=== PATIENT | female | born 1950 | race Asian ===

== ENCOUNTER 2023-08-28 17:19 | Emergency (ER) | payer MEDICARE, SELFPAY ==
--- NOTE | ~2023-08-28 | XR_ITS ---
EXAMINATION: SINGLE VIEW CHEST, RIGHT SHOULDER CLINICAL INFORMATION: Right-sided chest pain COMPARISON: Chest radiograph 02/11/2019 TECHNIQUE: Single view chest, 3 views right shoulder FINDINGS: Heart size upper limits of normal. No evidence of CHF. The aorta is unfolded. No infiltrates, effusions or lung masses are seen. Some minimal degenerative changes are present at the shoulder with some inferior acetabular osteophytes. Mild degenerative changes are present at the AC joint. No fractures or dislocations. No tendinous calcification. XR/XR chest 1V IMPRESSION: 1. No acute intrathoracic disease. 2. Mild degenerative changes right shoulder.
--- NOTE | ~2023-08-28 | XR_ITS ---
EXAMINATION: SINGLE VIEW CHEST, RIGHT SHOULDER CLINICAL INFORMATION: Right-sided chest pain COMPARISON: Chest radiograph 02/11/2019 TECHNIQUE: Single view chest, 3 views right shoulder FINDINGS: Heart size upper limits of normal. No evidence of CHF. The aorta is unfolded. No infiltrates, effusions or lung masses are seen. Some minimal degenerative changes are present at the shoulder with some inferior acetabular osteophytes. Mild degenerative changes are present at the AC joint. No fractures or dislocations. No tendinous calcification. XR/XR shoulder RT min 2V IMPRESSION: 1. No acute intrathoracic disease. 2. Mild degenerative changes right shoulder.
[2023-08-28 17:38] VITALS: BP 195/105; PULSE 108; RESP 18; TEMP 36.6; O2SAT 97; BMI 33.1
--- NOTE | 2023-08-28 17:42 | ECG_ITS ---
Test Reason : BODY ACHE Blood Pressure : / mmHG Vent. Rate : 107 BPM Atrial Rate : 107 BPM P-R Int : 200 ms QRS Dur : 082 ms QT Int : 332 ms P-R-T Axes : 020 -24 109 degrees QTc Int : [address] & T wave abnormality, consider lateral ischemia Abnormal ECG When compared with ECG of 11-FEB-2019 23:34, Vent. rate has increased BY 38 BPM T wave inversion less evident in Anterolateral leads Referred By: Generic ED Physician Electronically Signed By:ADRIENNE SABILLON MD
[2023-08-28 18:20] LABS: COVID-19 Test Negative (Negative); IDNOW Serial# 08D9AD1C
--- NOTE | 2023-08-28 21:35 | ED.GENADULT ---
HPI - General Adult General Chief complaint: General Medical Stated complaint: cold, body aches, hand inflammation Time Seen by Provider: 08/28/23 21:27 Source: patient and family Mode of arrival: ambulatory Limitations: no limitations History of Present Illness HPI narrative: Patient comes to the emergency room complaining of 3 weeks of right shoulder pain, right upper back pain and right-sided chest pain. Patient denies any injuries. Also, for a few days now, patient states that her left thumb has gradually become a bit erythematous and a bit painful, patient states she does have history of gout. Related Data Previous Rx's Medication Instructions Recorded colchicine (gout) 0.6 mg tablet 0.3 mg (1/2 x 0.6 mg) PO DAILY #3 08/29/23 tabs prednisone 10 mg tablet 10 mg PO DAILY #2 tabs 08/29/23 Allergies Allergy/AdvReac Type Severity Reaction Status Date / Time Penicillins [PENICILLINS] Allergy Unknown UNKNOWN Verified 08/28/23 17:37 Review of Systems Review of Systems: Constitutional : No Weight loss, No Fever, No Chills, No Night Sweats, No Fatigue, No Malaise ENT/Mouth : No Hearing loss, No Ear Pain, No Nasal Congestion, No Sinus Pain, No Hoarseness, No sore throat, No Rhinorrhea, No Swallowing Difficulty Eyes: No Eye Pain, No Swelling, No Redness, No Foreign Body, No Discharge, No Vision Changes Cardiovascular : No Chest Pain, No SOB, No Dyspnea on Exertion, No Orthopnea, No Edema, No Palpitations Respiratory : No Cough, No Sputum, No Wheezing, No Smoke Exposure, No Dyspnea Gastrointestinal : No Nausea, No Vomiting, No Diarrhea, No Constipation, No abdominal Pain, No Hematochezia, No Melena Genitourinary : no irregular bleeding, No Dysuria, No Urinary Frequency, No Hematuria, No Urinary Incontinence, No Urgency, No Flank Pain, No Urinary Flow Changes, No Hesitancy Musculoskeletal : Complaining of right shoulder pain, upper back pain radiating towards the right side of the upper chest, complaining of some pain on the left No Myalgias, No Joint Swelling Skin : Mild erythema over the left thumb. Neuro : No Weakness, No Numbness, No Paresthesias, No Loss of Consciousness, No Dizziness, No Headache Psych : No Anxiety/Panic, No Depression, No SI/HI/AH/VH, No Social Issues, Heme/Lymph: No Bruising, No Bleeding,No Lymphadenopathy Endocrine : No Polyuria, No Polydipsia, No Temperature Intolerance [facility] Past Medical History Medical History (Updated 08/29/23 @ 01:18 by Glenys Boyd MD) Hypertension Gout Social History Social History Smoked in Last 30 Days: No Use of substances other than those prescribed or required for medical reasons: No Advance Directives: No Advance Directives Information Provided: No Physical Exam ED Vital Signs: Vital Signs - 24 hr 08/28/23 17:38 08/28/23 22:36 08/28/23 23:15 Temperature 97.9 F 97.8 F Pulse Rate 108 H 103 H 97 Respiratory Rate 18 16 18 Blood Pressure 195/105 H 223/105 H 189/96 H Pulse Oximetry 97 98 97 Oxygen Delivery Method Room Air Room Air Room Air BMI result Body Mass Index 33.1 Const Other: Appearance: Alert. Oriented X3. No acute distress. Eyes: Pupils equal, round and reactive to light. ENT: Pharynx normal. Neck: Normal inspection. Neck supple. No lymph nodes noted. No crepitus CVS: Normal heart rate and rhythm. Pulses normal. Normal S1 and S2 Respiratory: No respiratory distress. Breath sounds normal. No Wheezing. No rales Abdomen: Soft and nontender. No rigidity. No distention. Skin: Skin warm and dry. Normal skin color. Normal skin turgor. Was very mildly erythematous, able to move her left thumb but states it starts doing so, no deformity, no ecchymosis, no snuffbox tenderness Extremities: No lower extremity edema. No Lacerations. No Rash, patient is able to abduct the right arm to approximately 90 degrees. Neuro: Oriented X 3. No motor deficit. No sensory deficit. Moving all extremities. No slurred speech. CN 2 through 12 grossly intact Psych: calm, cooperative, normal affect Course Course Course Narrative: -patient has history of gout. Labs pending -imaging pending Medications Administered Discontinued Medications Generic Name Dose Route Start Last Admin Trade Name Freq PRN Reason Stop Dose Admin Acetaminophen 975 mg 08/28/23 21:34 08/28/23 22:40 Acetaminophen 325 Mg Tablet PO 08/28/23 21:35 975 mg ONCE ONE Administration Sodium Chloride 1,000 mls @ 999 mls/hr 08/28/23 23:13 08/28/23 23:33 Ns IVCONT 08/29/23 00:13 999 mls/hr .Q1H1M ONE Administration Insulin Human Regular 5 unit 08/28/23 23:13 08/28/23 23:33 Insulin Regular, Human 100 Unit/Ml 3 Ml Vial IVPUSH 08/28/23 23:14 5 unit ONCE ONE Administration Labetalol HCl 100 mg 08/28/23 22:47 08/28/23 23:17 Labetalol Hcl 100 Mg Tablet PO 08/28/23 22:48 100 mg ONCE ONE Administration Protocol Medical Decision Making Medical Decision Making [facility] Narrative: -interpretation of labs: Patient's hematology slightly changed from previous labs. However, it has been about 4 years. Patient has creatinine of 1.64. Glucose did improve to 238 after IV fluids and insulin -given patient's elevated creatinine, colchicine dose was given at half dose, 0.3mg -patient overall states that she feels much better. Discussed that the dose of prednisone will increase her glucose for the next few days. Patient agreeable to take the prednisone. -cellulitis is not suspected. -hypertension improved, blood pressure now 131/71, patient was given 1 dose of p.o. labetalol. Patient has not taking her blood pressure medications yet, it has been over 24 hours, patient will take her meds at home as prescribed -my interpretation of EKG: Sinus tachycardia, 100 107, no ST segment depressions or elevations, no T-wave inversions, QTC 443 Differential Diagnosis Differential Diagnoses: The differential diagnosis associated with the presentation includes (Musculoskeletal pain, cellulitis, gout) Lab Data [facility] Lab Attestation statement: I reviewed the patient's lab results. 08/28/23 22:40 08/28/23 22:40 Labs: Lab Results 08/28/23 08/28/23 08/29/23 Range/Units 17:58 22:40 00:12 WBC 11.9 H (4.8-10.8) X10*3/uL RBC 3.95 L (4.20-5.50) X10*6/uL Hgb 11.6 L (12.0-16.0) g/dl Hct 35.1 L (37.0-47.0) % MCV 88.9 (80.0-98.0) fL MCH 29.4 (27.0-33.0) pg MCHC 33.0 (31.0-35.0) g/dl RDW 13.0 (11.0-16.0) % Plt Count 319 (160-400) X10*3/uL MPV 10.3 (9.4-12.3) fL Immature Gran % (Auto) 4.8 H (0.0-0.4) % Neut % (Auto) 59.4 (45-73) % Lymph % (Auto) 18.8 L (20-40) % [place] % (Auto) 10.8 (2-11) % Eos % (Auto) 5.9 H (0-4) % Baso % (Auto) 0.3 (0-2) % Lymph # (Auto) 2.2 (1.2-4.9) X10*3/uL [place] # (Auto) 1.3 H (0.1-1.2) X10*3/uL Eos # (Auto) 0.7 H (0.0-0.4) X10*3/uL Baso # (Auto) 0.0 (0.0-0.2) X10*3/uL Abs Immat Gran (auto) 0.57 H (0.00-0.03) X10*3/uL Absolute Neuts (auto) 7.1 (2.0-8.3) x10*3/uL Absolute Nucleated RBC 0.000 (0.0-0.012) X10*3/uL Nucleated RBC % (auto) 0.0 (0.0-0.2) /100WBC Sodium 138 (135-145) mmol/L Potassium 4.5 (3.3-5.1) mmol/L Chloride 108 (96-108) mmol/L Carbon Dioxide 21 L (22-29) mmol/L Anion Gap 14 (12-20) BUN 29 H (9-16) mg/dL Creatinine 1.64 H (0.5-1.4) mg/dL Estim Creat Clear Calc 28.8 Estimated GFR 31 POC Glucose 238 H (60-115) mg/dL Random Glucose 387 H* (60-115) mg/dL Uric Acid 7.6 H (2.4-5.7) mg/dL Calcium 10.2 (8.4-10.2) mg/dL Total Bilirubin 0.3 (0.0-1.0) mg/dL Direct Bilirubin 0.1 (0.0-0.5) mg/dL AST 14 (5-31) U/L ALT 12 (0-31) U/L Alkaline Phosphatase 78 (39-117) U/L Total Protein 7.8 (6.5-8.0) g/dL Albumin 3.8 (3.5-5.0) g/dL COVID-19 (DINO) Negative (Negative) COVID-19 Clin Com See Note Independent Interpretation I performed an independent interpretation of an: Plain X-Ray Interpretation: My interpretation of x-rays of the shoulder/chest, no acute abnormalities, no fracture, no dislocation, no pneumonia Radiology Impression Discussion of test interpretation with radiology: I have reviewed the radiologist's reading. Radiologist Impression: FINDINGS: Heart size upper limits of normal. No evidence of CHF. The aorta is unfolded. No infiltrates, effusions or lung masses are seen. Some minimal degenerative changes are present at the shoulder with some inferior acetabular osteophytes. Mild degenerative changes are present at the AC joint. No fractures or dislocations. No tendinous calcification. XR/XR shoulder RT min 2V IMPRESSION: 1. No acute intrathoracic disease. 2. Mild degenerative changes right shoulder. Independent Historian Clinical information obtained from an independent historian. History obtained from or confirmed by: Other (Patient's daughter) Critical Care Time Critical Care Time Critical Care Time: Yes Total Critical Care Time: 60 Attestation: I have personally provided critical care time. Time includes review of lab data, radiology results, discussion with consultants, and monitoring for potential decompensation. Intervention performed as documented. Discharge Plan Discharge Clinical Impression: Acute hyperglycemia, Gout, Musculoskeletal pain, Hypertension Patient Disposition: Home, Self-Care Instructions: Gout (ED), Diabetic Hyperglycemia (ED) Additional Instructions: Please follow-up with your primary care physician tomorrow. If you have any worsening or new symptoms, please return to the emergency room or call 911 Prescriptions: New colchicine (gout) 0.6 mg tablet 0.3 mg PO DAILY Qty: 3 0RF prednisone 10 mg tablet 10 mg PO DAILY Qty: 2 0RF
[2023-08-28 22:36] VITALS: BP 223/105; PULSE 103; RESP 16; TEMP 36.6; O2SAT 98
[2023-08-28] MEDS: Acetaminophen 325 MG TABLET 975 MG PO (22:40)
[2023-08-28 22:44] LABS: MANUAL DIFF FLAG NO
[2023-08-28 22:46] LABS: Basophils Percent Auto 0.3 % (0-2); Eosinophils Absolute Auto 0.7 X10*3/uL (0.0-0.4); Eosinophils Percent Auto 5.9 % (0-4); Hematocrit 35.1 % (37.0-47.0); Hemoglobin 11.6 g/dl (12.0-16.0); Imm Gran Abs Auto 0.57 X10*3/uL (0.00-0.03); Imm Gran Pct Auto 4.8 % (0.0-0.4); Lymphocytes Absolute Auto 2.2 X10*3/uL (1.2-4.9); Lymphocytes Percent Auto 18.8 % (20-40); Mean Corpuscular Hemoglobin 29.4 pg (27.0-33.0); Mean Corpuscular Volume 88.9 fL (80.0-98.0); Mean Platelet Volume 10.3 fL (9.4-12.3); Monocytes Absolute Auto 1.3 X10*3/uL (0.1-1.2); Monocytes Percent Auto 10.8 % (2-11); Neutrophils Absolute Auto 7.1 x10*3/uL (2.0-8.3); Neutrophils Percent Auto 59.4 % (45-73); Platelet Count 319 X10*3/uL (160-400); Red Blood Count 3.95 X10*6/uL (4.20-5.50); White Blood Count 11.9 X10*3/uL (4.8-10.8)
[2023-08-28 23:03] LABS: Alanine Aminotransferase 12 U/L (0-31); Albumin Level 3.8 g/dL (3.5-5.0); Alkaline Phosphatase 78 U/L (39-117); Anion Gap 14 (12-20); Aspartate Amino Transferase 14 U/L (5-31); Bilirubin Direct 0.1 mg/dL (0.0-0.5); Bilirubin Total 0.3 mg/dL (0.0-1.0); Blood Urea Nitrogen 29 mg/dL (9-16); Calcium 10.2 mg/dL (8.4-10.2); Carbon Dioxide 21 mmol/L (22-29); Chloride 108 mmol/L (96-108); Creatinine Clr Calc Pharmacy 28.8; Estimated Glomerular Filt Rate 31; Glucose Random 387 mg/dL (60-115); Potassium 4.5 mmol/L (3.3-5.1); Sodium 138 mmol/L (135-145); Total Protein 7.8 g/dL (6.5-8.0); Uric Acid 7.6 mg/dL (2.4-5.7)
[2023-08-28 23:15] VITALS: BP 189/96; PULSE 97; RESP 18; O2SAT 97
[2023-08-28] MEDS: Labetalol HCL 100 MG TABLET PO (23:17)
[2023-08-28] MEDS: 0.9 % Sodium Chloride 1,000 ML 999 ML IVCONT (23:33)
[2023-08-28] MEDS: Insulin Regular, Human 100 UNIT/ML 3 ML VIAL IVPUSH (23:33)
[2023-08-29 00:17] LABS: Glucose, Whole Blood 238 mg/dL (60-115)
[2023-08-29] MEDS: Colchicine 0.6 MG TABLET 0.3 MG PO (01:48)
[2023-08-29] MEDS: predniSONE 10 MG TABLET PO (01:48)
== END 2023-08-29 03:37 | disposition home or self-care (01) ==
PROVIDERS: Emergency Provider Emergency Medicine
DX: E11.65 Type 2 diabetes mellitus with hyperglycemia (principal); M10.9 Gout, unspecified; M79.10 Myalgia, unspecified site; R00.0 Tachycardia, unspecified; I10 Essential (primary) hypertension; Z11.52 Encounter for screening for COVID-19
CPT/HCPCS: 36415; 71045; 73030; 80048; 80076; 82947; 84550; 85025; 87635; 93005; 96374; 99284; 99285

== ENCOUNTER 2024-01-12 21:45 | Emergency (ER) | payer MEDICARE, SELFPAY ==
--- NOTE | ~2024-01-12 | XR_ITS ---
EXAMINATION: XR ANKLE, RIGHT CLINICAL INFORMATION: Right ankle pain. Swelling. COMPARISON: None available. TECHNIQUE: AP, lateral, and mortise views of the right ankle. FINDINGS: Soft tissues are swollen at the ankle. Bones are osteopenic. 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 No erosions or appreciable joint effusion. Subtalar and [place] joints are unremarkable. No appreciable joint effusion. No fracture or malalignment identified on these images. Small enthesopathic spurs are present at the Achilles tendon insertion and plantar fascial origin on the calcaneus. XR/XR ankle RT min 3V IMPRESSION: 1. Soft tissue swelling at the ankle. No acute osseous findings. 2. Mild talocrural osteoarthritis.
[2024-01-12 22:19] VITALS: BP 195/106; PULSE 93; RESP 18; TEMP 36.7; O2SAT 97; BMI 32.0
[2024-01-13 02:11] VITALS: BP 191/89; PULSE 79; RESP 18; TEMP 36.6; O2SAT 98
[2024-01-13] MEDS: Ibuprofen 400 MG TABLET PO (02:47)
[2024-01-13] MEDS: Acetaminophen 325 MG TABLET 975 MG PO (02:47)
--- NOTE | 2024-01-13 02:53 | ED.LOWEXIN ---
HPI - Extremity Injury (Lower) General Chief Complaint: Extremity Injury, Lower Stated Complaint: twisted ankle Time Seen by Provider: 01/13/24 01:58 Source: patient Mode of arrival: ambulatory History of Present Illness HPI Narrative: 73-year-old female who twisted her ankle approximately 3 weeks ago while in [place] in continues to have mild right ankle swelling and pain. Related Data Previous Rx's Medication Instructions Recorded colchicine 0.6 mg tablet 0.3 mg (1/2 x 0.6 mg) PO DAILY #3 08/29/23 tabs prednisone 10 mg tablet 10 mg PO DAILY #2 tabs 08/29/23 tramadol 50 mg tablet 50 mg PO Q8H PRN pain #7 tabs 08/29/23 Allergies Allergy/AdvReac Type Severity Reaction Status Date / Time Penicillins [PENICILLINS] Allergy Unknown UNKNOWN Verified 01/12/24 22:19 Review of Systems Review of Systems: Pertinent positives and negatives as stated in HPI [facility] Past Medical History Source: nursing notes reviewed Medical History Hypertension Gout Social History Social History Advance Directives: No Advance Directives Information Provided: No Physical Exam Vital Signs: Vital Signs: Last Vital Signs Temp 97.8 F 01/13/24 02:11 Pulse 79 01/13/24 02:11 Resp 18 01/13/24 02:11 BP 191/89 H 01/13/24 02:11 Pulse Ox 98 01/13/24 02:11 O2 Del Method Room Air 01/13/24 02:11 BMI result Body Mass Index 32.0 VITAL SIGNS: Reviewed. GENERAL: Well developed, well nourished, in no acute distress. HEAD: Normocephalic/atraumatic EYES: PERRLA, EOMI LUNGS: Normal breath sounds. No adventitious sounds or accessory muscle use. SpO2<98> CARDIOVASCULAR: Regular rate and rhythm without noted murmurs. ABDOMEN: Soft, non-tender, non-distended with bowel sounds. MUSCULOSKELETAL: No tenderness, deformities, or effusions noted on gross inspection. EXTREMITIES: No cyanosis, clubbing or edema. RIGHT ANKLE: No gross deformity, swelling around the right ankle, palpable pulses, warm foot, capillary refill less than 3 seconds SKIN: Inspection of the skin reveals no rashes NEUROLOGIC: Alert and oriented x 4. Strength and sensation to light touch were grossly intact x 4. Medications Administered Discontinued Medications Generic Name Dose Route Start Last Admin Trade Name Candie PRN Reason Stop Dose Admin Acetaminophen 975 mg 01/13/24 02:25 01/13/24 02:47 Acetaminophen 325 Mg Tablet PO 01/13/24 02:26 975 mg ONCE ONE Administration Ibuprofen 400 mg 01/13/24 02:25 01/13/24 02:47 Ibuprofen 400 Mg Tablet PO 01/13/24 02:26 400 mg ONCE ONE Administration Medical Decision Making Medical Decision Making MDM Narrative: 73-year-old female with history and clinical presentation, could be ankle fracture versus sprain, there is no surrounding ecchymosis. Patient offered combination analgesics and review of x-ray is negative for fracture or dislocation but does demonstrate swelling consistent with ankle sprain. Kelvin wrap applied in patient able to ambulate with assistance out of the emergency room. Differential Diagnosis Differential Diagnoses: The differential diagnosis associated with the presentation includes Please see the discussion above Admission/Observation Consideration of admission/observation: Escalation of care including admission/observation considered Please see the discussion above Radiology Impression Discussion of test interpretation with radiology: I have reviewed the radiologist's reading. Radiologist Impression: Please see the discussion above External Record Review External record reviewed: Outpatient record and Prior outpatient labs Critical Care Time Critical Care Time Critical Care Time: Yes Total Critical Care Time: 30 Attestation: I personally attest to this time spent taking care of the patient. Discharge Plan Discharge Clinical Impression: Ankle sprain and strain Patient Disposition: Home, Self-Care Instructions: Ankle Sprain (ED), R.I.C.E. Treatment (ED), Ice Pack Application (ED) Additional Instructions: Recommend [id number] Tylenol/ibuprofen. Follow-up with primary care doctor in the next 1-2 days. Return to the ER for any worsening symptoms. Prescriptions: No Action colchicine 0.6 mg tablet 0.3 mg PO DAILY Qty: 3 0RF prednisone 10 mg tablet 10 mg PO DAILY Qty: 2 0RF tramadol 50 mg tablet 50 mg PO Q8H PRN (Reason: pain) Qty: 7 0RF
[2024-01-13 02:54] VITALS: BP 191/89; PULSE 79; RESP 18; TEMP 36.6
== END 2024-01-13 02:56 | disposition home or self-care (01) ==
PROVIDERS: Emergency Provider Student in an Organized Health Care Education/Training Program
DX: S93.401A Sprain of unspecified ligament of right ankle, initial encounter (principal); S96.911A Strain of unspecified muscle and tendon at ankle and foot level, right foot, initial encounter; X50.1XXA Overexertion from prolonged static or awkward postures, initial encounter; Y93.9 Activity, unspecified; Y92.9 Unspecified place or not applicable; Y99.9 Unspecified external cause status
CPT/HCPCS: 73610; 99283

== ENCOUNTER 2024-01-30 13:02 | Outpatient (AMB) | payer MEDICARE, SELFPAY ==
[2024-01-30 13:04] VITALS: BP 140/80; PULSE 82; TEMP 36.1; O2SAT 95; BMI 33.2
--- NOTE | 2024-01-30 13:04 | MHC.OFFWIV ---
Intake Vital Signs 01/30/24 13:04 Height 5 ft Weight 170 lb BMI 33.2 BP 140/80 H Blood Pressure Location Lt brachial Position Sitting Pulse 82 Pulse Source Pulse Oximeter Temp 97.0 F Temp Source Temporal Artery Scan Pulse Oximetry (%) 95 Oxygen Delivery Method Room Air Intake Visit Reasons: EP BP ok per CB Intake Note: pt is here today for BP Patient Tobacco Use Status: Never used Tobacco Allergies Penicillins [PENICILLINS] Allergy (Unknown, Verified 01/30/24 13:08) UNKNOWN Do you need a note to return to daycare/school/sports/work: No HPI EP BP ok per CB HPI Details Enma is a 73 year old female patient presents with her daughter. She recently moved here from [facility] and has an appointment next week on 02/04 with Nick Nelson NP to establish care with PCP. She has run out of her Jardiance, and will be running out of her Carvedilol this week. She is getting records from [facility] to bring to PCP visit next week. She denies any complaints at this time. She reports doing well on medications. [facility] Medical History Hypertension Gout Social History Patient Tobacco Use Status: Never used Tobacco Review of Systems Const All systems reviewed & are unremarkable except as noted in HPI and below Physical Exam Vital Signs: Last Vital Signs Temp 97.0 F 01/30/24 13:04 Pulse 82 01/30/24 13:04 BP 140/80 H 01/30/24 13:04 Pulse Ox 95 01/30/24 13:04 Oxygen Delivery Method Room Air 01/30/24 13:04 BMI result Body Mass Index 33.2 Const General: cooperative, healthy appearing and no acute distress HEENT Head: Yes normal to inspection Neck Neck: Yes no lymphadenopathy Resp Effort & Inspection: normal respiratory effort Auscultation: clear to auscultation bilaterally Cardio Rate: regular rate Rhythm: regular rhythm Skin General skin exam: no rashes or lesions noted Extrem General: Yes capillary refill normal and Yes no clubbing, cyanosis or edema Psych Appearance: grossly normal Mental Status: mental status grossly normal Speech and movement: Normal speech and movement present Assessment & Plan Assessment & Plan (1) Encounter for medication refill: Code(s): Z76.0 - Encounter for issue of repeat prescription Plan: Prescriptions reviewed in the office today. Medications refilled - patient sees PCP next week to est. care. (2) Hypertension: Code(s): I10 - Essential (primary) hypertension Plan: States she checks BP at home. Reviewed expected parameters for this. She will f/u with PCP next week to establish care as a new patient. Will refill Carvedilol 25mg daily in the meantime. Reports she is on Jardiance for CKD and has recently run out of medication. Will refill at 10mg daily at this time. Medications: New carvedilol must administer with a meal/food 25 mg PO ONCE 14 tabs 0RF I10 - Essential (primary) hypertension empagliflozin (Jardiance) 10 mg PO DAILY 14 tabs 0RF Z76.0 - Encounter for issue of repeat prescription Discontinued tramadol Discontinued Reason: Stopped on Transfer 50 mg PO Q8H PRN 7 tabs 0RF pain colchicine Discontinued Reason: Stopped on Transfer 0.3 mg (1/2 x 0.6 mg) PO DAILY 3 tabs 0RF prednisone Discontinued Reason: Patient no longer taking 10 mg PO DAILY 2 tabs 0RF Coding Level of Care Code New Pt Level 4 (81827) Diagnoses Encounter for medication refill Z76.0 Hypertension I10
== END 2024-01-30 13:41 | disposition home or self-care (01) ==
PROVIDERS: Visit Provider Nurse Practitioner Family
DX: Z76.0 Encounter for issue of repeat prescription (principal); I10 Essential (primary) hypertension
CPT/HCPCS: 99204

== ENCOUNTER 2024-02-05 10:13 | Outpatient (AMB) | payer MEDICARE, SELFPAY ==
--- NOTE | 2024-02-05 10:19 | A.OFFPC_ITS ---
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 Care Ok per AE Intake Note: Pt is here to est care does not have any records all her labs are in [place] Allergies Penicillins [PENICILLINS] Allergy (Unknown, Verified 02/05/24 10:42) Rash Medication List - Last Reconciled 02/05/24 by ROBERTO Whitehead amlodipine-valsartan 5-160 mg 1 tab PO DAILY carvedilol 25 mg PO ONCE colchicine 0.3 mg PO DAILY empagliflozin (Jardiance) 10 mg PO DAILY Tobacco use date assessed: 02/05/24 Fall risk assessment: 2 + Falls in past year Last assessed Fall Risk: 02/05/24 Dental Screening Dental Screen Date: 02/05/24 Did you have a dental visit in the last 12 months?: No Did you have a dental problem in the last 6 months where you did not have access to dental care?: No Was dental information given to patient?: No HPI HPI Comments History of Present Illness Details Patient is a 73-year-old female who I am meeting for the 1st time. Patient is accompanied by her daughter at the appointment. She recently moved from [facility] has no medical records with her. Does have previous visit in our walk-in clinic 1 week prior to this appointment for refill on her blood pressure medication which is a combination of 5 mg amlodipine and 160 mg valsartan. Patient has a past medical history of diabetes type 2, gout, hypertension. Patient does not know what medications she takes, is going to bring back medication list today. Patient takes insulin but does not know the units or what type. Will need to verify. Patient had been taking Jardiance, had to stop due to insurance coverage issues. Patient's A1c in office today is 10.6. Denies polyuria polydipsia. Does have right knee pain, also has pitting edema bilateral lower extremities. Patient will be started on metformin today. Patient also does not have glucometer, will send prescribe. Patient has slight bilateral wheeze of upper lobes in office today. Will obtain chest x-ray. Will obtain EKG. Will obtain echocardiogram, and sent referral to Cardiology. Will order labs including BNP. Patient is due for Podiatry and Ophthalmology, will refer. Patient has been advised she needs to make ophthalmology appointment based on her insurance coverage. Patient denies any vision changes or ocular involvement at this time. Patient is due for colonoscopy, will refer. Patient is due for mammogram, will refer. Patient is due for bone density scan will refer. Patient would like coding consultant for well-woman visit, will refer. On physical exam patient has bilateral wheeze upper lobes, normal heart rate and rhythm S1-S2. Patient has +2 pitting edema bilateral lower extremities. Has right knee pain. Patient states she had a knee sprain from a fall 3 months prior. Will obtain x-ray of right knee. Patient does also have history of gout will draw labs including uric acid. [facility] Medical History (Updated 02/05/24 @ 11:22 by ROBERTO Whitehead) Cataract Hypertension Gout Surgical History (Updated 02/05/24 @ 10:49 by ROBERTO Whitehead) History of cholecystectomy H/O: hysterectomy Social History (Reviewed 02/05/24 @ 10:32 by Pauline Hurd [facility] Housing: Apartment Patient Tobacco Use Status: Never used Tobacco Current occupational status: retired Questionnaire PHQ-9 Over the last 2 weeks, how often have you been bothered by any of the following problems? 1. Little interest or pleasure in doing things: more than half the days 2. Feeling down, depressed, or hopeless: not at all 3. Trouble falling or staying asleep, or sleeping too much: more than half the days 4. Feeling tired or having little energy: more than half the days 5. Poor appetite or overeating: several days 6. Feeling bad about yourself - or that you are a failure or have let yourself or your family down: not at all 7. Trouble concentrating on things, such as reading the newspaper or watching television: not at all 8. Moving or speaking so slowly that other people could have noticed. Or the opposite - being so fidgety or restless that you have been moving around a lot more than usual: nearly every day 9. Thoughts that you would be better off or of hurting yourself in some way: not at all Total score: 10 Source: Developed by Drs. Fermin L. FletcherEvelyn shook Kurt Kroenke and colleagues, with an educational rubina from [employer]. Thrive Questionnaire Date Thrive assessed: 02/05/24 I am a: Patient What is your living situation today?: I have a steady place to live Within the past 12 months, did the food you bought not last and you didn't have the money to get more?: Sometimes True Within the past 12 months, did you worry whether your food would run out before you got money to buy more?: Sometimes True Do you have trouble paying for medicines?: No Do you have trouble getting transportation to medical appointments?: No Do you have trouble paying your heating and electricity bill?: No Do you have trouble taking care of your child, family member or friend?: No Do you have trouble with day-to-day activities such as bathing, preparing meals, shopping, managing finances, etc.?: Yes Are you currently unemployed and looking for a job?: No Are you interested in more education?: No THRIVE Score: 2 AUDIT C Alcohol Use Questionnaire (AUDIT-C) 1. How often do you have a drink containing alcohol?: Never Total Score: 0 LORA-7 AMB Questionnaire LORA-7 Date LORA - 7 assessed: 02/05/24 Feeling nervous, anxious, or on edge: 1 = Several days Not being able to stop or control worryin = Not at all Worrying too much about different things: 1 = Several days Trouble relaxin = Several days Being so restless that it is hard to sit still: 0 = Not at all Becoming easily annoyed or irritable: 1 = Several days Feeling afraid as if something awful might happen: 0 = Not at all Total LORA-7 score (0-4 normal; 5-9 mild; 10-14 moderate; 15-21 severe): 4 Source: Developed by Drs. Fermin Bynum, Evelyn Sanchez, Gabo Alamo and colleagues, with an educational rubina from [employer]. Review of Systems Const All systems reviewed & are unremarkable except as noted in HPI and below Denies headache(s) ENT Denies dizziness and Denies headache(s) Card Denies chest pain and Denies dyspnea Resp Denies cough, Denies dyspnea and Reports wheezing GI Denies diarrhea, Denies nausea and Denies vomiting Musc Reports arthralgias (Right knee) and Denies tingling Neuro Denies dizziness, Denies headache(s), Denies Sensory deficit (Neuro) and Denies tingling Endo Denies polydipsia and Denies polyuria Aller/Immun Reports wheezing Physical exam (Primary Care) Vital Signs: Last Vital Signs Pulse 87 02/05/24 10:20 BP 138/80 02/05/24 10:20 Pulse Ox 100 02/05/24 10:20 Oxygen Delivery Method Room Air 02/05/24 10:20 BMI result Body Mass Index 33.1 Tobacco/Smoking Status: Tobacco use Status Tobacco use date assessed 02/05/24 02/05/24 10:34 Patient Tobacco Use Status Never used Tobacco 02/05/24 10:20 Const General: cooperative and no acute distress Orientation/consciousness: patient oriented x3 Limitations: no limitations HENMT Head: Yes normal to inspection Eyes Pupils: Equal, round and reactive pupils present EOM: EOMs intact bilaterally Direct Ophthalmoscopy: normal light reflex and no photophobia Neck Neck: Yes normal visual inspection, Yes full ROM and Yes no lymphadenopathy Resp Effort & Inspection: normal respiratory effort and able to speak in complete sentences Auscultation: wheezes (Upper lobes bilaterally) Cardio Rate: regular rate Rhythm: regular rhythm Peripheral pulses: Peripheral pulses 2+ throughout General: Yes no CVA tenderness Back/Spine/Pelvis Back: no CVA tenderness Neuro General: patient oriented x3 Cranial nerves: Yes Equal, round and reactive pupils present Sensory Exam: No Sensory deficit (Neuro) Extrem General: Yes normal to inspection Right lower extremity: edema Details: pitting and 2+ and knee Details: tenderness; no swelling, no deformity and no unusual warmth Left lower extremity: edema Details: pitting and 2+ Psych Thought process: Normal thought process present Thought content: Normal thought content present Insight: Good insight present (Psych) Judgement: Good judgement present (Psych) Office Procedures EKG [id number], Complete Results AMB Hemoglobin A1c AMB Hemoglobin A1c 10.6 % Last Edit by Pauline Hurd CMA on 02/05/24 11 :02 Assessment and Plan Assessment & Plan (1) Diabetes type 2, no ocular involvement: Comment: Patient started on metformin. Patient should restart Jardiance. Will send patient glucometer and test kit. Patient has referral to Podiatry, patient will be making appointment for Ophthalmology. Patient should take blood sugar measurements at home. Patient meeting with community nurse navigator in 1 week. Patient will have follow-up in 2 weeks. Code(s): E11.9 - Type 2 diabetes mellitus without complications (2) 2+ pitting edema: Comment: Will draw labs including BNP. Will obtain EKG, will obtain echocardiogram, will refer to Cardiology. Code(s): R60.9 - Edema, unspecified Plan: Patient bring him back medication list so a can be updated properly (3) Right knee pain: Comment: Will obtain right knee x-ray. Code(s): M25.561 - Pain in right knee Qualifiers: Chronicity: unspecified Qualified Code(s): M25.561 - Pain in right knee Plan: Take your medications as prescribed. If you were prescribed antibiotics today, it is important that you take your medication to their entirety, do not skip any doses, do not finish them early. Follow-up with your primary care provider this week. Return to the emergency department with new or worsening symptoms. Such as fevers, chills, chest pain, shortness of breath, nausea, vomiting, dizziness, headache, vision changes, lethargy In case of emergency call 911 Plan Follow-up in 2 weeks. Orders: Orders Comprehensive Met. Panel Today Z91.89 - Other specified personal risk factors, not elsewhere classified Lipid Panel Today Z13.220 - Encounter for screening for lipoid disorders Vitamin D 25-OH (D2 and D3) Today Z13.21 - Encounter for screening for nutritional disorder Vitamin B6 Today Z13.21 - Encounter for screening for nutritional disorder UA CC w/rflx Micro + Cult Today Z13.89 - Encounter for screening for other disorder Uric Acid Today M10.9 - Gout, unspecified XR DEXA axial skeleton Today Z78.0 - Asymptomatic menopausal state CA echo transthoracic complete Today R94.31 - Abnormal electrocardiogram [ECG] [EKG] XR chest 2V Today R06.2 - Wheezing AMB EKG-In Office Today Z13.6 - Encounter for screening for cardiovascular disorders AMB Hemoglobin A1c Today E11.9 - Type 2 diabetes mellitus without complications XR knee RT 3V Today M25.561 - Pain in right knee Complete Blood Count Auto Diff Today Z13.0 - Encounter for screening for diseases of the blood and blood-forming organs and certain disorders involving the immune mechanism Vitamin B12 Today Z13.21 - Encounter for screening for nutritional disorder TSH reflex Free T4 Today Z13.29 - Encounter for screening for other suspected endocrine disorder MM tomosynthesis screening BI Today Z12.31 - Encounter for screening mammogram for malignant neoplasm of breast B Type Natriuretic Peptide Today R60.9 - Edema, unspecified Referrals Gastroenterology Referral Z12.11 - Encounter for screening for malignant neoplasm of colon Cardiology Referral R94.31 - Abnormal electrocardiogram [ECG] [EKG] Podiatry Referral E11.9 - Type 2 diabetes mellitus without complications SHIPPING INSPECTOR Referral Z01.419 - Encounter for gynecological examination (general) (routine) without abnormal findings Medications: New blood sugar diagnostic (FreeStyle Lite Strips) As directed 100 ea 0RF lancets (FreeStyle Lancets) As directed 100 ea 0RF amlodipine-valsartan 5-160 mg 1 tab PO DAILY 90 tabs 0RF metformin 850 mg PO BID 180 tabs 0RF blood-glucose meter (FreeStyle Lite Meter kit) As directed 1 ea 0RF Changed From empagliflozin (Jardiance) 10 mg PO DAILY 14 tabs 0RF Z76.0 - Encounter for issue of repeat prescription To Jardiance (empagliflozin) 10 mg PO DAILY 90 tabs 0RF NS Z76.0 - Encounter for issue of repeat prescription Coding Level of Care Code Est Pt Level 4 (95547) Diagnoses Diabetes type 2, no ocular involvement E11.9 2+ pitting edema R60.9 Right knee pain, unspecified chronicity M25.561 Chronicity: unspecified CPT Codes EKG - CPT: 02050-[id number], Complete ([id number]) Time Spent (min) 35
[2024-02-05 10:20] VITALS: BP 138/80; PULSE 87; O2SAT 100; BMI 33.1
== END 2024-02-05 12:24 | disposition home or self-care (01) ==
PROVIDERS: Visit Provider Nurse Practitioner Primary Care
DX: E11.9 Type 2 diabetes mellitus without complications (principal); R60.9 Edema, unspecified; M25.561 Pain in right knee
CPT/HCPCS: 83036; 93000; 99214

== ENCOUNTER 2024-02-05 11:18 | Outpatient (REF) | payer MEDICARE, SELFPAY ==
--- NOTE | ~2024-02-05 | XR_ITS ---
EXAMINATION: XR CHEST CLINICAL INFORMATION: Reason for Exam R06.2 - Wheezing COMPARISON: Chest radiograph 08/28/2023 TECHNIQUE: 2 views of the chest FINDINGS: Lines and tubes: None. Clear lungs. No pleural effusion. No pneumothorax. Unchanged cardiomediastinal silhouette. XR/XR chest 2V IMPRESSION: * Clear lungs.
--- NOTE | ~2024-02-05 | XR_ITS ---
EXAMINATION: XR KNEE, RIGHT CLINICAL INFORMATION: Reason for Exam M25.561 - Pain in right knee COMPARISON: None TECHNIQUE: 3 views of the knee FINDINGS: No acute fracture or dislocation. Moderate degenerative changes of the knee with loss of lateral compartment joint space, small tricompartmental osteophytes and quadriceps tendon enthesopathy. Osteopenia. No joint effusion. Soft tissues are unremarkable. XR/XR knee RT 3V IMPRESSION: 1. Moderate degenerative changes of the knee worst involving the lateral compartment. 2. Osteopenia.
[2024-02-05 13:42] LABS: B Type Natriuretic Peptide 349 pg/mL (<100)
[2024-02-05 13:45] LABS: Appearance Urine Cloudy; Color Urine Yellow; Glucose Urine UA >=1000 mg/dL (Negative); Leukocyte Esterase Urine Trace (Negative); Nitrite Urine Negative (Negative); UMIC TRIGGER UACC YES; Urine Blood Moderate (2+) (Negative); Urine Ketones Negative (Negative); Urine Protein 300 (3+) mg/dL (Neg-Trace)
[2024-02-05 13:49] LABS: Bacteria Urine 4+ (None Seen); Hyaline Casts Urine 0-2 /LPF (0-2); Squamous Epithelial Cell Urine 0-2 /HPF (0-2); UACC Culture Trigger YES; WBC Urine >50 /HPF (0-5)
[2024-02-05 14:02] LABS: Hematocrit 32.8 % (37.0-47.0); Hemoglobin 10.5 g/dl (12.0-16.0); Mean Corpuscular Hemoglobin 28.5 pg (27.0-33.0); Mean Corpuscular Volume 89.1 fL (80.0-98.0); Mean Platelet Volume 11.4 fL (9.4-12.3); Platelet Count 286 X10*3/uL (160-400); Red Blood Count 3.68 X10*6/uL (4.20-5.50); Red Cell Distribution Width 14.1 % (11.0-16.0); White Blood Count 11.4 X10*3/uL (4.8-10.8)
[2024-02-05 14:35] LABS: Alanine Aminotransferase 11 U/L (0-31); Albumin Level 3.9 g/dL (3.5-5.0); Alkaline Phosphatase 84 U/L (39-117); Anion Gap 13 (12-20); Aspartate Amino Transferase 12 U/L (5-31); Bilirubin Total 0.3 mg/dL (0.0-1.0); Blood Urea Nitrogen 43 mg/dL (9-16); Calcium 9.9 mg/dL (8.4-10.2); Carbon Dioxide 24 mmol/L (22-29); Chloride 108 mmol/L (96-108); Estimated Glomerular Filt Rate 26; Glucose Random 304 mg/dL (60-115); Potassium 4.6 mmol/L (3.3-5.1); Sodium 140 mmol/L (135-145); Total Protein 7.5 g/dL (6.5-8.0); Uric Acid 7.8 mg/dL (2.4-5.7)
[2024-02-05 14:38] LABS: TSH reflex Free T4 2.52 uIU/mL (0.32-4.0)
[2024-02-05 14:53] LABS: Band Neutrophils Percent 1 % (3-5); Eosinophils Absolute Manual 0.1 X10*3/uL (0.0-0.4); Eosinophils Percent Manual 1 % (0-4); Lymphocytes Absolute Manual 1.9 X10*3/uL (1.2-4.9); Lymphocytes Percent Manual 17 % (20-40); Metamyelocytes Absolute 0.2 X10*3/uL; Metamyelocytes Percent 2 %; Monocytes Absolute Manual 1.7 X10*3/uL (0.1-1.2); Monocytes Percent Manual 15 % (2-11); Myelocytes Absolute 0.5 X10*/uL; Myelocytes Percent 4 %; Neutrophils Percent Manual 60 % (45-73)
[2024-02-05 14:55] LABS: RBC Morphology NORMAL
[2024-02-05 14:56] LABS: Platelet Estimate NORMAL (NORMAL); Platelet Morphology Comment NORMAL
[2024-02-05 19:49] LABS: Vitamin B12 759 pg/mL (200-900)
[2024-02-08 14:09] LABS: Vitamin D 25-OH, D2 <4 ng/mL; Vitamin D 25-OH, D3 13 ng/mL; Vitamin D 25-OH, Total 13 ng/mL (30-100)
[2024-02-09 15:53] LABS: Vitamin B6 3.1 ng/mL (2.1-21.7)
== END 2024-02-05 11:19 | disposition home or self-care (01) ==
LOC: HO.HMGCX 11:18
PROVIDERS: PCP Nurse Practitioner Primary Care; Visit Provider Nurse Practitioner Primary Care
DX: Z13.89 Encounter for screening for other disorder (principal)
CPT/HCPCS: 36415; 71046; 73562; 80053; 81001; 82306; 82607; 83880; 84207; 84443; 84550; 85007; 85025; 85027; 87086; 87088; 87186

== ENCOUNTER 2024-02-06 02:11 | Inpatient (IN) | payer MEDICARE, SELFPAY ==
[2024-02-06] VITALS (13 sets, daily range): BP systolic 117–175; BP diastolic 69–85; PULSE 69–109; RESP 16–25; TEMP 36.1–37.1; O2SAT 94–100; BMI 34.3
--- NOTE | 2024-02-06 | ECG_ITS ---
Test Reason : sob Blood Pressure : / mmHG Vent. Rate : 078 BPM Atrial Rate : 078 BPM P-R Int : 198 ms QRS Dur : 084 ms QT Int : 374 ms P-R-T Axes : 068 -01 099 degrees QTc Int : 426 ms Normal sinus rhythm T wave inversions- consider ischemia Abnormal ECG When compared with ECG of 28-AUG-2023 17:51, No significant change was found Referred By: Generic ED Physician Electronically Signed By:Sergo Adorno
--- NOTE | ~2024-02-06 | US_ITS ---
EXAMINATION: US VENOUS ULTRASOUND WITH DOPPLER LOWER EXTREMITY, BILATERAL CLINICAL INFORMATION: Bilateral legs edema COMPARISON: None available. TECHNIQUE: Ultrasound of the deep veins is performed from the hip to the calf with compression sonography and color and pulse Doppler assessment. Spectral analysis with color-flow imaging is performed. FINDINGS: RIGHT: There is normal venous compression and respiratory variation and augmented flow. The visualized common femoral vein, superficial femoral vein, profunda femoral vein, popliteal vein, and the trifurcation region shows no evidence of deep venous thrombosis. There is no significant popliteal fossa cyst. Few reactive appearing lymph nodes seen in the right groin. Peroneal vein is not seen LEFT: There is normal venous compression and respiratory variation and augmented flow. The visualized common femoral vein, superficial femoral vein, profunda femoral vein, popliteal vein, and the trifurcation region shows no evidence of deep venous thrombosis. There is no significant popliteal fossa cyst. Peroneal vein is not seen If the patient's symptoms persist, followup ultrasound in 5 days 7 days might be of value to exclude proximal propagation from a non-visualized calf vein. US/US venous duplex LE BI IMPRESSION: No DVT demonstrated in the bilateral lower extremity.
--- NOTE | ~2024-02-06 | US_ITS ---
EXAMINATION: US RETROPERITONEAL LIMITED (RENAL ONLY) CLINICAL INFORMATION: Acute on chronic renal insufficiency. COMPARISON: None available. TECHNIQUE: Real-time imaging of the kidneys. FINDINGS: RIGHT KIDNEY: 8.2 x 3.7 x 4.0 cm (SAG x AP x TRV). The kidney is asymmetrically smaller with lobulated contour and areas of cortical scarring. No discrete calculi. No hydronephrosis. LEFT KIDNEY: 10.0 x 5.0 x 4.0 cm (SAG x AP x TRV). The kidney is normal in size, contour, and echogenicity. Renal cortical thickness is normal. 3 mm nonobstructing calcification possibly vascular in etiology. No hydronephrosis. Midpole cyst measures 5 x 5 x 6 mm. Midpole cyst measures 8 x 5 x 6 mm. No further imaging follow-up is needed. Trace perinephric fluid at the lower pole. OTHER: Right hepatic cyst measures 1.0 x 0.7 x 0.9 cm. The spleen appears heterogeneous. Medial to the spleen is a reniform structure measuring 5.1 x 3.0 x 4.0 cm. There is internal color Doppler flow. US/US renal BI IMPRESSION: Asymmetric atrophy of the right kidney with areas of cortical scarring. No hydronephrosis. Indeterminate reniform structure medial to the spleen measuring 5.1 x 3.0 x 4.0 cm. Further cross-sectional imaging correlation is needed.
--- NOTE | ~2024-02-06 | XR_ITS ---
EXAMINATION: XR CHEST CLINICAL INFORMATION: Dyspnea COMPARISON: Yesterday morning at 11:58 AM TECHNIQUE: Frontal view of the chest was obtained. FINDINGS: Platelike atelectasis is present at the left lung base, new compared with yesterday's study. No significant abnormality is noted involving the heart, lungs, mediastinum, bony thorax or soft tissues. XR/XR chest 1V IMPRESSION: New platelike atelectasis left lung base.
--- NOTE | 2024-02-06 02:55 | PC.NURSE ---
patient's daughter relays to this RN that she was seen yesterday at the [facility] walk in clinic and had labs done. Labs reviewed and BNP was elevated. Plan to repeat labs at this time
[2024-02-06 03:31] LABS: Hematocrit 29.9 % (37.0-47.0); Hemoglobin 9.5 g/dl (12.0-16.0); Mean Corpuscular HGB Conc 31.8 g/dl (31.0-35.0); Mean Corpuscular Hemoglobin 28.7 pg (27.0-33.0); Mean Corpuscular Volume 90.3 fL (80.0-98.0); Mean Platelet Volume 10.6 fL (9.4-12.3); Platelet Count 230 X10*3/uL (160-400); Red Blood Count 3.31 X10*6/uL (4.20-5.50); Red Cell Distribution Width 14.2 % (11.0-16.0); White Blood Count 10.5 X10*3/uL (4.8-10.8)
[2024-02-06 03:45] LABS: COVID-19 Test Negative (Negative); IDNOW Serial# 6674DD1D
[2024-02-06 03:46] LABS: IDNOW Serial# 152EDE1D; Influenza A Negative (Negative); Influenza B2 Negative (Negative)
[2024-02-06 03:49] LABS: Alanine Aminotransferase 10 U/L (0-31); Albumin Level 3.5 g/dL (3.5-5.0); Alkaline Phosphatase 91 U/L (39-117); Anion Gap 13 (12-20); Aspartate Amino Transferase 11 U/L (5-31); Bilirubin Total 0.3 mg/dL (0.0-1.0); Blood Urea Nitrogen 49 mg/dL (9-16); Calcium 9.6 mg/dL (8.4-10.2); Carbon Dioxide 22 mmol/L (22-29); Chloride 108 mmol/L (96-108); Creatinine Clr Calc Pharmacy 21.5; Estimated Glomerular Filt Rate 23; Glucose Random 317 mg/dL (60-115); Potassium 4.5 mmol/L (3.3-5.1); Sodium 138 mmol/L (135-145)
[2024-02-06 03:51] LABS: Troponin-I High Sensitivity 49.6 ng/L (<3.5-17.0)
[2024-02-06 03:52] LABS: B Type Natriuretic Peptide 250 pg/mL (<100)
[2024-02-06 03:52] LABS: Band Neutrophils Percent 2 % (3-5); Eosinophils Absolute Manual 0.2 X10*3/uL (0.0-0.4); Eosinophils Percent Manual 2 % (0-4); Lymphocytes Absolute Manual 1.5 X10*3/uL (1.2-4.9); Lymphocytes Percent Manual 14 % (20-40); Metamyelocytes Absolute 0.2 X10*3/uL; Metamyelocytes Percent 2 %; Monocytes Absolute Manual 2.5 X10*3/uL (0.1-1.2); Monocytes Percent Manual 24 % (2-11); Myelocytes Absolute 0.1 X10*/uL; Myelocytes Percent 1 %; Neutrophils Percent Manual 55 % (45-73)
[2024-02-06 03:53] LABS: Platelet Estimate NORMAL (NORMAL); Platelet Morphology Comment NORMAL; RBC Morphology NORMAL
--- NOTE | 2024-02-06 07:02 | ED_ITS ---
HPI - SOB/Dyspnea General Chief Complaint: Dyspnea Stated Complaint: Sob Time Seen by Provider: 02/06/24 06:58 Source: patient and old records reviewed Mode of arrival: ambulatory Limitations: no limitations History of Present Illness HPI Narrative: 73 yo female with PMH of gout, HTN, DM here with c/o worsening leg edema, orthopnea, wheezing, DIAS for 4 days. Came back from [facility] in November and daughter is trying to get her established here. No fevers, she is wheezing and coughing. The last few days have been worse than usual. Hx of wheezing but no formal dx MD elicited complaint: shortness of breath Onset (ago): day(s) (4) Context: occurred during exertion Timing: constant Severity: moderate Exacerbating factors: lying flat, exertion and coughing Relieving factors: rest and upright position Known history of: diabetes Associated symptoms: cough, wheezing, sputum production, orthopnea and other (leg edema) Treatment prior to arrival: none Related Data Home Medications ?Medication ?Instructions ?Recorded ?Confirmed Gliclazide 30 mg PO BID 02/06/24 02/06/24 acarbose 100 mg tablet 100 mg PO TIDAC 02/06/24 02/06/24 acetaminophen 500 mg tablet 500 mg PO DAILY PRN Pain 02/06/24 02/06/24 carvedilol 25 mg tablet 25 mg PO DAILY 02/06/24 02/06/24 fenofibrate 160 mg tablet 160 mg PO DAILY 02/06/24 02/06/24 insulin glargine 100 36 unit subcut QAM 02/06/24 02/06/24 unit-lixisenatide 33 mcg/mL subcutaneous pen (Soliqua 100/33) pravastatin 40 mg tablet 40 mg PO BEDTIME 02/06/24 02/06/24 Previous Rx's ?Medication ?Instructions ?Recorded amlodipine 5 mg-valsartan 160 mg 1 tab PO DAILY #90 tabs 02/05/24 tablet blood sugar diagnostic (FreeStyle #100 ea 02/05/24 Lite Strips) blood-glucose meter (FreeStyle #1 ea 02/05/24 Lite Meter kit) lancets 28 gauge (FreeStyle #100 ea 02/05/24 Lancets) metformin 850 mg tablet 850 mg PO BID #180 tabs 02/05/24 Allergies Allergy/AdvReac Type Severity Reaction Status Date / Time Penicillins [PENICILLINS] Allergy Unknown Rash Verified 02/06/24 02:24 Review of Systems 2 Review of Systems: Constitutional : No Fever, No Chills ENT/Mouth : No Hoarseness, No sore throat, No Rhinorrhea Eyes: No Redness, No Discharge, No Vision Changes Cardiovascular : No Chest Pain, positive SOB, positive Dyspnea on Exertion, pos Edema Respiratory : positive Cough, pos Sputum, positive Wheezing, Gastrointestinal : No Nausea, No Vomiting, No Diarrhea, No abdominal Pain Genitourinary : No Dysuria, No Hematuria Musculoskeletal : No joint pain, No Myalgias Skin : No rash Neuro : No Weakness, No Numbness, No Headache Psych : No anxiety, depression Heme/Lymph: No Bruising, No Bleeding Endocrine : No Polyuria, No Polydipsia All other systems reviewed and are negative FOR[facility]LY [facility], [facility] Past Medical History Attestation statement: The following information was validated with the patient. Source: old records reviewed Medical History Cataract Hypertension Gout Surgical History History of cholecystectomy H/O: hysterectomy Social History Social History Housing: Apartment Patient Tobacco Use Status: Never used Tobacco Current occupational status: retired Physical Exam 2 Vital Signs: Vital Signs: Last Vital Signs Temp 98.1 F 02/06/24 11:45 Pulse 74 02/06/24 11:45 Resp 22 H 02/06/24 11:45 BP 175/84 H 02/06/24 11:45 Pulse Ox 97 02/06/24 11:45 O2 Del Method Room Air 02/06/24 11:45 BMI result Body Mass Index 34.3 Appearance: Alert. Oriented X3. No acute distress. Eyes: Pupils equal, round and reactive to light. ENT: Pharynx normal. Neck: Normal inspection. Neck supple. CVS: Normal heart rate and rhythm. Pulses normal. Respiratory: No respiratory distress. Breath sounds diffuse exp wheezes, rales both bases Abdomen: Soft and nontender. Skin: Skin warm and dry. Normal skin color. Normal skin turgor. Extremities: 3+ pitting bilateral lower extremity edema. No calf ttp R 1st MTP redness ttp mild swelling pulses intact hx of gout Neuro: Oriented X 3. No motor deficit. No sensory deficit. Medications Administered Generic Name Dose Route Start Last Admin Trade Name Freq PRN Reason Stop Dose Admin Albuterol/Ipratropium 3 ml 02/06/24 12:00 02/06/24 11:35 Albuterol/Iprat 2.5/0.5mg 3 Ml Ampul.Neb INHALE 3 ml RQ4H WHILE AWAKE BURTON Administration Heparin Sodium (Porcine) 5,000 unit 02/06/24 15:00 02/06/24 14:02 Heparin Sodium,Porcine 5,000 Unit/Ml Vial SUBCUT 5,000 unit TID BURTON Administration Insulin Glargine 30 unit 02/06/24 12:00 02/06/24 14:01 Insulin Glargine,Hum.Rec.Anlog 100 Unit/Ml 10 Ml Vial SUBCUT 30 unit DAILY BURTON Administration Insulin Human Lispro 0 unit 02/06/24 11:30 02/06/24 13:09 Insulin Lispro 100 Unit/Ml 3 Ml Vial SUBCUT 8 unit QIDACHS BURTON Administration Protocol Patient Own ( 100 mg 02/06/24 11:30 02/06/24 14:19 Acarbose 100 Mg PO 100 mg Tablet) TIDAC BURTON Administration Discontinued Medications Generic Name Dose Route Start Last Admin Trade Name Freq PRN Reason Stop Dose Admin Albuterol/Ipratropium 3 ml 02/06/24 07:20 02/06/24 07:22 Albuterol/Iprat 2.5/0.5mg 3 Ml Ampul.Neb INHALE 02/06/24 07:21 3 ml ONCE ONE Administration Furosemide 40 mg 02/06/24 07:03 02/06/24 07:18 Furosemide 40 Mg/4 Ml Vial IVPUSH 02/06/24 07:04 40 mg STAT STA Administration Protocol Methylprednisolone Sodium Succinate 60 mg 02/06/24 08:15 02/06/24 08:44 Methylprednisolone Sod Succ 125 Mg/2 Ml Vial IVPUSH 02/06/24 08:16 60 mg ONCE ONE Administration Medical Decision Making Medical Decision Making [facility] Narrative: 73 yo female with PMH of gout, HTN, DM here with c/o orthopnea, leg edema, wheezing and DIAS at this time will obtain troponin x 2 has no chest pain, DVT study, CXR, BNP start on IV lasix given worsening renal function will see if it improves after some diuresis, neb protocol, planned admit given her edema and symptoms for likely ECHO and further diuresis. Differential Diagnosis Differential Diagnoses: The differential diagnosis associated with the presentation includes CHF, reactive airway disease Admission/Observation Consideration of admission/observation: Escalation of care including admission/observation considered admit for diuresis and ECHO Consult Healthcare Provider Management of the patient was discussed with: Hospitalist (will admit) Lab Data MDM Lab Attestation statement: I reviewed the patient's lab results. 02/06/24 03:19 02/06/24 03:19 Labs: Lab Results 02/06/24 02/06/24 02/06/24 Range/Units 03:18 03:19 06:52 WBC 10.5 (4.8-10.8) X10*3/uL RBC 3.31 L (4.20-5.50) X10*6/uL Hgb 9.5 L (12.0-16.0) g/dl Hct 29.9 L (37.0-47.0) % MCV 90.3 (80.0-98.0) fL MCH 28.7 (27.0-33.0) pg MCHC 31.8 (31.0-35.0) g/dl RDW 14.2 (11.0-16.0) % Plt Count 230 (160-400) X10*3/uL MPV 10.6 (9.4-12.3) fL Immature Gran % (Auto) Cancelled Neut % (Auto) Cancelled Lymph % (Auto) Cancelled Clare % (Auto) Cancelled Eos % (Auto) Cancelled Baso % (Auto) Cancelled Lymph # (Auto) Cancelled Clare # (Auto) Cancelled Eos # (Auto) Cancelled Baso # (Auto) Cancelled Abs Immat Gran (auto) Cancelled Absolute Neuts (auto) Cancelled Absolute Nucleated RBC 0.000 (0.0-0.012) X10*3/uL Nucleated RBC % (auto) 0.0 (0.0-0.2) /100WBC Neutrophils % (Manual) 55 (45-73) % Band Neutrophils % 2 L (3-5) % Lymphocytes % (Manual) 14 L (20-40) % Monocytes % (Manual) 24 H (2-11) % Eosinophils % (Manual) 2 (0-4) % Metamyelocytes % 2 % Myelocytes % 1 % Abs Neuts (Manual) 6.0 (2.0-8.3) X10*3/uL Lymphocytes # (Manual) 1.5 (1.2-4.9) X10*3/uL Monocytes # (Manual) 2.5 H (0.1-1.2) X10*3/uL Eosinophils # (Manual) 0.2 (0.0-0.4) X10*3/uL Metamyelocytes # 0.2 X10*3/uL Myelocytes # 0.1 X10*/uL Platelet Estimate NORMAL (NORMAL) Plt Morphology Comment NORMAL RBC Morphology NORMAL Sodium 138 (135-145) mmol/L Potassium 4.5 (3.3-5.1) mmol/L Chloride 108 (96-108) mmol/L Carbon Dioxide 22 (22-29) mmol/L Anion Gap 13 (12-20) BUN 49 H (9-16) mg/dL Creatinine 2.15 H (0.5-1.4) mg/dL Estim Creat Clear Calc 21.5 Estimated GFR 23 Random Glucose 317 H (60-115) mg/dL Estimat Average Glucose 266 mg/dL Hemoglobin A1c % 10.9 H (<6.0) % Calcium 9.6 (8.4-10.2) mg/dL Total Bilirubin 0.3 (0.0-1.0) mg/dL AST 11 (5-31) U/L ALT 10 (0-31) U/L Alkaline Phosphatase 91 (39-117) U/L Troponin I High Sens 49.6 H 56.8 H* (<3.5-17.0) ng/L B-Natriuretic Peptide 250 H (<100) pg/mL Total Protein 7.0 (6.5-8.0) g/dL Albumin 3.5 (3.5-5.0) g/dL COVID-19 (DINO) Negative (Negative) COVID-19 Clin Com See Note Influenza Type A (GUILLERMO) Negative (Negative) Influenza Type A (PCR) (Negative) Influenza Type B (GUILLERMO) Negative (Negative) Influenza Type B (PCR) (Negative) Influenza A & B Note See Note RSV RNA Qual (PCR) (Negative) SARS-CoV-2 RNA (RT-PCR) (Negative) 04/11/24 Range/Units 07:14 WBC (4.8-10.8) X10*3/uL RBC (4.20-5.50) X10*6/uL Hgb (12.0-16.0) g/dl Hct (37.0-47.0) % MCV (80.0-98.0) fL MCH (27.0-33.0) pg MCHC (31.0-35.0) g/dl RDW (11.0-16.0) % Plt Count (160-400) X10*3/uL MPV (9.4-12.3) fL Immature Gran % (Auto) Neut % (Auto) Lymph % (Auto) Clare % (Auto) Eos % (Auto) Baso % (Auto) Lymph # (Auto) Clare # (Auto) Eos # (Auto) Baso # (Auto) Abs Immat Gran (auto) Absolute Neuts (auto) Absolute Nucleated RBC (0.0-0.012) X10*3/uL Nucleated RBC % (auto) (0.0-0.2) /100WBC Neutrophils % (Manual) (45-73) % Band Neutrophils % (3-5) % Lymphocytes % (Manual) (20-40) % Monocytes % (Manual) (2-11) % Eosinophils % (Manual) (0-4) % Metamyelocytes % % Myelocytes % % Abs Neuts (Manual) (2.0-8.3) X10*3/uL Lymphocytes # (Manual) (1.2-4.9) X10*3/uL Monocytes # (Manual) (0.1-1.2) X10*3/uL Eosinophils # (Manual) (0.0-0.4) X10*3/uL Metamyelocytes # X10*3/uL Myelocytes # X10*/uL Platelet Estimate (NORMAL) Plt Morphology Comment RBC Morphology Sodium (135-145) mmol/L Potassium (3.3-5.1) mmol/L Chloride (96-108) mmol/L Carbon Dioxide (22-29) mmol/L Anion Gap (12-20) BUN (9-16) mg/dL Creatinine (0.5-1.4) mg/dL Estim Creat Clear Calc Estimated GFR Random Glucose (60-115) mg/dL Estimat Average Glucose mg/dL Hemoglobin A1c % (<6.0) % Calcium (8.4-10.2) mg/dL Total Bilirubin (0.0-1.0) mg/dL AST (5-31) U/L ALT (0-31) U/L Alkaline Phosphatase (39-117) U/L Troponin I High Sens (<3.5-17.0) ng/L B-Natriuretic Peptide (<100) pg/mL Total Protein (6.5-8.0) g/dL Albumin (3.5-5.0) g/dL COVID-19 (DINO) (Negative) COVID-19 Clin Com Influenza Type A (GUILLERMO) (Negative) Influenza Type A (PCR) NEGATIVE (Negative) Influenza Type B (GUILLERMO) (Negative) Influenza Type B (PCR) NEGATIVE (Negative) Influenza A & B Note RSV RNA Qual (PCR) NEGATIVE (Negative) SARS-CoV-2 RNA (RT-PCR) NEGATIVE (Negative) Independent Interpretation I performed an independent interpretation of an: EKG, Plain X-Ray (?effusion left lung) and Ultrasound (no DVT seen) Interpretation: Rate: 78 Rhythm: NSR [place]: normal Normal P waves. Normal GREGOR. Normal QRS complex. ST T wave : no KELI, inverted t waves I aVL, V6 qTC: 426 prior studies: no change The study has been interpreted contemporaneously by me. . Radiology Impression Discussion of test interpretation with radiology: I have reviewed the radiologist's reading. Independent Historian Clinical information obtained from an independent historian. History obtained from or confirmed by: Other (daughter) External Record Review External record reviewed: Inpatient record Critical Care Time Critical Care Time Critical Care Time: Yes Total Critical Care Time: 45 Attestation: repeat nebs, IV lasix, review of records, family discussion I attest to this time spent taking care of the patient Discharge Plan Discharge Clinical Impression: Increasing shortness of breath, Leg edema, Bilateral wheezing, Elevated troponin, Acute kidney injury superimposed on chronic kidney disease, Gout of big toe Patient Disposition: Admitted As Inpatient
[2024-02-06] MEDS: Furosemide 40 MG/4 ML VIAL IVPUSH (07:18)
[2024-02-06] MEDS: Albuterol/Iprat 2.5/0.5MG 3 ML AMPUL.NEB INHALE ×4 (07:22→19:47)
--- NOTE | 2024-02-06 07:24 | PC.NURSE ---
IV to right forearm, medicated per the DEC. respiratory at bedside with duoneb, call king within reach
[2024-02-06 07:26] LABS: Troponin-I High Sensitivity 56.8 ng/L (<3.5-17.0)
[2024-02-06 07:59] LABS: Influenza A PCR NEGATIVE (Negative); Influenza B PCR NEGATIVE (Negative); Resp Syncy Virus RNA Qual PCR NEGATIVE (Negative); SARS COV2 PCR INHOUSE NEGATIVE (Negative)
[2024-02-06] MEDS: methylPREDNISolone Sod Succ 125 MG/2 ML VIAL 60 MG IVPUSH (08:44)
--- NOTE | 2024-02-06 10:12 | PHA.MEDREC ---
Addendum entered by Boom Gonzalez RPh 02/06/24 10:21: Patient also takes gliclazide 60 mg bid that she filled in [place]. Dr. Owen was made aware that this is not available in the [place]. Original Note: Pharmacy Consult ? Medication Reconciliation Pharmacy has completed the medication reconciliation. Spoke to patient and daughter and confirmed medication list. Patient were seeing doctor and getting medications filled in [place]. She hasn't taken Jardiance in over a month.
--- NOTE | 2024-02-06 11:08 | PM.IMHP ---
History of Present Illness Date of Service: 02/06/24 Attending physician on admission: Shanda Owen Chief Complaint: chf ,ski on ckd 73 yo female with PMH of gout, HTN, DM here with c/o worsening leg edema, orthopnea, wheezing, DIAS for 4 days-Patient speaks limited Hebrew-patient history taken with the help of daughter. As per the daughter patient has on and off exertional dyspnea from months to year, she is following up with Dr. 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 As per daughter seems her dm uncontrolled . Denies any new complaint of chest pain or abdominal pain or fever or chills or nausea or vomiting or cough or weakness or numbness. in addition has right bid toe pain and swelling also . no fever labs imaging ekg reviewed : h/h : 9.5 /29.9 bun/cr : 49/2.15( baseline cr ? 1.2 -1.6 ) ekg nsr trops elevated : 49.6-56.8 (flat) now has glucosuria/ proteinuria also. cxr:New platelike atelectasis left lung base. venous duplex LE B/l: No DVT demonstrated in the bilateral lower extremity. Review of Systems Review of Systems: Yes all other systems are reviewed and are negative [facility] Medical History Cataract Hypertension Gout Surgical History History of cholecystectomy H/O: hysterectomy Social History Housing: Apartment Patient Tobacco Use Status: Never used Tobacco Current occupational status: retired Meds Allergies Allergy/AdvReac Type Severity Reaction Status Date / Time Penicillins [PENICILLINS] Allergy Unknown Rash Verified 02/06/24 02:24 Active Medications: Current Medications Albuterol/Ipratropium (Albuterol/Iprat 2.5/0.5mg 3 Ml Ampul.Neb) 3 ml INHALE RQ4H WHILE AWAKE BURTON Albuterol/Ipratropium (Albuterol/Iprat 2.5/0.5mg 3 Ml Ampul.Neb) 3 ml INHALE Q3H PRN PRN Reason: sob Carvedilol (Carvedilol 25 Mg Tablet) 25 mg PO DAILY BURTON; Protocol Fenofibrate (Fenofibrate 160 Mg Tablet) 160 mg PO DAILY BURTON Furosemide (Furosemide 40 Mg/4 Ml Vial) 40 mg IVPUSH DAILY BURTON; Protocol Glucose (Glucose Gel 15 Gm Gel..Gram.) 15 gm PO Q15M PRN; Protocol PRN Reason: per Hypoglycemia Standing Ord. Heparin Sodium (Porcine) (Heparin Sodium,Porcine 5,000 Unit/Ml Vial) 5,000 unit SUBCUT TID [facility] Dextrose (D10) 250 mls @ 750 mls/hr IV Q15M PRN; Protocol PRN Reason: per Hypoglycemia Standing Ord. Insulin Human Lispro (Insulin Lispro 100 Unit/Ml 3 Ml Vial) 0 unit SUBCUT QIDACHS [facility]; Protocol Non-Formulary Medication (Acarbose) 100 mg PO TIDAC [facility] Non-Formulary Medication (Insulin Glargine-Lixisenatide [Soliqua 100/33]) 36 unit SUBCUT QAM [facility] Non-Formulary Medication (Pitavastatin Calcium) 4 mg PO QPM [facility] Prednisone (Prednisone 20 Mg Tablet) 40 mg PO DAILY [facility] Sodium Chloride (0.9 % Sodium Chloride Flush 3 Ml Syringe) 3 ml IVFLUSH QSHIFT [facility] Home Medications ?Medication ?Instructions ?Recorded ?Confirmed ?Last Taken ?Type Gliclazide 30 mg PO BID 02/06/24 02/06/24 Unknown History acarbose 100 mg tablet 100 mg PO TIDAC 02/06/24 02/06/24 02/05/24 History acetaminophen 500 mg tablet 500 mg PO DAILY PRN Pain 02/06/24 02/06/24 Unknown History carvedilol 25 mg tablet 25 mg PO DAILY 02/06/24 02/06/24 02/05/24 History fenofibrate 160 mg tablet 160 mg PO DAILY 02/06/24 02/06/24 02/05/24 History insulin glargine 100 36 unit subcut QAM 02/06/24 02/06/24 02/05/24 History unit-lixisenatide 33 mcg/mL subcutaneous pen (Soliqua 100/33) pravastatin 40 mg tablet 40 mg PO BEDTIME 02/06/24 02/06/24 02/05/24 History Physical Exam Vital Signs and Narrative: Vital Signs: Last Vital Signs Temp 98.7 F 02/06/24 08:47 Pulse 70 02/06/24 08:47 Resp 22 H 02/06/24 08:47 BP 168/82 H 02/06/24 08:47 Pulse Ox 96 02/06/24 08:47 O2 Del Method Room Air 02/06/24 08:47 BMI result Body Mass Index 34.3 Appearance: Alert.? Oriented X3.? not in distress.? Eyes: Pupils equal, round and reactive to light.? Sclera nonicteric.? ENT: Pharynx normal.? Moist mucous membranes. cvs: rrr, [id number] , jvd equivocal. res: air entry fair , has few scattered cracles at bases. abd: no rebound or guarding ,nt, bs present. ext pulses present , no cyanosis ,b/l leg2+ edema. right big toe swelling/pain neuro: axo3 , nonfocal. Results Labs 02/06/24 03:19 02/06/24 03:19 Labs: Laboratory Results - last 24 hr 02/06/24 02/06/24 02/06/24 03:18 03:19 06:52 MCV 90.3 MCH 28.7 MCHC 31.8 RDW 14.2 Plt Count 230 MPV 10.6 Immature Gran % (Auto) Cancelled Neut % (Auto) Cancelled Lymph % (Auto) Cancelled [place] % (Auto) Cancelled Eos % (Auto) Cancelled Baso % (Auto) Cancelled Lymph # (Auto) Cancelled [place] # (Auto) Cancelled Eos # (Auto) Cancelled Baso # (Auto) Cancelled Abs Immat Gran (auto) Cancelled Absolute Neuts (auto) Cancelled Absolute Nucleated RBC 0.000 Nucleated RBC % (auto) 0.0 Neutrophils % (Manual) 55 Band Neutrophils % 2 L Lymphocytes % (Manual) 14 L Monocytes % (Manual) 24 H Eosinophils % (Manual) 2 Metamyelocytes % 2 Myelocytes % 1 Abs Neuts (Manual) 6.0 Lymphocytes # (Manual) 1.5 Monocytes # (Manual) 2.5 H Eosinophils # (Manual) 0.2 Metamyelocytes # 0.2 Myelocytes # 0.1 Platelet Estimate NORMAL Plt Morphology Comment NORMAL RBC Morphology NORMAL Anion Gap 13 Estim Creat Clear Calc 21.5 Estimated GFR 23 Random Glucose 317 H Calcium 9.6 Total Bilirubin 0.3 AST 11 ALT 10 Alkaline Phosphatase 91 Troponin I High Sens 49.6 H 56.8 H* B-Natriuretic Peptide 250 H Total Protein 7.0 Albumin 3.5 COVID-19 (DINO) Negative COVID-19 Clin Com See Note Influenza Type A (GUILLERMO) Negative Influenza Type A (PCR) Influenza Type B (GUILLERMO) Negative Influenza Type B (PCR) Influenza A & B Note See Note RSV RNA Qual (PCR) SARS-CoV-2 RNA (RT-PCR) 02/06/24 07:14 MCV MCH MCHC RDW Plt Count MPV Immature Gran % (Auto) Neut % (Auto) Lymph % (Auto) [place] % (Auto) Eos % (Auto) Baso % (Auto) Lymph # (Auto) [place] # (Auto) Eos # (Auto) Baso # (Auto) Abs Immat Gran (auto) Absolute Neuts (auto) Absolute Nucleated RBC Nucleated RBC % (auto) Neutrophils % (Manual) Band Neutrophils % Lymphocytes % (Manual) Monocytes % (Manual) Eosinophils % (Manual) Metamyelocytes % Myelocytes % Abs Neuts (Manual) Lymphocytes # (Manual) Monocytes # (Manual) Eosinophils # (Manual) Metamyelocytes # Myelocytes # Platelet Estimate Plt Morphology Comment RBC Morphology Anion Gap Estim Creat Clear Calc Estimated GFR Random Glucose Calcium Total Bilirubin AST ALT Alkaline Phosphatase Troponin I High Sens B-Natriuretic Peptide Total Protein Albumin COVID-19 (DINO) COVID-19 Clin Com Influenza Type A (GUILLERMO) Influenza Type A (PCR) NEGATIVE Influenza Type B (GUILLERMO) Influenza Type B (PCR) NEGATIVE Influenza A & B Note RSV RNA Qual (PCR) NEGATIVE SARS-CoV-2 RNA (RT-PCR) NEGATIVE Imaging Radiologist's Impressions: Impressions Venous Duplex 02/06/24 07:50 IMPRESSION: No DVT demonstrated in the bilateral lower extremity. Chest X-Ray 02/06/24 08:22 IMPRESSION: New platelike atelectasis left lung base. Assessment and Plan (1) Gout of big toe: Status: Acute (2) Acute kidney injury superimposed on chronic kidney disease: Status: Acute (3) Elevated troponin: Status: Acute (4) Leg edema: Status: Acute (5) 2+ pitting edema: Status: Acute Plan 73 yo female with PMH of gout, HTN, DM here with c/o worsening leg edema, orthopnea, wheezing, DIAS for 4 days Possible chf execerbation-etiology unclear vs renal related ( has significant proteinuria) has leg edema ,sob ,? on coreg and juardiance in [place] trop flat ,ekg seems nsr bnp elevated from baseline plan: echo daily weight , i/o monitering started on iv lasix ,added incentive spirometry,chest physio and nebd for atelecatsis. giuliano on ckd :(multfactorial -? dm/htn related proteinuria) urine protein/cr renal us nephro eval htn : continue coreg hold nathaniel/amlodipine -due to edema /giuliano. dm with hyperglycemia: add Hba1c continue lantus ,hols metformin had giuliano . hlp:continue statin. acute gout flare : added predisone . anemia normocytic : denies any current gross bleeding moniter cbc if h/h trending down ,may need further anemia workup obesity: encouraged to loose weight andcut down calories. dvt prophylax: s/c heparin. Above management discussed with the patient detail length her and her daughter in detail -both understand in agreement with the above plan, time spent 70 minute, patient full code. daughter's phone no:[phone]( name:Jerri). Quality Stroke Does the patient have a stroke diagnosis?: No VTE Prior VTE?: No VTE Risk Level:: Medical - moderate - high VTE Device Contraindication: N/A - Device Ordered VTE Drug Contraindication: N/A - Med Ordered
--- NOTE | 2024-02-06 11:25 | P.CONCA_ITS ---
History of Present Illness History of Present Illness Date of Service: 02/06/24 Chief complaint: CHF, giuliano on ckd Narrative: [age] year female with background history of hypertension and kidney disease presenting for shortness of breath and peripheral edema. Clinically was felt to be in heart failure and was started on IV diuretics. She is saying the lower extremity edema is improving and her breathing is little better. She still has very mild wheezing on examination. She does not have any history of lung disease. She does have uncontrolled hypertension. Blood pressure was elevated in the ER. She does not lay flat in bed. Denying any clear PND episodes. No chest pains. COUNTS INCLUDE 234 BEDS AT THE [facility] Past Medical History Medical History Cataract Hypertension Gout Surgical History Surgical History History of cholecystectomy H/O: hysterectomy Social History Social History Housing: Apartment Patient Tobacco Use Status: Never used Tobacco Current occupational status: retired Meds Allergies Allergy/AdvReac Type Severity Reaction Status Date / Time Penicillins [PENICILLINS] Allergy Unknown Rash Verified 02/06/24 02:24 Active Medications: Current Medications Albuterol/Ipratropium (Albuterol/Iprat 2.5/0.5mg 3 Ml Ampul.Neb) 3 ml INHALE RQ4H WHILE AWAKE [facility] Albuterol/Ipratropium (Albuterol/Iprat 2.5/0.5mg 3 Ml Ampul.Neb) 3 ml INHALE Q3H PRN PRN Reason: sob Carvedilol (Carvedilol 25 Mg Tablet) 25 mg PO DAILY [facility]; Protocol Fenofibrate (Fenofibrate 160 Mg Tablet) 160 mg PO DAILY [facility] Furosemide (Furosemide 40 Mg/4 Ml Vial) 40 mg IVPUSH DAILY [facility]; Protocol Glucose (Glucose Gel 15 Gm Gel..Gram.) 15 gm PO Q15M PRN; Protocol PRN Reason: per Hypoglycemia Standing Ord. Heparin Sodium (Porcine) (Heparin Sodium,Porcine 5,000 Unit/Ml Vial) 5,000 unit SUBCUT TID [facility] Dextrose (D10) 250 mls @ 750 mls/hr IV Q15M PRN; Protocol PRN Reason: per Hypoglycemia Standing Ord. Insulin Human Lispro (Insulin Lispro 100 Unit/Ml 3 Ml Vial) 0 unit SUBCUT QIDACHS [facility]; Protocol Non-Formulary Medication (Acarbose) 100 mg PO TIDAC [facility] Non-Formulary Medication (Pitavastatin Calcium) 4 mg PO QPM [facility] Non-Formulary Medication (Insulin Glargine-Lixisenatide [Soliqua 100/33]) 30 unit SUBCUT QAM [facility] Prednisone (Prednisone 20 Mg Tablet) 40 mg PO DAILY [facility] Sodium Chloride (0.9 % Sodium Chloride Flush 3 Ml Syringe) 3 ml IVFLUSH QSHIFT [facility] Home Medications ?Medication ?Instructions ?Recorded ?Confirmed ?Last Taken ?Type Gliclazide 30 mg PO BID 02/06/24 02/06/24 Unknown History acarbose 100 mg tablet 100 mg PO TIDAC 02/06/24 02/06/24 02/05/24 History acetaminophen 500 mg tablet 500 mg PO DAILY PRN Pain 02/06/24 02/06/24 Unknown History carvedilol 25 mg tablet 25 mg PO DAILY 02/06/24 02/06/24 02/05/24 History fenofibrate 160 mg tablet 160 mg PO DAILY 02/06/24 02/06/24 02/05/24 History insulin glargine 100 36 unit subcut QAM 02/06/24 02/06/24 02/05/24 History unit-lixisenatide 33 mcg/mL subcutaneous pen (Soliqua 100/33) pravastatin 40 mg tablet 40 mg PO BEDTIME 02/06/24 02/06/24 02/05/24 History Physical Exam 2 Vital Signs: Vital Signs: Last Vital Signs Temp 98.7 F 02/06/24 08:47 Pulse 70 02/06/24 08:47 Resp 22 H 02/06/24 08:47 BP 168/82 H 02/06/24 08:47 Pulse Ox 96 02/06/24 08:47 O2 Del Method Room Air 02/06/24 08:47 BMI result Body Mass Index 34.3 GENERAL APPEARANCE: in no acute distress, pleasant. NECK: no carotid bruit, no jugular venous distention. SKIN: no suspicious lesions, warm and dry. HEART: no murmurs, regular rate and rhythm. LUNGS: Mild end expiratory wheezes. ABDOMEN: soft, nontender. EXTREMITIES: no edema. PERIPHERAL PULSES: equal. NEUROLOGIC: No gross deficits, AAO X 3 Objective Labs and Meds 02/06/24 03:19 02/06/24 03:19 Lab results: Laboratory Results - last 24 hr 02/06/24 02/06/24 02/06/24 03:18 03:19 06:52 WBC 10.5 RBC 3.31 L Hgb 9.5 L Hct 29.9 L MCV 90.3 MCH 28.7 MCHC 31.8 RDW 14.2 Plt Count 230 MPV 10.6 Immature Gran % (Auto) Cancelled Neut % (Auto) Cancelled Lymph % (Auto) Cancelled Ingham % (Auto) Cancelled Eos % (Auto) Cancelled Baso % (Auto) Cancelled Lymph # (Auto) Cancelled [place] # (Auto) Cancelled Eos # (Auto) Cancelled Baso # (Auto) Cancelled Abs Immat Gran (auto) Cancelled Absolute Neuts (auto) Cancelled Absolute Nucleated RBC 0.000 Nucleated RBC % (auto) 0.0 Neutrophils % (Manual) 55 Band Neutrophils % 2 L Lymphocytes % (Manual) 14 L Monocytes % (Manual) 24 H Eosinophils % (Manual) 2 Metamyelocytes % 2 Myelocytes % 1 Abs Neuts (Manual) 6.0 Lymphocytes # (Manual) 1.5 Monocytes # (Manual) 2.5 H Eosinophils # (Manual) 0.2 Metamyelocytes # 0.2 Myelocytes # 0.1 Platelet Estimate NORMAL Plt Morphology Comment NORMAL RBC Morphology NORMAL Sodium 138 Potassium 4.5 Chloride 108 Carbon Dioxide 22 Anion Gap 13 BUN 49 H Creatinine 2.15 H Estim Creat Clear Calc 21.5 Estimated GFR 23 Random Glucose 317 H Calcium 9.6 Total Bilirubin 0.3 AST 11 ALT 10 Alkaline Phosphatase 91 Troponin I High Sens 49.6 H 56.8 H* B-Natriuretic Peptide 250 H Total Protein 7.0 Albumin 3.5 COVID-19 (DINO) Negative COVID-19 Clin Com See Note Influenza Type A (GUILLERMO) Negative Influenza Type A (PCR) Influenza Type B (GUILLERMO) Negative Influenza Type B (PCR) Influenza A & B Note See Note RSV RNA Qual (PCR) SARS-CoV-2 RNA (RT-PCR) 02/06/24 07:14 WBC RBC Hgb Hct MCV MCH MCHC RDW Plt Count MPV Immature Gran % (Auto) Neut % (Auto) Lymph % (Auto) Ing[place] % (Auto) Eos % (Auto) Baso % (Auto) Lymph # (Auto) [place] # (Auto) Eos # (Auto) Baso # (Auto) Abs Immat Gran (auto) Absolute Neuts (auto) Absolute Nucleated RBC Nucleated RBC % (auto) Neutrophils % (Manual) Band Neutrophils % Lymphocytes % (Manual) Monocytes % (Manual) Eosinophils % (Manual) Metamyelocytes % Myelocytes % Abs Neuts (Manual) Lymphocytes # (Manual) Monocytes # (Manual) Eosinophils # (Manual) Metamyelocytes # Myelocytes # Platelet Estimate Plt Morphology Comment RBC Morphology Sodium Potassium Chloride Carbon Dioxide Anion Gap BUN Creatinine Estim Creat Clear Calc Estimated GFR Random Glucose Calcium Total Bilirubin AST ALT Alkaline Phosphatase Troponin I High Sens B-Natriuretic Peptide Total Protein Albumin COVID-19 (DINO) COVID-19 Clin Com Influenza Type A (GUILLERMO) Influenza Type A (PCR) NEGATIVE Influenza Type B (GUILLERMO) Influenza Type B (PCR) NEGATIVE Influenza A & B Note RSV RNA Qual (PCR) NEGATIVE SARS-CoV-2 RNA (RT-PCR) NEGATIVE Imaging Radiologist's impression: Impressions Venous Duplex 02/06/24 07:50 IMPRESSION: No DVT demonstrated in the bilateral lower extremity. Chest X-Ray 02/06/24 08:22 IMPRESSION: New platelike atelectasis left lung base. Assessment and Plan (1) SOB (shortness of breath): Status: Acute Plan 73-year-old female presenting with shortness of breath and wheezing with peripheral edema and concern for congestive heart failure. Does not carry a diagnosis of heart failure before. Blood pressure is elevated. Agree with IV diuretics currently. Echocardiography. Resume amlodipine.. Mild troponin elevation-not ACS. Acute kidney injury- please monitor creatinine. We will follow along with you. Thank you for allowing me to participate in the care of your patient. Please feel free to contact me if you have any questions. Procedures Date of Service Date of Service: 02/06/24
[2024-02-06 11:52] LABS: Glucose, Whole Blood 273 mg/dL (60-115)
[2024-02-06 13:08] LABS: Glucose, Whole Blood 310 mg/dL (60-115)
[2024-02-06] MEDS: Insulin Lispro 100 UNIT/ML 3 ML VIAL SUBCUT ×4 (13:09→21:16)
[2024-02-06 13:48] LABS: Estimated Average Glucose 266 mg/dL; Hemoglobin A1c % 10.9 % (<6.0)
[2024-02-06] MEDS: Insulin Glargine,Hum.rec.anlog 100 UNIT/ML 10 ML VIAL 30 UNIT SUBCUT (14:01)
[2024-02-06] MEDS: Heparin Sodium,Porcine 5,000 UNIT/ML VIAL 5000 UNIT SUBCUT ×2 (14:02→20:22)
--- NOTE | 2024-02-06 14:18 | P.CONNP_ITS ---
History of Present Illness Reason for Consult Consult date: 02/11/24 Chief Complaint Chief complaint: CHF, danish on ckd History of Present Illness Narrative: 73 yo female with CKD gout, HTN, DM here with c/o worsening leg edema, orthopnea, wheezing, DIAS for 4 days-Patient speaks limited Uzbek-patient history taken with the help of daughter. 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 As per daughter seems her dm uncontrolled . Denies any new complaint of chest pain or abdominal pain or fever or chills or nausea or vomiting or cough or weakness or numbness. in addition has right bid toe pain and swelling also . no fever She has seen a intake worker back in [facility]. Review of Systems Constitutional: Denies fever(s) and Denies weight loss Cardiovascular: Denies chest pain Respiratory: Denies cough and Denies hemoptysis Gastrointestinal: Denies abdominal pain, Denies diarrhea and Denies nausea Musculoskeletal: Denies back pain Denies focal weakness PMFSH Past Medical History Medical History Cataract Hypertension Gout Surgical History Surgical History History of cholecystectomy H/O: hysterectomy Social History Social History Household Members: Family Housing: Apartment Do you presently have visiting nurse or other home services: No Comment: refusing bracelet and alarms Patient Tobacco Use Status: Never used Tobacco Second Hand Smoke Exposure: No service: No Current occupational status: retired Meds Allergies Allergy/AdvReac Type Severity Reaction Status Date / Time Penicillins [PENICILLINS] Allergy Unknown Rash Verified 02/06/24 02:24 Active Medications: Current Medications Albuterol/Ipratropium (Albuterol/Iprat 2.5/0.5mg 3 Ml Ampul.Neb) 3 ml INHALE RQ4H WHILE AWAKE [facility] Last Admin: 02/06/24 11:35 Dose: 3 ml Albuterol/Ipratropium (Albuterol/Iprat 2.5/0.5mg 3 Ml Ampul.Neb) 3 ml INHALE Q3H PRN PRN Reason: sob Carvedilol (Carvedilol 25 Mg Tablet) 25 mg PO DAILY [facility]; Protocol Fenofibrate (Fenofibrate 160 Mg Tablet) 160 mg PO BEDTIME [facility] Furosemide (Furosemide 40 Mg/4 Ml Vial) 40 mg IVPUSH DAILY [facility]; Protocol Glipizide (Glipizide 5 Mg Tablet) 2.5 mg PO BIDAC [facility] Glucose (Glucose Gel 15 Gm Gel..Gram.) 15 gm PO Q15M PRN; Protocol PRN Reason: per Hypoglycemia Standing Ord. Heparin Sodium (Porcine) (Heparin Sodium,Porcine 5,000 Unit/Ml Vial) 5,000 unit SUBCUT TID [facility] Last Admin: 02/06/24 14:02 Dose: 5,000 unit Dextrose (D10) 250 mls @ 750 mls/hr IV Q15M PRN; Protocol PRN Reason: per Hypoglycemia Standing Ord. Insulin Glargine (Insulin Glargine,Hum.Rec.Anlog 100 Unit/Ml 10 Ml Vial) 30 unit SUBCUT DAILY [facility] Last Admin: 02/06/24 14:01 Dose: 30 unit Insulin Human Lispro (Insulin Lispro 100 Unit/Ml 3 Ml Vial) 0 unit SUBCUT QIDACHS [facility]; Protocol Last Admin: 02/06/24 13:09 Dose: 8 unit Patient Own ( Acarbose 100 Mg Tablet) 100 mg PO TIDAC [facility] Pravastatin Sodium (Pravastatin Sodium 40 Mg Tablet) 40 mg PO BEDTIME [facility] Prednisone (Prednisone 20 Mg Tablet) 40 mg PO DAILY [facility] Sodium Chloride (0.9 % Sodium Chloride Flush 3 Ml Syringe) [address] [facility] Home Medications ?Medication ?Instructions ?Recorded ?Confirmed ?Last Taken ?Type Gliclazide 30 mg PO BID 02/06/24 02/06/24 Unknown History acarbose 100 mg tablet 100 mg PO TIDAC 02/06/24 02/06/24 02/05/24 History acetaminophen 500 mg tablet 500 mg PO DAILY PRN Pain 02/06/24 02/06/24 Unknown History carvedilol 25 mg tablet 25 mg PO DAILY 02/06/24 02/06/24 02/05/24 History fenofibrate 160 mg tablet 160 mg PO DAILY 04/09/2002/06/24 02/05/24 History insulin glargine 100 36 unit subcut QAM 02/06/24 02/06/24 02/05/24 History unit-lixisenatide 33 mcg/mL subcutaneous pen (Soliqua 100) pravastatin 40 mg tablet 40 mg PO BEDTIME 02/06/24 02/06/24 02/05/24 History Physical Exam Vital Signs: Last Vital Signs Temp 98.1 F 02/06/24 11:45 Pulse 74 02/06/24 11:45 Resp 22 H 02/06/24 11:45 BP 175/84 H 02/06/24 11:45 Pulse Ox 97 02/06/24 11:45 O2 Del Method Room Air 02/06/24 11:45 BMI result Body Mass Index 34.3 Const Nutritional Appearance: well nourished Orientation/consciousness: patient oriented x3 HEENT Head: No normal to inspection Mouth: moist mucous membranes Neck Neck: Yes supple and Yes no JVD Resp Auscultation: crackles Cardio Jugular venous distension: no JVD Palpation: no palpable S3 and no palpable S4 Heart sounds: no rubs GI Palpation (GI): Soft to palpation and nontender Percussion: No Fluid wave present General: Yes no CVA tenderness Back/Spine/Pelvis Back: no CVA tenderness Skin General skin exam: no rashes or lesions noted Neuro General: patient oriented x3 Extrem General: Yes no pedal edema and No clubbing Results Lab Results 02/07/24 05:59 02/11/24 07:54 Lab results: Chemistry 02/06/24 03:19 Sodium 138 Potassium 4.5 Carbon Dioxide 22 BUN 49 H Creatinine 2.15 H Calcium 9.6 Hematology 02/06/24 03:19 WBC 10.5 Hgb 9.5 L Plt Count 230 Assessment and Plan (1) Acute kidney injury superimposed on chronic kidney disease: Status: Acute Plan Elderly woman with acute kidney injury superimposed on chronic kidney disease in the setting of longstanding diabetes mellitus. She probably has underlying chronic kidney disease due to longstanding diabetes mellitus./diabetic kidney disease. I suspect she has a component of superimposed DANISH due to hypoperfusion. No reason to believe that she has any active obstruction or glomerulonephritis at this time. Urine still shows white cells. Check for eosinophils She is mild anemia this may be related to underlying chronic kidney disease. MCV is normal. Recommendations Check urine for sodium, protein, creatinine Optimize fluid status. Agree with IV Lasix and diurese her cautiously. Avoid hypotension. Continue to avoid nephrotoxic agents. Follow serum creatinine closely. She will follow along with the team Procedures Date of Service Date of Service: 02/11/24
[2024-02-06] MEDS: 0.9 % Sodium Chloride Flush 3 ML SYRINGE IVFLUSH (16:55)
[2024-02-06 17:14] LABS: Glucose, Whole Blood 474 mg/dL (60-115)
[2024-02-06] MEDS: glipiZIDE 5 MG TABLET 2.5 MG PO (17:28)
[2024-02-06] MEDS: carvediloL 25 MG TABLET PO (17:40)
[2024-02-06] MEDS: Empagliflozin 10 MG TABLET PO (18:32)
--- NOTE | 2024-02-06 19:42 | PC.NURSE ---
Ambulated to the bathroom , pt is limping on the right leh . She stated that she fell x 2 in the recent past and twisted right ankle . She stated that she was evaluated in the Urgent care for it
[2024-02-06] MEDS: Pravastatin Sodium 40 MG TABLET PO (20:22)
[2024-02-06 21:04] LABS: Glucose, Whole Blood 307 mg/dL (60-115)
[2024-02-07] VITALS (11 sets, daily range): BP systolic 125–146; BP diastolic 64–82; PULSE 67–76; RESP 16–20; TEMP 36.1–36.8; O2SAT 93–100
[2024-02-07] MEDS: 0.9 % Sodium Chloride Flush 3 ML SYRINGE IVFLUSH ×4 (00:51→20:28)
[2024-02-07 03:50] LABS: Glucose, Whole Blood 80 mg/dL (60-115)
[2024-02-07] MEDS: Albuterol/Iprat 2.5/0.5MG 3 ML AMPUL.NEB INHALE ×5 (04:03→19:02)
[2024-02-07 06:26] LABS: Hematocrit 27.8 % (37.0-47.0); Hemoglobin 9.1 g/dl (12.0-16.0); Mean Corpuscular HGB Conc 32.7 g/dl (31.0-35.0); Mean Corpuscular Hemoglobin 28.4 pg (27.0-33.0); Mean Corpuscular Volume 86.9 fL (80.0-98.0); Mean Platelet Volume 10.9 fL (9.4-12.3); Platelet Count 251 X10*3/uL (160-400); Red Cell Distribution Width 14.1 % (11.0-16.0); White Blood Count 11.5 X10*3/uL (4.8-10.8)
[2024-02-07 06:46] LABS: Anion Gap 15 (12-20); Blood Urea Nitrogen 65 mg/dL (9-16); Calcium 9.7 mg/dL (8.4-10.2); Carbon Dioxide 24 mmol/L (22-29); Chloride 104 mmol/L (96-108); Creatinine Clr Calc Pharmacy 19.1; Estimated Glomerular Filt Rate 20; Glucose Random 112 mg/dL (60-115); Potassium 4.5 mmol/L (3.3-5.1); Sodium 138 mmol/L (135-145)
--- NOTE | 2024-02-07 07:00 | CA_ITS ---
Transthoracic Echocardiogram Patient (Last, First, Middle): Enma Gaston Shia Gender: Female Date of : 1950 Age: 73 Procedure Date: 02/07/2024 Procedure Type: Transthoracic Echocardiogram [place] [facility] [place] Height: 149.86 cm Weight: 76.66 kg BSA: 1.72 m2 Heart Rate: 79 bpm BP: 135 / 64 mmHg Manager Sales Training: SB Referring MD: Shanda Owen MD Symptoms: chf Study Quality: Adequate ECG Rhythm: Sinus Conclusions: - Normal left ventricular cavity size. There is severely increased left ventricular wall thickness. The left ventricular systolic function is normal. The visually estimated ejection fraction is between 65-70%. - Elevated filling pressures. - Normal right ventricular cavity size and systolic function. - There is mild dilatation of the ascending aorta measuring 3.50 cm. Findings Procedure Information The quality of the study was technically difficult. The study quality is limited by patients body habitus. Left Ventricle Normal left ventricular cavity size. There is severely increased left ventricular wall thickness. The left ventricular systolic function is normal. The visually estimated ejection fraction is between 65-70%. There is no evidence of regional wall motion abnormalities. Abnormal diastolic function is noted. Spectral Doppler is indicative of an impaired relaxation filling pattern. Elevated filling pressures. Right Ventricle Normal right ventricular cavity size and systolic function. Atria The left atrium is normal in size. The right atrium is normal in size. Aortic Valve Normal aortic valve structure and function. There is no aortic valve stenosis. There is no aortic valve regurgitation. Mitral Valve The mitral valve appears normal. There is no mitral valve regurgitation. There is no mitral valve stenosis. Pulmonic Valve The pulmonic valve is likely normal. Tricuspid Valve Normal tricuspid valve structure. There is no tricuspid valve regurgitation. Tricuspid regurgitation envelope is inadequate for calculation of right ventricular systolic pressure. Normal right atrial pressure. Great Vessels There is mild dilatation of the ascending aorta measuring 3.50 cm. Venous The inferior vena cava is normal in size and collapses greater than 50% with inspiration. Pericardium/Pleural There is no evidence of pericardial effusion. Prior Study Comparison No prior study available for comparison. Measurements 2D Linear Measurements IVSd: 1.65 0.6-0.9/0.6-1.0 cm LVIDd: 4.64 3.9-5.3/4.2-5.9 cm LVIDd Index: 2.70 2.4-3.2/2.2-3.1 cm/m2 LVIDs: 2.78 2.0-3.6 cm LVPWd: 1.35 0.7-1.1 cm LA Diam: 4.10 2.7-3.8/3.0-4.0 cm LAIDs Index: 2.38 1.5-2.3 cm/m2 LV Mass: 359.89 67-162/88-224 g LV Mass Index: 209.24 43-95/49-115 g/m2 LVOT Diam: 2.00 3.0+(-)1.3 cm 2D Systolic Function EF 4C: 51.80 >55% EF 2C: 67.40 >55% EF BiP: 59.70 >55% Mitral Valve MV Pk E: 1.11 MV PK A: 1.29 MV Decel Time: 236.00 E/A: 0.90 E'Lateral: 2.83 E'Medial: 3.70 E/E' Med: 30.00 E/E' Lat: 39.20 PHT: 69.00 MVA PHT: 3.19 Decel [place]: 4.72 Aortic Valve AoV Pk Jared: 1.80 AoV Mn Jared: 1.35 AoV VTI: 0.40 AoV Pk Grad: 13.00 Aov Mn Grad: 8.00 CANELO Cont.VTI: 1.77 LVOT LVOT Pk Jared: 1.05 LVOT Mn Jared: 0.74 LVOT VTI: 0.22 LVOT Pk Grad: 4.00 LVOT Mn Grad: 3.00 LVOT Diam: 2.00 LVOT Area: 3.14 Diastolic Function MV Pk E: 1.11 MV Pk A: 1.29 E/A: 0.90 E'Medial: 3.70 E/E' Med: 30.00 E' Laterial: 2.83 E/E' Lat: 39.20 Right Ventricle TAPSE (mm): 19.10 TVS' Jared: 15.10 Tricuspid Valve RA Press: 3.00 Great Vessels Aorta Sinus of Valsalva: 2.80 2.0-3.5 cm Ao Asc: 3.50 2.1-3.4 cm Pulmonary Veins Pulm Vein S/D 2.10 Pulmonary Valve PV Pk Jared: 1.11 Peak PV Grad: 5.00 Updated in Other Vendor System with Status of Final Sergo Adorno MD electronically signed on 02/07/2024 4:16:21 PM with status of Final
[2024-02-07 08:09] LABS: Glucose, Whole Blood 124 mg/dL (60-115)
[2024-02-07] MEDS: Insulin Glargine,Hum.rec.anlog 100 UNIT/ML 10 ML VIAL 30 UNIT SUBCUT (09:07)
[2024-02-07] MEDS: cefTRIAXone sodium 1 GM in 0.9 % Sodium Chloride 50 ML IV (09:07)
[2024-02-07] MEDS: predniSONE 20 MG TABLET 40 MG PO (09:35)
[2024-02-07] MEDS: carvediloL 25 MG TABLET PO (09:37)
[2024-02-07] MEDS: Heparin Sodium,Porcine 5,000 UNIT/ML VIAL 5000 UNIT SUBCUT ×3 (09:37→20:25)
[2024-02-07] MEDS: Empagliflozin 10 MG TABLET PO (09:37)
--- NOTE | 2024-02-07 10:13 | MHC.CM.PN ---
Addendum entered by Fatmata Marsh 02/07/24 10:18: Discussed HCP with pt. but she wanted to wait to follow up when daughter is present. Original Note: IMM 02/07/24, left for dtr in room due to language barrier. Pt does speak some Belarusian. She is staying with her daughter, but lives in [facility]. She does not have a PCP here, she goes to Urgent Care for health issues. She does not have home health services, she uses a walker. Transportation home will be from her daughter. DC plan will be home with family. CM will follow and assist as needed with DC plan.
[2024-02-07 11:34] LABS: Glucose, Whole Blood 192 mg/dL (60-115)
--- NOTE | 2024-02-07 12:08 | PM.PNCARD ---
Subjective Subjective Date of Service: 02/07/24 Interval history: Seen examined at bedside. Saying that breathing is improving and lower extremity edema is better too. She has acute kidney injury on blood workup. Physical Exam Vital Signs: Last Vital Signs Temp 97.1 F 02/07/24 11:24 Pulse 70 02/07/24 11:24 Resp 20 02/07/24 11:24 BP 146/77 H 02/07/24 11:24 Pulse Ox 100 02/07/24 11:24 O2 Del Method Room Air 02/07/24 11:24 BMI result Body Mass Index 34.3 GENERAL APPEARANCE: in no acute distress, pleasant. NECK: no carotid bruit, no jugular venous distention. SKIN: no suspicious lesions, warm and dry. HEART: no murmurs, regular rate and rhythm. LUNGS: Mild end expiratory wheezes. ABDOMEN: soft, nontender. EXTREMITIES: no edema. PERIPHERAL PULSES: equal. NEUROLOGIC: No gross deficits, AAO X 3 Objective Labs and Meds 02/07/24 05:59 02/07/24 05:59 Lab results: Laboratory Results - last 24 hr 02/06/24 02/06/24 02/06/24 03:18 13:04 17:04 WBC RBC Hgb Hct MCV MCH MCHC RDW Plt Count MPV Absolute Nucleated RBC Nucleated RBC % (auto) Sodium Potassium Chloride Carbon Dioxide Anion Gap BUN Creatinine Estim Creat Clear Calc Estimated GFR POC Glucose 310 H 474 H* Random Glucose Estimat Average Glucose 266 Hemoglobin A1c % 10.9 H Calcium 02/06/24 02/07/24 02/07/24 21:01 03:45 05:59 WBC 11.5 H RBC 3.20 L Hgb 9.1 L Hct 27.8 L MCV 86.9 MCH 28.4 MCHC 32.7 RDW 14.1 Plt Count 251 MPV 10.9 Absolute Nucleated RBC 0.000 Nucleated RBC % (auto) 0.0 Sodium 138 Potassium 4.5 Chloride 104 Carbon Dioxide 24 Anion Gap 15 BUN 65 H Creatinine 2.41 H Estim Creat Clear Calc 19.1 Estimated GFR 20 POC Glucose 307 H 80 Random Glucose 112 Estimat Average Glucose Hemoglobin A1c % Calcium 9.7 02/07/24 02/07/24 08:05 11:27 WBC RBC Hgb Hct MCV MCH MCHC RDW Plt Count MPV Absolute Nucleated RBC Nucleated RBC % (auto) Sodium Potassium Chloride Carbon Dioxide Anion Gap BUN Creatinine Estim Creat Clear Calc Estimated GFR POC Glucose 124 H 192 H Random Glucose Estimat Average Glucose Hemoglobin A1c % Calcium Progress Note: A&P Assessment and plan (1) SOB (shortness of breath): Status: Acute (2) 2+ pitting edema: Status: Acute Plan 73-year-old female presenting with lower extremity edema and shortness of breath. Clinically was felt to be in heart failure and was diuresed. With diuretics kidney function has worsened. Diuresis on hold currently. On exam she does not have any JVD or peripheral edema. Blood pressure is okay and improving. Please resume her home dose of amlodipine. We will review echocardiography. Thank you for allowing me to participate in the care of your patient. Please feel free to contact me if you have any questions. Time Spent With Patient Time: Total time managing care of this patient today ____ minutes. Progress Note: Quality Stroke Does the patient have a stroke diagnosis?: No Procedures Date of Service Date of Service: 02/07/24
[2024-02-07] MEDS: Insulin Lispro 100 UNIT/ML 3 ML VIAL SUBCUT ×3 (12:35→20:26)
[2024-02-07 16:08] LABS: Glucose, Whole Blood 224 mg/dL (60-115)
--- NOTE | 2024-02-07 16:32 | P.PNIM_ITS ---
Subjective Subjective Date of Service: 02/07/24 Interval History: Seen and examined this morning Follow-up for shortness of breath, CHF Patient reports improvement in her breathing and leg swelling No shortness of breath Review of Systems Review of Systems: Yes all other systems are reviewed and are negative Constitutional Constitutional: Denies chills and Denies fever(s) Cardiovascular Cardiovascular: Denies chest pain, Denies palpitations, Denies dyspnea and Reports orthopnea Respiratory Respiratory: Denies dyspnea Endocrine Endocrine: Denies palpitations Physical Exam 2 Vital Signs: Vital Signs: Last Vital Signs Temp 96.9 F 02/07/24 16:00 Pulse 74 02/07/24 16:00 Resp 20 02/07/24 16:00 BP 145/67 H 02/07/24 16:00 Pulse Ox 96 02/07/24 16:00 O2 Del Method Room Air 02/07/24 16:00 BMI result Body Mass Index 34.3 Const: General: cooperative, comfortable, no acute distress, alert and awake Nutritional Appearance: overweight Orientation/consciousness: patient oriented x3 Resp: Other: no crackles, few scattered wheezes otherwise clear Effort & Inspection: normal respiratory effort, able to speak in complete sentences, no respiratory distress and no use of accessory muscles Cardio: Jugular venous distension: no JVD Rate: regular rate GI: Inspection: No distended Palpation (GI): Soft to palpation and nontender Neuro: General: patient oriented x3, moves all extremities and CN's II-XI intact bilaterally Extrem: General: Yes no pedal edema Objective Data Active Medications Albuterol/Ipratropium (Albuterol/Iprat 2.5/0.5mg 3 Ml Ampul.Neb) 3 ml INHALE RQ4H WHILE AWAKE [facility] Last Admin: 02/07/24 15:26 Dose: 3 ml Documented By: TAHIR Albuterol/Ipratropium (Albuterol/Iprat 2.5/0.5mg 3 Ml Ampul.Neb) 3 ml INHALE Q3H PRN PRN Reason: sob Last Admin: 02/07/24 04:03 Dose: 3 ml Documented By: SAMIR Carvedilol (Carvedilol 25 Mg Tablet) 25 mg PO DAILY [facility]; Protocol Last Admin: 02/07/24 09:37 Dose: 25 mg Documented By: HO.GOODMA Empagliflozin (Empagliflozin 10 Mg Tablet) 10 mg PO DAILY [facility] Last Admin: 02/07/24 09:37 Dose: 10 mg Documented By: RAVI Fenofibrate (Fenofibrate 160 Mg Tablet) 160 mg PO BEDTIME [facility] Furosemide (Furosemide 40 Mg/4 Ml Vial) 40 mg IVPUSH DAILY [facility]; Protocol Glipizide (Glipizide 5 Mg Tablet) 2.5 mg PO BIDAC [facility] Last Admin: 02/07/24 07:38 Dose: Not Given Documented By: RAVI Non-Admin Reason: held per Glucose (Glucose Gel 15 Gm Gel..Gram.) 15 gm PO Q15M PRN; Protocol PRN Reason: per Hypoglycemia Standing Ord. Heparin Sodium (Porcine) (Heparin Sodium,Porcine 5,000 Unit/Ml Vial) 5,000 unit SUBCUT TID [facility] Last Admin: 02/07/24 09:37 Dose: 5,000 unit Documented By: RAVI Dextrose (D10) 250 mls @ 750 mls/hr IV Q15M PRN; Protocol PRN Reason: per Hypoglycemia Standing Ord. Ceftriaxone Sodium 1 gm/ (Sodium Chloride) 50 mls @ 100 mls/hr IV Q24H [facility] Last Infusion: 02/07/24 09:40 Dose: Infused Documented By: RAVI Insulin Glargine (Insulin Glargine,Hum.Rec.Anlog 100 Unit/Ml 10 Ml Vial) 30 unit SUBCUT DAILY [facility] Last Admin: 02/07/24 09:07 Dose: 30 unit Documented By: RAVI Insulin Human Lispro (Insulin Lispro 100 Unit/Ml 3 Ml Vial) 0 unit SUBCUT QIDACHS [facility]; Protocol Last Admin: 02/07/24 12:35 Dose: 2 unit Documented By: RAVI Patient Own ( Acarbose 100 Mg Tablet) 100 mg PO TIDAC [facility] Last Admin: 02/06/24 17:41 Dose: Not Given Documented By: LOYDA Non-Admin Reason: Physician Held Med Pravastatin Sodium (Pravastatin Sodium 40 Mg Tablet) 40 mg PO BEDTIME [facility] Last Admin: 02/06/24 20:22 Dose: 40 mg Documented By: LOYDA Prednisone (Prednisone 20 Mg Tablet) 40 mg PO DAILY [facility] Last Admin: 02/07/24 09:35 Dose: 40 mg Documented By: RAVI Sodium Chloride (0.9 % Sodium Chloride Flush 3 Ml Syringe) 3 ml IVFLUSH QSHIFT [facility] Last Admin: 02/07/24 09:08 Dose: 3 ml Documented By: RAVI Labs 02/07/24 05:59 02/07/24 05:59 Labs: Laboratory Results - last 24 hr 02/06/24 02/06/24 02/07/24 17:04 21:01 03:45 MCV MCH MCHC RDW Plt Count MPV Absolute Nucleated RBC Nucleated RBC % (auto) Anion Gap Estim Creat Clear Calc Estimated GFR POC Glucose 474 H* 307 H 80 Random Glucose Calcium 02/07/24 02/07/24 02/07/24 05:59 08:05 11:27 MCV 86.9 MCH 28.4 MCHC 32.7 RDW 14.1 Plt Count 251 MPV 10.9 Absolute Nucleated RBC 0.000 Nucleated RBC % (auto) 0.0 Anion Gap 15 Estim Creat Clear Calc 19.1 Estimated GFR 20 POC Glucose 124 H 192 H Random Glucose 112 Calcium 9.7 02/07/24 16:04 MCV MCH MCHC RDW Plt Count MPV Absolute Nucleated RBC Nucleated RBC % (auto) Anion Gap Estim Creat Clear Calc Estimated GFR POC Glucose 224 H Random Glucose Calcium Assessment and Plan (1) UTI (urinary tract infection): Status: Acute (2) Acute kidney injury superimposed on chronic kidney disease: Status: Acute Plan 73 yo female with PMH of gout, HTN, DM here with c/o worsening leg edema, orthopnea, wheezing, DIAS for 4 days Dyspnea may be multifactorial; possible component of CHF leg edema and breathing improved with lasix seen by cardiology, echo pending hold lasix for increase in renal function RPP pending continue prn breathing treatments for now UTI ucx growing GNR - started on ceftriaxone follow final culture results giuliano on ckd creatinine up today, will hold lasix nephro following, urine studies ordered and pending follow renal function htn continue coreg resume norvasc hold valsartan due to giuliano acute gout flare of right great toe continue prednisone dm with hyperglycemia: Hba1c 10.9 continue lantus, jardiance hold metformin, acarbose is NF SSI, POCs hld ontinue statin, lofibra anemia normocytic : denies any current gross bleeding h/h stable obesity: encouraged to loose weight and cut down calories. dvt prophylax: s/c heparin. attending - dr. brandt Requires ongoing inpatient stay for further workup regarding dyspnea including possible CHF requiring specialist evaluation. daughter's phone no:[phone]( name:Jerri). Quality Stroke Does the patient have a stroke diagnosis?: No VTE Prior VTE?: No VTE Risk Level:: Medical - moderate - high VTE Device Contraindication: N/A - Device Ordered VTE Drug Contraindication: N/A - Med Ordered
[2024-02-07 18:14] LABS: Creatinine Urine 24.94 mg/dL; Protein/Creatinine Ratio, Ur 5.85 (<0.2); Total Protein Urine Random 146 mg/dL (<12)
--- NOTE | 2024-02-07 18:58 | P.PNNP_ITS ---
Subjective Subjective Date of Service: 02/07/24 Interval history: Seen and examined this morning. Events noted; All recent data reviewed Physical Exam 2 Vital Signs: Vital Signs: Last Vital Signs Temp 96.9 F 02/07/24 16:00 Pulse 74 02/07/24 16:00 Resp 20 02/07/24 16:00 BP 145/67 H 02/07/24 16:00 Pulse Ox 96 02/07/24 16:00 O2 Del Method Room Air 02/07/24 16:00 BMI result Body Mass Index 34.3 Const: General: comfortable and no acute distress O rientation/consciousness: patient oriented x3 HEENT: Head: Yes normocephalic Mouth: Normal oral and palatal mucosa present Eyes: EOM: EOMs intact bilaterally Neck: Neck: Yes supple Resp: Auscultation: clear to auscultation bilaterally Cardio: Jugular venous distension: no JVD Rate: regular rate GI: Palpation (GI): Soft to palpation Auscultation: normal bowel sounds : General: Yes no CVA tenderness Back/Spine/Pelvis: Back: no CVA tenderness Skin: General skin exam: no rashes or lesions noted Neuro: General: patient oriented x3 and moves all extremities Objective Data Labs 02/07/24 05:59 02/07/24 05:59 Labs: Laboratory Results - last 24 hr 02/06/24 02/07/24 02/07/24 21:01 03:45 05:59 WBC 11.5 H RBC 3.20 L Hgb 9.1 L Hct 27.8 L MCV 86.9 MCH 28.4 MCHC 32.7 RDW 14.1 Plt Count 251 MPV 10.9 Absolute Nucleated RBC 0.000 Nucleated RBC % (auto) 0.0 Sodium 138 Potassium 4.5 Chloride 104 Carbon Dioxide 24 Anion Gap 15 BUN 65 H Creatinine 2.41 H Estim Creat Clear Calc 19.1 Estimated GFR 20 POC Glucose 307 H 80 Random Glucose 112 Calcium 9.7 U Random Total Protein Ur Random Sodium Urine Creatinine Protein/Creatinin Ratio 02/07/24 02/07/24 02/07/24 08:05 11:27 16:04 WBC RBC Hgb Hct MCV MCH MCHC RDW Plt Count MPV Absolute Nucleated RBC Nucleated RBC % (auto) Sodium Potassium Chloride Carbon Dioxide Anion Gap BUN Creatinine Estim Creat Clear Calc Estimated GFR POC Glucose 124 H 192 H 224 H Random Glucose Calcium U Random Total Protein Ur Random Sodium Urine Creatinine Protein/Creatinin Ratio 02/07/24 17:08 WBC RBC Hgb Hct MCV MCH MCHC RDW Plt Count MPV Absolute Nucleated RBC Nucleated RBC % (auto) Sodium Potassium Chloride Carbon Dioxide Anion Gap BUN Creatinine Estim Creat Clear Calc Estimated GFR POC Glucose Random Glucose Calcium U Random Total Protein 146 H Ur Random Sodium 53.0 Urine Creatinine 24.94 Protein/Creatinin Ratio 5.85 H Procedures Date of Service Date of Service: 02/07/24 Assessment & Plan Assessment and plan (1) Acute kidney injury superimposed on chronic kidney disease: Status: Acute Plan DANISH on CKD due to tubular injury 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
[2024-02-07 20:24] LABS: Glucose, Whole Blood 214 mg/dL (60-115)
[2024-02-07] MEDS: Fenofibrate 160 MG TABLET PO (20:26)
[2024-02-07] MEDS: Pravastatin Sodium 40 MG TABLET PO (20:26)
[2024-02-08] VITALS (12 sets, daily range): BP systolic 135–176; BP diastolic 66–87; PULSE 63–119; RESP 16–20; TEMP 36–36.8; O2SAT 93–98
--- NOTE | 2024-02-08 07:16 | P.PNIM_ITS ---
Subjective Subjective Date of Service: 02/08/24 Interval History: Seen and examined this morning Follow-up for shortness of breath, bronchitis, ?CHF, giuliano Patient reports improvement in her breathing and leg swelling. Still with productive cough No shortness of breath Creat continue climbing- 2.70 today Review of Systems Review of Systems: Yes all other systems are reviewed and are negative Constitutional Constitutional: Denies chills and Denies fever(s) Cardiovascular Cardiovascular: Denies chest pain, Denies palpitations, Denies dyspnea and Reports orthopnea Respiratory Respiratory: Denies dyspnea Endocrine Endocrine: Denies palpitations Physical Exam 2 Vital Signs: Vital Signs: Last Vital Signs Temp 98.2 F 02/08/24 04:00 Pulse 68 02/08/24 04:00 Resp 16 02/08/24 04:00 BP 149/85 H 02/08/24 04:00 Pulse Ox 96 02/08/24 04:00 O2 Del Method Room Air 02/08/24 04:00 BMI result Body Mass Index 34.3 Constitutional - Awake and Alert, No apparent distress Eyes - PERRLA, EOMI Cardiovascular - S1S2, RRR, No edema Respiratory - Normal lung expansion, Normal respiratory effort, No respiratory distress, diffuse expiratory wheezing Gastrointestinal - NT / ND; +BS; No rebound or guarding Extremities - no calf tenderness bilaterally, no swelling Skin - Warm/Dry Neurological - Alert & oriented x3 Psychological - Appropriate affect Objective Data Active Medications Albuterol/Ipratropium (Albuterol/Iprat 2.5/0.5mg 3 Ml Ampul.Neb) 3 ml INHALE RQ4H WHILE AWAKE [facility] Last Admin: 02/07/24 19:02 Dose: 3 ml Documented By: CHRISTOPHER Albuterol/Ipratropium (Albuterol/Iprat 2.5/0.5mg 3 Ml Ampul.Neb) 3 ml INHALE Q3H PRN PRN Reason: sob Last Admin: 02/07/24 04:03 Dose: 3 ml Documented By: SAMIR Amlodipine Besylate (Amlodipine Besylate 5 Mg Tablet) 5 mg PO DAILY [facility]; Protocol Carvedilol (Carvedilol 25 Mg Tablet) 25 mg PO DAILY [facility]; Protocol Last Admin: 02/07/24 09:37 Dose: 25 mg Documented By: RAVI Empagliflozin (Empagliflozin 10 Mg Tablet) 10 mg PO DAILY [facility] Last Admin: 02/07/24 09:37 Dose: 10 mg Documented By: RAVI Fenofibrate (Fenofibrate 160 Mg Tablet) 160 mg PO BEDTIME [facility] Last Admin: 02/07/24 20:26 Dose: 160 mg Documented By: TAPAN Glucose (Glucose Gel 15 Gm Gel..Gram.) 15 gm PO Q15M PRN; Protocol PRN Reason: per Hypoglycemia Standing Ord. Heparin Sodium (Porcine) (Heparin Sodium,Porcine 5,000 Unit/Ml Vial) 5,000 unit SUBCUT TID [facility] Last Admin: 02/07/24 20:25 Dose: 5,000 unit Documented By: TAPAN Dextrose (D10) 250 mls @ 750 mls/hr IV Q15M PRN; Protocol PRN Reason: per Hypoglycemia Standing Ord. Ceftriaxone Sodium 1 gm/ (Sodium Chloride) 50 mls @ 100 mls/hr IV Q24H [facility] Last Infusion: 02/07/24 09:40 Dose: Infused Documented By: RAVI Insulin Glargine (Insulin Glargine,Hum.Rec.Anlog 100 Unit/Ml 10 Ml Vial) 30 unit SUBCUT DAILY [facility] Last Admin: 02/07/24 09:07 Dose: 30 unit Documented By: RAVI Insulin Human Lispro (Insulin Lispro 100 Unit/Ml 3 Ml Vial) 0 unit SUBCUT QIDACHS [facility]; Protocol Last Admin: 02/07/24 20:26 Dose: 4 unit Documented By: TAPAN Pravastatin Sodium (Pravastatin Sodium 40 Mg Tablet) 40 mg PO BEDTIME [facility] Last Admin: 02/07/24 20:26 Dose: 40 mg Documented By: TAPAN Prednisone (Prednisone 20 Mg Tablet) 40 mg PO DAILY [facility] Last Admin: 02/07/24 09:35 Dose: 40 mg Documented By: RAVI Sodium Chloride (0.9 % Sodium Chloride Flush 3 Ml Syringe) 3 ml IVFLUSH QSHIFT [facility] Last Admin: 02/07/24 20:28 Dose: 3 ml Documented By: TAPAN Labs 02/07/24 05:59 02/08/24 06:16 Labs: Laboratory Results - last 24 hr 02/07/24 02/07/24 02/07/24 08:05 11:27 16:04 Hold Purple Top POC Glucose 124 H 192 H 224 H U Random Total Protein Ur Random Sodium Urine Creatinine Protein/Creatinin Ratio 02/07/24 02/07/24 02/08/24 17:08 20:20 06:16 Hold Purple Top SEE NOTE POC Glucose 214 H U Random Total Protein 146 H Ur Random Sodium 53.0 Urine Creatinine 24.94 Protein/Creatinin Ratio 5.85 H Assessment and Plan (1) UTI (urinary tract infection): Status: Acute (2) Acute kidney injury superimposed on chronic kidney disease: Status: Acute Plan 73 yo female with PMH of gout, HTN, DM here with c/o worsening leg edema, orthopnea, wheezing, DIAS for 4 days Dyspnea may be multifactorial; possible component of CHF and acute bronchitis leg edema and breathing improved with lasix. Hold on further diuretics due to giuliano, clinically euvolemic at this time seen by cardiology, echo shows LVH, ef 65-70% diastoluc dysfunction RPP positive for human meetopneumovir- droplet/contact precautions duonebs UTI ucx growing ecoli on prelim report - continue ceftriaxone (initiated 02/06) follow final culture results giuliano on ckd creatinine up today, continue holding diuretics nephro following, significant proteinura, likely ATN add gentle ivf follow renal function acute Hyperkalemia due to above gentle IVF, lokelma 10mg x1 htn increase coreg to BID dosing. Imdur added by cards due to LVH resume norvasc (monitor for worsening edema) hold valsartan due to giuliano acute gout flare of right great toe continue prednisone dm with hyperglycemia: Hba1c 10.9 continue lantus, jardiance hold metformin, acarbose is NF SSI, POCs hld ontinue statin, lofibra chronic anemia normocytic : denies any current gross bleeding h/h stable obesity: encouraged to loose weight and cut down calories. dvt prophylax: s/c heparin. full code Requires ongoing inpatient stay for further workup regarding dyspnea including possible CHF, worsening giuliano requiring specialist evaluation. daughter's phone no:[phone]( name:Jerri). Quality Stroke Does the patient have a stroke diagnosis?: No VTE Prior VTE?: No VTE Risk Level:: Medical - moderate - high VTE Device Contraindication: N/A - Device Ordered VTE Drug Contraindication: N/A - Med Ordered
[2024-02-08 07:36] LABS: Anion Gap 16 (12-20); Blood Urea Nitrogen 65 mg/dL (9-16); Calcium 10.3 mg/dL (8.4-10.2); Carbon Dioxide 22 mmol/L (22-29); Chloride 105 mmol/L (96-108); Creatinine Clr Calc Pharmacy 17.1; Estimated Glomerular Filt Rate 17; Glucose Random 234 mg/dL (60-115); Potassium 5.3 mmol/L (3.3-5.1); Sodium 138 mmol/L (135-145)
[2024-02-08 07:46] LABS: Glucose, Whole Blood 209 mg/dL (60-115)
[2024-02-08] MEDS: Albuterol/Iprat 2.5/0.5MG 3 ML AMPUL.NEB INHALE ×4 (08:09→18:54)
[2024-02-08] MEDS: Heparin Sodium,Porcine 5,000 UNIT/ML VIAL 5000 UNIT SUBCUT ×3 (08:22→20:54)
[2024-02-08] MEDS: Insulin Lispro 100 UNIT/ML 3 ML VIAL SUBCUT ×4 (08:22→20:55)
[2024-02-08] MEDS: carvediloL 25 MG TABLET PO ×2 (08:23→20:55)
[2024-02-08] MEDS: amLODIPine Besylate 5 MG TABLET PO (08:23)
[2024-02-08] MEDS: predniSONE 20 MG TABLET 40 MG PO (08:23)
[2024-02-08] MEDS: Empagliflozin 10 MG TABLET PO (08:23)
[2024-02-08] MEDS: Insulin Glargine,Hum.rec.anlog 100 UNIT/ML 10 ML VIAL 30 UNIT SUBCUT (08:23)
[2024-02-08] MEDS: cefTRIAXone sodium 1 GM in 0.9 % Sodium Chloride 50 ML IV (08:24)
[2024-02-08] MEDS: 0.9 % Sodium Chloride Flush 3 ML SYRINGE IVFLUSH ×2 (08:28→16:57)
[2024-02-08 08:34] LABS: HBc Num1 2.42 S/CO (0.00-0.79); HBsAGNum1 0.23 S/CO (0.00-0.99); Hepatitis A Antibody IgM 0.25 Index (0-0.79); Hepatitis B Surface Antigen Negative (Negative); ~HepC Num1 0.16 S/CO (0.00-0.79); ~Hepatitis A Antibody IgM Nonreactive (Nonreactive); ~Hepatitis B Surface Antibody NONREACTIVE (Nonreactive); ~Hepatitis C Antibody Nonreactive (Nonreactive)
[2024-02-08 09:21] LABS: Adenovirus PCR Not Detected (Not Detect.); Bordetella parapertussis PCR Not Detected (Not Detect.); Bordetella pertussis PCR Not Detected (Not Detect.); Chlamydia pneumoniae PCR Not Detected (Not Detect.); Coronavirus 229E PCR Not Detected (Not Detect.); Coronavirus HKU1 PCR Not Detected (Not Detect.); Coronavirus NL63 PCR Not Detected (Not Detect.); Coronavirus OC43 PCR Not Detected (Not Detect.); Human metapneumovirus PCR Detected (Not Detect.); Influenza A PCR Not Detected (Not Detect.); Influenza B PCR Not Detected (Not Detect.); Mycoplasma pneumoniae PCR Not Detected (Not Detect.); Parainfluenza 1 PCR Not Detected (Not Detect.); Parainfluenza 2 PCR Not Detected (Not Detect.); Parainfluenza 3 PCR Not Detected (Not Detect.); Parainfluenza 4 PCR Not Detected (Not Detect.); RSV PCR Not Detected (Not Detect.); Rhino/Enterovirus PCR Not Detected (Not Detect.)
[2024-02-08 09:32] LABS: SARS-CoV-2 PCR Not Detected (Not Detect.)
[2024-02-08 09:33] LABS: HBc Num2 2.63 S/CO; HBc Num3 2.45 S/CO; Hepatitis B Core Antibody Reactive (Nonreactive)
[2024-02-08 10:41] LABS: EOS Counted 2 CELLS; EOS QC POS YES; WBC, Counted 100 CELLS
[2024-02-08 10:42] LABS: EOS Stain Quality OK YES
[2024-02-08 11:41] LABS: Glucose, Whole Blood 180 mg/dL (60-115)
[2024-02-08] MEDS: 0.9 % Sodium Chloride 1,000 ML 100 ML IVCONT ×2 (12:05→20:54)
--- NOTE | 2024-02-08 13:09 | PM.PNCARD ---
Subjective Subjective Date of Service: 02/08/24 Interval history: Seen examined at bedside. Feeling good. She is getting some IV fluids because kidney function has worsened to 2.7. She is also on prednisone for the reactive airway. Physical Exam Vital Signs: Last Vital Signs Temp 98 F 02/08/24 11:58 Pulse 69 02/08/24 11:58 Resp 16 02/08/24 11:58 BP 176/85 H 02/08/24 11:58 Pulse Ox 96 02/08/24 11:58 O2 Del Method Room Air 02/08/24 11:58 BMI result Body Mass Index 34.3 GENERAL APPEARANCE: in no acute distress, pleasant. NECK: no carotid bruit, no jugular venous distention. SKIN: no suspicious lesions, warm and dry. HEART: no murmurs, regular rate and rhythm. LUNGS: Mild end expiratory wheezes. ABDOMEN: soft, nontender. EXTREMITIES: no edema. PERIPHERAL PULSES: equal. NEUROLOGIC: No gross deficits, AAO X 3 Objective Labs and Meds 02/07/24 05:59 02/08/24 06:16 Lab results: Laboratory Results - last 24 hr 02/07/24 02/07/24 02/07/24 16:04 17:08 20:20 Hold Purple Top Sodium Potassium Chloride Carbon Dioxide Anion Gap BUN Creatinine Estim Creat Clear Calc Estimated GFR POC Glucose 224 H 214 H Random Glucose Calcium Urine Eosinophils % 2.0 U Random Total Protein 146 H Ur Random Sodium 53.0 Urine Creatinine 24.94 Protein/Creatinin Ratio 5.85 H Respiratory Panel [facility] See Note Adenovirus (Rapid PCR) Not Detected B.pert (TEM-PCR) Not Detected B.parapertussis DNA PCR Not Detected C. pneumoniae DNA (PCR) Not Detected Coronavirus OC43 (PCR) Not Detected Coronavirus HKU1 (PCR) Not Detected Coronavirus 229E (PCR) Not Detected Coronavirus NL63 (PCR) Not Detected Hepatitis A IgM Ab Hep Bs Antigen Hep Bs Antibody Hep B Core Total Ab Hepatitis C Ab (EIA) Human Metapneumovir PCR Detected A Influenza A (RT-PCR) Not Detected Influenza B (RT-PCR) Not Detected M. pneumoniae (PCR) Not Detected Parainfluenza 1 (PCR) Not Detected Parainfluenza 2 (PCR) Not Detected Parainfluenza 3 (PCR) Not Detected Parainfluenza 4 (PCR) Not Detected RSV (PCR) Not Detected Entero/Rhino (PCR) Not Detected SARS-CoV-2 RNA (RT-PCR) Not Detected 02/08/24 02/08/24 02/08/24 06:16 07:41 11:36 Hold Purple Top SEE NOTE Sodium 138 Potassium 5.3 H Chloride 105 Carbon Dioxide 22 Anion Gap 16 BUN 65 H Creatinine 2.70 H Estim Creat Clear Calc 17.1 Estimated GFR 17 POC Glucose 209 H 180 H Random Glucose 234 H Calcium 10.3 H D Urine Eosinophils % U Random Total Protein Ur Random Sodium Urine Creatinine Protein/Creatinin Ratio Respiratory Panel [facility] Adenovirus (Rapid PCR) B.pert (TEM-PCR) B.parapertussis DNA PCR C. pneumoniae DNA (PCR) Coronavirus OC43 (PCR) Coronavirus HKU1 (PCR) Coronavirus 229E (PCR) Coronavirus NL63 (PCR) Hepatitis A IgM Ab Nonreactive Hep Bs Antigen Negative Hep Bs Antibody NONREACTIVE Hep B Core Total Ab Reactive Hepatitis C Ab (EIA) Nonreactive Human Metapneumovir PCR Influenza A (RT-PCR) Influenza B (RT-PCR) M. pneumoniae (PCR) Parainfluenza 1 (PCR) Parainfluenza 2 (PCR) Parainfluenza 3 (PCR) Parainfluenza 4 (PCR) RSV (PCR) Entero/Rhino (PCR) SARS-CoV-2 RNA (RT-PCR) Progress Note: A&P Assessment and plan (1) SOB (shortness of breath): Status: Acute Plan Pleasant 73 year female presenting for shortness of breath and elevated blood pressure. Clinically she was felt to be in mild heart failure and was diuresed but creatinine starting worsening. She has been noticed to have proteinuria and is being worked up further by Nephrology. She is getting some IV fluids currently. Her blood pressure continues to be elevated. ECHO is showing left ventricular hypertrophy with hyperdynamic LV function. She has mild wheezes on examination due to lung disease-unlikely to be due to heart failure. Can not get ARB/REESE currently due to kidney injury. On amlodipine but Nephrology may want her to be off of that to due to peripheral edema issues. She is currently on carvedilol 25 mg twice a day. Adding Imdur 30 mg once a day. Thank you for allowing me to participate in the care of your patient. Please feel free to contact me if you have any questions. Time Spent With Patient Time: Total time managing care of this patient today ____ minutes. Progress Note: Quality Stroke Does the patient have a stroke diagnosis?: No Procedures Date of Service Date of Service: 02/08/24
[2024-02-08] MEDS: Isosorbide Mononitrate 30 MG TAB.ER.24H PO (13:28)
[2024-02-08] MEDS: Sodium Zirconium Cyclosilicate 10 GM POWD.PACK PO (13:28)
[2024-02-08 16:36] LABS: Glucose, Whole Blood 216 mg/dL (60-115)
[2024-02-08] MEDS: hydrALAZINE HCl 25 MG TABLET PO ×2 (16:57→20:55)
[2024-02-08 20:29] LABS: Glucose, Whole Blood 372 mg/dL (60-115)
--- NOTE | 2024-02-08 20:51 | PC.NURSE ---
Contacted for HS POC of 372.Dr. Maldonado is fine with 10 per SS and no addtional insulin was given.
[2024-02-08] MEDS: Pravastatin Sodium 40 MG TABLET PO (20:55)
[2024-02-08] MEDS: Fenofibrate 160 MG TABLET PO (20:55)
[2024-02-09] VITALS (10 sets, daily range): BP systolic 120–167; BP diastolic 58–83; PULSE 58–84; RESP 16–20; TEMP 36.1–36.4; O2SAT 94–98
[2024-02-09] MEDS: 0.9 % Sodium Chloride 1,000 ML 100 ML IVCONT (06:14)
--- NOTE | 2024-02-09 07:17 | HO.PM.IMPN ---
Subjective Subjective Date of Service: 02/09/24 Interval History: Seen and examined this morning Follow-up for shortness of breath, bronchitis, ?CHF, giuliano No sob, wheezing. chest pain. No edema Still with productive cough Creatinine now improving Review of Systems Review of Systems: Yes all other systems are reviewed and are negative Constitutional Constitutional: Denies chills and Denies fever(s) Cardiovascular Cardiovascular: Denies chest pain, Denies palpitations, Denies dyspnea and Reports orthopnea Respiratory Respiratory: Denies dyspnea Endocrine Endocrine: Denies palpitations Physical Exam Vital Signs: Vital Signs: Last Vital Signs Temp 97.4 F 02/09/24 03:50 Pulse 62 02/09/24 03:50 Resp 18 02/09/24 03:50 BP 167/77 H 02/09/24 03:50 Pulse Ox 95 02/09/24 03:50 O2 Del Method Room Air 02/09/24 03:50 BMI result Body Mass Index 34.3 Constitutional - Awake and Alert, No apparent distress Eyes - PERRLA, EOMI Cardiovascular - S1S2, RRR, No edema Respiratory - Normal lung expansion, Normal respiratory effort, No respiratory distress, CTA bilaterally Gastrointestinal - NT / ND; +BS; No rebound or guarding Extremities - no calf tenderness bilaterally, no swelling Skin - Warm/Dry Neurological - Alert & oriented x3 Psychological - Appropriate affect Objective Data Active Medications Albuterol/Ipratropium (Albuterol/Iprat 2.5/0.5mg 3 Ml Ampul.Neb) 3 ml INHALE RQ4H WHILE AWAKE [facility] Last Admin: 02/08/24 18:54 Dose: 3 ml Documented By: SAMIR Albuterol/Ipratropium (Albuterol/Iprat 2.5/0.5mg 3 Ml Ampul.Neb) 3 ml INHALE Q3H PRN PRN Reason: sob Last Admin: 02/07/24 04:03 Dose: 3 ml Documented By: SAMIR Amlodipine Besylate (Amlodipine Besylate 5 Mg Tablet) 5 mg PO DAILY [facility]; Protocol Last Admin: 02/08/24 08:23 Dose: 5 mg Documented By: VERO Carvedilol (Carvedilol 25 Mg Tablet) 25 mg PO BID [facility]; Protocol Last Admin: 02/08/24 20:55 Dose: 25 mg Documented By: KEIKO Empagliflozin (Empagliflozin 10 Mg Tablet) 10 mg PO DAILY [facility] Last Admin: 02/08/24 08:23 Dose: 10 mg Documented By: VERO Fenofibrate (Fenofibrate 160 Mg Tablet) 160 mg PO BEDTIME [facility] Last Admin: 02/08/24 20:55 Dose: 160 mg Documented By: KEIKO Glucose (Glucose Gel 15 Gm Gel..Gram.) 15 gm PO Q15M PRN; Protocol PRN Reason: per Hypoglycemia Standing Ord. Heparin Sodium (Porcine) (Heparin Sodium,Porcine 5,000 Unit/Ml Vial) 5,000 unit SUBCUT TID [facility] Last Admin: 02/08/24 20:54 Dose: 5,000 unit Documented By: KEIKO Hydralazine HCl (Hydralazine Hcl 25 Mg Tablet) 25 mg PO TID [facility]; Protocol Last Admin: 02/08/24 20:55 Dose: 25 mg Documented By: KEIKO Dextrose (D10) 250 mls @ 750 mls/hr IV Q15M PRN; Protocol PRN Reason: per Hypoglycemia Standing Ord. Ceftriaxone Sodium 1 gm/ (Sodium Chloride) 50 mls @ 100 mls/hr IV Q24H [facility] Last Infusion: 02/08/24 09:02 Dose: Infused Documented By: AFSANEH Sodium Chloride (Ns) 1,000 mls @ 100 mls/hr IVCONT .Q10H [facility] Last Admin: 02/09/24 06:14 Dose: 100 mls/hr Documented By: MARILYN Insulin Glargine (Insulin Glargine,Hum.Rec.Anlog 100 Unit/Ml 10 Ml Vial) 30 unit SUBCUT DAILY [facility] Last Admin: 02/08/24 08:23 Dose: 30 unit Documented By: VERO Insulin Human Lispro (Insulin Lispro 100 Unit/Ml 3 Ml Vial) 0 unit SUBCUT QIDACHS [facility]; Protocol Last Admin: 02/08/24 20:55 Dose: 10 unit Documented By: KEIKO Insulin Human Lispro (Insulin Lispro 100 Unit/Ml 3 Ml Vial) 5 unit SUBCUT QIDACHS [facility] Isosorbide Mononitrate (Isosorbide Mononitrate 30 Mg Tab.Er.24h) 30 mg PO DAILY [facility]; Protocol Last Admin: 02/08/24 13:28 Dose: 30 mg Documented By: AFSANEH Pravastatin Sodium (Pravastatin Sodium 40 Mg Tablet) 40 mg PO BEDTIME [facility] Last Admin: 02/08/24 20:55 Dose: 40 mg Documented By: KEIKO Prednisone (Prednisone 20 Mg Tablet) 40 mg PO DAILY [facility] Last Admin: 02/08/24 08:23 Dose: 40 mg Documented By: VERO Sodium Chloride (0.9 % Sodium Chloride Flush 3 Ml Syringe) 3 ml IVFLUSH QSHIFT [facility] Last Admin: 02/09/24 00:26 Dose: Not Given Documented By: MARILYN Non-Admin Reason: IV Running Labs 02/07/24 05:59 02/09/24 07:42 Labs: Laboratory Results - last 24 hr 02/07/24 02/08/24 02/08/24 17:08 06:16 07:41 Anion Gap 16 Estim Creat Clear Calc 17.1 Estimated GFR 17 POC Glucose 209 H Random Glucose 234 H Calcium 10.3 H D Urine Eosinophils % 2.0 Respiratory Panel Hoffmann See Note Adenovirus (Rapid PCR) Not Detected B.pert (TEM-PCR) Not Detected B.parapertussis DNA PCR Not Detected C. pneumoniae DNA (PCR) Not Detected Coronavirus OC43 (PCR) Not Detected Coronavirus HKU1 (PCR) Not Detected Coronavirus 229E (PCR) Not Detected Coronavirus NL63 (PCR) Not Detected Hepatitis A IgM Ab Nonreactive Hep Bs Antigen Negative Hep Bs Antibody NONREACTIVE Hep B Core Total Ab Reactive Hepatitis C Ab (EIA) Nonreactive Human Metapneumovir PCR Detected A Influenza A (RT-PCR) Not Detected Influenza B (RT-PCR) Not Detected M. pneumoniae (PCR) Not Detected Parainfluenza 1 (PCR) Not Detected Parainfluenza 2 (PCR) Not Detected Parainfluenza 3 (PCR) Not Detected Parainfluenza 4 (PCR) Not Detected RSV (PCR) Not Detected Entero/Rhino (PCR) Not Detected SARS-CoV-2 RNA (RT-PCR) Not Detected 02/08/24 02/08/24 02/08/24 11:36 16:25 20:25 Anion Gap Estim Creat Clear Calc Estimated GFR POC Glucose 180 H 216 H 372 H* Random Glucose Calcium Urine Eosinophils % Respiratory Panel Hoffmann Adenovirus (Rapid PCR) B.pert (TEM-PCR) B.parapertussis DNA PCR C. pneumoniae DNA (PCR) Coronavirus OC43 (PCR) Coronavirus HKU1 (PCR) Coronavirus 229E (PCR) Coronavirus NL63 (PCR) Hepatitis A IgM Ab Hep Bs Antigen Hep Bs Antibody Hep B Core Total Ab Hepatitis C Ab (EIA) Human Metapneumovir PCR Influenza A (RT-PCR) Influenza B (RT-PCR) M. pneumoniae (PCR) Parainfluenza 1 (PCR) Parainfluenza 2 (PCR) Parainfluenza 3 (PCR) Parainfluenza 4 (PCR) RSV (PCR) Entero/Rhino (PCR) SARS-CoV-2 RNA (RT-PCR) Assessment and Plan (1) UTI (urinary tract infection): Status: Acute (2) Acute kidney injury superimposed on chronic kidney disease: Status: Acute Plan 73 yo female with PMH of gout, HTN, DM here with c/o worsening leg edema, orthopnea, wheezing, DIAS for 4 days Dyspnea may be multifactorial; possible component of CHF and acute bronchitis leg edema and breathing improved with lasix. Hold on further diuretics due to giuliano, clinically euvolemic at this time seen by cardiology, echo shows LVH, ef 65-70% diastolic dysfunction RPP positive for human meetopneumovir- droplet/contact precautions duonebs UTI ucx growing ecoli sensitive to ceftriaxone (initiated 02/06) giuliano on ckd creatinine improving- 2.06 (baseline around 1.6) nephro following, significant proteinura, likely ATN dc fluids, encourate PO intake follow renal function acute Hyperkalemia resolved following ivf and lokelma htn increase coreg to BID dosing. Imdur added by cards due to LVH dc amlodipine (edema), add nifedipine 30mg ER hold valsartan due to giuliano acute gout flare of right great toe continue prednisone dm with hyperglycemia: Hba1c 10.9 continue lantus, jardiance hold metformin, acarbose is NF SSI, POCs hld ontinue statin, lofibra chronic anemia normocytic : denies any current gross bleeding h/h stable obesity: encouraged to loose weight and cut down calories. dvt prophylax: s/c heparin. full code Requires ongoing inpatient stay for further workup regarding dyspnea including possible CHF, and ongoing close monitoring of renal function/lytes requiring specialist evaluation. Dispo: Consider dc tomorrow if creat continues trending down daughter's phone no:[phone]( name:Jerri). Quality Stroke Does the patient have a stroke diagnosis?: No VTE Prior VTE?: No VTE Risk Level:: Medical - moderate - high VTE Device Contraindication: N/A - Device Ordered VTE Drug Contraindication: N/A - Med Ordered
[2024-02-09 07:25] LABS: Glucose, Whole Blood 218 mg/dL (60-115)
[2024-02-09] MEDS: Albuterol/Iprat 2.5/0.5MG 3 ML AMPUL.NEB INHALE ×4 (07:31→18:53)
[2024-02-09] MEDS: predniSONE 20 MG TABLET 40 MG PO (07:53)
[2024-02-09] MEDS: hydrALAZINE HCl 25 MG TABLET PO (07:53)
[2024-02-09] MEDS: carvediloL 25 MG TABLET PO ×2 (07:53→21:05)
[2024-02-09] MEDS: Heparin Sodium,Porcine 5,000 UNIT/ML VIAL 5000 UNIT SUBCUT ×3 (07:53→21:05)
[2024-02-09] MEDS: Isosorbide Mononitrate 30 MG TAB.ER.24H PO (07:53)
[2024-02-09] MEDS: Insulin Lispro 100 UNIT/ML 3 ML VIAL SUBCUT ×8 (07:54→21:06)
[2024-02-09] MEDS: Insulin Glargine,Hum.rec.anlog 100 UNIT/ML 10 ML VIAL 30 UNIT SUBCUT (07:54)
[2024-02-09] MEDS: Empagliflozin 10 MG TABLET PO (07:54)
[2024-02-09] MEDS: cefTRIAXone sodium 1 GM in 0.9 % Sodium Chloride 50 ML IV (07:54)
[2024-02-09] MEDS: amLODIPine Besylate 5 MG TABLET PO (07:54)
[2024-02-09 08:19] LABS: Anion Gap 15 (12-20); Blood Urea Nitrogen 66 mg/dL (9-16); Calcium 9.3 mg/dL (8.4-10.2); Carbon Dioxide 21 mmol/L (22-29); Chloride 109 mmol/L (96-108); Creatinine Clr Calc Pharmacy 22.4; Estimated Glomerular Filt Rate 24; Glucose Random 214 mg/dL (60-115); Potassium 4.5 mmol/L (3.3-5.1); Sodium 140 mmol/L (135-145)
[2024-02-09 11:40] LABS: Glucose, Whole Blood 182 mg/dL (60-115)
[2024-02-09] MEDS: NIFEdipine ER 30 MG TAB.ER.24 PO (12:31)
[2024-02-09] MEDS: guaiFENesin 200 MG/10 ML 10 ML LIQUID PO ×3 (13:35→21:11)
[2024-02-09 16:24] LABS: Glucose, Whole Blood 178 mg/dL (60-115)
[2024-02-09] MEDS: 0.9 % Sodium Chloride Flush 3 ML SYRINGE IVFLUSH ×2 (17:07→21:11)
[2024-02-09 17:49] LABS: Hepatitis B Core Antibody IgM NON-REACTIVE (NON-REACTIVE)
[2024-02-09 21:05] LABS: Glucose, Whole Blood 197 mg/dL (60-115)
[2024-02-09] MEDS: Fenofibrate 160 MG TABLET PO (21:05)
[2024-02-09] MEDS: Pravastatin Sodium 40 MG TABLET PO (21:05)
[2024-02-10] VITALS (11 sets, daily range): BP systolic 122–187; BP diastolic 64–85; PULSE 59–87; RESP 16–22; TEMP 36.1–36.8; O2SAT 93–97
[2024-02-10 07:23] LABS: Anion Gap 15 (12-20); Blood Urea Nitrogen 66 mg/dL (9-16); Calcium 9.8 mg/dL (8.4-10.2); Carbon Dioxide 21 mmol/L (22-29); Chloride 109 mmol/L (96-108); Creatinine Clr Calc Pharmacy 17.8; Estimated Glomerular Filt Rate 18; Glucose Random 101 mg/dL (60-115); Potassium 4.7 mmol/L (3.3-5.1); Sodium 140 mmol/L (135-145)
[2024-02-10] MEDS: Albuterol/Iprat 2.5/0.5MG 3 ML AMPUL.NEB INHALE ×4 (07:33→18:52)
[2024-02-10 07:50] LABS: Glucose, Whole Blood 106 mg/dL (60-115)
[2024-02-10] MEDS: Insulin Glargine,Hum.rec.anlog 100 UNIT/ML 10 ML VIAL 30 UNIT SUBCUT (08:51)
[2024-02-10] MEDS: carvediloL 25 MG TABLET PO ×2 (08:53→22:23)
[2024-02-10] MEDS: predniSONE 20 MG TABLET 40 MG PO (08:53)
[2024-02-10] MEDS: NIFEdipine ER 30 MG TAB.ER.24 PO (08:53)
[2024-02-10] MEDS: Isosorbide Mononitrate 30 MG TAB.ER.24H PO (08:53)
[2024-02-10] MEDS: Heparin Sodium,Porcine 5,000 UNIT/ML VIAL 5000 UNIT SUBCUT ×3 (08:54→22:23)
[2024-02-10] MEDS: cefTRIAXone sodium 1 GM in 0.9 % Sodium Chloride 50 ML IV (08:54)
[2024-02-10] MEDS: Empagliflozin 10 MG TABLET PO (08:54)
[2024-02-10] MEDS: 0.9 % Sodium Chloride Flush 3 ML SYRINGE IVFLUSH ×3 (08:56→22:32)
[2024-02-10 11:36] LABS: Glucose, Whole Blood 208 mg/dL (60-115)
[2024-02-10] MEDS: Insulin Lispro 100 UNIT/ML 3 ML VIAL SUBCUT ×6 (12:18→22:27)
--- NOTE | 2024-02-10 12:34 | PM.EVENT ---
Event Note Date of Service: 02/11/24 Event Note: Events noted Creatinine is trending up Off Lasix since 02/06/24 Massive proteinuria SPEP pending Check Renal ultrasound and watch urine output Time Spent With Patient Time: Total time managing care of this patient today ____ minutes.
[2024-02-10] MEDS: guaiFENesin 200 MG/10 ML 10 ML LIQUID PO ×2 (12:53→22:18)
--- NOTE | 2024-02-10 15:41 | P.PNIM_ITS ---
Subjective Subjective Date of Service: 02/10/24 Interval History: giuliano Review of Systems Denies any shortness a breath or chest pain Has cough Physical Exam 2 Vital Signs: Vital Signs: Last Vital Signs Temp 97.0 F 02/10/24 11:06 Pulse 87 02/10/24 15:13 Resp 18 02/10/24 15:13 BP 187/83 H 02/10/24 11:06 Pulse Ox 93 02/10/24 11:06 O2 Del Method Room Air 02/10/24 11:06 BMI result Body Mass Index 34.3 Appearance: Alert.? Oriented X3.? cvs: [id number], [id number] . res: clear to auscultation ,no rhonchii or wheezing abd: no rebound or guarding ,nt, bs present. ext pulses present , no cyanosis . neuro: axo3 , nonfocal. Objective Data Active Medications Albuterol/Ipratropium (Albuterol/Iprat 2.5/0.5mg 3 Ml Ampul.Neb) 3 ml INHALE RQ4H WHILE AWAKE [facility] Last Admin: 02/10/24 15:12 Dose: 3 ml Documented By: SHANEL Albuterol/Ipratropium (Albuterol/Iprat 2.5/0.5mg 3 Ml Ampul.Neb) 3 ml INHALE Q3H PRN PRN Reason: sob Last Admin: 02/07/24 04:03 Dose: 3 ml Documented By: SAMIR Carvedilol (Carvedilol 25 Mg Tablet) 25 mg PO BID [facility]; Protocol Last Admin: 02/10/24 08:53 Dose: 25 mg Documented By: MENDOZA Empagliflozin (Empagliflozin 10 Mg Tablet) 10 mg PO DAILY [facility] Last Admin: 02/10/24 08:54 Dose: 10 mg Documented By: MENDOZA Fenofibrate (Fenofibrate 160 Mg Tablet) 160 mg PO BEDTIME [facility] Last Admin: 02/09/24 21:05 Dose: 160 mg Documented By: ALFREDITO Glucose (Glucose Gel 15 Gm Gel..Gram.) 15 gm PO Q15M PRN; Protocol PRN Reason: per Hypoglycemia Standing Ord. Guaifenesin (Guaifenesin 200 Mg/10 Ml 10 Ml Liquid) 10 ml PO Q4H PRN PRN Reason: Cough Last Admin: 02/10/24 12:53 Dose: 10 ml Documented By: MENDOZA Heparin Sodium (Porcine) (Heparin Sodium,Porcine 5,000 Unit/Ml Vial) 5,000 unit SUBCUT TID [facility] Last Admin: 02/10/24 08:54 Dose: 5,000 unit Documented By: MENDOZA Dextrose (D10) 250 mls @ 750 mls/hr IV Q15M PRN; Protocol PRN Reason: per Hypoglycemia Standing Ord. Ceftriaxone Sodium 1 gm/ (Sodium Chloride) 50 mls @ 100 mls/hr IV Q24H [facility] Last Infusion: 02/10/24 10:16 Dose: Infused Documented By: MENDOZA Insulin Glargine (Insulin Glargine,Hum.Rec.Anlog 100 Unit/Ml 10 Ml Vial) 30 unit SUBCUT DAILY [facility] Last Admin: 02/10/24 08:51 Dose: 30 unit Documented By: MENDOZA Insulin Human Lispro (Insulin Lispro 100 Unit/Ml 3 Ml Vial) 0 unit SUBCUT QIDACHS [facility]; Protocol Last Admin: 02/10/24 12:18 Dose: 4 unit Documented By: MENDOZA Insulin Human Lispro (Insulin Lispro 100 Unit/Ml 3 Ml Vial) 5 unit SUBCUT QIDACHS [facility] Last Admin: 02/10/24 12:18 Dose: 5 unit Documented By: MENDOZA Isosorbide Mononitrate (Isosorbide Mononitrate 30 Mg Tab.Er.24h) 30 mg PO DAILY [facility]; Protocol Last Admin: 02/10/24 08:53 Dose: 30 mg Documented By: MENDOZA Nifedipine (Nifedipine Er 30 Mg Tab.Er.24) 30 mg PO DAILY [facility]; Protocol Last Admin: 02/10/24 08:53 Dose: 30 mg Documented By: MENDOZA Pravastatin Sodium (Pravastatin Sodium 40 Mg Tablet) 40 mg PO BEDTIME [facility] Last Admin: 02/09/24 21:05 Dose: 40 mg Documented By: ALFREDITO Prednisone (Prednisone 20 Mg Tablet) 20 mg PO DAILY [facility] Sodium Chloride (0.9 % Sodium Chloride Flush 3 Ml Syringe) 3 ml IVFLUSH QSHIFT [facility] Last Admin: 02/10/24 08:56 Dose: 3 ml Documented By: MENDOZA Labs 02/07/24 05:59 02/10/24 06:01 Labs: Laboratory Results - last 24 hr 02/08/24 02/08/24 02/09/24 06:16 06:20 16:12 Hold Purple Top Anion Gap Estim Creat Clear Calc Estimated GFR POC Glucose 178 H Random Glucose Calcium Urine Immunofixation Hep B Core IgM Ab NON-REACTIVE 02/09/24 02/10/24 02/10/24 20:59 06:01 07:46 Hold Purple Top SEE NOTE Anion Gap 15 Estim Creat Clear Calc 17.8 Estimated GFR 18 POC Glucose 197 H 106 Random Glucose 101 Calcium 9.8 Urine Immunofixation Hep B Core IgM Ab 02/10/24 11:32 Hold Purple Top Anion Gap Estim Creat Clear Calc Estimated GFR POC Glucose 208 H Random Glucose Calcium Urine Immunofixation Hep B Core IgM Ab Assessment and Plan (1) UTI (urinary tract infection): Status: Acute (2) Acute kidney injury superimposed on chronic kidney disease: Status: Acute Plan 73 yo female with PMH of gout, HTN, DM here with c/o worsening leg edema, orthopnea, wheezing, DIAS for 4 days Dyspnea may be multifactorial; possible component of CHF and acute bronchitis leg edema and breathing improved with lasix. Hold on further diuretics due to giuliano, clinically euvolemic at this time seen by cardiology, echo shows LVH, ef 65-70% diastolic dysfunction RPP positive for human meetopneumovir- droplet/contact precautions duonebs UTI ucx growing ecoli sensitive to ceftriaxone (initiated 02/06) giuliano on ckd creatinine tredning up- 2.6 (baseline around 1.6) nephro following, significant proteinura, likely ATN dc fluids, encourate PO intake follow renal function acute Hyperkalemia resolved following ivf and lokelma htn increase coreg to BID dosing. Imdur added by cards due to LVH dc amlodipine (edema), add nifedipine 30mg ER hold valsartan due to giuliano acute gout flare of right great toe continue prednisone dm with hyperglycemia: Hba1c 10.9 continue lantus, jardiance hold metformin, acarbose is NF SSI, POCs hld ontinue statin, lofibra chronic anemia normocytic : denies any current gross bleeding h/h stable obesity: encouraged to loose weight and cut down calories. dvt prophylax: s/c heparin. full code Requires ongoing inpatient stay for further workup regarding dyspnea including possible CHF, and ongoing close monitoring of renal function/lytes requiring specialist evaluation. daughter's phone no:[phone]( name:Jerri). Quality Stroke Does the patient have a stroke diagnosis?: No VTE Prior VTE?: No VTE Risk Level:: Medical - moderate - high VTE Device Contraindication: N/A - Device Ordered VTE Drug Contraindication: N/A - Med Ordered
[2024-02-10 15:57] LABS: Glucose, Whole Blood 167 mg/dL (60-115)
[2024-02-10 21:43] LABS: Glucose, Whole Blood 193 mg/dL (60-115)
[2024-02-10] MEDS: Pravastatin Sodium 40 MG TABLET PO (22:22)
[2024-02-10] MEDS: Fenofibrate 160 MG TABLET PO (22:22)
[2024-02-11] VITALS (10 sets, daily range): BP systolic 118–151; BP diastolic 66–83; PULSE 63–73; RESP 16–20; TEMP 36.1–36.8; O2SAT 93–98
[2024-02-11 07:14] LABS: Glucose, Whole Blood 171 mg/dL (60-115)
[2024-02-11] MEDS: Albuterol/Iprat 2.5/0.5MG 3 ML AMPUL.NEB INHALE ×4 (07:25→19:43)
[2024-02-11] MEDS: Heparin Sodium,Porcine 5,000 UNIT/ML VIAL 5000 UNIT SUBCUT ×3 (08:02→21:33)
[2024-02-11] MEDS: Insulin Glargine,Hum.rec.anlog 100 UNIT/ML 10 ML VIAL 30 UNIT SUBCUT (08:02)
[2024-02-11] MEDS: Insulin Lispro 100 UNIT/ML 3 ML VIAL SUBCUT ×6 (08:03→21:33)
[2024-02-11] MEDS: Isosorbide Mononitrate 30 MG TAB.ER.24H PO (08:04)
[2024-02-11] MEDS: Empagliflozin 10 MG TABLET PO (08:05)
[2024-02-11] MEDS: carvediloL 25 MG TABLET PO ×2 (08:05→21:33)
[2024-02-11] MEDS: predniSONE 20 MG TABLET PO (08:05)
[2024-02-11] MEDS: NIFEdipine ER 30 MG TAB.ER.24 PO (08:05)
[2024-02-11] MEDS: cefTRIAXone sodium 1 GM in 0.9 % Sodium Chloride 50 ML IV (08:06)
[2024-02-11] MEDS: 0.9 % Sodium Chloride Flush 3 ML SYRINGE IVFLUSH ×2 (08:06→15:56)
[2024-02-11 08:29] LABS: Anion Gap 14 (12-20); Blood Urea Nitrogen 63 mg/dL (9-16); Calcium 9.6 mg/dL (8.4-10.2); Carbon Dioxide 22 mmol/L (22-29); Chloride 107 mmol/L (96-108); Creatinine Clr Calc Pharmacy 19.7; Estimated Glomerular Filt Rate 20; Glucose Random 193 mg/dL (60-115); Potassium 4.6 mmol/L (3.3-5.1); Sodium 138 mmol/L (135-145)
--- NOTE | 2024-02-11 09:23 | P.PNNP_ITS ---
Subjective Subjective Date of Service: 02/12/24 Interval history: Events noted family at bedside Feels better today Physical Exam 2 Vital Signs: Vital Signs: Last Vital Signs Temp 97.3 F 02/11/24 07:29 Pulse 70 02/11/24 07:29 Resp 20 02/11/24 07:29 BP 151/83 H 02/11/24 07:29 Pulse Ox 93 02/11/24 07:29 O2 Del Method Room Air 02/11/24 07:29 BMI result Body Mass Index 34.3 Const: Nutritional Appearance: well nourished Orientation/consciousness: p atient oriented x3 HEENT: Head: No normal to inspection Mouth: moist mucous membranes Neck: Neck: Yes supple and Yes no JVD Resp: Auscultation: crackles Cardio: Jugular venous distension: no JVD Palpation: no palpable S3 and no palpable S4 Heart sounds: no rubs GI: Palpation (GI): Soft to palpation and nontender Percussion: No Fluid wave present : General: Yes no CVA tenderness Back/Spine/Pelvis: Back: no CVA tenderness Skin: General skin exam: no rashes or lesions noted Neuro: General: patient oriented x3 Extrem: General: Yes no pedal edema and No clubbing Objective Data Labs 02/07/24 05:59 02/12/24 05:49 Labs: Laboratory Results - last 24 hr 02/08/24 02/10/24 02/10/24 06:20 11:32 15:28 Hold Purple Top Sodium Potassium Chloride Carbon Dioxide Anion Gap BUN Creatinine Estim Creat Clear Calc Estimated GFR POC Glucose 208 H 167 H Random Glucose Calcium Urine Immunofixation 02/10/24 02/11/24 02/11/24 21:39 07:10 07:54 Hold Purple Top SEE NOTE Sodium 138 Potassium 4.6 Chloride 107 Carbon Dioxide 22 Anion Gap 14 BUN 63 H Creatinine 2.34 H Estim Creat Clear Calc 19.7 Estimated GFR 20 POC Glucose 193 H 171 H Random Glucose 193 H Calcium 9.6 Urine Immunofixation Procedures Date of Service Date of Service: 02/12/24 Assessment & Plan Assessment and plan (1) Acute kidney injury superimposed on chronic kidney disease: Status: Acute Plan Elderly woman with acute kidney injury superimposed on chronic kidney disease in the setting of longstanding diabetes mellitus. She probably has underlying chronic kidney disease due to longstanding diabetes mellitus./diabetic kidney disease. component of superimposed DANISH due to hypoperfusion. No reason to believe that she has any active obstruction or glomerulonephritis at this time. Urine still shows white cells. She is mild anemia this may be related to underlying chronic kidney disease. MCV is normal. Nephrotic range proteinuria Creatinine is marginally better Recommendations Optimize fluid status. diurese her cautiously. Avoid hypotension. Continue to avoid nephrotoxic agents. Watch UO and Follow serum creatinine Await serology Would need out patient follow up on discharge Time Spent With Patient Time: Total time managing care of this patient today ____ minutes. Progress Note: Quality Stroke Does the patient have a stroke diagnosis?: No
[2024-02-11 11:05] LABS: Glucose, Whole Blood 272 mg/dL (60-115)
[2024-02-11] MEDS: Furosemide 40 MG TABLET PO (11:40)
--- NOTE | 2024-02-11 13:33 | MHC.CM.PN ---
EMR reviewed and per MD rounds, pt is not medically cleared for D/C due to management needed of CHF, and DANISH on CKD.
--- NOTE | 2024-02-11 15:09 | HO.PM.IMPN ---
Subjective Subjective Date of Service: 02/11/24 Interval History: giuliano Review of Systems Denies any shortness a breath or chest pain Has cough has leg edema Physical Exam Vital Signs: Vital Signs: Last Vital Signs Temp 97.4 F 02/11/24 11:24 Pulse 63 02/11/24 14:58 Resp 18 02/11/24 14:58 BP 123/73 02/11/24 11:40 Pulse Ox 97 02/11/24 11:24 O2 Del Method Room Air 02/11/24 11:24 BMI result Body Mass Index 34.3 Appearance: Alert.? Oriented X3.? cvs: rrr, [id number] . res: clear to auscultation ,no rhonchii or wheezing abd: no rebound or guarding ,nt, bs present. ext pulses present , no cyanosis , leg edema neuro: axo3 , nonfocal. Objective Data Active Medications Albuterol/Ipratropium (Albuterol/Iprat 2.5/0.5mg 3 Ml Ampul.Neb) 3 ml INHALE RQ4H WHILE AWAKE [facility] Last Admin: 02/11/24 14:57 Dose: 3 ml Documented By: TAHIR Albuterol/Ipratropium (Albuterol/Iprat 2.5/0.5mg 3 Ml Ampul.Neb) 3 ml INHALE Q3H PRN PRN Reason: sob Last Admin: 02/07/24 04:03 Dose: 3 ml Documented By: SAMIR Carvedilol (Carvedilol 25 Mg Tablet) 25 mg PO BID [facility]; Protocol Last Admin: 02/11/24 08:05 Dose: 25 mg Documented By: MENDOZA Empagliflozin (Empagliflozin 10 Mg Tablet) 10 mg PO DAILY [facility] Last Admin: 02/11/24 08:05 Dose: 10 mg Documented By: MENDOZA Fenofibrate (Fenofibrate 160 Mg Tablet) 160 mg PO BEDTIME [facility] Last Admin: 02/10/24 22:22 Dose: 160 mg Documented By: CAREN Furosemide (Furosemide 40 Mg Tablet) 40 mg PO DAILY [facility]; Protocol Last Admin: 02/11/24 11:40 Dose: 40 mg Documented By: MENDOZA Glucose (Glucose Gel 15 Gm Gel..Gram.) 15 gm PO Q15M PRN; Protocol PRN Reason: per Hypoglycemia Standing Ord. Guaifenesin (Guaifenesin 200 Mg/10 Ml 10 Ml Liquid) 10 ml PO Q4H PRN PRN Reason: Cough Last Admin: 02/10/24 22:18 Dose: 10 ml Documented By: CAREN Heparin Sodium (Porcine) (Heparin Sodium,Porcine 5,000 Unit/Ml Vial) 5,000 unit SUBCUT TID [facility] Last Admin: 02/11/24 08:02 Dose: 5,000 unit Documented By: MENDOZA Dextrose (D10) 250 mls @ 750 mls/hr IV Q15M PRN; Protocol PRN Reason: per Hypoglycemia Standing Ord. Ceftriaxone Sodium 1 gm/ (Sodium Chloride) 50 mls @ 100 mls/hr IV Q24H [facility] Last Infusion: 02/11/24 09:27 Dose: Infused Documented By: MENDOZA Insulin Glargine (Insulin Glargine,Hum.Rec.Anlog 100 Unit/Ml 10 Ml Vial) 30 unit SUBCUT DAILY [facility] Last Admin: 02/11/24 08:02 Dose: 30 unit Documented By: MENDOZA Insulin Human Lispro (Insulin Lispro 100 Unit/Ml 3 Ml Vial) 0 unit SUBCUT QIDACHS [facility]; Protocol Last Admin: 02/11/24 11:40 Dose: 6 unit Documented By: MENDOZA Insulin Human Lispro (Insulin Lispro 100 Unit/Ml 3 Ml Vial) 5 unit SUBCUT QIDACHS [facility] Last Admin: 02/11/24 11:41 Dose: 5 unit Documented By: MENDOZA Isosorbide Mononitrate (Isosorbide Mononitrate 30 Mg Tab.Er.24h) 30 mg PO DAILY [facility]; Protocol Last Admin: 02/11/24 08:04 Dose: 30 mg Documented By: MENDOZA Nifedipine (Nifedipine Er 30 Mg Tab.Er.24) 30 mg PO DAILY [facility]; Protocol Last Admin: 02/11/24 08:05 Dose: 30 mg Documented By: MENDOZA Pravastatin Sodium (Pravastatin Sodium 40 Mg Tablet) 40 mg PO BEDTIME [facility] Last Admin: 02/10/24 22:22 Dose: 40 mg Documented By: CAREN Prednisone (Prednisone 20 Mg Tablet) 20 mg PO DAILY [facility] Last Admin: 02/11/24 08:05 Dose: 20 mg Documented By: MENDOZA Sodium Chloride (0.9 % Sodium Chloride Flush 3 Ml Syringe) 3 ml IVFLUSH QSHIFT [facility] Last Admin: 02/11/24 08:06 Dose: 3 ml Documented By: MENDOZA Labs 02/07/24 05:59 02/11/24 07:54 Labs: Laboratory Results - last 24 hr 02/10/24 02/10/24 02/11/24 15:28 21:39 07:10 Hold Purple Top Anion Gap Estim Creat Clear Calc Estimated GFR POC Glucose 167 H 193 H 171 H Random Glucose Calcium 02/11/24 02/11/24 07:54 10:59 Hold Purple Top SEE NOTE Anion Gap 14 Estim Creat Clear Calc 19.7 Estimated GFR 20 POC Glucose 272 H Random Glucose 193 H Calcium 9.6 Assessment and Plan (1) UTI (urinary tract infection): Status: Acute (2) Acute kidney injury superimposed on chronic kidney disease: Status: Acute Plan 73 yo female with PMH of gout, HTN, DM here with c/o worsening leg edema, orthopnea, wheezing, DIAS for 4 days Dyspnea may be multifactorial; possible component of CHF and acute bronchitis leg edema and breathing improved with lasix. Hold on further diuretics due to giuliano, clinically euvolemic at this time seen by cardiology, echo shows LVH, ef 65-70% diastolic dysfunction RPP positive for human meetopneumovir- droplet/contact precautions duonebs UTI ucx growing ecoli sensitive to ceftriaxone (initiated 02/06) giuliano on ckd 4: creatinine tredning up- 2.4 (baseline around 1.6) nephro following, significant proteinura, likely ATN dc fluids, encourate PO intake follow renal function acute Hyperkalemia resolved following ivf and lokelma. htn increase coreg to BID dosing. Imdur added by cards due to LVH dc amlodipine (edema), add nifedipine 30mg ER hold valsartan due to giuliano acute gout flare of right great toe continue prednisone dm with hyperglycemia: Hba1c 10.9 continue lantus, jardiance hold metformin, acarbose is NF SSI, POCs hld ontinue statin, lofibra chronic anemia normocytic : denies any current gross bleeding h/h stable obesity: encouraged to loose weight and cut down calories. dvt prophylax: s/c heparin. full code Requires ongoing inpatient stay for further workup regarding dyspnea including possible CHF, and ongoing close monitoring of renal function/lytes requiring specialist evaluation, moniter renal function on po lasix since still has edema ,nephrology follow up. daughter's phone no:[phone]( name:Jreri). Quality Stroke Does the patient have a stroke diagnosis?: No VTE Prior VTE?: No VTE Risk Level:: Medical - moderate - high VTE Device Contraindication: N/A - Device Ordered VTE Drug Contraindication: N/A - Med Ordered
[2024-02-11] MEDS: guaiFENesin 200 MG/10 ML 10 ML LIQUID PO ×2 (15:55→21:36)
[2024-02-11 16:07] LABS: Glucose, Whole Blood 137 mg/dL (60-115)
[2024-02-11 19:48] LABS: Glucose, Whole Blood 127 mg/dL (60-115)
[2024-02-11] MEDS: Pravastatin Sodium 40 MG TABLET PO (21:33)
[2024-02-11] MEDS: Fenofibrate 160 MG TABLET PO (21:33)
[2024-02-12] VITALS (12 sets, daily range): BP systolic 111–138; BP diastolic 61–75; PULSE 58–80; RESP 18–20; TEMP 36.1–36.6; O2SAT 94–99
[2024-02-12 06:14] LABS: Anion Gap 16 (12-20); Blood Urea Nitrogen 71 mg/dL (9-16); Calcium 9.7 mg/dL (8.4-10.2); Carbon Dioxide 23 mmol/L (22-29); Chloride 105 mmol/L (96-108); Creatinine Clr Calc Pharmacy 17.9; Estimated Glomerular Filt Rate 18; Glucose Random 92 mg/dL (60-115); Potassium 4.5 mmol/L (3.3-5.1); Sodium 139 mmol/L (135-145)
[2024-02-12 07:44] LABS: Glucose, Whole Blood 95 mg/dL (60-115)
[2024-02-12] MEDS: Albuterol/Iprat 2.5/0.5MG 3 ML AMPUL.NEB INHALE ×4 (07:48→19:51)
[2024-02-12] MEDS: Empagliflozin 10 MG TABLET PO (08:44)
[2024-02-12] MEDS: Heparin Sodium,Porcine 5,000 UNIT/ML VIAL 5000 UNIT SUBCUT ×3 (08:44→21:38)
[2024-02-12] MEDS: predniSONE 20 MG TABLET PO (08:44)
[2024-02-12] MEDS: Insulin Glargine,Hum.rec.anlog 100 UNIT/ML 10 ML VIAL 30 UNIT SUBCUT (08:46)
[2024-02-12] MEDS: Isosorbide Mononitrate 30 MG TAB.ER.24H PO (08:47)
[2024-02-12] MEDS: carvediloL 25 MG TABLET PO ×2 (08:47→21:38)
[2024-02-12] MEDS: 0.9 % Sodium Chloride Flush 3 ML SYRINGE IVFLUSH ×4 (08:48→21:45)
[2024-02-12] MEDS: NIFEdipine ER 30 MG TAB.ER.24 PO (08:48)
[2024-02-12] MEDS: guaiFENesin 200 MG/10 ML 10 ML LIQUID PO ×3 (08:49→21:48)
[2024-02-12] MEDS: cefTRIAXone sodium 1 GM in 0.9 % Sodium Chloride 50 ML IV (08:49)
--- NOTE | 2024-02-12 10:42 | MHC.CM.PN ---
Per ROUNDS discussion, Patient is not yet medically cleared for dc (worsening Kidney function); PT is recommending Outpatient Services and CM will continue to follow.
[2024-02-12 11:25] LABS: Glucose, Whole Blood 273 mg/dL (60-115)
[2024-02-12] MEDS: Insulin Lispro 100 UNIT/ML 3 ML VIAL SUBCUT ×6 (11:30→21:36)
[2024-02-12 15:18] LABS: Glucose, Whole Blood 154 mg/dL (60-115)
[2024-02-12] MEDS: Furosemide 20 MG TABLET PO (15:28)
[2024-02-12 15:43] LABS: IgA 226 mg/dL (70-320); IgG 1088 mg/dL (600-1540); IgM 114 mg/dL (50-300)
--- NOTE | 2024-02-12 16:21 | HO.PM.IMPN ---
Subjective Subjective Date of Service: 02/12/24 Interval History: giuliano Review of Systems Denies any shortness a breath or chest pain,leg edema improving Has cough Physical Exam Vital Signs: Vital Signs: Last Vital Signs Temp 96.9 F 02/12/24 15:20 Pulse 80 02/12/24 15:21 Resp 18 02/12/24 15:21 BP 127/69 02/12/24 15:28 Pulse Ox 99 02/12/24 15:20 O2 Del Method Room Air 02/12/24 15:20 BMI result Body Mass Index 34.3 Appearance: Alert.? Oriented X3.? cvs: rrr, [id number] . res: clear to auscultation ,no rhonchii or wheezing abd: no rebound or guarding ,nt, bs present. ext pulses present , no cyanosis , leg edema neuro: axo3 , nonfocal. Objective Data Active Medications Albuterol/Ipratropium (Albuterol/Iprat 2.5/0.5mg 3 Ml Ampul.Neb) 3 ml INHALE RQ4H WHILE AWAKE [facility] Last Admin: 02/12/24 15:21 Dose: 3 ml Documented By: YOSELIN Albuterol/Ipratropium (Albuterol/Iprat 2.5/0.5mg 3 Ml Ampul.Neb) 3 ml INHALE Q3H PRN PRN Reason: sob Last Admin: 02/07/24 04:03 Dose: 3 ml Documented By: SAMIR Carvedilol (Carvedilol 25 Mg Tablet) 25 mg PO BID [facility]; Protocol Last Admin: 02/12/24 08:47 Dose: 25 mg Documented By: MENDOZA Empagliflozin (Empagliflozin 10 Mg Tablet) 10 mg PO DAILY [facility] Last Admin: 02/12/24 08:44 Dose: 10 mg Documented By: MENDOZA Fenofibrate (Fenofibrate 160 Mg Tablet) 160 mg PO BEDTIME [facility] Last Admin: 02/11/24 21:33 Dose: 160 mg Documented By: MARY Furosemide (Furosemide 40 Mg Tablet) 40 mg PO DAILY [facility]; Protocol Last Admin: 02/12/24 11:07 Dose: Not Given Documented By: MENDOZA Non-Admin Reason: Physician Held Med Glucose (Glucose Gel 15 Gm Gel..Gram.) 15 gm PO Q15M PRN; Protocol PRN Reason: per Hypoglycemia Standing Ord. Guaifenesin (Guaifenesin 200 Mg/10 Ml 10 Ml Liquid) 10 ml PO Q4H PRN PRN Reason: Cough Last Admin: 02/12/24 15:30 Dose: 10 ml Documented By: MENDOZA Heparin Sodium (Porcine) (Heparin Sodium,Porcine 5,000 Unit/Ml Vial) 5,000 unit SUBCUT TID [facility] Last Admin: 02/12/24 15:28 Dose: 5,000 unit Documented By: MENDOZA Dextrose (D10) 250 mls @ 750 mls/hr IV Q15M PRN; Protocol PRN Reason: per Hypoglycemia Standing Ord. Ceftriaxone Sodium 1 gm/ (Sodium Chloride) 50 mls @ 100 mls/hr IV Q24H [facility] Last Infusion: 02/12/24 09:41 Dose: Infused Documented By: MENDOZA Insulin Glargine (Insulin Glargine,Hum.Rec.Anlog 100 Unit/Ml 10 Ml Vial) 30 unit SUBCUT DAILY [facility] Last Admin: 02/12/24 08:46 Dose: 30 unit Documented By: MENDOZA Insulin Human Lispro (Insulin Lispro 100 Unit/Ml 3 Ml Vial) 0 unit SUBCUT QIDACHS [facility]; Protocol Last Admin: 02/12/24 15:28 Dose: 2 unit Documented By: MENDOZA Insulin Human Lispro (Insulin Lispro 100 Unit/Ml 3 Ml Vial) 5 unit SUBCUT QIDACHS [facility] Last Admin: 02/12/24 15:29 Dose: 5 unit Documented By: MENDOZA Isosorbide Mononitrate (Isosorbide Mononitrate 30 Mg Tab.Er.24h) 30 mg PO DAILY [facility]; Protocol Last Admin: 02/12/24 08:47 Dose: 30 mg Documented By: MENDOZA Nifedipine (Nifedipine Er 30 Mg Tab.Er.24) 30 mg PO DAILY [facility]; Protocol Last Admin: 02/12/24 08:48 Dose: 30 mg Documented By: MENDOZA Pravastatin Sodium (Pravastatin Sodium 40 Mg Tablet) 40 mg PO BEDTIME [facility] Last Admin: 02/11/24 21:33 Dose: 40 mg Documented By: MARY Prednisone (Prednisone 20 Mg Tablet) 20 mg PO DAILY [facility] Last Admin: 02/12/24 08:44 Dose: 20 mg Documented By: MENDOZA Sodium Chloride (0.9 % Sodium Chloride Flush 3 Ml Syringe) 3 ml IVFLUSH QSHIFT [facility] Last Admin: 02/12/24 15:29 Dose: 3 ml Documented By: MENDOZA Labs 02/07/24 05:59 02/12/24 05:49 Labs: Laboratory Results - last 24 hr 02/08/24 02/11/24 02/12/24 06:16 19:45 05:49 Hold Purple Top SEE NOTE Anion Gap 16 Estim Creat Clear Calc 17.9 Estimated GFR 18 POC Glucose 127 H Random Glucose 92 Calcium 9.7 IgG Total 1088 IgA Total 226 IgM 114 ANA LAURA Interpretation SEE NOTE 02/12/24 02/12/24 02/12/24 07:34 11:17 15:14 Hold Purple Top Anion Gap Estim Creat Clear Calc Estimated GFR POC Glucose 95 273 H 154 H Random Glucose Calcium IgG Total IgA Total IgM ANA LAURA Interpretation Assessment and Plan (1) UTI (urinary tract infection): Status: Acute (2) Acute kidney injury superimposed on chronic kidney disease: Status: Acute Plan 73 yo female with PMH of gout, HTN, DM here with c/o worsening leg edema, orthopnea, wheezing, DIAS for 4 days Dyspnea may be multifactorial; possible component of CHF and acute bronchitis leg edema and breathing improved with lasix. Hold on further diuretics due to giuliano, clinically euvolemic at this time seen by cardiology, echo shows LVH, ef 65-70% diastolic dysfunction RPP positive for human meetopneumovir- droplet/contact precautions duonebs UTI ucx growing ecoli sensitive to ceftriaxone (initiated 02/06) giuliano on ckd 4: creatinine tredning up- 2.6 (baseline around 1.6) nephro following, significant proteinura, likely ATN dc fluids, encourate PO intake follow renal function acute Hyperkalemia resolved following ivf and lokelma. htn increase coreg to BID dosing. Imdur added by cards due to LVH dc amlodipine (edema), nifedipine 30mg ER hold valsartan due to giuliano acute gout flare of right great toe continue prednisone dm with hyperglycemia: Hba1c 10.9 continue lantus, jardiance hold metformin, acarbose is NF SSI, POCs hld ontinue statin, lofibra chronic anemia normocytic : denies any current gross bleeding h/h stable obesity: encouraged to loose weight and cut down calories. dvt prophylax: s/c heparin. full code Requires ongoing inpatient stay for further workup regarding dyspnea including possible CHF, and ongoing close monitoring of renal function/lytes requiring specialist evaluation, moniter renal function on po lasix since still has edema ,nephrology follow up- discussed -added low dose lasix and moniter renal function/electrolytes in day or so. daughter's phone no:[phone]( name:Jerri). Quality Stroke Does the patient have a stroke diagnosis?: No VTE Prior VTE?: No VTE Risk Level:: Medical - moderate - high VTE Device Contraindication: N/A - Device Ordered VTE Drug Contraindication: N/A - Med Ordered
--- NOTE | 2024-02-12 20:14 | P.PNNP_ITS ---
Subjective Subjective Date of Service: 02/12/24 Interval history: Events noted. All recent data reviewed; D/W hospitalist Physical Exam 2 Vital Signs: Vital Signs: Last Vital Signs Temp 97.8 F 02/12/24 19:27 Pulse 65 02/12/24 19:51 Resp 18 02/12/24 19:51 BP 132/75 02/12/24 19:27 Pulse Ox 95 02/12/24 19:27 O2 Del Method Room Air 02/12/24 19:27 BMI result Body Mass Index 34.3 Const: General: comfortable and no acute distress O rientation/consciousness: patient oriented x3 HEENT: Head: Yes normocephalic Mouth: Normal oral and palatal mucosa present Eyes: EOM: EOMs intact bilaterally Neck: Neck: Yes supple Resp: Auscultation: clear to auscultation bilaterally Cardio: Jugular venous distension: no JVD Rate: regular rate GI: Palpation (GI): Soft to palpation Auscultation: normal bowel sounds : General: Yes no CVA tenderness Back/Spine/Pelvis: Back: no CVA tenderness Skin: General skin exam: no rashes or lesions noted Neuro: General: patient oriented x3 and moves all extremities Objective Data Labs 02/07/24 05:59 02/12/24 05:49 Labs: Laboratory Results - last 24 hr 02/08/24 02/12/24 02/12/24 06:16 05:49 07:34 Hold Purple Top SEE NOTE Sodium 139 Potassium 4.5 Chloride 105 Carbon Dioxide 23 Anion Gap 16 BUN 71 H Creatinine 2.59 H Estim Creat Clear Calc 17.9 Estimated GFR 18 POC Glucose 95 Random Glucose 92 Calcium 9.7 IgG Total 1088 IgA Total 226 IgM 114 ANA LAURA Interpretation SEE NOTE 02/12/24 02/12/24 11:17 15:14 Hold Purple Top Sodium Potassium Chloride Carbon Dioxide Anion Gap BUN Creatinine Estim Creat Clear Calc Estimated GFR POC Glucose 273 H 154 H Random Glucose Calcium IgG Total IgA Total IgM ANA LAURA Interpretation Procedures Date of Service Date of Service: 02/12/24 Assessment & Plan Assessment and plan (1) Acute kidney injury superimposed on chronic kidney disease: Status: Acute Plan 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
[2024-02-12 21:23] LABS: Glucose, Whole Blood 181 mg/dL (60-115)
[2024-02-12] MEDS: Fenofibrate 160 MG TABLET PO (21:38)
[2024-02-12] MEDS: Pravastatin Sodium 40 MG TABLET PO (21:39)
[2024-02-13] VITALS (7 sets, daily range): BP systolic 103–142; BP diastolic 58–78; PULSE 65–72; RESP 16–20; TEMP 35.8–37.1; O2SAT 95–97
[2024-02-13 06:21] LABS: Anion Gap 16 (12-20); Blood Urea Nitrogen 89 mg/dL (9-16); Calcium 9.8 mg/dL (8.4-10.2); Carbon Dioxide 23 mmol/L (22-29); Chloride 105 mmol/L (96-108); Creatinine Clr Calc Pharmacy 15.7; Estimated Glomerular Filt Rate 16; Glucose Random 121 mg/dL (60-115); Potassium 4.5 mmol/L (3.3-5.1); Sodium 139 mmol/L (135-145)
[2024-02-13 08:04] LABS: Glucose, Whole Blood 113 mg/dL (60-115)
[2024-02-13] MEDS: Albuterol/Iprat 2.5/0.5MG 3 ML AMPUL.NEB INHALE ×2 (08:21→11:40)
[2024-02-13] MEDS: predniSONE 10 MG TABLET PO (08:21)
[2024-02-13] MEDS: Empagliflozin 10 MG TABLET PO (08:21)
[2024-02-13] MEDS: carvediloL 25 MG TABLET PO (08:22)
[2024-02-13] MEDS: NIFEdipine ER 30 MG TAB.ER.24 PO (08:22)
[2024-02-13] MEDS: Isosorbide Mononitrate 30 MG TAB.ER.24H PO (08:22)
[2024-02-13] MEDS: Heparin Sodium,Porcine 5,000 UNIT/ML VIAL 5000 UNIT SUBCUT (08:23)
[2024-02-13] MEDS: Insulin Glargine,Hum.rec.anlog 100 UNIT/ML 10 ML VIAL 30 UNIT SUBCUT (08:23)
[2024-02-13] MEDS: cefTRIAXone sodium 1 GM in 0.9 % Sodium Chloride 50 ML IV (08:24)
[2024-02-13] MEDS: 0.9 % Sodium Chloride Flush 3 ML SYRINGE IVFLUSH (08:28)
--- NOTE | 2024-02-13 12:07 | HO.PM.IMPN ---
Subjective Subjective Date of Service: 02/13/24 Interval History: giuliano on ckd Review of Systems sob improved and leg swellin seems improving no fever or cough Physical Exam Vital Signs: Vital Signs: Last Vital Signs Temp 96.5 F L 02/13/24 11:05 Pulse 72 02/13/24 11:41 Resp 16 02/13/24 11:41 BP 103/58 L 02/13/24 11:05 Pulse Ox 95 02/13/24 11:05 O2 Del Method Room Air 02/13/24 11:05 BMI result Body Mass Index 34.3 Appearance: Alert.? Oriented X3.? cvs: rrr, [id number] . res: clear to auscultation ,no rhonchii or wheezing abd: no rebound or guarding ,nt, bs present. ext pulses present , no cyanosis , leg edema neuro: axo3 , nonfocal. Objective Data Active Medications Albuterol/Ipratropium (Albuterol/Iprat 2.5/0.5mg 3 Ml Ampul.Neb) 3 ml INHALE RQ4H WHILE AWAKE [facility] Last Admin: 02/13/24 11:40 Dose: 3 ml Documented By: RAYMUNDO Albuterol/Ipratropium (Albuterol/Iprat 2.5/0.5mg 3 Ml Ampul.Neb) 3 ml INHALE Q3H PRN PRN Reason: sob Last Admin: 02/07/24 04:03 Dose: 3 ml Documented By: SAMIR Carvedilol (Carvedilol 25 Mg Tablet) 25 mg PO BID [facility]; Protocol Last Admin: 02/13/24 08:22 Dose: 25 mg Documented By: AFSANEH Empagliflozin (Empagliflozin 10 Mg Tablet) 10 mg PO DAILY [facility] Last Admin: 02/13/24 08:21 Dose: 10 mg Documented By: AFSANEH Fenofibrate (Fenofibrate 160 Mg Tablet) 160 mg PO BEDTIME [facility] Last Admin: 02/12/24 21:38 Dose: 160 mg Documented By: CAREN Glucose (Glucose Gel 15 Gm Gel..Gram.) 15 gm PO Q15M PRN; Protocol PRN Reason: per Hypoglycemia Standing Ord. Guaifenesin (Guaifenesin 200 Mg/10 Ml 10 Ml Liquid) 10 ml PO Q4H PRN PRN Reason: Cough Last Admin: 02/12/24 21:48 Dose: 10 ml Documented By: CAREN Heparin Sodium (Porcine) (Heparin Sodium,Porcine 5,000 Unit/Ml Vial) 5,000 unit SUBCUT TID [facility] Last Admin: 02/13/24 08:23 Dose: 5,000 unit Documented By: AFSANEH Dextrose (D10) 250 mls @ 750 mls/hr IV Q15M PRN; Protocol PRN Reason: per Hypoglycemia Standing Ord. Ceftriaxone Sodium 1 gm/ (Sodium Chloride) 50 mls @ 100 mls/hr IV Q24H [facility] Last Infusion: 02/13/24 08:55 Dose: Infused Documented By: AFSANEH Insulin Glargine (Insulin Glargine,Hum.Rec.Anlog 100 Unit/Ml 10 Ml Vial) 30 unit SUBCUT DAILY [facility] Last Admin: 02/13/24 08:23 Dose: 30 unit Documented By: AFSANEH Insulin Human Lispro (Insulin Lispro 100 Unit/Ml 3 Ml Vial) 0 unit SUBCUT QIDACHS [facility]; Protocol Last Admin: 02/13/24 08:12 Dose: Not Given Documented By: AFSANEH Non-Admin Reason: No Insulin Coverage Insulin Human Lispro (Insulin Lispro 100 Unit/Ml 3 Ml Vial) 5 unit SUBCUT QIDACHS [facility] Last Admin: 02/13/24 08:13 Dose: Not Given Documented By: AFSANEH Non-Admin Reason: No Insulin Coverage Isosorbide Mononitrate (Isosorbide Mononitrate 30 Mg Tab.Er.24h) 30 mg PO DAILY [facility]; Protocol Last Admin: 02/13/24 08:22 Dose: 30 mg Documented By: AFSANEH Nifedipine (Nifedipine Er 30 Mg Tab.Er.24) 30 mg PO DAILY [facility]; Protocol Last Admin: 02/13/24 08:22 Dose: 30 mg Documented By: AFSANEH Pravastatin Sodium (Pravastatin Sodium 40 Mg Tablet) 40 mg PO BEDTIME [facility] Last Admin: 02/12/24 21:39 Dose: 40 mg Documented By: CAREN Prednisone (Prednisone 10 Mg Tablet) 10 mg PO DAILY [facility] Last Admin: 02/13/24 08:21 Dose: 10 mg Documented By: AFSANEH Sodium Chloride (0.9 % Sodium Chloride Flush 3 Ml Syringe) 3 ml IVFLUSH QSHIFT [facility] Last Admin: 02/13/24 08:28 Dose: 3 ml Documented By: AFSANEH Labs 02/07/24 05:59 02/13/24 05:38 Labs: Laboratory Results - last 24 hr 02/08/24 02/12/24 02/12/24 06:16 15:14 21:19 Hold Purple Top Anion Gap Estim Creat Clear Calc Estimated GFR POC Glucose 154 H 181 H Random Glucose Calcium IgG Total 1088 IgA Total 226 IgM 114 ANA LAURA Interpretation SEE NOTE 02/13/24 02/13/24 05:38 07:31 Hold Purple Top SEE NOTE Anion Gap 16 Estim Creat Clear Calc 15.7 Estimated GFR 16 POC Glucose 113 Random Glucose 121 H Calcium 9.8 IgG Total IgA Total IgM ANA LAURA Interpretation Assessment and Plan (1) UTI (urinary tract infection): Status: Acute (2) Acute kidney injury superimposed on chronic kidney disease: Status: Acute (3) Diabetes type 2, no ocular involvement: Status: Acute Plan 73 yo female with PMH of gout, HTN, DM here with c/o worsening leg edema, orthopnea, wheezing, DIAS for 4 days Dyspnea may be multifactorial; possible component of CHF and acute bronchitis leg edema and breathing improved with lasix. Hold on further diuretics due to giuliano, clinically euvolemic at this time seen by cardiology, echo shows LVH, ef 65-70% diastolic dysfunction RPP positive for human meetopneumovir- droplet/contact precautions duonebs UTI ucx growing ecoli sensitive to ceftriaxone (initiated 02/06) giuliano on ckd 4: creatinine tredning up- 2.6 (baseline around 1.6) nephro following, significant proteinura, likely ATN dc fluids, encourate PO intake follow renal function acute Hyperkalemia resolved following ivf and lokelma. htn increase coreg to BID dosing. Imdur added by cards due to LVH dc amlodipine (edema), nifedipine 30mg ER hold valsartan due to giuliano acute gout flare of right great toe continue prednisone dm with hyperglycemia: Hba1c 10.9 continue lantus, jardiance hold metformin, acarbose is NF SSI, POCs hld ontinue statin, lofibra chronic anemia normocytic : denies any current gross bleeding h/h stable obesity: encouraged to loose weight and cut down calories. dvt prophylax: s/c heparin. full code Requires ongoing inpatient stay for further workup regarding dyspnea including possible CHF, and ongoing close monitoring of renal function/lytes requiring specialist evaluation, moniter renal function on po lasix since still has edema ,nephrology follow up- discussed -added low dose lasix and moniter renal function/electrolytes in day or so. daughter's phone no:[phone]( name:Jerri). Quality Stroke Does the patient have a stroke diagnosis?: No VTE Prior VTE?: No VTE Risk Level:: Medical - moderate - high VTE Device Contraindication: N/A - Device Ordered VTE Drug Contraindication: N/A - Med Ordered
[2024-02-13 12:14] LABS: Glucose, Whole Blood 281 mg/dL (60-115)
[2024-02-13] MEDS: Insulin Lispro 100 UNIT/ML 3 ML VIAL SUBCUT ×2 (12:22)
--- NOTE | 2024-02-13 12:56 | P.CDIM_ITS ---
PROVIDER RESPONSE TEXT: To clarify, the appropriate diagnosis supported by the clinical indicators: CKD Stage 3 QUERY TEXT: PHYSICIAN'S DOCUMENTATION REQUEST Date of Query: 02/13/2024 10:21 AM EDT Patient Name: Enma Gaston Admit Date: 02/06/2024 Dear Shanda Owen, A review of the medical record indicates additional documentation may be needed. Please review below and update the documentation accordingly. 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 Please use your independent medical judgment in providing your response. THIS QUERY IS PART OF THE PERMANENT MEDICAL RECORD
--- NOTE | 2024-02-13 12:59 | P.PNNP_ITS ---
Subjective Subjective Date of Service: 02/13/24 Interval history: danish on ckd Cr worsened Physical Exam 2 Vital Signs: Vital Signs: Last Vital Signs Temp 96.5 F L 02/13/24 11:05 Pulse 72 02/13/24 11:41 Resp 16 02/13/24 11:41 BP 103/58 L 02/13/24 11:05 Pulse Ox 95 02/13/24 11:05 O2 Del Method Room Air 02/13/24 11:05 BMI result Body Mass Index 34.3 Const: Nutritional Appearance: well nourished Orientation/consciousness: p atient oriented x3 HEENT: Head: No normal to inspection Mouth: moist mucous membranes Neck: Neck: Yes supple and Yes no JVD Resp: Auscultation: crackles Cardio: Jugular venous distension: no JVD Palpation: no palpable S3 and no palpable S4 Heart sounds: no rubs GI: Palpation (GI): Soft to palpation and nontender Percussion: No Fluid wave present : General: Yes no CVA tenderness Back/Spine/Pelvis: Back: no CVA tenderness Skin: General skin exam: no rashes or lesions noted Neuro: General: patient oriented x3 Extrem: General: Yes no pedal edema and No clubbing Objective Data Labs 02/07/24 05:59 02/13/24 05:38 Labs: Laboratory Results - last 24 hr 02/08/24 02/12/24 02/12/24 06:16 15:14 21:19 Hold Purple Top Sodium Potassium Chloride Carbon Dioxide Anion Gap BUN Creatinine Estim Creat Clear Calc Estimated GFR POC Glucose 154 H 181 H Random Glucose Calcium IgG Total 1088 IgA Total 226 IgM 114 ANA LAURA Interpretation SEE NOTE 02/13/24 02/13/24 02/13/24 05:38 07:31 11:08 Hold Purple Top SEE NOTE Sodium 139 Potassium 4.5 Chloride 105 Carbon Dioxide 23 Anion Gap 16 BUN 89 H Creatinine 2.94 H Estim Creat Clear Calc 15.7 Estimated GFR 16 POC Glucose 113 281 H Random Glucose 121 H Calcium 9.8 IgG Total IgA Total IgM ANA LAURA Interpretation Procedures Date of Service Date of Service: 02/13/24 Assessment & Plan Assessment and plan (1) Acute kidney injury superimposed on chronic kidney disease: Status: Acute Plan Elderly woman with acute kidney injury superimposed on chronic kidney disease in the setting of longstanding diabetes mellitus. She probably has underlying chronic kidney disease due to longstanding diabetes mellitus./diabetic kidney disease. component of superimposed DANISH due to hypoperfusion. No reason to believe that she has any active obstruction or glomerulonephritis at this time. Urine still shows white cells. She is mild anemia this may be related to underlying chronic kidney disease. MCV is normal. Nephrotic range proteinuria Creatinine remains elevated NO hydronephrosis by sonogram Recommendations HOLD Diuretics - clinically appears dry Avoid hypotension. Continue to avoid nephrotoxic agents. Watch UO and Follow serum creatinine Would need close out patient follow up on discharge Time Spent With Patient Time: Total time managing care of this patient today ____ minutes. Progress Note: Quality Stroke Does the patient have a stroke diagnosis?: No
--- NOTE | 2024-02-13 14:07 | MHC.CM.PN ---
Pt is medically cleared for D/C home self-care, pts daughter to transport her home.
--- NOTE | 2024-02-13 14:11 | PM.DS ---
DS: Providers Provider Date of Service: 02/13/24 Date of admission: 02/06/24 10:06 Date of discharge: 02/13/24 Primary care physician: Unknown Physician Consults: 02/06/24 09:32 Consult to Cardiology Routine Consulting Provider: [facility] Reason for consultation: chf/chest pain Has provider been notified: No Consult to Nephrology Routine Consulting Provider: [facility] Reason for consultation: danish on ckd ,chf setting Has provider been notified: No Attending physician on discharge: Shanda Owen Discharging clinician: Shanda Owen DS: Diagnosis Discharge Diagnosis (1) Acute kidney injury superimposed on chronic kidney disease: Status: Acute DS: Summary Hospital Course Hospital Course: 73 yo female with PMH of gout, HTN, DM here with c/o worsening leg edema, orthopnea, wheezing, DIAS for 4 days-Patient speaks limited Tristanian-patient history taken with the help of daughter. 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 As per daughter seems her dm uncontrolled . Denies any new complaint of chest pain or abdominal pain or fever or chills or nausea or vomiting or cough or weakness or numbness. in addition has right bid toe pain and swelling also . no fever labs imaging ekg reviewed : h/h : 9.5 /29.9 bun/cr : 49/2.15( baseline cr ? 1.2 -1.6 ) ekg nsr trops elevated : 49.6-56.8 (flat) now has glucosuria/ proteinuria also. cxr:New platelike atelectasis left lung base. venous duplex LE B/l: No DVT demonstrated in the bilateral lower extremity. Hospital course: Possible Mild HFpEF: intailly received iv lasix ,diursed well ,seems euvolemic ,hold diuretics .seen by cardiology: added imdur 30 mg daily and nifedipine ER 30 mg daily, please see below lasix use with nephrology . cardiology may arrange their own appointment. uti -completed antibiotics . danish on ckd:cretainine seems worsening,also has proteinuria - hold diuretics and nathaniel/arb: Secondary to DANISH( which is possibly multifactorial-lond standing dm and possible superimposed DANISH due to hypoperfusion.): Patient is euvolemic, initially was question of mild CHF but seems to be euvolemic now so nephrology recommended to hold Lasix until followed up outpatient with BMP and preschool aide. avoid nephrotoxic medications. Monitor BMP out patiently with Nephrology. dm with ptreinuria: due to danish patient dm meds adjusted -stop metformin ,ascarbose ,glicliside , soliqua changed to lantus and sliding scale coverage . plan: hold hold diuretics and nathaniel/arb for danish and hold amlodipine due to leg swelling:Monitor BMP out patiently with Nephrology.further use of lasix and proteinuria workup as per nephro outpatient. renal ultrasound shows incidental findings :Indeterminate reniform structure medial to the spleen measuring 5.1 x3.0 x 4.0 cm. Further cross-sectional imaging correlation is needed-which can be done outpatient with pcp and nephrology. take imdur 30 mg daily and nifedipine ER 30 mg daily,in addition to coreg. Dm with proteinuria: due to danish patient dm meds adjusted -stop metformin ,ascarbose ,glicliside , soliqua changed to lantus and sliding scale coverage , Diabetic education given. Assessment and plan coordination time spent 45 minute- above management discussed with the patient daughter in detail length she understand and in agreement with the above plan. Time Attestation Total time managing care of this patient today: 45 mintues. Discharge Coordination Time (in mins): 45 min Quality: Safe Use of Opioids Does Pt have an Active Cancer Diagnosis on the Problem List?: No Quality: Stroke Does the patient have a stroke diagnosis?: No Physical Exam Vital Signs: Vital Signs: Last Vital Signs Temp 96.5 F L 02/13/24 11:05 Pulse 72 02/13/24 11:41 Resp 16 02/13/24 11:41 BP 103/58 L 02/13/24 11:05 Pulse Ox 95 02/13/24 11:05 O2 Del Method Room Air 02/13/24 11:05 BMI result Body Mass Index 34.3 Appearance: Alert.? Oriented X3.? cvs: rrr, [id number] . res: clear to auscultation ,no rhonchii or wheezing abd: no rebound or guarding ,nt, bs present. ext pulses present , no cyanosis . neuro: axo3 , nonfocal. DS: Data Data Completed and Pending Labs on day of discharge: Laboratory Results - last 24 hr 02/08/24 02/12/24 02/12/24 06:16 15:14 21:19 Hold Purple Top Sodium Potassium Chloride Carbon Dioxide Anion Gap BUN Creatinine Estim Creat Clear Calc Estimated GFR POC Glucose 154 H 181 H Random Glucose Calcium IgG Total 1088 IgA Total 226 IgM 114 ANA LAURA Interpretation SEE NOTE 02/13/24 02/13/24 02/13/24 05:38 07:31 11:08 Hold Purple Top SEE NOTE Sodium 139 Potassium 4.5 Chloride 105 Carbon Dioxide 23 Anion Gap 16 BUN 89 H Creatinine 2.94 H Estim Creat Clear Calc 15.7 Estimated GFR 16 POC Glucose 113 281 H Random Glucose 121 H Calcium 9.8 IgG Total IgA Total IgM ANA LAURA Interpretation Imaging Chest x-ray: Radiologist's impression: ITS Impressions Venous Duplex 02/06/24 07:50 IMPRESSION: No DVT demonstrated in the bilateral lower extremity. Chest X-Ray 02/06/24 08:22 IMPRESSION: New platelike atelectasis left lung base. Renal Ultrasound 02/13/24 11:59 IMPRESSION: Asymmetric atrophy of the right kidney with areas of cortical scarring. No hydronephrosis. Indeterminate reniform structure medial to the spleen measuring 5.1 x 3.0 x 4.0 cm. Further cross-sectional imaging correlation is needed. Discharge Plan Discharge Anticipated Discharge Date/Time: 02/13/24 12:53 Patient Disposition: Home, Self-Care Discharge Diagnosis: bolivar on ckd 3 ,uti,prteinuria,possible Mild HFpEF,gout flare imrpoved. Referrals: Cristhian Dolan MD [Physician] - 1 Week Physician,Unknown J [Primary Care Provider] - 1 Week Discharge Medications: New nifedipine 30 mg Tablet Extended Release 24hr 30 mg PO DAILY Qty: 30 0RF Protocol: Hold for SBP< HOLD for SBP < : 90 isosorbide mononitrate 30 mg Tablet Extended Release 24 Hr 30 mg PO DAILY Qty: 30 0RF Protocol: Hold for SBP< HOLD for SBP < : 90 (DME) FreeStyle Lite Strips Strip Qty: 100 0RF Rx Instructions: Test four times a day or as directed. (DME) blood-glucose meter [FreeStyle Lite Meter] Kit Qty: 1 0RF Rx Instructions: As Directed alcohol swabs Pads, Medicated 1 pad TOPICAL QIDACHS Qty: 100 0RF Rx Instructions: Use four times a day or as directed. insulin lispro [Humalog KwikPen Insulin] 100 unit/mL insulin pen 0 sliding scale dose SUBCUT QIDACHS Qty: 15 0RF Rx Instructions: Blood Sugar: <150 - 0 units 151-200 - 2 units 201-250 - 4 units 251-300 - 6 units 301-350 - 8 units >350 - 10 units insulin glargine [Lantus Solostar U-100 Insulin] 100 unit/mL (3 mL) insulin pen 30 unit SUBCUT DAILY Qty: 15 0RF (DME) pen needle, diabetic 32 gauge x 1/4 needle Qty: 100 0RF Rx Instructions: Use four times a day or as directed. (DME) lancets [FreeStyle Lancets] 28 gauge misc Qty: 100 0RF Rx Instructions: Test four times a day or as directed. Continued (DME) lancets [FreeStyle Lancets] 28 gauge misc See Rx Instructions .Route Qty: 300 0RF Rx Instructions: Test 3 times per day (DME) blood-glucose meter [FreeStyle Lite Meter] Kit See Rx Instructions .Route Qty: 1 0RF Rx Instructions: As directed to test blood sugar 3 times per day carvedilol 25 mg tablet 25 mg PO DAILY Rx Instructions: must administer with a meal/food fenofibrate 160 mg Tablet 160 mg PO DAILY acetaminophen 500 mg Tablet 500 mg PO DAILY PRN (Reason: Pain) pravastatin 40 mg Tablet 40 mg PO BEDTIME (DME) FreeStyle Lite Strips Strip See Rx Instructions .Route Qty: 100 0RF Rx Instructions: As directed Discontinued acarbose 100 mg Tablet 100 mg PO TIDAC Soliqua 100/33 100 unit-33 mcg/mL Insulin Pen 36 unit SUBCUT QAM Gliclazide 30 mg tablet 30 mg PO BID amlodipine-valsartan 5-160 mg tablet 1 tab PO DAILY Qty: 90 0RF metformin 850 mg tablet 850 mg PO BID Qty: 180 0RF Discharge Orders: Discharge Order (Routine); Ordered 02/13/24 Ordered By: Shanda Owen Diet: Advance to usual diet Activity on Discharge: As tolerated Stand Alone Forms: Patient Portal Discharge page Print Language: Tristanian Other Ambulatory Orders: Basic Metabolic Panel (Routine) Timeframe: 1 Week Facility: [facility] - Location: Laboratory Ordered By: Shanda Owen Care Plan Goals: Possible Mild HFpEF: intailly received iv lasix ,diursed well ,seems euvolemic ,hold diuretics .seen by cardiology: added imdur 30 mg daily and nifedipine ER 30 mg daily, please see below lasix use with nephrology . cardiology may arrange their own appointment. uti -completed antibiotics . danish on ckd: hold diuretics and nathaniel/arb: Secondary to DANISH( which is possibly multifactorial): Patient is euvolemic, initially was question of mild CHF but seems to be euvolemic now so nephrology recommended to hold Lasix until followed up outpatient with BMP and preschool aide. avoid nephrotoxic medications. Monitor BMP out patiently with Nephrology. dm with ptreinuria: due to danish patient dm meds adjusted -stop metformin ,ascarbose ,glicliside , soliqua changed to lantus and sliding scale coverage . Health Concerns: as above. Plan of Treatment: as above. Assessment: as above.
--- NOTE | 2024-02-13 15:09 | P.F2F_ITS ---
Service Date Service Date: 02/13/24 Encounter Date of encounter: 02/13/24 Encounter: Diabetes with proteinuria, DANISH on CKD, CHF Reasons for Services Signs and symptoms assessed: New symptom of shortness of breath or swelling or any new symptoms Reason for jail: CV/CP assess and/or care, medication management, medication treatment and teach disease management MD Overseeing Care: Nick Nelson Homebound: Leaving the home is medically contraindicated at this time without the asist of a device and/or another person due th the listed conditions above and below. Reason homebound: weakness related to hospital stay Homebound supporting statement: Patient is generalized weak post hospitalization has multiple comorbidities including CHF, DANISH and CKD, diabetes with proteinuria, also has multiple medication adjustment during this admission-need help for disease management, lab draws, appointments, Certification: Based on the above findings, I certify that this patient is confined to the home and needs intermittent jail care, physical therapy and/or speech therapy, or continues to need occupational therapy. The patient is under my care, and I have initiated the establishment of the plan of care. The patient will be followed by a physician who will periodically review the plan of care. Time Spent With Patient Time: Total time managing care of this patient today ____ minutes.
--- NOTE | 2024-02-13 15:16 | MHC.CM.PN ---
Second IMM 02/12. Pt is medically cleared for D/C home with [facility]. Pts daughter is transporting her home.
== END 2024-02-13 16:19 | disposition home or self-care (01) | DRG 291 ==
LOC: HO.ED 09:38 → HO.EDOVER 10:08 → HO.IMC 15:17
PROVIDERS: Internal Medicine Nephrology; Physician Assistant; Physician Assistant Medical; Admitting Provider Internal Medicine; Emergency Provider Emergency Medicine; PCP Nurse Practitioner Primary Care; Visit Provider Internal Medicine
DX: I13.0 Hypertensive heart and chronic kidney disease with heart failure and stage 1 through stage 4 chronic kidney disease, or unspecified chronic kidney disease (principal); I50.31 Acute diastolic (congestive) heart failure; N17.0 Acute kidney failure with tubular necrosis; N39.0 Urinary tract infection, site not specified; E11.65 Type 2 diabetes mellitus with hyperglycemia; B96.20 Unspecified Escherichia coli [E. coli] as the cause of diseases classified elsewhere; D63.1 Anemia in chronic kidney disease; E66.9 Obesity, unspecified; J20.9 Acute bronchitis, unspecified; E87.5 Hyperkalemia; B97.81 Human metapneumovirus as the cause of diseases classified elsewhere; E78.5 Hyperlipidemia, unspecified; Z68.34 Body mass index [BMI] 34.0-34.9, adult; N18.30 Chronic kidney disease, stage 3 unspecified; E11.22 Type 2 diabetes mellitus with diabetic chronic kidney disease; M10.9 Gout, unspecified; Z20.822 Contact with and (suspected) exposure to COVID-19; Z71.3 Dietary counseling and surveillance; Z88.0 Allergy status to penicillin; Z79.4 Long term (current) use of insulin; Z79.899 Other long term (current) drug therapy
CPT/HCPCS: 0241U; 36415; 71045; 71046; 73562; 76775; 80048; 80053; 81001; 82306; 82570; 82607; 82784; 82947; 83036; 83880; 84156; 84207; 84300; 84443; 84484; 84550; 85007; 85027; 85999; 86334; 86335; 86704; 86705; 86706; 86709; 86803; 87086; 87088; 87186; 87340; 87502; 87633; 87635; 93005; 93306; 93970; 94640; 97162; 99285; J0696; J1644; J1940; J2930; Q9957

== ENCOUNTER → 2024-02-06 02:35 | Outpatient (BNV) | payer MEDICARE, SELFPAY | PROVIDERS: Admitting Provider Internal Medicine; Emergency Provider Emergency Medicine; Visit Provider Internal Medicine Cardiovascular Disease | DX: R94.31 Abnormal electrocardiogram [ECG] [EKG] (principal) | CPT/HCPCS: 93010 ==

== ENCOUNTER 2024-02-06 10:06 | Outpatient (BNV) | payer MEDICARE, SELFPAY | END 2024-02-07 07:00 | PROVIDERS: Admitting Provider Internal Medicine; Emergency Provider Emergency Medicine; Visit Provider Internal Medicine Cardiovascular Disease | DX: I50.9 Heart failure, unspecified (principal) | CPT/HCPCS: 93306 ==

== ENCOUNTER → 2024-02-06 10:06 | Outpatient (BNV) | payer MEDICARE, SELFPAY | PROVIDERS: Admitting Provider Internal Medicine; Emergency Provider Emergency Medicine; Visit Provider Internal Medicine Nephrology | DX: N17.9 Acute kidney failure, unspecified (principal); E11.22 Type 2 diabetes mellitus with diabetic chronic kidney disease; N18.9 Chronic kidney disease, unspecified | CPT/HCPCS: 99223; 99232; 99499 ==

== ENCOUNTER → 2024-02-06 10:06 | Outpatient (BNV) | payer MEDICARE, SELFPAY | PROVIDERS: Admitting Provider Internal Medicine; Emergency Provider Emergency Medicine; Visit Provider Internal Medicine | DX: N17.9 Acute kidney failure, unspecified (principal); E11.22 Type 2 diabetes mellitus with diabetic chronic kidney disease; N18.9 Chronic kidney disease, unspecified | CPT/HCPCS: 99222; 99231; 99232; 99233; 99239; G0180 ==

== ENCOUNTER → 2024-02-06 10:06 | Outpatient (BNV) | payer MEDICARE, SELFPAY | PROVIDERS: Admitting Provider Internal Medicine; Emergency Provider Emergency Medicine; Visit Provider Internal Medicine Cardiovascular Disease | DX: R06.02 Shortness of breath (principal); R03.0 Elevated blood-pressure reading, without diagnosis of hypertension | CPT/HCPCS: 99223; 99232; 99233 ==

== ENCOUNTER 2024-02-18 10:56 | Outpatient (AMB) | payer MEDICARE, SELFPAY ==
--- NOTE | 2024-02-18 10:59 | HO.NEPHOV ---
Vital Signs 02/18/24 11:00 Height 5 ft Weight 169 lb BMI 33.0 BP 160/80 H Blood Pressure Location Lt brachial Position Sitting Pulse 88 Pulse Source Pulse Oximeter Pulse Oximetry (%) 97 Oxygen Delivery Method Room Air Intake Visit Reasons: CKD STG 4/ Confirmed Director Bioinformatics Required: No Accompanied by: Daughter Allergies lactose Allergy (Mild, Verified 02/18/24 11:02) Unknown Penicillins [PENICILLINS] Allergy (Unknown, Verified 02/18/24 11:02) Rash shellfish Allergy (Mild, Uncoded 02/18/24 11:02) Unknown HPI Comments Details: 73-year-old woman with a history of longstanding diabetes mellitus for more than 20 years. She was recently hospitalized and was found to have acute kidney injury. During workup she was found to have about 5 g of proteinuria. At the time of discharge serum creatinine decreased to 2.8 mg/dL. She appeared euvolemic. She was on valsartan and Jardiance which were placed on hold. Today she was accompanied by her daughter. Blood pressure is still suboptimal blood sugar is suboptimal. She has no shortness of breath at rest. She has shortness of breath on exertion. no nausea or vomiting. No urinary symptoms. [facility] Medical History Cataract Hypertension Gout Surgical History History of cholecystectomy H/O: hysterectomy Social History Household Members: Family Housing: Apartment Do you presently have visiting nurse or other home services: No Comment: refusing alarms Patient Tobacco Use Status: Never used Tobacco Second Hand Smoke Exposure: No service: No Current occupational status: retired Physical Exam Vital Signs: Last Vital Signs Pulse 88 02/18/24 11:00 BP 160/80 H 02/18/24 11:00 Pulse Ox 97 02/18/24 11:00 Oxygen Delivery Method Room Air 02/18/24 11:00 BMI result Body Mass Index 33.0 Last Vital Signs Temp 96.5 F L 02/13/24 11:05 Pulse 72 02/13/24 11:41 Resp 16 02/13/24 11:41 BP 103/58 L 02/13/24 11:05 Pulse Ox 95 02/13/24 11:05 O2 Del Method Room Air 02/13/24 11:05 BMI result Body Mass Index 34.3 Const Nutritional Appearance: well nourished Orientation/consciousness: patient oriented x3 HEENT Head: No normal to inspection Mouth: moist mucous membranes Neck Neck: Yes supple and Yes no JVD Resp Auscultation: crackles Cardio Jugular venous distension: no JVD Palpation: no palpable S3 and no palpable S4 Heart sounds: no rubs GI Palpation (GI): Soft to palpation and nontender Percussion: No Fluid wave present General: Yes no CVA tenderness Back/Spine/Pelvis Back: no CVA tenderness Skin General skin exam: no rashes or lesions noted Neuro General: patient oriented x3 Extrem General: No clubbing Results Reviewed Nephrology Results: Hgb 9.6 g/dl (12.0-16.0) L 02/18/24 WBC 14.5 X10*3/uL (4.8-10.8) H 02/18/24 Plt Count 260 X10*3/uL (160-400) 02/18/24 Sodium 137 mmol/L (135-145) 02/18/24 Potassium 4.9 mmol/L (3.3-5.1) 02/18/24 Chloride 108 mmol/L (96-108) 02/18/24 Carbon Dioxide 25 mmol/L (22-29) 02/18/24 BUN 41 mg/dL (9-16) H 02/18/24 Creatinine 2.21 mg/dL (0.5-1.4) H 02/18/24 Calcium 9.3 mg/dL (8.4-10.2) 02/18/24 PTH Intact Pending 02/18/24 Urine Protein 300 (3+) mg/dL (Neg-Trace) H 02/05/24 Urine Creatinine 24.94 mg/dL 02/07/24 Protein/Creatinin Ratio 5.85 (<0.2) H 02/07/24 Renal US 02/13/24 Assessment & Plan Assessment & Plan (1) Acute kidney injury superimposed on chronic kidney disease: Code(s): N17.9 - Acute kidney failure, unspecified; N18.9 - Chronic kidney disease, unspecified Category: Medical Plan 73-year-old woman with acute kidney injury superimposed on chronic kidney disease. She has support fragments of proteinuria most likely due to underlying diabetic nephropathy. 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 Baseline creatinine is around 2.2 mg/dL. She sustained DANISH due to hypoperfusion. Renal function has improved and close to baseline. At this point the goal is to slow the portion disease Continue overt nephrotoxic agents. She will benefit from angiotensin receptor blockade. If the creatinine remains stable I will start her back on valsartan. She will also benefit from restarting Jardiance however it is too expensive and the might not be able to start this at this time. We discussed importance of tight control of blood sugar and blood pressure to slow the portion disease. She is on carvedilol 25 mg daily. I will switch it to 12.5 mg b.i.d.. Anemia due to underlying chronic kidney disease. No absolute indication for Epogen yet She will follow closely. Orders: Orders Complete Blood Count no Diff Today N17.9 - Acute kidney failure, unspecified, N18.9 - Chronic kidney disease, unspecified Parathyroid Hormone Intact Today N17.9 - Acute kidney failure, unspecified, N18.9 - Chronic kidney disease, unspecified Medications: Changed From carvedilol must administer with a meal/food 25 mg PO DAILY To carvedilol 12.5 mg PO BID 60 tabs 3RF Coding Level of Care Code Est Pt Level 4 (74058) Diagnoses Acute kidney injury superimposed on chronic kidney disease N17.9; N18.9
[2024-02-18 11:00] VITALS: BP 160/80; PULSE 88; O2SAT 97; BMI 33.0
== END 2024-02-18 11:23 | disposition home or self-care (01) ==
PROVIDERS: PCP Nurse Practitioner Primary Care; Referring Provider Nurse Practitioner Primary Care; Visit Provider Internal Medicine Hypertension Specialist
DX: N17.9 Acute kidney failure, unspecified (principal); N18.9 Chronic kidney disease, unspecified
CPT/HCPCS: 99214

== ENCOUNTER 2024-02-18 11:32 | Outpatient (REF) | payer MEDICARE, SELFPAY ==
[2024-02-18 13:05] LABS: Hemoglobin 9.6 g/dl (12.0-16.0); Mean Corpuscular Hemoglobin 29.1 pg (27.0-33.0); Mean Corpuscular Volume 90.9 fL (80.0-98.0); Mean Platelet Volume 11.8 fL (9.4-12.3); Platelet Count 260 X10*3/uL (160-400); Red Cell Distribution Width 14.9 % (11.0-16.0); White Blood Count 14.5 X10*3/uL (4.8-10.8)
[2024-02-18 13:14] LABS: Anion Gap 9 (12-20); Blood Urea Nitrogen 41 mg/dL (9-16); Calcium 9.3 mg/dL (8.4-10.2); Carbon Dioxide 25 mmol/L (22-29); Chloride 108 mmol/L (96-108); Estimated Glomerular Filt Rate 22; Glucose Random 242 mg/dL (60-115); Potassium 4.9 mmol/L (3.3-5.1); Sodium 137 mmol/L (135-145)
[2024-02-18 14:04] LABS: Parathyroid Hormone Intact 308.9 pg/mL (8.7-77.1)
== END 2024-02-18 11:33 | disposition home or self-care (01) ==
LOC: HO.10HDL 11:32
PROVIDERS: Internal Medicine; Visit Provider Internal Medicine Hypertension Specialist
DX: N17.9 Acute kidney failure, unspecified (principal); N18.4 Chronic kidney disease, stage 4 (severe)
CPT/HCPCS: 36415; 80048; 83970; 85027; 99212

== ENCOUNTER 2024-02-19 12:19 | Outpatient (AMB) | payer MEDICARE, SELFPAY ==
[2024-02-19 12:23] VITALS: BP 152/82; PULSE 88; O2SAT 98; BMI 33.2
--- NOTE | 2024-02-19 12:23 | A.OFFPC_ITS ---
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 blood sugar diagnostic (FreeStyle Lite Strips) three times per day blood-glucose meter (FreeStyle Lite Meter kit) As Directed blood-glucose meter (FreeStyle Lite Meter kit) As directed to test blood sugar 3 times per day carvedilol 12.5 mg PO BID fenofibrate 160 mg PO DAILY insulin glargine (Lantus Solostar U-100 Insulin) 30 units (0.3 mL) subcut DAILY insulin lispro (Humalog KwikPen (U-100) Insulin) Blood Sugar: <150 - 0 units 151-200 - 2 units 201-250 - 4 units 251-300 - 6 units 301-350 - 8 units >350 - 10 units isosorbide mononitrate ER 30 mg See Protocol PO DAILY lancets (FreeStyle Lancets) Test four times a day or as directed. lancets (FreeStyle Lancets) Test 3 times per day nifedipine ER 30 mg See Protocol PO DAILY pen needle, diabetic Use four times a day or as directed. pravastatin 40 mg PO BEDTIME Tobacco use date assessed: 02/05/24 Fall risk assessment: 2 + Falls in past year Last assessed Fall Risk: 02/19/24 Dental Screening Dental Screen Date: 02/19/24 Did you have a dental visit in the last 12 months?: Yes Did you have a dental problem in the last 6 months where you did not have access to dental care?: No Was dental information given to patient?: Patient has dentist HPI HPI Comments History of Present Illness Details Patient is a 73-year-old female in today following an inpatient [facility] admission. She is a 73 yo female with a PMH of gout, HTN, DM type 2, Lower leg edema bilaterally, chronic kidney disease. She was originally admitted to the hospital for orthopnea, and wheezing. Patient was found have acute kidney injury. Patient was taken off amlodipine and nathaniel/arb due to peripheral edema and acute kidney injury. While in the hospital jde developer placed patient on 30 mg isosorbide mononitrate ER. Patient recently had workup with theoretical physicist who emmie labs, and will restart patient on valsartan pending lab results. Patient also recommended to restart on Jardiance for blood sugar control, though cost may be prohibitive. Patient had recent teaching session with diabetic nurse to go over proper diabetic diet and the importance of keeping blood sugar measurements in control. In addition, patient has been discharged in educated how to use glucometer to measure blood sugar properly. She is currently taking 30 units of Lantus, and insulin lispro on a sliding scale. Patient may benefit from freestyle Saqib continuous glucose monitor. Patient is unable to take metformin at this time due to chronic kidney disease. The appointment today patient is accompanied by her daughter. She states that she is feeling much better. Blood pressure is still elevated at the appointment today however patient states that she has not started taking the carvedilol yet, and is still waiting to hear from theoretical physicist on valsartan. She also states that her sugars have been in better control since utilizing insulin. Patient has been instructed to keep a record of values at home. We have discussed the potential to start freestyle Saqib for continuous glucose monitoring, patient would like to hold off on that at this time and revisit in the next couple of months as she is just getting comfortable with her new routine. Will also try to utilize PA to get insurance coverage for Jardiance is at would be beneficial. Patient has denied polyuria, polydipsia at this time Patient has podiatry consult and needs to make appointment. Patient also will get referral to Ophthalmology. She is denying incidences of shortness of breath, dizziness, nausea, vomiting, headache, diarrhea. . [facility] Medical History Cataract Hypertension Gout Surgical History History of cholecystectomy H/O: hysterectomy Social History Household Members: Family Housing: Apartment Do you presently have visiting nurse or other home services: No Comment: refusing alarms Patient Tobacco Use Status: Never used Tobacco Second Hand Smoke Exposure: No service: No Current occupational status: retired Questionnaire Thrive Questionnaire Date Thrive assessed: 02/07/24 LORA-7 AMB Questionnaire LORA-7 Date LORA - 7 assessed: 02/05/24 Source: Developed by Drs. Fermin Bynum, Evelyn Sanchez, Gabo Alamo and colleagues, with an educational rubina from [employer]. Review of Systems Const All systems reviewed & are unremarkable except as noted in HPI and below Denies chills and Denies fever(s) Eyes Denies blurry vision and Denies diplopia Card Denies chest pain and Denies dyspnea Resp Denies dyspnea Neuro Denies Sensory deficit (Neuro) Physical exam (Primary Care) Vital Signs: Last Vital Signs Pulse 88 02/19/24 12:23 BP 152/82 H 02/19/24 12:23 Pulse Ox 98 02/19/24 12:23 Oxygen Delivery Method Room Air 02/19/24 12:23 Care Plan Goal for BP management: Patient will restart carvedilol and potential valsartan. BMI result Body Mass Index 33.2 Tobacco/Smoking Status: Tobacco use Status Tobacco use date assessed 02/05/24 02/19/24 12:25 Patient Tobacco Use Status Never used Tobacco 02/19/24 12:25 Thrive Assessment: Date of Thrive Assessment Date Thrive assessed 02/07/24 02/19/24 12:25 Const General: cooperative and no acute distress Orientation/consciousness: patient oriented x3 HENMT Head: Yes normal to inspection Eyes Pupils: Equal, round and reactive pupils present EOM: EOMs intact bilaterally Direct Ophthalmoscopy: normal light reflex and no photophobia Neck Neck: Yes normal visual inspection, Yes full ROM and Yes no lymphadenopathy Chest Chest palpation & inspection: normal inspection of the chest Resp Effort & Inspection: normal respiratory effort Auscultation: clear to auscultation bilaterally Cardio Rate: regular rate Rhythm: regular rhythm GI Inspection: Yes normal to inspection Skin Nails: no pitting Neuro General: patient oriented x3 and CN's II-XI intact bilaterally Cranial nerves: Yes Equal, round and reactive pupils present Sensory Exam: No Sensory deficit (Neuro) Extrem General: Yes edema (scant Lower extremity. ) Psych Thought process: Normal thought process present Thought content: Normal thought content present Insight: Good insight present (Psych) Judgement: Good judgement present (Psych) Assessment and Plan Assessment & Plan (1) Uncontrolled type 2 diabetes mellitus with hyperglycemia: Comment: Will get pre authorization for patient to start Jardiance. Patient is unable to take metformin due to kidney disease. Patient will continue to control blood sugar levels with diet control and insulin. Patient will record blood sugar levels at home. Will pursue [employer] saqib at next visit. Code(s): E11.65 - Type 2 diabetes mellitus with hyperglycemia (2) Acute kidney injury superimposed on chronic kidney disease: Comment: Patient will continue to follow up with nephrology. Will continue to control blood sugar levels. Code(s): N17.9 - Acute kidney failure, unspecified; N18.9 - Chronic kidney disease, unspecified (3) Hypertension: Comment: Patient restarting carvedilol and valsartan. Will keep BP measurements at home and record them. Code(s): I10 - Essential (primary) hypertension Qualifiers: Hypertension type: unspecified Qualified Code(s): I10 - Essential (primary) hypertension Plan Follow up on 2 months. Orders: Referrals Ophthalmology Referral E11.65 - Type 2 diabetes mellitus with hyperglycemia Medications: New empagliflozin (Jardiance) 10 mg PO DAILY 90 tabs 0RF Coding Level of Care Code Est Pt Level 4 (51232) Diagnoses Uncontrolled type 2 diabetes mellitus with hyperglycemia E11.65 Acute kidney injury superimposed on chronic kidney disease N17.9; N18.9 Hypertension, unspecified type I10 Hypertension type: unspecified Time Spent (min) 35
== END 2024-02-19 14:06 | disposition home or self-care (01) ==
PROVIDERS: PCP Nurse Practitioner Primary Care; Visit Provider Nurse Practitioner Primary Care
DX: I12.9 Hypertensive chronic kidney disease with stage 1 through stage 4 chronic kidney disease, or unspecified chronic kidney disease (principal); E11.65 Type 2 diabetes mellitus with hyperglycemia; N17.9 Acute kidney failure, unspecified; N18.9 Chronic kidney disease, unspecified
CPT/HCPCS: 99214

== ENCOUNTER 2024-03-01 11:09 | Inpatient (IN) | payer MEDICARE, SELFPAY ==
[2024-03-01] VITALS (7 sets, daily range): BP systolic 119–165; BP diastolic 68–114; PULSE 62–75; RESP 14–20; TEMP 36.1–36.6; O2SAT 96–98; BMI 33.6
--- NOTE | ~2024-03-01 | MR_ITS ---
EXAMINATION: MR BRAIN WITHOUT CONTRAST CLINICAL INFORMATION: Left-sided weakness. Ataxia. Rule out stroke. COMPARISON: Head CT dated 03/01/2024. TECHNIQUE: Multiplanar, multisequence imaging of the brain was performed without contrast. FINDINGS: There are multifocal areas of restricted diffusion in the high paramedian right frontoparietal lobes HELENA vascular territory. No hemorrhagic conversion of the infarct evident on the gradient refocused acquisition. The craniovertebral junction, marrow signal, and midline structures are normal. The ventricles are normal in size. Nonspecific mild scattered white matter signal changes may be due to chronic microangiopathy. There is a chronic lacunar infarct in the left basal ganglia. Small suspected subdural hygromas measuring up to 0.7 cm in short axis dimension visible in the posterior fossa around the cerebellar hemispheres. The brainstem and cerebellum are otherwise normal. There is absence of the normal expected flow-void of the right vertebral artery at the junction of the V3/V4 segments. The remaining major intracranial flow voids at the level of the north fork of T[place] are preserved. The dural venous sinus flow voids are maintained. The mastoid air cells are well aerated. There is mild mucosal thickening in the ethmoid and maxillary sinuses. MR/MR head/brain wo con IMPRESSION: Acute right HELENA territorial infarction superior to the level of the lateral ventricles without hemorrhagic transformation, significant mass effect, or midline shift. Absence of the normal vertebral artery flow void at the craniocervical junction, which may be due to partial occlusive changes or slow flow from an underlying hemodynamically significant stenosis, otherwise not well assessed.
--- NOTE | ~2024-03-01 | US_ITS ---
EXAMINATION: US EXTRACRANIAL CAROTID DUPLEX, BILATERAL CLINICAL INFORMATION: Stroke COMPARISON: None available. TECHNIQUE: Real-time ultrasound and Doppler techniques (integrating B-mode 2-D vascular images, Doppler spectral analysis and color-flow Doppler imaging) were utilized to interrogate the extracranial carotid arteries, the vertebral arteries and proximal subclavian arteries bilaterally. The degree of stenosis is determined by criteria similar to NASCET. FINDINGS: Right Side: 1. There is mild calcified and noncalcified atherosclerotic plaque seen in the bifurcation/proximal ICA region. 2. The common carotid artery PSV proximally is 69.6 cm/s and distally 69.8 cm/s. 3. The proximal internal carotid artery velocities are 94.1 cm/s systolic and 17.2 cm/s diastolic. 4. The proximal external carotid artery PSV is 226 cm/s. 5. The vertebral artery shows antegrade flow. 6. The subclavian artery waveforms are normal. Left Side: 1. There is moderate irregular, noncalcified atherosclerotic plaque seen in the bifurcation/proximal ICA region. 2. The common carotid artery PSV proximally is 127 cm/s and distally 95.3 cm/s. 3. The proximal internal carotid artery velocities are 60.4 cm/s systolic and 18.2 cm/s diastolic. 4. The proximal external carotid artery PSV is 150 cm/s. 5. The vertebral artery shows antegrade flow. 6. The subclavian artery waveforms are normal. US/US carotid duplex BI IMPRESSION: 1. RIGHT: Minimal, non-hemodynamically significant stenosis of the proximal right internal carotid artery corresponding to a 0-49% stenosis by velocity criteria. Scattered calcified and noncalcified plaque. 2. LEFT: Minimal, non-hemodynamically significant stenosis of the proximal left internal carotid artery corresponding to a 0-49% stenosis by velocity criteria. Moderate noncalcified plaque
--- NOTE | ~2024-03-01 | CT_ITS ---
EXAMINATION: CT HEAD WITHOUT CONTRAST CLINICAL INFORMATION: Headache. Left leg weakness. COMPARISON: None available. TECHNIQUE: Contiguous axial imaging was performed from the skull base to vertex without intravenous administration of contrast. This CT examination was performed using dose optimization techniques as appropriate, variously including the following: *Automated exposure control *Adjustment of mA and/or kV according to patient size (this includes techniques or standardized protocols for targeted exams where dose is matched to indication/reason for exam; i.e. extremities or head) *Use of iterative reconstruction technique DLP: 618 mGy-cm FINDINGS: There is no evidence of an extra-axial collection. There is no evidence of intra or extra-axial hemorrhage. The ventricles and extra-axial CSF spaces are appropriate. There is nonspecific periventricular white matter disease. There may be left basal ganglia lacunar infarcts. No mass or mass effect is seen. Review of bone windows is normal. No skull fracture. Visualized paranasal sinuses, mastoid air cells and middle ears are clear. CT/CT head/brain wo IV con IMPRESSION: Mild nonspecific periventricular white matter disease and question left basal ganglia lacunar infarcts.
--- NOTE | ~2024-03-01 | XR_ITS ---
EXAMINATION: XR HIP, LEFT CLINICAL INFORMATION: Pain COMPARISON: None available. TECHNIQUE: Two views of the left hip. One view of the pelvis FINDINGS: Bone alignment is normal. No fracture or dislocation. Normal hip joint spaces. Bones of the pelvis are normal. Degenerative changes of the visualized lower lumbar spine. Faint soft tissue calcification projects lateral to the left iliac bone. This may represent soft tissue calcification in the buttock. /Be related to injection granuloma. Clinical correlation recommended. Mild atherosclerotic disease. XR/XR hip LT w PEL1V IMPRESSION: 1. Normal left hip. 2. Degenerative changes of the visualized lower lumbar spine. 3. Soft tissue calcification lateral to the left iliac bone and superior lateral acetabulum. This may represent soft tissue calcification in the buttocks/injection granuloma. Clinical correlation recommended.
--- NOTE | 2024-03-01 11:22 | PC.NURSE ---
Patient reports unable to bend or lift left leg, however patient bending left leg in bed and able to lift leg off bed and push foot toward and back. Denies pain or discomfort
--- NOTE | 2024-03-01 11:39 | ECG_ITS ---
Test Reason : NUMBNESS Blood Pressure : / mmHG Vent. Rate : 071 BPM Atrial Rate : 071 BPM P-R Int : 202 ms QRS Dur : 080 ms QT Int : 364 ms P-R-T Axes : 048 -10 057 degrees QTc Int : 395 ms Normal sinus rhythm Septal infarct , age undetermined Abnormal ECG When compared with ECG of 06-FEB-2024 02:35, Lateral T wave inversions improved Referred By: Abeba Bob Electronically Signed By:Sergo Adorno
--- NOTE | 2024-03-01 11:40 | ED_ITS ---
HPI - Neuro Symptoms/Deficit General Chief Complaint: Weakness Stated Complaint: L LEG/KNEE WEAK,NO PAIN,NON WT BEARING PER EMS Time Seen by Provider: 03/01/24 11:26 Source: patient, family and old records reviewed Mode of arrival: EMS Limitations: no limitations History of Present Illness HPI Narrative: 73 yo female with PMH of HTN, DM, HTN, CHF, CKD, HLD not on thinners comes in after getting up this AM and everything was fine ate breakfast then did her medications was tired and took a nap around 7am woke up at 10am and her left leg wouldn't work and she had a hard time walking like she was unable to walk and slumping over and they couldn't get her to use the toilet correctly. Daughter and her note recent atraumatic headache for 5 days. Last known well 7am. Her carvedilol was recently decreased from 25mg to 12.5mg daily last week. Daughter notes last known well was at 7am today. Patient notes she has pain in hip when she walk but just a little bit and that her leg just wont work the way she wants. The patient can move and lift leg and bend the knee when laying down it seems to be issue with walking Onset (ago): hour(s) (woke up with symptoms at 10am) Last Observed Normal: 07:00 Timing confirmed by: family member Location: left leg and other (difficulty walking) History of same: No Severity: moderate Quality: weak and constant Relieving factors: none Exacerbating factors: other (movement) Context: sudden onset On Anticoagulants: No Associated symptoms: denies other symptoms Treatments Prior to Arrival: none Related Data Home Medications ?Medication ?Instructions ?Recorded ?Confirmed acetaminophen 500 mg tablet 500 mg PO DAILY PRN Pain 02/06/24 02/19/24 fenofibrate 160 mg tablet 160 mg PO DAILY 02/06/24 02/19/24 pravastatin 40 mg tablet 40 mg PO BEDTIME 02/06/24 02/19/24 insulin lispro 100 unit/mL 1 sliding scale dose subcut QIDACHS 03/01/24 03/01/24 subcutaneous pen (Humalog KwikPen (U-100) Insulin) metformin 850 mg tablet 850 mg PO BID 03/01/24 Previous Rx's ?Medication ?Instructions ?Recorded lancets 28 gauge (FreeStyle #300 ea 02/06/24 Lancets) blood-glucose meter (FreeStyle #1 ea 02/07/24 Lite Meter kit) blood sugar diagnostic (FreeStyle #100 ea 02/13/24 Lite Strips) blood-glucose meter (FreeStyle #1 ea 02/13/24 Lite Meter kit) insulin glargine 100 unit/mL (3 30 unit (0.3 mL) subcut DAILY #15 02/13/24 mL) subcutaneous pen (Lantus mL Solostar U-100 Insulin) isosorbide mononitrate 30 mg 30 mg PO DAILY #30 tabs 02/13/24 tablet,extended release 24 hr lancets 28 gauge (FreeStyle #100 ea 02/13/24 Lancets) nifedipine 30 mg tablet,extended 30 mg PO DAILY #30 tabs 02/13/24 release 24 hr pen needle, diabetic 32 gauge x #100 ea 02/13/2410/31 blood sugar diagnostic (FreeStyle #100 ea 02/14/24 Lite Strips) carvedilol 12.5 mg tablet 12.5 mg PO BID #60 tabs 02/18/24 dapagliflozin propanediol 5 mg 5 mg PO DAILY #30 tabs 02/25/24 tablet (Farxiga) Allergies Allergy/AdvReac Type Severity Reaction Status Date / Time Penicillins [PENICILLINS] Allergy Unknown Rash Verified 03/01/24 11:20 lactose AdvReac Mild Unknown Verified 03/01/24 11:20 shellfish Allergy Mild Unknown Uncoded 03/01/24 11:20 Review of Systems 2 Review of Systems: Constitutional : No Fever, No Chills, No Fatigue ENT/Mouth : No sore throat, No Rhinorrhea Eyes: No Eye Pain, No Swelling, No Redness Cardiovascular : No Chest Pain, No SOB, No Dyspnea on Exertion Respiratory : No Cough, No Sputum Gastrointestinal : No Nausea, No Vomiting, No Diarrhea, No abdominal Pain Genitourinary : No Dysuria, No Urinary Frequency, No Hematuria, Musculoskeletal : No joint pain, No Myalgias, No Joint Swelling Skin : No Skin Lesions, No rash Neuro : pos Weakness, No Numbness, pos Dizziness, positive Headache Psych : No Anxiety/Panic, No Depression Heme/Lymph: No Bruising, No Bleeding,No Lymphadenopathy Endocrine : No Polyuria, No Polydipsia All other systems reviewed and are negative PMFSH Past Medical History Medical History SOB (shortness of breath) Gout of big toe Elevated troponin Bilateral wheezing Leg edema Increasing shortness of breath 2+ pitting edema Cataract Hypertension Gout Surgical History History of cholecystectomy H/O: hysterectomy Social History Social History Household Members: Family Housing: Apartment Do you presently have visiting nurse or other home services: No Alcohol intake: former Comment: refusing alarms Patient Tobacco Use Status: Never used Tobacco Smoked in Last 30 Days: No Second Hand Smoke Exposure: No Use of substances other than those prescribed or required for medical reasons: No Advance Directives: No Advance Directives Information Provided: No service: No Current occupational status: retired Physical Exam 2 Vital Signs: Vital Signs: Last Vital Signs Pulse 63 03/01/24 15:05 Resp 18 03/01/24 15:05 BP 158/88 H 03/01/24 15:05 Pulse Ox 98 03/01/24 15:05 O2 Del Method Room Air 03/01/24 15:05 BMI result Body Mass Index 33.6 Appearance: Alert. Oriented X3. No acute distress. Eyes: Pupils equal, round and reactive to light. ENT: Pharynx normal. Neck: Normal inspection. Neck supple. CVS: Normal heart rate and rhythm. Pulses normal. Respiratory: No respiratory distress. Breath sounds normal. Abdomen: Soft and nontender. Skin: Skin warm and dry. Normal skin color. Normal skin turgor. Extremities: No lower extremity edema. No calf ttp Neuro: Oriented X 3. No motor deficit. No sensory deficit. when laying down can full dorsi and plantar flex the foot and the knee and the hip can raise it off the bed when asked to walk she is shuffling and off balance and appears she is going to fall. She has no other deficits but her gait is off and states she just cannot get her leg to walk correctly has mild pain with walking no wincing. She is very off balance when attempting to stand Medical Decision Making Medical Decision Making MDM Narrative: 73 yo female with PMH of HTN, DM, HTN, CHF, CKD, HLD not on thinners here with c/o L leg just not working and not being able to walk on left leg she has mild pain but is not wincing on exam and watching her walk is unusual when she lays down she has normal neuro exam but when she is walking it seems like she cannot get the leg to move at the hip and she almost fell. She has had headache recently as well. At this time labs, EKG, CT head - last known well 7am would be out of window for TNK and she has CKD cannot get CTA. Differential Diagnosis Differential Diagnoses: The differential diagnosis associated with the presentation includes hip pain, fracture, lyte abnormality, stroke, TIA, mass Admission/Observation Consideration of admission/observation: Escalation of care including admission/observation considered still cannot ambulate she is trying but it seems that she cannot get her left leg to move denies pain Consult Healthcare Provider Management of the patient was discussed with: Hospitalist (will admit) Lab Data MDM Lab Attestation statement: I reviewed the patient's lab results. 03/01/24 11:53 03/01/24 14:40 Labs: Lab Results 03/01/24 03/01/24 03/01/24 Range/Units 11:53 14:16 14:40 WBC 6.7 (4.8-10.8) X10*3/uL RBC 3.01 L (4.20-5.50) X10*6/uL Hgb 8.7 L (12.0-16.0) g/dl Hct 26.9 L (37.0-47.0) % MCV 89.4 (80.0-98.0) fL MCH 28.9 (27.0-33.0) pg MCHC 32.3 (31.0-35.0) g/dl RDW 14.6 (11.0-16.0) % Plt Count 308 (160-400) X10*3/uL MPV 10.1 (9.4-12.3) fL Immature Gran % (Auto) 4.3 H (0.0-0.4) % Neut % (Auto) 49.3 (45-73) % Lymph % (Auto) 25.9 (20-40) % Maury % (Auto) 10.4 (2-11) % Eos % (Auto) 9.7 H (0-4) % Baso % (Auto) 0.4 (0-2) % Lymph # (Auto) 1.7 (1.2-4.9) X10*3/uL Maury # (Auto) 0.7 (0.1-1.2) X10*3/uL Eos # (Auto) 0.7 H (0.0-0.4) X10*3/uL Baso # (Auto) 0.0 (0.0-0.2) X10*3/uL Abs Immat Gran (auto) 0.29 H (0.00-0.03) X10*3/uL Absolute Neuts (auto) 3.3 (2.0-8.3) x10*3/uL Absolute Nucleated RBC 0.000 (0.0-0.012) X10*3/uL Nucleated RBC % (auto) 0.0 (0.0-0.2) /100WBC PT 12.3 (11.1-13.3) SEC INR 1.0 (0.9-1.1) Sodium 141 (135-145) mmol/L Potassium 4.7 (3.3-5.1) mmol/L Chloride 113 H (96-108) mmol/L Carbon Dioxide 19 L (22-29) mmol/L Anion Gap 14 (12-20) BUN 40 H (9-16) mg/dL Creatinine 2.25 H (0.5-1.4) mg/dL Estim Creat Clear Calc 21.2 Estimated GFR 21 Random Glucose 80 (60-115) mg/dL Calcium 10.2 D (8.4-10.2) mg/dL Magnesium 2.0 (1.6-2.6) mg/dL Total Bilirubin 0.2 (0.0-1.0) mg/dL Direct Bilirubin < 0.2 (0.0-0.5) mg/dL AST 11 (5-31) U/L ALT 9 (0-31) U/L Alkaline Phosphatase 66 (39-117) U/L Troponin I High Sens 34.8 H (<3.5-17.0) ng/L B-Natriuretic Peptide 555 H (<100) pg/mL Total Protein 7.4 (6.5-8.0) g/dL Albumin 3.6 (3.5-5.0) g/dL Lipase 32 (8-78) U/L Stool Occult Blood NEGATIVE (NEGATIVE) Independent Interpretation I performed an independent interpretation of an: EKG, Plain X-Ray (no fracture) and CT Scan (no ICH, hx of strokes) Interpretation: Rate: 71 Rhythm: NSR with 1st degree AVB [place]: left Normal P waves. 1st degree AVB. Normal QRS complex. ST T wave : no KELI inveerted t waves aVL qTC: 395 prior studies: no acute ischemia The study has been interpreted contemporaneously by me. . Radiology Impression Discussion of test interpretation with radiology: I have reviewed the radiologist's reading. Independent Historian Clinical information obtained from an independent historian. History obtained from or confirmed by: Other (daughter) External Record Review External record reviewed: Inpatient record NIH Stroke Scale Internal: Initial- Upon Arrival Level of Consciousness: Alert Level of Consciousness Questions: Answers both questions correctly Level of Consciousness Commands: Performs both tasks correctly Best Gaze: Normal Visual: No visual loss Facial Palsy: Normal Motor Arm (Right): No drift Motor Arm (Left): No drift Motor Leg (Right): No drift Motor Leg (Left): No drift Limb Ataxia: Present in one limb Sensory: Normal Best Language: No aphasia Dysarthia: Normal Extinction and Inattention: No abnormality Score: 1 Discharge Plan Discharge Clinical Impression: Difficulty walking, Left leg weakness Patient Disposition: Admitted As Inpatient
--- NOTE | 2024-03-01 11:40 | PC.NURSE ---
Daughter at bedside reports last known well was 7am this morning. States patient has been complaining of headache for days that have been relieved by tylenol. Provider attemtped to stand patient however patient with poor balance and was seated back in bed
[2024-03-01 11:58] LABS: MANUAL DIFF FLAG NO
[2024-03-01 12:01] LABS: Basophils Percent Auto 0.4 % (0-2); Eosinophils Absolute Auto 0.7 X10*3/uL (0.0-0.4); Eosinophils Percent Auto 9.7 % (0-4); Hematocrit 26.9 % (37.0-47.0); Hemoglobin 8.7 g/dl (12.0-16.0); Imm Gran Abs Auto 0.29 X10*3/uL (0.00-0.03); Imm Gran Pct Auto 4.3 % (0.0-0.4); Lymphocytes Absolute Auto 1.7 X10*3/uL (1.2-4.9); Lymphocytes Percent Auto 25.9 % (20-40); Mean Corpuscular HGB Conc 32.3 g/dl (31.0-35.0); Mean Corpuscular Hemoglobin 28.9 pg (27.0-33.0); Mean Corpuscular Volume 89.4 fL (80.0-98.0); Mean Platelet Volume 10.1 fL (9.4-12.3); Monocytes Absolute Auto 0.7 X10*3/uL (0.1-1.2); Monocytes Percent Auto 10.4 % (2-11); Neutrophils Absolute Auto 3.3 x10*3/uL (2.0-8.3); Neutrophils Percent Auto 49.3 % (45-73); Platelet Count 308 X10*3/uL (160-400); Red Blood Count 3.01 X10*6/uL (4.20-5.50); Red Cell Distribution Width 14.6 % (11.0-16.0); White Blood Count 6.7 X10*3/uL (4.8-10.8)
[2024-03-01 12:07] LABS: Prothrombin Time 12.3 SEC (11.1-13.3)
[2024-03-01 12:35] LABS: B Type Natriuretic Peptide 555 pg/mL (<100); Troponin-I High Sensitivity 34.8 ng/L (<3.5-17.0)
[2024-03-01 14:20] LABS: OBS Int Ctl Valid YES; OBS1 NEGATIVE (NEGATIVE)
--- NOTE | 2024-03-01 14:49 | P.HPHOSP_ITS ---
<Statement entered by Concepción Irby MD - 03/01/24 18:16> the patient was seen and evaluated with ANGEL Valladares. I agree with her note, assessment and plan with the following. Rest of evaluations by PA note. History of Present Illness Date of Service: 03/01/24 Attending physician on admission: Concepción Irby Chief Complaint: Off balance, left leg weakness This is a 73-year-old female with multiple medical problems and recent admission for CHF/acute bronchitis who was brought to the emergency department with difficulty ambulating. Patient was in her usual state of health this morning when she woke up and was able to ambulate independently. Around 10:00 o'clock her grandson no to that she was unable to get up from the chair. Her daughter came home from work and had to assist her to the bathroom. She kept leaning to 1 side or directly backward any time they tried to stand her up or have her walk. In the emergency department her brain CT showed nonspecific changes and question left basal ganglia lacunar infarcts. CTA was not obtained due to history of renal disease. A hip and pelvis x-ray was obtained and is pending at the time of admission. When they attempted to ambulate the patient in the emergency department she was unable to initiate movement. She denies any pain or recent falls or trauma. She denies any vision changes, difficulty swallowing, weakness in her arms. She denies any nausea or vomiting, no dizziness. She reports ringing in her ears although she states this has been present for years. She has reported a posterior headache for the past several days. She has not previously had any issues similar to this in the past. Her CBC showed slight decrease in her H/H from previous, stool occult blood was obtained and was negative. Patient denies any change in bowel habits. Review of Systems 2 Review of Systems: Yes all other systems are reviewed and are negative Constitutional: Constitutional: Denies chills and Denies fever(s) ENT: Denies dizziness Cardiovascular: Cardiovascular: Denies chest pain Respiratory: Respiratory: Denies cough Gastrointestinal: Gastrointestinal: Denies abdominal pain, Denies nausea and Denies vomiting Neurologic: Denies dizziness [facility] Medical History SOB (shortness of breath) Gout of big toe Elevated troponin Bilateral wheezing Leg edema Increasing shortness of breath 2+ pitting edema Cataract Hypertension Gout Surgical History History of cholecystectomy H/O: hysterectomy Social History Household Members: Children Housing: Apartment Do you presently have visiting nurse or other home services: No Alcohol intake: former Comment: refusing alarms Patient Tobacco Use Status: Never used Tobacco Smoked in Last 30 Days: No Second Hand Smoke Exposure: No Use of substances other than those prescribed or required for medical reasons: No Currently Displaying Signs/Symptoms of Drug Intoxication Withdrawal: No Any prior treatment program specific to substance use: No Have you been hit, kicked, punched, or otherwise hurt by someone within the past year? If so, by whom?: No Do you feel safe in your current relationship?: No Is there a partner from a previous relationship who is making you feel unsafe now?: No Are you made to feel afraid or neglected: No Advance Directives: No Advance Directives Information Provided: No Recently lost weight without trying: Unsure How much weight loss: 2-13 pounds Eating poorly because of decreased appetite: No Nutrition screen score: 3 Nutrition Risks: On aspiration precautions Patient : No : No Poor oral hygiene: No service: No Current occupational status: retired [employer] Allergies Allergy/AdvReac Type Severity Reaction Status Date / Time Penicillins [PENICILLINS] Allergy Unknown Rash Verified 03/01/24 11:20 lactose AdvReac Mild Unknown Verified 03/01/24 11:20 shellfish Allergy Mild Unknown Uncoded 03/01/24 11:20 Home Medications ?Medication ?Instructions ?Recorded ?Confirmed ?Last Taken ?Type acetaminophen 500 mg tablet 500 mg PO DAILY PRN Pain 02/06/24 03/01/24 Unknown History fenofibrate 160 mg tablet 160 mg PO BEDTIME 02/06/24 03/01/24 02/05/24 History pravastatin 40 mg tablet 40 mg PO BEDTIME 02/06/24 03/01/24 02/05/24 History insulin lispro 100 unit/mL 1 sliding scale dose subcut QIDACHS 03/01/24 03/01/24 Unknown History subcutaneous pen (Humalog KwikPen (U-100) Insulin) Physical Exam 2 Vital Signs and Narrative: Vital Signs: Last Vital Signs Pulse 72 03/01/24 11:18 Resp 18 03/01/24 11:18 BP 144/72 H 03/01/24 11:18 Pulse Ox 96 03/01/24 11:18 O2 Del Method Room Air 03/01/24 11:18 BMI result Body Mass Index 33.6 Const: General: cooperative, comfortable, no acute distress, alert and awake Nutritional Appearance: overweight Orientation/consciousness: patient oriented x3 Resp: Effort & Inspection: normal respiratory effort, able to speak in complete sentences, no respiratory distress and no use of accessory muscles Cardio: Rate: regular rate GI: Inspection: No distended Palpation (GI): Soft to palpation and nontender Neuro: Other: speech normal; able to move all 4 extremities when seated and lying down; hand grasp equal, face symmetrical, tongue midline; no nystagmus apprectiated. pupils equal and reactive. strength equal b/l; when seated on the side of the bed, patient falls back and to the left without support General: patient oriented x3 Coordination: [id number]-[id number]-[id number] test normal and [id number] test normal Extrem: Other: 2+ pitting edema b/l Results Labs 03/01/24 11:53 03/01/24 14:40 Labs: Laboratory Results - last 24 hr 03/01/24 03/01/24 11:53 14:16 MCV 89.4 MCH 28.9 MCHC 32.3 RDW 14.6 Plt Count 308 MPV 10.1 Immature Gran % (Auto) 4.3 H Neut % (Auto) 49.3 Lymph % (Auto) 25.9 Weston % (Auto) 10.4 Eos % (Auto) 9.7 H Baso % (Auto) 0.4 Lymph # (Auto) 1.7 Weston # (Auto) 0.7 Eos # (Auto) 0.7 H Baso # (Auto) 0.0 Abs Immat Gran (auto) 0.29 H Absolute Neuts (auto) 3.3 Absolute Nucleated RBC 0.000 Nucleated RBC % (auto) 0.0 PT 12.3 INR 1.0 Troponin I High Sens 34.8 H B-Natriuretic Peptide 555 H Stool Occult Blood NEGATIVE Imaging Radiologist's Impressions: Impressions Head CT 03/01/24 12:16 IMPRESSION: Mild nonspecific periventricular white matter disease and question left basal ganglia lacunar infarcts. Assessment and Plan (1) Left leg weakness: Status: Acute (2) Difficulty walking: Status: Acute Plan This is a 73-year-old female with history of hypertension, diabetes, CKD4, HLD, gout, anemia recently moved from [facility], recent admission for respiratory failure due to acute bronchitis due to human metapneumovirus and diastolic CHF who presents to the emergency department with sudden onset difficulty ambulating difficulty ambulating/ataxia pt unable to ambulate unassisted. this is an acute change denies pain, recent trauma; hip/pelvis x-ray pending ?cerebellar stroke due to ataxia and headache. no other focal deficits noted. brain CT negative, unable to have CTA due to CKD will consult neurology, will defer further workup/imaging to neuro PT/OT eval, check lipid profile DM SSI, POCs, ADA diet joyce start 80% home dose of lantus, up titrate as needed elevated trop lower then previous no chest pain will trend HFpEF leg edema, elevated BNP no hypoxia or respiratory symptoms keep legs elevated low sodium diet prescribed farxiga but hasn't started yet Diuretics held on discharge from previous admission due to renal disease CKD4 SCr at baseline Normocytic anemia Heme-negative Likely due to chronic disease Follow CBC HLD Continue statin, fenofibrate HTN Continue carvedilol nifedipine, Imdur dvt ppx - mechanical due to anemia HCP - daughter Code status - full code Quality Stroke Does the patient have a stroke diagnosis?: No VTE Prior VTE?: No VTE Risk Level:: Medical - moderate - high VTE Device Contraindication: N/A - Device Ordered VTE Drug Contraindication: Treatment Not Indicated
--- NOTE | 2024-03-01 15:07 | PC.NURSE ---
BS 65 provider at [facility] patient swallowing sips of juice reports feeling better
[2024-03-01 15:08] LABS: Alanine Aminotransferase 9 U/L (0-31); Albumin Level 3.6 g/dL (3.5-5.0); Alkaline Phosphatase 66 U/L (39-117); Anion Gap 14 (12-20); Aspartate Amino Transferase 11 U/L (5-31); Bilirubin Direct < 0.2 mg/dL (0.0-0.5); Bilirubin Total 0.2 mg/dL (0.0-1.0); Blood Urea Nitrogen 40 mg/dL (9-16); Calcium 10.2 mg/dL (8.4-10.2); Carbon Dioxide 19 mmol/L (22-29); Chloride 113 mmol/L (96-108); Creatinine Clr Calc Pharmacy 21.2; Estimated Glomerular Filt Rate 21; Glucose Random 80 mg/dL (60-115); Lipase 32 U/L (8-78); Potassium 4.7 mmol/L (3.3-5.1); Sodium 141 mmol/L (135-145); Total Protein 7.4 g/dL (6.5-8.0)
[2024-03-01 15:39] LABS: Glucose, Whole Blood 123 mg/dL (60-115)
--- NOTE | 2024-03-01 15:50 | MHC.EDTECH ---
Patient changed and repositioned
[2024-03-01] MEDS: Aspirin Enteric Coated 81 MG TABLET.DR PO (15:55)
--- NOTE | 2024-03-01 16:03 | PHA.MEDREC ---
Pharmacy Consult ? Medication Reconciliation Pharmacy has completed the medication reconciliation. Patient recently prescribed Farxiga 5 mg daily, but has not started the medication yet. Left on home list as requested by ANGEL Junior.
[2024-03-01 16:13] LABS: Appearance Urine Clear; Color Urine Yellow; Glucose Urine UA 250 mg/dL (Negative); Leukocyte Esterase Urine Negative (Negative); Nitrite Urine Negative (Negative); UMIC TRIGGER UACC YES; Urine Blood Negative (Negative); Urine Ketones Negative (Negative); Urine Protein 300 (3+) mg/dL (Neg-Trace)
[2024-03-01 16:19] LABS: Bacteria Urine None Seen (None Seen); Hyaline Casts Urine 0-2 /LPF (0-2); RBC Urine 0-2 /HPF (0-2); Squamous Epithelial Cell Urine 0-2 /HPF (0-2); WBC Urine 0-5 /HPF (0-5)
[2024-03-01 16:26] LABS: Troponin-I High Sensitivity 33.7 ng/L (<3.5-17.0)
[2024-03-01 17:02] LABS: Glucose, Whole Blood 63 mg/dL (60-115)
[2024-03-01] MEDS: 0.9 % Sodium Chloride Flush 3 ML SYRINGE IVFLUSH ×2 (17:09→21:16)
--- NOTE | 2024-03-01 18:19 | PC.NURSE ---
Assumed care of patient from ED @ 17:35
[2024-03-01 20:48] LABS: Glucose, Whole Blood 211 mg/dL (60-115)
[2024-03-01] MEDS: Melatonin 3 MG TABLET 6 MG PO (21:14)
[2024-03-01] MEDS: carvediloL 12.5 MG TABLET PO (21:15)
[2024-03-01] MEDS: Fenofibrate 160 MG TABLET PO (21:15)
[2024-03-01] MEDS: Pravastatin Sodium 40 MG TABLET PO (21:15)
[2024-03-01] MEDS: Insulin Lispro 100 UNIT/ML 3 ML VIAL SUBCUT (21:16)
[2024-03-02] VITALS (8 sets, daily range): BP systolic 134–164; BP diastolic 65–78; PULSE 57–67; RESP 20; TEMP 36.1–37.1; O2SAT 95–97
[2024-03-02 07:39] LABS: Cholesterol 151 mg/dL (<200); HDL Cholesterol 32 mg/dL (>40); LDL Cholesterol Calculated 81 mg/dL (<100); Triglycerides 193 mg/dL (<150)
[2024-03-02 08:01] LABS: Glucose, Whole Blood 169 mg/dL (60-115)
[2024-03-02] MEDS: NIFEdipine ER 30 MG TAB.ER.24 PO (08:05)
[2024-03-02] MEDS: Isosorbide Mononitrate 30 MG TAB.ER.24H PO (08:05)
[2024-03-02] MEDS: carvediloL 12.5 MG TABLET PO ×2 (08:05→20:34)
[2024-03-02] MEDS: Insulin Glargine,Hum.rec.anlog 100 UNIT/ML 10 ML VIAL 25 UNIT SUBCUT (08:06)
[2024-03-02] MEDS: Insulin Lispro 100 UNIT/ML 3 ML VIAL SUBCUT ×3 (08:06→16:46)
[2024-03-02] MEDS: 0.9 % Sodium Chloride Flush 3 ML SYRINGE IVFLUSH ×3 (08:06→20:37)
--- NOTE | 2024-03-02 09:27 | PM.NEUROCN ---
History of Present Illness Data of Consult Service Date: 03/02/24 Primary Care Provider: Unknown Physician HPI Reason for consult: Leg weakness 73 years old woman with hypertension who came to hospital with complaints of not able to walk or leg weakness. History was somewhat nonspecific. There was no complaint of any pain, recent trauma, cold or flu-like illness, change in bowel bladder pattern, or speech or language difficulty or arm or hand weakness. When I talked to her this morning she said that her left leg was weak and there was nothing wrong with the right leg. She denied any pain Review of Systems Review of Systems: No recent cold or flu-like illness PMFSH Past Medical History Medical History SOB (shortness of breath) Gout of big toe Elevated troponin Bilateral wheezing Leg edema Increasing shortness of breath 2+ pitting edema Cataract Hypertension Gout Surgical History Surgical History History of cholecystectomy H/O: hysterectomy Social History Social History Household Members: Children Housing: Apartment Do you presently have visiting nurse or other home services: No Alcohol intake: former Comment: refusing alarms Patient Tobacco Use Status: Never used Tobacco Smoked in Last 30 Days: No Second Hand Smoke Exposure: No Use of substances other than those prescribed or required for medical reasons: No Currently Displaying Signs/Symptoms of Drug Intoxication Withdrawal: No Any prior treatment program specific to substance use: No Have you been hit, kicked, punched, or otherwise hurt by someone within the past year? If so, by whom?: No Do you feel safe in your current relationship?: No Is there a partner from a previous relationship who is making you feel unsafe now?: No Are you made to feel afraid or neglected: No Advance Directives: No Advance Directives Information Provided: No Recently lost weight without trying: Unsure How much weight loss: 2-13 pounds Eating poorly because of decreased appetite: No Nutrition screen score: 3 Nutrition Risks: On aspiration precautions Patient : No : No Poor oral hygiene: No service: No Current occupational status: retired Meds Allergies Allergy/AdvReac Type Severity Reaction Status Date / Time Penicillins [PENICILLINS] Allergy Unknown Rash Verified 03/01/24 11:20 lactose AdvReac Mild Unknown Verified 03/01/24 11:20 shellfish Allergy Mild Unknown Uncoded 03/01/24 11:20 Active Medications: Current Medications Acetaminophen (Acetaminophen 325 Mg Tablet) 650 mg PO Q6H PRN PRN Reason: Pain, Mild (Pain Scale 1-3) Carvedilol (Carvedilol 12.5 Mg Tablet) 12.5 mg PO BID [facility]; Protocol Last Admin: 03/02/24 08:05 Dose: 12.5 mg Fenofibrate (Fenofibrate 160 Mg Tablet) 160 mg PO BEDTIME [facility] Last Admin: 03/01/24 21:15 Dose: 160 mg Glucose (Glucose Gel 15 Gm Gel..Gram.) 15 gm PO Q15M PRN; Protocol PRN Reason: per Hypoglycemia Standing Ord. Dextrose (D10) 250 mls @ 750 mls/hr IV Q15M PRN; Protocol PRN Reason: per Hypoglycemia Standing Ord. Insulin Glargine (Insulin Glargine,Hum.Rec.Anlog 100 Unit/Ml 10 Ml Vial) 25 unit SUBCUT DAILY [facility] Last Admin: 03/02/24 08:06 Dose: 25 unit Insulin Human Lispro (Insulin Lispro 100 Unit/Ml 3 Ml Vial) 0 unit SUBCUT QIDACHS [facility]; Protocol Last Admin: 03/02/24 08:06 Dose: 2 unit Isosorbide Mononitrate (Isosorbide Mononitrate 30 Mg Tab.Er.24h) 30 mg PO DAILY [facility]; Protocol Last Admin: 03/02/24 08:05 Dose: 30 mg Melatonin (Melatonin 3 Mg Tablet) 6 mg PO BEDTIME PRN PRN Reason: Insomnia Last Admin: 03/01/24 21:14 Dose: 6 mg Nifedipine (Nifedipine Er 30 Mg Tab.Er.24) 30 mg PO DAILY [facility]; Protocol Last Admin: 03/02/24 08:05 Dose: 30 mg Ondansetron HCl (Ondansetron Hcl 4 Mg/2 Ml Vial) 4 mg IVPUSH Q8H PRN PRN Reason: Nausea and Vomiting Pravastatin Sodium (Pravastatin Sodium 40 Mg Tablet) 40 mg PO BEDTIME [facility] Last Admin: 03/01/24 21:15 Dose: 40 mg Sodium Chloride (0.9 % Sodium Chloride Flush 3 Ml Syringe) 3 ml IVFLUSH QSHIFT [facility] Last Admin: 03/02/24 08:06 Dose: 3 ml Home Medications ?Medication ?Instructions ?Recorded ?Confirmed ?Last Taken ?Type acetaminophen 500 mg tablet 500 mg PO DAILY PRN Pain 02/06/24 03/01/24 Unknown History fenofibrate 160 mg tablet 160 mg PO BEDTIME 02/06/24 03/01/24 02/05/24 History pravastatin 40 mg tablet 40 mg PO BEDTIME 02/06/24 03/01/24 02/05/24 History insulin lispro 100 unit/mL 1 sliding scale dose subcut QIDACHS 03/01/24 03/01/24 Unknown History subcutaneous pen (Humalog KwikPen (U-100) Insulin) Physical Exam Vital Signs: Vital Signs: Last Vital Signs Temp 97.0 F 03/02/24 07:42 Pulse 61 03/02/24 07:42 Resp 20 03/02/24 07:42 BP 142/72 H 03/02/24 07:42 Pulse Ox 96 03/02/24 07:42 O2 Del Method Room Air 03/02/24 07:42 BMI result Body Mass Index 33.6 Neuro: Other: She was alert and awake with normal spontaneity of speech fluency comprehension and affect. Face was symmetrical. Visual thayer are full. There was no pronator drift. She was able to lift her right leg up against gravity and wiggle her toes with right foot. She did not do so with the left leg. Tone was normal in left leg. Plantars were flat. Deep tendon reflexes were trace. Speech was normal. Results Labs 03/01/24 11:53 03/01/24 14:40 Labs: Short CBC 03/01/24 Range/Units 11:53 WBC 6.7 (4.8-10.8) X10*3/uL Hgb 8.7 L (12.0-16.0) g/dl Hct 26.9 L (37.0-47.0) % Plt Count 308 (160-400) X10*3/uL BMP 03/01/24 14:40 Sodium 141 Potassium 4.7 Chloride 113 H Carbon Dioxide 19 L BUN 40 H Creatinine 2.25 H Calcium 10.2 D Liver Function 03/01/24 Range/Units 14:40 Total Bilirubin 0.2 (0.0-1.0) mg/dL Direct Bilirubin < 0.2 (0.0-0.5) mg/dL AST 11 (5-31) U/L ALT 9 (0-31) U/L Alkaline Phosphatase 66 (39-117) U/L Albumin 3.6 (3.5-5.0) g/dL Urine 03/01/24 Range/Units 15:56 Urine Color Yellow Urine Appearance Clear Urine pH 7.0 (5.0-9.0) Ur Specific Downey 1.010 (1.005-1.025) Urine Protein 300 (3+) H (Neg-Trace) mg/dL Urine Glucose (UA) 250 H (Negative) mg/dL Noncontrast head CT revealed a chronic left basal ganglia infarct and mild microvascular ischemic changes bilaterally. EKG revealed sinus rhythm and transthoracic echocardiogram was okay. Assessment and Plan (1) Left leg weakness: Status: Acute Painless left leg weakness with exam not revealing any obvious focal finding other than weakness. Sometime this can happen from a small frontal or anterior cerebral artery area territory stroke. I recommend noncontrast MRI of brain for definition. Otherwise continue blood pressure control and anti-platelet agent with statin Procedures Date of Service Date of Service: 03/02/24
--- NOTE | 2024-03-02 10:40 | HO.PM.IMPN ---
Subjective Subjective Date of Service: 03/02/24 Review of Systems Follow up ataxia, left sided weakness no pain no chest pain, nvd, headache, visual changes Physical Exam Vital Signs: Vital Signs: Last Vital Signs Temp 97.0 F 03/02/24 07:42 Pulse 61 03/02/24 07:42 Resp 20 03/02/24 07:42 BP 142/72 H 03/02/24 07:42 Pulse Ox 96 03/02/24 07:42 O2 Del Method Room Air 03/02/24 07:42 BMI result Body Mass Index 33.6 Appearing in no acute distress lung sounds are clear to auscultation heart regular rate rhythm, clear S1, S2 positive bowel sounds, abdomen is soft, nontender neuro patient is alert x3, no focal deficits Strength LUE 4/5, LLQ 3/5 Objective Data Active Medications Acetaminophen (Acetaminophen 325 Mg Tablet) 650 mg PO Q6H PRN PRN Reason: Pain, Mild (Pain Scale 1-3) Carvedilol (Carvedilol 12.5 Mg Tablet) 12.5 mg PO BID [facility]; Protocol Last Admin: 03/02/24 08:05 Dose: 12.5 mg Documented By: JENIFER Fenofibrate (Fenofibrate 160 Mg Tablet) 160 mg PO BEDTIME [facility] Last Admin: 03/01/24 21:15 Dose: 160 mg Documented By: PATIENCE Glucose (Glucose Gel 15 Gm Gel..Gram.) 15 gm PO Q15M PRN; Protocol PRN Reason: per Hypoglycemia Standing Ord. Dextrose (D10) 250 mls @ 750 mls/hr IV Q15M PRN; Protocol PRN Reason: per Hypoglycemia Standing Ord. Insulin Glargine (Insulin Glargine,Hum.Rec.Anlog 100 Unit/Ml 10 Ml Vial) 25 unit SUBCUT DAILY [facility] Last Admin: 03/02/24 08:06 Dose: 25 unit Documented By: JENIFER Insulin Human Lispro (Insulin Lispro 100 Unit/Ml 3 Ml Vial) 0 unit SUBCUT QIDACHS [facility]; Protocol Last Admin: 03/02/24 08:06 Dose: 2 unit Documented By: JENIFER Isosorbide Mononitrate (Isosorbide Mononitrate 30 Mg Tab.Er.24h) 30 mg PO DAILY [facility]; Protocol Last Admin: 03/02/24 08:05 Dose: 30 mg Documented By: JENIFER Melatonin (Melatonin 3 Mg Tablet) 6 mg PO BEDTIME PRN PRN Reason: Insomnia Last Admin: 03/01/24 21:14 Dose: 6 mg Documented By: PATIENCE Nifedipine (Nifedipine Er 30 Mg Tab.Er.24) 30 mg PO DAILY [facility]; Protocol Last Admin: 03/02/24 08:05 Dose: 30 mg Documented By: JENIFER Ondansetron HCl (Ondansetron Hcl 4 Mg/2 Ml Vial) 4 mg IVPUSH Q8H PRN PRN Reason: Nausea and Vomiting Pravastatin Sodium (Pravastatin Sodium 40 Mg Tablet) 40 mg PO BEDTIME [facility] Last Admin: 03/01/24 21:15 Dose: 40 mg Documented By: PATIENCE Sodium Chloride (0.9 % Sodium Chloride Flush 3 Ml Syringe) 3 ml IVFLUSH QSHIFT [facility] Last Admin: 03/02/24 08:06 Dose: 3 ml Documented By: JENIFER Labs 03/01/24 11:53 03/01/24 14:40 Labs: Laboratory Results - last 24 hr 03/01/24 03/01/24 03/01/24 11:53 14:16 14:40 MCV 89.4 MCH 28.9 MCHC 32.3 RDW 14.6 Plt Count 308 MPV 10.1 Immature Gran % (Auto) 4.3 H Neut % (Auto) 49.3 Lymph % (Auto) 25.9 Dougherty % (Auto) 10.4 Eos % (Auto) 9.7 H Baso % (Auto) 0.4 Lymph # (Auto) 1.7 Dougherty # (Auto) 0.7 Eos # (Auto) 0.7 H Baso # (Auto) 0.0 Abs Immat Gran (auto) 0.29 H Absolute Neuts (auto) 3.3 Absolute Nucleated RBC 0.000 Nucleated RBC % (auto) 0.0 Hold Purple Top PT 12.3 INR 1.0 Anion Gap 14 Estim Creat Clear Calc 21.2 Estimated GFR 21 POC Glucose Random Glucose 80 Calcium 10.2 D Magnesium 2.0 Total Bilirubin 0.2 Direct Bilirubin < 0.2 AST 11 ALT 9 Alkaline Phosphatase 66 Troponin I High Sens 34.8 H B-Natriuretic Peptide 555 H Total Protein 7.4 Albumin 3.6 Triglycerides Cholesterol LDL Cholesterol, Calc HDL Cholesterol Lipase 32 Urine Color Urine Appearance Urine pH Ur Specific [place] Urine Protein Urine Glucose (UA) Urine Ketones Urine Blood Urine Nitrite Ur Leukocyte Esterase Urine RBC Urine WBC Ur Squamous Epith Cells Urine Bacteria Hyaline Casts Stool Occult Blood NEGATIVE 03/01/24 03/01/24 03/01/24 15:04 15:35 15:55 MCV MCH MCHC RDW Plt Count MPV Immature Gran % (Auto) Neut % (Auto) Lymph % (Auto) Dougherty % (Auto) Eos % (Auto) Baso % (Auto) Lymph # (Auto) Dougherty # (Auto) Eos # (Auto) Baso # (Auto) Abs Immat Gran (auto) Absolute Neuts (auto) Absolute Nucleated RBC Nucleated RBC % (auto) Hold Purple Top PT INR Anion Gap Estim Creat Clear Calc Estimated GFR POC Glucose 63 123 H Random Glucose Calcium Magnesium Total Bilirubin Direct Bilirubin AST ALT Alkaline Phosphatase Troponin I High Sens 33.7 H B-Natriuretic Peptide Total Protein Albumin Triglycerides Cholesterol LDL Cholesterol, Calc HDL Cholesterol Lipase Urine Color Urine Appearance Urine pH Ur Specific [place] Urine Protein Urine Glucose (UA) Urine Ketones Urine Blood Urine Nitrite Ur Leukocyte Esterase Urine RBC Urine WBC Ur Squamous Epith Cells Urine Bacteria Hyaline Casts Stool Occult Blood 03/01/24 03/01/24 03/02/24 15:56 20:41 06:17 MCV MCH MCHC RDW Plt Count MPV Immature Gran % (Auto) Neut % (Auto) Lymph % (Auto) Dougherty % (Auto) Eos % (Auto) Baso % (Auto) Lymph # (Auto) Dougherty # (Auto) Eos # (Auto) Baso # (Auto) Abs Immat Gran (auto) Absolute Neuts (auto) Absolute Nucleated RBC Nucleated RBC % (auto) Hold Purple Top SEE NOTE PT INR Anion Gap Estim Creat Clear Calc Estimated GFR POC Glucose 211 H Random Glucose Calcium Magnesium Total Bilirubin Direct Bilirubin AST ALT Alkaline Phosphatase Troponin I High Sens B-Natriuretic Peptide Total Protein Albumin Triglycerides 193 H Cholesterol 151 LDL Cholesterol, Calc 81 HDL Cholesterol 32 L Lipase Urine Color Yellow Urine Appearance Clear Urine pH 7.0 Ur Specific [place] 1.010 Urine Protein 300 (3+) H Urine Glucose (UA) 250 H Urine Ketones Negative Urine Blood Negative Urine Nitrite Negative Ur Leukocyte Esterase Negative Urine RBC 0-2 Urine WBC 0-5 Ur Squamous Epith Cells 0-2 Urine Bacteria None Seen Hyaline Casts 0-2 Stool Occult Blood 03/02/24 07:44 MCV MCH MCHC RDW Plt Count MPV Immature Gran % (Auto) Neut % (Auto) Lymph % (Auto) Doug[place] % (Auto) Eos % (Auto) Baso % (Auto) Lymph # (Auto) Dougherty # (Auto) Eos # (Auto) Baso # (Auto) Abs Immat Gran (auto) Absolute Neuts (auto) Absolute Nucleated RBC Nucleated RBC % (auto) Hold Purple Top PT INR Anion Gap Estim Creat Clear Calc Estimated GFR POC Glucose 169 H Random Glucose Calcium Magnesium Total Bilirubin Direct Bilirubin AST ALT Alkaline Phosphatase Troponin I High Sens B-Natriuretic Peptide Total Protein Albumin Triglycerides Cholesterol LDL Cholesterol, Calc HDL Cholesterol Lipase Urine Color Urine Appearance Urine pH Ur Specific [place] Urine Protein Urine Glucose (UA) Urine Ketones Urine Blood Urine Nitrite Ur Leukocyte Esterase Urine RBC Urine WBC Ur Squamous Epith Cells Urine Bacteria Hyaline Casts Stool Occult Blood Assessment and Plan (1) Left leg weakness: Status: Acute (2) Difficulty walking: Status: Acute Plan This is a 73-year-old female with history of hypertension, diabetes, CKD4, HLD, gout, anemia recently moved from [facility], recent admission for respiratory failure due to acute bronchitis due to human metapneumovirus and diastolic CHF who presents to the emergency department with sudden onset difficulty ambulating Ataxia and left Sided weakness pt unable to ambulate unassisted. this is an acute change denies pain, recent trauma; hip/pelvis x-ray normal ?cerebellar stroke due to ataxia and headache. no other focal deficits noted. brain CT negative, unable to have CTA due to CKD PT/OT eval, check lipid profile neurology consultation pending Check MRI DM2 SSI, POCs, ADA diet lantus elevated trop lower then previous no chest pain HFpEF leg edema, elevated BNP no hypoxia or respiratory symptoms keep legs elevated low sodium diet prescribed farxinj but hasn't started yet Diuretics held on discharge from previous admission due to renal disease CKD4 SCr at baseline Normocytic anemia Heme-negative Likely due to chronic disease Follow CBC HLD Continue statin, fenofibrate HTN Continue carvedilol nifedipine, Imdur dvt ppx - mechanical due to anemia Attending Dr. Mena HCP - daughter Code status - full code Quality Stroke Does the patient have a stroke diagnosis?: No VTE Prior VTE?: No VTE Risk Level:: Medical - moderate - high VTE Device Contraindication: N/A - Device Ordered VTE Drug Contraindication: Treatment Not Indicated
--- NOTE | 2024-03-02 11:07 | MHC.CM.PN ---
CM attempted to meet with Patient but she appeared confused (unable to state her address); CM spoke with Daughter [phone] and addressed DENNIS and then IMM, since she has been changed to Inpatient(original will be mailed to Jerri and a copy has been placed on the chart).PCP/PA is Dudley Nelson @ [facility].Patient lives in an apartment with her Daughter and she uses a rollator to assist with mobility. Patient is active with [facility]. OT is recommending Acute Rehab and CM has initiated and will follow for dc planning.
[2024-03-02 11:38] LABS: Glucose, Whole Blood 151 mg/dL (60-115)
[2024-03-02 16:19] LABS: Glucose, Whole Blood 164 mg/dL (60-115)
--- NOTE | 2024-03-02 18:48 | PC.NURSE ---
pt had difficulty urinating bladder scanned 999ml. provider notified, straight cath ordered. this rn performed st cath at 113 w 1150ml immediate output clear pale yellow. pt is due to void at 00:15-02:15 03/03/24
[2024-03-02] MEDS: Pravastatin Sodium 40 MG TABLET PO (20:34)
[2024-03-02] MEDS: Melatonin 3 MG TABLET 6 MG PO (20:34)
[2024-03-02] MEDS: Fenofibrate 160 MG TABLET PO (20:34)
[2024-03-02 21:18] LABS: Glucose, Whole Blood 138 mg/dL (60-115)
[2024-03-03] VITALS (8 sets, daily range): BP systolic 132–156; BP diastolic 60–74; PULSE 55–67; RESP 18; TEMP 36.1–36.8; O2SAT 95–100
--- NOTE | 2024-03-03 02:37 | PC.NURSE ---
pt a&ox4, see neuro assessments. left eye noted to be sluggish in response to light versus right eye which was brisk. Reported to Provider, MD Leyla via tigPurdy Aveonnect. No new orders. At 01:00, patient was bladder scanned for >999 of urine, order placed for padilla catheter by MD Joel. RN placed 16 fr padilla catheter at 02:00 03/03/2024. Immediately put out over 1000mL of clear yellow urine. RN noted patient has sudden decreased movement in LLE. RN requested patient to move the leg/wiggle toes to which patient was unable to do to the left. Patient also did not realize she was soiled and had a bowel movement. These findings reported to MD Joel. No new orders or medication change at tis time. Safety and comfort maintained, call king within reach.
[2024-03-03 07:29] LABS: Glucose, Whole Blood 92 mg/dL (60-115)
[2024-03-03] MEDS: Isosorbide Mononitrate 30 MG TAB.ER.24H PO (08:57)
[2024-03-03] MEDS: NIFEdipine ER 30 MG TAB.ER.24 PO (08:57)
[2024-03-03] MEDS: Aspirin 81 MG TAB.CHEW PO (08:58)
[2024-03-03] MEDS: 0.9 % Sodium Chloride Flush 3 ML SYRINGE IVFLUSH ×3 (08:58→22:52)
[2024-03-03] MEDS: carvediloL 12.5 MG TABLET PO ×2 (08:58→19:47)
[2024-03-03] MEDS: Insulin Glargine,Hum.rec.anlog 100 UNIT/ML 10 ML VIAL 25 UNIT SUBCUT (09:03)
[2024-03-03 11:32] LABS: Glucose, Whole Blood 190 mg/dL (60-115)
--- NOTE | 2024-03-03 11:45 | P.PNIM_ITS ---
Subjective Subjective Date of Service: 03/03/24 Review of Systems Follow up ataxia, left sided weakness no pain worsening weakness and decrease in speech Physical Exam 2 Vital Signs: Vital Signs: Last Vital Signs Temp 97.2 F 03/03/24 07:45 Pulse 55 03/03/24 10:42 Resp 18 03/03/24 07:45 BP 140/72 H 03/03/24 10:42 Pulse Ox 96 03/03/24 10:42 O2 Del Method Room Air 03/03/24 07:45 BMI result Body Mass Index 33.6 Appearing in no acute distress lung sounds are clear to auscultation heart regular rate rhythm, clear S1, S2 positive bowel sounds, abdomen is soft, nontender neuro patient is alert x3, no focal deficits Left sided hemiparesis Objective Data Active Medications Acetaminophen (Acetaminophen 325 Mg Tablet) 650 mg PO Q6H PRN PRN Reason: Pain, Mild (Pain Scale 1-3) Aspirin (Aspirin 81 Mg Tab.Chew) 81 mg PO DAILY [facility] Last Admin: 03/03/24 08:58 Dose: 81 mg Documented By: JENIFER Carvedilol (Carvedilol 12.5 Mg Tablet) 12.5 mg PO BID [facility]; Protocol Last Admin: 03/03/24 08:58 Dose: 12.5 mg Documented By: JENIFER Fenofibrate (Fenofibrate 160 Mg Tablet) 160 mg PO BEDTIME [facility] Last Admin: 03/02/24 20:34 Dose: 160 mg Documented By: DHARMESH Glucose (Glucose Gel 15 Gm Gel..Gram.) 15 gm PO Q15M PRN; Protocol PRN Reason: per Hypoglycemia Standing Ord. Dextrose (D10) 250 mls @ 750 mls/hr IV Q15M PRN; Protocol PRN Reason: per Hypoglycemia Standing Ord. Insulin Glargine (Insulin Glargine,Hum.Rec.Anlog 100 Unit/Ml 10 Ml Vial) 25 unit SUBCUT DAILY [facility] Last Admin: 03/03/24 09:03 Dose: 25 unit Documented By: JENIFER Insulin Human Lispro (Insulin Lispro 100 Unit/Ml 3 Ml Vial) 0 unit SUBCUT QIDACHS [facility]; Protocol Last Admin: 03/03/24 07:56 Dose: Not Given Documented By: JENIFER Non-Admin Reason: No Insulin Coverage Isosorbide Mononitrate (Isosorbide Mononitrate 30 Mg Tab.Er.24h) 30 mg PO DAILY [facility]; Protocol Last Admin: 03/03/24 08:57 Dose: 30 mg Documented By: JENIFER Melatonin (Melatonin 3 Mg Tablet) 6 mg PO BEDTIME PRN PRN Reason: Insomnia Last Admin: 03/02/24 20:34 Dose: 6 mg Documented By: DHARMESH Nifedipine (Nifedipine Er 30 Mg Tab.Er.24) 30 mg PO DAILY [facility]; Protocol Last Admin: 03/03/24 08:57 Dose: 30 mg Documented By: JENIFER Ondansetron HCl (Ondansetron Hcl 4 Mg/2 Ml Vial) 4 mg IVPUSH Q8H PRN PRN Reason: Nausea and Vomiting Pravastatin Sodium (Pravastatin Sodium 40 Mg Tablet) 40 mg PO BEDTIME [facility] Last Admin: 03/02/24 20:34 Dose: 40 mg Documented By: DHARMESH Sodium Chloride (0.9 % Sodium Chloride Flush 3 Ml Syringe) 3 ml IVFLUSH QSHIFT [facility] Last Admin: 03/03/24 08:58 Dose: 3 ml Documented By: JENIFER Labs 03/01/24 11:53 03/01/24 14:40 Labs: Laboratory Results - last 24 hr 03/02/24 03/02/24 03/03/24 16:15 20:58 07:18 POC Glucose 164 H 138 H 92 03/03/24 11:21 POC Glucose 190 H Assessment and Plan (1) Left leg weakness: Status: Acute (2) Difficulty walking: Status: Acute Plan 73-year-old female with history of hypertension, diabetes, CKD4, HLD, gout, anemia recently moved from [facility] recent admission for respiratory failure due to acute bronchitis due to human metapneumovirus and diastolic CHF who presents to the emergency department with sudden onset difficulty ambulating Ataxia and left Sided weakness secondary to Stroke pt unable to ambulate unassisted. 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 of the lateral ventricles without hemorrhagic transformation carotid doppler> minimal non hemodynamically significant stenosis bilaterally PT/OT eval>rec acute rehab neurology consultation> start Anticoagulation, eliquis 5mg BID DM2 SSI, POCs, ADA diet lantus elevated trop lower then previous no chest pain HFpEF leg edema, elevated BNP no hypoxia or respiratory symptoms keep legs elevated low sodium diet prescribed farxiga but hasn't started yet Diuretics held on discharge from previous admission due to renal disease CKD4 SCr at baseline Normocytic anemia Heme-negative Likely due to chronic disease Follow CBC HLD Continue statin, fenofibrate HTN Continue carvedilol nifedipine, Imdur dvt ppx - mechanical due to anemia Attending Dr. Mena HCP - daughter Code status - full code Quality Stroke Does the patient have a stroke diagnosis?: No VTE Prior VTE?: No VTE Risk Level:: Medical - moderate - high VTE Device Contraindication: N/A - Device Ordered VTE Drug Contraindication: Treatment Not Indicated
[2024-03-03] MEDS: Insulin Lispro 100 UNIT/ML 3 ML VIAL SUBCUT ×2 (12:20→16:47)
[2024-03-03 16:00] LABS: Glucose, Whole Blood 210 mg/dL (60-115)
[2024-03-03] MEDS: Pravastatin Sodium 40 MG TABLET PO (19:47)
[2024-03-03] MEDS: Acetaminophen 325 MG TABLET 650 MG PO (19:48)
[2024-03-03] MEDS: Apixaban 5 MG TABLET PO (19:48)
[2024-03-03] MEDS: Fenofibrate 160 MG TABLET PO (19:49)
[2024-03-03 19:56] LABS: Glucose, Whole Blood 137 mg/dL (60-115)
--- NOTE | 2024-03-03 23:38 | PC.NURSE ---
RN called into room at start of shift by patient's daughter. Pt daughter noted that patient was noticing a decrease in the ability to move left upper extremity. RN performed neuro assessment, findings that were different from previous assessments included - less ROM in left upper extremity, patient only able to lift arm 2-3 inches and only able to wiggle fingers. pt states the sensation is the same. palpable pulses to LUE. pt continues to have no movement to LLE. sudden onset of headache to the left side of patient head /, tylenol PRN given. RN notified MD Joel via 2threadsect of changes/findings, response via tigArcMailonnect, ok note does say left sided weakness so continue to monitor for now. No new orders given, RN continuing to perform neurological assessment per orders. all needs met, call king in reach. safety and comfort maintained.
[2024-03-04] VITALS: BP 146/68; PULSE 67; RESP 20; TEMP 36.2; O2SAT 95
[2024-03-04 03:28] VITALS: BP 126/58; PULSE 64; RESP 0; TEMP 36.1; O2SAT 95
[2024-03-04 07:22] LABS: Glucose, Whole Blood 92 mg/dL (60-115)
[2024-03-04 07:28] VITALS: BP 149/73; PULSE 67; RESP 13; TEMP 36.5; O2SAT 95
[2024-03-04 08:24] VITALS: BP 149/73; PULSE 67
[2024-03-04] MEDS: Apixaban 5 MG TABLET PO (08:24)
[2024-03-04] MEDS: carvediloL 12.5 MG TABLET PO (08:24)
[2024-03-04] MEDS: Aspirin 81 MG TAB.CHEW PO (08:24)
[2024-03-04] MEDS: Insulin Glargine,Hum.rec.anlog 100 UNIT/ML 10 ML VIAL 25 UNIT SUBCUT (08:24)
[2024-03-04] MEDS: Isosorbide Mononitrate 30 MG TAB.ER.24H PO (08:24)
[2024-03-04] MEDS: NIFEdipine ER 30 MG TAB.ER.24 PO (08:24)
[2024-03-04] MEDS: 0.9 % Sodium Chloride Flush 3 ML SYRINGE IVFLUSH (08:25)
--- NOTE | 2024-03-04 08:54 | P.DS_ITS ---
DS: Providers Provider Date of Service: 03/04/24 Date of admission: 03/02/24 11:04 Primary care physician: ROBERTO Whitehead Consults: 03/01/24 14:45 Consult to Neurology Routine Consulting Provider: Stoney Samuels Reason for consultation: off balance, unable to ambulate unassisted DS: Diagnosis Discharge Diagnosis (1) Left leg weakness: Status: Acute (2) Difficulty walking: Status: Acute DS: Summary Hospital Course Hospital Course: History and physical as per admitting provider. This is a 73-year-old female with multiple medical problems and recent admission for CHF/acute bronchitis who was brought to the emergency department with difficulty ambulating. Patient was in her usual state of health this morning when she woke up and was able to ambulate independently. Around 10:00 o'clock her grandson no to that she was unable to get up from the chair. Her daughter came home from work and had to assist her to the bathroom. She kept leaning to 1 side or directly backward any time they tried to stand her up or have her walk. In the emergency department her brain CT showed nonspecific changes and question left basal ganglia lacunar infarcts. CTA was not obtained due to history of renal disease. A hip and pelvis x-ray was obtained and is pending at the time of admission. When they attempted to ambulate the patient in the emergency department she was unable to initiate movement. She denies any pain or recent falls or trauma. She denies any vision changes, difficulty swallowing, weakness in her arms. She denies any nausea or vomiting, no dizziness. She reports ringing in her ears although she states this has been present for years. She has reported a posterior headache for the past several days. She has not previously had any issues similar to this in the past. Her CBC showed slight decrease in her H/H from previous, stool occult blood was obtained and was negative. Patient denies any change in bowel habits. 73-year-old woman treated for acute stroke with ataxia, left-sided weakness and some aphasia initially. MRI showed acute right HELENA territorial infarction superior to the level of the lateral ventricles without hemorrhagic transformation. Carotid Doppler showed minimal non hemodynamically significant stenosis bilaterally. She was seen by Neurology with recommendation to start anticoagulation, started on Eliquis 5 mg b.i.d. should have outpatient Holter monitor, last echocardiogram on 02/07/2024 showed EF of 65-70% with no regional wall motion abnormalities. She was started on aspirin and continued on statin. She did have some left sided hemiparesis to upper and lower extremities that seemed to worsen somewhat likely secondary to vasogenic edema from stroke. [facility]. Discussed this with her daughter. Patient is also in agreement with going to rehab facility. Diabetes mellitus type 2. Continue Lantus and sliding scale insulin Heart failure with preserved ejection fraction. No hypoxia or respiratory symptoms during hospitalization CKD stage 4. At baseline Normocytic anemia. Heme negative, likely secondary to chronic disease. Hyperlipidemia. Continue statin and fenofibrate Hypertension. Stable blood pressures, continue carvedilol, nifedipine and Imdur Time Attestation Discharge Coordination Time (in mins): 50 Quality: Safe Use of Opioids Does Pt have an Active Cancer Diagnosis on the Problem List?: No Quality: Stroke Does the patient have a stroke diagnosis?: Yes Reason for No Anti-thrombotic at DC: N/A - Med Ordered Reason for No Anticoagulant at DC: N/A - Med Ordered Reason Not Initiating IV-Tpa: Contraindicated Reason for No Anti-thrombotic by Day Two: N/A - Med Ordered Reason for No Statin at DC: N/A - Med Ordered Physical Exam Vital Signs: Vital Signs: Last Vital Signs Temp 97.7 F 03/04/24 07:28 Pulse 67 03/04/24 08:24 Resp 13 03/04/24 07:28 BP 149/73 H 03/04/24 08:24 Pulse Ox 95 03/04/24 07:28 O2 Del Method Room Air 03/04/24 07:28 BMI result Body Mass Index 33.6 Appearing in no acute distress head is normocephalic atraumatic eyes pupils are PERRLA sclera is anicteric mouth throat mucous membranes are intact and moist neck is supple no lymphadenopathy, no JVD noted lung sounds are clear to auscultation heart regular rate rhythm, clear S1, S2 positive bowel sounds, abdomen is soft, nontender neuro patient is alert x3, no focal deficits 1-2/5 strength to left upper and lower extremities, speech improved DS: Data Data Completed and Pending Labs on day of discharge: Laboratory Results - last 24 hr 05/07/24 05/07/24 05/07/24 11:21 15:54 19:35 POC Glucose 190 H 210 H 137 H 03/04/24 07:18 POC Glucose 92 Discharge Plan Discharge Anticipated Discharge Date/Time: 03/04/24 09:02 Patient Disposition: Xfer Inpatient Rehab Fac Discharge Diagnosis: Ataxia and left-sided weakness Stroke Referrals: Nick Nelson FNP [Primary Care Provider] - 1 Week Discharge Medications: New Eliquis 5 mg Tablet 5 mg PO BID Qty: 60 0RF aspirin 81 mg Tablet,Chewable 81 mg PO DAILY Qty: 90 0RF Continued (DME) lancets [FreeStyle Lancets] 28 gauge misc See Rx Instructions .Route Qty: 300 0RF Rx Instructions: Test 3 times per day (DME) blood-glucose meter [FreeStyle Lite Meter] Kit See Rx Instructions .Route Qty: 1 0RF Rx Instructions: As directed to test blood sugar 3 times per day (DME) FreeStyle Lite Strips Strip See Rx Instructions .Route Qty: 100 0RF Rx Instructions: three times per day dapagliflozin propanediol [Farxiga] 5 mg tablet 5 mg PO DAILY Qty: 30 0RF insulin lispro [Humalog KwikPen Insulin] 100 unit/mL insulin pen 1 sliding scale dose SUBCUT QIDACHS Rx Instructions: Blood Sugar: <150 - 0 units 151-200 - 2 units 201-250 - 4 units 251-300 - 6 units 301-350 - 8 units >350 - 10 units fenofibrate 160 mg Tablet 160 mg PO BEDTIME acetaminophen 500 mg Tablet 500 mg PO DAILY PRN (Reason: Pain) pravastatin 40 mg Tablet 40 mg PO BEDTIME nifedipine 30 mg Tablet Extended Release 24hr 30 mg PO DAILY Qty: 30 0RF Protocol: Hold for SBP< HOLD for SBP < : 90 isosorbide mononitrate 30 mg Tablet Extended Release 24 Hr 30 mg PO DAILY Qty: 30 0RF Protocol: Hold for SBP< HOLD for SBP < : 90 (DME) FreeStyle Lite Strips Strip Qty: 100 0RF Rx Instructions: Test four times a day or as directed. (DME) blood-glucose meter [FreeStyle Lite Meter] Kit Qty: 1 0RF Rx Instructions: As Directed insulin glargine [Lantus Solostar U-100 Insulin] 100 unit/mL (3 mL) insulin pen 30 unit SUBCUT DAILY Qty: 15 0RF (DME) pen needle, diabetic 32 gauge x 1/4 needle Qty: 100 0RF Rx Instructions: Use four times a day or as directed. (DME) lancets [FreeStyle Lancets] 28 gauge misc Qty: 100 0RF Rx Instructions: Test four times a day or as directed. carvedilol 12.5 mg tablet 12.5 mg PO BID Qty: 60 3RF Discharge Orders: Discharge Order (Routine); Ordered 03/04/24 Ordered By: Brandie Garcia Diet: Advance to usual diet Activity on Discharge: As tolerated Stand Alone Forms: Patient Portal Discharge page Print Language: Kinyarwanda Care Plan Goals: Transfer to [facility] for acute rehab Health Concerns: Ataxia and left-sided weakness Stroke Plan of Treatment: Follow-up with primary care provider as needed Will need outpatient Holter monitor Take all medications as prescribed Assessment: See discharge summary
--- NOTE | 2024-03-04 09:30 | MHC.CM.PN ---
Patient has been medically cleared for dc to Acute Rehab today. Patient will dc to [facility] today at 2PM, via [facility]. Patient and her Daughter/Jerri at listed # are aware of and in agreement with the dc plan. Last IMM addressed on 03/02/2024.
[2024-03-04 11:29] LABS: Glucose, Whole Blood 182 mg/dL (60-115)
[2024-03-04 11:31] VITALS: BP 179/81; PULSE 65; RESP 15; TEMP 37.4; O2SAT 96
[2024-03-04] MEDS: Insulin Lispro 100 UNIT/ML 3 ML VIAL SUBCUT (12:18)
== END 2024-03-04 16:20 | DRG 65 ==
LOC: HO.ED 14:06 → HO.EDOVER 14:52 → HO.IMC 16:06
PROVIDERS: Admitting Provider Physician Assistant Medical; Emergency Provider Emergency Medicine; PCP Nurse Practitioner Primary Care; Visit Provider Nurse Practitioner Acute Care
DX: I63.521 Cerebral infarction due to unspecified occlusion or stenosis of right anterior cerebral artery (principal); I13.0 Hypertensive heart and chronic kidney disease with heart failure and stage 1 through stage 4 chronic kidney disease, or unspecified chronic kidney disease; I50.32 Chronic diastolic (congestive) heart failure; N18.4 Chronic kidney disease, stage 4 (severe); R47.01 Aphasia; R29.701 NIHSS score 1; G83.34 Monoplegia, unspecified affecting left nondominant side; R27.0 Ataxia, unspecified; E11.22 Type 2 diabetes mellitus with diabetic chronic kidney disease; D63.1 Anemia in chronic kidney disease; E78.5 Hyperlipidemia, unspecified; Z79.4 Long term (current) use of insulin; Z79.899 Other long term (current) drug therapy
CPT/HCPCS: 36415; 70450; 70551; 73502; 80048; 80061; 80076; 81001; 82272; 82947; 83690; 83735; 83880; 84484; 85025; 85610; 93005; 93880; 97162; 97166; 97530; 97535; 99222; 99285; C1758

== ENCOUNTER → 2024-03-01 11:39 | Outpatient (BNV) | payer MEDICARE, SELFPAY | PROVIDERS: Admitting Provider Physician Assistant Medical; Emergency Provider Emergency Medicine; Visit Provider Internal Medicine Cardiovascular Disease | DX: R94.31 Abnormal electrocardiogram [ECG] [EKG] (principal); R53.1 Weakness; R20.2 Paresthesia of skin; I10 Essential (primary) hypertension | CPT/HCPCS: 93010 ==

== ENCOUNTER → 2024-03-01 14:41 | Outpatient (BNV) | payer MEDICARE, SELFPAY | PROVIDERS: Admitting Provider Physician Assistant Medical; Emergency Provider Emergency Medicine; Visit Provider Physician Assistant Medical | DX: R29.898 Other symptoms and signs involving the musculoskeletal system (principal); R26.2 Difficulty in walking, not elsewhere classified | CPT/HCPCS: 99222; 99232; 99239 ==

== ENCOUNTER → 2024-03-01 14:41 | Outpatient (BNV) | payer MEDICARE, SELFPAY | PROVIDERS: Admitting Provider Physician Assistant Medical; Emergency Provider Emergency Medicine; Visit Provider Psychiatry & Neurology Neurology | DX: I63.421 Cerebral infarction due to embolism of right anterior cerebral artery (principal) | CPT/HCPCS: 99222 ==

== ENCOUNTER 2024-04-07 12:19 | Inpatient (IN) | payer MEDICARE, SELFPAY ==
--- NOTE | ~2024-04-07 | XR_ITS ---
EXAMINATION: XR TIBIA AND FIBULA, LEFT CLINICAL INFORMATION: Pain. COMPARISON: None available. TECHNIQUE: AP and lateral views of the left tibia and fibula were obtained. FINDINGS: The bones and soft tissues are normal. No fracture. No osseous lesions. XR/XR tibia fibula LT 2V IMPRESSION: No significant abnormality identified.
--- NOTE | ~2024-04-07 | US_ITS ---
EXAMINATION: US VENOUS ULTRASOUND WITH DOPPLER LOWER EXTREMITY, LEFT CLINICAL INFORMATION: Lower extremity pain COMPARISON: None available. TECHNIQUE: Ultrasound of the deep veins is performed from the hip to the calf with compression sonography and color and pulse Doppler assessment. Spectral analysis with color-flow imaging is performed. FINDINGS: There is normal venous compression and respiratory variation and augmented flow. The visualized common femoral vein, superficial femoral vein, profunda femoral vein, popliteal vein, and the trifurcation region shows no evidence of deep venous thrombosis. There is no significant popliteal fossa cyst. The right common femoral vein appears normal. If the patient's symptoms persist, followup ultrasound in 5 days 7 days might be of value to exclude proximal propagation from a non-visualized calf vein. US/US venous duplex LE IMPRESSION: No DVT demonstrated in the left lower extremity.
[2024-04-07 12:31] VITALS: BP 110/61; PULSE 65; RESP 18; TEMP 37.1; O2SAT 95; BMI 30.9
--- OUTSIDE RECORDS SUMMARY | 2024-04-07 13:00 | XMS_ITS | Continuity of Care Document ---
Author Organization [facility] ter Address [address] [place] [address]- Care Team Providers Care Toddler Teacher Name Role Phone Not on Staff, PCP Primary Care Physician Unavail able Encounter [facility] Date(s): 03/07/24 - 03/12/[address] [address]- Discharge Disposition: Disch/Trans to IP Rehab or unit w/in Hos Attending Physician: Cynthia Blevins MD Admitting Physician: Reina Salazar MD Referring Physician: Not on Staff, Referring MD Allergies, Adverse Reactions, Alerts Substance Reaction Severity Status penicillins Active Medications acetaminophen 325 mg oral tablet 650 mg, By Mouth, Every 4 hours, PRN, Temperature Greater than 100.5, Refills 0, Maintenance, Pain , Mild, 03/12/24 9:55:00 EDT, Partial fill upon patient request if the prescription is for a schedule II opioid drug. Start Date: 03/12/24 Status: Ordered amLODIPine 5 mg oral tablet 5 mg, Tablet, By Mouth, 03/12/24 9:00:00 EDT Start Date: 03/12/24 Stop Date: 03/12/24 Status: Completed amLODIPine 5 mg oral tablet 5 mg, By Mouth, Daily, Refills 0, Maintenance, 03/12/24 9:59:00 EDT, Partial fill upon patient request if the prescription is for a schedule II opioid drug. Start Date: 03/12/24 Status: Ordered apixaban Starter Pack 5 mg oral tablet = 5 mg, By Mouth, 2 times a day, 0 Refills, Maintenance, 03/12/24 9:53:00 EDT, Tablet, Partial fillupon patient request if the prescription is for a schedule II opioid drug. Start Date: 03/12/24 Status: Ordered Aspirin Tablet 81 mg, By Mouth, Daily, Refills 0, Maintenance, 03/12/24 9:53:00 EDT, Partial fill upon patient request if the prescription is for a schedule II opioid drug. Start Date: 03/12/24 Status: Ordered atorvastatin 40 mg oral tablet 1 tablet = 40 mg, By Mouth, Daily, # 30 tablet, 5 Refills, Maintenance, 03/07/24 21:13:00 EDT, Tablet, Partial fill upon patient request if the prescription is for a schedule II opioid drug. Start Date: 03/07/24 Status: Ordered carvedilol 12.5 mg oral tablet 12.5 mg, 1, tablet, By Mouth, 2 times a day, # 180 tablet, Refills 0, Maintenance, 03/07/24 19:46:00 EDT, Partial fill upon patient request if the prescription is for a schedule II opioid drug. Start Date: 03/07/24 Status: Ordered cephalexin monohydrate 500 mg oral capsule = 500 mg, By Mouth, Every 12 hours, 0 Refills, Maintenance, 03/12/24 10:26:00 EDT, Capsule, Partialfill upon patient request if the prescription is for a schedule II opioid drug. Start Date: 03/12/24 Status: Ordered Coreg 12.5 mg oral tablet 12.5 mg, Tablet, By Mouth, 03/12/24 9:00:00 EDT Start Date: 03/12/24 Stop Date: 03/12/24 Status: Completed Docusate Sodium Capsule 100 mg, 1, capsule, By Mouth, 2 times a day, PRN, Refills 0, Maintenance, Constipation, 03/12/24 9:55:00 EDT, Partial fill upon patient request if the prescription is for a schedule II opioid drug. Start Date: 03/12/24 Status: Ordered fenofibrate 160 mg oral tablet 1 tablet = 160 mg, By Mouth, Daily, # 30 tablet, 0 Refills, Maintenance, 03/07/24 21:13:00 EDT, Tablet, Partial fill upon patient request if the prescription is for a schedule II opioid drug. Start Date: 03/07/24 Status: Ordered insulin lispro 100 u/ml subcutaneous injection 2-10 units, Subcutaneous Injection, 3 times a day before meals, << Sliding Scale Comments >> 150 - 199 2 units Call if less than 70 200 - 249 4 units 250 - 299 6 units 300 - 349 8 units 350 - 399 10 units Call if greater than 400 <<... Start Date: 03/12/24 Status: Ordered isosorbide mononitrate 30 mg oral tablet, extended release 1 tablet = 30 mg, By Mouth, Daily in AM, # 30 tablet, 0 Refills, Maintenance, 03/07/24 19:46:00 EDT, ER Tablet, Partial fill upon patient request if the prescription is for a schedule II opioid drug. Start Date: 03/07/24 Status: Ordered Lantus Inj 0.1 mL = 10 units, Subcutaneous Injection, Daily at bedtime, 0 Refills, Maintenance, 03/12/24 9:59:00 EDT, Injection, Partial fill upon patient request if the prescription is for a schedule II opioiddrug. Start Date: 03/12/24 Status: Ordered melatonin 3 mg oral tablet = 6 mg, By Mouth, Every 24 hours, 0 Refills, Maintenance, 03/12/24 9:54:00 EDT, Tablet, Partial fill upon patient request if the prescription is for a schedule II opioid drug. Start Date: 03/12/24 Status: Ordered MiraLax Powder 1 pack/packet = 17 Gm, By Mouth, Daily, PRN Constipation, 0 Refills, Maintenance, 03/12/24 9:55:00 EDT, Powder, Partial fill upon patient request if the prescription is for a schedule II opioid drug. Start Date: 03/12/24 Status: Ordered Problem List Condition Confirmation Course Effective Dates Status [facility] atus Informant Obese class I Confirmed Active Results Radiology Reports * Exam Date Time Procedure Performing Provider Status 03/11/24 12:23 PM US Retroperitoneum Comp Dimple Feldman; Auth (Verified) Notes: (US Retroperitoneum Comp) Reason For Exam: giuliano, urinart=y retention , eval for hydro;Other: RESULT: US Retroperitoneum Comp US Retroperitoneum Comp Reason: Other:; giuliano, urinary retention , eval for hydro; Clinical Question(s): Acute Renal Failure;Order Comment: US Retroperitoneum Complete Prep COMPARISON: None. FINDINGS: Right kidney: 8.1 cm in length. No hydronephrosis. Increased parenchymal echogenicity. No stones. No suspicious mass. Left kidney: 9.8 cm in length. No hydronephrosis. Increased parenchymal echogenicity. No stones. Nosuspicious mass. Subcentimeter simple cysts in the interpolar region, largest measuring 0.9 cm. Urinary bladder: Decompressed by Padilla catheter. IMPRESSION: 1. Echogenic kidneys likely representing medical renal disease. 2. No hydronephrosis or other acute abnormality. WSN: [id number] Ordering Physician: Cynthia Blevins Dictated By: Nataly Florence MD Dictated Date/Time: 03/11/24 12:58 p Reviewed By: Nataly Florence MD Signed By: Nataly Florence MD Signed Date/Time: 03/11/24 12:58 pm Transcribed By: ESTEBAN Transcribed Date/Time: 03/11/24 12:56 pm * Exam Date Time Procedure Performing Provider Status 03/08/24 1:54 AM MRI Brain W+W/O Contrast Charles Ervin; Auth (Verified) Notes: (MRI Brain W+W/O Contrast) Reason For Exam: TIA RESULT: MRI Brain W+W/O Contrast MRI Brain W+W/O Contrast INDICATION / CLINICAL QUESTION: Reason: TIA; Clinical Question(s): Infarction; Order Comment: Please see Reference Text for complete list of contraindications Infarction TECHNIQUE: MRI of the brain was performed with and without contrast utilizing sagittal and axial T1, axial T2, axial FLAIR, axial SWAN, and axial DWI sequences, and post-contrast 3D T1 CAMPBELL with multiplanar reformats and post contrast axial T1 PROPELLER. 20 mL of Clariscan was administered intravenously. COMPARISON: CT and CTA head 03/07/2024 FINDINGS: Several images are degraded by motion artifact which may obscure fine detail. BRAIN and EXTRA-AXIAL SPACES: There is multifocal patchy diffusion restriction with mildly hypointense signal on ADC map in the right medial frontal and parietal lobes as well as the cingulate gyrus and a portion of the body of the corpus callosum, in the right HELENA territory. There is corresponding T2 prolongation. Several small petechial foci of susceptibility artifact are present within the area of infarction consistent with petechial hemosiderin staining. There is mild amorphous enhancement associated with several areas of diffusion abnormality in the right medial frontoparietal junction. No other abnormal enhancement is seen. There is local sulcal effacement, but no midline shift or herniation. No other site of abnormal enhancement are noted. There are also small foci of diffusion restriction in the right superior cerebellar hemisphere withmild corresponding T2 prolongation, without mass effect or hemorrhage. It is difficult to accurately assess ADC signal due to small size of the diffusion abnormality in this region. In the remainder of the brain, there are small scattered foci of T2 prolongation in the deep and subcortical white matter, nonspecific but likely due to chronic small vessel disease. A small focus ofsusceptibility artifact in the left superior parietal lobe compatible with hemosiderin staining is noted. There is no space-occupying hematoma. There is no midline shift or effacement of basal cisterns. The midline structures are unremarkable. Ventricles, cisterns, and sulci are mildly prominent, consistent with volume loss, without hydrocephalus. No abnormal extra-axial fluid collections are seen. There is symmetric prominence of extra-axial CSF space in the posterior fossa.. Major intracranial flow voids are present. EXTRACRANIAL SOFT TISSUES: There have been lens replacements bilaterally. There is mild scattered mucosal thickening in the paranasal sinuses, without fluid levels. BONES: Marrow signal is preserved. IMPRESSION: 1. Patchy subacute infarction in the right HELENA territory, predominantly involving the medial right frontal and parietal lobes, with areas of petechial hemorrhage. No significant mass effect. 2. Additional small foci of acute/subacute infarction in the right cerebellum. Involvement of multiple vascular territories raises concern for cardioembolic source. WSN: [id number] Ordering Physician: Roma Fan Dictated By: Nataly Florence MD Dictated Date/Time: 03/08/24 8:37 am Reviewed By: Nataly Florence MD Signed By: Nataly Florence MD Signed Date/Time: 03/08/24 8:37 am Transcribed By: ESTEBAN Transcribed Date/Time: 03/08/24 8:23 am * Exam Date Time Procedure Performing Provider Status 03/07/24 5:35 PM Chest Portable James Kent; Claudio (V erified) Notes: (Chest Portable) Reason For Exam: CHF RESULT: Chest Portable Chest Portable Reason: CHF; Clinical Question(s): CHF COMPARISON: None. FINDINGS: LINES AND TUBES: None. LUNGS AND PLEURA: Nonspecific patchy density at the right base. Possible atelectasis. Limited exam. No pleural effusion. No pneumothorax. HEART, MEDIASTINUM AND BRIANA: Heart is normal in size. Normal mediastinal and hilar contour. BONES AND SOFT TISSUES: No acute abnormality. IMPRESSION: Limited exam. Possible right basilar atelectasis. WSN: [id number] Ordering Physician: Ning Palacio Dictated By: Julio Cesar Mcclure MD Dictated Date/Time: 03/07/24 6:29 pm Reviewed By: Julio Cesar Mcclure MD Signed By: Julio Cesar Mcclure MD Signed Date/Time: 03/07/24 6:29 pm Transcribed By: ESTEBAN Transcribed Date/Time: 03/07/24 6:29 pm * Exam Date Time Procedure Performing Provider Status 03/07/24 2:[address] Head-Hyper Acute Stroke Yamila Marie; Auth (Verified) Notes: (CT Head-Hyper Acute Stroke) Reason For Exam: Neuro deficit, acute, stroke suspected;Other: RESULT: CT Head-Hyper Acute Stroke CT Head-Hyper Acute Stroke INDICATION: Reason: Other:; Neuro deficit, acute, stroke suspected; Clinical Question(s): Other:; Hematoma Infarction CLINICAL QUESTION: Other: TECHNIQUE: Noncontrast head CT using axial technique and reconstructed in axial and coronal plane. Age-based protocol was used to optimize exposure parameters. COMPARISON: None FINDINGS: BRAIN: There are multifocal low density foci in the right parafalcine frontal/parietal lobes, suspicious for chronic infarcts. There is no intracranial hemorrhage. White/hillman matter differentiation is preserved. There is no midline shift or cisternal effacement. Ventricular size is normal. Mild periventricular and subcortical low-density white matter changes. CALVARIUM, SKULL BASE and SINUSES: No acute finding. IMPRESSION: Suspect chronic infarcts in the right parafalcine frontal/parietal lobes. May consider further assessment using MRI as needed. No intracranial hemorrhage. WSN: [id number] Ordering Physician: Ning Palacio Dictated By: Rebecca Howell MD Dictated Date/Time: 03/07/24 2:46 pm Reviewed By: Rebecca Howell MD Signed By: Rebecca Howell MD Signed Date/Time: 03/07/24 2:46 pm Transcribed By: ESTEBAN Transcribed Date/Time: 03/07/24 2:39 pm * Exam Date Time Procedure Performing Provider Status 03/07/24 2:[address] Angio Neck Hyperacute Stroke Yamila Da Silva; Auth (Verified) Notes: (CT Angio Neck Hyperacute Stroke) Reason For Exam: Aneurysm, neck vessel(s);Other: RESULT: CT Angio Neck Hyperacute Stroke CT Angio Head Hyperacute Stroke, CT Angio Neck Hyperacute Stroke Reason: Other:; Stroke; Clinical Question(s): Other:; Hematoma Aneurysm / Other: TECHNIQUE: CT angiogram of the head and neck was performed after bolus administration of intravenous contrast. 100 mL of Omnipaque 300 was administered intravenously. Coronal and sagittal MIP reformatted images were obtained. Additional 3-D images were created on a separate workstation under concurrent supervision by the attending radiologist. All stenoses are measured using NASCET criteria. Weight-based protocol using automatic tube modulation was used to optimize exposure parameters. RADIATION DOSE PARAMETERS: CTDIvol Body: 7.28 mGy, DLP Body: 432 mGy*cm. CTDIvol Head: 45.40 mGy, DLP Head: 773 mGy*cm. COMPARISON: Noncontrast CT head performed concurrently. FINDINGS: CTA OF THE NECK: Arch: There is a three vessel aortic arch. There is mild atherosclerotic plaque of the aortic arch,but origins of the supra aortic vessels are patent. Right carotid system: The common carotid and cervical internal carotid arteries are patent. There is calcified atherosclerotic plaque at the carotid bifurcation, but no ICA stenosis (0%) by NASCET criteria within the confines of motion. Left carotid system: The common carotid and cervical internal carotid arteries are patent. There iscalcified atherosclerotic plaque at the carotid bifurcation, but no ICA stenosis (0%) by NASCET criteria. There is eccentric predominantly noncalcified atherosclerotic plaque in the common carotid artery with moderate stenosis. There is retropharyngeal course of the internal carotid artery with mild deformity of the contour of the hypopharynx. There is a co-dominant vertebral artery system. Right vertebral: No significant stenosis. No evidence of dissection or aneurysm. Left vertebral: No significant stenosis. No evidence of dissection or aneurysm. Other: Soft tissues and bones: No evidence of lymphadenopathy or mass. The thyroid is unremarkable. Visualized lung apices are clear. The airways are clear. Mild degenerative changes of the cervical spine are noted, without acute osseous abnormality. CTA OF THE HEAD: Anterior circulation: Bilateral intracranial ICAs demonstrate atherosclerotic calcification, with focal moderate stenosis of the right supraclinoid internal carotid artery. There is focal moderate stenosis of the proximal right A2 segment with immediate reconstitution. There is focal moderate stenosis of the mid left M1 segment with relatively preserved distal branches. There is no significant stenosis, proximal cutoff, aneurysm, or vascular malformation. Posterior circulation: There is atherosclerotic plaque with moderate stenosis of the mid right V4 segment. The bilateral intracranial vertebral arteries are patent. The basilar artery exhibits mild to moderate stenosis of the midportion which is otherwise patent. The bilateral superior cerebellar artery branches are patent. There are origins of the bilateral posterior cerebral arteries which are otherwise patent. Veins: Major dural venous sinuses are patent. Other: Soft tissues and bones: There are areas of low attenuation in the right HELENA territory compatible with a subacute right HELENA evolving infarct. Correlation with prior imaging would be helpful to assess for change. No midline shift or effacement of the basal cisterns. No space-occupying hemorrhage. There have been lens extractions bilaterally. No significant opacification in the paranasal sinusesor mastoid air cells. IMPRESSION: No proximal occlusion or high grade stenosis in the major arteries of the head and neck. Moderate stenosis of the right supraclinoid internal carotid artery, focal moderate stenosis of theproximal right A2 segment with immediate reconstitution, and focal moderate stenosis of the left mid M1 segment with preserved distal branches. Moderate stenosis of the mid right V4 segment and mild to moderate multifocal stenosis of the mid basilar artery. Focal moderate stenosis of the left common carotid artery due to eccentric predominantly noncalcified plaque. WSN: [id number] Ordering Physician: Ning Palacio Dictated By: Neda Shultz MD Dictated Date/Time: 03/07/24 3:41 pm Reviewed By: Neda Shultz MD Signed By: Neda Shultz MD Signed Date/Time: 03/07/24 3:41 pm Transcribed By: ESTEBAN Transcribed Date/Time: 03/07/24 2:50 pm * Exam Date Time Procedure Performing Provider Status 03/07/24 2:[address] Angio Head Hyperacute Stroke Yamila Da Silva; Claudio (Verified) Notes: (CT Angio Head Hyperacute Stroke) Reason For Exam: Stroke;Other: RESULT: CT Angio Head Hyperacute Stroke CT Angio Head Hyperacute Stroke, CT Angio Neck Hyperacute Stroke Reason: Other:; Stroke; Clinical Question(s): Other:; Hematoma Aneurysm / Other: TECHNIQUE: CT angiogram of the head and neck was performed after bolus administration of intravenous contrast. 100 mL of Omnipaque 300 was administered intravenously. Coronal and sagittal MIP reformatted images were obtained. Additional 3-D images were created on a separate workstation under concurrent supervision by the attending radiologist. All stenoses are measured using NASCET criteria. Weight-based protocol using automatic tube modulation was used to optimize exposure parameters. RADIATION DOSE PARAMETERS: CTDIvol Body: 7.28 mGy, DLP Body: 432 mGy*cm. CTDIvol Head: 45.40 mGy, DLP Head: 773 mGy*cm. COMPARISON: Noncontrast CT head performed concurrently. FINDINGS: CTA OF THE NECK: Arch: There is a three vessel aortic arch. There is mild atherosclerotic plaque of the aortic arch,but origins of the supra aortic vessels are patent. Right carotid system: The common carotid and cervical internal carotid arteries are patent. There is calcified atherosclerotic plaque at the carotid bifurcation, but no ICA stenosis (0%) by NASCET criteria within the confines of motion. Left carotid system: The common carotid and cervical internal carotid arteries are patent. There iscalcified atherosclerotic plaque at the carotid bifurcation, but no ICA stenosis (0%) by NASCET criteria. There is eccentric predominantly noncalcified atherosclerotic plaque in the common carotid artery with moderate stenosis. There is retropharyngeal course of the internal carotid artery with mild deformity of the contour of the hypopharynx. There is a co-dominant vertebral artery system. Right vertebral: No significant stenosis. No evidence of dissection or aneurysm. Left vertebral: No significant stenosis. No evidence of dissection or aneurysm. Other: Soft tissues and bones: No evidence of lymphadenopathy or mass. The thyroid is unremarkable. Visualized lung apices are clear. The airways are clear. Mild degenerative changes of the cervical spine are noted, without acute osseous abnormality. CTA OF THE HEAD: Anterior circulation: Bilateral intracranial ICAs demonstrate atherosclerotic calcification, with focal moderate stenosis of the right supraclinoid internal carotid artery. There is focal moderate stenosis of the proximal right A2 segment with immediate reconstitution. There is focal moderate stenosis of the mid left M1 segment with relatively preserved distal branches. There is no significant stenosis, proximal cutoff, aneurysm, or vascular malformation. Posterior circulation: There is atherosclerotic plaque with moderate stenosis of the mid right V4 segment. The bilateral intracranial vertebral arteries are patent. The basilar artery exhibits mild to moderate stenosis of the midportion which is otherwise patent. The bilateral superior cerebellar artery branches are patent. There are origins of the bilateral posterior cerebral arteries which are otherwise patent. Veins: Major dural venous sinuses are patent. Other: Soft tissues and bones: There are areas of low attenuation in the right HELENA territory compatible with a subacute right HELENA evolving infarct. Correlation with prior imaging would be helpful to assess for change. No midline shift or effacement of the basal cisterns. No space-occupying hemorrhage. There have been lens extractions bilaterally. No significant opacification in the paranasal sinusesor mastoid air cells. IMPRESSION: No proximal occlusion or high grade stenosis in the major arteries of the head and neck. Moderate stenosis of the right supraclinoid internal carotid artery, focal moderate stenosis of theproximal right A2 segment with immediate reconstitution, and focal moderate stenosis of the left mid M1 segment with preserved distal branches. Moderate stenosis of the mid right V4 segment and mild to moderate multifocal stenosis of the mid basilar artery. Focal moderate stenosis of the left common carotid artery due to eccentric predominantly noncalcified plaque. WSN: [id number] Ordering Physician: Ning Palacio Dictated By: Neda Shultz MD Dictated Date/Time: 03/07/24 3:41 pm Reviewed By: Neda Shultz MD Signed By: Neda Shultz MD Signed Date/Time: 03/07/24 3:41 pm Transcribed By: ESTEBAN Transcribed Date/Time: 03/07/24 2:50 pm Vital Signs Most recent to oldest [Reference Range]: 1 2 3 4 Height 152.4 cm (03/12/24 12:21 PM) 152.4 cm (03/12/24 11:45 AM) 152.4 cm (03/12/24 7:48 AM) Weight 78.18 kg (03/07/24 4:30 PM) 74.1 kg (03/07/24 4:00 PM) Oxygen Saturation [94-100 %] 98 % (03/12/24 12:21 PM) 98 % (03/12/24 11:45 AM) 98 % (03/12/24 7:48 AM) Pulse Rate [55-90 bpm] 65 bpm (03/12/24 12:21 PM) 60 bpm (03/12/24 11:00 AM) 63 bpm (03/12/24 9:26 AM) Body Mass Index [18.5-24.99 kg/m2] 33.66 kg/m2 *>HHI* (03/07/24 4:30 PM) Blood Pressure [90-138/55-84 mm Hg] 145/69mm Hg *H* (03/12/24 12:21 PM) 110/81mm Hg (03/12/24 11:45 AM) 147/79mm Hg *H* (03/12/24 9:26 AM) 147/79mm Hg *H* (03/12/24 9:26 AM) Respiratory Rate [16-30 br/min] 18 br/min (03/12/24 12:21 PM) 18 br/min (03/12/24 11:45 AM) 16 br/min (03/12/24 7:48 AM) Temperature [96.8-100.4 DegF] 98.0 DegF (03/12/24 12:21 PM) 97.5 DegF (03/12/24 11:45 AM) 98.2 DegF (03/12/24 7:48 AM) Mode of Delivery (Oxygen) Room air (03/12/24 12:21 PM) Room air (03/12/24 11:45 AM) Room air (03/12/24 7:48 AM) Blood pressure sites Arm, right (03/12/24 12:21 PM) Arm, left (03/12/24 11:45 AM) Arm, left (03/12/24 7:48 AM) Temperature Route Oral (03/12/24 12:21 PM) Oral (03/12/24 11:45 AM) Oral (03/12/24 7:48 AM) Dry Weight 78.18 kg (03/07/24 4:30 PM) Social History Social History Type Response Smoking Status Never; Previous brianne tment: None entered on: 03/07/24 Sex Admission evaluation note * Reina Salazar MD: MODIFY Reina Salazar MD: MODIFY, MODIFY, MODIFY, MODIFY, PERFORM, MODIFY, MODIFY, MODIFY, MODIFY, MODIFY, MODIFY, MODIFY, MODIFY, MODIFY, MODIFY, MODIFY Event Display: Admission Note Authored Date: [id number] Patient: ??NEISHA, 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 Age:??73 Years?Sex:??Female?:??1950?? 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 ?? HPI is mostly obtained from chart review and EMS reports. ??Patient's last well- known was 7 AM.?? Per her daughter, she has been conversational after having a stroke a week ago, she speaks slowly at baseline but today there has been a change.?? She was treated at [facility] for the stroke. ??She was noted to have profound left-sided deficits??after her stroke. ??She is on Eliquis for paroxysmal atrial fibrillation. ??Her daughter also notes that she has been making repetitive motions as if she is brushing her hair and rubbing her stomach which are all new motions she does not normally exhibit. ??Patient denied any abdominal pain, headache, recent cough or congestion.?? Reportedly, she did vomit??prior to arrival to the ED. ?? Per daughter, patient had an HELENA stroke, on MRI. Was??not on eliquis or asprin until saturday evening. ?? Initial vital signs was afebrile 97.9 F, heart rate 73 bpm,??blood pressure??148/74 saturating 97% on room air. ??NIH stroke scale was 20 on initial arrival to the ED.??CT head hyperacute showed chronic infarcts in the right parafalcine frontal and parietal lobes, no intracranial hemorrhage noted.?? CT angio head and neck showed no proximal occlusion or high-grade stenosis in the major arteries of the head and neck. There is moderate stenosis of the right supraclinoid internal carotid artery, moderate stenosis of the left mid M1 segment with preserved distal branches, moderate stenosis of themid right V4 segment and moderate multifocal stenosis of the basilar artery midsection, moderate stenosis of left common carotid artery stent predominantly noncalcified plaque. ?? Lab work significant for leukocytosis of 11.1, neutrophilic predominance.?? Hemoglobin 9.3, hematocrit 20.6, MCV normocytic 87.2.?? INR 1.2.?? All other electrolytes within normal limits.?? Creatinine elevated at 1.98 with a GFR of 27.?? High-sensitivity troponin was 31, repeat was 34, negative delta troponin.?? UA shows heavy bacteria, WBCs 155 with positive nitrites and 3+ leukocytes concerningfor UTI.?? Chest x-ray shows possible right basilar atelectasis.?? EKG showed sinus rhythm with first-degree AV block, heart rate 72 bpm with no acute ST changes. ?? Patient received 2 mg of IV Versed to obtain CT angiogram due to not being redirectable and??increased movement.?? Also given 1500 mg of IV Keppra.?? Neurology was consulted, saw the patient.?? Recommendations per their note. Patient is admitted to medicine for further management of her stroke.? On my examination of the patient, she has mitts to the hand, moving her right hand repetitively to her head, not opening eyes to command, nonverbal, left hand also in mitts but not moving. Review of Systems unable to obtain Objective Vital Signs?? Temperature: 97.2 DegF (03/07/24 16:30:00) Temperature Route: Oral (03/07/24 16:30:00) Pulse Rate: 67 bpm (03/07/24 16:30:00) Respiratory Rate: 20 br/min (03/07/24 16:30:00) Systolic Blood Pressure:??143 mm Hg??High (03/07/24 16:30:00) Diastolic Blood Pressure: 72 mm Hg (03/07/24 16:30:00) Blood pressure sites: Arm, left (03/07/24 16:30:00) Mean Arterial Pressure: 96 mm Hg (03/07/24 16:30:00) Pulse Pressure: 71 mm Hg (03/07/24 16:30:00) Oxygen Saturation: 98 % (03/07/24 16:30:00) Mode of Delivery (Oxygen): Room air (03/07/24 16:00:00) Early Warning Score: 2 (03/07/24 16:47:10) ?? Physical Exam General: resting in bed, soft mitts to bilateral hands HEENT: PERRL, NCAT Cardio:??sinus, HR 67bpm??no murmurs auscultated on exam Respiratory: CTA bilaterally w/ no audible wheezes or rales, on room air MSK: good tone in RUE, seen moving RUE repetitively and against gravity. Extremities: no peripheral edema noted in BLE Neuro: nonverbal on my exam, not following commands Assessment/Plan 73 F with past medical history of gout, hypertension, diabetes mellitus type 2, heart failure, paroxysmal atrial fibrillation on Eliquis, hyperlipidemia, history of CVA 1 week ago with one-sided deficits resulting in flaccid left arm and left leg presenting from SNF to the ED as a stroke alert for altered mental status. ?? Altered mental status Possible Stroke ??(I63.9) History of CVA (cerebrovascular accident) ??(Z86.73) Suspected stroke, altered mentation and repetitive movements. CT angiogram head and neck does not show??LVO requiring thrombectomy. ??Patient did not receive TNK She did receive a Keppra load in the ED, to be continued 1000 mg twice daily starting tomorrow.?? Holding home Eliquis for now, aspirin 300 mg rectally ?? Plan: ??? N.p.o.??until formal swallow evaluation ?Aspirin 300 mg rectally until cleared for oral, then can continue home Eliquis. ??? Keppra 1500 mg IV load then continue 1000 mg twice daily ?Telemetry ??? MRI brain ??? Bedside EEG ?Follow-up lipid panel, HbA1c ??? Permissive hypertension??with??goal systolic 160 to 180 mmHg ? PM&R consult needed ?For the morning team, please obtain records from recent admission to [facility] and upload brain images to??[facility] ?? Urinary Tract Infection (N39.0) Afebrile, however WBCs at 11 K??with neutrophilic predominance. ??Concern for a UTI??that is??causing her altered mentation. ??UA shows heavy bacteria with WBCs,??3+ leukocyte esterases??and positivefor nitrites. ?? Plan: ?1 g ceftriaxone daily ??? Add on urine culture - padilla catheter in place for urinary retention ?? Acute Kidney Injury on Chronic Kidney Disease Unclear baseline, but Cr elevated at 1.98 ?? Plan: - BMP tomorrow -??500cc LR bolus ?? Chronic Stable Medical Conditions: Gout ??(M10.9) ??? not taking colchicine??0.3 mg right now, per HCP ?? Heart failure ??(I50.9) Hyperlipidemia ??(E78.5) Hypertension ??(I10) ??? HOLDING home antihypertensive carvedilol 12.5 mg twice daily and nifedipine 30mg daily ?HOLDING Farxiga 5 mg daily ?HOLDING Imdur 30 mg daily - continue fenofibrate 160mg - continue atorvastatin 40mg (was on pravastatin 40mg daily but switching to high intensity after CVA) ?? Paroxysmal atrial fibrillation ??(I48.0) ??? Holding home Eliquis ?? Type II diabetes mellitus ??(E11.9) ??? Lantus 30U in the morning daily and humalog sliding scale ?POC's TID and before bedtime, insulin sliding scale, hypoglycemia measures in place - lantus 15U in the AM while NPO ?? Quality measures VTE prophylaxis: Subcutaneous heparin Code status: full code, confirmed with HCP on admission Diet: NPO strict, pending swallow eval Family: spoke to daughter/HCP Jerri Lu over the phone on admission. ?? Patient case and plan discussed with attending physician Dr. Salazar. ?? Roma Fan??DO Internal Medicine PGY2 ?? The patient seen and examined on . The case reviewed in detail with admitting residenton this date. I reviewed and agree as above. Dvt, high risk. Reina Salazar MD Histories Allergies Allergies ?(Active and Proposed Allergies Only) penicillins? (Severity: Unknown severity, Onset: Unknown) ?? Past Medical History/Problem List Active Problems(1) Obese class I ?? Past Surgical History No surgery history documented. ?? Social History Alcohol Details:??Use: Past. ??Frequency: 1-2 times per year. ??Type: Beer. ??Alcohol use in household: No.??Date Last Used: 2022. Employment/School Details:??Status: Retired. Home/Environment Details:??Living situation: Home with assistance. ??Lives with: Children. ??Marital Status of Patient if Patient Independent Adult: . ??Glucose monitoring, Walker/Cane Home equipment:. ??Feels unsafe at home: No. ??Safe place to go: Yes. ??Family/Friends available for support: Yes. Nutrition/Health Details:??Diet: Diabetic. ??Sleeping concerns: Yes. ??Feels highly stressed: Yes. Tobacco Details:??Smokeless tobacco use: Never. ??Previous treatment: None. ?? Family History No Family History documented. Medications Home Medications Carvedilol (carvedilol 12.5 mg oral tablet)?12.5?Milligram?1?tablet?By Mouth?2 times a day Colchicine (colchicine 0.6 mg oral tablet)?TAKE HALF A TABLET (1/2 X 0.6 MG) ORALLY DAILY dapagliflozin (Farxiga 5 mg oral tablet)?1?tab(s)?5?Milligram?By Mouth?Daily Insulin Glargine (Lantus Solostar Pen 100 units/mL subcutaneous solution)?10?unit(s)?Subcutaneous Injection?Daily at bedtime Isosorbide Mononitrate (isosorbide mononitrate 30 mg oral tablet, extended release)?1?tab(s)?30?Milligram?By Mouth?Daily in AM Metformin (metFORMIN 850 mg oral tablet)?1?tab(s)?850?Milligram?By Mouth?2 times a day Results Recent Labs BLOOD BANK Blood Type A Positive ()?? 03/07/2024 14:00 Antibody Screen Negative ()?? 03/07/2024 14:00 ?? BLOOD COUNT & DIFF WBC 11.1 k/mm3 (High)?? 03/07/2024 14:49 RBC 3.28 m/mm3 (Low)?? 03/07/2024 14:49 Hgb 9.3 Gm/dL (Low)?? 03/07/2024 14:49 Hct 28.6 % (Low)?? 03/07/2024 14:49 MCV 87.2 femtoliters ()?? 03/07/2024 14:49 MCH 28.4 pg ()?? 03/07/2024 14:49 MCHC 32.5 g/dL (Low)?? 03/07/2024 14:49 Platelet Count 380 k/mm3 ()?? 03/07/2024 14:49 RDW-SD 49.1 femtoliters (High)?? 03/07/2024 14:49 MPV 9.9 femtoliters ()?? 03/07/2024 14:49 Nucleated RBC (Automated) 0.0 #/100 WBC'S ()?? 03/07/2024 14:49 Abs. NRBC 0.0 k/mm3 ()?? 03/07/2024 14:49 Abs. Neut 7.7 k/mm3 (High)?? 03/07/2024 14:49 Abs. Lymph 1.7 k/mm3 ()?? 03/07/2024 14:49 Abs. [place] 0.5 k/mm3 ()?? 03/07/2024 14:49 Abs. Eo 0.6 k/mm3 (High)?? 03/07/2024 14:49 Abs. Baso 0.0 k/mm3 ()?? 03/07/2024 14:49 Neut % 69.3 % ()?? 03/07/2024 14:49 Lymph % 15.5 % ()?? 03/07/2024 14:49 [place] % 4.1 % (Low)?? 03/07/2024 14:49 Eos % 5.1 % ()?? 03/07/2024 14:49 Baso % 0.4 % ()?? 03/07/2024 14:49 Platelet Estimate ADEQUATE ()?? 03/07/2024 14:49 Imm Gran 5.6 % ()?? 03/07/2024 14:49 Abs. Imm Gran 0.6 k/mm3 ()?? 03/07/2024 14:49 ?? CARDIAC High Sensitivity Troponin (HSTnT) 34 ng/L (High)?? 03/07/2024 16:48 ?? CHEM GENERAL Sodium 141 mmol/L ()?? 03/07/2024 14:49 Potassium 4.8 mmol/L ()?? 03/07/2024 14:49 Chloride 107 mmol/L ()?? 03/07/2024 14:49 Bicarbonate Level 20 mmol/L (Low)?? 03/07/2024 14:49 Anion Gap 14 ()?? 03/07/2024 14:49 Glucose Level 83 mg/dL ()?? 03/07/2024 14:49 Glucose, POC 98 mg/dL ()?? 03/07/2024 13:57 BUN 53 mg/dL (High)?? 03/07/2024 14:49 Creatinine-Blood 1.98 mg/dL (High)?? 03/07/2024 14:49 Estimated GFR Creatinine 27 ML/MIN/1.73 M2 ()?? 03/07/2024 14:49 Calcium 9.7 mg/dL ()?? 03/07/2024 14:49 AST (SGOT) 17 units/L ()?? 03/07/2024 14:49 Lactate 0.9 mmol/L ()?? 03/07/2024 14:49 ?? COAG INR 1.2 (High)?? 03/07/2024 14:49 Protime (PT) 12.4 seconds (High)?? 03/07/2024 14:49 APTT 33.9 seconds (High)?? 03/07/2024 14:49 ?? UA/URINALYSIS Appear/Color, Urine LIGHT YELLOW ()?? 03/07/2024 16:59 Specific [place], Urine 1.038 (High)?? 03/07/2024 16:59 pH, Urine 6.0 ()?? 03/07/2024 16:59 Albumin, Urine 3+ (Abnormal)?? 03/07/2024 16:59 Glucose, Urine 4+ (Abnormal)?? 03/07/2024 16:59 Ketones, Urine NEGATIVE ()?? 03/07/2024 16:59 Bilirubin, Urine NEGATIVE ()?? 03/07/2024 16:59 Hemoglobin, Urine 3+ (Abnormal)?? 03/07/2024 16:59 Nitrite, Urine POSITIVE (Abnormal)?? 03/07/2024 16:59 Leukocyte, Urine 3+ (Abnormal)?? 03/07/2024 16:59 Urobilinogen NORMAL mg/dL ()?? 03/07/2024 16:59 WBC's, Urine 155 /HPF (High)?? 03/07/2024 16:59 RBC's, Urine >182 /HPF (High)?? 03/07/2024 16:59 Bacteria HEAVY HPF (Abnormal)?? 03/07/2024 16:59 Squamous Epith 1 /HPF ()?? 03/07/2024 16:59 Amorphous Crystals SLIGHT /HPF ()?? 03/07/2024 16:59 Mucus SLIGHT /LPF ()?? 03/07/2024 16:59 WBC Clumps SLIGHT /HPF ()?? 03/07/2024 16:59 Hold Urine Culture Testing available 48 hours from time of collection. ()?? 03/07/2024 16:59 ?? URINE OTHER Est Creatinine Clearance 18.72 mL/min ()?? 03/07/2024 16:47 ? EKG study * Event Display: ECG 12-Lead Authored Date: Please click on pdf link to open report * Event Display: ECG 12-Lead Authored Date: Ventricular Rate: 72 BPM Atrial Rate: 72 BPM P-R Interval: 218 ms QRS Duration: 88 ms Q-T Interval: 384 ms QTC Calculation(Bazett): 420 ms P [place]: 60 degrees R [place]: -16 degrees T [place]: 62 degrees Sinus rhythm with 1st degree A-V block Otherwise normal ECG No previous ECGs available Confirmed by Clif Duarte ([id number]) on 03/08/2024 7:14:50 AM [place]: Clif Duarte [facility] * Event Display: Cardiac Rhythm Strips Authored Date: Hospital Progress note * Denys Shields RN: PERFORM, SIGN, VERIFY, MODIFY, SIGN Event Display: Progress Note Hospital Authored Date: 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 Age: 73 years Sex: Female : 1950 Associated Diagnoses: None Author: Cornelius RN, Denys Findings Problem Related to Alteration in Neurological : Alteration in Neurological Function/new 03/12/2024 8:00 EDT Alteration in Neuro status Related to Other: r/o seizure vs stroke Goals & Outcomes, Neurological Pt is safe with transfers & activities, Pt will be discharged without infection, Pt will be hemodynamically stable, Pt will be Neurologically stable, Pt will maintain intact skin integrity, Pt will remain free from injury, Pt will resume/maintain adequate cardiac output, Pt will state importance of adhering to medication regime, Pt/caregiver will receive psyc hosocial support as needed, Pt/caregiver will state understanding aspiration precautions, Pt/caregiver will state understanding dietary modifications Interventions, Neurological Assess/monitor neurologic status, Assess/monitor VS per unit standards & prn, Call/Report variances in assessments to provider, Monitor for headaches, nausea, vomiting, Monitor speech fluency, aphasia, word finding difficulty, Physical assessment per unit standards BH Goals/Interventions, Neurological Yes Neurological, Problem Start 03/07/2024 19:53 Reviewed plan with, Neurological Patient Patient Progression, Neurological Pt progressing according to plan . Nursing Data Neurological Data. : Neurological Data. 03/12/2024 8:00 EDT Neurological Symptoms Weakness or loss of muscle strength Level of Consciousness Full Consciousness Orientated to person, place, time Person, Place, Time, Event Facial Symmetry Intact Characteristics of Speech Clear and normal Pupil description, left Regular Pupil description, right Regular Pupil reaction, left Brisk Pupil reaction, right Brisk Pupil Size, Left 3 mm Pupil Size, Right 3 mm Strength LUE 1-Trace movement Strength RUE 4-Active movement against gravity & some resistance Strength LLE 0-No movement Strength RLE 4-Active movement against gravity & some resistance Tone LUE Normal Tone RUE Normal Tone LLE Flaccid Tone RLE Normal Sensation LUE Intact Sensation RUE Intact Sensation LLE Intact Sensation RLE Intact Movement LUE Spontaneous Movement RUE Spontaneous Movement LLE Spontaneous Movement RLE Spontaneous Response Eye Opening Spontaneously Motor Response-Adult Obeys commands Verbal Response-Adult Oriented and converses Roosevelt Coma Score 15 Neuro WNL except Eyes and Movements Conjugate gaze: Move in same direction at same speed Memory Intact Swallow - Neuro Normal . Evaluation AO x 4, follows simple commands, Face and smile symmetric with tongue midline. speech is clear, +PERRL EOM and visual thayer int moves RUE, RLE strength 4/5, LUE 1/5, LLE 0/5. Lungs CTA on RA, +BS x 4. padilla catheter in place due to failed voiding trial last shift. pt denies numbness, tingling, N/V, pain or vision problems. bed locked, in lowest position, non slip footwear on, bed alarm on, call king within reach, safety maintained. the plan is for ambulance to pick pt up and d/c to [facility] around noon. PIV d/c'd tip intact, no s/s of infection. . * Deshawn BUSBY, Maribel: PERFORM, SIGN, VERIFY Event Display: Progress Note Hospital Authored Date: 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 Age: 73 years Sex: Female : 1950 Associated Diagnoses: None Author: Maribel Hess RN Findings Problem Related to Alteration in Neurological : Alteration in Neurological Function/new 03/11/2024 21:00 EDT Alteration in Neuro status Related to Other: r/o seizure vs stroke Goals & Outcomes, Neurological Pt is safe with transfers & activities, Pt will be discharged without infection, Pt will be hemodynamically stable, Pt will be Neurologically stable, Pt will maintain intact skin integrity, Pt will remain free from injury, Pt will resume/maintain adequate cardiac output, Pt will state importance of adhering to medication regime, Pt/caregiver will receive psyc hosocial support as needed, Pt/caregiver will state understanding aspiration precautions, Pt/caregiver will state understanding dietary modifications Interventions, Neurological Assess/monitor neurologic status, Assess/monitor VS per unit standards & prn, Call/Report variances in assessments to provider Goals/Interventions, Neurological Yes Neurological, Problem Start 03/07/2024 19:53 Reviewed plan with, Neurological Patient Patient Progression, Neurological Pt progressing according to plan . Nursing Data Neurological Data. : Neurological Data. 03/11/2024 20:00 EDT Tongue Disposition Midline Level of Consciousness Full Consciousness Orientated to person, place, time Person, Place, Event Facial Symmetry Intact Characteristics of Speech Clear and normal Pupil description, left Round Pupil description, right Round Pupil reaction, left Brisk Pupil reaction, right Brisk Strength LUE 0-No movement Strength RUE 5-Active movement against gravity & full resistance Strength LLE 0-No movement Strength RLE 4-Active movement against gravity & some resistance Tone LUE Flaccid Tone RUE Normal Tone LLE Flaccid Tone RLE Normal Sensation LUE Intact Sensation RUE Intact Sensation LLE Intact Sensation RLE Intact Movement LUE Absent Movement RUE Spontaneous Movement LLE Absent Movement RLE Spontaneous Response Eye Opening Spontaneously Motor Response-Adult Obeys commands Verbal Response-Adult Oriented and converses Roosevelt Coma Score 15 1 - 10 Pain Scale Score 0 Neuro WNL except Eyes and Movements Conjugate gaze: Move in same direction at same speed Swallow - Neuro Normal . Evaluation Patient is alert and oriented x2, clear speech. Lung sounds are clear on room air, able to follow simple commands. Face and smile symmetric with tongue midline.pt denies numbness, tingling, nausea, vision changes-PERRLA- 3mm. Joe Left extremeties are flaccid and bilateral right extremeties are a 4/5, Pt denies sob or chest pain, breathing unlabored, no distress noted. Active bowel sounds x4, softnon-tender abd, pt incontinent of bowel, Padilla catheter placed after a failed voiding trial. Patient is on a diabetic dental soft diet with thin liquidst, takes meds whole in apple sauce.. Last . Skin dry and intact. Tele NSR, + pulse BLE, no edema, + circulation. Frequent turns and repo. Bedin lowest position, call king in reach, bed alarms activated. Safety maintained. . . 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 Age: 73 years Sex: Female : 1950 Associated Diagnoses: None Author: Denys Shields RN Findings Problem Related to Alteration in Neurological : Alteration in Neurological Function/new 03/11/2024 8:00 EDT Alteration in Neuro status Related to Other: r/o seizure vs stroke Goals & Outcomes, Neurological Pt is safe with transfers & activities, Pt will be discharged without infection, Pt will be hemodynamically stable, Pt will be Neurologically stable, Pt will maintain intact skin integrity, Pt will remain free from injury, Pt will resume/maintain adequate cardiac output, Pt will state importance of adhering to medication regime, Pt/caregiver will receive psyc hosocial support as needed, Pt/caregiver will state understanding aspiration precautions, Pt/caregiver will state understanding dietary modifications Interventions, Neurological Assess/monitor neurologic status, Assess/monitor VS per unit standards & prn, Call/Report variances in assessments to provider, Monitor for headaches, nausea, vomiting, Monitor speech fluency, aphasia, word finding difficulty, Physical assessment per unit standards Goals/Interventions, Neurological Yes Neurological, Problem Start 03/07/2024 19:53 Reviewed plan with, Neurological Patient Patient Progression, Neurological Pt progressing according to plan . Nursing Data Neurological Data. : Neurological Data. 03/11/2024 8:00 EDT Neurological Symptoms Weakness or loss of muscle strength Level of Consciousness Full Consciousness Orientated to person, place, time Person, Place, Time, Event Facial Symmetry Intact Characteristics of Speech Clear and normal Pupil description, left Regular Pupil description, right Regular Pupil reaction, left Brisk Pupil reaction, right Brisk Pupil Size, Left 3 mm Pupil Size, Right 3 mm Strength LUE 1-Trace movement Strength RUE 4-Active movement against gravity & some resistance Strength LLE 0-No movement Strength RLE 4-Active movement against gravity & some resistance Tone LUE Normal Tone RUE Normal Tone LLE Flaccid Tone RLE Normal Sensation LUE Intact Sensation RUE Intact Sensation LLE Intact Sensation RLE Intact Movement LUE Spontaneous Movement RUE Spontaneous Movement LLE Absent Movement RLE Spontaneous Response Eye Opening Spontaneously Motor Response-Adult Obeys commands Verbal Response-Adult Oriented and converses Roosevelt Coma Score 15 Neuro WNL except Eyes and Movements Conjugate gaze: Move in same direction at same speed Memory Intact Swallow - Neuro Normal . Evaluation AO x 4, follows simple commands, Face and smile symmetric with tongue midline. speech is clear, +PERRL EOM and visual thayer int moves RUE, RLE strength 4/5, LUE 1/5, LLE 0/5. Lungs CTA on RA, +BS x 4. padilla catheter in place due to failed voiding trial last shift. pt denies numbness, tingling, N/V, pain or vision problems. bed locked, in lowest position, non slip footwear on, bed alarm on, call king within reach, safety maintained. . . Consult note * CheriHaja patton MD T: MODIFY, MODIFY, MODIFY, MODIFY, MODIFY, PERFORM, MODIFY, MODIFY, MODIFY, MODIFY, MODIFY Event Display: Consultation Note Authored Date: 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 Age:??73 Years?Sex:??Female?:??1950?? Chief Complaint/Reason for Consult stroke [facility] 7AM on 03/07/2024, h/o CVA 1 week ago at [place] History of Present Illness 73-year-old woman with reported stroke??1 week ago ([facility]) with residual left hemiparesis and speech changes who??was admitted??from her rehab facility ([facility]) on??03/07/2024??with altered mental status.?? On admission??she was nonverbal, did not follow commands, left??hemiplegia??and repetitive??right-sided movements.?? Admitting head CT consistent with??chronic infarcts in the right parafalcine frontal/parietal lobes.?? No intracranial hemorrhage.?? Reportedly on Eliquis for question atrial fibrillation.?? Evaluated by neurology:?? Differential diagnosis includes??seizures with postictal state (right arm movements??might be??automatisms), toxic metabolic encephalopathy with recrudescence of prior stroke symptoms. ??Low suspicion for acute infarct given no clear new focal deficits.?? MRI pending.?Failed nursing swallow evaluation: NPO.? Review of Systems Patient unable to give review of systems. Physical Exam Vitals & Measurements T:??97.1?F?? HR:??56??(Peripheral)?? RR:??20?? BP:??109/66?? SpO2:??94%?? HT:??152.4??cm?? WT:??78.18??kg?? BMI:??33.66?? General: Very lethargic. ??Eyes closed, did not open during course of exam. No apparent distress. Not following commands ?? HEENT: Cranial Nerves: +/- slight left??central facial droop.? Cardiovascular: RRR. Lungs:??No respiratory distress. Abdomen/GI: Soft. ?? Extremities:?? Edema: None.?? Passive ROM: Normal all limbs.? Neurologic: ?? Follows Commands: None Memory: Unable to assess.?? Language: Nonverbal/nonvocal during course of exam.? Motor Exam:??Spontaneously moving??right upper??and lower extremities.?? Repeatedly rubbing??head and abdomen??during course of exam.?? No spontaneous movements??in left upper and lower extremities. Sensory Exam: Did not??withdraw or grimace left to deep pressure.?? Did withdrawal on right. Positive left Babinski sign. Spasticity Exam: MASH 0 left upper and lower extremities.? Mobility Exam: Dependent bed mobility.? Bedside??Swallow??Evaluation: Not alert enough??to safely assess.?? Did not initiate swallow with stimulation.?? Assessment/Plan 73-year-old woman with reported stroke??1 week ago ([facility]) with residual left hemiparesis and dysarthria who??was admitted??from her rehab facility ([facility]) on??03/07/2024??with altered mental status.?? On admission??she was nonverbal, did not follow commands, left??hemiplegia??and repetitive??right-sided movements.?? Admitting head CT consistent with??chronic infarcts in the right parafalcine frontal/parietal lobes.?? No intracranial hemorrhage.?? Reportedly on Eliquis for question atrial fibrillation.?? Evaluated by neurology:?? Differential diagnosis includes??seizures with pos tictal state (right arm movements??might be??automatisms), toxic metabolic encephalopathy with recrudescence of prior stroke symptoms. ??Low suspicion for acute infarct given no clear new focal deficits.?? MRI pending. ?? Ms. Driver is currently dependent??for mobility and activities of daily living. ?? Failed PM&R bedside swallow evaluation:??Did not??initiate swallow with stimulation and not alert enough to??safely??assess.? Rehabilitation Recommendations: ?? Activity:??With assist as tolerated. Bowel Regimen: Monitor on current regimen. Bladder:??Has Padilla catheter. DVT prophylaxis:??On??enoxaparin. ?? Neurology:??Neurology service following. Pain Management:??Appears comfortable. Spasticity: None, monitor. ?? Swallow: Strict NPO. ?? Current rehab treatment & further recommendations: Ms. Driver is currently unable to participate with skilled therapy. ??Will monitor and initiate??when condition allows??for participation. Speech Therapy:??Will need swallow evaluation when alert. ?? Disposition: Depends on functional progress here.?? Had been??at inpatient rehabilitation ([facility])??prior to this admission. ?? Thank you for the consult. ??We will follow. ?? Problem List/Past Medical History Ongoing Obese class I Procedure/Surgical History No qualifying data available. Home Medications Atorvastatin: 40 mg = 1 tablet, By Mouth, Daily Carvedilol: 12.5 mg = 1 tablet, By Mouth, 2 times a day dapagliflozin: 5 mg = 1 tablet, By Mouth, Daily Fenofibrate: 160 mg = 1 tablet, By Mouth, Daily Insulin Glargine: 30 units, Subcutaneous Injection, Daily at bedtime Isosorbide Mononitrate: 30 mg = 1 tablet, By Mouth, Daily in AM Metformin: 850 mg = 1 tablet, By Mouth, 2 times a day NIFEdipine: 30 mg = 1 tablet, By Mouth, Daily Hospital Medications Medications (21) Active SCHEDULED: (8) Aspirin 300 mg Suppository (Aspirin Supp) ??300 mg, Rectally, Daily Atorvastatin 40 mg Tablet (atorvastatin 40 mg oral tablet) ??40 mg, By Mouth, Daily Ceftriaxone 1 Gm Inj (Ceftriaxone Inj) ??1 Gm, IVPB, Every 24 hours Enoxaparin 30 mg Inj (Enoxaparin Inj) ??30 mg 0.3 mL, Subcutaneous Injection, Every 24 hours Fenofibrate 130 mg Capsule (fenofibrate 130 mg oral capsule) ??130 mg, By Mouth, Daily Insulin Lispro 100 units/mL Inj (Insulin LISPRO Sliding Scale) ??2-10 units, Subcutaneous Injection, 3 times a day before meals Levetiracetam 100mg/ml IVPB (Keppra Inj) ??1,000 mg, IV Push Slowly, Every 12 hours NaCl 0.9% Flush 3ml (NaCL 0.9% Flush) ??3 mL, IV Push, Every 8 hours CONTINUOUS: (0) PRN: (13) Acetaminophen 325 mg Tablet (Acetaminophen Tablet) ??650 mg, By Mouth, Every 4 hours Dextromethorphan-Guaifenesin 20 mg-200 mg/10 mL Liqu UD (Robitussin DM Liquid) ??10 mL, By Mouth, Every 4 hours Dextrose Inj Syringe (Dextrose 50% Inj Syringe (25Gm)) ??12.5 Gm, IV Push Slowly, Every 20 minutes Dextrose Inj Syringe (Dextrose 50% Inj Syringe (25Gm)) ??25 Gm, IV Push Slowly, Every 15 minutes Docusate Sodium 100 mg Capsule (Docusate Sodium Capsule) ??100 mg 1 capsule, By Mouth, 2 times a day Glucagon 1 mg Inj (Glucagon Inj) ??1 mg, Intramuscular, Once Glucose 40% Gel (15 Gm) (Glucose Gel) ??15 Gm, By Mouth, Every 20 minutes Glucose 40% Gel (15 Gm) (Glucose Gel) ??30 Gm, By Mouth, Every 20 minutes Melatonin 3 mg Tablet (Melatonin Tablet) ??3 mg, By Mouth, Daily at bedtime NaCl 0.9% Flush 3ml (NaCL 0.9% Flush) ??3 mL, IV Push, Every 8 hours Polyethylene Glycol 17 Gm Powder (MiraLax Powder) ??17 Gm 1 pack/packet, By Mouth, Daily Senna Tablet ??8.6 mg 1 tablet, By Mouth, 2 times a day Simethicone 80 mg Chewable Tablet (Simethicone Tablet) ??80 mg, Chew, 3 times a day Radiology CT Head 03/07/24 - IMPRESSION:?? Suspect chronic infarcts in the right parafalcine frontal/parietal lobes. May consider further assessment using MRI as needed. No intracranial hemorrhage. Lab Results PM&R Labs WBC: 10.6 k/mm3 (03/08/24) Platelet Count: 398 k/mm3 (03/08/24) Sodium: 144 mmol/L (03/08/24) BUN:??49 mg/dL??High (03/08/24) Creatinine-Blood:??2.05 mg/dL??High (03/08/24) AST (SGOT): 17 units/L (03/07/24 14:49:00) * Kellie Cummings MD: PERFORM Event Display: Consultation Note Authored Date: 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 Age:??73 Years?Sex:??Female?:??1950?? Chief Complaint/Reason for Consult AMS, repetitive movements of the right arm History of Present Illness 73-year-old female with reported recent??stroke??1 week ago with residual left hemiparesis ans speech changes who presents with altered mental status.?? Reported last known normal 7 AM this morning.?She is currently at a skilled nurse facility where she was noted to be less responsive and less verbal than baseline after lunch. She was medicated with Versed prior to CT scan due to frequents movements. ??During my evaluation, she was drowsy, and required multiple stimulation to open the eyes,??she was nonverbal and did not follow commands. ??She was noted to have??normal horizontal movements,??profound weakness of the left extremities??and??good strength of the right extremities with repeated movements of the right arm, either??rubbing/scratching??her??abdomen or??rubbing her head. Review of Systems Unable to obtain review of systems given altered mental status. Physical Exam Vitals & Measurements T:??97.9?F?? HR:??71??(Peripheral)?? RR:??18?? BP:??166/78?? SpO2:??95%? General Examination: Seemed to be in distress with frequently rubbing her head and the abdomen. Breathing is unlabored. ?? Neurological Examination: ?? NIHSS Level of Consciousness for Stroke Scale : ?Not alert: requires repeated stimulation to attend rain obtunded?? Response Month/Age : ?Answers neither question correctly?? Response Open/Close Eyes : ?Performs neither task correctly?? Best Gaze : ?Normal?? Visual : ?No visual loss?? Facial Palsy : ?Normal symmetrical movements?? Motor Function Left Arm : ?No movement?? Motor Function Right Arm : ?Some effort against gravity?? Motor Function Left Leg : ?No movement?? Motor Function Right Leg : ?Some effort against gravity?? Limb Ataxia : ?Absent?? Sensory : ?Normal; no sensory loss?? Best Language : ?Severe aphasia?? Dysarthria NIH Stroke Scale : ?Normal?? Extinction and Inattention : ?No abnormality?? NIH Stroke Scale Score : ?20 ? Mental Status: ??Not alert,??requires repeated stimulation to attend. ??Nonverbal, does not follow commands. Cranial Nerves: Pupils equal, normal horizontal movement noted, no clear visual field deficit noted, face seems symmetric, non verbal. Motor: Dense left??hemiplegia (baseline from recent stroke), antigravity movement of right extremities with good strength. Sensory: Reacts to touch in 4 extremities. Coordination: No ataxia noted in the right arm. Gait: Deferred. Assessment/Plan 73-year-old female with reported recent??stroke??1 week ago with residual left hemiparesis ans speech changes who presents with altered mental status and repetitive right arm movements.??During my evaluation, she was drowsy, and required multiple stimulation to open the eyes,??she was nonverbal anddid not follow commands. ??She was noted to have??normal horizontal movements,??profound weakness of the left extremities??and??good strength of the right extremities with repeated movements of the right arm, either??rubbing/scratching??her??abdomen or??rubbing her head. POC glucose 98.?? Per my review, CT head is negative for acute intracranial bleeding or large territorial acute infarct and shows hypodense areas in the right medial frontal lobe which may correlate with her recent??stroke; CTA??with no intracranial LVO and carotid arteries widely patent at the neck.? I reviewed the paperwork that was sent from??her rehab facility??which??does not include any paperwork from her recent admission to??[facility].?? Eliquis is listed as??one of her medications.?? Daughter??tells me that she was started on Eliquis given her recent stroke, however,??she is not aware that her mother has atrial fibrillation. ?? Differential diagnosis includes??seizures with postictal state (right arm movements??might be??automatisms), toxic metabolic encephalopathy with recrudescence of prior stroke symptoms. ??Low suspicion for acute infarct given no clear new focal deficits. ??She is not a candidate for acute cerebral re perfusion therapies given outside time window for thrombolytics, use of Eliquis, low suspicion for new stroke and there is no target for endovascular intervention. ? - Infectious/toxic/metabolic workup per ED team ?-??NPO until swallow evaluation is complete ?- ASA 300mg rectally until cleared for oral, then can continue home Eliquis ? - Keppra 1500 mg??IV load and then continue 1000 mg twice daily ?- Telemetry ?- MRI brain, bedside EEG ?- Check Lipid panel, HbA1c?- Permissive hypertension for today??then gently treat towards normotension. ?-??Rehab considered: PM&R consult needed ?- DVT prophylaxis with LMWH/Heparin subcutaneous??and SCDs ?- Stroke education provided ? - Please obtain??records from her recent admission to [facility]??and upload brain images to [facility]. ?? I discussed her case with ED provider. ?? Elizabeth GriffinD Attending Vascular Neurology Department of Neurosciences ? Problem List/Past Medical History Ongoing No qualifying data Procedure/Surgical History No qualifying data available. Home Medications PredniSONE: See Instructions, 4 tablets po x 3 days, then 3 tabs po x 3 days, then 2 tabs po x 3 days, then 1 tab po x 3 dayswith food Allergies penicillins Family History No family history recorded. Note * Lovely Acosta RN: PERFORM Event Display: Discharge/Transfer Note Hospital Authored Date: [id number] Nursing Discharge Note Entered On: 03/12/2024 14:23 EDT Performed On: 03/12/2024 14:25 EDT by Lovely Acosta RN Nursing Discharge Note 2 Discharge Time : 03/12/2024 14:25 EDT Discharge Level of Care at Discharge : Short-term Acute Inpatient Discharge Nursing Homes/Rehab Facilities : [facility] [place] Patient Left Unit Via : Ambulance Patient Accompanied Off Unit with : Ambulance/[facility] Personnel Handover Given to Transport Personnel : Yes DC Instructions Provided & Signed by Pt : No Patient Understands D/C Instructions : No Patient Instructions Discharge Signed : No Did Pt have Specialty Bed or Wound Vac : No Lovely Acosta RN - 03/12/2024 14:21 EDT * Cynthia Blevins MD: PERFORM, MODIFY Event Display: Discharge/Transfer Note Hospital Authored Date: [id number] 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 Age:??73 Years?Sex:??Female?:??1950?? 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 (I63.429) Acute metabolic encephalopathy (G93.41) Catheter-associated urinary tract infection (T83.511A) Type 2 diabetes mellitus with diabetic nephropathy, with long-term current use of insulin (E11.21) CKD stage 4 due to type 2 diabetes mellitus (E11.22) Chronic diastolic heart failure (I50.32) Hypercholesterolemia (E78.00) Hypertension (I10) Anemia of chronic disease (D63.8) _ Discharge Medications Acetaminophen (acetaminophen 325 mg oral tablet)?650?Milligram?By Mouth?Every 4 hours?as needed?Temperature Greater than 100.5?Pain , Mild Amlodipine (amLODIPine 5 mg oral tablet)?5?Milligram?By Mouth?Daily apixaban (apixaban Starter Pack 5 mg oral tablet)?5?Milligram?By Mouth?2 times a day Aspirin (Aspirin Tablet)?81?Milligram?By Mouth?Daily Atorvastatin (atorvastatin 40 mg oral tablet)?1?tab(s)?40?Milligram?By Mouth?Daily Carvedilol (carvedilol 12.5 mg oral tablet)?12.5?Milligram?1?tablet?By Mouth?2 times a day Cephalexin (cephalexin monohydrate 500 mg oral capsule)?500?Milligram?By Mouth?Every 12hours?? x 4 days?? Docusate (Docusate Sodium Capsule)?100?Milligram?1?capsule?By Mouth?2 times a day?as needed?Constipation Fenofibrate (fenofibrate 160 mg oral tablet)?1?tab(s)?160?Milligram?By Mouth?Daily Insulin Glargine (Lantus Inj)?0.1?Milliliter?10?unit(s)?Subcutaneous Injection?Daily at bedtime Insulin Lispro (insulin lispro 100 u/ml subcutaneous injection)?2-10 units?Subcutaneous Injection?3 times a day before meals?<< Sliding Scale Comments >>150 - 199 ?? 2 units Call if less than [id number] - [phone] ?? 4 units 250 - 299 ?? 6 units 300 - 349 ?? 8 units 350 - 399 ?? 10 units Call if greater than 400<< Sliding Scale Comments >> Isosorbide Mononitrate (isosorbide mononitrate 30 mg oral tablet, extended release)?1?tab(s)?30?Milligram?By Mouth?Daily in AM Melatonin (melatonin 3 mg oral tablet)?6?Milligram?By Mouth?Every 24 hours Polyethylene Glycol 3350 (MiraLax Powder)?1?pack/packet?17?gram?By Mouth?Daily?as needed?Constipation ? Quality Measures Stroke Quality Measures:?Statin Prescribed at Discharge:??Active Home Med for Statin ? Medications Discontinued ?? Farxiga?? - discontinued at dc due to recurrent UTI?? Metformin - discontinued at Dc due to advanced CKD ?? Doses Changed ?? lantus decreased to 10 u from 30 PCP Follow-Up/Heads-Up continue high intensity statin and repeat lipid panel in 4-6 weeks outpatient ?? Hospital Course ?? 73-year-old female with reported recent stroke 1 week ago, pAFib on Eliquis, HF, DM2, with residualleft hemiparesis and speech changes who presents with altered mental status and repetitive right arm movements, POC 98 on arrival. Found to have elevated creatinine, + UTI, started on ceftriaxone. course c/b NPO status in setting of SGLP2 inhibitors and hypoglycemic episode overnight requiring acute intervention. Pt GCS 6-8 at best, consistently nonverbal, left plegic, right side with repetitive movements (swiping hand across top of head or left abdomen.) throughout day/night. R extremities with strength and antigravity abilities.?CT head is negative for acute intracranial bleeding or large territorial acute infarct and shows hypodense areas in the right medial frontal lobe which may correlate with her recent stroke; CTA with no intracranial LVO and carotid arteries widely patent at the neck. She was OOW and not a candidate for TNK given on Eliquis, ??>4 hr from [facility], no LVO for intervention consideration. Found to have, + UTI, started on ceftriaxone.? 03/08/24 MRI Brain showed ??Patchy subacute infarction in the right HELENA territory, predominantly involving the medial right frontal and parietal lobes, with areas of petechial hemorrhage. No significant mass effect.?? Additional small foci of acute/subacute infarction in the right cerebellum. Involvement of multiple vascular territories raises concern for cardioembolic source. ?? Neurology signed off with recommendations:?? EEG is moderately abnormal due to the excessive slowing often as TPWs, nonspecific indicators of??diffuse or multifocal cerebral dysfunction as might be??seen with a toxic or metabolic encephalopathy. ??No??epileptiform activity or persistent focal asymmetries occurred.??Recommend discontinue Keppra at this time. Etiology of AMS is likely metabolic dysfunction in the setting of recently injured brain, hypoglycemic episodes, UTI and possible delirium.No further neurological recommendations. ?? patient improved with treatment of UTI.?? Urine culture grew ECOLI .?? creatine appeared to fluctuate but remained stable around recent?baseline. presented with padilla which was removed due to utibut pt was retaining again hence replaced. ?? Objective Assessment and Plan ?? Recent?? Acute ischemic right HELENA stroke ??(I63.521) Stroke due to embolism of anterior cerebral artery ??(I63.429) -diagnosed at [facility] and not qualify for thrombolytics or thrombectomy, with dense L hemiparesis, repeat brain MRI confirmed the same suspecting embolic nature, reviewed records from [place], there is no diagnosis of A-fib but given embolic nature neurology there recommended Eliquis and outpatient Holtor monitor, did review this with our neurology and they agreed. patient was discharged from [facility] on aspirin + eliquis +pravastatin resumed Eliquis and ASA -LDL not at goal, continue high intensity statin and repeat lipid panel in 4-6 weeks outpatient pravastatin was switched to?? atorvastatin at admission, continue -passed [employer] eval for diet, CM consulted plan to discharge back to rehab -patient has PCP and cardiology follow up in place from [place] ?? Acute metabolic encephalopathy ??(G93.41) resolved -repeated but stereotypical movement of R arm (brushing air alternating with tapping the abdomen), does not appear to be automatism from seizure, EEG also did not show epileptiform Keppra stopped -suspect acute encephalopathy in the setting of UTI, recent stroke, frequent change of surroundings(admitted at [facility] twice then rehab), mentation now improved?? -provide frequent reorientation, schedule melatonin at 7pm ?? Catheter-associated urinary tract infection ??(T83.511A) Urinary retention?? -catheter placed 03/04 at [facility]ing facility, Urine culture??grew ??Ecoli. ceftriaxonex 4 days >> keflex -Padilla removed 03/09 but has required straight cath repeatedly?? padilla replaced overnight? Type 2 diabetes mellitus with diabetic nephropathy, with long-term current use of insulin ??(E11.21) home regimen: Farxiga?? - discontinued at pr due to recurrent UTI?? Metformin - discontinued at [facility] due to advanced CKD Lantus 30 u daily >> decreased to 10u due to low Bg Sliding scale insulin? CKD stage 4 due to type 2 diabetes mellitus ??(E11.22) Cr at [place] around 2.2 mg/dL cr at presentation 1.9 >>2.3??>>2.3>>2.0?? was started on IV?? no?? change in cr.?? noted to have urinary retention yesterday and padilla placed over night renal us -?? medicorenal disease no obstructions. DC ivf , euvolemic. Creatinine has remained stable around the baseline of 2.2? Chronic diastolic heart failure ??(I50.32) -clinically euvolemic ?? Hypercholesterolemia ??(E78.00) Hypertension ??(I10) Coreg, Imdur resumed?? was on Nifedipine 30 mg daily prior to admission,??seems to have been??replaced with amlodipine this??admission.?? bp stable will continue at pr. ?? Measurements?? Height: 152.4 cm (03/12/24) Weight: 78.18 kg (03/07/24) Dry Weight: 78.18 kg (03/07/24) Body Mass Index:??33.66 kg/m2??Critical (03/07/24) ? Vital Signs?? Temperature: 98.2 DegF (03/12/24 07:48:00) Temperature Route: Oral (03/12/24 07:48:00) Pulse Rate: 59 bpm (03/12/24 07:48:00) Respiratory Rate: 16 br/min (03/12/24 07:48:00) Systolic Blood Pressure:??147 mm Hg??High (03/12/24 07:48:00) Diastolic Blood Pressure: 79 mm Hg (03/12/24 07:48:00) Blood pressure sites: Arm, left (03/12/24 07:48:00) Mean Arterial Pressure: 102 mm Hg (03/12/24 07:48:00) Pulse Pressure: 68 mm Hg (03/12/24 07:48:00) Oxygen Saturation: 98 % (03/12/24 07:48:00) Mode of Delivery (Oxygen): Room air (03/12/24 07:48:00) Early Warning Score: 0 (03/12/24 08:52:10) ? . Physical Exam Constitutional: Alert, in no acute distress. Mental Status: Oriented to person, place and time. Respiratory: Clear to auscultation No wheezing, rales or rhonchi. Cardiovascular: S1 S2 regular. Gastrointestinal: Abdomen soft, non-tender, non-distended. Neurologic: No new??focal neurological deficits. has Left upper and lower ext weakness, able to move left hand fingers but unable to make a fist.? Rt upper lower ext strength 5/5/?? Musculoskeletal: No Leg edema?? Pending Results Add On Lab Order ordered on 03/07/2024 Add On Lab Order ordered on 03/07/2024 Follow-Up Appointments Added Follow Up ?Time Frame ?Comments Not on Staff, PCP?1-2 day: call to discuss follow up visit Home Health Face to Face ^HomeHealthFTF Results Discharge Labs BACTERIOLOGY Urine Culture Results Final report (Abnormal)?? 03/07/2024 16:59 ? BLOOD BANK Blood Type A Positive ()?? 03/07/2024 14:00 Antibody Screen Negative ()?? 03/07/2024 14:00 ?? BLOOD COUNT & DIFF WBC 8.4 k/mm3 ()?? 03/10/2024 06:53 RBC 3.29 m/mm3 (Low)?? 03/10/2024 06:53 Hgb 9.4 Gm/dL (Low)?? 03/10/2024 06:53 Hct 29.7 % (Low)?? 03/10/2024 06:53 MCV 90.3 femtoliters ()?? 03/10/2024 06:53 MCH 28.6 pg ()?? 03/10/2024 06:53 MCHC 31.6 g/dL (Low)?? 03/10/2024 06:53 Platelet Count 336 k/mm3 ()?? 03/10/2024 06:53 RDW-SD 51.4 femtoliters (High)?? 03/10/2024 06:53 MPV 10.4 femtoliters ()?? 03/10/2024 06:53 Nucleated RBC (Automated) 0.0 #/100 WBC'S ()?? 03/10/2024 06:53 Abs. NRBC 0.0 k/mm3 ()?? 03/10/2024 06:53 Abs. Neut 7.7 k/mm3 (High)?? 03/07/2024 14:49 Abs. Lymph 1.7 k/mm3 ()?? 03/07/2024 14:49 Abs. [place] 0.5 k/mm3 ()?? 03/07/2024 14:49 Abs. Eo 0.6 k/mm3 (High)?? 03/07/2024 14:49 Abs. Baso 0.0 k/mm3 ()?? 03/07/2024 14:49 Neut % 69.3 % ()?? 03/07/2024 14:49 Lymph % 15.5 % ()?? 03/07/2024 14:49 [place] % 4.1 % (Low)?? 03/07/2024 14:49 Eos % 5.1 % ()?? 03/07/2024 14:49 Baso % 0.4 % ()?? 03/07/2024 14:49 Platelet Estimate ADEQUATE ()?? 03/07/2024 14:49 Imm Gran 5.6 % ()?? 03/07/2024 14:49 Abs. Imm Gran 0.6 k/mm3 ()?? 03/07/2024 14:49 ? CARDIAC High Sensitivity Troponin (HSTnT) 34 ng/L (High)?? 03/07/2024 16:48 ? CHEM GENERAL Sodium 140 mmol/L ()?? 03/12/2024 06:32 Potassium 4.8 mmol/L ()?? 03/12/2024 06:32 Chloride 107 mmol/L ()?? 03/12/2024 06:32 Bicarbonate Level 22 mmol/L ()?? 03/12/2024 06:32 Anion Gap 11 ()?? 03/12/2024 06:32 Glucose Level 122 mg/dL (High)?? 03/12/2024 06:32 Glucose, POC 115 mg/dL (High)?? 03/12/2024 06:59 Hemoglobin A1C (Monitoring) 9.6 % (High)?? 03/07/2024 14:49 BUN 44 mg/dL (High)?? 03/12/2024 06:32 Creatinine-Blood 2.07 mg/dL (High)?? 03/12/2024 06:32 Estimated GFR Creatinine 25 ML/MIN/1.73 M2 ()?? 03/12/2024 06:32 Calcium 10.0 mg/dL ()?? 03/12/2024 06:32 Phosphorus 3.8 mg/dL ()?? 03/10/2024 06:53 Magnesium 2.4 mg/dL (High)?? 03/09/2024 08:13 Protein, Total 6.5 Gm/dL ()?? 03/09/2024 08:13 Albumin 3.7 Gm/dL ()?? 03/09/2024 08:13 AG Ratio 1.3 ()?? 03/09/2024 08:13 Alkaline Phosphatase 72 units/L ()?? 03/09/2024 08:13 AST (SGOT) 21 units/L ()?? 03/09/2024 08:13 ALT (SGPT) 9 units/L ()?? 03/09/2024 08:13 Bilirubin, Total 0.2 mg/dL ()?? 03/09/2024 08:13 Vitamin B12 Level 1327 pg/mL (High)?? 03/10/2024 06:53 Folic Acid Level 6.5 ng/mL ()?? 03/10/2024 06:53 Lactate 0.9 mmol/L ()?? 03/07/2024 14:49 Iron Level 52 mcg/dL ()?? 03/10/2024 06:53 Iron Binding Capacity, Unsaturated 118 mcg/dL ()?? 03/10/2024 06:53 Iron Binding Capacity, Estimated Total 170 mcg/dL ()?? 03/10/2024 06:53 % Iron Saturation 31 % ()?? 03/10/2024 06:53 Ferritin Level 413 ng/mL (High)?? 03/10/2024 06:53 ? COAG INR 1.2 (High)?? 03/07/2024 14:49 Protime (PT) 12.4 seconds (High)?? 03/07/2024 14:49 APTT 33.9 seconds (High)?? 03/07/2024 14:49 ? HEME OTHER Hold Lavender Top SPECIMEN DISCARDED AFTER 24 HOURS. ()?? 03/12/2024 06:32 ? LIPID STUDIES Cholesterol 173 mg/dL ()?? 03/08/2024 07:00 Triglycerides 182 mg/dL (High)?? 03/08/2024 07:00 HDL Cholesterol 46 mg/dL ()?? 03/08/2024 07:00 LDL Cholesterol 91 mg/dL ()?? 03/08/2024 07:00 Non HDL Cholesterol 127 mg/dL ()?? 03/08/2024 07:00 ? UA/URINALYSIS Appear/Color, Urine LIGHT YELLOW ()?? 03/07/2024 16:59 Specific [place], Urine 1.038 (High)?? 03/07/2024 16:59 pH, Urine 6.0 ()?? 03/07/2024 16:59 Albumin, Urine 3+ (Abnormal)?? 03/07/2024 16:59 Glucose, Urine 4+ (Abnormal)?? 03/07/2024 16:59 Ketones, Urine NEGATIVE ()?? 03/07/2024 16:59 Bilirubin, Urine NEGATIVE ()?? 03/07/2024 16:59 Hemoglobin, Urine 3+ (Abnormal)?? 03/07/2024 16:59 Nitrite, Urine POSITIVE (Abnormal)?? 03/07/2024 16:59 Leukocyte, Urine 3+ (Abnormal)?? 03/07/2024 16:59 Urobilinogen NORMAL mg/dL ()?? 03/07/2024 16:59 WBC's, Urine 155 /HPF (High)?? 03/07/2024 16:59 RBC's, Urine >182 /HPF (High)?? 03/07/2024 16:59 Bacteria HEAVY HPF (Abnormal)?? 03/07/2024 16:59 Squamous Epith 1 /HPF ()?? 03/07/2024 16:59 Amorphous Crystals SLIGHT /HPF ()?? 03/07/2024 16:59 Mucus SLIGHT /LPF ()?? 03/07/2024 16:59 WBC Clumps SLIGHT /HPF ()?? 03/07/2024 16:59 Hold Urine Culture Testing available 48 hours from time of collection. ()?? 03/07/2024 16:59 ? URINE OTHER Est Creatinine Clearance 17.91 mL/min ()?? 03/12/2024 08:07 Urine Culture Specimen Source URINE ()?? 03/07/2024 16:59 Urine Culture Isolate 1 Escherichia coli (Abnormal)?? 03/07/2024 16:59 Urine Cult Antimicrobial Susceptibility Comment ()?? 03/07/2024 16:59 ? _45 minutes spent on discharge * Yeimi Sanchez RN: PERFORM, SIGN, VERIFY Event Display: Case Management Discharge Plan Authored Date: 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 Age: 73 years Sex: Female : 1950 Associated Diagnoses: None Author: Yeimi Sanchez RN Discharge Plan Case Management Discharge Plan : Case Management Discharge Plan Data 03/12/2024 10:22 EDT Discharge Level of Care at Discharge Short-term Acute Inpatient Discharge Nursing Homes/Rehab Facilities [facility] Discharge Transportation Arranged [facility] [address] [facility] [id number] [phone] Discharge Arranged Transport Date/Time 03/12/2024 12:00 Mode of Transportation Arranged Ambulance * Janell Medel RN: PERFORM Event Display: Patient Education/Instruction Authored Date: [id number] Inpatient Adult Discharge Instructions. [address] [address] Name: RUDY ??REZA DRIVER : 1950?? Visit: 03/07/2024 15:47?? Current Date: 03/12/2024 11:16 ?? Account: [id number]?? Inpatient Adult Discharge Instructions We would like to thank you for allowing us to assist you with your healthcare needs. The following includes patient education materials and information regarding your injury/illness. Our entire staffstrives to provide an excellent experience for our patients and their families. PLEASE ENSURE YOU FOLLOW-UP PER THE INSTRUCTIONS BELOW! ?? YOUR OPINION IS IMPORTANT TO US! Please complete the survey you may receive by mail or email. Your feedback will be used to make improvements to the healthcare experiences of our patients and their families. Surveys are administered by [employer] ?? If further treatment with your primary care physician or another doctor is recommended, it is important for you to keep the appointment. Call your primary care physician or return to the Emergency Department immediately if your condition worsens, fails to improve, or new symptoms develop. If you need to find a doctor, you can call [facility] for a referral at [phone] or toll free at [phone]) or log in to [email or web address].. ?? [facility], in keeping with [facility] guidance, no longer requires face masks for staff, patientsor visitors in most situations. Similiar to time spent indoors at other locations, there is the chance that you were exposed to repiratory viruses during your time with us (such as flu or COVID-19). If you develop symptoms concerning for a viral respiratory infection, please seek testing (and treatment if indicated) from your medical provider or home test kit. ?? You can view and manage your care through the patient portal or by using a [facility] care [facility] of your choosing. [employer] is a website that allows you to securely view your medical information including your hospital discharge summary, office visit summaries, medications and follow-up visits. You can also request appointments, renew medications, and request access to your medical information using a health care [facility] of your choosing, or just ask a question. You can enroll at [email or web address] or register during your next office visit. You have been discharged from [facility], Patient Care Unit: D5A??. If you have any questions regarding these instructions, including results of studies pending, afteryou leave, please call us and we will be happy to assist you 20/05. [facility] Your Care Team Attending Physician Cynthia Blevins MD?? Consulting Providers Cynthia Blevins MD?? Discharging Providers Cynthia Blevins MD Reason for Your Visit stroke [facility] 7AM on 03/07/2024, h/o CVA 1 week ago at [place]?? 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 You may have had other tests and procedures not included in this list. Please discuss all test results with your provider. AST B12 Vitamin Level Basic Metabolic Panel CBC CBC w/ Differential Comprehensive Metabolic Panel Creatinine Ferritin Folate Level GLUCOSE POC HEMOGLOBIN A1C High??Sensitivity??Troponin T HOLD LAVENDER TUBE Iron + Iron Binding Capacity Lactate Level Lipid Panel Magnesium Level Phosphorus Level PT (INR) PTT Troponin T, High Sensitivity Type and Screen Urinalysis w/hold for Urine Culture Urine Culture Result Urine Culture, Routine CT Angio Head Hyperacute Stroke CT Angio Neck Hyperacute Stroke CT Head-Hyper Acute Stroke MRI Brain W+W/O Contrast Portable Chest US Renal Comp Add On Lab Order?? Primary Care Provider Not on Staff, PCP?? Advance Directive Health Care Proxy on File Yes - Health Care Proxy Caregiver Relationship: Daughter Name of Caregiver: Jerri Lu Patient has a Designated Caregiver: Yes Discharge Vitals Temperature: 98.2 DegF Height: 152.4 cm Pulse Rate: 63 bpm Weight: 78.18 kg Respiratory Rate: 16 br/min Body Mass Index:??33.66 kg/m2??Critical Systolic Blood Pressure:??147 mm Hg??High Body surface area: 1.82 Systolic Blood Pressure:??147 mm Hg??High ?? Diastolic Blood Pressure: 79 mm Hg ?? Diastolic Blood Pressure: 79 mm Hg ?? Oxygen Saturation: 98 % ?? Studies Pending All studies ordered during this hospital stay have been completed unless listed below. Please discuss all pending results with your provider listed above in these instructions. ?? Add On Lab Order?? What to do next Instructions From Your Doctor Continue keflex??for 4 days? Please follow up with plate gauger and??your neurologist as recommended by [facility]? Orders? 03/12/24 9:56:00 EDT?? You Need to Schedule the Following Appointments Follow Up with??Not on Staff, PCP When:??Within 1-2 day: call to discuss follow up visit Discharge Medications RUDY DRIVER REZA :1950 Visit Date:03/07/2024 Medications: Please continue your medications until treatment is completed or stopped by your provider. Medications not listed below should be discontinued. Discuss any questions related to medications with your provider. What How Much When Instructions Next Dose New Acetaminophen (acetaminophen 325 mg oral tablet) 650 Milligram Oral Every 4 hours as needed for Pain , Mild Temperature Greater than 100.5 ?? As needed, not given New Amlodipine (amLODIPine 5 mg oral tablet) 5 Milligram Oral Daily Tomorrow 03/13/24 at 9am New apixaban (apixaban Starter Pack 5 mg oral tablet) 5 Milligram Oral Twice a day Today 03/12/24 at 9pm New Aspirin (Aspirin Tablet) 81 Milligram Oral Daily Tomorrow 03/13/24 at 9am New Cephalexin (cephalexin monohydrate 500 mg oral capsule) 500 Milligram Oral Every 12 hours Today 03/12/24 at 9pm New Docusate (Docusate Sodium Capsule) 100 Milligram Oral Twice a day as needed for Constipation As needed, not given New Insulin Lispro (insulin lispro 100 u/ ml subcutaneous injection) 2-10 units Subcutaneous Injection 3 times a day before meals << Sliding Scale Comments >> 150 - 199 ?? 2 units Call if less than 70 200 - 249 ?? 4 units 250 - 299 ?? 6 units 300 - 349 ?? 8 units 350 - 399 ?? 10 units Call if greater than 400 << Sliding Scale Comments >> ?? As directed with meals New Melatonin (melatonin 3 mg oral tablet) 6 Milligram Oral Every 24 hours Today 03/12/24 at 9pm New Polyethylene Glycol 3350 (MiraLax Powder) 17 gram Oral Daily as needed for Constipation As needed, not given Changed Insulin Glargine (Lantus Inj) 10 unit(s) Subcutaneous Injection Daily at Bedtime Today 03/12/24 at 9pm Unchanged Atorvastatin (atorvastatin 40 mg oral tablet) 1 tab(s) Oral Daily Today 03/12/24 at 9pm Unchanged Carvedilol (carvedilol 12.5 mg oral tablet) 1 tab(s) Oral Twice a day Today 03/12/24 at 9pm Unchanged Fenofibrate (fenofibrate 160 mg oral tablet) 1 tab(s) Oral Daily Tomorrow 03/13/24 at 9am Unchanged Isosorbide Mononitrate (isosorbide mononitrate 30 mg oral tablet, extended release) 1 tab(s) Oral Daily in the morning Tomorrow 03/13/24 at 9am ?? What How Much When Comments Stop Taking Colchicine (colchicine 0.6 mg oral tablet) TAKE HALF A TABLET (1/ 2 X 0.6 MG) ORALLY DAILY ?? Stop Taking dapagliflozin (Farxiga 5 mg oral tablet) 1 tab(s) Oral Daily Stop Taking Metformin (metFORMIN 850 mg oral tablet) 1 tab(s) Oral Twice a day Stop Taking NIFEdipine (NIFEdipine 30 mg oral tablet, extended release) 1 tab(s) Oral Daily Stop Taking PredniSONE (predniSONE 10 mg oral tablet) See instructions 4 tablets po x 3 days, then 3 tabs po x 3 days, then 2 tabs po x 3 days, then 1 tab po x 3 days with food ?? Prescription Given During Visit No new medications prescribed at time of discharge.?? Laboratory Results Below is a partial list of the most recent Laboratory test results done prior to this discharge. You may have had other tests and procedures not included in this list. Please discuss all test resultswith your provider. Est Creatinine Clearance - 17.91 mL/min (03/12/2024) AST (03/07/2024) ???AST (SGOT) - 17 units/L B12 Vitamin Level (03/10/2024) ???Vitamin B12 Level - 1327 pg/mL Basic Metabolic Panel (03/12/2024) ???Sodium - 140 mmol/L???Potassium - 4.8 mmol/L???Chloride - 107 mmol/L???Bicarbonate Level - 22 mmol/L???Anion Gap - 11???Glucose Level - 122 mg/dL???BUN - 44 mg/dL???Creatinine-Blood - 2.07 mg/dL???Estimated GFR Creatinine - 25 ML/MIN/1.73 M2???Calcium - 10.0 mg/dL CBC (03/10/2024) ???WBC - 8.4 k/mm3???RBC - 3.29 m/mm3???Hgb - 9.4 Gm/dL???Hct - 29.7 %???MCV - 90.3 femtoliters???MCH - 28.6 pg???MCHC - 31.6 g/dL???Platelet Count - 336 k/mm3???RDW-SD - 51.4 femtoliters???MPV - 10.4 femtoliters???Nucleated RBC (Automated) - 0.0 #/100 WBC'S???Abs. NRBC - 0.0 k/mm3 CBC w/ Differential (03/07/2024) ???WBC - 11.1 k/mm3???RBC - 3.28 m/mm3???Hgb - 9.3 Gm/dL???Hct - 28.6 %???MCV - 87.2 femtoliters???MCH - 28.4 pg???MCHC - 32.5 g/dL???Platelet Count - 380 k/mm3???RDW-SD - 49.1 femtoliters???MPV - 9.9 femtoliters???Nucleated RBC (Automated) - 0.0 #/100 WBC'S???Abs. NRBC - 0.0 k/mm3???Abs. Neut - 7.7 k/mm3???Abs. Lymph - 1.7 k/mm3???Abs. [place] - 0.5 k/mm3???Abs. Eo - 0.6 k/mm3???Abs. Baso - 0.0 k/mm3???Neut % - 69.3 %???Lymph % - 15.5 %???[place] % - 4.1 %???Eos % - 5.1 %???Baso % - 0.4 %???PlateletEstimate - ADEQUATE???Imm Gran - 5.6 %???Abs. Imm Gran - 0.6 k/mm3 Comprehensive Metabolic Panel (03/09/2024) ???Sodium - 145 mmol/L???Potassium - 4.2 mmol/L???Chloride - 109 mmol/L???Bicarbonate Level - 22 mmol/L???Anion Gap - 14???Glucose Level - 80 mg/dL???BUN - 41 mg/dL???Creatinine-Blood - 2.02 mg/dL???Estimated GFR Creatinine - 26 ML/MIN/1.73 M2???Calcium - 10.3 mg/dL???Protein, Total - 6.5 Gm/dL???Albumin - 3.7 Gm/dL???AG Ratio - 1.3???Alkaline Phosphatase - 72 units/L???AST (SGOT) - 21 units/L???ALT (SGPT) - 9 units/L???Bilirubin, Total - 0.2 mg/dL Creatinine (03/11/2024) ???Creatinine-Blood - 2.30 mg/dL???Estimated GFR Creatinine - 22 ML/MIN/1.73 M2 Ferritin (03/10/2024) ???Ferritin Level - 413 ng/mL Folate Level (03/10/2024) ???Folic Acid Level - 6.5 ng/mL GLUCOSE POC (03/12/2024) ???Glucose, POC - 115 mg/dL HEMOGLOBIN A1C (03/07/2024) ???Hemoglobin A1C (Monitoring) - 9.6 % High??Sensitivity??Troponin T (03/07/2024) ???High Sensitivity Troponin (HSTnT) - 31 ng/L HOLD LAVENDER TUBE (03/12/2024) ???Hold Lavender Top - SPECIMEN DISCARDED AFTER 24 HOURS. Iron + Iron Binding Capacity (03/10/2024) ???Iron Level - 52 mcg/dL???Iron Binding Capacity, Unsaturated - 118 mcg/dL???Iron Binding Capacity, Estimated Total - 170 mcg/dL???% Iron Saturation - 31 % Lactate Level (03/07/2024) ???Lactate - 0.9 mmol/L Lipid Panel (03/08/2024) ???Cholesterol - 173 mg/dL???Triglycerides - 182 mg/dL???HDL Cholesterol - 46 mg/dL???LDL Cholesterol - 91 mg/dL???Non HDL Cholesterol - 127 mg/dL Magnesium Level (03/09/2024) ???Magnesium - 2.4 mg/dL Phosphorus Level (03/10/2024) ???Phosphorus - 3.8 mg/dL PT (INR) (03/07/2024) ???INR - 1.2???Protime (PT) - 12.4 seconds PTT (03/07/2024) ???APTT - 33.9 seconds Troponin T, High Sensitivity (03/07/2024) ???High Sensitivity Troponin (HSTnT) - 34 ng/L Type and Screen (03/07/2024) ???Blood Type - A Positive???Antibody Screen - Negative Urinalysis w/hold for Urine Culture (03/07/2024) ???Appear/Color, Urine - LIGHT YELLOW???Specific [place], Urine - 1.038???pH, Urine - 6.0???Albumin, Urine - 3+???Glucose, Urine - 4+???Ketones, Urine - NEGATIVE???Bilirubin, Urine - NEGATIVE???Hemoglobin, Urine - 3+???Nitrite, Urine - POSITIVE???Leukocyte, Urine - 3+???Urobilinogen - NORMAL???WBC's, Urine - 155 /HPF? ?RBC's, Urine - >182 /HPF? ?Bacteria - HEAVY? ?Squamous Epith - 1 /HPF? ?Amorphous Crystals - SLIGHT???Mucus - SLIGHT???WBC Clumps - SLIGHT???Hold Urine Culture - Testing available 48 hours from time of collection. Urine Culture Result (03/07/2024) ???Urine Culture Isolate 1 - Escherichia coli???Urine Cult Antimicrobial Susceptibility - Comment Urine Culture, Routine (03/07/2024) ???Urine Culture Results - Final report???Urine Culture Specimen Source - URINE Allergies (NKA means No Known Allergies) penicillins Problems Active Problems??(1) Obese class I?? Education Materials Below is the list of Educational Leaflet Providered with your Discharge Instructions. [employer] Patient Education - Symptoms of a Stroke?? [employer] Patient Education - What Is Ischemic Stroke??? [employer] Patient Education - What is an Ischemic Stroke??? [employer] Patient Education - The F.A.S.T. Way to Diagnose a Stroke?? Valuables and Belongings I fully understand and agree that [facility] accepts no responsibility for all my personal property including clothing, toilet articles, radios, jewelry, dentures, hearing aids, rings, money, or any other property that is in my possession or is brought to me after admission. I understand certain valuables may be placed in a hospital safe for a short period of time. I understand that the hospital is not liable for loss or damage due to accident, fire, or other natural occurrence while said property is in the safe. I accept full responsibility for any personal property that I keep with me, and will not hold the hospital responsible in case of loss or disappearance. I acknowledge that i have been encouraged to send valuables and belongings home. ?? Review of Valuable and Belonging List: With patient, With witness Date for Pt to Sign Valuables/Belongings: 03/07/24 16:36:00 ?? Other Discharge Information ? Case Management Discharge Plan?? Discharge Plan?? Discharge Level of Care at Discharge: Short-term Acute Inpatient Discharge Transportation Arranged: [facility] [id number] [phone] Mode of Transportation Arranged: Ambulance Discharge Arranged Transport Date/Time: 03/12/24 12:00:00 Discharge Nursing Homes/Rehab Facilities: [facility] ?? Pulmonary Rehab Status?? Pulmonary Rehab Discharge Status?? Respiratory Rate: 16 br/min ? Common Emergency Awareness Tips IS IT A STROKE? Act FAST and Check for these signs: FACE Does the face look uneven? ARM Does one arm drift down? SPEECH Does their speech sound strange? TIME Call at any sign of stroke ?? Heart Attack Signs Chest discomfort: Most heart attacks involve discomfort in the center of the chest and lasts more than a few minutes, or goes away and comes back. It can feel like uncomfortable pressure, squeezing, fullness or pain. Discomfort in upper body: Symptoms can include pain or discomfort in one or both arms, back, neck, jaw or stomach. Shortness of breath: With or without discomfort. Other signs: Breaking out in a cold sweat, nausea, or lightheaded. Remember, MINUTES DO MATTER. If you experience any of these heart attack warning signs, call to get immediate medical attention! ?? Smoking can increase your chances of developing chronic health problems and can cause harmful effects to other family members in your house. If you smoke, you are strongly encouraged to quit. Please call [facility] at [phone] or [phone] ([phone]) or log in to [email or web address] for referrals to smoking cessation programs. ?? 508 Suicide & Crisis Lifeline is available 20/05 if you or someone you know needs to find a reason to keep living. By calling 150 you'll be connected to a skilled, trained counselor at a crisis center in your area. INPATIENT DISCHARGE INSTRUCTIONS SIGNATURE PAGE RUDY DRIVER Location:[facility] Registration Date and Time:03/07/2024 15:47 EDT Primary Care Physician: Not on Staff, PCP Attending Physician: Felicity VIEIRA, Cynthia, RUDY MUNROE, have received the above patient education materials/instructions and have verbalized understanding. If ambulance or transport services are being used I further acknowledge being given a choice of service. ?? If you need to contact me, please call me at this number: . Patient/Skirt Trimmer Name: Patient/Skirt Trimmer Signature: Relationship to Patient: Witness Name/Signature: Date: * Janell Medel RN: PERFORM Event Display: Patient Education Leaflets Authored Date: [id number] Taking Medicine for Diabetes ?? 14135 Taking Medicine for Diabetes Medicine can???t cure diabetes. But??it can delay or prevent health problems. It does this by helping you manage your blood sugar. Taking medicines or having shots every day may seem hard. But they are vital tools to reach your blood sugar goals. Where the medicines work Diabetes medicines work on different parts of the body. Many of them affect how the??pancreas makes??insulin. Others increase how sensitive muscle and fat cells are to??insulin. Or they??keep the liver from releasing too much glucose. Some cause carbohydrates to break down more slowly. Or to be released more slowly from the gut into the blood. One type of medicine stops the kidneys from reabsorbing glucose from urine. The excess glucose then leaves the body via the urine. The diagram on this sheet shows where each class of medicine works in the body. ?? Get familiar with shots Insulin can't be taken as a pill. It's most often injected through the skin to reach the blood. It???s not hard to give yourself shots. You may find that they aren???t as bad as you fear. There are new devices for injecting or inhaling??insulin. Modern insulin pens are accurate. They are also easy to use and nearly pain-free, even for children with diabetes. Ask your provider for more information. ?? Stick to your medicine routine It's important to take your medicines at the right times. This will give you the best control over your blood sugar. Having a medicine and diet routine can help keep your blood sugar steady. Keep track of medicines with a pill organizer. Make a daily schedule. Ask your family to help you stick to amedicine and diet routine. Make it a priority. ?? If you take other medicines Medicines of all types can affect blood sugar. Tell your provider about all medicines you take. This includes prescription and jags-xgn-vzjkxcf medicines, vitamins, herbs, and supplements. Always tell the pharmacist that you have diabetes when buying other medicines. Try to get all your medicines from the same pharmacy or pharmacy chain. This way they are more likely to have a complete list of your medicines. Wear a medical ID alert bracelet or necklace. This is helpful in an emergency. Bring a list of yourmedicines with you to all appointments. Check that your health records are up to date. They should have your current medicines and dosages. You may be able to download your records. ?? Last Reviewed Date: 2024 ?? The [employer]. All rights reserved. This information is not intended as a substitute for professional medical care. Always follow your healthcare professional's instructions. ?? * Janell Medel RN: PERFORM Event Display: Patient Education Leaflets Authored Date: [id number] Apixaban Oral Tablet ?? [address] Apixaban Oral Tablet Brands: Eliquis Uses This medicine is used for the following purposes: ??? blood disorder ??? prevent blood clots ??? treatment of blood clots ??? blood clot ?? Instructions This medicine may be taken with or without food. This medicine will work best if you take it at about the same time every day. Store at room temperature away from heat, light, and moisture. Do not keep in the bathroom. It is important that you keep taking each dose of this medicine on time even if you are feeling well. If you forget to take a dose on time, take it as soon as you remember. If it is almost time for thenext dose, do not take the missed dose. Return to your normal schedule. Do not take 2 doses at one time. Drug interactions can change how medicines work or increase risk for side effects. Tell your healthcare providers about all medicines taken. Include prescription and upfk-kyn-dfykcas medicines, vitamins, and herbal medicines. Speak with your doctor or pharmacist before starting or stopping any medicine. Talk to your doctor before taking other medicines, including aspirins and ibuprofen containing products. Speak to your doctor about which medicines are safe to use while you are on this medicine. It is very important that you follow your doctor's instructions for all blood tests. ?? Cautions This medicine may cause serious bleeding problems in patients taking blood thinner medications. Follow your doctor's instructions carefully to monitor your blood lab tests if you are on blood thinners. Tell your doctor and pharmacist if you ever had an allergic reaction to a medicine. This medicine may cause bleeding from the stomach or bowels. Stop this medicine and call your doctor right away if you have pain in the stomach, red or dark tarry stools, or vomit that looks like coffee grounds. There is an increased risk of bleeding while on this medicine, please tell your doctor or nurse if you notice any excessive bleeding or bruising. Do not use the medication any more than instructed. Please check with your doctor before drinking alcohol while on this medicine. Do not breastfeed while on this medicine. This medicine can hurt a new baby in the womb. If you become while on this medicine, tell your doctor immediately. Your doctor may switch you to a different medicine. Do not take Prabhjot's wort while on this medicine. Do not share this medicine with anyone who has not been prescribed this medicine. Some patients have serious side effects from this medicine. Ask your pharmacist to show you the information from the Food and Drug Administration (FDA) and discuss it with you. Always refill this medicine before it runs out. ?? Side Effects The following is a list of some common side effects from this medicine. Please speak with your doctor about what you should do if you experience these or other side effects. ??? nosebleeds Call your doctor or get medical help right away if you notice any of these more serious side effects: ??? bleeding or bruising ??? coughing up blood or vomit that looks like coffee grounds ??? fainting??? numbness or tingling in hands and feet ??? severe or persistent headache ??? sudden leg pain, swelling, warmth or redness ??? loss of movement anywhere on the body ??? shortness of breath ??? bloody or dark, tarry stools ??? symptoms of stroke (such as one-sided weakness, slurred speech, confusion) ??? difficulty swallowing ??? unusual or unexplained tiredness or weakness ??? blood in urine ??? blurring or changes of vision A few people may have an allergic reaction to this medicine. Symptoms can include difficulty breathing, skin rash, itching, swelling, or severe dizziness. If you notice any of these symptoms, seek medical help quickly. ?? Extra Please speak with your doctor, nurse, or pharmacist if you have any questions about this medicine. ?? [email or web address] IMPORTANT NOTE: This document tells you briefly how to take your medicine, but it does not tell youall there is to know about it. Your doctor or pharmacist may give you other documents about your medicine. Please talk to them if you have any questions. Always follow their advice. There is a more complete description of this medicine available in [place]. Scan this code on your smartphone or tablet or use the web address below. You can also ask your pharmacist for a printout. If you have any questions, please ask your pharmacist. The display and use of this drug information is subject to Terms of Use. Copyright(c) 2023 [employer]. ?? [employer]. All rights reserved. This information is not intended as a substitute for professional medical care. Always follow your healthcare professional's instructions. ?? * Janell Medel RN: PERFORM Event Display: Patient Education Leaflets Authored Date: [id number] Atorvastatin Oral Tablet ?? 59063-799 Atorvastatin Oral Tablet Brands: Lipitor Uses To lower high fat levels in blood. ?? Instructions This medicine may be taken with or without food. Store at room temperature away from heat, light, and moisture. Do not keep in the bathroom. Avoid grapefruit and grapefruit juice while on this medicine. It is important that you keep taking each dose of this medicine on time even if you are feeling well. If you forget a dose, just wait. Use the next dose at the usual time. Do not use 2 doses at once. Drug interactions can change how medicines work or increase risk for side effects. Tell your healthcare providers about all medicines taken. Include prescription and [id number] medicines, vitamins, and herbal medicines. Speak with your doctor or pharmacist before starting or stopping any medicine. Keep all appointments for medical exams and tests while on this medicine. ?? Cautions Tell your doctor and pharmacist if you ever had an allergic reaction to a medicine. Do not use the medication any more than instructed. Please check with your doctor before drinking alcohol while on this medicine. Do not breastfeed while on this medicine. During , this medicine should be used only when clearly needed. Talk to your doctor about the risks and benefits. Do not share this medicine with anyone who has not been prescribed this medicine. ?? Side Effects Call your doctor or get medical help right away if you notice any of these more serious side effects: ??? confusion ??? signs of kidney damage (such as change in urine color or bubbly urine) ??? signs of liver damage (such as yellowing of eye or skin, dark urine, or unusual tiredness) ??? memory problems or loss ??? muscle pain or weakness A few people may have an allergic reaction to this medicine. Symptoms can include difficulty breathing, skin rash, itching, swelling, or severe dizziness. If you notice any of these symptoms, seek medical help quickly. ?? Extra Please speak with your doctor, nurse, or pharmacist if you have any questions about this medicine. ?? [email or web address] IMPORTANT NOTE: This document tells you briefly how to take your medicine, but it does not tell youall there is to know about it. Your doctor or pharmacist may give you other documents about your medicine. Please talk to them if you have any questions. Always follow their advice. There is a more complete description of this medicine available in [place]. Scan this code on your smartphone or tablet or use the web address below. You can also ask your pharmacist for a printout. If you have any questions, please ask your pharmacist. The display and use of this drug information is subject to Terms of Use. Copyright(c) 2023 [employer]. ?? [employer]. All rights reserved. This information is not intended as a substitute for professional medical care. Always follow your healthcare professional's instructions. ?? Patient Care team information Care Team Personnel Name: Pauline Hearn RN Position: S RN Member Role: Primary Care Nurse Name: Not on Staff, PCP Position: S Physician (General Medicine) Member Role: PCP Name: Lovely Acosta RN Position: S RN Member Role: Primary Care Nurse Name: Jace Atkins RN Position: S RN Member Role: Primary Care Nurse Care Team Related Persons Name: PAUL DRIVER Address: [address] [address]
--- NOTE | 2024-04-07 16:55 | MHC.EDTECH ---
bladder scan performed 906 mL
--- NOTE | 2024-04-07 17:04 | ED_ITS ---
HPI - Extremity Problem General Chief complaint: Extremity Problem Stated complaint: LLE PAIN/SWELLING, ?DVT PER EMS Time Seen by Provider: 04/07/24 16:06 Source: patient and EMS Mode of arrival: EMS Limitations: no limitations History of Present Illness HPI Narrative: Patient is a 73-year-old female who presents emergency department with her daughter for evaluation of left lower extremity pain. Daughter reports that 4 days ago she was discharged from [facility] after a stay there following a stroke. Yesterday she began complaining of left calf pain that has worsened throughout today. Daughter reports that she has not ambulatory at this time, she is working with physical therapy. Daughter does state that she missed 3-4 doses of Eliquis after discharge from rehab as she was not sent home with the prescription. Denies any notable precipitating injury. Denies fevers, chills, redness, swelling, chest pain, shortness of breath. Daughter also reports that patient has been experiencing urinary incontinence in the urine appears darker in color with an odor. She does state that she was treated for urinary tract infection while at the rehab facility Related Data Home Medications ?Medication ?Instructions ?Recorded ?Confirmed acetaminophen 500 mg tablet 500 mg PO DAILY PRN Pain 02/06/24 04/07/24 insulin lispro 100 unit/mL 1 sliding scale dose subcut QIDACHS 03/01/24 04/07/24 subcutaneous pen (Humalog KwikPen (U-100) Insulin) amlodipine 5 mg tablet 5 mg PO DAILY 04/07/24 04/07/24 atorvastatin 40 mg tablet 40 mg PO BEDTIME 04/07/24 04/07/24 carvedilol 12.5 mg tablet 12.5 mg PO BID 04/07/24 04/07/24 gemfibrozil 600 mg tablet 600 mg PO BID 04/07/24 04/07/24 insulin glargine 100 unit/mL (3 18 unit subcut BEDTIME 04/07/24 04/07/24 mL) subcutaneous pen (Lantus Solostar U-100 Insulin) isosorbide mononitrate 30 mg 30 mg PO DAILY 04/07/24 04/07/24 tablet,extended release 24 hr melatonin 3 mg capsule 6 mg PO BEDTIME PRN Sleep 04/07/24 04/07/24 multivitamin with minerals 1 tab PO DAILY 04/07/24 04/07/24 Previous Rx's ?Medication ?Instructions ?Recorded lancets 28 gauge (FreeStyle #300 ea 02/06/24 Lancets) blood-glucose meter (FreeStyle #1 ea 02/07/24 Lite Meter kit) blood sugar diagnostic (FreeStyle #100 ea 02/13/24 Lite Strips) blood-glucose meter (FreeStyle #1 ea 02/13/24 Lite Meter kit) lancets 28 gauge (FreeStyle #100 ea 02/13/24 Lancets) pen needle, diabetic 32 gauge x #100 ea 02/13/24 1 apixaban 5 mg tablet (Eliquis) 5 mg PO BID #60 tabs 03/04/24 aspirin 81 mg chewable tablet 81 mg PO DAILY #90 tabs 03/04/24 blood sugar diagnostic (FreeStyle #100 ea 03/13/24 Lite Strips) dapagliflozin propanediol 5 mg 5 mg PO DAILY #30 tabs 04/02/24 tablet (Farxiga) Allergies Allergy/AdvReac Type Severity Reaction Status Date / Time Penicillins [PENICILLINS] Allergy Unknown Rash Verified 04/07/24 12:33 lactose AdvReac Mild Unknown Verified 04/07/24 12:33 shellfish Allergy Mild Unknown Uncoded 04/07/24 12:33 Review of Systems 2 Review of Systems: Yes all other systems are reviewed and are negative PMFSH Past Medical History Attestation statement: The following information was validated with the patient. Source: old records reviewed Medical History SOB (shortness of breath) Gout of big toe Elevated troponin Bilateral wheezing Leg edema Increasing shortness of breath 2+ pitting edema Cataract Hypertension Gout Surgical History History of cholecystectomy H/O: hysterectomy Social History Social History Household Members: Children Housing: Apartment Do you presently have visiting nurse or other home services: No Alcohol intake: former Comment: refusing alarms Patient Tobacco Use Status: Never used Tobacco Second Hand Smoke Exposure: No Advance Directives: Yes Advance Directives Information Provided: Yes Advance Directives on File: No Do you have a plan to hurt others: No Plan service: No Current occupational status: retired Physical Exam 2 Vital Signs: Vital Signs: Last Vital Signs Temp 98.0 F 04/08/24 00:10 Pulse 61 04/08/24 00:10 Resp 18 04/08/24 00:10 BP 126/66 04/08/24 00:10 Pulse Ox 96 04/08/24 00:10 O2 Del Method Room Air 04/08/24 00:10 BMI result Body Mass Index 30.9 Appearance: Alert.?Oriented to person, place and time. No acute distress.?Normal affect. Eyes: Pupils equal, round and reactive to light.? ENT: Pharynx normal.?? Neck: Normal inspection.? Neck supple.?? CVS: Heart sounds normal. Normal heart rate and rhythm.? Pulses normal.?? Respiratory: No respiratory distress.? Lung sounds clear to auscultation bilaterally?? Abdomen: Soft and non-tender. Normoactive bowel sounds. Skin: Skin warm and dry.? Normal skin color.? Extremities: No lower extremity edema.? Left calf tenderness upon palpation. Ecchymosis over the mid anterior pretibial region, tenderness upon palpation. 2+ DP/PT pulse bilaterally. Decreased AROM to left knee left ankle, per daughter baseline since stroke. Neuro: Moves all extremities spontaneously. Sensation intact bilaterally. No focal neuro deficits. Course Reevaluation(s) Reevaluation #1: Bladder scan revealing >900mL, discussed this finding with daughter. Recommended Ponce catheter placement for urinary retention, daughter states that she was discharged from [facility] with a Ponce catheter in place secondary to urinary retention. She states it was removed approximately 1 week prior to [facility]. Recommend replacement of Ponce catheter at this time and outpatient follow-up with Urology. Daughter expresses concerns about her ability to get patient safely to appointments as she has not currently ambulatory and they reside on the 2nd floor. Time: 17:20 Reevaluation #2: On review of labs noted to have leukocytosis with left shift, normocytic anemia at baseline does not meet transfusion criteria, no thrombocytopenia. Hyperkalemia at 5.4 otherwise unremarkable electrolytes; patient received Lokelma 10 mg p.o., CKD stage 4 creatinine near baseline; 2.43 today, BUN however elevated at 81 increased from baseline, suspect this is secondary to significant volume depletion, daughter does admit that she feels as though her mother has been avoiding adequate fluid intake due to the urinary incontinence. 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 Abdominal examination is benign, no reports of hematochezia or melena, do not suspect elevated BUN secondary to GIB. Time: 18:32 Reevaluation #3: Venous duplex ultrasound without evidence of DVT, XR without acute fracture/dislocation. Admitted to Medicine Service, spoke with hospitalist Dr. Kendell Santoro, buddya management also involved in care as daughter expresses concerns about her ability to care for patient at home, she is essentially Ponce care dependent at this point, nonambulatory, and resides on the 2nd floor. Daughter states that they were using a mechanical lift while she was in short- term rehab, daughter has been picking patient up on her home in transferring her. Medications Administered Generic Name Dose Route Start Last Admin Trade Name Freq PRN Reason Stop Dose Admin Acetaminophen 975 mg 04/08/24 00:00 04/07/24 23:39 Acetaminophen 325 Mg Tablet PO 04/08/24 12:01 975 mg Q6H BURTON Administration Apixaban 5 mg 04/07/24 21:30 04/07/24 21:54 Apixaban 5 Mg Tablet PO 5 mg BID BURTON Administration Atorvastatin Calcium 40 mg 04/07/24 21:40 04/07/24 21:54 Atorvastatin Calcium 40 Mg Tablet PO 40 mg BEDTIME BURTON Administration Insulin Glargine 18 unit 04/07/24 21:40 04/07/24 21:54 Insulin Glargine,Hum.Rec.Anlog 100 Unit/Ml 10 Ml Vial SUBCUT 18 unit BEDTIME BURTON Administration Melatonin 3 mg 04/07/24 21:37 04/07/24 21:54 Melatonin 3 Mg Tablet PO 3 mg BEDTIME PRN Administration insomnia Sodium Chloride 3 ml 04/08/24 00:00 04/07/24 23:39 0.9 % Sodium Chloride Flush 3 Ml Syringe IVFLUSH 3 ml QSHIFT BURTON Administration Discontinued Medications Generic Name Dose Route Start Last Admin Trade Name Freq PRN Reason Stop Dose Admin Acetaminophen 975 mg 04/07/24 17:08 04/07/24 17:56 Acetaminophen 325 Mg Tablet PO 04/07/24 17:09 975 mg ONCE ONE Administration Sodium Chloride 1,000 mls @ 999 mls/hr 04/07/24 18:15 04/07/24 19:32 Ns IV 04/07/24 19:15 Infused .Q1H1M BURTON Infusion Ceftriaxone Sodium 1 gm/ 50 mls @ 100 mls/hr 04/07/24 19:39 04/07/24 21:24 Sodium Chloride IV 04/07/24 20:08 Infused ONCE ONE Infusion Sodium Zirconium Cyclosilicate 10 gm 04/07/24 18:03 04/07/24 18:31 Sodium Zirconium Cyclosilicate 10 Gm Powd.Pack PO 04/07/24 18:04 10 gm ONCE ONE Administration Medical Decision Making Medical Decision Making [facility] Narrative: Patient is a 73-year-old female with past medical history of hypertension, T2 diabetes, CKD 4, hyperlipidemia, gout, anemia, diastolic CHF, recent CVA; 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 Pertinent exam findings as per physical exam portion of this note. On review she was admitted to [facility] [place]/[facility]/2024-03/03/2024 with CVA, at that time was started on Eliquis 5 mg twice daily which as per HPI patient did miss 3-4 doses recently prior to the onset of her leg pain. Has notable ecchymosis of unclear etiology. Plan to obtain venous duplex ultrasound to exclude DVT, XR 2 exclude acute osseous abnormality; fracture. As patient is incontinent will obtain straight catheterization for urinalysis. Differential Diagnosis Differential Diagnoses: The differential diagnosis associated with the presentation includes (See narrative above) Admission/Observation Consideration of admission/observation: Escalation of care including admission/observation considered Lab Data [facility] Lab Attestation statement: I reviewed the patient's lab results. (See course narrative) 04/07/24 16:57 04/07/24 16:57 Labs: Lab Results 04/07/24 04/07/24 Range/Units 16:57 18:41 WBC 13.8 H (4.8-10.8) X10*3/uL RBC 3.13 L (4.20-5.50) X10*6/uL Hgb 9.0 L (12.0-16.0) g/dl Hct 27.5 L (37.0-47.0) % MCV 87.9 (80.0-98.0) fL MCH 28.8 (27.0-33.0) pg MCHC 32.7 (31.0-35.0) g/dl RDW 16.4 H (11.0-16.0) % Plt Count 290 (160-400) X10*3/uL MPV 10.7 (9.4-12.3) fL Immature Gran % (Auto) Cancelled Neut % (Auto) Cancelled Lymph % (Auto) Cancelled [place] % (Auto) Cancelled Eos % (Auto) Cancelled Baso % (Auto) Cancelled Lymph # (Auto) Cancelled [place] # (Auto) Cancelled Eos # (Auto) Cancelled Baso # (Auto) Cancelled Abs Immat Gran (auto) Cancelled Absolute Neuts (auto) Cancelled Absolute Nucleated RBC 0.000 (0.0-0.012) X10*3/uL Nucleated RBC % (auto) 0.0 (0.0-0.2) /100WBC Neutrophils % (Manual) 74 H (45-73) % Band Neutrophils % 4 (3-5) % Lymphocytes % (Manual) 14 L (20-40) % Monocytes % (Manual) 1 L (2-11) % Eosinophils % (Manual) 2 (0-4) % Metamyelocytes % 3 % Myelocytes % 1 % Promyelocytes % 1 % Abs Neuts (Manual) 10.8 H (2.0-8.3) X10*3/uL Lymphocytes # (Manual) 1.9 (1.2-4.9) X10*3/uL Monocytes # (Manual) 0.1 (0.1-1.2) X10*3/uL Eosinophils # (Manual) 0.3 (0.0-0.4) X10*3/uL Metamyelocytes # 0.4 X10*3/uL Myelocytes # 0.1 X10*/uL Promyelocytes # 0.1 X10*3/uL Platelet Estimate NORMAL (NORMAL) Plt Morphology Comment NORMAL RBC Morphology NOTED Ovalocytes 2+ (15-30) /OIF Acanthocytes (Spur) 2+ (3-5) /OIF Schistocytes 1+ (0-2) /OIF PT 22.9 H D (11.1-13.3) SEC INR 1.9 H (0.9-1.1) Sodium 138 (135-145) mmol/L Potassium 5.4 H (3.3-5.1) mmol/L Chloride 107 (96-108) mmol/L Carbon Dioxide 23 (22-29) mmol/L Anion Gap 13 (12-20) BUN 81 H (9-16) mg/dL Creatinine 2.43 H (0.5-1.4) mg/dL Estim Creat Clear Calc 18.7 Estimated GFR 20 Random Glucose 175 H (60-115) mg/dL Calcium 10.1 (8.4-10.2) mg/dL Magnesium 2.3 (1.6-2.6) mg/dL Total Bilirubin 0.3 (0.0-1.0) mg/dL AST 18 (5-31) U/L ALT 14 (0-31) U/L Alkaline Phosphatase 49 (39-117) U/L Total Creatine Kinase 31 (26-140) U/L B-Natriuretic Peptide 186 H (<100) pg/mL Total Protein 7.1 (6.5-8.0) g/dL Albumin 3.4 L (3.5-5.0) g/dL Urine Color Yellow Urine Appearance Turbid Urine pH 5.0 (5.0-9.0) Ur Specific [place] 1.015 (1.005-1.025) Urine Protein 300 (3+) H (Neg-Trace) mg/dL Urine Glucose (UA) >=1000 H (Negative) mg/dL Urine Ketones Negative (Negative) mg/dL Urine Blood Large (3+) H (Negative) Urine Nitrite Positive H (Negative) Ur Leukocyte Esterase Large (3+) H (Negative) Urine RBC >20 H (0-2) /HPF Urine WBC >50 H (0-5) /HPF Ur Squamous Epith Cells 0-2 (0-2) /HPF Urine Bacteria 4+ (None Seen) Hyaline Casts 0-2 (0-2) /LPF Independent Interpretation I performed an independent interpretation of an: Ultrasound (No DVT) Radiology Impression Discussion of test interpretation with radiology: I have reviewed the radiologist's reading. Radiologist Impression: US/US venous duplex LE LT IMPRESSION: No DVT demonstrated in the left lower extremity. Independent Historian Clinical information obtained from an independent historian. History obtained from or confirmed by: EMS and Other (Daughter present who confirms history) External Record Review External record reviewed: Inpatient record (See narrative above) Discharge Plan Discharge Clinical Impression: Acute kidney injury superimposed on chronic kidney disease, Urinary retention, Pain of left calf, Acute hyperkalemia UTI (urinary tract infection) Qualifiers: Urinary tract infection type: acute cystitis Hematuria presence: without hematuria Qualified Code(s): N30.00 - Acute cystitis without hematuria Patient Disposition: Admitted As Inpatient Interventions: Admission Worksheet (ED) Last Done: 04/08/24 00:09
[2024-04-07 17:11] LABS: Hematocrit 27.5 % (37.0-47.0); Mean Corpuscular HGB Conc 32.7 g/dl (31.0-35.0); Mean Corpuscular Hemoglobin 28.8 pg (27.0-33.0); Mean Corpuscular Volume 87.9 fL (80.0-98.0); Mean Platelet Volume 10.7 fL (9.4-12.3); Platelet Count 290 X10*3/uL (160-400); Red Blood Count 3.13 X10*6/uL (4.20-5.50); Red Cell Distribution Width 16.4 % (11.0-16.0); White Blood Count 13.8 X10*3/uL (4.8-10.8)
[2024-04-07 17:17] LABS: Alanine Aminotransferase 14 U/L (0-31); Albumin Level 3.4 g/dL (3.5-5.0); Alkaline Phosphatase 49 U/L (39-117); Anion Gap 13 (12-20); Aspartate Amino Transferase 18 U/L (5-31); Bilirubin Total 0.3 mg/dL (0.0-1.0); Blood Urea Nitrogen 81 mg/dL (9-16); Calcium 10.1 mg/dL (8.4-10.2); Carbon Dioxide 23 mmol/L (22-29); Chloride 107 mmol/L (96-108); Creatinine Clr Calc Pharmacy 18.7; Estimated Glomerular Filt Rate 20; Glucose Random 175 mg/dL (60-115); INTERNATIONAL NORM RATIO 1.9 (0.9-1.1); Magnesium 2.3 mg/dL (1.6-2.6); Potassium 5.4 mmol/L (3.3-5.1); Prothrombin Time 22.9 SEC (11.1-13.3); Sodium 138 mmol/L (135-145); Total Protein 7.1 g/dL (6.5-8.0)
[2024-04-07 17:36] LABS: Acanthocytes 2+ (3-5) /OIF; Band Neutrophils Percent 4 % (3-5); Eosinophils Absolute Manual 0.3 X10*3/uL (0.0-0.4); Eosinophils Percent Manual 2 % (0-4); Lymphocytes Absolute Manual 1.9 X10*3/uL (1.2-4.9); Lymphocytes Percent Manual 14 % (20-40); Metamyelocytes Absolute 0.4 X10*3/uL; Metamyelocytes Percent 3 %; Monocytes Absolute Manual 0.1 X10*3/uL (0.1-1.2); Monocytes Percent Manual 1 % (2-11); Myelocytes Absolute 0.1 X10*/uL; Myelocytes Percent 1 %; Neutrophils Absolute Manual 10.8 X10*3/uL (2.0-8.3); Neutrophils Percent Manual 74 % (45-73); Platelet Estimate NORMAL (NORMAL); Platelet Morphology Comment NORMAL; Promyelocytes Absolute 0.1 X10*3/uL; Promyelocytes Percent 1 %; RBC Morphology NOTED
[2024-04-07 17:37] LABS: Ovalocytes 2+ (15-30) /OIF; Schistocytes 1+ (0-2) /OIF
[2024-04-07] MEDS: Acetaminophen 325 MG TABLET 975 MG PO ×2 (17:56→23:39)
--- NOTE | 2024-04-07 18:03 | ECG_ITS ---
Test Reason : HYPERKALEMIA Blood Pressure : / mmHG Vent. Rate : 064 BPM Atrial Rate : 064 BPM P-R Int : 206 ms QRS Dur : 088 ms QT Int : 396 ms P-R-T Axes : 048 -17 026 degrees QTc Int : 408 ms Normal sinus rhythm Normal ECG When compared with ECG of 01-MAR-2024 11:44, Criteria for Septal infarct are no longer Present Referred By: Chaya Starks Electronically Signed By:ESA CANCINO
--- NOTE | 2024-04-07 18:22 | MHC.CM.ED ---
Addendum entered by Eliana Hernandez 04/07/24 18:35: CM notified that patient will be admitted. Awaiting hospitalist. Original Note: CM met with patient and daughter at the request of Dillon RODRIGUEZ. Pt was inpatient at [facility] 03/02-03/04 with acute R HELENA CVA. She has L sided hemiparesis and urinary retention. Was discharged to [facility] and was discharged to home 4 days ago. Pt is still not ambulatory and is bedbound/wheelchair bound. Daughter states patient is very weak. She was discharged with [facility] for SN, PT and OT. She just had her intake yesterday. Patient lives with her daughter on the second floor. She is unable to bring her mother to provider appointments at this time and is requesting telehealth, as she has no way to get her out of the apartment. Pt has a wheelchair, hospital bed and a slide board. HCP is at home. HCP/daughter rogerio Lu ([phone]). Daughter will bring in copy in the morning. PCP is Nick Nelson NP. Dr. Samuels is her neurologist. Pt is eating a regular diet and taking pills whole. Has no swallowing difficulties. PT pending. Daughter and patient agreeable to PT eval for possible STR. Daughter is aware that STR is dependent on PT assessment. STR referrals have been made locally. Pt does have a qualifying stay. MH application referral has been made with daughter as contact. Daughter would like to keep her mother at home. Needs assistance. CM will follow for D/C planning. Contact card given.
[2024-04-07] MEDS: 0.9 % Sodium Chloride 1,000 ML 999 ML IV (18:31)
[2024-04-07] MEDS: Sodium Zirconium Cyclosilicate 10 GM POWD.PACK PO (18:31)
[2024-04-07 18:48] LABS: B Type Natriuretic Peptide 186 pg/mL (<100)
[2024-04-07 18:50] LABS: Appearance Urine Turbid; Color Urine Yellow; Glucose Urine UA >=1000 mg/dL (Negative); Leukocyte Esterase Urine Large (3+) (Negative); Nitrite Urine Positive (Negative); Specific Gravity - Urine 1.015 (1.005-1.025); UMIC TRIGGER UACC YES; Urine Blood Large (3+) (Negative); Urine Ketones Negative (Negative); Urine Protein 300 (3+) mg/dL (Neg-Trace)
--- NOTE | 2024-04-07 18:55 | MHC.EDTECH ---
EKG documented for previous shift
[2024-04-07 19:01] VITALS: BP 127/52; PULSE 64; RESP 16; TEMP 36.7; O2SAT 96
[2024-04-07 19:15] LABS: Bacteria Urine 4+ (None Seen); Hyaline Casts Urine 0-2 /LPF (0-2); RBC Urine >20 /HPF (0-2); Squamous Epithelial Cell Urine 0-2 /HPF (0-2); UACC Culture Trigger YES; WBC Urine >50 /HPF (0-5)
--- NOTE | 2024-04-07 19:31 | PC.NURSE ---
Assumed care of pt. pt lying on stretcher, shauna astudillo distress, family at bedside. pt aware of plan for admission.
[2024-04-07] MEDS: cefTRIAXone sodium 1 GM in 0.9 % Sodium Chloride 50 ML IV (20:34)
--- NOTE | 2024-04-07 21:36 | MHC.CM.PN ---
Addendum entered by Eliana Hernandez 04/07/24 21:52: 22 STR referrals placed. [facility] requested to follow for discharge via [facility]. application assistance referral made to financial services. Original Note: IMM 04/07. Reviewed with patient and daughter. Daughter signed paperwork. Pt awaiting room assignment. PT pending. Daughter reminded to bring in HCP tomorrow. D/C plan: Pending PT eval. STR vs home with existing [facility] for SN and PT/OT. Will need BLS transport at discharge.
--- NOTE | 2024-04-07 21:38 | PM.IMHP ---
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 HPI was mostly provided by patient's daughter who was at bedside. Daughter stated that she feels like her mom has a lump in her left calf. Daughter also mentioned that the patient has not been taking her Eliquis over the last couple of days due to prescription issues. No history of recent trauma reported. There is no fevers chills reported. Patient denied any pain or shortness on breath. Patient did not report any acute abdominal symptoms. According to daughter the patient was recently discharged (April 04) from rehab center, [facility], after she had CVA. She said that the patient required indwelling urinary catheter X1 week that was discontinued on March 30. Patient did not state any opioids or [employer] meds. Patient has history (01/2024) of urinary tract infection secondary to E coli (pansensitive) In the ED, she was found to have stable vital signs. Blood workup is remarkable for mild hyperkalemia of 5.4, there is no lactic acidosis. Creatinine is 2.43 which is slightly higher than baseline. LFTs are normal. Glucose is 175 and BNP is 186 which is lower than prior. Left lower extremity venous US no evidence of DVT or cyst. Urinalysis consistent with urinary tract infection. ED tx: NS 1 L bolus, Lokelma 10 g PO, ceftriaxone 1 g IV and Tylenol 975 mg PO. Review of Systems Review of Systems: All 12 systems were reviewed and normal except as noted in HPI. [facility] Medical History SOB (shortness of breath) Gout of big toe Elevated troponin Bilateral wheezing Leg edema Increasing shortness of breath 2+ pitting edema Cataract Hypertension Gout Surgical History History of cholecystectomy H/O: hysterectomy Social History Household Members: Children Housing: Apartment Do you presently have visiting nurse or other home services: No Alcohol intake: former Comment: refusing alarms Patient Tobacco Use Status: Never used Tobacco Second Hand Smoke Exposure: No Advance Directives: Yes Advance Directives Information Provided: Yes Advance Directives on File: No Do you have a plan to hurt others: No Plan service: No Current occupational status: retired Meds Allergies Allergy/AdvReac Type Severity Reaction Status Date / Time Penicillins [PENICILLINS] Allergy Unknown Rash Verified 04/07/24 12:33 lactose AdvReac Mild Unknown Verified 04/07/24 12:33 shellfish Allergy Mild Unknown Uncoded 04/07/24 12:33 Active Medications: Current Medications Acetaminophen (Acetaminophen 325 Mg Tablet) 975 mg PO Q6H [place] Stop: 04/08/24 12:01 Apixaban (Apixaban 5 Mg Tablet) 5 mg PO BID [facility] Aspirin (Aspirin 81 Mg Tab.Chew) 81 mg PO DAILY [facility] Fenofibrate (Fenofibrate 160 Mg Tablet) 145 mg PO DAILY [facility] Glucose (Glucose Gel 15 Gm Gel..Gram.) 15 gm PO Q15M PRN; Protocol PRN Reason: per Hypoglycemia Standing Ord. Dextrose (D10) 250 mls @ 750 mls/hr IV Q15M PRN; Protocol PRN Reason: per Hypoglycemia Standing Ord. Insulin Glargine (Insulin Glargine,Hum.Rec.Anlog 100 Unit/Ml 10 Ml Vial) 18 unit SUBCUT BEDTIME [facility] Insulin Human Lispro (Insulin Lispro 100 Unit/Ml 3 Ml Vial) 0 unit SUBCUT QIDACHS [facility]; Protocol Sodium Chloride (0.9 % Sodium Chloride Flush 3 Ml Syringe) 3 ml IVFLUSH QSHIFT [facility] Home Medications ?Medication ?Instructions ?Recorded ?Confirmed ?Last Taken ?Type acetaminophen 500 mg tablet 500 mg PO DAILY PRN Pain 02/06/24 03/01/24 Unknown History insulin lispro 100 unit/mL 1 sliding scale dose subcut QIDACHS 03/01/24 03/01/24 Unknown History subcutaneous pen (Humalog KwikPen (U-100) Insulin) amlodipine 5 mg tablet 5 mg PO DAILY 04/07/24 04/07/24 Unknown History atorvastatin 40 mg tablet 40 mg PO BEDTIME 04/07/24 04/07/24 Unknown History carvedilol 12.5 mg tablet 12.5 mg PO BID 04/07/24 04/07/24 04/07/24 History gemfibrozil 600 mg tablet 600 mg PO BID 04/07/24 04/07/24 Unknown History insulin glargine 100 unit/mL (3 18 unit subcut DAILY 04/07/24 04/07/24 04/07/24 History mL) subcutaneous pen (Lantus Solostar U-100 Insulin) isosorbide mononitrate 30 mg 30 mg PO DAILY 04/07/24 04/07/24 Unknown History tablet,extended release 24 hr melatonin 3 mg capsule 6 mg PO BEDTIME PRN Sleep 04/07/24 04/07/24 Unknown History Physical Exam Vital Signs and Narrative: Vital Signs: Last Vital Signs Temp 98.1 F 04/07/24 19:01 Pulse 64 04/07/24 19:01 Resp 16 04/07/24 19:01 BP 127/52 L 04/07/24 19:01 Pulse Ox 96 04/07/24 19:01 O2 Del Method Room Air 04/07/24 19:01 BMI result Body Mass Index 30.9 Constitutional - Awake and Alert, No apparent distress HEENT - Pupils equally round. Heart - S1S2, RRR, No edema Lungs - Normal lung expansion, Normal respiratory effort, No respiratory distress, CTA bilaterally Abdomen - NT / ND; +BS; No rebound or guarding Extremities - Left calf: small area tenderness to palpation, no fluctuant masses palpable, no erythema or pitting edema. Left lower extremity looks slightly swollen. Right lower extremity looks grossly normal. Musculoskeletal - Normal inspection, normal ROM Skin - Warm/Dry Neurological - Alert & oriented x3. Chronic left sided hemiparesis, no facial droop grossly noted. No slurred speech. Psychological - Appropriate affect Results Labs 04/07/24 16:57 04/07/24 16:57 Labs: Laboratory Results - last 24 hr 04/07/24 04/07/24 16:57 18:41 MCV 87.9 MCH 28.8 MCHC 32.7 RDW 16.4 H Plt Count 290 MPV 10.7 Immature Gran % (Auto) Cancelled Neut % (Auto) Cancelled Lymph % (Auto) Cancelled [place] % (Auto) Cancelled Eos % (Auto) Cancelled Baso % (Auto) Cancelled Lymph # (Auto) Cancelled [place] # (Auto) Cancelled Eos # (Auto) Cancelled Baso # (Auto) Cancelled Abs Immat Gran (auto) Cancelled Absolute Neuts (auto) Cancelled Absolute Nucleated RBC 0.000 Nucleated RBC % (auto) 0.0 Neutrophils % (Manual) 74 H Band Neutrophils % 4 Lymphocytes % (Manual) 14 L Monocytes % (Manual) 1 L Eosinophils % (Manual) 2 Metamyelocytes % 3 Myelocytes % 1 Promyelocytes % 1 Abs Neuts (Manual) 10.8 H Lymphocytes # (Manual) 1.9 Monocytes # (Manual) 0.1 Eosinophils # (Manual) 0.3 Metamyelocytes # 0.4 Myelocytes # 0.1 Promyelocytes # 0.1 Platelet Estimate NORMAL Plt Morphology Comment NORMAL RBC Morphology NOTED Ovalocytes 2+ (15-30) Acanthocytes (Spur) 2+ (3-5) Schistocytes 1+ (0-2) PT 22.9 H D INR 1.9 H Anion Gap 13 Estim Creat Clear Calc 18.7 Estimated GFR 20 Random Glucose 175 H Calcium 10.1 Magnesium 2.3 Total Bilirubin 0.3 AST 18 ALT 14 Alkaline Phosphatase 49 Total Creatine Kinase 31 B-Natriuretic Peptide 186 H Total Protein 7.1 Albumin 3.4 L Urine Color Yellow Urine Appearance Turbid Urine pH 5.0 Ur Specific [place] 1.015 Urine Protein 300 (3+) H Urine Glucose (UA) >=1000 H Urine Ketones Negative Urine Blood Large (3+) H Urine Nitrite Positive H Ur Leukocyte Esterase Large (3+) H Urine RBC >20 H Urine WBC >50 H Ur Squamous Epith Cells 0-2 Urine Bacteria 4+ Hyaline Casts 0-2 Imaging Radiologist's Impressions: Impressions Venous Duplex 04/07/24 17:32 IMPRESSION: No DVT demonstrated in the left lower extremity. Assessment and Plan (1) UTI (urinary tract infection): Qualifiers: Urinary tract infection type: acute cystitis Hematuria presence: without hematuria Qualified Code(s): N30.00 - Acute cystitis without hematuria Status: Acute (2) Urinary retention: Status: Acute (3) Pain of left calf: Status: Acute Plan Enma Gaston is a 73 y/o woman admitted with: Urinary retention associated with urinary tract infection, recent use of indwelling urinary catheter a rehab center (removed on March 30). Admit to hospitalist service. Indwelling urinary catheter placed in the emergency department today. Continue empiric IV antibiotic therapy with ceftriaxone. IV fluids given in the emergency department. Urine cultures obtained -will follow results. Urology consult. Mild hyperkalemia likely secondary to underlying CKD. Received Lokelma. Continue to monitor potassium level. Left calf tenderness. LLE venous US showed no DVT or cyst. Likely muscular in nature. Therapy with Tylenol. History of CVA with left hemiparesis. Continue statin, aspirin and Eliquis. Type 2 diabetes mellitus. Check hemoglobin A1c. Diabetic diet. Continue treatment with Lantus 18 units subQ at bedtime and insulin sliding scale. CKD, stage 4. Continue to monitor renal function. Avoid nephrotoxic agents. HFpEF. No acute respiratory signs and symptoms. BNP lower than prior. Not on diuretics. Continue carvedilol. Essential hypertension. Continue amlodipine and carvedilol. Hyperlipidemia. Continue statin and fenofibrate. DVT prophylaxis: Eliquis Code status: Full Patient will need hospitalization for at least 2 midnights for urinary tract infection treatment in the setting of underlying of multiple medical comorbidities including urinary retention. Patient will need empiric IV antibiotic therapy and evaluation by urology service. Quality Stroke Does the patient have a stroke diagnosis?: No VTE Prior VTE?: No VTE Risk Level:: Medical - moderate - high VTE Device Contraindication: Treatment Not Indicated VTE Drug Contraindication: N/A - Med Ordered
[2024-04-07 21:43] VITALS: PULSE 88; RESP 18; TEMP 37.2; O2SAT 97
[2024-04-07 21:51] LABS: Glucose, Whole Blood 123 mg/dL (60-115)
[2024-04-07] MEDS: Atorvastatin Calcium 40 MG TABLET PO (21:54)
[2024-04-07] MEDS: Insulin Glargine,Hum.rec.anlog 100 UNIT/ML 10 ML VIAL 18 UNIT SUBCUT (21:54)
[2024-04-07] MEDS: Apixaban 5 MG TABLET PO (21:54)
[2024-04-07] MEDS: Melatonin 3 MG TABLET PO (21:54)
--- NOTE | 2024-04-07 22:06 | PHA.MEDREC ---
Pharmacy Consult ? Medication Reconciliation Pharmacy has completed the medication reconciliation. Spoke to patients daughter Jerri Dow to confirm med list. Jerri stated her mother was sent home 04-05-23 from [facility]. She had a list of medications with her. she says she takes Lantus Solostar 18 units daily and Humalog Kwik pen per sliding scale qid before meals and at bedtime. Jerri also stated her mother was on Fenofibrate 160 mg at bedtime but insurance wouldn't cover it. Dr saucedo to Gemfibrozil 600 mg bid but hasn't picked it up from the pharmacy.
[2024-04-07] MEDS: 0.9 % Sodium Chloride Flush 3 ML SYRINGE IVFLUSH (23:39)
[2024-04-08] VITALS (10 sets, daily range): BP systolic 120–143; BP diastolic 56–67; PULSE 58–77; RESP 14–19; TEMP 36.1–36.7; O2SAT 95–98; BMI 31.1
[2024-04-08] MEDS: Acetaminophen 325 MG TABLET 975 MG PO ×3 (05:53→21:37)
[2024-04-08 06:42] LABS: Anion Gap 11 (12-20); Blood Urea Nitrogen 66 mg/dL (9-16); Calcium 9.9 mg/dL (8.4-10.2); Carbon Dioxide 22 mmol/L (22-29); Chloride 111 mmol/L (96-108); Creatinine Clr Calc Pharmacy 21.4; Estimated Glomerular Filt Rate 23; Glucose Random 74 mg/dL (60-115); Phosphorus 4.2 mg/dL (2.7-4.5); Potassium 4.5 mmol/L (3.3-5.1); Sodium 139 mmol/L (135-145)
[2024-04-08 06:54] LABS: Basophils Percent Auto 0.3 % (0-2); Eosinophils Absolute Auto 0.7 X10*3/uL (0.0-0.4); Eosinophils Percent Auto 4.5 % (0-4); Hematocrit 28.2 % (37.0-47.0); Imm Gran Abs Auto 0.56 X10*3/uL (0.00-0.03); Imm Gran Pct Auto 3.7 % (0.0-0.4); Lymphocytes Absolute Auto 1.7 X10*3/uL (1.2-4.9); Lymphocytes Percent Auto 11.1 % (20-40); MANUAL DIFF FLAG SCAN; Mean Corpuscular HGB Conc 31.9 g/dl (31.0-35.0); Mean Corpuscular Hemoglobin 28.5 pg (27.0-33.0); Mean Corpuscular Volume 89.2 fL (80.0-98.0); Mean Platelet Volume 11.2 fL (9.4-12.3); Monocytes Absolute Auto 2.5 X10*3/uL (0.1-1.2); Monocytes Percent Auto 16.4 % (2-11); Neutrophils Absolute Auto 9.8 x10*3/uL (2.0-8.3); Platelet Count 286 X10*3/uL (160-400); Red Blood Count 3.16 X10*6/uL (4.20-5.50); Red Cell Distribution Width 16.4 % (11.0-16.0); SCAN SMEAR FLAG 1; White Blood Count 15.3 X10*3/uL (4.8-10.8)
[2024-04-08 07:12] LABS: Glucose, Whole Blood 70 mg/dL (60-115)
[2024-04-08 07:38] LABS: Estimated Average Glucose 183 mg/dL
[2024-04-08 07:59] LABS: SLIDE REVIEW VERIFIED
[2024-04-08] MEDS: Isosorbide Mononitrate 30 MG TAB.ER.24H PO (08:32)
[2024-04-08] MEDS: Fenofibrate 160 MG TABLET 145 MG PO (08:33)
[2024-04-08] MEDS: carvediloL 12.5 MG TABLET PO ×2 (08:34→20:52)
[2024-04-08] MEDS: Aspirin 81 MG TAB.CHEW PO (08:43)
[2024-04-08] MEDS: Apixaban 5 MG TABLET PO ×2 (08:43→20:52)
[2024-04-08] MEDS: amLODIPine Besylate 5 MG TABLET PO (08:43)
[2024-04-08] MEDS: 0.9 % Sodium Chloride Flush 3 ML SYRINGE IVFLUSH ×3 (08:47→20:53)
[2024-04-08 11:20] LABS: Glucose, Whole Blood 183 mg/dL (60-115)
[2024-04-08] MEDS: Insulin Lispro 100 UNIT/ML 3 ML VIAL SUBCUT ×2 (11:26→20:52)
--- NOTE | 2024-04-08 13:18 | MHC.CM.PN ---
PATIENT WITH RECENT STROKE PLAN IS 1-2 MORE DAYS INPATIENT. CASE MANAGEMENT FOLLOWING FOR DC
--- NOTE | 2024-04-08 13:47 | HO.PM.IMPN ---
Subjective Subjective Date of Service: 04/08/24 Interval History: uti Review of Systems calf pain improving denies any abd pain or urinary c/o. generlaised weak-uses nestor lift as per staff Physical Exam Vital Signs: Vital Signs: Last Vital Signs Temp 97.1 F 04/08/24 07:04 Pulse 72 04/08/24 08:34 Resp 16 04/08/24 07:04 BP 143/67 H 04/08/24 08:43 Pulse Ox 98 04/08/24 07:29 O2 Del Method Room Air 04/08/24 07:04 BMI result Body Mass Index 31.1 Appearance: Alert.? Oriented X3.? cvs: rrr, [id number] . res: clear to auscultation ,no rhonchii or wheezing abd: no rebound or guarding ,nt, bs present. ext pulses present , no cyanosis , leg edema neuro: axo3 , left hemiparesis Objective Data Active Medications Amlodipine Besylate (Amlodipine Besylate 5 Mg Tablet) 5 mg PO DAILY [facility]; Protocol Last Admin: 04/08/24 08:43 Dose: 5 mg Documented By: BARRETT Apixaban (Apixaban 5 Mg Tablet) 5 mg PO BID [facility] Last Admin: 04/08/24 08:43 Dose: 5 mg Documented By: BARRETT Aspirin (Aspirin 81 Mg Tab.Chew) 81 mg PO DAILY [facility] Last Admin: 04/08/24 08:43 Dose: 81 mg Documented By: BARRETT Atorvastatin Calcium (Atorvastatin Calcium 40 Mg Tablet) 40 mg PO BEDTIME [facility] Last Admin: 04/07/24 21:54 Dose: 40 mg Documented By: LIT Carvedilol (Carvedilol 12.5 Mg Tablet) 12.5 mg PO BID [facility]; Protocol Last Admin: 04/08/24 08:34 Dose: 12.5 mg Documented By: BARRETT Fenofibrate (Fenofibrate 160 Mg Tablet) 145 mg PO DAILY [facility] Last Admin: 04/08/24 08:33 Dose: 145 mg Documented By: BARRETT Glucose (Glucose Gel 15 Gm Gel..Gram.) 15 gm PO Q15M PRN; Protocol PRN Reason: per Hypoglycemia Standing Ord. Dextrose (D10) 250 mls @ 750 mls/hr IV Q15M PRN; Protocol PRN Reason: per Hypoglycemia Standing Ord. Ceftriaxone Sodium 1 gm/ (Sodium Chloride) 50 mls @ 100 mls/hr IV Q24H [facility] Insulin Glargine (Insulin Glargine,Hum.Rec.Anlog 100 Unit/Ml 10 Ml Vial) 18 unit SUBCUT BEDTIME [facility] Last Admin: 04/07/24 21:54 Dose: 18 unit Documented By: LIT Insulin Human Lispro (Insulin Lispro 100 Unit/Ml 3 Ml Vial) 0 unit SUBCUT QIDACHS [facility]; Protocol Last Admin: 04/08/24 11:26 Dose: 2 unit Documented By: BARRETT Isosorbide Mononitrate (Isosorbide Mononitrate 30 Mg Tab.Er.24h) 30 mg PO DAILY [facility]; Protocol Last Admin: 04/08/24 08:32 Dose: 30 mg Documented By: BARRETT Melatonin (Melatonin 3 Mg Tablet) 3 mg PO BEDTIME PRN PRN Reason: insomnia Last Admin: 04/07/24 21:54 Dose: 3 mg Documented By: LIT Sodium Chloride (0.9 % Sodium Chloride Flush 3 Ml Syringe) 3 ml IVFLUSH QSHIFT [facility] Last Admin: 04/08/24 08:47 Dose: 3 ml Documented By: BARRETT Labs 04/08/24 05:53 04/08/24 05:53 Labs: Laboratory Results - last 24 hr 04/07/24 04/07/24 04/07/24 16:57 18:41 21:47 MCV 87.9 MCH 28.8 MCHC 32.7 RDW 16.4 H Plt Count 290 MPV 10.7 Immature Gran % (Auto) Cancelled Neut % (Auto) Cancelled Lymph % (Auto) Cancelled [place] % (Auto) Cancelled Eos % (Auto) Cancelled Baso % (Auto) Cancelled Lymph # (Auto) Cancelled [place] # (Auto) Cancelled Eos # (Auto) Cancelled Baso # (Auto) Cancelled Abs Immat Gran (auto) Cancelled Absolute Neuts (auto) Cancelled Absolute Nucleated RBC 0.000 Nucleated RBC % (auto) 0.0 Neutrophils % (Manual) 74 H Band Neutrophils % 4 Lymphocytes % (Manual) 14 L Monocytes % (Manual) 1 L Eosinophils % (Manual) 2 Metamyelocytes % 3 Myelocytes % 1 Promyelocytes % 1 Abs Neuts (Manual) 10.8 H Lymphocytes # (Manual) 1.9 Monocytes # (Manual) 0.1 Eosinophils # (Manual) 0.3 Metamyelocytes # 0.4 Myelocytes # 0.1 Promyelocytes # 0.1 Platelet Estimate NORMAL Plt Morphology Comment NORMAL RBC Morphology NOTED Ovalocytes 2+ (15-30) Acanthocytes (Spur) 2+ (3-5) Schistocytes 1+ (0-2) Smear Tech's Comments PT 22.9 H D INR 1.9 H Anion Gap 13 Estim Creat Clear Calc 18.7 Estimated GFR 20 POC Glucose 123 H Random Glucose 175 H Estimat Average Glucose Hemoglobin A1c % Calcium 10.1 Phosphorus Magnesium 2.3 Total Bilirubin 0.3 AST 18 ALT 14 Alkaline Phosphatase 49 Total Creatine Kinase 31 B-Natriuretic Peptide 186 H Total Protein 7.1 Albumin 3.4 L Urine Color Yellow Urine Appearance Turbid Urine pH 5.0 Ur Specific [place] 1.015 Urine Protein 300 (3+) H Urine Glucose (UA) >=1000 H Urine Ketones Negative Urine Blood Large (3+) H Urine Nitrite Positive H Ur Leukocyte Esterase Large (3+) H Urine RBC >20 H Urine WBC >50 H Ur Squamous Epith Cells 0-2 Urine Bacteria 4+ Hyaline Casts 0-2 04/08/24 04/08/24 04/08/24 05:53 07:07 11:16 MCV 89.2 MCH 28.5 MCHC 31.9 RDW 16.4 H Plt Count 286 MPV 11.2 Immature Gran % (Auto) 3.7 H Neut % (Auto) 64.0 Lymph % (Auto) 11.1 L [place] % (Auto) 16.4 H Eos % (Auto) 4.5 H Baso % (Auto) 0.3 Lymph # (Auto) 1.7 [place] # (Auto) 2.5 H Eos # (Auto) 0.7 H Baso # (Auto) 0.0 Abs Immat Gran (auto) 0.56 H Absolute Neuts (auto) 9.8 H Absolute Nucleated RBC 0.000 Nucleated RBC % (auto) 0.0 Neutrophils % (Manual) Band Neutrophils % Lymphocytes % (Manual) Monocytes % (Manual) Eosinophils % (Manual) Metamyelocytes % Myelocytes % Promyelocytes % Abs Neuts (Manual) Lymphocytes # (Manual) Monocytes # (Manual) Eosinophils # (Manual) Metamyelocytes # Myelocytes # Promyelocytes # Platelet Estimate Plt Morphology Comment RBC Morphology Ovalocytes Acanthocytes (Spur) Schistocytes Smear Tech's Comments VERIFIED PT INR Anion Gap 11 L Estim Creat Clear Calc 21.4 Estimated GFR 23 POC Glucose 70 183 H Random Glucose 74 Estimat Average Glucose 183 Hemoglobin A1c % 8.0 H Calcium 9.9 Phosphorus 4.2 Magnesium Total Bilirubin AST ALT Alkaline Phosphatase Total Creatine Kinase B-Natriuretic Peptide Total Protein Albumin Urine Color Urine Appearance Urine pH Ur Specific [place] Urine Protein Urine Glucose (UA) Urine Ketones Urine Blood Urine Nitrite Ur Leukocyte Esterase Urine RBC Urine WBC Ur Squamous Epith Cells Urine Bacteria Hyaline Casts Microbiology Microbiology Results: Microbiology 04/07/24 18:39 Urine Culture - Preliminary Urine clean catch - Urine hill[place] top Culture in progress. Assessment and Plan (1) Pain of left calf: Status: Acute (2) UTI (urinary tract infection): Status: Acute Assessment and Plan: 73 y/o woman admitted with: Urinary retention associated with urinary tract infection, recent use of indwelling urinary catheter a rehab center (removed on March 30). s/p padilla in Ed. Continue empiric IV antibiotic therapy with ceftriaxone, Urine cultures obtained -will follow results. Urology consult. Mild hyperkalemia likely secondary to underlying CKD. Received Lokelma and resolved. Left calf tenderness. LLE venous US showed no DVT or cyst. Likely muscular in nature. Therapy with Tylenol. History of CVA with left hemiparesis. Continue statin, aspirin and Eliquis. Type 2 diabetes mellitus with flactuating fs hemoglobin A1c is 8. Diabetic diet. Continue treatment with Lantus 15 units subQ at bedtime and insulin sliding scale. CKD, stage 4. Continue to monitor renal function. Avoid nephrotoxic agents. HFpEF. No acute respiratory signs and symptoms. BNP lower than prior. Not on diuretics. Continue carvedilol. Essential hypertension. Continue amlodipine and carvedilol. Hyperlipidemia. Continue statin and fenofibrate. Overweight: Encouraged to lose weight, cutdown down calories. generalised weak: Pt eval. Ongoing hospitalization need:uti,hyperkalemia -need iv antibiotics ,moniter renal function and electrolytes,PT eval for dispo. Quality Stroke Does the patient have a stroke diagnosis?: No VTE Prior VTE?: No VTE Risk Level:: Medical - moderate - high VTE Device Contraindication: Treatment Not Indicated VTE Drug Contraindication: N/A - Med Ordered
[2024-04-08 16:06] LABS: Glucose, Whole Blood 138 mg/dL (60-115)
[2024-04-08 20:43] LABS: Glucose, Whole Blood 258 mg/dL (60-115)
[2024-04-08] MEDS: Atorvastatin Calcium 40 MG TABLET PO (20:52)
[2024-04-08] MEDS: Insulin Glargine,Hum.rec.anlog 100 UNIT/ML 10 ML VIAL 15 UNIT SUBCUT (20:53)
[2024-04-08] MEDS: cefTRIAXone sodium 1 GM in 0.9 % Sodium Chloride 50 ML IV (20:53)
[2024-04-09] VITALS (8 sets, daily range): BP systolic 126–148; BP diastolic 60–75; PULSE 68–73; RESP 18–19; TEMP 36.1–36.6; O2SAT 94–97
[2024-04-09 07:40] LABS: Glucose, Whole Blood 101 mg/dL (60-115)
--- NOTE | 2024-04-09 08:14 | P.CNUR_ITS ---
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 She was home for a few days after discharge from Rehab facility and was continuing with physical therapy at [facility]. Positive E coli UTI - 02/05/24-- (pansensitive) Urine c/s sent - 04/07/24--preliminary-- enterrococcus >100,000, and proteus >10,000. Patient currently with padilla. Review of Systems 2 Review of Systems: 10 point review of symptoms negative oth er than stated in HPI [facility] Past Medical History Medical History SOB (shortness of breath) Gout of big toe Elevated troponin Bilateral wheezing Leg edema Increasing shortness of breath 2+ pitting edema Cataract Hypertension Gout Surgical History Surgical History History of cholecystectomy H/O: hysterectomy Social History Social History Household Members: Children Housing: House Do you presently have visiting nurse or other home services: No Alcohol intake: former Comment: refusing alarms Patient Tobacco Use Status: Never used Tobacco Second Hand Smoke Exposure: No Advance Directives Date on File: 04/08/24 service: No Current occupational status: retired Meds Allergies Allergy/AdvReac Type Severity Reaction Status Date / Time Penicillins [PENICILLINS] Allergy Unknown Rash Verified 04/07/24 12:33 lactose AdvReac Mild Unknown Verified 04/07/24 12:33 shellfish Allergy Mild Unknown Uncoded 04/07/24 12:33 Active Medications: Current Medications Acetaminophen (Acetaminophen 325 Mg Tablet) 975 mg PO Q6H PRN PRN Reason: mild pain, headache or fever Last Admin: 04/08/24 21:37 Dose: 975 mg Amlodipine Besylate (Amlodipine Besylate 5 Mg Tablet) 5 mg PO DAILY [facility]; Protocol Last Admin: 04/08/24 08:43 Dose: 5 mg Apixaban (Apixaban 5 Mg Tablet) 5 mg PO BID [facility] Last Admin: 04/08/24 20:52 Dose: 5 mg Aspirin (Aspirin 81 Mg Tab.Chew) 81 mg PO DAILY [facility] Last Admin: 04/08/24 08:43 Dose: 81 mg Atorvastatin Calcium (Atorvastatin Calcium 40 Mg Tablet) 40 mg PO BEDTIME [facility] Last Admin: 04/08/24 20:52 Dose: 40 mg Carvedilol (Carvedilol 12.5 Mg Tablet) 12.5 mg PO BID [facility]; Protocol Last Admin: 04/08/24 20:52 Dose: 12.5 mg Fenofibrate (Fenofibrate 160 Mg Tablet) 145 mg PO DAILY [facility] Last Admin: 04/08/24 08:33 Dose: 145 mg Glucose (Glucose Gel 15 Gm Gel..Gram.) 15 gm PO Q15M PRN; Protocol PRN Reason: per Hypoglycemia Standing Ord. Dextrose (D10) 250 mls @ 750 mls/hr IV Q15M PRN; Protocol PRN Reason: per Hypoglycemia Standing Ord. Ceftriaxone Sodium 1 gm/ (Sodium Chloride) 50 mls @ 100 mls/hr IV Q24H [facility] Last Infusion: 04/08/24 21:24 Dose: Infused Insulin Glargine (Insulin Glargine,Hum.Rec.Anlog 100 Unit/Ml 10 Ml Vial) 15 unit SUBCUT BEDTIME [facility] Last Admin: 04/08/24 20:53 Dose: 15 unit Insulin Human Lispro (Insulin Lispro 100 Unit/Ml 3 Ml Vial) 0 unit SUBCUT QIDACHS [facility]; Protocol Last Admin: 04/09/24 08:02 Dose: Not Given Isosorbide Mononitrate (Isosorbide Mononitrate 30 Mg Tab.Er.24h) 30 mg PO DAILY [facility]; Protocol Last Admin: 04/08/24 08:32 Dose: 30 mg Melatonin (Melatonin 3 Mg Tablet) 3 mg PO BEDTIME PRN PRN Reason: insomnia Last Admin: 04/07/24 21:54 Dose: 3 mg Melatonin (Melatonin 3 Mg Tablet) 6 mg PO BEDTIME PRN PRN Reason: Sleep Multivitamins/Vitamin C (Multivitamin Tablet) 1 tab PO DAILY [facility] Sodium Chloride (0.9 % Sodium Chloride Flush 3 Ml Syringe) 3 ml IVFLUSH QSHIFT [facility] Last Admin: 04/08/24 20:53 Dose: 3 ml Home Medications ?Medication ?Instructions ?Recorded ?Confirmed ?Last Taken ?Type acetaminophen 500 mg tablet 500 mg PO DAILY PRN Pain 02/06/24 04/07/24 Unknown History insulin lispro 100 unit/mL 1 sliding scale dose subcut QIDACHS 03/01/24 04/07/24 04/07/24 History subcutaneous pen (Humalog KwikPen (U-100) Insulin) amlodipine 5 mg tablet 5 mg PO DAILY 04/07/24 04/07/24 04/07/24 History atorvastatin 40 mg tablet 40 mg PO BEDTIME 04/07/24 04/07/24 04/07/24 History carvedilol 12.5 mg tablet 12.5 mg PO BID 04/07/24 04/07/24 04/07/24 History gemfibrozil 600 mg tablet 600 mg PO BID 04/07/24 04/07/24 04/07/24 History insulin glargine 100 unit/mL (3 18 unit subcut BEDTIME 04/07/24 04/07/24 04/07/24 History mL) subcutaneous pen (Lantus Solostar U-100 Insulin) isosorbide mononitrate 30 mg 30 mg PO DAILY 04/07/24 04/07/24 Unknown History tablet,extended release 24 hr melatonin 3 mg capsule 6 mg PO BEDTIME PRN Sleep 04/07/24 04/07/24 Unknown History multivitamin with minerals 1 tab PO DAILY 04/07/24 04/07/24 Unknown History Physical Exam 2 Vital Signs: Vital Signs: Last Vital Signs Temp 97.8 F 04/09/24 03:37 Pulse 73 04/09/24 03:37 Resp 18 04/09/24 03:37 BP 132/60 04/09/24 03:37 Pulse Ox 94 04/09/24 03:37 O2 Del Method Room Air 04/09/24 03:37 BMI result Body Mass Index 31.1 Const: General: cooperative, healthy appearing and no acute distress O rientation/consciousness: patient oriented x3 HEENT: Head: Yes normal to inspection, Yes normocephalic and Yes atraumatic Eyes: Conjunctivae: conjunctivae normal Neck: Neck: Yes normal visual inspection and Yes trachea midline Chest: Chest palpation & inspection: normal inspection of the chest Resp: Effort & Inspection: normal respiratory effort Cardio: Rate: regular rate GI: Inspection: Yes normal to inspection Palpation (GI): Soft to palpation : General: No no CVA tenderness Back/Spine/Pelvis: Back: No no CVA tenderness Neuro: General: patient oriented x3 Psych: Appearance: grossly normal Results Labs 04/08/24 05:53 04/08/24 05:53 Labs: Abnormal lab results 04/08/24 04/08/24 04/08/24 Range/Units 11:16 16:03 20:34 POC Glucose 183 H 138 H 258 H (60-115) mg/dL Urine 04/07/24 Range/Units 18:41 Urine Color Yellow Urine Appearance Turbid Urine pH 5.0 (5.0-9.0) Ur Specific [place] 1.015 (1.005-1.025) Urine Protein 300 (3+) H (Neg-Trace) mg/dL Urine Glucose (UA) >=1000 H (Negative) mg/dL All other labs normal. Imaging Additional studies: Date of Service: 02/13/24 Procedure(s): US renal BI Accession Number(s): [id number] cc: Physician,Unknown ; Shanda Owen MD~ EXAMINATION: US RETROPERITONEAL LIMITED (RENAL ONLY) CLINICAL INFORMATION: Acute on chronic renal insufficiency. COMPARISON: None available. TECHNIQUE: Real-time imaging of the kidneys. FINDINGS: RIGHT KIDNEY: 8.2 x 3.7 x 4.0 cm (SAG x AP x TRV). The kidney is asymmetrically smaller with lobulated contour and areas of cortical scarring. No discrete calculi. No hydronephrosis. LEFT KIDNEY: 10.0 x 5.0 x 4.0 cm (SAG x AP x TRV). The kidney is normal in size, contour, and echogenicity. Renal cortical thickness is normal. 3 mm nonobstructing calcification possibly vascular in etiology. No hydronephrosis. Midpole cyst measures 5 x 5 x 6 mm. Midpole cyst measures 8 x 5 x 6 mm. No further imaging follow-up is needed. Trace perinephric fluid at the lower pole. OTHER: Right hepatic cyst measures 1.0 x 0.7 x 0.9 cm. The spleen appears heterogeneous. Medial to the spleen is a reniform structure measuring 5.1 x 3.0 x 4.0 cm. There is internal color Doppler flow. US/US renal BI IMPRESSION: Asymmetric atrophy of the right kidney with areas of cortical scarring. No hydronephrosis. Indeterminate reniform structure medial to the spleen measuring 5.1 x 3.0 x 4.0 cm. Further cross-sectional imaging correlation is needed. Assessment and Plan (1) CVA (cerebral vascular accident): Status: Acute (2) Left leg weakness: Status: Acute (3) UTI (urinary tract infection): Qualifiers: Urinary tract infection type: acute cystitis Hematuria presence: w ithout hematuria Qualified Code(s): N30.00 - Acute cystitis without hematuria Status: Acute (4) Urinary retention: Status: Acute Plan The patient is on IV Abx. Pipercillin. Urine culture sensitivies pending Recommend voiding trial prior to discharge Procedures Date of Service Date of Service: 04/09/24
[2024-04-09] MEDS: Apixaban 5 MG TABLET PO ×2 (10:07→20:35)
[2024-04-09] MEDS: Fenofibrate 160 MG TABLET 145 MG PO (10:08)
[2024-04-09] MEDS: amLODIPine Besylate 5 MG TABLET PO (10:10)
[2024-04-09] MEDS: carvediloL 12.5 MG TABLET PO ×2 (10:10→20:34)
[2024-04-09] MEDS: Isosorbide Mononitrate 30 MG TAB.ER.24H PO (10:11)
[2024-04-09] MEDS: Multivitamin TABLET 1 TAB PO (10:11)
[2024-04-09] MEDS: Aspirin 81 MG TAB.CHEW PO (10:11)
[2024-04-09] MEDS: 0.9 % Sodium Chloride Flush 3 ML SYRINGE IVFLUSH ×3 (10:12→20:36)
[2024-04-09] MEDS: Piperacillin Sodium/Tazobactam 2.25 GM in 0.9 % Sodium Chloride 50 ML IV ×3 (11:14→23:07)
--- NOTE | 2024-04-09 11:39 | MHC.CM.PN ---
CURRENTLY AWAITING URINE CX RESULTS. SNF REFERRALS AND ENHABIT VNA UPDATED. POSSIBLE DC Saturday04/10/24.
[2024-04-09 12:12] LABS: Glucose, Whole Blood 245 mg/dL (60-115)
--- NOTE | 2024-04-09 12:20 | MHC.CM.PN ---
PER CONVERSATION WITH DAUGHTER, JULIANA @ [phone], [facility] IS FIRST CHOICE. FACILITY MADE AWARE. DC PLAN IS FOR SATURDAY LATEST. CURRENTLY AWAITING URINE CX.
[2024-04-09] MEDS: Insulin Lispro 100 UNIT/ML 3 ML VIAL SUBCUT ×3 (12:21→20:35)
--- NOTE | 2024-04-09 14:52 | P.PNIM_ITS ---
Subjective Subjective Date of Service: 04/09/24 Interval History: uti Review of Systems seems imrpoving denies calf pain denies abd pain or fevers Physical Exam 2 Vital Signs: Vital Signs: Last Vital Signs Temp 97.9 F 04/09/24 10:17 Pulse 71 04/09/24 10:52 Resp 19 04/09/24 10:17 BP 148/65 H 04/09/24 10:52 Pulse Ox 96 04/09/24 10:52 O2 Del Method Room Air 04/09/24 10:17 BMI result Body Mass Index 31.1 Appearance: Alert.? Oriented X3.? cvs: rrr, [id number] . res: clear to auscultation ,no rhonchii or wheezing abd: no rebound or guarding ,nt, bs present. ext pulses present , no cyanosis neuro: axo3 , left hemiparesis Objective Data Active Medications Acetaminophen (Acetaminophen 325 Mg Tablet) 975 mg PO Q6H PRN PRN Reason: mild pain, headache or fever Last Admin: 04/08/24 21:37 Dose: 975 mg Documented By: MATTHEW Amlodipine Besylate (Amlodipine Besylate 5 Mg Tablet) 5 mg PO DAILY [facility]; Protocol Last Admin: 04/09/24 10:10 Dose: 5 mg Documented By: BARRETT Apixaban (Apixaban 5 Mg Tablet) 5 mg PO BID [facility] Last Admin: 04/09/24 10:07 Dose: 5 mg Documented By: BARRETT Aspirin (Aspirin 81 Mg Tab.Chew) 81 mg PO DAILY [facility] Last Admin: 04/09/24 10:11 Dose: 81 mg Documented By: BARRETT Atorvastatin Calcium (Atorvastatin Calcium 40 Mg Tablet) 40 mg PO BEDTIME [facility] Last Admin: 04/08/24 20:52 Dose: 40 mg Documented By: MATTHEW Carvedilol (Carvedilol 12.5 Mg Tablet) 12.5 mg PO BID [facility]; Protocol Last Admin: 04/09/24 10:10 Dose: 12.5 mg Documented By: BARRETT Fenofibrate (Fenofibrate 160 Mg Tablet) 160 mg PO DAILY [facility] Glucose (Glucose Gel 15 Gm Gel..Gram.) 15 gm PO Q15M PRN; Protocol PRN Reason: per Hypoglycemia Standing Ord. Dextrose (D10) 250 mls @ 750 mls/hr IV Q15M PRN; Protocol PRN Reason: per Hypoglycemia Standing Ord. Piperacillin Sod/Tazobactam (Sod 2.25 gm/ Sodium Chloride) 50 mls @ 100 mls/hr IV Q6H [facility] Last Infusion: 04/09/24 12:04 Dose: Infused Documented By: GEOVANNA Insulin Glargine (Insulin Glargine,Hum.Rec.Anlog 100 Unit/Ml 10 Ml Vial) 15 unit SUBCUT BEDTIME [facility] Last Admin: 04/08/24 20:53 Dose: 15 unit Documented By: MATTHEW Insulin Human Lispro (Insulin Lispro 100 Unit/Ml 3 Ml Vial) 0 unit SUBCUT QIDACHS [facility]; Protocol Last Admin: 04/09/24 12:21 Dose: 4 unit Documented By: BARRETT Isosorbide Mononitrate (Isosorbide Mononitrate 30 Mg Tab.Er.24h) 30 mg PO DAILY [facility]; Protocol Last Admin: 04/09/24 10:11 Dose: 30 mg Documented By: BARRETT Melatonin (Melatonin 3 Mg Tablet) 6 mg PO BEDTIME PRN PRN Reason: Sleep Multivitamins/Vitamin C (Multivitamin Tablet) 1 tab PO DAILY [facility] Last Admin: 04/09/24 10:11 Dose: 1 tab Documented By: BARRETT Sodium Chloride (0.9 % Sodium Chloride Flush 3 Ml Syringe) 3 ml IVFLUSH QSHIFT [facility] Last Admin: 04/09/24 10:12 Dose: 3 ml Documented By: BARRETT Labs 04/08/24 05:53 04/08/24 05:53 Labs: Laboratory Results - last 24 hr 04/08/24 04/08/24 04/09/24 16:03 20:34 07:35 POC Glucose 138 H 258 H 101 04/09/24 12:08 POC Glucose 245 H Microbiology Microbiology Results: Microbiology 04/07/24 18:39 Urine Culture - Preliminary Urine clean catch - Urine [place] top Enterococcus/Streptococcus sp Pseudomonas species Assessment and Plan (1) Pain of left calf: Status: Acute (2) UTI (urinary tract infection): Status: Acute Assessment and Plan: 73 y/o woman admitted with: Urinary retention associated with urinary tract infection, recent use of indwelling urinary catheter a rehab center (removed on March 30). s/p padilla in Ed. urine culture grew enterococci/pseudomonas-senstivities pending Continue empiric IV antibiotic switched to zosyn, Urology consult. Mild hyperkalemia likely secondary to underlying CKD. Received Lokelma and resolved. Left calf tenderness. LLE venous US showed no DVT or cyst. Likely muscular in nature. Therapy with Tylenol. History of CVA with left hemiparesis. Continue statin, aspirin and Eliquis. Type 2 diabetes mellitus with flactuating fs hemoglobin A1c is 8. Diabetic diet. Continue treatment with Lantus 15 units subQ at bedtime and insulin sliding scale. CKD, stage 4. Continue to monitor renal function. Avoid nephrotoxic agents. HFpEF. No acute respiratory signs and symptoms. BNP lower than prior. Not on diuretics. Continue carvedilol. Essential hypertension. Continue amlodipine and carvedilol. Hyperlipidemia. Continue statin and fenofibrate. Overweight: Encouraged to lose weight, cutdown down calories. generalised weak: Pt eval-rec rehab. Ongoing hospitalization need:uti,hyperkalemia ,? enterococcus /pseudomonas uti( senstivities pending)-need iv antibiotics ,moniter renal function and electrolytes,PT eval for dispo, ID eval. Quality Stroke Does the patient have a stroke diagnosis?: No VTE Prior VTE?: No VTE Risk Level:: Medical - moderate - high VTE Device Contraindication: Treatment Not Indicated VTE Drug Contraindication: N/A - Med Ordered
[2024-04-09 16:17] LABS: Glucose, Whole Blood 198 mg/dL (60-115)
[2024-04-09 19:45] LABS: Glucose, Whole Blood 216 mg/dL (60-115)
[2024-04-09] MEDS: Atorvastatin Calcium 40 MG TABLET PO (20:34)
[2024-04-09] MEDS: Insulin Glargine,Hum.rec.anlog 100 UNIT/ML 10 ML VIAL 15 UNIT SUBCUT (20:35)
[2024-04-10] VITALS (8 sets, daily range): BP systolic 126–140; BP diastolic 60–65; PULSE 60–63; RESP 14–16; TEMP 36.1–36.3; O2SAT 96–97
[2024-04-10] MEDS: Acetaminophen 325 MG TABLET 975 MG PO (00:50)
[2024-04-10] MEDS: Piperacillin Sodium/Tazobactam 2.25 GM in 0.9 % Sodium Chloride 50 ML IV (04:42)
[2024-04-10 07:39] LABS: Glucose, Whole Blood 147 mg/dL (60-115)
[2024-04-10] MEDS: amLODIPine Besylate 5 MG TABLET PO (08:37)
[2024-04-10] MEDS: Aspirin 81 MG TAB.CHEW PO (08:37)
[2024-04-10] MEDS: Fenofibrate 160 MG TABLET PO (08:37)
[2024-04-10] MEDS: Apixaban 5 MG TABLET PO ×2 (08:37→21:07)
[2024-04-10] MEDS: levoFLOXacin/D5W 750 MG/150 ML PIGGYBACK 100 MG IV (08:37)
[2024-04-10] MEDS: Multivitamin TABLET 1 TAB PO (08:37)
[2024-04-10] MEDS: 0.9 % Sodium Chloride Flush 3 ML SYRINGE IVFLUSH ×3 (08:38→21:07)
[2024-04-10] MEDS: Isosorbide Mononitrate 30 MG TAB.ER.24H PO (08:38)
[2024-04-10] MEDS: carvediloL 12.5 MG TABLET PO ×2 (08:38→21:07)
--- NOTE | 2024-04-10 09:46 | PC.NURSE ---
padilla catheter removed at 0940 intact. Due to void by 1540.
[2024-04-10 11:26] LABS: Glucose, Whole Blood 233 mg/dL (60-115)
[2024-04-10] MEDS: Insulin Lispro 100 UNIT/ML 3 ML VIAL SUBCUT ×3 (11:54→21:06)
--- NOTE | 2024-04-10 15:32 | P.PNIM_ITS ---
Subjective Subjective Date of Service: 04/10/24 Interval History: uti Review of Systems seems improving denies abd pain or fevers Physical Exam 2 Vital Signs: Vital Signs: Last Vital Signs Temp 96.9 F 04/10/24 15:27 Pulse 60 04/10/24 15:27 Resp 14 04/10/24 15:27 BP 138/65 04/10/24 15:27 Pulse Ox 97 04/10/24 15:27 O2 Del Method Room Air 04/10/24 15:27 BMI result Body Mass Index 31.1 Appearance: Alert.? Oriented X3.? cvs: rrr, [id number] . res: clear to auscultation ,no rhonchii or wheezing abd: no rebound or guarding ,nt, bs present. ext pulses present , no cyanosis neuro: axo3 , left hemiparesis Objective Data Active Medications Acetaminophen (Acetaminophen 325 Mg Tablet) 975 mg PO Q6H PRN PRN Reason: mild pain, headache or fever Last Admin: 04/10/24 00:50 Dose: 975 mg Documented By: BEAR Amlodipine Besylate (Amlodipine Besylate 5 Mg Tablet) 5 mg PO DAILY [facility]; Protocol Last Admin: 04/10/24 08:37 Dose: 5 mg Documented By: GEOVANNA Apixaban (Apixaban 5 Mg Tablet) 5 mg PO BID [facility] Last Admin: 04/10/24 08:37 Dose: 5 mg Documented By: GEOVANNA Aspirin (Aspirin 81 Mg Tab.Chew) 81 mg PO DAILY [facility] Last Admin: 04/10/24 08:37 Dose: 81 mg Documented By: GEOVANNA Atorvastatin Calcium (Atorvastatin Calcium 40 Mg Tablet) 40 mg PO BEDTIME [facility] Last Admin: 04/09/24 20:34 Dose: 40 mg Documented By: MATTHEW Carvedilol (Carvedilol 12.5 Mg Tablet) 12.5 mg PO BID [facility]; Protocol Last Admin: 04/10/24 08:38 Dose: 12.5 mg Documented By: GEOVANNA Fenofibrate (Fenofibrate 160 Mg Tablet) 160 mg PO DAILY [facility] Last Admin: 04/10/24 08:37 Dose: 160 mg Documented By: GEOVANNA Glucose (Glucose Gel 15 Gm Gel..Gram.) 15 gm PO Q15M PRN; Protocol PRN Reason: per Hypoglycemia Standing Ord. Dextrose (D10) 250 mls @ 750 mls/hr IV Q15M PRN; Protocol PRN Reason: per Hypoglycemia Standing Ord. Levofloxacin (Levaquin) 750 mg in 150 mls @ 100 mls/hr IV Q48H [facility] Insulin Glargine (Insulin Glargine,Hum.Rec.Anlog 100 Unit/Ml 10 Ml Vial) 15 unit SUBCUT BEDTIME [facility] Last Admin: 04/09/24 20:35 Dose: 15 unit Documented By: MATTHEW Insulin Human Lispro (Insulin Lispro 100 Unit/Ml 3 Ml Vial) 0 unit SUBCUT QIDACHS [facility]; Protocol Last Admin: 04/10/24 11:54 Dose: 4 unit Documented By: GEOVANNA Isosorbide Mononitrate (Isosorbide Mononitrate 30 Mg Tab.Er.24h) 30 mg PO DAILY [facility]; Protocol Last Admin: 04/10/24 08:38 Dose: 30 mg Documented By: GEOVANNA Melatonin (Melatonin 3 Mg Tablet) 6 mg PO BEDTIME PRN PRN Reason: Sleep Multivitamins/Vitamin C (Multivitamin Tablet) 1 tab PO DAILY [facility] Last Admin: 04/10/24 08:37 Dose: 1 tab Documented By: GEOVANNA Sodium Chloride (0.9 % Sodium Chloride Flush 3 Ml Syringe) 3 ml IVFLUSH QSHIFT [facility] Last Admin: 04/10/24 08:38 Dose: 3 ml Documented By: GEOVANNA Labs 04/08/24 05:53 04/08/24 05:53 Labs: Laboratory Results - last 24 hr 04/09/24 04/09/24 04/10/24 16:09 19:35 07:27 POC Glucose 198 H 216 H 147 H 04/10/24 11:20 POC Glucose 233 H Microbiology Microbiology Results: Microbiology 04/07/24 18:39 Urine Culture - Final Urine clean catch - Urine [place] Enterococcus faecalis Pseudomonas aeruginosa Assessment and Plan (1) Pain of left calf: Status: Acute (2) UTI (urinary tract infection): Status: Acute Assessment and Plan: 73 y/o woman admitted with: Urinary retention associated with urinary tract infection, recent use of indwelling urinary catheter a rehab center (removed on March 30). s/p padilla in Ed. urine culture grew enterococci/pseudomonas-senstive to levquin Urology consult noted. Mild hyperkalemia likely secondary to underlying CKD. Received Lokelma and resolved. Left calf tenderness. LLE venous US showed no DVT or cyst. Likely muscular in nature. Therapy with Tylenol. History of CVA with left hemiparesis. Continue statin, aspirin and Eliquis. Type 2 diabetes mellitus with flactuating fs hemoglobin A1c is 8. Diabetic diet. Continue treatment with Lantus 15 units subQ at bedtime and insulin sliding scale. CKD, stage 4. Continue to monitor renal function. Avoid nephrotoxic agents. HFpEF. No acute respiratory signs and symptoms. BNP lower than prior. Not on diuretics. Continue carvedilol. Essential hypertension. Continue amlodipine and carvedilol. Hyperlipidemia. Continue statin and fenofibrate. Overweight: Encouraged to lose weight, cutdown down calories. generalised weak: Pt eval-rec rehab. Ongoing hospitalization need:uti,? enterococcus /pseudomonas uti( senstivities pending)-need iv antibiotics ,moniter renal function and electrolytes,PT eval for dispo, ID eval. Plan urinary retention-seen by Urology recommended voiding trial before discharge, added Flomax. Quality Stroke Does the patient have a stroke diagnosis?: No VTE Prior VTE?: No VTE Risk Level:: Medical - moderate - high VTE Device Contraindication: Treatment Not Indicated VTE Drug Contraindication: N/A - Med Ordered
--- NOTE | 2024-04-10 16:16 | MHC.CM.PN ---
Addendum entered by Alecia Clemons 04/10/24 16:25: [facility] has offered a bed. The bed has been accepted. Patient will dc tomorrow to [facility] via BLS. Original Note: PT MEDICALLY CLEARED TO DC CM LEFT SEVERAL MESSAGES FOR [facility] VIA T/C AND [facility] NO RESPONSES HAVE BEEN RECEIVED CM RESENT REFERRAL TO [facility] WHO IS ABLE TO OFFER A BED AT THIS TIME
[2024-04-10 16:21] LABS: Glucose, Whole Blood 157 mg/dL (60-115)
[2024-04-10 19:54] LABS: Glucose, Whole Blood 174 mg/dL (60-115)
--- NOTE | 2024-04-10 20:30 | PC.NURSE ---
This RN assumed care at 1900, AOx3, reports bladder pressure, as if she needs to pee. Bladder scanned for 661ml, then straight cathed for 700cc. Pt expressed some relief of pain, reporting 5/10 tolerable pain. Respirations clear and non-labored, skin D/I, palm sized bruise to right abd. Hx of stroke, severe left leg weakness, and generalized mild weakness. BS x4 no pain with palpation. Pt is calm and cooperative with no apparent distress. Call king within reach.
[2024-04-10] MEDS: Insulin Glargine,Hum.rec.anlog 100 UNIT/ML 10 ML VIAL 15 UNIT SUBCUT (21:06)
[2024-04-10] MEDS: Atorvastatin Calcium 40 MG TABLET PO (21:07)
--- NOTE | 2024-04-10 21:53 | W.PM.IDCN ---
History of Present Illness Data of Consult Service Date: 04/09/24 Requesting physician: Shanda Owen Primary Care Provider: ROBERTO Whitehead HPI Reason for consult: hematuria She presents with hematuria for a day. She has no fevers or chills. She has enterococcu faecalis more than [id number] in urine Review of Systems Review of Systems: Yes all other systems are reviewed and are negative [facility] Past Medical History Medical History SOB (shortness of breath) Gout of big toe Elevated troponin Bilateral wheezing Leg edema Increasing shortness of breath 2+ pitting edema Cataract Hypertension Gout Family History Family history: reviewed and not pertinent Surgical History Surgical History History of cholecystectomy H/O: hysterectomy Social History Social History Household Members: Children Housing: House Do you presently have visiting nurse or other home services: No Alcohol intake: former Comment: refusing alarms Patient Tobacco Use Status: Never used Tobacco Second Hand Smoke Exposure: No Advance Directives Date on File: 04/08/24 service: No Current occupational status: retired Meds Allergies Allergy/AdvReac Type Severity Reaction Status Date / Time Penicillins [PENICILLINS] Allergy Unknown Rash Verified 04/07/24 12:33 lactose AdvReac Mild Unknown Verified 04/07/24 12:33 shellfish Allergy Mild Unknown Uncoded 04/07/24 12:33 Active Medications: Current Medications Acetaminophen (Acetaminophen 325 Mg Tablet) 975 mg PO Q6H PRN PRN Reason: mild pain, headache or fever Last Admin: 04/10/24 00:50 Dose: 975 mg Amlodipine Besylate (Amlodipine Besylate 5 Mg Tablet) 5 mg PO DAILY [facility]; Protocol Last Admin: 04/10/24 08:37 Dose: 5 mg Apixaban (Apixaban 5 Mg Tablet) 5 mg PO BID [facility] Last Admin: 04/10/24 21:07 Dose: 5 mg Aspirin (Aspirin 81 Mg Tab.Chew) 81 mg PO DAILY [facility] Last Admin: 04/10/24 08:37 Dose: 81 mg Atorvastatin Calcium (Atorvastatin Calcium 40 Mg Tablet) 40 mg PO BEDTIME [facility] Last Admin: 04/10/24 21:07 Dose: 40 mg Carvedilol (Carvedilol 12.5 Mg Tablet) 12.5 mg PO BID [facility]; Protocol Last Admin: 04/10/24 21:07 Dose: 12.5 mg Fenofibrate (Fenofibrate 160 Mg Tablet) 160 mg PO DAILY [facility] Last Admin: 04/10/24 08:37 Dose: 160 mg Glucose (Glucose Gel 15 Gm Gel..Gram.) 15 gm PO Q15M PRN; Protocol PRN Reason: per Hypoglycemia Standing Ord. Dextrose (D10) 250 mls @ 750 mls/hr IV Q15M PRN; Protocol PRN Reason: per Hypoglycemia Standing Ord. Levofloxacin (Levaquin) 750 mg in 150 mls @ 100 mls/hr IV Q48H [facility] Insulin Glargine (Insulin Glargine,Hum.Rec.Anlog 100 Unit/Ml 10 Ml Vial) 15 unit SUBCUT BEDTIME [facility] Last Admin: 04/10/24 21:06 Dose: 15 unit Insulin Human Lispro (Insulin Lispro 100 Unit/Ml 3 Ml Vial) 0 unit SUBCUT QIDAS [facility]; Protocol Last Admin: 04/10/24 21:06 Dose: 2 unit Isosorbide Mononitrate (Isosorbide Mononitrate 30 Mg Tab.Er.24h) 30 mg PO DAILY [facility]; Protocol Last Admin: 04/10/24 08:38 Dose: 30 mg Melatonin (Melatonin 3 Mg Tablet) 6 mg PO BEDTIME PRN PRN Reason: Sleep Multivitamins/Vitamin C (Multivitamin Tablet) 1 tab PO DAILY [facility] Last Admin: 04/10/24 08:37 Dose: 1 tab Sodium Chloride (0.9 % Sodium Chloride Flush 3 Ml Syringe) 3 ml IVFLUSH QSHIFT [facility] Last Admin: 04/10/24 21:07 Dose: 3 ml Home Medications ?Medication ?Instructions ?Recorded ?Confirmed ?Last Taken ?Type acetaminophen 500 mg tablet 500 mg PO DAILY PRN Pain 02/06/24 04/07/24 Unknown History insulin lispro 100 unit/mL 1 sliding scale dose subcut QIDACHS 03/01/24 04/07/24 04/07/24 History subcutaneous pen (Humalog KwikPen (U-100) Insulin) amlodipine 5 mg tablet 5 mg PO DAILY 04/07/24 04/07/24 04/07/24 History atorvastatin 40 mg tablet 40 mg PO BEDTIME 04/07/24 04/07/24 04/07/24 History carvedilol 12.5 mg tablet 12.5 mg PO BID 04/07/24 04/07/24 04/07/24 History gemfibrozil 600 mg tablet 600 mg PO BID 04/07/24 04/07/24 04/07/24 History insulin glargine 100 unit/mL (3 18 unit subcut BEDTIME 04/07/24 04/07/24 04/07/24 History mL) subcutaneous pen (Lantus Solostar U-100 Insulin) isosorbide mononitrate 30 mg 30 mg PO DAILY 04/07/24 04/07/24 Unknown History tablet,extended release 24 hr melatonin 3 mg capsule 6 mg PO BEDTIME PRN Sleep 04/07/24 04/07/24 Unknown History multivitamin with minerals 1 tab PO DAILY 04/07/24 04/07/24 Unknown History Physical Exam Vital Signs: Vital Signs: Last Vital Signs Temp 97 F 04/10/24 19:58 Pulse 63 04/10/24 21:07 Resp 14 04/10/24 19:58 BP 140/60 H 04/10/24 21:07 Pulse Ox 97 04/10/24 19:58 O2 Del Method Room Air 04/10/24 19:58 BMI result Body Mass Index 31.1 Const: General: cooperative HEENT: Head: Yes normal to inspection Face and sinus: Yes normal facial exam Mouth: Normal oral and palatal mucosa present Teeth and gingiva: dentition normal Eyes: General: appearance normal, both eyes and all related structures Pupils: Equal, round and reactive pupils present Resp: Effort & Inspection: normal respiratory effort Cardio: Rate: regular rate Rhythm: regular rhythm GI: Palpation (GI): Soft to palpation and nontender : General: Yes no CVA tenderness Back/Spine/Pelvis: Back: no CVA tenderness Skin: General skin exam: no rashes or lesions noted Neuro: General: moves all extremities Cranial nerves: Yes Equal, round and reactive pupils present Extrem: General: Yes normal to inspection Psych: Appearance: grossly normal Results Labs 04/08/24 05:53 04/08/24 05:53 Microbiology Microbiology Results: Microbiology 04/07/24 18:39 Urine clean catch - Urine hillman top Urine Culture - Final Enterococcus faecalis Pseudomonas aeruginosa Assessment and Plan (1) Urinary retention: Status: Acute (2) CVA (cerebral vascular accident): Status: Acute Plan She has hematuria and likely UTI. Would switch to po Levaquin for 14 d total.
[2024-04-11 04:00] VITALS: BP 166/74; PULSE 66; RESP 16; TEMP 36.6; O2SAT 95
[2024-04-11 07:16] VITALS: BP 178/82; PULSE 62; RESP 16; TEMP 36.4; O2SAT 97
[2024-04-11 07:31] LABS: Glucose, Whole Blood 178 mg/dL (60-115)
[2024-04-11] MEDS: 0.9 % Sodium Chloride Flush 3 ML SYRINGE IVFLUSH ×3 (07:51→20:22)
[2024-04-11] MEDS: Insulin Lispro 100 UNIT/ML 3 ML VIAL SUBCUT ×4 (07:51→20:19)
[2024-04-11] MEDS: Multivitamin TABLET 1 TAB PO (07:52)
[2024-04-11] MEDS: Isosorbide Mononitrate 30 MG TAB.ER.24H PO (07:52)
[2024-04-11] MEDS: Fenofibrate 160 MG TABLET PO (07:52)
[2024-04-11] MEDS: Apixaban 5 MG TABLET PO (07:52)
[2024-04-11] MEDS: carvediloL 12.5 MG TABLET PO ×2 (07:52→20:21)
[2024-04-11] MEDS: amLODIPine Besylate 5 MG TABLET PO (07:52)
[2024-04-11] MEDS: Aspirin 81 MG TAB.CHEW PO (07:52)
--- NOTE | 2024-04-11 09:27 | MHC.CM.PN ---
CM CALLED [facility] ,[facility] NURSING KNOWSNOTHING OF THIS POTENTIALADMISSION PT BOOKED FOR [facility] AT [address] JULIANA NOTIFIED
--- NOTE | 2024-04-11 10:27 | PM.DS ---
DS: Providers Provider Date of Service: 04/11/24 Date of admission: 04/07/24 21:25 Date of discharge: 04/11/24 Primary care physician: ROBERTO Whitehead Consults: 04/07/24 21:29 Consult to Urology Routine Consulting Provider: Serjio Gutierrez Reason for consultation: Urinary retention Has provider been notified: No 04/09/24 10:28 Consult to Infectious Diseases Routine Consulting Provider: [facility] [place] [facility] Reason for consultation: possible enterococcus/pseumonas uti Has provider been notified: No Attending physician on discharge: Shanda Owen Discharging clinician: Sahnda Owen DS: Diagnosis Discharge Diagnosis (1) Urinary retention: Status: Acute (2) CVA (cerebral vascular accident): Status: Acute Physical Exam Vital Signs: Vital Signs: Last Vital Signs Temp 97.6 F 04/11/24 07:16 Pulse 62 04/11/24 07:16 Resp 16 04/11/24 07:16 BP 178/82 H 04/11/24 07:16 Pulse Ox 97 04/11/24 07:16 O2 Del Method Room Air 04/11/24 07:16 BMI result Body Mass Index 31.1 DS: Data Data Completed and Pending Labs on day of discharge: Laboratory Results - last 24 hr 04/10/24 04/10/24 04/10/24 11:20 16:15 19:36 POC Glucose 233 H 157 H 174 H 04/11/24 07:20 POC Glucose 178 H Discharge Plan Discharge Anticipated Discharge Date/Time: 04/09/24 10:23 Patient Disposition: Xfer [facility] Discharge Diagnosis: uti Referrals: LILIANE [Other] - 1 Week Errol Grissom MD [Physician] - 1 Week Nick Nelson FNP [Primary Care Provider] - 1 Week Discharge Medications: New tamsulosin [Flomax] 0.4 mg capsule 0.8 mg PO BEDTIME Qty: 60 0RF levofloxacin 750 mg tablet 750 mg PO Q48H Qty: 7 0RF Continued (DME) lancets [FreeStyle Lancets] 28 gauge misc See Rx Instructions .Route Qty: 300 0RF Rx Instructions: Test 3 times per day (DME) blood-glucose meter [FreeStyle Lite Meter] Kit See Rx Instructions .Route Qty: 1 0RF Rx Instructions: As directed to test blood sugar 3 times per day (DME) FreeStyle Lite Strips Strip See Rx Instructions .Route Qty: 100 5RF Rx Instructions: three times per day dapagliflozin propanediol [Farxiga] 5 mg tablet 5 mg PO DAILY Qty: 30 0RF insulin lispro [Humalog KwikPen Insulin] 100 unit/mL insulin pen 1 sliding scale dose SUBCUT QIDACHS Rx Instructions: Blood Sugar: <150 - 0 units 151-200 - 4 units 201-250 - 6 units 251-300 - 8 units 301-350 - 10 units 351-400 -12 units over 400 -[address] Carmona 5 mg Tablet 5 mg PO BID Qty: 60 0RF aspirin 81 mg Tablet,Chewable 81 mg PO DAILY Qty: 90 0RF atorvastatin 40 mg tablet 40 mg PO BEDTIME amlodipine 5 mg tablet 5 mg PO DAILY gemfibrozil 600 mg tablet 600 mg PO BID isosorbide mononitrate 30 mg tablet extended release 24 hr 30 mg PO DAILY carvedilol 12.5 mg tablet 12.5 mg PO BID insulin glargine [Lantus Solostar U-100 Insulin] 100 unit/mL (3 mL) insulin pen 18 unit SUBCUT BEDTIME melatonin 3 mg Capsule 6 mg PO BEDTIME PRN (Reason: Sleep) multivitamin with minerals Tablet 1 tab PO DAILY acetaminophen 500 mg Tablet 500 mg PO DAILY PRN (Reason: Pain) (DME) FreeStyle Lite Strips Strip Qty: 100 0RF Rx Instructions: Test four times a day or as directed. (DME) blood-glucose meter [FreeStyle Lite Meter] Kit Qty: 1 0RF Rx Instructions: As Directed (DME) pen needle, diabetic 32 gauge x 1/4 needle Qty: 100 0RF Rx Instructions: Use four times a day or as directed. (DME) lancets [FreeStyle Lancets] 28 gauge misc Qty: 100 0RF Rx Instructions: Test four times a day or as directed. Diet: Advance to usual diet Activity on Discharge: As tolerated Stand Alone Forms: Patient Portal Discharge page Print Language: Sammarinese Care Plan Goals: Patient patient was admitted to the hospital because of UTI also has urinary retention, had indwelling Ponce catheter-patient has leukocytosis, no fever, in addition had some leg soreness-DVT study negative left leg, patient was started on IV antibiotics for UTI, urine cultures sent, also added Flomax for urinary retention, urology consulted. Patient seems to be improved with above supportive care, urine culture grew Enterococcus sensitive to Levaquin. Discussed with Infectious Disease recommended Levaquin 750 mg q.48h(total duration 14 days)-and date of antibiotics will be 04/24/24. Patient still has urinary retention -Ponce was inserted last night-please give voiding trial in 24 to 48 hours, consider outpatient urology evaluation. Monitor BMP in 1 week Health Concerns: As above. Plan of Treatment: As above. Assessment: As above.
--- NOTE | 2024-04-11 11:19 | MHC.CM.PN ---
dc cancelled for today facility ,family and amb all notified
[2024-04-11 11:29] LABS: Glucose, Whole Blood 183 mg/dL (60-115)
[2024-04-11] MEDS: Tamsulosin HCL 0.4 MG CAPSULE 0.8 MG PO (12:15)
--- NOTE | 2024-04-11 12:34 | P.PNIM_ITS ---
Subjective Subjective Date of Service: 04/11/24 Interval History: hematuria Review of Systems patient has urinary retention -placed padilla last night has hematuria denies other c/o. Physical Exam 2 Vital Signs: Vital Signs: Last Vital Signs Temp 97.6 F 04/11/24 07:16 Pulse 62 04/11/24 07:16 Resp 16 04/11/24 07:16 BP 178/82 H 04/11/24 07:16 Pulse Ox 97 04/11/24 07:16 O2 Del Method Room Air 04/11/24 07:16 BMI result Body Mass Index 31.1 Appearance: Alert.? Oriented X3.? cvs: rrr, [id number] . res: clear to auscultation ,no rhonchii or wheezing abd: no rebound or guarding ,nt, bs present. ext pulses present , no cyanosis Gu-hematuria,has padilla neuro: axo3 , left hemiparesis Objective Data Active Medications Acetaminophen (Acetaminophen 325 Mg Tablet) 975 mg PO Q6H PRN PRN Reason: mild pain, headache or fever Last Admin: 04/10/24 00:50 Dose: 975 mg Documented By: BEAR Amlodipine Besylate (Amlodipine Besylate 5 Mg Tablet) 5 mg PO DAILY [facility]; Protocol Last Admin: 04/11/24 07:52 Dose: 5 mg Documented By: JHONATHAN Apixaban (Apixaban 5 Mg Tablet) 5 mg PO BID [facility] Last Admin: 04/11/24 07:52 Dose: 5 mg Documented By: JHONATHAN Aspirin (Aspirin 81 Mg Tab.Chew) 81 mg PO DAILY [facility] Last Admin: 04/11/24 07:52 Dose: 81 mg Documented By: JHONATHAN Atorvastatin Calcium (Atorvastatin Calcium 40 Mg Tablet) 40 mg PO BEDTIME [facility] Last Admin: 04/10/24 21:07 Dose: 40 mg Documented By: JOSE CARLOS Carvedilol (Carvedilol 12.5 Mg Tablet) 12.5 mg PO BID [facility]; Protocol Last Admin: 04/11/24 07:52 Dose: 12.5 mg Documented By: JHONATHAN Fenofibrate (Fenofibrate 160 Mg Tablet) 160 mg PO DAILY [facility] Last Admin: 04/11/24 07:52 Dose: 160 mg Documented By: JHONATHAN Glucose (Glucose Gel 15 Gm Gel..Gram.) 15 gm PO Q15M PRN; Protocol PRN Reason: per Hypoglycemia Standing Ord. Dextrose (D10) 250 mls @ 750 mls/hr IV Q15M PRN; Protocol PRN Reason: per Hypoglycemia Standing Ord. Levofloxacin (Levaquin) 750 mg in 150 mls @ 100 mls/hr IV Q48H [facility] Insulin Glargine (Insulin Glargine,Hum.Rec.Anlog 100 Unit/Ml 10 Ml Vial) 15 unit SUBCUT BEDTIME [facility] Last Admin: 04/10/24 21:06 Dose: 15 unit Documented By: JOSE CARLOS Insulin Human Lispro (Insulin Lispro 100 Unit/Ml 3 Ml Vial) 0 unit SUBCUT QIDACHS [facility]; Protocol Last Admin: 04/11/24 11:30 Dose: 2 unit Documented By: JHONATHAN Isosorbide Mononitrate (Isosorbide Mononitrate 30 Mg Tab.Er.24h) 30 mg PO DAILY [facility]; Protocol Last Admin: 04/11/24 07:52 Dose: 30 mg Documented By: JHONATHAN Melatonin (Melatonin 3 Mg Tablet) 6 mg PO BEDTIME PRN PRN Reason: Sleep Multivitamins/Vitamin C (Multivitamin Tablet) 1 tab PO DAILY [facility] Last Admin: 04/11/24 07:52 Dose: 1 tab Documented By: JHONATHAN Sodium Chloride (0.9 % Sodium Chloride Flush 3 Ml Syringe) 3 ml IVFLUSH QSHIFT [facility] Last Admin: 04/11/24 07:51 Dose: 3 ml Documented By: JHONATHAN Tamsulosin HCl (Tamsulosin Hcl 0.4 Mg Capsule) 0.8 mg PO DAILY [facility] Labs 04/08/24 05:53 04/08/24 05:53 Labs: Laboratory Results - last 24 hr 04/10/24 04/10/24 04/11/24 16:15 19:36 07:20 POC Glucose 157 H 174 H 178 H 04/11/24 11:21 POC Glucose 183 H Assessment and Plan (1) Pain of left calf: Status: Acute (2) UTI (urinary tract infection): Status: Acute Assessment and Plan: 73 y/o woman admitted with: Urinary retention associated with urinary tract infection, recent use of indwelling urinary catheter a rehab center (removed on March 30). s/p padilla in Ed. urine culture grew enterococci/pseudomonas-senstive to levquin Urology consult -on flomab,has kimberlyn padilla for hematuria -if worsen may need cbi and urology followup. Mild hyperkalemia likely secondary to underlying CKD. Received Lokelma and resolved. Left calf tenderness. LLE venous US showed no DVT or cyst. Likely muscular in nature. Therapy with Tylenol. History of CVA with left hemiparesis. Continue statin, hold aspirin and Eliquis due to hematuria. Type 2 diabetes mellitus with flactuating fs hemoglobin A1c is 8. Diabetic diet. Continue treatment with Lantus 15 units subQ at bedtime and insulin sliding scale. CKD, stage 4. Continue to monitor renal function. Avoid nephrotoxic agents. HFpEF. No acute respiratory signs and symptoms. BNP lower than prior. Not on diuretics. Continue carvedilol. Essential hypertension. Continue amlodipine and carvedilol. Hyperlipidemia. Continue statin and fenofibrate. Overweight: Encouraged to lose weight, cutdown down calories. generalised weak: Pt eval-rec rehab. Ongoing hospitalization need:uti,? enterococcus /pseudomonas uti( senstivities pending)-need iv antibiotics ,moniter renal function and electrolytes,PT eval for dispo, ID eval. Plan urinary retention-seen by Urology recommended voiding trial before discharge, added Flomax. Quality Stroke Does the patient have a stroke diagnosis?: No VTE Prior VTE?: No VTE Risk Level:: Medical - moderate - high VTE Device Contraindication: Treatment Not Indicated VTE Drug Contraindication: N/A - Med Ordered
[2024-04-11 15:42] VITALS: BP 136/59; PULSE 60; RESP 16; TEMP 36.2; O2SAT 97
[2024-04-11 16:17] LABS: Glucose, Whole Blood 226 mg/dL (60-115)
[2024-04-11 19:28] VITALS: BP 151/69; PULSE 65; RESP 16; TEMP 36.1; O2SAT 97
[2024-04-11] MEDS: Insulin Glargine,Hum.rec.anlog 100 UNIT/ML 10 ML VIAL 15 UNIT SUBCUT (20:20)
[2024-04-11] MEDS: Atorvastatin Calcium 40 MG TABLET PO (20:20)
[2024-04-11 20:21] VITALS: BP 151/69; PULSE 65
[2024-04-11] MEDS: Melatonin 3 MG TABLET 6 MG PO (20:21)
[2024-04-11 21:23] LABS: Glucose, Whole Blood 195 mg/dL (60-115)
[2024-04-12 04:00] VITALS: BP 141/65; PULSE 62; RESP 16; TEMP 36.3; O2SAT 97
[2024-04-12 07:28] VITALS: BP 150/67; PULSE 60; RESP 14; TEMP 36.6; O2SAT 96
[2024-04-12 07:38] LABS: Glucose, Whole Blood 89 mg/dL (60-115)
[2024-04-12 08:13] LABS: Hematocrit 26.7 % (37.0-47.0); Hemoglobin 8.8 g/dl (12.0-16.0)
[2024-04-12 08:34] VITALS: BP 154/71
[2024-04-12] MEDS: Isosorbide Mononitrate 30 MG TAB.ER.24H PO (08:34)
[2024-04-12] MEDS: Tamsulosin HCL 0.4 MG CAPSULE 0.8 MG PO (08:34)
[2024-04-12 08:35] VITALS: PULSE 64
[2024-04-12] MEDS: Fenofibrate 160 MG TABLET PO (08:35)
[2024-04-12] MEDS: 0.9 % Sodium Chloride Flush 3 ML SYRINGE IVFLUSH (08:35)
[2024-04-12] MEDS: carvediloL 12.5 MG TABLET PO (08:35)
[2024-04-12] MEDS: levoFLOXacin/D5W 750 MG/150 ML PIGGYBACK 100 MG IV (08:35)
[2024-04-12] MEDS: Multivitamin TABLET 1 TAB PO (08:35)
[2024-04-12] MEDS: amLODIPine Besylate 5 MG TABLET PO (08:35)
--- NOTE | 2024-04-12 10:59 | MHC.CM.PN ---
PT RESCHEDULED FOR 2 DC TO [facility]
--- NOTE | 2024-04-12 11:00 | MHC.CM.PN ---
RICARDO ANDREWS NOTIFIED OF DC TODAY
--- NOTE | 2024-04-12 11:04 | MHC.CM.PN ---
SPOKE WITH HCP REMA RODRIGUEZ IS [employer] IMM LEFT AT BEDSIDE
--- NOTE | 2024-04-12 11:10 | PM.DS ---
DS: Providers Provider Date of Service: 04/12/24 Date of admission: 04/07/24 21:25 Date of discharge: 04/12/24 Primary care physician: ROBERTO Whitehead Consults: 04/07/24 21:29 Consult to Urology Routine Consulting Provider: Serjio Gutierrez Reason for consultation: Urinary retention Has provider been notified: No 04/09/24 10:28 Consult to Infectious Diseases Routine Consulting Provider: [facility] Reason for consultation: possible enterococcus/pseumonas uti Has provider been notified: No Attending physician on discharge: Shanda Owen Discharging clinician: Shanda Owen DS: Diagnosis Discharge Diagnosis (1) Urinary retention: Status: Acute (2) CVA (cerebral vascular accident): Status: Acute DS: Summary Hospital Course Hospital Course: 73 years old woman with past medical history significant for type 2 diabetes mellitus on insulin,HFpEF, recent CVA with left hemiparesis on Eliquis, CKD, hyperlipidemia and essential hypertension, was brought to the emergency department due to left calf pain that started 2 days ago. HPI was mostly provided by patient's daughter who was at bedside. Daughter stated that she feels like her mom has a lump in her left calf. Daughter also mentioned that the patient has not been taking her Eliquis over the last couple of days due to prescription issues. No history of recent trauma reported. There is no fevers chills reported. Patient denied any pain or shortness on breath. Patient did not report any acute abdominal symptoms. According to daughter the patient was recently discharged (April 04) from rehab center, [facility], after she had CVA. She said that the patient required indwelling urinary catheter X1 week that was discontinued on March 30. Patient did not state any opioids or PHARMACY SCHEDULER meds. Patient has history (01/2024) of urinary tract infection secondary to E coli (pansensitive) In the ED, she was found to have stable vital signs. Blood workup is remarkable for mild hyperkalemia of 5.4, there is no lactic acidosis. Creatinine is 2.43 which is slightly higher than baseline. LFTs are normal. Glucose is 175 and BNP is 186 which is lower than prior. Left lower extremity venous US no evidence of DVT or cyst. Urinalysis consistent with urinary tract infection. ED tx: NS 1 L bolus, Lokelma 10 g PO, ceftriaxone 1 g IV and Tylenol 975 mg PO. Hospital course: Patient patient was admitted to the hospital because of UTI also has urinary retention, had indwelling Padilla catheter-patient has leukocytosis, no fever, in addition had some leg soreness-DVT study negative left leg, patient was started on IV antibiotics for UTI, urine cultures sent, also added Flomax for urinary retention, urology consulted. Patient seems to be improved with above supportive care, urine culture grew Enterococcus sensitive to Levaquin. Discussed with Infectious Disease recommended Levaquin 750 mg q.48h(total duration 14 days)-and date of antibiotics will be 04/24/24. hemturia seems possible traumatic due to padilla -seems resolved( h/h stable around 8.8/26.7) , urinary retention -has Padilla,on flomax -please give voiding trial in 24 to 48 hours, consider outpatient urology evaluation. Monitor BMP in 1 week. plan: complete levaquin 750 mg po q 48 hr for 14 days. urinary retention -has Padilla,on flomax -please give voiding trial in 24 to 48 hours, consider outpatient urology evaluation. monitor BMP in 1 week.consider outpatient urology evaluation. moniter cbc q weekly and further anemia workup outpatient. Above management discussed with the patient daughter and patient detail legnth ,they understands and inagreement with plan .time spent 40min. Time Attestation Total time managing care of this patient today: 40 mintues. Discharge Coordination Time (in mins): 40 min Quality: Safe Use of Opioids Does Pt have an Active Cancer Diagnosis on the Problem List?: No Quality: Stroke Does the patient have a stroke diagnosis?: No Physical Exam Vital Signs: Vital Signs: Last Vital Signs Temp 97.8 F 04/12/24 07:28 Pulse 64 04/12/24 08:35 Resp 14 04/12/24 07:28 BP 154/71 H 04/12/24 08:34 Pulse Ox 96 04/12/24 07:28 O2 Del Method Room Air 04/12/24 07:28 BMI result Body Mass Index 31.1 Appearance: Alert.? Oriented X3.? cvs: rrr, [id number] . res: clear to auscultation ,no rhonchii or wheezing abd: no rebound or guarding ,nt, bs present. Gu-Has padilla ,clear urine. ext pulses present , no cyanosis neuro: axo3 , left hemiparesis DS: Data Data Completed and Pending Labs on day of discharge: Laboratory Results - last 24 hr 04/11/24 04/11/24 04/11/24 11:21 16:05 19:30 Hgb Hct POC Glucose 183 H 226 H 195 H 04/12/24 04/12/24 07:30 07:47 Hgb 8.8 L Hct 26.7 L POC Glucose 89 Discharge Plan Discharge Anticipated Discharge Date/Time: 04/09/24 10:23 Patient Disposition: Xfer SNF Discharge Diagnosis: uti Referrals: LILIANE [Other] - 1 Week Errol Grissom MD [Physician] - 1 Week Nick Nelson FNP [Primary Care Provider] - 1 Week Discharge Medications: New tamsulosin [Flomax] 0.4 mg capsule 0.8 mg PO BEDTIME Qty: 60 0RF levofloxacin 750 mg tablet 750 mg PO Q48H Qty: 7 0RF Continued (DME) lancets [FreeStyle Lancets] 28 gauge misc See Rx Instructions .Route Qty: 300 0RF Rx Instructions: Test 3 times per day (DME) blood-glucose meter [FreeStyle Lite Meter] Kit See Rx Instructions .Route Qty: 1 0RF Rx Instructions: As directed to test blood sugar 3 times per day (DME) FreeStyle Lite Strips Strip See Rx Instructions .Route Qty: 100 5RF Rx Instructions: three times per day dapagliflozin propanediol [Farxiga] 5 mg tablet 5 mg PO DAILY Qty: 30 0RF insulin lispro [Humalog KwikPen Insulin] 100 unit/mL insulin pen 1 sliding scale dose SUBCUT QIDACHS Rx Instructions: Blood Sugar: <150 - 0 units 151-200 - 4 units 201-250 - 6 units 251-300 - 8 units 301-350 - 10 units 351-400 -12 units over 400 -[address] Carmona 5 mg Tablet 5 mg PO BID Qty: 60 0RF aspirin 81 mg Tablet,Chewable 81 mg PO DAILY Qty: 90 0RF atorvastatin 40 mg tablet 40 mg PO BEDTIME amlodipine 5 mg tablet 5 mg PO DAILY gemfibrozil 600 mg tablet 600 mg PO BID isosorbide mononitrate 30 mg tablet extended release 24 hr 30 mg PO DAILY carvedilol 12.5 mg tablet 12.5 mg PO BID insulin glargine [Lantus Solostar U-100 Insulin] 100 unit/mL (3 mL) insulin pen 18 unit SUBCUT BEDTIME melatonin 3 mg Capsule 6 mg PO BEDTIME PRN (Reason: Sleep) multivitamin with minerals Tablet 1 tab PO DAILY acetaminophen 500 mg Tablet 500 mg PO DAILY PRN (Reason: Pain) (DME) FreeStyle Lite Strips Strip Qty: 100 0RF Rx Instructions: Test four times a day or as directed. (DME) blood-glucose meter [FreeStyle Lite Meter] Kit Qty: 1 0RF Rx Instructions: As Directed (DME) pen needle, diabetic 32 gauge x 1/4 needle Qty: 100 0RF Rx Instructions: Use four times a day or as directed. (DME) lancets [FreeStyle Lancets] 28 gauge misc Qty: 100 0RF Rx Instructions: Test four times a day or as directed. Discharge Orders: Discharge Order (Routine); Ordered 04/12/24 Ordered By: Shanda Owen Diet: Advance to usual diet Activity on Discharge: As tolerated Stand Alone Forms: Patient Portal Discharge page Print Language: Khmer Care Plan Goals: Patient patient was admitted to the hospital because of UTI also has urinary retention, had indwelling Padilla catheter-patient has leukocytosis, no fever, in addition had some leg soreness-DVT study negative left leg, patient was started on IV antibiotics for UTI, urine cultures sent, also added Flomax for urinary retention, urology consulted. Patient seems to be improved with above supportive care, urine culture grew Enterococcus sensitive to Levaquin. Discussed with Infectious Disease recommended Levaquin 750 mg q.48h(total duration 14 days)-and date of antibiotics will be 04/24/24. Patient still has urinary retention -has Padilla-please give voiding trial in 24 to 48 hours, consider outpatient urology evaluation. Monitor BMP in 1 week. Health Concerns: As above. Plan of Treatment: As above. Assessment: As above.
[2024-04-12 11:19] LABS: Glucose, Whole Blood 213 mg/dL (60-115)
[2024-04-12] MEDS: Insulin Lispro 100 UNIT/ML 3 ML VIAL SUBCUT (11:39)
== END 2024-04-12 13:57 | disposition skilled nursing facility (03) | DRG 690 ==
LOC: HO.ED 17:23 → HO.EDOVER 21:41 → HO.S3 04-08 00:09
PROVIDERS: Nurse Practitioner Family; Admitting Provider Internal Medicine; Emergency Provider Internal Medicine; PCP Nurse Practitioner Primary Care; Visit Provider Internal Medicine
DX: N30.00 Acute cystitis without hematuria (principal); I13.0 Hypertensive heart and chronic kidney disease with heart failure and stage 1 through stage 4 chronic kidney disease, or unspecified chronic kidney disease; N18.4 Chronic kidney disease, stage 4 (severe); I69.354 Hemiplegia and hemiparesis following cerebral infarction affecting left non-dominant side; I50.32 Chronic diastolic (congestive) heart failure; B95.2 Enterococcus as the cause of diseases classified elsewhere; B96.5 Pseudomonas (aeruginosa) (mallei) (pseudomallei) as the cause of diseases classified elsewhere; R33.9 Retention of urine, unspecified; E66.3 Overweight; M79.18 Myalgia, other site; Z68.31 Body mass index [BMI] 31.0-31.9, adult; E87.5 Hyperkalemia; E78.5 Hyperlipidemia, unspecified; E11.22 Type 2 diabetes mellitus with diabetic chronic kidney disease; T45.516A Underdosing of anticoagulants, initial encounter; Z87.440 Personal history of urinary (tract) infections; Z79.01 Long term (current) use of anticoagulants; Z79.4 Long term (current) use of insulin; Z79.82 Long term (current) use of aspirin; Z79.899 Other long term (current) drug therapy
CPT/HCPCS: 36415; 73590; 80048; 80053; 81001; 81003; 82550; 82947; 83036; 83735; 83880; 84100; 85007; 85014; 85018; 85025; 85027; 85610; 87086; 87088; 87186; 93005; 93971; 97110; 97162; 99285; C1758; J0696; J1956; J2543

== ENCOUNTER → 2024-04-07 18:03 | Outpatient (BNV) | payer MEDICARE, SELFPAY | PROVIDERS: Admitting Provider Internal Medicine; Emergency Provider Internal Medicine; Visit Provider Internal Medicine | DX: E87.5 Hyperkalemia (principal) | CPT/HCPCS: 93010 ==

== ENCOUNTER → 2024-04-07 21:25 | Outpatient (BNV) | payer MEDICARE, SELFPAY | PROVIDERS: Admitting Provider Internal Medicine; Emergency Provider Internal Medicine; PCP Nurse Practitioner Primary Care; Visit Provider Urology | DX: I63.9 Cerebral infarction, unspecified (principal); R29.898 Other symptoms and signs involving the musculoskeletal system; N30.00 Acute cystitis without hematuria; R33.9 Retention of urine, unspecified | CPT/HCPCS: 99222 ==

== ENCOUNTER → 2024-04-07 21:25 | Outpatient (BNV) | payer MEDICARE, SELFPAY | PROVIDERS: Admitting Provider Internal Medicine; Emergency Provider Internal Medicine; PCP Nurse Practitioner Primary Care; Visit Provider Internal Medicine | DX: R33.9 Retention of urine, unspecified (principal); I63.9 Cerebral infarction, unspecified | CPT/HCPCS: 99222 ==

== ENCOUNTER → 2024-04-07 21:25 | Outpatient (BNV) | payer MEDICARE, SELFPAY | PROVIDERS: Admitting Provider Internal Medicine; Emergency Provider Internal Medicine; Visit Provider Internal Medicine | DX: N30.00 Acute cystitis without hematuria (principal); R33.9 Retention of urine, unspecified; I63.9 Cerebral infarction, unspecified | CPT/HCPCS: 99223; 99231; 99232; 99239 ==

== ENCOUNTER → 2024-05-28 13:32 | Outpatient (BNVA) | payer MEDICARE, SELFPAY | PROVIDERS: PCP Nurse Practitioner Primary Care; Visit Provider Internal Medicine Hypertension Specialist | DX: E11.22 Type 2 diabetes mellitus with diabetic chronic kidney disease (principal); N18.9 Chronic kidney disease, unspecified; N17.9 Acute kidney failure, unspecified | CPT/HCPCS: 99212 ==

== ENCOUNTER 2024-05-28 13:34 | Outpatient (AMB) | payer MEDICARE, SELFPAY ==
[2024-05-28 13:30] VITALS: BP 124/64; PULSE 64; O2SAT 96
--- NOTE | 2024-05-28 13:30 | HO.NEPHOV_ITS ---
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 She was recently hospitalized and was found to have acute kidney injury. During workup she was found to have about 5 g of proteinuria. At the time of discharge serum creatinine decreased to 2.8 mg/dL. She appeared euvolemic. She was on valsartan and Jardiance which were placed on hold. Today she was accompanied by her daughter. Blood pressure is still suboptimal blood sugar is suboptimal. She has no shortness of breath at rest. She has shortness of breath on exertion. no nausea or vomiting. No urinary symptoms. [facility] Medical History SOB (shortness of breath) Gout of big toe Elevated troponin Bilateral wheezing Leg edema Increasing shortness of breath 2+ pitting edema Cataract Hypertension Gout Surgical History History of cholecystectomy H/O: hysterectomy Social History Household Members: Children Housing: House Do you presently have visiting nurse or other home services: No Alcohol intake: former Comment: refusing alarms Patient Tobacco Use Status: Never used Tobacco Second Hand Smoke Exposure: No Advance Directives Date on File: 04/08/24 service: No Current occupational status: retired Physical Exam Vital Signs: Last Vital Signs Pulse 64 05/28/24 13:30 BP 124/64 05/28/24 13:30 Pulse Ox 96 05/28/24 13:30 Oxygen Delivery Method Room Air 05/28/24 13:30 Last Vital Signs Temp 96.5 F L 02/13/24 11:05 Pulse 72 02/13/24 11:41 Resp 16 02/13/24 11:41 BP 103/58 L 02/13/24 11:05 Pulse Ox 95 02/13/24 11:05 O2 Del Method Room Air 02/13/24 11:05 BMI result Body Mass Index 34.3 Awake. Comfortable. Neck is supple. Mucosa moist. Lungs clear Heart S1-S2 heard no gallop. Abdomen soft. Extremities no edema. No involuntary movements. No myoclonus. Const Nutritional Appearance: well nourished Orientation/consciousness: patient oriented x3 HEENT Head: No normal to inspection Mouth: moist mucous membranes Neck Neck: Yes supple and Yes no JVD Resp Auscultation: crackles Cardio Jugular venous distension: no JVD Palpation: no palpable S3 and no palpable S4 Heart sounds: no rubs GI Palpation (GI): Soft to palpation and nontender Percussion: No Fluid wave present General: Yes no CVA tenderness Back/Spine/Pelvis Back: no CVA tenderness Skin General skin exam: no rashes or lesions noted Neuro General: patient oriented x3 Extrem General: No clubbing Results Reviewed Nephrology Results: Hgb 8.8 g/dl (12.0-16.0) L 04/12/24 WBC 15.3 X10*3/uL (4.8-10.8) H 04/08/24 Plt Count 286 X10*3/uL (160-400) 04/08/24 Sodium 139 mmol/L (135-145) 04/08/24 Potassium 4.5 mmol/L (3.3-5.1) 04/08/24 Chloride 111 mmol/L (96-108) H 04/08/24 Carbon Dioxide 22 mmol/L (22-29) 04/08/24 BUN 66 mg/dL (9-16) H 04/08/24 Creatinine 2.13 mg/dL (0.5-1.4) H 04/08/24 Calcium 9.9 mg/dL (8.4-10.2) 04/08/24 Phosphorus 4.2 mg/dL (2.7-4.5) 04/08/24 PTH Intact 308.9 pg/mL (8.7-77.1) H 02/18/24 Urine Protein 300 (3+) mg/dL (Neg-Trace) H 04/07/24 Assessment & Plan Assessment & Plan (1) Acute kidney injury superimposed on chronic kidney disease: Comment: Patient will continue to follow up with nephrology. Will continue to control blood sugar levels. Code(s): N17.9 - Acute kidney failure, unspecified; N18.9 - Chronic kidney disease, unspecified Category: Medical Plan 73-year-old woman with chronic kidney disease. She has proteinuria most likely due to underlying diabetic nephropathy. 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 Baseline creatinine is around 2.2 mg/dL. She sustained DANISH due to hypoperfusion. Renal function has improved and close to baseline. At this point the goal is to slow the portion disease Continue overt nephrotoxic agents. Agree with SGLT-2 inhibitor We discussed importance of tight control of blood sugar and blood pressure to slow the portion disease. BP is well controlled Anemia due to underlying chronic kidney disease. No absolute indication for Epogen yet She will follow closely. Coding Level of Care Code Est Pt Level 4 (21051) Diagnoses Acute kidney injury superimposed on chronic kidney disease N17.9; N18.9
--- OUTSIDE RECORDS SUMMARY | 2024-05-28 13:33 | XMS_ITS | Continuity of Care Document ---
Author Organization [facility] Address [address] [place] [address]- Care Team Providers Care Business Intelligence Administrator Name Role Phone Not on Staff, PCP Primary Care Physician Unavail able Encounter [facility] Date(s): 03/19/24 - 04/18/24 [facility] [address], [address] [place] [phone]- Allergies, Adverse Reactions, Alerts Substance Reaction Severity [...] opioid drug. Start Date: 03/12/24 Status: Ordered Docusate Sodium Capsule 100 mg, 1, capsule, [...] List Condition Confirmation Course Effective Dates Status Health St atus Informant Obese class I Confirmed Active Social History Social History Type Response Smoking Status Never; Previous brianne tment: None entered on: 03/07/24 Sex Patient Care team information Care Team Personnel Name: Pauline Hearn RN Position: S RN Member Role: Primary Care Nurse Name: Not on Staff, PCP Position: [facility] Physician (General Medicine) Member Role: PCP Name: Lovely Acosta RN Position: S RN Member Role: Primary Care Nurse Name: Jace Atkins RN Position: S RN Member Role: Primary Care Nurse Care Team Related Persons Name: JULIANA SANZ Name: PAUL DRIVER Address: [place] [address]
--- OUTSIDE RECORDS SUMMARY | 2024-05-28 13:33 | XMS_ITS | Continuity of Care Document ---
Author Organization [facility] Address [address] [place] [id number]- Care Team Providers Care Hand Nailer Name Role Phone Aquiles VIEIRA, Paul Primary Care Physician [phone] Encounter [facility] [place] Date(s): 05/02/24 - 05/04/[address] [address]- Encounter Diagnosis Pancreatitis(Final) - 05/02/24 Transaminitis(Final) - 05/02/24 Urinary retention(Final) - 05/02/24 Colitis(Final) - 05/02/24 Hyponatremia(Final) - 05/02/24 Discharge Disposition: A-Transfer SNF Attending Physician: Jeff Juan MD Admitting Physician: Quinten Johnson MD Referring Physician: Not on Staff, Referring [...] carvedilol 12.5 mg oral tablet 12.5 mg, Tablet, By Mouth, 05/04/24 9:00:00 EDT Start Date: 05/04/24 Stop Date: 05/04/24 Status: Completed carvedilol 12.5 mg oral tablet 12.5 mg, 1, tablet, By Mouth, 2 times a day, # 180 tablet, Refills 0, Maintenance, 03/07/24 19:46:00 EDT, Partial fill upon patient request if the prescription is for a schedule II opioid drug. Start Date: 03/07/24 Status: Ordered Docusate Sodium Capsule 100 mg, [...] Exam Date Time Procedure Performing Provider Status 05/02/24 10:35 AM Chest Portable Daisy Cantor; Claudio (Ve rified) Notes: (Chest Portable) Reason For Exam: Shortness of Breath RESULT: Chest Portable AP upright portable chest dated May 02, 2024 at 0957 hours. Comparison films are from March 07, 2024. HISTORY: Shortness of breath. FINDINGS: The cardiac silhouette is at the upper limits of normal for size. Mural calcifications noted in the aorta. Some linear densities present at the left lung base likely atelectasis. The right lung is clear. Degenerative changes are noted in the spine. IMPRESSION: Findings most consistent with left lower lobe atelectasis. Examination 50[address]. Thank you for allowing me to participate in the care of this patient. 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 Epigastric abdominal pain x 2 days. Tender with palpation. Vomiting x 1 day. unable to tolerate PO liquid or food x 1 day. has not had a bowel movement or passing gas x 1 day. Denies SOB or chest pain. AxOx4; Reason: Abdominal Pain; Clinical Question(s): Pancreatitis COMPARISON: CT abdomen/pelvis 09/01/2024 and ultrasound 03/11/2024 FINDINGS: Liver: Normal in size and echotexture. No focal lesion. Smooth hepatic contour. Main portal vein patent with normal hepatopetal direction of flow. Gallbladder: Status post cholecystectomy. Biliary Tree: No intrahepatic bile duct dilation is identified. Common duct measures up to 2.1 cm, likely related to postcholecystectomy status. Pancreas: Partially obscured by overlying bowel gas. No abnormality in the visualized portions of the pancreas. Right kidney: 8.1 cm in length. Normal parenchymal echotexture and thickness. Mild hydronephrosis. Few echogenic foci with twinkle artifact likely represent stones, largest measuring 0.6 cm. No mass. IMPRESSION: 1. Mild right hydronephrosis. 2. Nonobstructing right nephrolithiasis. 3. Partially visualized pancreas appears unremarkable. Results were conveyed via [employer] by Dr Brennan to Pita ORTIZ on 05/02/2024 at 1:12 AM with understanding acknowledged. I have personally reviewed the images and I agree with this report. 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 Epigastric abdominal pain x 2 days. Tender with palpation. Vomiting x 1 day. Unable to tolerate PO liquid or food x 1 day. Has not had a bowel movement or passing gas x 1 day. Denies SOB or chest pain. AxOx4; Reason: Other:; abd pain; Clinical Question(s): Obstruction; abd pain; Order Comment: TECHNIQUE: Spiral CT through the abdomen and pelvis without IV contrast formatted in 3 planes. Thisstudy was performed without oral contrast. Weight- based protocol using automatic tube modulation was used to optimize exposure parameters. CTDIvol Body: 15.20 mGy, DLP Body: 822 mGy*cm. COMPARISON: None. FINDINGS: Tool Room Gear Machine Operator View Findings, Lines and Tubes: None. Visualized Chest: Bilateral basal ground glass opacity os (series 201:1, 7). No priors are available for comparison at this time. Bilateral basal atelectasis. Mild cardiomegaly. Trace pleural effusion. No pericardial effusion. Diaphragm: Normal. Liver: Normal. Gallbladder: Absent consistent with prior cholecystectomy. Bile ducts: Dilated common bile duct measuring 15 mm, which may be secondary to reservoir effect aspatient is status postcholecystectomy. Spleen: Normal. Pancreas: Mild pancreatic atrophy. Adrenal glands: Normal. Kidneys and ureters: Punctate right interpolar calculus with overlying cortical scarring. Another small right lower pole nonobstructive punctate calculi scapula's is noted, and a left upper pole 2 mmcalculus is also noted. Fullness of the bilateral renal collecting systems without hydronephrosis No noncontrast evidence of suspicious masses. Bladder: Moderate to marked distended bladder. Reproductive organs: Status post hysterectomy. Stomach, small bowel, and large bowel: Moderate rectal distention measuring up to 7.1 cm in AP dimension (series 203:66). Moderate wall thickening and adjacent fat stranding suggestive of stercoral colitis. Moderate to severe colonic diverticulosis without diverticulitis. Stomach and small bowel are unremarkable. Appendix: Not seen. Peritoneum and retroperitoneum: No ascites or pneumoperitoneum. No omental or mesenteric lesions. Lymph nodes: No enlarged lymph nodes. Blood vessels: Normal. No aneurysm. Abdominal and pelvic wall: Small fat-containing periumbilical hernia. Bones: No acute abnormality. Mild degenerative changes of the visualized spine. IMPRESSION: 1. Mild rectal fecal impaction with associated stercoral colitis. 2. Moderately distended bladder with fullness of the bilateral renal collecting systems, correlate clinically for signs of urinary retention. 3. Partially visualized bilateral basal ground glass opacities may indicate underlying infection/inflammation. Results were conveyed via [employer] by Dr. Quinten Simmons on 05/01/2024 to Pita ORTIZ at 11:52 PM. I have personally reviewed the images and I agree with this report. WSN: [id number] Ordering Physician: Pita Ngo Dictated By: Quinten Simmons MD Dictated Date/Time: 05/01/24 11:54 p Reviewed By: Naila Connolly MD Signed By: Naila Connolly MD Signed Date/Time: 05/01/24 11:59 pm Transcribed By: ESTEBAN Transcribed Date/Time: 05/01/24 11:52 pm Vital Signs Most recent to oldest [Reference Range]: 1 2 3 Height 153 cm (05/04/24 11:32 AM) 153 cm (05/02/24 4:17 AM) Weight 74.2 kg (05/02/24 4:17 AM) Oxygen Saturation [94-100 %] 98 % (05/04/24 11:32 AM) 100 % (05/04/24 7:00 AM) 99 % (05/03/24 8:00 PM) Pulse Rate [55-90 bpm] 58 bpm (05/04/24 11:32 AM) 56 bpm (05/04/24 8:41 AM) 56 bpm (05/04/24 7:00 AM) Body Mass Index [18.5-24.99 kg/m2] 31.7 kg/m2 *>HHI* (05/02/24 4:17 AM) Blood Pressure [90-138/55-84 mm Hg] 166/64mm Hg *H* (05/04/24 11:32 AM) 149/68mm Hg *H* (05/04/24 8:41 AM) 149/68mm Hg *H* (05/04/24 7:00 AM) Respiratory Rate [16-30 br/min] 18 br/min (05/04/24 11:32 AM) 17 br/min (05/04/24 7:00 AM) 17 br/min (05/03/24 8:00 PM) Temperature [96.8-100.4 DegF] 98.5 DegF (05/04/24 11:32 AM) 97.9 DegF (05/04/24 7:00 AM) 97.9 DegF (05/03/24 8:00 PM) Mode of Delivery (Oxygen) Room air (05/04/24 11:32 AM) BiPAP (05/04/24 7:00 AM) BiPAP (05/03/24 8:00 PM) Blood pressure sites Arm, right (05/04/24 11:32 AM) Arm, left (05/04/24 7:00 AM) Arm, left (05/03/24 8:00 PM) Temperature Route Oral (05/04/24 11:32 AM) Oral (05/04/24 7:00 AM) Oral (05/03/24 8:00 PM) Dry Weight 74.2 kg (05/02/24 4:17 AM) Social History Social History Type Response Smoking Status Never; Previous brianne tment: None entered on: 03/07/24 Sex Admission evaluation note * Ernst VIEIRA, Guanakito: PERFORM, MODIFY, MODIFY Event Display: Admission Note Authored Date: [id number] 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 Age:??73 Years?Sex:??Female?:??1950?? Chief Complaint/Reason for Consultation from SNF. [facility] called for abdominal pain x 1 day. They stated she is impacted, vomiting forone hour with fecal like matter emisis . AxOx4. hx diabetes II, stroke, and hypertension History of Present Illness 73-year-old female with h/o recent stroke with residual left hemiparesis (02/2024), ?pAFib on Eliquis, HF, DM2, h/o cholecystectomy 14 to the ED by With complaint of poor oral intake, abdominal pain, nausea, vomiting. ?? History is obtained from patient and daughter at bedside. ?? Patient has been very weak and mostly in bed after her stroke diagnosis.?? After [facility] months patient had to be readmitted to [facility] for UTI.?? She was sent to rehab following that.?? For the last week she has been nauseous.?? She felt constipated and did not have a bowel movement.?? For the last 3 days having worsening abdominal pain.?? Pain is dull and mostly in epigastric region radiating towards the side.?? Abdomen felt very tender.??Daughter also noted patient to be more confused and weak.??Abdominal pain started to get worse and she started to havemultiple episodes of vomiting after which she was sent to ED.?? Denies any fever or chills, chest pain, shortness of breath, dysuria. ?? In the ED she is noted to have high lipase of 1155 with transaminitis.?? CT scan showed sterile coral colitis.?? She also had urinary retention for which a straight catheterization was done.?? Patient is seen by surgery???unclear etiology of pancreatitis.?? She is admitted for further management. Review of Systems A full review of systems was completed and is otherwise negative except as mentioned in history of present illness. Objective Vital Signs?? Temperature: 97.6 DegF (05/02/24 07:53:00) Temperature Route: Oral (05/02/24 07:53:00) Pulse Rate: 57 bpm (05/02/24 09:36:00) Respiratory Rate: 18 br/min (05/02/24 09:46:00) Systolic Blood Pressure: 132 mm Hg (05/02/24 09:36:00) Diastolic Blood Pressure: 58 mm Hg (05/02/24 09:36:00) Blood pressure sites: Arm, right (05/02/24 07:53:00) Mean Arterial Pressure: 83 mm Hg (05/02/24 04:17:00) Pulse Pressure: 74 mm Hg (05/02/24 07:53:00) Oxygen Saturation: 98 % (05/02/24 07:53:00) Mode of Delivery (Oxygen): Room air (05/02/24 07:53:00) Early Warning Score: 3 (05/02/24 09:46:47) ? Physical Exam General:??Alert, awake, not in?? acute cardiopulmonary distress. Ear, Nose and Throat:??Oropharynx clear, mucous membranes moist.??no thrush Neck:??Supple, Full range of motion. Respiratory:??Clear to auscultation??. No wheezing, rales or rhonchi. Cardiovascular:??Heart sounds normal. Regular rate and rhythm, no murmurs Gastrointestinal:??epigastric tenderness, no rebound tenderness. Normal bowel sounds. Genitourinary:??No costovertebral angle tenderness. Neurologic:??Cranial nerves II-XII grossly intact. No focal neurological deficits.?? Skin:??No rashes or lesions. No edema. Musculoskeletal:??No cyanosis or clubbing. No gross deformities. Assessment/Plan 73-year-old female with h/o recent stroke with residual left hemiparesis (02/2024), ?pAFib on Eliquis, HF, DM2, h/o cholecystectomy 14 to the ED by With complaint of poor oral intake, abdominal pain, nausea, vomiting. ?? Pancreatitis ??(K85.90) Transaminitis ??(R74.01) Epigastric abdominal tenderness, nausea, vomiting, elevated lipase 1155-ruled in for acute pancreatitis History of cholecystectomy,??no alcohol for the past 1 year,??lipid level??WNL.?? Etiology is idiopathic vs medication induced. Daughter reports only new medication is trazodone. Surgery consulted- no plans for surgery Plan: Supportive management with IV fluids, clear liquid diet, zofran, pain management Pain management: PRN Dilaudid Hold Statins, trazodone Close monitoring of vitals, labs. Monitoring for complications Slow gradual advancement of dive 48-72 hours. ?? Stercoral colitis ??(K52.89) Constipation ??(K59.00) CT: Mild rectal fecal impaction with associated stercoral colitis. s/p disimpaction in ED Plan: Bowel regimen: Tap water enema, Miralax bid, docusate/senna bid encourage OOB to chair PT eval ? Starvation ketoacidosis ??(T73.0XXA) Nausea & vomiting ??(R11.2) Hyponatremia ??(E87.1) Poor oral intake IV fluid as above thiamine IV encourage PO fluid intake Nutrition consult ?? Acute metabolic encephalopathy ??(G93.41) Probably multifactorial in the setting of above-->improving Delirium prevention stratifies ? CKD stage 4 due to type 2 diabetes mellitus ??(E11.22) Anemia of chronic kidney failure ??(N18.9) Iron panel with low TIBC. No oblivious bleeding. No melena per family BL Hb seems to be 9. On arrival 8.3. Repeat is 7.3 -->repeat labs ordered (dilutional vs erratic) Hold eliquis until GI bleed is ruled out Transfuse to keep Hb >7 Can consider epo ?? Chronic diastolic (congestive) heart failure ??(I50.32) Currently euvolemic Monitor fluid status. Might need PRN lasix for fluid overload ?? CVA, old, ataxia ??(I69.993) Was started on Eliquis after cva. Continue PT eval ?? Urinary retention (R33.9):?? Generalized weakness Padilla catheter placed on 05/02/24 after multiple episodes of urinary retention. Trial of padilla catheter removal after more mobile. PT eval ?? Type 2 diabetes mellitus with diabetic nephropathy, with long-term current use of insulin (E11.21):?? scale coverage ?? Hyperlipidemia ??(E78.5) Hypertension ??(I10) Continue??coreg Hold amlodipine-->resume if BP trending up ?? DVT ppx: compression boot Full code Clear liquid diet ? Discharge Planning:??2-3 days to rehab once clinically improving. ? Histories Allergies Allergies ?(Active and Proposed Allergies Only) penicillins? (Severity: Unknown severity, Onset: Unknown) ? Past Medical History/Problem List Active Problems(1) Obese class I ? Past Surgical History No surgery history documented. ? Social History Alcohol Details:??Use: Past. ??Frequency: 1-2 [...] Details:??Smokeless tobacco use: Never. ??Previous treatment: None. ? Medications Home Medications Acetaminophen (acetaminophen 325 mg oral tablet)?650?Milligram?By Mouth?Every 4 hours?as needed?Temperature Greater than 100.5?Pain , Mild Amlodipine (amLODIPine 5 mg oral tablet)?5?Milligram?By Mouth?Daily apixaban (apixaban Starter Pack 5 mg oral tablet)?5?Milligram?By Mouth?2 times a day Aspirin (Aspirin Tablet)?81?Milligram?By Mouth?Daily Atorvastatin (atorvastatin 40 mg oral tablet)?1?tab(s)?40?Milligram?By Mouth?Daily Carvedilol (carvedilol 12.5 mg oral tablet)?12.5?Milligram?1?tablet?By Mouth?2 times a day Docusate (Docusate Sodium Capsule)?100?Milligram?1?capsule?By Mouth?2 times a day?as needed?Constipation Fenofibrate (fenofibrate 160 mg oral tablet)?1?tab(s)?160?Milligram?By Mouth?Daily Insulin Glargine (Lantus Inj)?0.1?Milliliter?10?unit(s)?Subcutaneous Injection?Daily at bedtime Insulin Lispro (insulin lispro 100 u/ml subcutaneous injection)?2-10 units?Subcutaneous Injection?3 times a day before meals?<< Sliding Scale Comments >>150 - 199 ?? 2 units Call if less than [address]92 - 249 ?? 4 units 250 - 299 ?? 6 units 300 - 349 ?? 8 units 350 - 399 ?? 10 units Call if greater than 400<< Sliding Scale Comments >> Isosorbide Mononitrate (isosorbide mononitrate 30 mg oral tablet, extended release)?1?tab(s)?30?Milligram?By Mouth?Daily in AM Melatonin (melatonin 3 mg oral tablet)?6?Milligram?By Mouth?Every 24 hours Polyethylene Glycol 3350 (MiraLax Powder)?1?pack/packet?17?gram?By Mouth?Daily?as needed?Constipation ? Inpatient Medications Medications (15) Active SCHEDULED: (6) Carvedilol 12.5 mg Tablet (carvedilol 12.5 mg oral tablet) ??12.5 mg, By Mouth, 2 times a day Docusate Sodium 100 mg Capsule (Docusate Sodium Capsule) ??100 mg 1 capsule, By Mouth, 2 times a day Insulin Lispro 100 units/mL Inj (Insulin LISPRO Sliding Scale) ??2-10 units, Subcutaneous Injection, 3 times a day before meals NaCl 0.9% Flush 3ml (NaCL 0.9% Flush) ??3 mL, IV Push, Every 8 hours Senna Tablet ??8.6 mg 1 tablet, By Mouth, 2 times a day Thiamine 100 mg Inj (Thiamine Inj) ??100 mg 1 mL, IV Push Slowly, Daily CONTINUOUS: (1) D5%LR (1000 mL) Cont IV 1,000 mL (D5%/LR 1,000 mL) ??1,000 mL, IV Infusion, 125 mL/hr PRN: (8) Acetaminophen 325 mg Tablet (Acetaminophen Tablet) ??650 mg, By Mouth, Every 4 hours Dextromethorphan-Guaifenesin 20 mg-200 mg/10 mL Liqu UD (Robitussin DM Liquid) ??10 mL, By Mouth, Every 4 hours HYDROmorphone 0.5 mg/0.5 mL Inj Syringe (Dilaudid Inj) ??0.2 mg 0.2 mL, IV Push Slowly, Every 4 hours Melatonin 3 mg Tablet (Melatonin Tablet) ??3 mg, By Mouth, Daily at bedtime NaCl 0.9% Flush 3ml (NaCL 0.9% Flush) ??3 mL, IV Push, Every 8 hours Ondansetron 2mg/mL Inj (2mL Vial) (Ondansetron Inj) ??4 mg, IV Push Slowly, Every 30 minutes Polyethylene Glycol 17 Gm Powder (MiraLax Powder) ??17 Gm 1 pack/packet, By Mouth, 2 times a day Simethicone 80 mg Chewable Tablet (Simethicone Tablet) ??80 mg, Chew, 3 times a day ? Results Recent Labs BLOOD COUNT & DIFF WBC 8.3 k/mm3 ()?? 05/01/2024 22:13 RBC 2.93 m/mm3 (Low)?? 05/01/2024 22:13 Hgb 8.3 Gm/dL (Low)?? 05/01/2024 22:13 Hct 25.8 % (Low)?? 05/01/2024 22:13 MCV 88.1 femtoliters ()?? 05/01/2024 22:13 MCH 28.3 pg ()?? 05/01/2024 22:13 MCHC 32.2 g/dL (Low)?? 05/01/2024 22:13 Platelet Count 271 k/mm3 ()?? 05/01/2024 22:13 RDW-SD 53.7 femtoliters (High)?? 05/01/2024 22:13 MPV 10.6 femtoliters ()?? 05/01/2024 22:13 Nucleated RBC (Automated) 0.0 #/100 WBC'S ()?? 05/01/2024 22:13 Abs. NRBC 0.0 k/mm3 ()?? 05/01/2024 22:13 Abs. Neut 6.0 k/mm3 ()?? 05/01/2024 22:13 Abs. Lymph 0.6 k/mm3 (Low)?? 05/01/2024 22:13 Abs. [place] 1.2 k/mm3 (High)?? 05/01/2024 22:13 Abs. Eo 0.4 k/mm3 ()?? 05/01/2024 22:13 Abs. Baso 0.0 k/mm3 ()?? 05/01/2024 22:13 Neut % 71.8 % ()?? 05/01/2024 22:13 Lymph % 6.8 % (Low)?? 05/01/2024 22:13 [place] % 14.5 % (High)?? 05/01/2024 22:13 Eos % 4.3 % ()?? 05/01/2024 22:13 Baso % 0.0 % ()?? 05/01/2024 22:13 Metamyelocyte % 2.6 % (High)?? 05/01/2024 22:13 RBC Morphology MODERATE ()?? 05/01/2024 22:13 Platelet Estimate ADEQUATE ()?? 05/01/2024 22:13 ?? CHEM GENERAL Sodium 131 mmol/L (Low)?? 05/01/2024 22:13 Potassium 4.7 mmol/L ()?? 05/01/2024 22:13 Chloride 96 mmol/L (Low)?? 05/01/2024 22:13 Bicarbonate Level 17 mmol/L (Low)?? 05/01/2024 22:13 Anion Gap 18 (High)?? 05/01/2024 22:13 Glucose Level 124 mg/dL (High)?? 05/01/2024 22:13 Glucose, POC 199 mg/dL (High)?? 05/02/2024 08:08 Beta Hydroxybutyrate 0.72 mmol/L (High)?? 05/01/2024 22:13 BUN 44 mg/dL (High)?? 05/01/2024 22:13 Creatinine-Blood 2.02 mg/dL (High)?? 05/01/2024 22:13 Estimated GFR Creatinine 26 ML/MIN/1.73 M2 ()?? 05/01/2024 22:13 Calcium 9.6 mg/dL ()?? 05/01/2024 22:13 Protein, Total 6.6 Gm/dL ()?? 05/01/2024 22:13 Albumin 3.9 Gm/dL ()?? 05/01/2024 22:13 AG Ratio 1.4 ()?? 05/01/2024 22:13 Alkaline Phosphatase 284 units/L (High)?? 05/01/2024 22:13 Lipase 1155 units/L (High)?? 05/01/2024 22:13 AST (SGOT) 824 units/L (High)?? 05/01/2024 22:13 ALT (SGPT) 262 units/L (High)?? 05/01/2024 22:13 Bilirubin, Total 0.8 mg/dL ()?? 05/01/2024 22:13 Lactate 0.7 mmol/L ()?? 05/01/2024 22:13 ?? HEME OTHER Hold Blue Top SPECIMEN DISCARDED AFTER 4 HOURS. ()?? 05/01/2024 22:13 ?? LIPID STUDIES Cholesterol 174 mg/dL ()?? 05/01/2024 22:13 Triglycerides 173 mg/dL (High)?? 05/01/2024 22:13 HDL Cholesterol 43 mg/dL ()?? 05/01/2024 22:13 LDL Cholesterol 96 mg/dL ()?? 05/01/2024 22:13 Non HDL Cholesterol 131 mg/dL ()?? 05/01/2024 22:13 ?? UA/URINALYSIS Appear/Color, Urine LIGHT YELLOW ()?? 05/02/2024 00:45 Specific [place], Urine 1.011 ()?? 05/02/2024 00:45 pH, Urine 6.0 ()?? 05/02/2024 00:45 Albumin, Urine 2+ (Abnormal)?? 05/02/2024 00:45 Glucose, Urine 4+ (Abnormal)?? 05/02/2024 00:45 Ketones, Urine NEGATIVE ()?? 05/02/2024 00:45 Bilirubin, Urine NEGATIVE ()?? 05/02/2024 00:45 Hemoglobin, Urine NEGATIVE ()?? 05/02/2024 00:45 Nitrite, Urine NEGATIVE ()?? 05/02/2024 00:45 Leukocyte, Urine NEGATIVE ()?? 05/02/2024 00:45 Urobilinogen NORMAL mg/dL ()?? 05/02/2024 00:45 WBC's, Urine <1 /HPF ()?? 05/02/2024 00:45 RBC's, Urine <1 /HPF ()?? 05/02/2024 00:45 ?? URINE OTHER Est Creatinine Clearance 18.57 mL/min ()?? 05/02/2024 04:21 ?? VIROLOGY COVID-19 by RT-PCR NEGATIVE ()?? 05/01/2024 22:07 ? EKG study * Event Display: ECG 12-Lead Authored Date: Please click on pdf link to open report * Event Display: ECG 12-Lead Authored Date: Ventricular Rate: 71 BPM Atrial Rate: 71 BPM P-R Interval: 208 ms QRS Duration: 90 ms Q-T Interval: 406 ms QTC Calculation(Bazett): 441 ms P [place]: 58 degrees R [place]: -21 degrees T [place]: 70 degrees Normal sinus rhythm Normal ECG When compared with ECG of 07-MAR-2024 14:35, No significant change was found Confirmed by NILSON STAPLES ([id number]) on 05/02/2024 2:17:46 PM [place]: NILSON STAPLES [facility] Progress note * Yessica VIEIRA, Jeff R: PERFORM Event Display: [facility] Authored Date: 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 Age:??73 Years?Sex:??Female?:??1950?? Subjective 73-year-old??female seen in follow-up for pancreatitis. No acute events overnight. ??Patient states that her abdominal pain has resolved She was??noted to only take 30% of her clear liquid diet this morning however patient states that it is not because she developed abdominal pain no nausea??but because??she??did not feel like eating??a clear liquid diet and would rather prefer a??more substantial diet. Denies??chest pain and difficulty breathing. Review of Systems Negative apart from mentioned above Objective Measurements?? Height: 153 cm (05/02/24) Weight: 74.2 kg (05/02/24) Dry Weight: 74.2 kg (05/02/24) Body Mass Index:??31.7 kg/m2??Critical (05/02/24) ? Vital Signs?? Temperature: 98.2 DegF (05/03/24 14:00:00) Temperature Route: Oral (05/03/24 14:00:00) Pulse Rate: 65 bpm (05/03/24 14:00:00) Respiratory Rate: 18 br/min (05/03/24 14:00:00) Systolic Blood Pressure:??146 mm Hg??High (05/03/24 14:00:00) Diastolic Blood Pressure: 59 mm Hg (05/03/24 14:00:00) Blood pressure sites: Arm, left (05/03/24 14:00:00) Pulse Pressure: 87 mm Hg (05/03/24 14:00:00) Oxygen Saturation: 97 % (05/03/24 14:00:00) Mode of Delivery (Oxygen): Room air (05/03/24 14:00:00) Early Warning Score: 1 (05/03/24 14:58:33) ? Intake/Output? 05/02 03:20 05/03 07:00 07 07:00 05/01 07:00 04/30 07:00 ?? 05/03 15:15 05/03 15:15 05/03 06:59 05/02 06:59 05/01 06:59 Intake ? 3200 ?0 ? 0145 ?825 ?0 Output ? 4450 ?750 ? 2700 ? 1000 ?0 Net Total ?-1250 ? -750 ? -325 ? -175 ?0 ? Physical Exam Constitutional: Appears comfortable and can answer questions appropriately Head: Normocephalic. ?? Eyes: Pupils are equal, round and reactive to light. Extraocular muscles intact. No pallor or scleral icterus ?? Ear, Nose and Throat: mucous membranes moist. Ears and nose - no obvious deformities. Trachea midline. ?? Neck: Supple, Full range of motion.No JVD or bruits. Respiratory:??Clear to auscultation. No wheezing or rhonchi.??No use of accessory muscles. No tactile fremitus.?? Cardiovascular:??PMI not visible. S1 S2 regular. No murmurs, rubs or gallops. Gastrointestinal:??Has some tenderness in the epigastrium and left upper quadrant without rebound tenderness or guarding. ??Bowel sounds are hypoactive Genitourinary:??No costovertebral angle tenderness. Extremities: No lower extremity pitting edema. No cyanosis or clubbing. Neurologic:??AAOx2, left upper and lower extremity strength 3/5, right strength 4/5. Appears very deconditioned _ Inpatient Medications Medications (16) Active SCHEDULED: (7) Carvedilol 12.5 mg Tablet (carvedilol 12.5 mg oral tablet) ??12.5 mg, By Mouth, 2 times a day Docusate Sodium 100 mg Capsule (Docusate Sodium Capsule) ??100 mg 1 capsule, By Mouth, 2 times a day Folic Acid 1 mg Tablet (folic acid 1 mg oral tablet) ??1 mg, By Mouth, Daily Insulin Lispro 100 units/mL Inj (Insulin LISPRO Sliding Scale) ??2-10 units, Subcutaneous Injection, 3 times a day before meals NaCl 0.9% Flush 3ml (NaCL 0.9% Flush) ??3 mL, IV Push, Every 8 hours Senna Tablet ??8.6 mg 1 tablet, By Mouth, 2 times a day Thiamine 100 mg Inj (Thiamine Inj) ??100 mg 1 mL, IV Push Slowly, Daily CONTINUOUS: (1) D5%LR (1000 mL) Cont IV 1,000 mL (D5%/LR 1,000 mL) ??1,000 mL, IV Infusion, 125 mL/hr PRN: (8) Acetaminophen 325 mg Tablet (Acetaminophen Tablet) ??650 mg, By Mouth, Every 4 hours Dextromethorphan-Guaifenesin 20 mg-200 mg/10 mL Liqu UD (Robitussin DM Liquid) ??10 mL, By Mouth, Every 4 hours HYDROmorphone 0.5 mg/0.5 mL Inj Syringe (Dilaudid Inj) ??0.2 mg 0.2 mL, IV Push Slowly, Every 4 hours Melatonin 3 mg Tablet (Melatonin Tablet) ??3 mg, By Mouth, Daily at bedtime NaCl 0.9% Flush 3ml (NaCL 0.9% Flush) ??3 mL, IV Push, Every 8 hours Ondansetron 2mg/mL Inj (2mL Vial) (Ondansetron Inj) ??4 mg, IV Push Slowly, Every 30 minutes Polyethylene Glycol 17 Gm Powder (MiraLax Powder) ??17 Gm 1 pack/packet, By Mouth, 2 times a day Simethicone 80 mg Chewable Tablet (Simethicone Tablet) ??80 mg, Chew, 3 times a day ? Results ? LFT Alkaline Phosphatase:??184 units/L??High (02:23) ALT (SGPT):??146 units/L??High (02:23) AST (SGOT):??176 units/L??High (02:23) Bilirubin, Direct: 0.2 mg/dL (02:23) Bilirubin, Indirect: 0 mg/dL (02:23) Bilirubin, Total: 0.2 mg/dL (02:23) ?? Microbiology ?? Blood Culture 2 Results?? Completed?? Source: Blood Body Site: ?? Collected Dt/Tm: 05/02/2024 01:37 Last Updated Dt/Tm: 05/03/2024 08:10 ?? Blood Culture Result?? Completed?? Source: Blood Body Site: ?? Collected Dt/Tm: 05/02/2024 01:03 Last Updated Dt/Tm: 05/03/2024 08:10 ?? Blood Culture?? Completed?? Source: Blood Body Site: ?? Collected Dt/Tm: 05/01/2024 23:29 Last Updated Dt/Tm: 05/03/2024 08:09 ?? Blood Culture #2?? Completed?? Source: Blood Body Site: ?? Collected Dt/Tm: 05/01/2024 23:29 Last Updated Dt/Tm: 05/03/2024 08:09 ?? COVID-19 (Novel Coronavirus), Rapid PCR?? Completed?? Source: Nasal Body Site: Nose Collected Dt/Tm: 05/01/2024 22:58 Last Updated Dt/Tm: 05/02/2024 00:05 ? Uric/LDH?? No qualifying data available. ? Assessment/Plan 73-year-old female with h/o recent stroke with residual left hemiparesis (02/2024), ?pAFib on Eliquis, HF, DM2, h/o cholecystectomy 14 to the ED by With complaint of poor oral intake, abdominal pain, nausea, vomiting. ?? Pancreatitis ??(K85.90) Transaminitis ??(R74.01) Epigastric abdominal tenderness, nausea, vomiting, elevated lipase 1155-ruled in for acute pancreatitis??although there is no CT evidence of pancreatitis History of cholecystectomy,??no alcohol for the past 1 year,??lipid level??WNL.?? Etiology is idiopathic vs medication induced. Daughter reports only new medication is trazodone. Surgery consulted- no plans for surgery Has been started on IV fluids. ??Diet has been now advanced to??low- fat??with??good tolerance. ??Pain is minimal. ??As needed Zofran Hold Statins, trazodone If her oral intake improves within the next 24 hours can discontinue IV fluids ? Stercoral colitis ??(K52.89) Constipation ??(K59.00) CT:??Mild rectal fecal impaction with associated stercoral colitis. s/p disimpaction in ED Continue with aggressive bowel regimen ? Starvation ketoacidosis ??(T73.0XXA) Nausea & vomiting ??(R11.2) Hyponatremia ??(E87.1) Poor oral intake IV fluid as above thiamine IV P.o. intake has improved, diet advanced to a low-fat ?? Acute metabolic encephalopathy ??(G93.41) Secondary to acute illness She does have some baseline cognitive impairment after the stroke Now appears to be at baseline Generalized delirium precautions ? CKD stage 4 due to type 2 diabetes mellitus ??(E11.22) Anemia of chronic kidney failure ??(N18.9) Iron panel with low TIBC. No oblivious bleeding. No melena per family Baseline hemoglobin??around 9 It has been fluctuant Most likely??acute??bone marrow suppression from??acute illness. May need to consider??erythropoietin as outpatient Hold eliquis for now ?? Chronic diastolic (congestive) heart failure ??(I50.32) Patient does not appear to be in??heart failure exacerbation Is tolerating IV fluids well May need to consider diuretics if there is a change in??respiratory status ?? CVA, old, ataxia ??(I69.993) Holding Eliquis??due to anemia ?? Urinary retention (R33.9):?? Generalized weakness Padilla catheter placed on 05/02/24 after multiple episodes of urinary retention. This is secondary to her immobilization Patient appears to be mostly bedbound, will need to keep the Padilla in place until her??mobilizationimproves ?? Type 2 diabetes mellitus with diabetic nephropathy, with long-term current use of insulin (E11.21):?? scale coverage ?? Hyperlipidemia ??(E78.5) Hypertension ??(I10) Continue??coreg Amlodipine was held due to soft blood pressure can??restart now ?? DVT ppx: compression boot Full code Low-fat diet ?? Had a physical therapy evaluation and the recommendation is short-term rehab ?? Anticipate discharge to rehab within the next 24 to 48 hours ? 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 Age: 73 years Sex: Female : 1950 Associated Diagnoses: None Author: Elliot BUSBY, Gabriella Peacock Findings Problem Related to Alteration in Gastrointestinal : Alteration in Gastrointestinal Func/new 05/03/2024 3:00 EDT Alteration in GI status Related to Constipation, Other: nausea/vomiting Goals & Outcomes, Gastrointestinal Establish a regular pattern of elimination for pt, Nutritional intake is adequate for metabolic needs, Pt will achieve normal/improved fluid balance, Pt will have a bowel movement prior to discharge, Pt will maintain adequate GI function appropriate for pt, Ptwill maintain normal elimination patterns, Pt will resume/maintain adequate hemodynamic status, Pt w ill tolerate age appropriate diet prior to discharge Interventions, Gastrointestinal Assess/monitor abdomen for distention, tenderness, Assess/monitor abdominal girth & bowel function, Assess/monitor bowel pattern, bowel sounds, flatus, Assess/monitor number of bowel movements, Assess/monitor color, quantity, quality, consistency of stoo, Assess/monitor pt for nausea, vomiting, Assess/monitor effects of re-hydration BH Goals/Interventions, Gastrointestinal Yes Gastrointestinal, Problem Start 05/02/2024 4:32 Reviewed plan with, Gastrointestinal Patient Patient Progression, Gastrointestinal Pt progressing according to plan . Nursing Data Vital Signs : VITAL SIGNS SECTION 05/02/2024 19:00 EDT Temperature 98.2 DegF Temperature Route Oral Pulse Rate 59 bpm Respiratory Rate 17 br/min Systolic Blood Pressure 115 mm Hg Diastolic Blood Pressure 63 mm Hg Blood pressure sites Arm, right Pulse Pressure 52 mm Hg Oxygen Saturation 96 % Mode of Delivery (Oxygen) Room air . Evaluation Received pt. on RA, with ongoing D5LR 1L running at 125 ml/hr, with AOX4 and able to make needs known, L sided weakness, on RA, denies CP or SOB. Padilla cath patent, draining clear, yellow urine. No acute events overnight. Kept on bedrest . Kept comfortable, call king within reach, hourly rounds forsafety.. * Ishmael BUSBY, Glenn: VERIFY, PERFORM, SIGN Event Display: Progress Note Hospital Authored Date: [id number] 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 Age: 73 years Sex: Female : 1950 Associated Diagnoses: None Author: Ishmael BUSBY, Glenn Findings Narrative/Incidental Pt had urinary retention of 1L requiring padilla. Constipation, treated with bowel management meds. Great response to tap water enema with large soft brown BM. No evidence of melena or nayely blood in stool (HGB dropped to 7.3 today). Pt on RA. Minimal abdominal pain, usually after meals. No nausea. Daughter updated at bedside.. Consult note * Artie VIEIRA, Saniya C: PERFORM, MODIFY, MODIFY Event Display: Consultation Note Authored Date: Patient: ??NEISHA 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 Age:??73 Years?Sex:??Female?:??1950?? Chief Complaint Consulting Provider: ANGEL Anton[facility]??Surgeon: Vonda Masters M.D. Reason for Consult: Abdominal Pain History of Present Illness Ms. Driver is a 73yo female with hx of A fib on Eliquis, CHF, T2DM, hysterectomy, cholecystectomy, recent ischemic HELENA stroke (2023) with residual left hemiparesis, who is brought to the ED by her daughter due to abdominal pain, constipation, nausea/ vomiting for 3 days. Pt is not entirely clear regarding hx,??and??daughter was not present at bedside during my evaluation for further information. Therefore,??majority of hx was obtained via chart check.??Labs are pertinent for Hgb 8.3,??BUN/ Cr 44 & 2.02, Alk phos 284, lipase 1155,??AST 824 &??ALT 262. CT was obtained and pertinent for absent GB, dilated common bile duct to 1.5cm, and pancreatic atrophy. RUQ UQ was obtained and isnon revealing for biliary etiology.??She tells me that her abdominal pain is resolved at this time.She??denies any chest pain, shortness of breath, or lightheadedness. Remained hemodynamically stable??throughout my evaluation.? Review of Systems A comprehensive review of system was completed, and is either negative or as indicated above.?? Physical Exam Vitals & Measurements T:??97.9?F?? HR:??61??(Peripheral)?? RR:??16?? BP:??116/66?? SpO2:??98%?? HT:??153??cm?? WT:??74.2??kg?? BMI:??31.7?? Constitutional: Alert, in no distress. Mental Status: Oriented to person, place and time. Head: Normocephalic. Eyes: Extraocular muscles intact. Ear, Nose and Throat: Oropharynx clear, mucous membranes moist. Trachea midline. Neck: Supple, Full range of motion. Respiratory: Clear to auscultation. No wheezing, rales or rhonchi. Cardiovascular: RRR. Gastrointestinal: Abdomen soft, non-tender, non-distended. Genitourinary: No costovertebral angle tenderness. Neurologic: Residual left hemiparesis. Skin: No rashes or lesions. No petechiae or purpura.?? Musculoskeletal: No cyanosis or clubbing. No gross deformities. Normal range of motion. Assessment/Plan Ms. Driver is a 73yo female with??abdominal pain, found to have acute pancreatitis, for which general surgery was consulted.??On my evaluation, she is resting comfortably in bed, and??in no??acute distress.??No acute surgical intervention at this time. Pt does not have a gallbladder, and therefore does not require any definitive surgical management from our standpoint. ?? We recommend medicine admit for management with fluid resuscitation,??pain control,??and furtherevaluation of etiology of pancreatitis, either alcoholic, hyperlipidemia, or medication??induced. Will defer to medicine for further management, but please reach out to us if you have any questions or require any additional assistance. ? Case discussed with Dr. Masters ACS [address] Problem List/Past Medical History Ongoing Obese class I Procedure/Surgical History No qualifying data available. Home Medications Acetaminophen: 650 mg, By Mouth, Every 4 hours, PRN (Pain , Mild), Temperature Greater than 100.5 Amlodipine: 5 mg, By Mouth, Daily apixaban: 5 mg, By Mouth, 2 times a day Aspirin: 81 mg, By Mouth, Daily Atorvastatin: 40 mg = 1 tablet, By Mouth, Daily Carvedilol: 12.5 mg = 1 tablet, By Mouth, 2 times a day Cephalexin: 500 mg, By Mouth, Every 12 hours Docusate: 100 mg = 1 capsule, By Mouth, 2 times a day, PRN (Constipation) Fenofibrate: 160 mg = 1 tablet, By Mouth, Daily Insulin Glargine: 10 units = 0.1 mL, Subcutaneous Injection, Daily at bedtime Insulin Lispro: 2-10 units, Subcutaneous Injection, 3 times a day before meals, << Sliding Scale Comments >>150 - 199 ?? 2 units Call if less than [id number] - 249 ?? 4 units 250 - 299 ?? 6 units 300 - 349 ?? 8 units 350 - 399 ?? 10 units Call if greater than 400<< Sliding Scale Comments >> Isosorbide Mononitrate: 30 mg = 1 tablet, By Mouth, Daily in AM Melatonin: 6 mg, By Mouth, Every 24 hours Polyethylene Glycol 3350: 17 Gm = 1 pack/packet, By Mouth, Daily, PRN (Constipation) Allergies penicillins Social History Alcohol Use: Past. Frequency: 1-2 times per year. Type: Beer. Alcohol use in household: No. Date Last Used:2022. Employment/School Status: Retired. Home/Environment Living situation: Home with assistance. Lives with: Children. Marital Status of Patient if Patient Independent Adult: . Glucose monitoring, Walker/Cane Home equipment:. Feels unsafe at home: No.Safe place to go: Yes. Family/Friends available for support: Yes. Nutrition/Health Diet: Diabetic. Sleeping concerns: Yes. Feels highly stressed: Yes. Tobacco Smokeless tobacco use: Never. Previous treatment: None. Family History No family history recorded. Lab Results Labs Last 24 Hours BLOOD COUNT & DIFF ? Event Name?? Event Result?? Date/Time?? WBC 8.3 k/mm3 05/01/24 22:13:00 RBC 2.93 m/mm3??Low 05/01/24 22:13:00 Hgb 8.3 Gm/dL??Low 05/01/24 22:13:00 Hct 25.8 %??Low 05/01/24 22:13:00 MCV 88.1 femtoliters 05/01/24 22:13:00 MCH 28.3 pg 05/01/24 22:13:00 MCHC 32.2 g/dL??Low 05/01/24 22:13:00 Platelet Count 271 k/mm3 05/01/24 22:13:00 MPV 10.6 femtoliters 05/01/24 22:13:00 Nucleated RBC (Automated) 0 #/100 WBC'S 05/01/24 22:13:00 ? CHEM GENERAL ? Event Name?? Event Result?? Date/Time?? Sodium 131 mmol/L??Low 05/01/24 22:13:00 Chloride 96 mmol/L??Low 05/01/24 22:13:00 Bicarbonate Level 17 mmol/L??Low 05/01/24 22:13:00 Anion Gap 18??High 05/01/24 22:13:00 Glucose Level 124 mg/dL??High 05/01/24 22:13:00 BUN 44 mg/dL??High 05/01/24 22:13:00 Creatinine-Blood 2.02 mg/dL??High 05/01/24 22:13:00 Alkaline Phosphatase 284 units/L??High 05/01/24 22:13:00 Lipase 1155 units/L??High 05/01/24 22:13:00 AST (SGOT) 824 units/L??High 05/01/24 22:13:00 ALT (SGPT) 262 units/L??High 05/01/24 22:13:00 Bilirubin, Total 0.8 mg/dL 05/01/24 22:13:00 ? Note * Kellen Cool RN: PERFORM Event Display: Discharge/Transfer Note Hospital Authored Date: [id number] Nursing Discharge Note Entered On: 05/04/2024 11:34 EDT Performed On: 05/04/2024 11:33 EDT by Kellen Cool RN Nursing Discharge Note 2 Discharge Time : 05/04/2024 13:32 EDT Kellen Cool RN - 05/04/2024 18:13 EDT Discharge Level of Care at Discharge : snf facility Discharge Nursing Homes/Rehab Facilities : [facility] Patient Left Unit Via : Ambulance Patient Accompanied Off Unit with : Ambulance/Chair Van Personnel Handover Given to Transport Personnel : Yes DC Instructions Provided & Signed by Pt : No Patient Understands D/C Instructions : Yes Patient Instructions Discharge Signed : No Did Pt have Specialty Bed or Wound Vac : No Silvina BUSBY, Kellen - 05/04/2024 11:33 EDT * Yessica VIEIRA, Jeff Jamil: PERFORM Event Display: Discharge/Transfer Note Hospital Authored Date: [id number] 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 Age:??73 Years?Sex:??Female?:??1950?? Patient Information Discharge Location: Primary Care Physician: Paul Kwan MD Admit Date/Time: 05/02/24 03:20 Discharge Disposition Discharge Disposition: Alf Facility/Rehab Discharge Diagnosis Pancreatitis (K85.90) Transaminitis (R74.01) Urinary retention (R33.9) Colitis (K52.9) Hyponatremia (E87.1) Constipation (K59.00) Stercoral colitis (K52.89) Nausea & vomiting (R11.2) Starvation ketoacidosis (T73.0XXA) CVA, old, ataxia (I69.993) CKD stage 4 due to type 2 diabetes mellitus (E11.22) Type 2 diabetes mellitus with diabetic nephropathy, with long-term current use of insulin (E11.21) Acute metabolic encephalopathy (G93.41) Chronic diastolic (congestive) heart failure (I50.32) Hypertension (I10) Hyperlipidemia (E78.5) Anemia of chronic kidney failure (N18.9) _ Discharge Medications Acetaminophen (acetaminophen 325 mg oral tablet)?650?Milligram?By Mouth?Every 4 hours?as needed?Temperature Greater than 100.5?Pain , Mild Amlodipine (amLODIPine 5 mg oral tablet)?5?Milligram?By Mouth?Daily apixaban (apixaban Starter Pack 5 mg oral tablet)?5?Milligram?By Mouth?2 times a day Aspirin (Aspirin Tablet)?81?Milligram?By Mouth?Daily Atorvastatin (atorvastatin 40 mg oral tablet)?1?tab(s)?40?Milligram?By Mouth?Daily Carvedilol (carvedilol 12.5 mg oral tablet)?12.5?Milligram?1?tablet?By Mouth?2 times a day Docusate (Docusate Sodium Capsule)?100?Milligram?1?capsule?By Mouth?2 times a day?as needed?Constipation Fenofibrate (fenofibrate 160 mg oral tablet)?1?tab(s)?160?Milligram?By Mouth?Daily Insulin Glargine (Lantus Inj)?0.1?Milliliter?10?unit(s)?Subcutaneous Injection?Daily at bedtime Insulin Lispro (insulin lispro 100 u/ml subcutaneous injection)?2-10 units?Subcutaneous Injection?3 times a day before meals?<< Sliding Scale Comments >>150 - 199 ?? 2 units Call if less than [id number] - 249 ?? 4 units 250 - 299 ?? 6 units 300 - 349 ?? 8 units 350 - 399 ?? 10 units Call if greater than 400<< Sliding Scale Comments >> Isosorbide Mononitrate (isosorbide mononitrate 30 mg oral tablet, extended release)?1?tab(s)?30?Milligram?By Mouth?Daily in AM Melatonin (melatonin 3 mg oral tablet)?6?Milligram?By Mouth?Every 24 hours Polyethylene Glycol 3350 (MiraLax Powder)?1?pack/packet?17?gram?By Mouth?Daily?as needed?Constipation ?? Medications Started No medication changes Allergies Allergies ?(Active and Proposed Allergies Only) penicillins? (Severity: Unknown severity, Onset: Unknown) ? Hospital Course 73-year-old female with a history of recent stroke with residual left-sided hemiparesis, suspected paroxysmal atrial fibrillation on Eliquis, history of heart failure type 2 diabetes history of cholecystectomy presented to the emergency department with complaint of poor oral intake abdominal pain nausea and vomiting. Admitted for management of suspected acute pancreatitis. ?? Patient was hemodynamically stable on presentation and lab work was pertinent for anemia at baseline, mild hyponatremia, elevated beta hydroxybutyrate, elevated creatinine, elevated lipase and AST ALT. Triglycerides 173. Urinalysis was unremarkable and blood cultures showed no growth after 24 hours. She did have a CT scan of the abdomen pelvis that was done without contrast given her renal impairment and it showed mild rectal fecal impaction with associated stercoral colitis but no definitive evidence of pancreatitis apart from mild atrophy. However given her symptoms and elevated lipase level was started on IV fluids and kept n.p.o. Diet was slowly advanced which she tolerated a low-fat diet. Surgery was consulted to check whether patient would require surgical intervention however giventhat she has already had a cholecystectomy they recommended conservative management. She is now tolerating a low-fat diet, will need to remain on this diet for 2 weeks. As her liver functions have normalized has been restarted on atorvastatin and fenofibrate. ?? Patient was found to be anemic, no bleeding manifestations noted. Iron panel with only low TIBC. Most likely combination of anemia of chronic disease and acute suppression from illness. May benefit from erythropoietin as outpatient. ?? She had urinary retention and needed Padilla catheter placed on 05/02 after multiple episodes of urinary retention. Most likely cause is immobilization. She can have a voiding trial after she is more mobile. ?? Had stercoral colitis and constipation seen on CT scan. Underwent disimpaction in the ED and with rigorous bowel regimen had a bowel movement on 05/03. As needed bowel regimen going forward. ?? She will return to rehab to continue with physical therapy. ?? Objective Measurements?? Height: 153 cm (05/02/24) Weight: 74.2 kg (05/02/24) Dry Weight: 74.2 kg (05/02/24) Body Mass Index:??31.7 kg/m2??Critical (05/02/24) ? Vital Signs?? Temperature: 97.9 DegF (05/04/24 07:00:00) Temperature Route: Oral (05/04/24 07:00:00) Pulse Rate: 56 bpm (05/04/24 08:41:00) Respiratory Rate: 17 br/min (05/04/24 07:00:00) Systolic Blood Pressure:??149 mm Hg??High (05/04/24 08:41:00) Diastolic Blood Pressure: 68 mm Hg (05/04/24 08:41:00) Blood pressure sites: Arm, left (05/04/24 07:00:00) Pulse Pressure: 81 mm Hg (05/04/24 07:00:00) Oxygen Saturation: 100 % (05/04/24 07:00:00) Mode of Delivery (Oxygen): BiPAP (05/04/24 07:00:00) Early Warning Score: 2 (05/04/24 11:09:44) ? . Physical Exam Constitutional: Appears comfortable and can answer questions appropriately Head: Normocephalic. ?? Eyes: Pupils are equal, round and reactive to light. Extraocular muscles intact. No pallor or scleral icterus ?? Ear, Nose and Throat: mucous membranes moist. Ears and nose - no obvious deformities. Trachea midline. ?? Neck: Supple, Full range of motion.No JVD or bruits. Respiratory:??Clear to auscultation. No wheezing or rhonchi.??No use of accessory muscles. No tactile fremitus.?? Cardiovascular:??PMI not visible. S1 S2 regular. No murmurs, rubs or gallops. Gastrointestinal:??Nontender abdomen with no distention. ??Bowel sounds are hypoactive Genitourinary:??No costovertebral angle tenderness. Extremities: No lower extremity pitting edema. No cyanosis or clubbing. Neurologic:??AAOx2, left upper and lower extremity strength 3/5, right strength 4/5. Appears very deconditioned Consultants EGS Pending Results Add On Lab Order ordered on 05/02/2024 Add On Lab Order ordered on 05/02/2024 Follow-Up Appointments Added Follow Up ?Time Frame ?Comments Aquiles VIEIRA, Paul?1 week: call to discuss follow up visit Post Discharge Care Activity: ??Out of bed 3 times a day with assistance ?? Code Status: ??Full Resuscitation ?? Discharge ?05/04/24 11:16:00 EDT Home Health Face to Face ^HomeHealthFTF Results Discharge Labs BACTERIOLOGY Blood Culture Results Preliminary report ()?? 05/02/2024 01:03 Blood Culture Specimen Source BLOOD ()?? 05/02/2024 01:03 Blood Culture Isolate 1 Comment ()?? 05/02/2024 01:03 Blood Cult 2 Results Preliminary report ()?? 05/02/2024 01:37 Blood Culture 2 Specimen Source BLOOD ()?? 05/02/2024 01:37 Blood Culture 2 Isolate 1 Comment ()?? 05/02/2024 01:37 ?? BLOOD COUNT & DIFF WBC 7.3 k/mm3 ()?? 05/04/2024 01:44 RBC 2.54 m/mm3 (Low)?? 05/04/2024 01:44 Hgb 7.3 Gm/dL (Low)?? 05/04/2024 01:44 Hct 22.6 % (Low)?? 05/04/2024 01:44 MCV 89.0 femtoliters ()?? 05/04/2024 01:44 MCH 28.7 pg ()?? 05/04/2024 01:44 MCHC 32.3 g/dL (Low)?? 05/04/2024 01:44 Platelet Count 234 k/mm3 ()?? 05/04/2024 01:44 RDW-SD 55.6 femtoliters (High)?? 05/04/2024 01:44 MPV 10.8 femtoliters ()?? 05/04/2024 01:44 Nucleated RBC (Automated) 0.0 #/100 WBC'S ()?? 05/04/2024 01:44 Abs. NRBC 0.0 k/mm3 ()?? 05/04/2024 01:44 Abs. Neut 6.0 k/mm3 ()?? 05/01/2024 22:13 Abs. Lymph 0.6 k/mm3 (Low)?? 05/01/2024 22:13 Abs. Mingo 1.2 k/mm3 (High)?? 05/01/2024 22:13 Abs. Eo 0.4 k/mm3 ()?? 05/01/2024 22:13 Abs. Baso 0.0 k/mm3 ()?? 05/01/2024 22:13 Neut % 71.8 % ()?? 05/01/2024 22:13 Lymph % 6.8 % (Low)?? 05/01/2024 22:13 Mingo % 14.5 % (High)?? 05/01/2024 22:13 Eos % 4.3 % ()?? 05/01/2024 22:13 Baso % 0.0 % ()?? 05/01/2024 22:13 Metamyelocyte % 2.6 % (High)?? 05/01/2024 22:13 RBC Morphology MODERATE ()?? 05/01/2024 22:13 Platelet Estimate ADEQUATE ()?? 05/01/2024 22:13 Retic Count 3.1 % (High)?? 05/02/2024 10:51 Retic Count Corrected 1.6 % ()?? 05/02/2024 10:51 Retic Production Index 0.8 % (Low)?? 05/02/2024 10:51 ?? CHEM GENERAL Sodium 137 mmol/L ()?? 05/04/2024 01:44 Potassium 4.5 mmol/L ()?? 05/04/2024 01:44 Chloride 105 mmol/L ()?? 05/04/2024 01:44 Bicarbonate Level 22 mmol/L ()?? 05/04/2024 01:44 Anion Gap 10 ()?? 05/04/2024 01:44 Glucose Level 191 mg/dL (High)?? 05/04/2024 01:44 Glucose, POC 198 mg/dL (High)?? 05/04/2024 08:03 Beta Hydroxybutyrate 0.72 mmol/L (High)?? 05/01/2024 22:13 BUN 24 mg/dL (High)?? 05/04/2024 01:44 Creatinine-Blood 1.55 mg/dL (High)?? 05/04/2024 01:44 Estimated GFR Creatinine 36 ML/MIN/1.73 M2 ()?? 05/04/2024 01:44 Calcium 8.9 mg/dL ()?? 05/04/2024 01:44 Phosphorus 2.8 mg/dL ()?? 05/03/2024 02:23 Magnesium 3.0 mg/dL (High)?? 05/02/2024 10:51 Protein, Total 5.1 Gm/dL (Low)?? 05/04/2024 01:44 Albumin 3.1 Gm/dL (Low)?? 05/04/2024 01:44 AG Ratio 1.4 ()?? 05/01/2024 22:13 Alkaline Phosphatase 163 units/L (High)?? 05/04/2024 01:44 Lipase 1155 units/L (High)?? 05/01/2024 22:13 AST (SGOT) 73 units/L (High)?? 05/04/2024 01:44 ALT (SGPT) 99 units/L (High)?? 05/04/2024 01:44 Bilirubin, Total 0.2 mg/dL ()?? 05/04/2024 01:44 Bilirubin, Direct <0.2 mg/dL ()?? 05/04/2024 01:44 Bilirubin, Indirect Direct bilirubin is less than the measureable limit. Therefore, indirect mg/dL ()?? 05/04/2024 01:44 Vitamin B12 Level 1819 pg/mL (High)?? 05/02/2024 10:51 Folic Acid Level 8.6 ng/mL ()?? 05/02/2024 10:51 Lactate 0.7 mmol/L ()?? 05/01/2024 22:13 Iron Level 53 mcg/dL ()?? 05/02/2024 10:51 Iron Binding Capacity, Unsaturated 98 mcg/dL (Low)?? 05/02/2024 10:51 Iron Binding Capacity, Estimated Total 151 mcg/dL ()?? 05/02/2024 10:51 % Iron Saturation 35 % ()?? 05/02/2024 10:51 Ferritin Level 908 ng/mL (High)?? 05/02/2024 10:51 ?? HEME OTHER Hold Blue Top SPECIMEN DISCARDED AFTER 4 HOURS. ()?? 05/01/2024 22:13 ? LIPID STUDIES Cholesterol 174 mg/dL ()?? 05/01/2024 22:13 Triglycerides 173 mg/dL (High)?? 05/01/2024 22:13 HDL Cholesterol 43 mg/dL ()?? 05/01/2024 22:13 LDL Cholesterol 96 mg/dL ()?? 05/01/2024 22:13 Non HDL Cholesterol 131 mg/dL ()?? 05/01/2024 22:13 ? UA/URINALYSIS Appear/Color, Urine LIGHT YELLOW ()?? 05/02/2024 00:45 Specific [place], Urine 1.011 ()?? 05/02/2024 00:45 pH, Urine 6.0 ()?? 05/02/2024 00:45 Albumin, Urine 2+ (Abnormal)?? 05/02/2024 00:45 Glucose, Urine 4+ (Abnormal)?? 05/02/2024 00:45 Ketones, Urine NEGATIVE ()?? 05/02/2024 00:45 Bilirubin, Urine NEGATIVE ()?? 05/02/2024 00:45 Hemoglobin, Urine NEGATIVE ()?? 05/02/2024 00:45 Nitrite, Urine NEGATIVE ()?? 05/02/2024 00:45 Leukocyte, Urine NEGATIVE ()?? 05/02/2024 00:45 Urobilinogen NORMAL mg/dL ()?? 05/02/2024 00:45 WBC's, Urine <1 /HPF ()?? 05/02/2024 00:45 RBC's, Urine <1 /HPF ()?? 05/02/2024 00:45 Hold Urine Culture Testing available 48 hours from time of collection. ()?? 05/02/2024 00:45 ?? URINE OTHER Est Creatinine Clearance 24.20 mL/min ()?? 05/04/2024 03:00 ? VIROLOGY COVID-19 by RT-PCR NEGATIVE ()?? 05/01/2024 22:07 ? 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 Age: 73 years Sex: Female : 1950 Associated Diagnoses: None Author: Simona Navarro RN Discharge Plan Case Management Discharge Plan : Case Management Discharge Plan Data 05/04/2024 10:54 EDT Discharge Level of Care at Discharge snf facility Discharge Nursing Homes/Rehab Facilities [facility] Discharge Transportation Arranged [facility] [address] [place] [phone] Discharge Arranged Transport Date/Time 05/04/2024 12:00 Mode of Transportation Arranged Ambulance Agency Log Marker #1 admissions Service Categories #1 Occupational Therapy, Physical Therapy, Alf, Angiographer 05/04/2024 10:48 EDT Discharge Nursing Homes/Rehab Facilities [facility] * Silvina BUSBY Kellen: PERFORM Event Display: Patient Education/Instruction Authored Date: Inpatient Adult Discharge Instructions. [address] [address] Name: RUDY DRIVER : 1950?? Visit: 05/02/2024 03:20?? Current Date: 05/04/2024 11:38 ?? Account: [id number]?? Inpatient Adult Discharge Instructions We would like [...] and their families. Surveys are administered by [employer] ?? If further treatment with your primary care physician or another doctor is recommended, it is important for you to keep the appointment. Call your primary care physician or return to the Emergency Department immediately if your condition worsens, fails to improve, or new symptoms develop. If you need to find a doctor, you can call [facility] Link for a referral at [phone] or toll free at [phone] ([phone]) or log in to [email or web address].. ?? [facility], in keeping with [facility] guidance, no longer requires face masks [...] a health care [place] of your choosing. [employer] is a website that allows you to securely view your medical information including your hospital discharge summary, office visit summaries, medications and follow-up visits. You can also request appointments, renew medications, and request access to your medical information using a health care [place] of your choosing, or just ask a question. You can enroll at [email or web address] or register during your next office visit. You have been discharged from [facility], Patient Care Unit: S3??. If you have any questions regarding these instructions, including results of studies pending, afteryou leave, please call us and we will be happy to assist you 20/05. [facility] Your Care Team Attending Physician Jeff Juan MD?? Consulting Providers Jeff Juan MD?? Discharging Providers Jeff Juan MD [facility] 1 day. They stated she is impacted, vomiting forone hour with fecal like matter emisis . AxOx4. hx diabetes II, stroke, and hypertension?? 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 You may have had other tests and procedures not included in this list. Please discuss all test results with your provider. Albumin Level Alk Phos ALT AST B12 Vitamin Level Basic Metabolic Panel BETA HYDROXYBUTYRATE Bilirubin Total + Direct Blood Culture Blood Culture #2 Blood Culture 2 Results Blood Culture Result BUN Calcium Level CBC CBC w/ Differential Comprehensive Metabolic Panel COVID-19 (Novel Coronavirus), Rapid PCR Creatinine Electrolytes Ferritin Folic Acid Level Glucose Level GLUCOSE POC Hgb + Hct Hold Blue Top Tube Iron + Iron Binding Capacity Lactic Acid Level Lipase LIPID PANEL Liver Function Panel Mg Level Phosphorus Level Reticulocyte Ct Urinalysis w/hold for Urine Culture CT Abdomen and Pelvis W/O Contrast Portable Chest US RUQ Add On Lab Order?? Primary Care Provider Paul Kwan MD? Advance Directive Health Care Proxy on File Yes - Health Care Proxy Discharge Vitals Temperature: 98.5 DegF Height: 153 cm Pulse Rate: 58 bpm Weight: 74.2 kg Respiratory Rate: 18 br/min Body Mass Index:??31.7 kg/m2??Critical Systolic Blood Pressure:??166 mm Hg??High Body surface area: 1.78 Diastolic Blood Pressure: 64 mm Hg ?? Oxygen Saturation: 98 % ?? Studies Pending All studies ordered during this hospital stay have been completed unless listed below. Please discuss all pending results with your provider listed above in these instructions. ?? Add On Lab Order?? What to do next Instructions From Your Doctor ?? Orders??:Out of bed 3 times a day with assistance Status: ??Full Resuscitation? 05/04/24 11:16:00 EDT?? You Need to Schedule the Following Appointments Follow Up with??Paul Kwan MD When:??Within 1 week: call to discuss follow up visit Where: [address] [facility] [place] [address]- Discharge Medications RUDY DRIVER :1950 Visit Date:05/02/2024 Medications: Please continue your medications until treatment is completed or stopped by your provider. Medications not listed below should be discontinued. Discuss any questions related to medications with your provider. What How Much When Instructions Next Dose Unchanged Acetaminophen (acetaminophen 325 mg oral tablet) 650 Milligram Oral Every 4 hours as needed for Pain , Mild Temperature Greater than 100.5 ?? as needed Unchanged Amlodipine (amLODIPine 5 mg oral tablet) 5 Milligram Oral Daily 05/05 Unchanged apixaban (apixaban Starter Pack 5 mg oral tablet) 5 Milligram Oral Twice a day 05/04 Unchanged Aspirin (Aspirin Tablet) 81 Milligram Oral Daily 05/05 Unchanged Atorvastatin (atorvastatin 40 mg oral tablet) 1 tab(s) Oral Daily 05/05 Unchanged Carvedilol (carvedilol 12.5 mg oral tablet) 1 tab(s) Oral Twice a day 05/04 Unchanged Docusate (Docusate Sodium Capsule) 100 Milligram Oral Twice a day as needed for Constipation as needed Unchanged Fenofibrate (fenofibrate 160 mg oral tablet) 1 tab(s) Oral Daily 05/05 Unchanged Insulin Glargine (Lantus Inj) 10 unit(s) Subcutaneous Injection Daily at Bedtime 05/04 Unchanged Insulin Lispro (insulin lispro 100 u/ ml [...] 400 << Sliding Scale Comments >> ?? see instruction Unchanged Isosorbide Mononitrate (isosorbide mononitrate 30 mg oral tablet, extended release) 1 tab(s) Oral Daily in the morning 05/05 Unchanged Melatonin (melatonin 3 mg oral tablet) 6 Milligram Oral Every 24 hours 05/04 Unchanged Polyethylene Glycol 3350 (MiraLax Powder) 17 gram Oral Daily as needed for Constipation as needed ?? What How Much When Comments Stop Taking Cephalexin (cephalexin monohydrate 500 mg oral capsule) 500 Milligram Oral Every 12 hours Prescription Given During Visit No new medications prescribed at time of discharge.?? Laboratory Results Below is a partial list of the most recent Laboratory test results done prior to this discharge. You may have had other tests and procedures not included in this list. Please discuss all test resultswith your provider. Est Creatinine Clearance - 24.20 mL/min (05/04/2024) Albumin Level (05/02/2024) ???Albumin - 3.4 Gm/dL Alk Phos (05/03/2024) ???Alkaline Phosphatase - 184 units/L ALT (05/03/2024) ???ALT (SGPT) - 146 units/L AST (05/03/2024) ???AST (SGOT) - 176 units/L B12 Vitamin Level (05/02/2024) ???Vitamin B12 Level - 1819 pg/mL Basic Metabolic Panel (05/04/2024) ???Sodium - 137 mmol/L???Potassium - 4.5 mmol/L???Chloride - 105 mmol/L???Bicarbonate Level - 22 mmol/L???Anion Gap - 10???Glucose Level - 191 mg/dL???BUN - 24 mg/dL???Creatinine-Blood - 1.55 mg/dL???Estimated GFR Creatinine - 36 ML/MIN/1.73 M2???Calcium - 8.9 mg/dL BETA HYDROXYBUTYRATE (05/01/2024) ???Beta Hydroxybutyrate - 0.72 mmol/L Bilirubin Total + Direct (05/03/2024) ???Bilirubin, Total - 0.2 mg/dL???Bilirubin, Direct - 0.2 mg/dL???Bilirubin, Indirect - 0.0 mg/dL Blood Culture (05/02/2024) ???Blood Culture Results - Preliminary report???Blood Culture Specimen Source - BLOOD Blood Culture #2 (05/02/2024) ???Blood Cult 2 Results - Preliminary report???Blood Culture 2 Specimen Source - BLOOD Blood Culture 2 Results (05/02/2024) ???Blood Culture 2 Isolate 1 - Comment Blood Culture Result (05/02/2024) ???Blood Culture Isolate 1 - Comment BUN (05/03/2024) ???BUN - 28 mg/dL Calcium Level (05/03/2024) ???Calcium - 8.9 mg/dL CBC (05/04/2024) ???WBC - 7.3 k/mm3???RBC - 2.54 m/mm3???Hgb - 7.3 Gm/dL???Hct - 22.6 %???MCV - 89.0 femtoliters???MCH - 28.7 pg???MCHC - 32.3 g/dL???Platelet Count - 234 k/mm3???RDW-SD - 55.6 femtoliters???MPV - 10.8 femtoliters???Nucleated RBC (Automated) - 0.0 #/100 WBC'S???Abs. NRBC - 0.0 k/mm3 CBC w/ Differential (05/01/2024) ???WBC - 8.3 k/mm3???RBC - 2.93 m/mm3???Hgb - 8.3 Gm/dL???Hct - 25.8 %???MCV - 88.1 femtoliters???MCH - 28.3 pg???MCHC - 32.2 g/dL???Platelet Count - 271 k/mm3???RDW-SD - 53.7 femtoliters???MPV - 10.6 femtoliters???Nucleated RBC (Automated) - 0.0 #/100 WBC'S???Abs. NRBC - 0.0 k/mm3???Abs. Neut - 6.0 k/mm3???Abs. Lymph - 0.6 k/mm3???Abs. [place] - 1.2 k/mm3???Abs. Eo - 0.4 k/mm3???Abs. Baso - 0.0 k/mm3???Neut % - 71.8 %???Lymph % - 6.8 %???[place] % - 14.5 %???Eos % - 4.3 %???Baso % - 0.0 %???Metamyelocyte % - 2.6 %???RBC Morphology - MODERATE???Platelet Estimate - ADEQUATE Comprehensive Metabolic Panel (05/01/2024) ???Sodium - 131 mmol/L???Potassium - 4.7 mmol/L???Chloride - 96 mmol/L???Bicarbonate Level - 17 mmol/L???Anion Gap - 18???Glucose Level - 124 mg/dL???BUN - 44 mg/dL???Creatinine-Blood - 2.02 mg/dL???Estimated GFR Creatinine - 26 ML/MIN/1.73 M2???Calcium - 9.6 mg/dL???Protein, Total - 6.6 Gm/dL???Albumin - 3.9 Gm/dL???AG Ratio - 1.4???Alkaline Phosphatase - 284 units/L???AST (SGOT) - 824 units/L???ALT (SGPT) - 262 units/L???Bilirubin, Total - 0.8 mg/dL COVID-19 (Novel Coronavirus), Rapid PCR (05/01/2024) ???COVID-19 by RT-PCR - NEGATIVE Creatinine (05/03/2024) ???Creatinine-Blood - 1.64 mg/dL???Estimated GFR Creatinine - 33 ML/MIN/1.73 M2 Electrolytes (05/03/2024) ???Sodium - 134 mmol/L???Potassium - 4.3 mmol/L???Chloride - 104 mmol/L???Bicarbonate Level - 19 mmol/L???Anion Gap - 11 Ferritin (05/02/2024) ???Ferritin Level - 908 ng/mL Folic Acid Level (05/02/2024) ???Folic Acid Level - 8.6 ng/mL Glucose Level (05/03/2024) ???Glucose Level - 193 mg/dL GLUCOSE POC (05/04/2024) ???Glucose, POC - 198 mg/dL Hgb + Hct (05/02/2024) ???Hgb - 8.0 Gm/dL???Hct - 24.9 % Hold Blue Top Tube (05/01/2024) ???Hold Blue Top - SPECIMEN DISCARDED AFTER 4 HOURS. Iron + Iron Binding Capacity (05/02/2024) ???Iron Level - 53 mcg/dL???Iron Binding Capacity, Unsaturated - 98 mcg/dL???Iron Binding Capacity,Estimated Total - 151 mcg/dL???% Iron Saturation - 35 % Lactic Acid Level (05/01/2024) ???Lactate - 0.7 mmol/L Lipase (05/01/2024) ???Lipase - 1155 units/L LIPID PANEL (05/01/2024) ???Cholesterol - 174 mg/dL???Triglycerides - 173 mg/dL???HDL Cholesterol - 43 mg/dL???LDL Cholesterol - 96 mg/dL???Non HDL Cholesterol - 131 mg/dL Liver Function Panel (05/04/2024) ???Protein, Total - 5.1 Gm/dL???Albumin - 3.1 Gm/dL???Alkaline Phosphatase - 163 units/L???AST (SGOT) - 73 units/L? ?ALT (SGPT) - 99 units/L? ?Bilirubin, Total - 0.2 mg/dL? ?Bilirubin, Direct - <0.2 mg/dL???Bilirubin, Indirect - Direct bilirubin is less than the measureable limit. Therefore, indirect Mg Level (05/02/2024) ???Magnesium - 3.0 mg/dL Phosphorus Level (05/03/2024) ???Phosphorus - 2.8 mg/dL Reticulocyte Ct (05/02/2024) ???Retic Count - 3.1 %???Retic Count Corrected - 1.6 %???Retic Production Index - 0.8 % Urinalysis w/hold for Urine Culture (05/02/2024) ???Appear/Color, Urine - LIGHT YELLOW???Specific [place], Urine - 1.011???pH, Urine - 6.0???Albumin, Urine - 2+???Glucose, Urine - 4+???Ketones, Urine - NEGATIVE???Bilirubin, Urine - NEGATIVE???Hemoglobin, Urine - NEGATIVE???Nitrite, Urine - NEGATIVE???Leukocyte, Urine - NEGATIVE???Urobilinogen - NORMAL? ?WBC's, Urine - <1 /HPF? ?RBC's, Urine - <1 /HPF? ?Hold Urine Culture - Testing available 48 hours from time of collection. Allergies (NKA means No Known Allergies) penicillins Problems Active Problems??(1) Obese class I?? Education Materials Below is the list of Educational Leaflet Providered with your Discharge Instructions. Valuables and Belongings I fully understand and agree that [facility] accepts no responsibility for all my personal [...] to send valuables and belongings home. ?? No Valuables/Belongings: No valuables/belongings present Review of Valuable and Belonging List: With patient, With witness Date for Pt to Sign Valuables/Belongings: 05/02/24 04:28:00 ?? Other Discharge Information ? Case Management Discharge Plan?? Discharge Plan?? Discharge Agency Information?? Discharge Level of Care at Discharge: snf facility Agency Log Marker #1: admissions Discharge Transportation Arranged: [facility] [address] [facility] [address] [phone] Service Categories #1: Occupational Therapy, Physical Therapy, Alf, Angiographer Mode of Transportation Arranged: Ambulance ?? Discharge Arranged Transport Date/Time: 05/04/24 12:00:00 ?? Discharge Nursing Homes/Rehab Facilities: [facility] ? Pulmonary Rehab Status?? Pulmonary Rehab Discharge Status?? Respiratory Rate: 18 br/min ? Common Emergency Awareness Tips IS [...] are strongly encouraged to quit. Please call [facility] [employer] Link at [phone] or [phone] or log in to [email or web address] for referrals to smoking cessation programs. ?? 893 Suicide & Crisis Lifeline is available 20/05 if you or someone you know needs to find a reason to keep living. By calling 292 you'll be connected to a skilled, trained counselor at a crisis center in your area. INPATIENT DISCHARGE INSTRUCTIONS SIGNATURE PAGE RUDY DRIVER Location:[facility] Registration Date and Time:05/02/2024 03:20 EDT Primary Care Physician: Aquiles VIEIRA, Paul, Attending Physician: Yessica VIEIRA, Jeff Jamil, I RUDY DRIVER, have received the above patient education materials/instructions and have verbalized understanding. If ambulance or transport services are being used I further acknowledge being given a choice of service. ?? If you need to contact me, please call me at this number: . Patient/Environmental Communications Specialist Name: Patient/Environmental Communications Specialist Signature: Relationship to Patient: Witness Name/Signature: Date: Patient Care team information Care Team Personnel Name: Glenn Quiñones RN Position: S RN Member Role: Primary Care Nurse Name: Pauline Hearn RN Position: S RN Member Role: Primary Care Nurse Name: Horacio Manrique LPN Position: S RN Member Role: Primary Care Nurse Name: Paul Kwan MD Position: S Outreach Member Role: PCP Address: Address: [address] [place] [address] Medicine [place], [place] [address] Name: Lovely Acosta RN Position: S RN Member Role: Primary Care Nurse Name: Rainer Fuentes RN Position: S RN Member Role: Primary Care Nurse Name: Jace Atkins RN Position: S RN Member Role: Primary Care Nurse Name: Lanette Kang RN Position: S RN Member Role: Primary Care Nurse Name: Kellen Cool RN Position: S RN Member Role: Primary Care Nurse Care Team Related Persons Name: JULIANA SANZ Address: home UNK Name: PAUL DRIVER Address: home [address] [place] [id number]
--- OUTSIDE RECORDS SUMMARY | 2024-05-28 13:33 | XMS_ITS | Continuity of Care Document ---
Author Organization [facility] Address [address] [facility], [address], [address] [place] [address]- Care Team Providers Care Parts Room Assistant Name Role Phone Not on Staff, PCP Primary Care Physician Unavail able Encounter [facility] Date(s): 03/17/24 - 04/16/24 [facility] [address], [address] [place] [phone]- Allergies, Adverse Reactions, Alerts Substance Reaction Severity [...] Nurse Name: Not on Staff, PCP Position: [facility] Physician (General Medicine) Member Role: PCP Name: Lovely Acosta RN Position: S RN Member Role: Primary Care Nurse Name: Jace Atkins RN Position: S RN Member Role: Primary Care Nurse Care Team Related Persons Name: JULIANA SANZ Name: PAUL DRIVER Address: [place] [address]
== END 2024-05-28 13:51 | disposition home or self-care (01) ==
PROVIDERS: PCP Nurse Practitioner Primary Care; Visit Provider Internal Medicine Hypertension Specialist
DX: N17.9 Acute kidney failure, unspecified (principal); N18.9 Chronic kidney disease, unspecified
CPT/HCPCS: 99214

== ENCOUNTER 2024-05-29 10:29 | Outpatient (AMB) | payer MEDICARE, SELFPAY ==
[2024-05-29 10:45] VITALS: BP 110/70; PULSE 57
--- NOTE | 2024-05-29 10:45 | A.OFFVIS_ITS ---
Vital Signs 05/29/24 10:45 Height 5 ft BP 110/70 Blood Pressure Location Rt brachial Position Sitting Pulse 57 Intake Visit Reasons: Follow up. Intake Note: Follow-up feeling good Science Professor Required: No Roll Cleaner: Roll Cleaner Present Accompanied by: Daughter Allergies Penicillins [PENICILLINS] Allergy (Unknown, Verified 05/28/24 13:33) Rash lactose Adverse Reaction (Mild, Verified 05/28/24 13:33) Unknown shellfish Allergy (Mild, Uncoded 04/07/24 12:33) Unknown Medication List - Last Reconciled 05/29/24 by Branden Prajapati MD acetaminophen 500 mg PO DAILY PRN amlodipine 5 mg PO DAILY apixaban (Eliquis) 5 mg PO BID atorvastatin 40 mg PO BEDTIME blood sugar diagnostic (FreeStyle Lite Strips) Test four times a day or as directed. blood sugar diagnostic (FreeStyle Lite Strips) three times per day blood-glucose meter (FreeStyle Lite Meter kit) As Directed blood-glucose meter (FreeStyle Lite Meter kit) As directed to test blood sugar 3 times per day carvedilol 12.5 mg PO BID cholecalciferol (vitamin D3) 25 mcg PO DAILY dapagliflozin propanediol (Farxiga) 5 mg PO DAILY gemfibrozil 600 mg PO BID insulin glargine (Lantus Solostar U-100 Insulin) 18 units subcut BEDTIME insulin lispro (Humalog KwikPen (U-100) Insulin) 1 sliding scale dose subcut QIDACHS isosorbide mononitrate ER 30 mg PO DAILY lancets (FreeStyle Lancets) Test four times a day or as directed. lancets (FreeStyle Lancets) Test 3 times per day magnesium hydroxide (Milk of Magnesia) 5 mL PO DAILY PRN melatonin 6 mg PO BEDTIME PRN multivitamin with minerals 1 tab PO DAILY pen needle, diabetic Use four times a day or as directed. tamsulosin (Flomax) 0.8 mg (2 x 0.4 mg) PO BEDTIME trazodone 25 mg PO BEDTIME PRN HPI Comments Details: Enma comes for follow-up after her hospitalization in January for CHF. Subsequently she had hospitalization with acute CVA suspected to be embolic and was started on Eliquis therapy although there was no evidence of atrial fibrillation but high likelihood of it. Echocardiogram at that time showed normal LV ejection fraction but severe LVH with elevated filling pressures. She does have pretty limited exercise activity currently. Currently not on any loop diuretics but on Farxiga. She has no orthopnea, leg edema. She has having improved function neurologically but still not completely back to normal. Currently still in acute rehab denies any chest pain. Blood pressures remained well controlled on current medications. She is having other noncardiac issues with urinary retention, UTI, electrolyte abnormalities. She has not had any ischemic workup. Daughter thinks that she might have sleep apnea, this has not been worked up. She also not has had any workup for atrial fibrillation. [facility] Medical History CVA (cerebral vascular accident) (HFpEF) heart failure with preserved ejection fraction Left leg weakness SOB (shortness of breath) Gout of big toe Elevated troponin Bilateral wheezing Leg edema Increasing shortness of breath 2+ pitting edema Cataract Hypertension Gout Surgical History History of cholecystectomy H/O: hysterectomy Social History Household Members: Children Housing: House Do you presently have visiting nurse or other home services: No Alcohol intake: former Comment: refusing alarms Patient Tobacco Use Status: Never used Tobacco Second Hand Smoke Exposure: No Advance Directives Date on File: 04/08/24 service: No Current occupational status: retired Review of Systems Const Denies chills, Denies fatigue, Denies fever(s), Denies frequent falls, Denies weakness, Denies weight gain and Denies weight loss ENT Denies dizziness Card Denies chest pain, Denies leg edema, Denies lightheadedness, Denies palpitations, Denies dyspnea, Denies dyspnea on exertion, Denies orthopnea and Denies other (loss of consciousness) Resp Denies cough, Denies dyspnea and Denies dyspnea on exertion GI Denies hematochezia and Denies change in stool character Musc Denies abnormal gait, Denies muscle weakness, Denies numbness, Denies radiating pain into limb and Denies tingling Neuro Denies abnormal gait, Denies dizziness, Denies frequent falls, Denies numbness, Denies tingling and Denies weakness Endo Denies fatigue and Denies palpitations Physical Exam Vital Signs: Last Vital Signs Pulse 57 05/29/24 10:45 BP 110/70 05/29/24 10:45 Const General: cooperative, comfortable, no acute distress, alert and awake Nutritional Appearance: overweight Orientation/consciousness: patient oriented x3 Limitations: wheelchair Neck Neck: Yes trachea midline, Yes supple and Yes no JVD Resp Effort & Inspection: normal respiratory effort Auscultation: clear to auscultation bilaterally Cardio Jugular venous distension: no JVD Rate: regular rate Rhythm: regular rhythm Heart sounds: S1 normal heart sound present, S2 normal heart sound present, no click, no gallops and no murmurs GI Auscultation: normal bowel sounds Skin General skin exam: no rashes or lesions noted Neuro General: patient oriented x3 and other (Left hemiparesis) Assessment & Plan Assessment & Plan (1) (HFpEF) heart failure with preserved ejection fraction: Code(s): I50.30 - Unspecified diastolic (congestive) heart failure Category: Medical Plan: Heart failure preserved ejection fraction this elderly woman with multiple comor bidities including renal dysfunction, CVA, diabetes, anemia. Patient had significantly elevated blood pressure for long time. She does have significant hypertensive heart disease suggestive of severe LVH. Infiltrative disorder also needs to be considered. Patient's blood pressure is currently well optimized and clinically she appears to be euvolemic although she should be on loop diuretics on a p.r.n. basis. Will obtain blood work including BNP and BNP. Given her multiple risk factors she requires workup for myocardial ischemia. Suggest a vasodilating myocardial perfusion imaging. Also suggest renal duplex to rule out renal artery stenosis given her significantly elevated blood pressure in the past and chronic kidney disease although blood pressure is currently well optimized. Also would suggest workup for sleep apnea given her multiple risk factors. Continue Farxiga therapy. Continue aggressive blood pressure control. Daily weight monitoring avoidance of salt loading needs to be pursued. Lasix use when she developed fluid overload. (2) CVA (cerebral vascular accident): Code(s): I63.9 - Cerebral infarction, unspecified Category: Medical Plan: CVA of unclear etiology. High risk for atrial fibrillation given her multiple risk factors. Would suggest a 30 day event monitor to further assess for any presence of atrial fibrillation. We also discussed about possibility of pursuing implantable loop recorder if cm is negative. For now continue Eliquis therapy. Continue aggressive risk factor modification including high intensity statin therapy, goal LDL should be less than 70 mg/dL. 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 Adorno Orders: Orders Basic Metabolic Panel Today I50.30 - Unspecified diastolic (congestive) heart failure B Type Natriuretic Peptide Today I50.30 - Unspecified diastolic (congestive) heart failure ECG 30 day event monitor Today I63.9 - Cerebral infarction, unspecified CA lexiscan stress w madelin Today I50.30 - Unspecified diastolic (congestive) heart failure renal doppler Today I50.30 - Unspecified diastolic (congestive) heart failure RT home sleep study Today I50.30 - Unspecified diastolic (congestive) heart failure Medications: New furosemide (Lasix) 40 mg PO DAILY PRN 20 tabs 0RF edema I50.30 - Unspecified diastolic (congestive) heart failure Coding Level of Care Code Est Pt Level 5 (90945) Diagnoses (HFpEF) heart failure with preserved ejection fraction I50.30 CVA (cerebral vascular accident) I63.9
== END 2024-05-29 11:23 | disposition home or self-care (01) ==
PROVIDERS: PCP Nurse Practitioner Primary Care; Visit Provider Internal Medicine Cardiovascular Disease
DX: I50.30 Unspecified diastolic (congestive) heart failure (principal); I69.398 Other sequelae of cerebral infarction
CPT/HCPCS: 99214

== ENCOUNTER 2024-05-29 10:29 | Outpatient (REF) | payer MEDICARE, SELFPAY ==
[2024-05-29 13:12] LABS: Anion Gap 13 (12-20); Blood Urea Nitrogen 32 mg/dL (9-16); Calcium 9.9 mg/dL (8.4-10.2); Carbon Dioxide 19 mmol/L (22-29); Chloride 111 mmol/L (96-108); Estimated Glomerular Filt Rate 27; Glucose Random 149 mg/dL (60-115); Potassium 4.7 mmol/L (3.3-5.1); Sodium 138 mmol/L (135-145)
[2024-05-29 13:15] LABS: B Type Natriuretic Peptide 345 pg/mL (<100)
== END 2024-05-29 10:30 | disposition home or self-care (01) ==
LOC: HO.LAB 10:29
PROVIDERS: PCP Nurse Practitioner Primary Care; Visit Provider Internal Medicine Cardiovascular Disease
DX: I50.30 Unspecified diastolic (congestive) heart failure (principal); Z86.73 Personal history of transient ischemic attack (TIA), and cerebral infarction without residual deficits
CPT/HCPCS: 36415; 80048; 83880; 99212

== ENCOUNTER 2024-06-25 10:23 | Outpatient (AMB) | payer MEDICARE, SELFPAY ==
--- NOTE | 2024-06-25 10:26 | A.OFFVIS_ITS ---
Intake Visit Reasons: urinary frequency/dysuria Intake Note: Patient is present for urinary frequency/dysuria Urology Medication:tamsulosin Antibiotic Allergy:penicillin Blood Thinner:eliquis TODAY'S PVR:0ML'S Pile Driver Required: No Allergies Penicillins [PENICILLINS] Allergy (Unknown, Verified 08/15/24 21:11) Rash lactose Adverse Reaction (Mild, Verified 08/15/24 21:11) Unknown shellfish Allergy (Mild, Uncoded 08/15/24 21:11) Unknown HPI Comments Details: Enma Gaston is a 74 years old woman with past medical history significant for type 2 diabetes mellitus on insulin, recent CVA with left hemiparesis on Eliquis, CKD, hyperlipidemia and essential hypertension, who I initially evaluated in consultation in March 2024 at [facility]. She had urinary retention she was treated for a UTI. She was discharged with padilla amd was started tamsulosin. She is currently voiding. Bladder scan PVR is minimal. She is unable to give urine sample today. Will continue to monitor PVR, cont tamsulosin. [facility] Medical History CVA (cerebral vascular accident) (HFpEF) heart failure with preserved ejection fraction Left leg weakness SOB (shortness of breath) Gout of big toe Elevated troponin Bilateral wheezing Leg edema Increasing shortness of breath 2+ pitting edema Cataract Hypertension Gout Surgical History History of cholecystectomy H/O: hysterectomy Social History Household Members: Children Housing: House Do you presently have visiting nurse or other home services: No Alcohol intake: never Comment: refusing alarms Patient Tobacco Use Status: Never used Tobacco Second Hand Smoke Exposure: No Advance Directives Date on File: 04/08/24 service: No Current occupational status: retired Review of Systems Const All systems reviewed & are unremarkable except as noted in HPI and below Reports no additional complaints Eyes Reports no additional complaints ENT Reports no additional complaints Card Reports no additional complaints Resp Reports no additional complaints GI Reports no additional complaints Reports as per HPI Musc Reports no additional complaints Skin/Breast Reports system reviewed and no additional complaints, except as documented Neuro Reports no additional complaints Psych Reports no additional complaints Endo Reports no additional complaints [place]/Lymph Reports no additional complaints Aller/Immun Reports no additional complaints Office Procedures Post Void Residual Post Residual Void Post Void Residual (PVR): 0 [id number]-[id number] Void Residual by ultrasound Assessment & Plan Assessment & Plan (1) Urinary retention: Code(s): R33.9 - Retention of urine, unspecified Category: Medical (2) Urinary urgency: Code(s): R39.15 - Urgency of urination Category: Medical (3) History of UTI: Code(s): Z87.440 - Personal history of urinary (tract) infections Category: Medical Plan Will continue to monitor PVR, cont tamsulosin. Patient Instructions: The patient had an opportunity to ask questions regarding treatment plan. The patient expressed understanding and agreement with the above treatment plan. The patient is aware they should contact our office by phone for worsening of their current condition or the appearance of new symptoms. Compliance is encouraged with any medications and followup testing that is ordered. It is a privilege to be allowed the opportunity to participate in the urologic care of your patient. If you have any questions or concerns regarding treatment for the above conditions please do not hesitate to contact me. The office telephone contact is [phone]. This note is constructed in part using voice recognition software. While every effort has been made to ensure accuracy inside sales account manager errors may have been included. Yours sincerely, Errol Grissom MD Coding Level of Care Code Est Pt Level 4 (64953) Diagnoses Urinary retention R33.9 Urinary urgency R39.15 History of UTI Z87.440 CPT Codes Post Residual Void - PVR CPT Code: 96582-Sskh Void Residual by ultrasound ([id number])
== END 2024-06-25 11:11 | disposition home or self-care (01) ==
PROVIDERS: PCP Nurse Practitioner Primary Care; Visit Provider Urology
DX: R33.9 Retention of urine, unspecified (principal); R39.15 Urgency of urination; Z87.440 Personal history of urinary (tract) infections
CPT/HCPCS: 99214

== ENCOUNTER → 2024-06-25 10:23 | Outpatient (BNVA) | payer MEDICARE, SELFPAY | PROVIDERS: PCP Nurse Practitioner Primary Care; Visit Provider Urology | DX: R33.9 Retention of urine, unspecified (principal); R39.15 Urgency of urination; Z87.440 Personal history of urinary (tract) infections | CPT/HCPCS: 51798; 99212 ==

== ENCOUNTER 2024-07-13 09:49 | Outpatient (REF) | payer MEDICARE, SELFPAY ==
--- NOTE | ~2024-07-13 | US_ITS ---
EXAMINATION: US RETROPERITONEAL COMPLETE (RENAL) CLINICAL INFORMATION: Hypertension. COMPARISON: None available. TECHNIQUE: Ultrasound of the kidneys was performed along with color flow Doppler imaging and velocity measurements in the proximal mid and distal renal arteries. Aortic velocities were measured and renal/aortic ratios were calculated. Segmental renal indices were calculated. FINDINGS: RIGHT KIDNEY: 8.1 x 3.5 x 4.4 cm (SAG x AP x TRV). The right kidney is small with some cortical calcification and cortical thinning. Mid renal echogenic focus measuring 3 mm could represent a nonobstructing stone. No concerning solid focal parenchymal lesions. No hydronephrosis. LEFT KIDNEY: 10.3 x 5.4 x 4.2 cm (SAG x AP x TRV). The kidney is normal in size, contour, and echogenicity. Renal cortical thickness is normal. There is an upper pole 4 mm echogenic focus consistent with a nonobstructing stone. There is no hydronephrosis. A benign mid renal 0.6 cm Bosniak class I renal cyst is noted which requires no additional imaging or followup. No solid renal masses are seen. ADDITIONAL FINDINGS: In the region of the splenic henry, there is an ovoid vascular mass present measuring 4.8 x 6.5 x 3.7 cm which was also seen previously. DOPPLER EXAM: Velocity measurements in the proximal mid and distal renal arteries are normal. Velocity in the aorta is normal and, therefore, the renal aortic ratios are normal. Segmental resistive indices are all within normal limits aside from some minimal elevation on the left with a maximum of 0.84 (upper limits of normal is 0.80). US/US renal doppler IMPRESSION: 1. Small right kidney with cortical thinning. 2. Small nonobstructing bilateral renal calculi. 3. No convincing evidence to suggest renovascular hypertension. 4. Mass in splenic henry may be accessory splenic tissue or a splenule. Further workup would require cross-sectional imaging such as CT or MRI. I think MRI, even without contrast would be the exam of choice. Electronically signed by: Mohit Terrazas MD 07/15/2024 05:04 PM EDT
== END 2024-07-13 09:50 | disposition home or self-care (01) ==
LOC: HO.US 09:49
PROVIDERS: Visit Provider Internal Medicine Cardiovascular Disease
DX: I50.30 Unspecified diastolic (congestive) heart failure (principal); I10 Essential (primary) hypertension; I63.9 Cerebral infarction, unspecified
CPT/HCPCS: 76775; 93975

== ENCOUNTER → 2024-07-20 10:37 | Outpatient (REF) | payer MEDICARE, SELFPAY ==
--- NOTE | 2024-07-20 10:42 | HM_ITS ---
* Total procedure length 30 days. Wear time 20 days. * Underlying rhythm is sinus with an average rate of 63/Min. * Rare supraventricular ectopy. Otherwise, no significant arrhythmias. * No symptoms mentioned in diary. MTDD
== END ==
LOC: HO.CARD 10:37
PROVIDERS: Visit Provider Internal Medicine Cardiovascular Disease
DX: I48.19 Other persistent atrial fibrillation (principal); I49.9 Cardiac arrhythmia, unspecified
CPT/HCPCS: 93270

== ENCOUNTER 2024-08-15 20:58 | Emergency (ER) | payer MEDICARE, MEDICAID, SELFPAY ==
--- NOTE | 2024-08-15 | ECG_ITS ---
Test Reason : FALL Blood Pressure : / mmHG Vent. Rate : 067 BPM Atrial Rate : 067 BPM P-R Int : 206 ms QRS Dur : 088 ms QT Int : 410 ms P-R-T Axes : 069 007 069 degrees QTc Int : 433 ms Normal sinus rhythm Nonspecific T wave abnormality Abnormal ECG When compared with ECG of 07-APR-2024 18:49, Nonspecific T wave abnormality, worse in Lateral leads Referred By: Generic ED Physician Electronically Signed By:ESA CANCINO
--- NOTE | ~2024-08-15 | XR_ITS ---
EXAMINATION: XR LUMBOSACRAL SPINE CLINICAL INFORMATION: Back pain COMPARISON: None available. TECHNIQUE: A single view of the lumbosacral spine. FINDINGS: Limited secondary to AP view only available. The vertebral body heights appear maintained. There is degenerative disc disease at L4-L5. XR/XR lumbar spine 1V IMPRESSION: Degenerative disease at L4-L5. Limited exam secondary to single view only. Electronically signed by: Olga Richardson MD 08/15/2024 09:49 PM EDT RP
--- NOTE | ~2024-08-15 | CT_ITS ---
EXAMINATION: CT HEAD WITHOUT CONTRAST CT CERVICAL SPINE WITHOUT CONTRAST CLINICAL INFORMATION: Fall, head strike COMPARISON: CT on 03/01/2024 TECHNIQUE: Contiguous axial imaging was performed from the skull base to vertex without intravenous administration of contrast. In addition, helical noncontrast CT imaging was acquired through the cervical spine and source images were reviewed along with axial reconstructions and sagittal and coronal MPRs. DLP: 1037 mGy-cm FINDINGS: HEAD: No intracranial mass, hemorrhage, or midline shift is visualized. The ventricles and sulci are age-appropriate. No extra-axial collections are identified. The paranasal sinuses are well aerated. Encephalomalacia in the right frontoparietal lobe. CERVICAL SPINE: There is no evidence of acute cervical spine fracture. Vertebral bodies remain normal in height and alignment is anatomic. There is loss of intervertebral disc space and osteophyte formation at C4-C5 and C5-C6. No pre- or paravertebral soft tissue abnormality is identified. Limited assessment of the lung apices is unremarkable. CT/CT head/brain wo IV con IMPRESSION: 1. No acute intracranial pathology. 2. No CT evidence of acute cervical spine fracture or traumatic subluxation Electronically signed by: Olga Richardson MD 08/15/2024 09:52 PM EDT
--- NOTE | ~2024-08-15 | CT_ITS ---
EXAMINATION: CT HEAD WITHOUT CONTRAST CT CERVICAL SPINE WITHOUT CONTRAST CLINICAL INFORMATION: Fall, head strike COMPARISON: CT on 03/01/2024 TECHNIQUE: Contiguous axial imaging was performed from the skull base to vertex without intravenous administration of contrast. In addition, helical noncontrast CT imaging was acquired through the cervical spine and source images were reviewed along with axial reconstructions and sagittal and coronal MPRs. DLP: 1037 mGy-cm FINDINGS: HEAD: No intracranial mass, hemorrhage, or midline shift is visualized. The ventricles and sulci are age-appropriate. No extra-axial collections are identified. The paranasal sinuses are well aerated. Encephalomalacia in the right frontoparietal lobe. CERVICAL SPINE: There is no evidence of acute cervical spine fracture. Vertebral bodies remain normal in height and alignment is anatomic. There is loss of intervertebral disc space and osteophyte formation at C4-C5 and C5-C6. No pre- or paravertebral soft tissue abnormality is identified. Limited assessment of the lung apices is unremarkable. CT/CT cervical spine wo IV con IMPRESSION: 1. No acute intracranial pathology. 2. No CT evidence of acute cervical spine fracture or traumatic subluxation Electronically signed by: Olga Richardson MD 08/15/2024 09:59 PM EDT
[2024-08-15 21:06] VITALS: BP 146/82; BP 154/77; PULSE 68; PULSE 73; RESP 18; TEMP 36.9; O2SAT 95; BMI 31.8
[2024-08-15 21:36] LABS: Hemoglobin 9.8 g/dl (12.0-16.0); Mean Corpuscular HGB Conc 32.7 g/dl (31.0-35.0); Mean Corpuscular Hemoglobin 29.6 pg (27.0-33.0); Mean Corpuscular Volume 90.6 fL (80.0-98.0); Mean Platelet Volume 10.2 fL (9.4-12.3); Platelet Count 208 X10*3/uL (160-400); Red Blood Count 3.31 X10*6/uL (4.20-5.50); Red Cell Distribution Width 15.1 % (11.0-16.0); White Blood Count 7.9 X10*3/uL (4.8-10.8)
[2024-08-15 21:41] LABS: Prothrombin Time 11.8 SEC (10.9-12.4)
[2024-08-15 21:57] LABS: Alanine Aminotransferase 13 U/L (0-31); Alkaline Phosphatase 136 U/L (39-117); Anion Gap 15 (12-20); Aspartate Amino Transferase 16 U/L (5-31); Bilirubin Total 0.3 mg/dL (0.0-1.0); Blood Urea Nitrogen 34 mg/dL (9-16); Calcium 9.7 mg/dL (8.4-10.2); Carbon Dioxide 21 mmol/L (22-29); Chloride 111 mmol/L (96-108); Creatinine Clr Calc Pharmacy 25.9; Estimated Glomerular Filt Rate 28; Glucose Random 176 mg/dL (60-115); Potassium 4.6 mmol/L (3.3-5.1); Sodium 142 mmol/L (135-145); Total Protein 6.6 g/dL (6.5-8.0)
[2024-08-15 22:03] LABS: Troponin-I High Sensitivity 19.6 ng/L (<3.5-17.0)
--- NOTE | 2024-08-15 22:08 | PC.NURSE ---
Pt CT results came back. Reviewed by and ok to take off collar.
[2024-08-15] MEDS: oxyCODONE HCl Immed Release 5 MG TABLET PO (22:42)
--- NOTE | 2024-08-15 22:49 | PC.NURSE ---
Discharge report given to Maddison BUSBY at [facility].
[2024-08-15 23:00] VITALS: BP 154/72; PULSE 66; RESP 20; TEMP 37; O2SAT 95
[2024-08-15 23:13] VITALS: BP 154/72; PULSE 66; RESP 20; TEMP 37; O2SAT 95
--- NOTE | 2024-08-15 23:37 | ED_ITS ---
HPI - Fall General Chief Complaint: Fall Stated Complaint: Fall +HS +LUGO +Thinners, hx stroke hx Lside weaknes Time Seen by Provider: 08/15/24 22:19 Source: patient and family Mode of arrival: EMS Limitations: no limitations History of Present Illness ED Provider: leonel PAL Narrative: Patient came from longterm on [facility] for [facility] with CVA with left-sided hemiparesis walks with walker apparently while walking she fell landed on her buttocks and then hit her head complaining of lower back pain no loss of consciousness no significant headache no vomiting this happened at 08:[address] scan of the head and C-spine with done prior to my evaluation which was negative lumbar spine x-ray was also negative Related Data Home Medications ?Medication ?Instructions ?Recorded ?Confirmed acetaminophen 500 mg tablet 500 mg PO DAILY PRN Pain 02/06/24 05/29/24 insulin lispro 100 unit/mL 1 sliding scale dose subcut QIDACHS 03/01/24 05/29/24 subcutaneous pen (Humalog KwikPen (U-100) Insulin) amlodipine 5 mg tablet 5 mg PO DAILY 04/07/24 05/29/24 atorvastatin 40 mg tablet 40 mg PO BEDTIME 04/07/24 05/29/24 carvedilol 12.5 mg tablet 12.5 mg PO BID 04/07/24 05/29/24 gemfibrozil 600 mg tablet 600 mg PO BID 04/07/24 05/29/24 insulin glargine 100 unit/mL (3 18 unit subcut BEDTIME 04/07/24 05/29/24 mL) subcutaneous pen (Lantus Solostar U-100 Insulin) isosorbide mononitrate 30 mg 30 mg PO DAILY 04/07/24 05/29/24 tablet,extended release 24 hr melatonin 3 mg capsule 6 mg PO BEDTIME PRN Sleep 04/07/24 05/29/24 multivitamin with minerals 1 tab PO DAILY 04/07/24 05/29/24 cholecalciferol (vitamin D3) 25 25 mcg PO DAILY 05/28/24 05/29/24 mcg (1,000 unit) capsule magnesium hydroxide 400 mg/5 mL 5 ml PO DAILY PRN 05/28/24 05/29/24 oral suspension (Milk of Magnesia) trazodone 50 mg tablet 25 mg PO BEDTIME PRN 05/28/24 05/29/24 Previous Rx's ?Medication ?Instructions ?Recorded lancets 28 gauge (FreeStyle #300 ea 02/06/24 Lancets) blood-glucose meter (FreeStyle #1 ea 02/07/24 Lite Meter kit) blood sugar diagnostic (FreeStyle #100 ea 02/13/24 Lite Strips) blood-glucose meter (FreeStyle #1 ea 02/13/24 Lite Meter kit) lancets 28 gauge (FreeStyle #100 ea 02/13/24 Lancets) pen needle, diabetic 32 gauge x #100 ea 02/13/24 1/ apixaban 5 mg tablet (Eliquis) 5 mg PO BID #60 tabs 03/04/24 blood sugar diagnostic (FreeStyle #100 ea 03/13/24 Lite Strips) tamsulosin 0.4 mg capsule (Flomax) 0.8 mg (2 x 0.4 mg) PO BEDTIME #60 04/11/24 caps dapagliflozin propanediol 5 mg 5 mg PO DAILY #90 tabs 05/04/24 tablet (Farxiga) furosemide 40 mg tablet (Lasix) 40 mg PO DAILY PRN edema #20 tabs 05/29/24 Allergies Allergy/AdvReac Type Severity Reaction Status Date / Time Penicillins [PENICILLINS] Allergy Unknown Rash Verified 08/15/24 21:11 lactose AdvReac Mild Unknown Verified 08/15/24 21:11 shellfish Allergy Mild Unknown Uncoded 08/15/24 21:11 Review of Systems 2 Review of Systems: Yes all other systems are reviewed and are negative PMFSH Past Medical History Medical History CVA (cerebral vascular accident) (HFpEF) heart failure with preserved ejection fraction Left leg weakness SOB (shortness of breath) Gout of big toe Elevated troponin Bilateral wheezing Leg edema Increasing shortness of breath 2+ pitting edema Cataract Hypertension Gout Surgical History History of cholecystectomy H/O: hysterectomy Social History Social History Household Members: Children Housing: House Do you presently have visiting nurse or other home services: No Alcohol intake: never Comment: refusing alarms Patient Tobacco Use Status: Never used Tobacco Smoked in Last 30 Days: No Second Hand Smoke Exposure: No Use of substances other than those prescribed or required for medical reasons: No Advance Directives: No Advance Directives Date on File: 04/08/24 service: No Current occupational status: retired Physical Exam 2 Vital Signs: Vital Signs: Last Vital Signs Temp 98.6 F 08/15/24 23:13 Pulse 66 08/15/24 23:13 Resp 20 08/15/24 23:13 BP 154/72 H 08/15/24 23:13 Pulse Ox 95 08/15/24 23:13 O2 Del Method Room Air 08/15/24 23:13 BMI result Body Mass Index 31.8 Appearance: Alert. Oriented X3. No acute distress. Eyes: PERRLA, No Nystagmus ENT: Pharynx normal. Oral Mucosa moist Neck: Normal inspection. Neck supple. CVS: Normal heart rate and rhythm. Pulses normal. Respiratory: No respiratory distress. Equal air entry bilateral, no wheezing/rales/rhonchi Abdomen: Soft and nontender. Bowel sounds are present, no mass palpable, no CVA tenderness Skin: Skin warm and dry. Normal skin color. Normal skin turgor. Extremities: No lower extremity edema. No calf tenderness back: Diffuse lumbar and paraspinal tenderness no bruising Neuro: Oriented X 3. Left-sided hemiparesis No sensory deficit.No cerebellar signs , cranial nerves II-XII intact Medications Administered Discontinued Medications Generic Name Dose Route Start Last Admin Trade Name Freq PRN Reason Stop Dose Admin Oxycodone HCl 5 mg 08/15/24 22:27 08/15/24 22:42 Oxycodone Hcl Immed Release 5 Mg Tablet PO 08/15/24 22:28 5 mg ONCE ONE Administration Medical Decision Making Lab Data [facility] Lab Attestation statement: I reviewed the patient's lab results. 08/15/24 21:21 08/15/24 21:21 Labs: Lab Results 08/15/24 Range/Units 21:21 WBC 7.9 (4.8-10.8) X10*3/uL RBC 3.31 L (4.20-5.50) X10*6/uL Hgb 9.8 L (12.0-16.0) g/dl Hct 30.0 L (37.0-47.0) % MCV 90.6 (80.0-98.0) fL MCH 29.6 (27.0-33.0) pg MCHC 32.7 (31.0-35.0) g/dl RDW 15.1 (11.0-16.0) % Plt Count 208 D (160-400) X10*3/uL MPV 10.2 (9.4-12.3) fL Absolute Nucleated RBC 0.000 (0.0-0.012) X10*3/uL Nucleated RBC % (auto) 0.0 (0.0-0.2) /100WBC PT 11.8 (10.9-12.4) SEC INR 1.0 (0.9-1.1) Sodium 142 (135-145) mmol/L Potassium 4.6 (3.3-5.1) mmol/L Chloride 111 H (96-108) mmol/L Carbon Dioxide 21 L (22-29) mmol/L Anion Gap 15 (12-20) BUN 34 H (9-16) mg/dL Creatinine 1.76 H (0.5-1.4) mg/dL Estim Creat Clear Calc 25.9 Estimated GFR 28 Random Glucose 176 H (60-115) mg/dL Calcium 9.7 (8.4-10.2) mg/dL Total Bilirubin 0.3 (0.0-1.0) mg/dL AST 16 (5-31) U/L ALT 13 (0-31) U/L Alkaline Phosphatase 136 H (39-117) U/L Troponin I High Sens 19.6 H (<3.5-17.0) ng/L Total Protein 6.6 (6.5-8.0) g/dL Albumin 4.0 (3.5-5.0) g/dL Independent Interpretation I performed an independent interpretation of an: EKG and CT Scan Interpretation: Negative C-spine and head CT negative lumbar spine Normal sinus rhythm heart rate 67 beats per minute nonspecific STT wave changes no acute ischemia Radiology Impression Discussion of test interpretation with radiology: I have reviewed the radiologist's reading. Discharge Plan Discharge Clinical Impression: Fall Patient Disposition: Xfer SNF Transfer Details: Patient's CT scan of the head and cervical spine negative x- ray of lumbar spine also negative Instructions: Fall Prevention for Older Adults (ED) Additional Instructions: Care and cautions as advised CT scan of the head and cervical spine negative for fracture or bleed xray lumbar spine negative for fracture Tylenol for pain Prescriptions: No Action (DME) lancets [FreeStyle Lancets] 28 gauge misc See Rx Instructions .Route Qty: 300 0RF Rx Instructions: Test 3 times per day (DME) blood-glucose meter [FreeStyle Lite Meter] Kit See Rx Instructions .Route Qty: 1 0RF Rx Instructions: As directed to test blood sugar 3 times per day (DME) FreeStyle Lite Strips Strip See Rx Instructions .Route Qty: 100 5RF Rx Instructions: three times per day dapagliflozin propanediol [Farxiga] 5 mg tablet 5 mg PO DAILY Qty: 90 0RF insulin lispro [Humalog KwikPen Insulin] 100 unit/mL insulin pen 1 sliding scale dose SUBCUT QIDACHS Rx Instructions: Blood Sugar: <150 - 0 units 151-200 - 4 units 201-250 - 6 units 251-300 - 8 units 301-350 - 10 units 351-400 -12 units over 400 -[address] Carmona 5 mg Tablet 5 mg PO BID Qty: 60 0RF atorvastatin 40 mg tablet 40 mg PO BEDTIME amlodipine 5 mg tablet 5 mg PO DAILY gemfibrozil 600 mg tablet 600 mg PO BID isosorbide mononitrate 30 mg tablet extended release 24 hr 30 mg PO DAILY carvedilol 12.5 mg tablet 12.5 mg PO BID insulin glargine [Lantus Solostar U-100 Insulin] 100 unit/mL (3 mL) insulin pen 18 unit SUBCUT BEDTIME melatonin 3 mg Capsule 6 mg PO BEDTIME PRN (Reason: Sleep) multivitamin with minerals Tablet 1 tab PO DAILY tamsulosin [Flomax] 0.4 mg capsule 0.8 mg PO BEDTIME Qty: 60 0RF acetaminophen 500 mg Tablet 500 mg PO DAILY PRN (Reason: Pain) (DME) FreeStyle Lite Strips Strip Qty: 100 0RF Rx Instructions: Test four times a day or as directed. (DME) blood-glucose meter [FreeStyle Lite Meter] Kit Qty: 1 0RF Rx Instructions: As Directed (DME) pen needle, diabetic 32 gauge x 1/4 needle Qty: 100 0RF Rx Instructions: Use four times a day or as directed. (DME) lancets [FreeStyle Lancets] 28 gauge misc Qty: 100 0RF Rx Instructions: Test four times a day or as directed. cholecalciferol (vitamin D3) 25 mcg (1,000 unit) capsule 25 mcg PO DAILY trazodone 50 mg tablet 25 mg PO BEDTIME PRN magnesium hydroxide [Milk of Magnesia] 400 mg/5 mL suspension 5 ml PO DAILY PRN furosemide [Lasix] 40 mg tablet 40 mg PO DAILY PRN (Reason: edema) Qty: 20 0RF Interventions: ED Discharge Assessment Last Done: 08/15/24 23:13 Discharge Date/Time: 08/15/24 23:10 Print Language: Sudanese
== END 2024-08-15 23:10 | disposition skilled nursing facility (03) ==
PROVIDERS: Emergency Provider Internal Medicine
DX: M54.50 Low back pain, unspecified (principal); Z91.81 History of falling; E11.9 Type 2 diabetes mellitus without complications; I10 Essential (primary) hypertension; I48.91 Unspecified atrial fibrillation; I69.354 Hemiplegia and hemiparesis following cerebral infarction affecting left non-dominant side; Z79.01 Long term (current) use of anticoagulants; Z79.4 Long term (current) use of insulin; Z79.02 Long term (current) use of antithrombotics/antiplatelets; Z79.899 Other long term (current) drug therapy; Z87.440 Personal history of urinary (tract) infections
CPT/HCPCS: 36415; 70450; 72020; 72125; 80053; 84484; 85027; 85610; 93005; 99284; 99285

== ENCOUNTER → 2024-08-15 21:08 | Outpatient (BNV) | payer MEDICARE, SELFPAY | PROVIDERS: Emergency Provider Internal Medicine; Visit Provider Internal Medicine | DX: R94.31 Abnormal electrocardiogram [ECG] [EKG] (principal) | CPT/HCPCS: 93010 ==

== ENCOUNTER → 2024-08-17 08:24 | Outpatient (REF) | payer MEDICARE, SELFPAY ==
--- NOTE | ~2024-08-17 | NM_ITS ---
Lexiscan Myocardial perfusion study Indication: Congestive heart failure Technique: The patient was brought in for a Lexiscan perfusion study on 08/17/2024 and was injected 0.4 mg of Lexiscan intravenously. Within a minute of this injection 23 mCi of sestamibi was given intravenously. Images were obtained using the SPECT gamma camera interlaced with the gating device. Images were obtained in supine position. Resting perfusion study was performed on 08/19/2024. Patient was administered 23 mCi of sestamibi intravenously at rest. Images were then obtained in supine position. Total DLP 173 mGy-cm. Images were processed with the software and compared side to side in short axis, horizontal long axis and vertical long axis views. Findings: Raw aquisition reviewed. Arms by the patient's side. The stress perfusion study showed decreased tracer uptake in the distal part of inferolateral wall. There is improvement with CT attenuation correction suggestive of diaphragmatic attenuation artifact. There is also reduced uptake in the basal part of septum and lateral wall. The basal septal defect improves with CT attenuation correction but lateral defect still persists. The gated study shows normal LV systolic function with calculated LVEF of 61%. LV cavity is normal in size. The gated study shows normal wall thickening and contraction of segments. Resting study shows decreased tracer uptake in the inferolateral wall. There is improvement with CT attenuation correction suggestive of diaphragmatic attenuation artifact. Gating at rest reveals normal wall motion with ejection fraction at 63%. The findings are consistent with fixed inferolateral defect suggestive of diaphragmatic attenuation artifact. Likely fixed basal lateral defect. NM/NM madelin perf SPECT rest & str Impression: 1. Myocardial perfusion imaging study shows no evidence of ischemia. Fixed appearing inferolateral perfusion defect probably from diaphragmatic attenuation artifact. In the basal lateral wall cannot exclude nontransmural infarct. 2. Gated LVEF is 61% during stress and 63% during rest. 3. Transient ischemic dilatation not present. EKG component of the test reported separately. Electronically signed by: David Ashton MD 08/20/2024 12:29 PM EDT
--- NOTE | 2024-08-17 08:28 | CA_ITS ---
Acquisition Time: 2024-08-17 08:58:06 Total Exercise Time: 00:02:00 Test Indications: CHF CVA Medications: SEE H Protocol: LEXISCAN Max HR: 083 BPM 56% of Pred: 148 BPM Max BP: 124/070 mmHG Max Work Load: 1.0 METS Pharmacological stress test with Lexiscan injection, while sitting and kicking her legs, with shortness of breath, no chest discomfort, without arrythmia, with normotensive response to injection, with nondiagnostic EKG for ischemia. In recovery she was treated with Aminophylline 75mg IVP to reverse Lexican. Nuclear images pending. Test reviewed with Dr Ashton. Referred By: Branden Prajapati Overread By: EVE COLON
[2024-08-17 08:39] LABS: MANUAL DIFF FLAG NO
[2024-08-17 09:10] LABS: Basophils Percent Auto 0.2 % (0-2); Eosinophils Absolute Auto 0.4 X10*3/uL (0.0-0.4); Eosinophils Percent Auto 4.3 % (0-4); Hematocrit 31.2 % (37.0-47.0); Hemoglobin 9.8 g/dl (12.0-16.0); Imm Gran Abs Auto 0.22 X10*3/uL (0.00-0.03); Imm Gran Pct Auto 2.5 % (0.0-0.4); Lymphocytes Absolute Auto 2.9 X10*3/uL (1.2-4.9); Lymphocytes Percent Auto 32.6 % (20-40); Mean Corpuscular HGB Conc 31.4 g/dl (31.0-35.0); Mean Corpuscular Hemoglobin 28.8 pg (27.0-33.0); Mean Corpuscular Volume 91.8 fL (80.0-98.0); Mean Platelet Volume 10.6 fL (9.4-12.3); Monocytes Absolute Auto 1.3 X10*3/uL (0.1-1.2); Monocytes Percent Auto 14.4 % (2-11); Neutrophils Absolute Auto 4.1 x10*3/uL (2.0-8.3); Platelet Count 218 X10*3/uL (160-400); Red Cell Distribution Width 15.2 % (11.0-16.0); White Blood Count 8.9 X10*3/uL (4.8-10.8)
== END ==
LOC: HO.CARD 08:24
PROVIDERS: Nurse Practitioner Family; Visit Provider Internal Medicine Cardiovascular Disease
DX: I50.30 Unspecified diastolic (congestive) heart failure (principal); D64.9 Anemia, unspecified
CPT/HCPCS: 36415; 78452; 85025; 93017; A9500; J0280; J2785

== ENCOUNTER → 2024-08-17 08:28 | Outpatient (BNV) | payer MEDICARE, SELFPAY | PROVIDERS: Visit Provider Nurse Practitioner Family | DX: I50.9 Heart failure, unspecified (principal) | CPT/HCPCS: 78452; 93016; 93018 ==

== ENCOUNTER 2024-08-24 09:55 | Outpatient (AMB) | payer MEDICARE, SELFPAY ==
[2024-08-24 10:01] VITALS: BP 146/78; PULSE 64; O2SAT 97; BMI 31.6
--- NOTE | 2024-08-24 10:01 | MHC.OFFVIS ---
Vital Signs 08/24/24 10:01 Height 5 ft Weight 162 lb 0.636 oz BMI 31.6 BP 146/78 H Blood Pressure Location Rt brachial Position Sitting Pulse 64 Pulse Source Pulse Oximeter Pulse Oximetry (%) 97 Oxygen Delivery Method Room Air Intake Visit Reasons: Nocturnal Hypoxemia Allergies Penicillins [PENICILLINS] Allergy (Unknown, Verified 08/24/24 10:05) Rash lactose Adverse Reaction (Mild, Verified 08/24/24 10:05) Unknown shellfish Allergy (Mild, Uncoded 08/24/24 10:05) Unknown HPI HPI Nocturnal Hypoxemia: Details: Enma Staples is a pleasant 74 year old female, former minimal smoker, with underlying CHF, DMII, HTN, CVA 01/2024 on Eliquis. She was referred by cardiology for pulmonary evaluation after recent home sleep study revealed significant nocturnal hypoxemia, negative for NOE. She reports dyspnea on exertion and occasional wheezing, otherwise denies cough or chest tightness. She reports orthopnea and occasional BLE edema. She denies h/o asthma. She denies occupational exposures. She denies pertinent family history. She is currently residing at a SNF with the plan to be discharged once her daughter finds housing. [facility] Medical History CVA (cerebral vascular accident) (HFpEF) heart failure with preserved ejection fraction Left leg weakness SOB (shortness of breath) Gout of big toe Elevated troponin Bilateral wheezing Leg edema Increasing shortness of breath 2+ pitting edema Cataract Hypertension Gout Surgical History History of cholecystectomy H/O: hysterectomy Social History (Updated 08/24/24 @ 10:05 by Pauline Hurd CMA) Household Members: Children Housing: House Do you presently have visiting nurse or other home services: No Alcohol intake: never Comment: refusing alarms Patient Tobacco Use Status: Former Tobacco user Second Hand Smoke Exposure: No Advance Directives Date on File: 04/08/24 service: No Current occupational status: retired Review of Systems Const Denies chills, Denies excessive sweating, Denies fever(s), Denies headache(s) and Denies night sweats Eyes Denies dry eyes, Denies irritation and Denies itchy eyes ENT Reports Normal hearing present, Denies headache(s), Denies nasal congestion, Denies nasal discharge, Denies post nasal drip and Denies sore throat Card Denies chest pain, Denies chest pain at rest, Denies chest pain with activity, Denies claudication and Denies paroxysmal nocturnal dyspnea Resp Denies chest congestion, Denies cough, Denies excessive phlegm production, Denies pain on inspiration, Denies pain with cough and Denies stridor Musc Denies myalgias Neuro Reports Normal hearing present and Denies headache(s) Endo Denies excessive sweating [place]/Lymph Denies lymphadenopathy Aller/Immun Denies itchy eyes and Denies seasonal rhinorrhea Physical Exam Vital Signs: Last Vital Signs Pulse 64 08/24/24 10:01 BP 146/78 H 08/24/24 10:01 Pulse Ox 97 08/24/24 10:01 Oxygen Delivery Method Room Air 08/24/24 10:01 BMI result Body Mass Index 31.6 Const General: cooperative, healthy appearing, comfortable, no acute distress, well developed and alert Nutritional Appearance: obese Orientation/consciousness: patient oriented x3 Limitations: wheelchair HEENT Head: Yes normal to inspection, Yes normocephalic and Yes atraumatic Ears: hearing grossly normal bilaterally and external ears normal Eyes General: appearance normal, both eyes and all related structures Eyelids: Yes eyelids normal Sclerae: sclerae normal EOM: EOMs intact bilaterally Neck Neck: Yes normal visual inspection and Yes no lymphadenopathy Lymphatic: no lymphadenopathy noted Chest Chest palpation & inspection: normal inspection of the chest Resp Other: inspiratory bibasilar crackles. otherwise clear Effort & Inspection: normal respiratory effort, able to speak in complete sentences, no audible wheezes, no cough, no stridor, not tachypneic, no tripod positioning and no use of accessory muscles Cardio Jugular venous distension: no JVD Rate: regular rate Rhythm: regular rhythm Skin Other: warm, dry General skin exam: no rashes or lesions noted Neuro General: patient oriented x3 Cranial nerves: Yes Normal hearing present Cognition (Neuro): normal cognition Gait exam (Neuro): Normal gait present Extrem General: Yes normal to inspection, Yes capillary refill normal, Yes no clubbing, cyanosis or edema and Yes no pedal edema Psych Appearance: grossly normal and well kempt Speech and movement: Normal speech and movement present and Clear speech present Affect: normal affect Attitude: cooperative Thought process: Normal thought process present Thought content: Normal thought content present Insight: Good insight present (Psych) Judgement: Good judgement present (Psych) Assessment & Plan Assessment & Plan (1) Nocturnal hypoxemia: Code(s): G47.34 - Idiopathic sleep related nonobstructive alveolar hypoventilation Category: Medical (2) Dyspnea on exertion: Code(s): R06.09 - Other forms of dyspnea Category: Medical (3) (HFpEF) heart failure with preserved ejection fraction: Code(s): I50.30 - Unspecified diastolic (congestive) heart failure Category: Medical Plan Enma Staples presents for pulmonary evaluation after recent home sleep study revealed nocturnal hypoxemia, <88% for 321 minutes, lowest 72%. Will send for chest CT to assess for any underlying parenchymal condition contributing to symptoms. Will also attempt PFT. Will enter order for 2 L of supplemental oxygen at night and for overnight oximetry to ensure optimal liter flow. All questions were answered and patient is in agreement of plan. Will follow-up in 6-8 weeks or sooner if needed. Orders: Orders PFT pulmonary function test Today R06.09 - Other forms of dyspnea CT chest wo IV con Today G47.34 - Idiopathic sleep related nonobstructive alveolar hypoventilation Overnight Pulse Oximetry 4 Weeks G47.34 - Idiopathic sleep related nonobstructive alveolar hypoventilation Coding Level of Care Code New Pt Level 4 (95749) Diagnoses Nocturnal hypoxemia G47.34 Dyspnea on exertion R06.09 (HFpEF) heart failure with preserved ejection fraction I50.30
== END 2024-08-24 11:02 | disposition home or self-care (01) ==
PROVIDERS: PCP Nurse Practitioner Primary Care; Referring Provider Internal Medicine Cardiovascular Disease; Visit Provider Nurse Practitioner Family
DX: G47.34 Idiopathic sleep related nonobstructive alveolar hypoventilation (principal); R06.09 Other forms of dyspnea; I50.30 Unspecified diastolic (congestive) heart failure
CPT/HCPCS: 99204

== ENCOUNTER → 2024-08-24 09:55 | Outpatient (BNVA) | payer MEDICARE, SELFPAY | PROVIDERS: PCP Nurse Practitioner Primary Care; Referring Provider Internal Medicine Cardiovascular Disease; Visit Provider Nurse Practitioner Family | DX: G47.34 Idiopathic sleep related nonobstructive alveolar hypoventilation (principal); R06.09 Other forms of dyspnea; I50.30 Unspecified diastolic (congestive) heart failure; Z87.891 Personal history of nicotine dependence | CPT/HCPCS: 99202 ==

== ENCOUNTER 2024-08-31 13:13 | Outpatient (AMB) | payer MEDICARE, SELFPAY ==
--- NOTE | 2024-08-31 13:30 | A.OFFVIS_ITS ---
Vital Signs 08/31/24 13:31 Height 5 ft Weight 161 lb BMI 31.4 BP 138/72 Blood Pressure Location Lt brachial Position Sitting Pulse 61 Pulse Source Pulse Oximeter Intake Visit Reasons: f/u after testing [employer] Specialist Required: No Allergies Penicillins [PENICILLINS] Allergy (Unknown, Verified 08/31/24 13:34) Rash lactose Adverse Reaction (Mild, Verified 08/31/24 13:34) Unknown shellfish Allergy (Mild, Uncoded 08/31/24 13:34) Unknown Medication List - Last Reconciled 09/01/24 by NATHANIEL Alvares acetaminophen 500 mg PO DAILY PRN amlodipine 5 mg PO DAILY apixaban (Eliquis) 5 mg PO BID atorvastatin 40 mg PO BEDTIME blood sugar diagnostic (FreeStyle Lite Strips) Test four times a day or as directed. blood sugar diagnostic (FreeStyle Lite Strips) three times per day blood-glucose meter (FreeStyle Lite Meter kit) As Directed blood-glucose meter (FreeStyle Lite Meter kit) As directed to test blood sugar 3 times per day carvedilol 12.5 mg PO BID cholecalciferol (vitamin D3) 25 mcg PO DAILY dapagliflozin propanediol (Farxiga) 5 mg PO DAILY furosemide (Lasix) 40 mg PO DAILY PRN gabapentin 100 mg PO DAILY gemfibrozil 600 mg PO BID insulin glargine (Lantus Solostar U-100 Insulin) 18 units subcut BEDTIME insulin lispro (Humalog KwikPen (U-100) Insulin) 1 sliding scale dose subcut QIDACHS isosorbide mononitrate ER 30 mg PO DAILY lancets (FreeStyle Lancets) Test four times a day or as directed. lancets (FreeStyle Lancets) Test 3 times per day magnesium hydroxide (Milk of Magnesia) 5 mL PO DAILY PRN melatonin 6 mg PO BEDTIME PRN multivitamin with minerals 1 tab PO DAILY pen needle, diabetic Use four times a day or as directed. tamsulosin (Flomax) 0.8 mg (2 x 0.4 mg) PO BEDTIME trazodone 25 mg PO BEDTIME PRN HPI HPI f/u after testing: Details: Enma Staples is a 74-year-old female past medical history of hypertension, diabetes, heart failure with preserved EF, CVA who presents for follow-up after recent stress test, renal duplex, sleep study and cardiac event monitor. Today she reports she has been feeling well overall. She has been wearing oxygen at night which is new for her. She has no chest discomfort at rest or with activity. She denies having shortness of breath, PND, orthopnea or edema. No palpitations, presyncope, syncope. She did have a mechanical fall with ER evaluation and CTA of the head showing no acute findings. She continues on Eliquis with no signs of bleeding. Daughter is present. She resides [place] [facility]. [facility] Medical History CVA (cerebral vascular accident) (HFpEF) heart failure with preserved ejection fraction Left leg weakness SOB (shortness of breath) Gout of big toe Elevated troponin Bilateral wheezing Leg edema Increasing shortness of breath 2+ pitting edema Cataract Hypertension Gout Surgical History History of cholecystectomy H/O: hysterectomy Social History Household Members: Children Housing: House Do you presently have visiting nurse or other home services: No Alcohol intake: never Comment: refusing alarms Patient Tobacco Use Status: Former Tobacco user Second Hand Smoke Exposure: No Advance Directives Date on File: 04/08/24 service: No Current occupational status: retired Review of Systems Const All systems reviewed & are unremarkable except as noted in HPI and below ENT Denies dizziness Card Denies chest pain, Denies chest pain at rest, Denies chest pain with activity, Denies rapid heart rate, Denies pedal edema, Denies edema, Denies leg edema, Denies lightheadedness, Denies palpitations, Denies dyspnea, Denies dyspnea on exertion and Denies orthopnea Resp Denies cough, Denies dyspnea and Denies dyspnea on exertion GI Denies hematochezia and Denies change in stool character Musc Denies abnormal gait, Denies limited range of motion, Denies muscle cramps, Denies muscle weakness, Denies numbness, Denies radiating pain into limb, Denies stiffness and Denies tingling Neuro Denies abnormal gait, Denies dizziness, Denies numbness and Denies tingling Endo Denies palpitations Physical Exam Vital Signs: Last Vital Signs Pulse 61 08/31/24 13:31 BP 138/72 08/31/24 13:31 BMI result Body Mass Index 31.4 Const Other: Sitting in wheelchair General: cooperative, healthy appearing, comfortable and no acute distress Orientation/consciousness: patient oriented x3 HEENT Head: Yes normal to inspection Neck Neck: Yes normal visual inspection Resp Effort & Inspection: normal respiratory effort Auscultation: clear to auscultation bilaterally, no crackles, no rales, no rhonchi and no wheezes Cardio Jugular venous distension: no JVD Rate: regular rate Rhythm: regular rhythm Heart sounds: S1 normal heart sound present, S2 normal heart sound present, no murmurs and no rubs Neuro General: patient oriented x3 Extrem General: Yes normal to inspection Psych Appearance: grossly normal Mental Status: mental status grossly normal Speech and movement: Normal speech and movement present Assessment & Plan Assessment & Plan (1) (HFpEF) heart failure with preserved ejection fraction: Code(s): I50.30 - Unspecified diastolic (congestive) heart failure Category: Medical Plan: History of heart failure with preserved EF. Echocardiogram from 02/07/24 shows EF 65-70%, severe LVH, normal RV, abnormal diastolic function. Her heart failure was thought to be related to uncontrolled hypertension, LVH. She has been on Lasix with control of symptoms. A nuclear stress test was done 08/17/2024 showing no ischemia, fixed perfusion defect probably from diaphragm attenuation, basal lateral wall can not exclude nontransmural infarct. She had a renal duplex 07/13/2024 showing no evidence of renal artery stenosis. There was an incidental finding of a mass in the splenic henry -copy of this report was given to her daughter who will forward it to her PCP at the [place] [facility]. Patient denies any abdominal type symptoms. She did have a sleep study done on 07/30/2024 which was negative for obstructive sleep apnea however did show nocturnal hypoxia. She has since been started on O2 during the night. For blood pressure she has been on amlodipine, carvedilol and Lasix. Blood pressure today seems adequately controlled at 138/72. Test results reviewed with her in detail. The need for ongoing good blood pressure control discussed. Low-salt diet reviewed. Weight control and increasing physical activity as tolerated recommended. Cardiology follow-up in 6 months, sooner if needed. (2) Hypertension: Code(s): I10 - Essential (primary) hypertension Category: Medical Qualifiers: Hypertension type: unspecified Qualified Code(s): I10 - Essential (primary) hypertension Plan: As above (3) CVA (cerebral vascular accident): Code(s): I63.9 - Cerebral infarction, unspecified Category: Medical Plan: [facility] [place]/02/2024 with inability to walk, leg weakness. A brain MRI did show multiple embolic looking acute right HELENA ischemic infarcts, multiple bilateral small chronic infarcts. She was evaluated by Neurology. Recommendation was for anticoagulation for at least 6 months with cardiac evaluation. She did wear a cardiac event monitor on 07/20/24 420 of the 30 days showing sinus rhythm with average heart rate 63, rare SVE, no atrial fibrillation was seen. She has no reports of heart palpitations. Will have her continue on Eliquis at this time. (4) Nocturnal hypoxemia: Code(s): G47.34 - Idiopathic sleep related nonobstructive alveolar hypoventilation Category: Medical Plan: Now wearing oxygen at night. Plan Time spent on chart review, documentation, interview and assessment Coding Level of Care Code Est Pt Level 4 (23739) Complex EM visit Add On G2211 Diagnoses (HFpEF) heart failure with preserved ejection fraction I50.30 Hypertension, unspecified type I10 Hypertension type: unspecified CVA (cerebral vascular accident) I63.9 Nocturnal hypoxemia G47.34 Time Spent (min) 30
[2024-08-31 13:31] VITALS: BP 138/72; PULSE 61; BMI 31.4
== END 2024-08-31 14:14 | disposition home or self-care (01) ==
LOC: HO.HCS 13:17
PROVIDERS: PCP Nurse Practitioner Primary Care; Visit Provider Nurse Practitioner Family
DX: I50.30 Unspecified diastolic (congestive) heart failure (principal); I10 Essential (primary) hypertension; I63.9 Cerebral infarction, unspecified; G47.34 Idiopathic sleep related nonobstructive alveolar hypoventilation
CPT/HCPCS: 99214; G2211

== ENCOUNTER → 2024-08-31 13:13 | Outpatient (BNVA) | payer MEDICARE, SELFPAY | PROVIDERS: PCP Nurse Practitioner Primary Care; Visit Provider Nurse Practitioner Family | DX: I11.0 Hypertensive heart disease with heart failure (principal); I50.30 Unspecified diastolic (congestive) heart failure; G47.34 Idiopathic sleep related nonobstructive alveolar hypoventilation; Z86.73 Personal history of transient ischemic attack (TIA), and cerebral infarction without residual deficits | CPT/HCPCS: 99212 ==

== ENCOUNTER 2024-10-05 13:31 | Outpatient (AMB) | payer MEDICARE, SELFPAY ==
--- NOTE | 2024-10-05 13:34 | A.OFFVIS_ITS ---
Vital Signs 10/05/24 13:35 Height 5 ft Weight 162 lb 0.636 oz BMI 31.6 BP 150/74 H Blood Pressure Location Rt brachial Position Sitting Pulse 64 Pulse Source Pulse Oximeter Pulse Oximetry (%) 94 Oxygen Delivery Method Room Air Intake Visit Reasons: Nocturnal Hypoxemia Allergies Penicillins [PENICILLINS] Allergy (Unknown, Verified 10/05/24 13:39) Rash lactose Adverse Reaction (Mild, Verified 10/05/24 13:39) Unknown shellfish Allergy (Mild, Uncoded 10/05/24 13:39) Unknown HPI HPI Nocturnal Hypoxemia: Details: Enma Staples is a pleasant 74 year old female, former minimal smoker, with underlying CHF, DMII, HTN, CVA 01/2024 on Eliquis. She was referred by cardiology for pulmonary evaluation after recent home sleep study revealed significant nocturnal hypoxemia, negative for NOE. She reports dyspnea on exertion and occasional wheezing, otherwise denies cough or chest tightness. She reports o rthopnea and occasional BLE edema, using lasix PRN. She is currently residing at a SNF, since February, with the plan to be discharged once her daughter finds housing. She does note that she ambulates with PT at SNF however after approximately 100 yrds becomes dyspneic. At the last visit she was started on supplemental oxygen using nightly with good effect and overall improvements in sleep. PFT and chest CT also ordered which are scheduled in the next few weeks. [facility] Medical History CVA (cerebral vascular accident) (HFpEF) heart failure with preserved ejection fraction Left leg weakness SOB (shortness of breath) Gout of big toe Elevated troponin Bilateral wheezing Leg edema Increasing shortness of breath 2+ pitting edema Cataract Hypertension Gout Surgical History History of cholecystectomy H/O: hysterectomy Social History Household Members: Children Housing: House Do you presently have visiting nurse or other home services: No Alcohol intake: never Comment: refusing alarms Patient Tobacco Use Status: Former Tobacco user Second Hand Smoke Exposure: No Advance Directives Date on File: 04/08/24 service: No Current occupational status: retired Review of Systems Const Denies chills, Denies excessive sweating, Denies fever(s), Denies headache(s) and Denies night sweats Eyes Denies dry eyes, Denies irritation and Denies itchy eyes ENT Reports Normal hearing present, Denies headache(s), Denies nasal congestion, Denies nasal discharge, Denies post nasal drip and Denies sore throat Card Denies chest pain, Denies chest pain at rest, Denies chest pain with activity, Denies claudication and Denies paroxysmal nocturnal dyspnea Resp Denies chest congestion, Denies cough, Denies excessive phlegm production, Denies pain on inspiration, Denies pain with cough and Denies stridor Musc Denies myalgias Neuro Reports Normal hearing present and Denies headache(s) Endo Denies excessive sweating [place]/Lymph Denies lymphadenopathy Aller/Immun Denies itchy eyes and Denies seasonal rhinorrhea Physical Exam Vital Signs: Last Vital Signs Pulse 64 10/05/24 13:35 BP 150/74 H 10/05/24 13:35 Pulse Ox 94 10/05/24 13:35 Oxygen Delivery Method Room Air 10/05/24 13:35 BMI result Body Mass Index 31.6 Const General: cooperative, healthy appearing, comfortable, no acute distress, well developed and alert Nutritional Appearance: obese Orientation/consciousness: patient oriented x3 Limitations: wheelchair HEENT Head: Yes normal to inspection, Yes normocephalic and Yes atraumatic Ears: hearing grossly normal bilaterally and external ears normal Eyes General: appearance normal, both eyes and all related structures Eyelids: Yes eyelids normal Sclerae: sclerae normal EOM: EOMs intact bilaterally Neck Neck: Yes normal visual inspection and Yes no lymphadenopathy Lymphatic: no lymphadenopathy noted Chest Chest palpation & inspection: normal inspection of the chest Resp Effort & Inspection: normal respiratory effort, able to speak in complete sentences, no audible wheezes, no cough, no stridor, not tachypneic, no tripod positioning and no use of accessory muscles Cardio Jugular venous distension: no JVD Rate: regular rate Rhythm: regular rhythm Skin Other: warm, dry General skin exam: no rashes or lesions noted Neuro General: patient oriented x3 Cranial nerves: Yes Normal hearing present Cognition (Neuro): normal cognition Gait exam (Neuro): Normal gait present Extrem General: Yes normal to inspection, Yes capillary refill normal, Yes no clubbing, cyanosis or edema and Yes no pedal edema Psych Appearance: grossly normal and well kempt Speech and movement: Normal speech and movement present and Clear speech present Affect: normal affect Attitude: cooperative Thought process: Normal thought process present Thought content: Normal thought content present Insight: Good insight present (Psych) Judgement: Good judgement present (Psych) Office Procedures 6 Minute Walk Time:: 14:05 SPO2 % at rest: 95 Pulse at rest: 63 SPO2 % during excercise: 97 Pulse during excercise: 78 SPO2 % after excercise: 98 Pulse after excercise: 80 Distance in yards walked: 50 Tyler Score: 4 Performance Observations:: Patient walked on flat ground using a walker slowly. Patient was able to do the entire walk maintaining O2 saturation of 95% or greater and pulse rate of 80 or less. No respiratory distress. Patient did not require supplemental oxygen. [id number] - 6 Minute Walk Assessment & Plan Assessment & Plan (1) Nocturnal hypoxemia: Code(s): G47.34 - Idiopathic sleep related nonobstructive alveolar hypoventilation Category: Medical (2) Dyspnea on exertion: Code(s): R06.09 - Other forms of dyspnea Category: Medical (3) (HFpEF) heart failure with preserved ejection fraction: Code(s): I50.30 - Unspecified diastolic (congestive) heart failure Category: Medical Plan Prior home sleep study revealed nocturnal hypoxemia, <88% for 321 minutes, lowest 72%. Will send for in lab PSG to ensure accuracy of testing as no NOE was noted on home sleep study. Advised to continue using 2L of supplemental oxygen NOC and after PSG, will send for overnight if negative for NOE. 6MWT performed today and patient does not require supplemental oxygen with exertion. Dyspnea is likely related to deconditioning however awaiting chest CT and PFT. All questions were answered and patient is in agreement of plan. Will follow-up in 6-8 weeks or sooner if needed. Orders: Orders AMB 6 minute walk Today G47.34 - Idiopathic sleep related nonobstructive alveolar hypoventilation, R06.09 - Other forms of dyspnea RT PSG in-lab sleep study Today G47.34 - Idiopathic sleep related nonobstructiv e alveolar hypoventilation, R40.0 - Somnolence Coding Level of Care Code Est Pt Level 4 (38213) Diagnoses Nocturnal hypoxemia G47.34 Dyspnea on exertion R06.09 (HFpEF) heart failure with preserved ejection fraction I50.30 CPT Codes Coding ([id number])
[2024-10-05 13:35] VITALS: BP 150/74; PULSE 64; O2SAT 94; BMI 31.6
[2024-10-05 14:36] VITALS: PULSE 63; O2SAT 95
== END 2024-10-05 14:17 | disposition home or self-care (01) ==
PROVIDERS: PCP Nurse Practitioner Primary Care; Visit Provider Nurse Practitioner Family
DX: G47.34 Idiopathic sleep related nonobstructive alveolar hypoventilation (principal); R06.09 Other forms of dyspnea; I50.30 Unspecified diastolic (congestive) heart failure
CPT/HCPCS: 94618; 99214

== ENCOUNTER → 2024-10-05 13:31 | Outpatient (BNVA) | payer MEDICARE, SELFPAY | PROVIDERS: PCP Nurse Practitioner Primary Care; Visit Provider Nurse Practitioner Family | DX: G47.34 Idiopathic sleep related nonobstructive alveolar hypoventilation (principal); R06.09 Other forms of dyspnea; I50.30 Unspecified diastolic (congestive) heart failure | CPT/HCPCS: 94618; 99212 ==

== ENCOUNTER 2024-10-08 11:08 | Outpatient (AMB) | payer MEDICARE, SELFPAY ==
--- NOTE | 2024-10-08 06:02 | A.OFFVIS_ITS ---
Intake Visit Reasons: 3m follow up Intake Note: Patient is Present for Follow Up PVR Urology Medication: Tamsulosin Antibiotic Allergies: Penicillins Blood Thinners: Eliquis Last PVR:0ML Todays PVR: 0ml Symptoms? No recent burning when urinating. Wears briefs and will have some leakage Tenter Frame Back Tender Required: No Print Line Operator: Print Line Operator Present Accompanied by: Daughter Allergies Penicillins [PENICILLINS] Allergy (Unknown, Verified 10/08/24 13:10) Rash lactose Adverse Reaction (Mild, Verified 10/08/24 13:10) Unknown shellfish Allergy (Mild, Uncoded 10/08/24 12:06) Unknown Medication List - Last Reconciled 10/08/24 by Errol Grissom MD acetaminophen 500 mg PO DAILY PRN amlodipine mg PO apixaban (Eliquis) 5 mg PO BID atorvastatin 40 mg PO BEDTIME blood sugar diagnostic (FreeStyle Lite Strips) Test four times a day or as directed. blood sugar diagnostic (FreeStyle Lite Strips) three times per day blood-glucose meter (FreeStyle Lite Meter kit) As Directed blood-glucose meter (FreeStyle Lite Meter kit) As directed to test blood sugar 3 times per day carvedilol 25 mg PO BID cholecalciferol (vitamin D3) 25 mcg PO DAILY dapagliflozin propanediol (Farxiga) 5 mg PO DAILY furosemide (Lasix) 40 mg PO DAILY PRN gabapentin 100 mg PO DAILY gemfibrozil 600 mg PO BID insulin glargine (Lantus Solostar U-100 Insulin) 18 units subcut BEDTIME insulin lispro (Humalog KwikPen (U-100) Insulin) 1 sliding scale dose subcut QIDACHS isosorbide mononitrate ER 30 mg PO DAILY lancets (FreeStyle Lancets) Test four times a day or as directed. lancets (FreeStyle Lancets) Test 3 times per day magnesium hydroxide (Milk of Magnesia) 5 mL PO DAILY PRN melatonin 6 mg PO BEDTIME PRN multivitamin with minerals 1 tab PO DAILY pen needle, diabetic Use four times a day or as directed. tamsulosin (Flomax) 0.4 mg PO BEDTIME trazodone 25 mg PO BEDTIME PRN HPI Comments Details: 10/08/2024 Enma Staples is here with her daughter, who states that she is still in a nursing facility. She was initially evaluated in 04/16/2024 at [facility] for urinary retention and treated for UTI discharged with a Padilla and started on tamsulosin, she was seen in follow-up in the office 06/25/2024. She presents today and states that she needs help to get to the bathroom and will get an urge but by the time someone is available to help her she has wet her depends. Her daughter states that prior to her stroke she did have some urine incontinence but was not a significant problem. Urinalysis no signs of infection. The patient denies dysuria. I will decrease dose of tamsulosin from 0.8 mg to 0.4 mg. I have written in the consult notes to administer timed voiding every 3 hours while patient is awake. Since her visit in May with Urology, she was seen by Dr. Prajapati, cardiology a renal ultrasound was ordered which I reviewed possible small bilateral stones 2 and 3 mm and simple cyst. 07/13/24--renal ultrasound-- Small right kidney with cortical thinning. Small nonobstructing bilateral renal calculi. Review of chart: 06/25/2024 Enma Gaston is a 74 years old woman with past medical history significant for type 2 diabetes mellitus on insulin, recent CVA with left hemiparesis on Eliquis, CKD, hyperlipidemia and essential hypertension, who I initially evaluated in consultation in March 2024 at [facility]. She had urinary retention she was treated for a UTI. She was discharged with padilla amd was started tamsulosin. She is currently voiding. Bladder scan PVR is minimal. She is unable to give urine sample today. Will continue to monitor PVR, cont tamsulosin. [facility] Medical History CVA (cerebral vascular accident) (HFpEF) heart failure with preserved ejection fraction Left leg weakness SOB (shortness of breath) Gout of big toe Elevated troponin Bilateral wheezing Leg edema Increasing shortness of breath 2+ pitting edema Cataract Hypertension Gout Surgical History History of cholecystectomy H/O: hysterectomy Social History Household Members: Children Housing: House Do you presently have visiting nurse or other home services: No Alcohol intake: never Comment: refusing alarms Patient Tobacco Use Status: Former Tobacco user Second Hand Smoke Exposure: No Advance Directives Date on File: 04/08/24 service: No Current occupational status: retired Review of Systems Const All systems reviewed & are unremarkable except as noted in HPI and below Reports no additional complaints Eyes Reports no additional complaints ENT Reports no additional complaints Card Reports no additional complaints Resp Reports no additional complaints GI Reports no additional complaints Reports as per HPI Musc Reports no additional complaints Skin/Breast Reports system reviewed and no additional complaints, except as documented Neuro Reports no additional complaints Psych Reports no additional complaints Endo Reports no additional complaints [place]/Lymph Reports no additional complaints Aller/Immun Reports no additional complaints Office Procedures Post Void Residual Post Residual Void Post Void Residual (PVR): 0 [id number] Void Residual by ultrasound Results AMB Urinalysis, Automated UA Leukoctes 15 Mike/uL Last Edit by Julia Cohen [facility] on 10/08/24 12:07 UA Nitrite Negative Last Edit by Julia Cohen [facility] on 10/08/24 12:07 UA Urobilinogen 0.2 mg/dL Last Edit by Julia Cohen [facility] on 10/08/24 12:0 7 UA Protein 300 mg/dL Last Edit by Julia Cohen [facility] on 10/08/24 12:07 UA pH 6.0 Last Edit by Julia Cohen [facility] on 10/08/24 12:07 UA Blood 25 [place]/uL Last Edit by Julia Cohen [facility] on 10/08/24 12:07 UA Specific [place] 1.015 Last Edit by Julia Cohen [facility] on 10/08/24 12: 07 UA Ketone Negative Last Edit by Julia Cohen [facility] on 10/08/24 12:07 UA Bilirubin 0 mg/dL Last Edit by Julia Cohen [facility] on 10/08/24 12:07 UA Glucose 1000 mg/dL Last Edit by Julia Cohen [facility] on 10/08/24 12:07 Results Reviewed Results Reviewed: Date of Service: 07/13/24 US RETROPERITONEAL COMPLETE (RENAL) CLINICAL INFORMATION: Hypertension. COMPARISON: None available. TECHNIQUE: Ultrasound of the kidneys was performed along with color flow Doppler imaging and velocity measurements in the proximal mid and distal renal arteries. Aortic velocities were measured and renal/aortic ratios were calculated. Segmental renal indices were calculated. FINDINGS: RIGHT KIDNEY: 8.1 x 3.5 x 4.4 cm (SAG x AP x TRV). The right kidney is small with some cortical calcification and cortical thinning. Mid renal echogenic focus measuring 3 mm could represent a nonobstructing stone. No concerning solid focal parenchymal lesions. No hydronephrosis. LEFT KIDNEY: 10.3 x 5.4 x 4.2 cm (SAG x AP x TRV). The kidney is normal in size, contour, and echogenicity. Renal cortical thickness is normal. There is an upper pole 4 mm echogenic focus consistent with a nonobstructing stone. There is no hydronephrosis. A benign mid renal 0.6 cm Bosniak class I renal cyst is noted which requires no additional imaging or followup. No solid renal masses are seen. ADDITIONAL FINDINGS: In the region of the splenic henry, there is an ovoid vascular mass present measuring 4.8 x 6.5 x 3.7 cm which was also seen previously. DOPPLER EXAM: Velocity measurements in the proximal mid and distal renal arteries are normal. Velocity in the aorta is normal and, therefore, the renal aortic ratios are normal. Segmental resistive indices are all within normal limits aside from some minimal elevation on the left with a maximum of 0.84 (upper limits of normal is 0.80). IMPRESSION: 1. Small right kidney with cortical thinning. 2. Small nonobstructing bilateral renal calculi. 3. No convincing evidence to suggest renovascular hypertension. 4. Mass in splenic henry may be accessory splenic tissue or a splenule. Further workup would require cross-sectional imaging such as CT or MRI. I think MRI, even without contrast would be the exam of choice. Assessment & Plan Assessment & Plan (1) Urinary retention: Comment: resolved, currently on flomax Code(s): R33.9 - Retention of urine, unspecified Category: Medical (2) Urinary urgency: Code(s): R39.15 - Urgency of urination Category: Medical (3) History of UTI: Code(s): Z87.440 - Personal history of urinary (tract) infections Category: Medical (4) Bilateral kidney stones: Code(s): N20.0 - Calculus of kidney Category: Medical Plan Will continue to monitor PVR, cont tamsulosin. Orders: Orders AMB Post Void Residual by ultrasound Today R39.15 - Urgency of urination AMB Urinalysis Automated Today Z13.9 - Encounter for screening, unspecified Medications: New tamsulosin (Flomax) 0.4 mg PO BEDTIME 30 caps 5RF Discontinued tamsulosin (Flomax) Discontinued Reason: Doctor's Order 0.8 mg (2 x 0.4 mg) PO BEDTIME 60 caps 0RF Patient Instructions: The patient had an opportunity to ask questions regarding treatment plan. The patient expressed understanding and agreement with the above treatment plan. The patient is aware they should contact our office by phone for worsening of their current condition or the appearance of new symptoms. Compliance is encouraged with any medications and followup testing that is ordered. It is a privilege to be allowed the opportunity to participate in the urologic care of your patient. If you have any questions or concerns regarding treatment for the above conditions please do not hesitate to contact me. The office telephone contact is [phone]. This note is constructed in part using voice recognition software. While every effort has been made to ensure accuracy cardiology teacher errors may have been included. Yours sincerely, Errol Grissom MD Coding Level of Care Code Est Pt Level 4 (75667) Diagnoses Urinary retention R33.9 Urinary urgency R39.15 History of UTI Z87.440 Bilateral kidney stones N20.0 CPT Codes Post Residual Void - PVR CPT Code: 79856-Qcdz Void Residual by ultrasound ([id number])
== END 2024-10-08 12:20 | disposition home or self-care (01) ==
PROVIDERS: PCP Nurse Practitioner Primary Care; Visit Provider Urology
DX: R33.9 Retention of urine, unspecified (principal); R39.15 Urgency of urination; Z87.440 Personal history of urinary (tract) infections; N20.0 Calculus of kidney; Z13.9 Encounter for screening, unspecified
CPT/HCPCS: 99214

== ENCOUNTER → 2024-10-08 11:08 | Outpatient (BNVA) | payer MEDICARE, SELFPAY | PROVIDERS: PCP Nurse Practitioner Primary Care; Visit Provider Urology | DX: N17.9 Acute kidney failure, unspecified (principal); N18.9 Chronic kidney disease, unspecified; R33.9 Retention of urine, unspecified; R39.15 Urgency of urination; R20.0 Anesthesia of skin; Z87.440 Personal history of urinary (tract) infections | CPT/HCPCS: 51798; 81003; 99212 ==

== ENCOUNTER 2024-10-08 13:00 | Outpatient (AMB) | payer MEDICARE, MEDICAID, SELFPAY ==
[2024-10-08 13:07] VITALS: BP 130/72; PULSE 61; O2SAT 94; BMI 31.6
--- NOTE | 2024-10-08 13:07 | HO.NEPHOV_ITS ---
Vital Signs 10/08/24 13:07 Height 5 ft Weight 162 lb BMI 31.6 BP 130/72 Blood Pressure Location Rt brachial Position Sitting Pulse 61 Pulse Source Pulse Oximeter Pulse Oximetry (%) 94 Oxygen Delivery Method Room Air Intake Visit Reasons: 4 mon follow up/ Conf Stringed Instrument Repairer Required: No Accompanied by: Daughter Allergies Penicillins [PENICILLINS] Allergy (Unknown, Verified 10/08/24 13:10) Rash lactose Adverse Reaction (Mild, Verified 10/08/24 13:10) Unknown shellfish Allergy (Mild, Uncoded 10/08/24 12:06) Unknown Medication List - Last Reconciled 10/08/24 by Cristhian Dolan MD acetaminophen 500 mg PO DAILY PRN amlodipine mg PO apixaban (Eliquis) 5 mg PO BID atorvastatin 40 mg PO BEDTIME blood sugar diagnostic (FreeStyle Lite Strips) Test four times a day or as directed. blood sugar diagnostic (FreeStyle Lite Strips) three times per day blood-glucose meter (FreeStyle Lite Meter kit) As Directed blood-glucose meter (FreeStyle Lite Meter kit) As directed to test blood sugar 3 times per day carvedilol 25 mg PO BID cholecalciferol (vitamin D3) 25 mcg PO DAILY dapagliflozin propanediol (Farxiga) 5 mg PO DAILY furosemide (Lasix) 40 mg PO DAILY PRN gabapentin 100 mg PO DAILY gemfibrozil 600 mg PO BID insulin glargine (Lantus Solostar U-100 Insulin) 18 units subcut BEDTIME insulin lispro (Humalog KwikPen (U-100) Insulin) 1 sliding scale dose subcut QIDACHS isosorbide mononitrate ER 30 mg PO DAILY lancets (FreeStyle Lancets) Test four times a day or as directed. lancets (FreeStyle Lancets) Test 3 times per day magnesium hydroxide (Milk of Magnesia) 5 mL PO DAILY PRN melatonin 6 mg PO BEDTIME PRN multivitamin with minerals 1 tab PO DAILY pen needle, diabetic Use four times a day or as directed. sodium bicarbonate 650 mg PO BID tamsulosin (Flomax) 0.4 mg PO BEDTIME trazodone 25 mg PO BEDTIME PRN HPI Comments Details: 73-year-old woman with a history of longstanding diabetes mellitus for more than 20 years. She was recently hospitalized and was found to have acute kidney injury. During workup she was found to have about 5 g of proteinuria. At the time of discharge serum creatinine decreased to 2.8 mg/dL. She appeared euvolemic. She was on valsartan and Jardiance which were placed on hold. Today she was accompanied by her daughter. Blood pressure is still suboptimal blood sugar is suboptimal. She has no shortness of breath at rest. She has shortness of breath on exertion. no nausea or vomiting. No urinary symptoms. 10/08/24 Seen by And cardiology Sleep apnea requiring O2 [facility] Medical History CVA (cerebral vascular accident) (HFpEF) heart failure with preserved ejection fraction Left leg weakness SOB (shortness of breath) Gout of big toe Elevated troponin Bilateral wheezing Leg edema Increasing shortness of breath 2+ pitting edema Cataract Hypertension Gout Surgical History History of cholecystectomy H/O: hysterectomy Social History Household Members: Children Housing: House Do you presently have visiting nurse or other home services: No Alcohol intake: never Comment: refusing alarms Patient Tobacco Use Status: Former Tobacco user Second Hand Smoke Exposure: No Advance Directives Date on File: 04/08/24 service: No Current occupational status: retired Physical Exam Vital Signs: Last Vital Signs Pulse 61 10/08/24 13:07 BP 130/72 10/08/24 13:07 Pulse Ox 94 10/08/24 13:07 Oxygen Delivery Method Room Air 10/08/24 13:07 BMI result Body Mass Index 31.6 Results AMB Urinalysis, Automated UA Leukoctes 15 Mike/uL Last Edit by NILSON Kumar on 10/08/24 12:07 UA Nitrite Negative Last Edit by NILSON Kumar on 10/08/24 12:07 UA Urobilinogen 0.2 mg/dL Last Edit by NILSON Kumar on 10/08/24 12:0 7 UA Protein 300 mg/dL Last Edit by NILSON Kumar on 10/08/24 12:07 UA pH 6.0 Last Edit by ENRIQUE KumarA on 10/08/24 12:07 UA Blood 25 [place]/uL Last Edit by ENRIQUE KumarA on 10/08/24 12:07 UA Specific [place] 1.015 Last Edit by Julia Cohen, RMA on 10/08/24 12: 07 UA Ketone Negative Last Edit by ENRIQUE KumarA on 10/08/24 12:07 UA Bilirubin 0 mg/dL Last Edit by Julia Cohen, RMA on 10/08/24 12:07 UA Glucose 1000 mg/dL Last Edit by ENRIQUE KumarA on 10/08/24 12:07 Results Reviewed Nephrology Results: Hgb 9.8 g/dl (12.0-16.0) L 08/17/24 WBC 8.9 X10*3/uL (4.8-10.8) 08/17/24 Plt Count 218 X10*3/uL (160-400) 08/17/24 Sodium 142 mmol/L (135-145) 08/15/24 Potassium 4.6 mmol/L (3.3-5.1) 08/15/24 Chloride 111 mmol/L (96-108) H 08/15/24 Carbon Dioxide 21 mmol/L (22-29) L 08/15/24 BUN 34 mg/dL (9-16) H 08/15/24 Creatinine 1.76 mg/dL (0.5-1.4) H 08/15/24 Calcium 9.7 mg/dL (8.4-10.2) 08/15/24 Assessment & Plan Assessment & Plan (1) Acute kidney injury superimposed on chronic kidney disease: Code(s): N17.9 - Acute kidney failure, unspecified; N18.9 - Chronic kidney disease, unspecified Category: Medical Plan 73-year-old woman with chronic kidney disease. She has proteinuria most likely due to underlying diabetic nephropathy. 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 Baseline creatinine is around 2.2 mg/dL. She sustained DANISH due to hypoperfusion. Renal function has improved and close to baseline. Creatinine at baseline with eGFR of 28 ml/mt At this point the goal is to slow the porgression of kidney disease Continue to avoid nephrotoxic agents. Agree with SGLT-2 inhibitor We discussed importance of tight control of blood sugar and blood pressure to slow the portion disease. BP is well controlled Anemia due to underlying chronic kidney disease. No absolute indication for Epogen yet She will follow closely. Splenic mass- follow with PCP Coding Level of Care Code Est Pt Level 4 (10485) Diagnoses Acute kidney injury superimposed on chronic kidney disease N17.9; N18.9
== END 2024-10-08 13:30 | disposition home or self-care (01) ==
PROVIDERS: PCP Nurse Practitioner Primary Care; Visit Provider Internal Medicine Hypertension Specialist
DX: N17.9 Acute kidney failure, unspecified (principal); E11.22 Type 2 diabetes mellitus with diabetic chronic kidney disease; N18.9 Chronic kidney disease, unspecified
CPT/HCPCS: 99214

== ENCOUNTER 2024-10-22 08:41 | Outpatient (REF) | payer MEDICARE, MEDICAID, SELFPAY ==
--- NOTE | 2024-10-22 09:37 | PFT_ITS ---
Flows: FEV1: 75 % of predicted at 1.20 L FVC: 88 % of predicted at 1.74 L FEV1/FVC: 69 % Bronchodilator response: Present Volumes: Total lung capacity: 99 % of predicted at 4.10 L Residual volume: 147 % of predicted at 2.47 L Slow vital capacity: 67 % of predicted at 1.64 L Expiratory reserve volume: 49 % of predicted at 0.23 L Diffusion capacity: Moderately decreased, adjusts to being mildly decreased after correction for alveolar ventilation. Impression: Moderate obstructive ventilatory defect with positive bronchodilator response. Increased residual volume suggests air trapping. Decreased expiratory reserve volume suggests extrathoracic restriction likely secondary to abdominal obesity. Decreased diffusion capacity suggests emphysema. MTDD
== END 2024-10-22 08:42 | disposition home or self-care (01) ==
LOC: HO.CT 08:41
PROVIDERS: Visit Provider Nurse Practitioner Family
DX: R06.09 Other forms of dyspnea (principal); G47.34 Idiopathic sleep related nonobstructive alveolar hypoventilation
CPT/HCPCS: 71250

== ENCOUNTER → 2024-10-22 08:48 | Outpatient (BNV) | payer MEDICARE, MEDICAID, SELFPAY | PROVIDERS: Visit Provider Radiology Diagnostic Radiology | DX: G47.34 Idiopathic sleep related nonobstructive alveolar hypoventilation (principal) | CPT/HCPCS: 71250 ==

== ENCOUNTER → 2024-10-22 09:37 | Outpatient (BNV) | payer MEDICARE, MEDICAID, SELFPAY | PROVIDERS: Visit Provider Internal Medicine Pulmonary Disease | DX: R06.09 Other forms of dyspnea (principal) | CPT/HCPCS: 94060; 94727; 94729 ==

== ENCOUNTER → 2024-11-10 19:30 | Outpatient (REF) | payer MEDICARE, MEDICAID, SELFPAY | LOC: HO.SL 19:30 | PROVIDERS: Visit Provider Nurse Practitioner Family | DX: G47.34 Idiopathic sleep related nonobstructive alveolar hypoventilation (principal); R40.0 Somnolence | CPT/HCPCS: 95810 ==

== ENCOUNTER → 2024-11-10 21:30 | Outpatient (BNV) | payer MEDICARE, MEDICAID, SELFPAY | PROVIDERS: Visit Provider Internal Medicine | DX: G47.33 Obstructive sleep apnea (adult) (pediatric) (principal) | CPT/HCPCS: 95810 ==

== ENCOUNTER 2024-11-23 13:11 | Outpatient (AMB) | payer MEDICARE, MEDICAID, SELFPAY ==
--- NOTE | 2024-11-23 13:32 | A.OFFVIS_ITS ---
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 No complaints. Last Pap/HPV was many years ago, the patient is status post hysterectomy for benign reasons, no history of abnormal Pap smears Last Mammogram was many years ago Last Colonoscopy was many years ago No previous cream DEXA scan [facility] Medical History CVA (cerebral vascular accident) (HFpEF) heart failure with preserved ejection fraction Left leg weakness SOB (shortness of breath) Gout of big toe Elevated troponin Bilateral wheezing Leg edema Increasing shortness of breath 2+ pitting edema Cataract Hypertension Gout Surgical History History of cholecystectomy H/O: hysterectomy Social History Household Members: Children Housing: House Do you presently have visiting nurse or other home services: No Alcohol intake: never Comment: refusing alarms Patient Tobacco Use Status: Former Tobacco user Second Hand Smoke Exposure: No Advance Directives Date on File: 04/08/24 service: No Current occupational status: retired Female Reproductive History Menstrual Age of Menarche: 20 Total pregnancies: 2 Full term: 2 History of abnormal pap smear: No Review of Systems Const All systems reviewed & are unremarkable except as noted in HPI and below Card Reports as per HPI and Reports no additional complaints Resp Reports as per HPI and Reports no additional complaints GI Reports as per HPI and Reports no additional complaints Reports as per HPI Physical Exam Vital Signs: Last Vital Signs BP 132/82 11/23/24 13:45 BMI result Body Mass Index 32.0 Const General: cooperative, healthy appearing and comfortable General: Yes bladder normal to palpation External Female Exam: No lesion Speculum Exam - Vagina: normal appearance of the vagina, normal vaginal discharge and not erythematous Speculum Exam - Cervix: Cervix absent Bimanual exam- vagina & uterus: bladder normal to palpation and uterus absent Bimanual Exam- Adnexa, other: Other (No masses detected) Assessment & Plan Assessment & Plan (1) Well woman exam: Code(s): Z01.419 - Encounter for gynecological examination (general) (routine) without abnormal findings Category: Medical Plan: Co testing not indicated since the patient 's age is status post hysterectomy and above 65 with no history of abnormal Pap smears last 25 years. Counseled the patient about the recommended dietary allowance of 1200 mg of Calcium & 800 IU of vitamin D. Mammogram ordered. Referred her for screening colonoscopy done. Will order DEXA scan . The patient was instructed to perform monthly self-breast exams and to schedule a 2 week DEXA scan follow-up appointment and an annual exam in a year; All questions answered and the patient verbalized understanding. Orders: Orders XR DEXA axial skeleton Today Z78.0 - Asymptomatic menopausal state MM tomosynthesis screening BI Today Z12.31 - Encounter for screening mammogram for malignant neoplasm of breast Referrals Gastroenterology Referral Z12.11 - Encounter for screening for malignant neoplasm of colon Coding Level of Care Code New Pt Prev Care >65yr (56751) Diagnoses Well woman exam Z01.419
[2024-11-23 13:45] VITALS: BP 132/82; BMI 32.0
== END 2024-11-23 14:11 | disposition home or self-care (01) ==
PROVIDERS: Referring Provider Obstetrics & Gynecology; Visit Provider Obstetrics & Gynecology
DX: Z01.419 Encounter for gynecological examination (general) (routine) without abnormal findings (principal)
CPT/HCPCS: G0101

== ENCOUNTER → 2024-11-23 13:11 | Outpatient (BNVA) | payer MEDICARE, MEDICAID, SELFPAY | PROVIDERS: Visit Provider Obstetrics & Gynecology | DX: Z01.419 Encounter for gynecological examination (general) (routine) without abnormal findings (principal); Z78.0 Asymptomatic menopausal state | CPT/HCPCS: G0101 ==

== ENCOUNTER 2024-12-28 10:38 | Outpatient (AMB) | payer MEDICARE, MEDICAID, SELFPAY ==
[2024-12-28 10:44] VITALS: BP 120/66; PULSE 64; O2SAT 94; BMI 32.5
--- NOTE | 2024-12-28 10:44 | MHC.OFFVIS ---
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 blood sugar diagnostic (FreeStyle Lite Strips) three times per day blood-glucose meter (FreeStyle Lite Meter kit) As Directed blood-glucose meter (FreeStyle Lite Meter kit) As directed to test blood sugar 3 times per day carvedilol 25 mg PO BID cholecalciferol (vitamin D3) 25 mcg PO DAILY dapagliflozin propanediol (Farxiga) 5 mg PO DAILY furosemide (Lasix) 40 mg PO DAILY PRN gabapentin 100 mg PO DAILY gemfibrozil 600 mg PO BID insulin glargine (Lantus Solostar U-100 Insulin) 18 units subcut BEDTIME insulin lispro (Humalog KwikPen (U-100) Insulin) 1 sliding scale dose subcut QIDACHS isosorbide mononitrate ER 30 mg PO DAILY lancets (FreeStyle Lancets) Test four times a day or as directed. lancets (FreeStyle Lancets) Test 3 times per day magnesium hydroxide (Milk of Magnesia) 5 mL PO DAILY PRN melatonin 6 mg PO BEDTIME PRN multivitamin with minerals 1 tab PO DAILY pen needle, diabetic Use four times a day or as directed. sodium bicarbonate 650 mg PO BID tamsulosin (Flomax) 0.4 mg PO BEDTIME trazodone 25 mg PO BEDTIME PRN HPI HPI Nocturnal Hypoxemia: Details: Enma Staples is a pleasant 74 year old female, former minimal smoker, with underlying CHF, DMII, HTN, CVA 01/2024 on Eliquis. She is currently residing at a SNF, since February, with the plan to be discharged once her daughter finds housing. She was initially referred by cardiology for pulmonary evaluation after recent home sleep study revealed significant nocturnal hypoxemia <88% for 321 minutes, negative for NOE. She continues to report dyspnea on exertion and occasional wheezing, otherwise denies cough or chest tightness. Today she presents to review CT chest, sleep study and PFT. She denies any visits to urgent care or hospitalizations related to respiratory distress since the last visit. [facility] Medical History CVA (cerebral vascular accident) (HFpEF) heart failure with preserved ejection fraction Left leg weakness SOB (shortness of breath) Gout of big toe Elevated troponin Bilateral wheezing Leg edema Increasing shortness of breath 2+ pitting edema Cataract Hypertension Gout Surgical History History of cholecystectomy H/O: hysterectomy Social History Household Members: Children Housing: House Do you presently have visiting nurse or other home services: No Alcohol intake: never Comment: refusing alarms Patient Tobacco Use Status: Former Tobacco user Second Hand Smoke Exposure: No Advance Directives Date on File: 04/08/24 service: No Current occupational status: retired Female Reproductive History Menstrual Age of Menarche: 20 Review of Systems Const Denies chills, Denies excessive sweating, Denies fever(s), Denies headache(s) and Denies night sweats Eyes Denies dry eyes, Denies irritation and Denies itchy eyes ENT Reports Normal hearing present, Denies headache(s), Denies nasal congestion, Denies nasal discharge, Denies post nasal drip and Denies sore throat Card Denies chest pain, Denies chest pain at rest, Denies chest pain with activity, Denies claudication and Denies paroxysmal nocturnal dyspnea Resp Denies chest congestion, Denies cough, Denies excessive phlegm production, Denies pain on inspiration, Denies pain with cough and Denies stridor Musc Denies myalgias Neuro Reports Normal hearing present and Denies headache(s) Endo Denies excessive sweating [place]/Lymph Denies lymphadenopathy Aller/Immun Denies itchy eyes and Denies seasonal rhinorrhea Physical Exam Vital Signs: Last Vital Signs Pulse 64 12/28/24 10:44 BP 120/66 12/28/24 10:44 Pulse Ox 94 12/28/24 10:44 Oxygen Delivery Method Room Air 12/28/24 10:44 BMI result Body Mass Index 32.5 Const General: cooperative, healthy appearing, comfortable, no acute distress, well developed and alert Nutritional Appearance: obese Orientation/consciousness: patient oriented x3 Limitations: wheelchair HEENT Head: Yes normal to inspection, Yes normocephalic and Yes atraumatic Ears: hearing grossly normal bilaterally and external ears normal Eyes General: appearance normal, both eyes and all related structures Eyelids: Yes eyelids normal Sclerae: sclerae normal EOM: EOMs intact bilaterally Neck Neck: Yes normal visual inspection and Yes no lymphadenopathy Lymphatic: no lymphadenopathy noted Chest Chest palpation & inspection: normal inspection of the chest Resp Effort & Inspection: normal respiratory effort, able to speak in complete sentences, no audible wheezes, no cough, no stridor, not tachypneic, no tripod positioning and no use of accessory muscles Cardio Jugular venous distension: no JVD Rate: regular rate Rhythm: regular rhythm Skin Other: warm, dry General skin exam: no rashes or lesions noted Neuro General: patient oriented x3 Cranial nerves: Yes Normal hearing present Cognition (Neuro): normal cognition Gait exam (Neuro): Normal gait present Extrem General: Yes normal to inspection, Yes capillary refill normal, Yes no clubbing, cyanosis or edema and Yes no pedal edema Psych Appearance: grossly normal and well kempt Speech and movement: Normal speech and movement present and Clear speech present Affect: normal affect Attitude: cooperative Thought process: Normal thought process present Thought content: Normal thought content present Insight: Good insight present (Psych) Judgement: Good judgement present (Psych) Results Reviewed Results Reviewed: [address] [address] [address] Scan Report Signed Patient: Enma Gaston MR#: [id number] : 1950 Acct:[id number] Age/Sex: 74 / F ADM Date: 10/22/24 Loc: HO.CT Attending Dr: Glenys Bunn ELEVATOR OPERATOR SERVICE Ordering Physician: Glenys Bunn NP Date of Service: 10/22/24 Procedure(s): CT chest wo IV con Accession Number(s): [id number] cc: Glenys Bunn MICHAEL~ Report Number: [id number]: Total DLP = 191.00 mGy-cm EXAMINATION: CT CHEST WITHOUT IV CONTRAST INDICATION: G47.34 - Idiopathic sleep related nonobstructive alveolar hypoventilation COMPARISON: Correlation is made with an AP portable view of the chest dated 02/06/2024. TECHNIQUE: Helical CT scan of the chest was performed without intravenous contrast. Coronal and sagittal reformatted images were generated and reviewed. This CT exam was performed with one or more of the following dose reduction techniques: automated exposure control, adjustment of the mA and/or kV according to patient size, use of iterative reconstruction technique. DLP: 191 mGy-cm CHEST: THYROID: The thyroid is unremarkable. LUNGS: There are hypoventilatory changes with dependent atelectasis bilaterally. There is subsegmental atelectasis versus scarring at both lung bases. There are no focal airspace opacities or pulmonary nodules. MEDIASTINUM: There is no mediastinal lymphadenopathy. BRIANA: Evaluation of the hilar regions is limited by lack of intravenous contrast material. CARDIOVASCULATURE: The heart is mildly enlarged. There is no pericardial effusion. The thoracic aorta is normal in caliber. DEGREE OF CORONARY CALCIFICATION: moderate PLEURA: There is no pleural effusion. No pneumothorax. MAIN AIRWAYS: The mainstem bronchi and proximal branches are patent. AXILLA: There is no axillary lymphadenopathy. BONES AND SOFT TISSUES: A small sclerotic focus is noted in the T4 vertebral body which likely represents a bone island. There is degenerative disc disease of the spine. UPPER ABDOMEN: The visualized portions of the liver, spleen, and adrenals have an unremarkable appearance. CT/CT chest wo IV con IMPRESSION: Mild cardiomegaly. Hypoventilatory changes with subsegmental atelectasis versus scarring at both lung bases. 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 Increased residual volume suggests air trapping. Decreased expiratory reserve volume suggests extrathoracic restriction likely secondary to abdominal obesity. Decreased diffusion capacity suggests emphysema however not noted on chest CT. Will empirically start Breo. Discussed importance of good oral hygiene to prevent thrush. CT chest revealed mild cardiomegaly. Hypoventilatory changes with subsegmental atelectasis versus scarring at both lung bases. Reviewed PSG which was negative for NOE, continues to reveal nocturnal hypoxemia, <88% 19 minutes. Advised to continue 2L NOC. Encouraged patient and daughter to discuss lasix dosing with both cardiology and nephrology, as lasix was not on current medication list. All questions were answered and patient is in agreement of plan. Will follow-up in 6-8 weeks or sooner if needed. Medications: New fluticasone furoate-vilanterol 100-25 mcg/dose (Breo Ellipta) 1 inh inhalation DAILY 60 ea 6RF Coding Level of Care Code Est Pt Level 4 (56081) Diagnoses Asthma J45.909 Nocturnal hypoxemia G47.34 Dyspnea on exertion R06.09 (HFpEF) heart failure with preserved ejection fraction I50.30
== END 2024-12-28 11:37 | disposition home or self-care (01) ==
PROVIDERS: PCP Nurse Practitioner Primary Care; Visit Provider Nurse Practitioner Family
DX: J45.909 Unspecified asthma, uncomplicated (principal); G47.34 Idiopathic sleep related nonobstructive alveolar hypoventilation; R06.09 Other forms of dyspnea; I50.30 Unspecified diastolic (congestive) heart failure
CPT/HCPCS: 99214

== ENCOUNTER → 2024-12-28 10:38 | Outpatient (BNVA) | payer MEDICARE, MEDICAID, SELFPAY | PROVIDERS: PCP Nurse Practitioner Primary Care; Visit Provider Nurse Practitioner Family | DX: J45.909 Unspecified asthma, uncomplicated (principal); G47.34 Idiopathic sleep related nonobstructive alveolar hypoventilation; R06.09 Other forms of dyspnea; I50.30 Unspecified diastolic (congestive) heart failure; Z79.01 Long term (current) use of anticoagulants | CPT/HCPCS: 99212 ==

== ENCOUNTER 2024-12-30 13:14 | Outpatient (REF) | payer MEDICARE, MEDICAID, SELFPAY ==
--- NOTE | ~2024-12-30 | MM_ITS ---
EXAMINATION: DXA BONE DENSITY AXIAL HISTORY: Estrogen deficiency TECHNIQUE: [employer] Dual energy absorptiometry (DEXA) of the lumbar spine, total left hip, and femoral neck was performed. COMPARISON: There are no prior studies for comparison. FINDINGS: The bone mineral density of the lumbar spine is 1.134 with a T-score of -0.4, and a Z-score of 1.1. The bone mineral density of the left total hip is 0.828 with a T-score of -1.4, and a Z-score of 0.0. The bone mineral density of the left femoral neck is 0.751 with a T-score of -2.1, and a Z-score of -0.4. FRACTURE RISK: The FRAX index suggests a risk of major osteoporotic fracture of 7.0%, and of hip fracture 1.6%. MM/XR DEXA axial skeleton IMPRESSION: Based on bone mineral density, and according to World Health Organization (WHO) criteria, the diagnosis is consistent with osteopenia. All bone density values are in grams per centimeter squared (g/cm2). Statistically, 68% of repeat scans fall within 1 SD (+/- 0.010 g/cm2 for AP spine L1-L4) and 1 SD (+/- 0.012 g/cm2 for femur total) FRAX is a trademark of the [employer]'s [place] for Metabolic Bone Disease, a World Health Organization (WHO) Collaborating Center. Electronically signed by: Fermin Early MD 01/01/2025 07:32 AM EST
--- NOTE | ~2024-12-30 | MM_ITS ---
EXAMINATION: MM SCREENING DIGITAL BREAST TOMOSYNTHESIS, BILATERAL CLINICAL INFORMATION: Screening. Asymptomatic. COMPARISON: Mammography: Baseline. TECHNIQUE: Digital breast mammography with tomosynthesis is performed in both the craniocaudal and mediolateral oblique views along with computer-aided detection (CAD). FINDINGS: There are scattered areas of fibroglandular density (ACR BI-RADS breast composition Category b). There are no significant masses, abnormal calcifications, or other abnormalities. Question prominent left axillary lymph node. MM/MM tomosynthesis screening BI IMPRESSION: Question prominent left axillary lymph node. Ultrasound evaluate correlation is recommended at this time. ASSESSMENT: BI-RADS BI-RADS 0 - Incomplete: Needs additional Imaging. RECOMMENDATION: 1. Additional views of the left axilla with axillary ultrasound at this time. . 2. Radiology department staff will contact the patient for additional imaging. Additional Imaging required This examination should not preclude the clinical evaluation of a suspicious palpable abnormality. This patient's information was entered into a reminder system with a target due date for their next mammogram. Electronically signed by: Yasmeen Tee DO 01/08/2025 05:02 PM EDT
== END 2024-12-30 13:15 | disposition home or self-care (01) ==
LOC: HO.MAMMO 13:14
PROVIDERS: PCP Family Medicine Geriatric Medicine; Visit Provider Obstetrics & Gynecology
DX: Z12.31 Encounter for screening mammogram for malignant neoplasm of breast (principal); Z13.820 Encounter for screening for osteoporosis; Z78.0 Asymptomatic menopausal state
CPT/HCPCS: 77063; 77067; 77080

== ENCOUNTER → 2024-12-30 14:00 | Outpatient (BNV) | payer MEDICARE, MEDICAID, SELFPAY | PROVIDERS: PCP Family Medicine Geriatric Medicine; Visit Provider Radiology Diagnostic Radiology | DX: Z12.31 Encounter for screening mammogram for malignant neoplasm of breast (principal) | CPT/HCPCS: 77063; 77067 ==

== ENCOUNTER 2025-01-11 10:39 | Outpatient (AMB) | payer MEDICARE, MEDICAID, SELFPAY ==
--- NOTE | 2025-01-11 10:45 | HO.NEPHOV_ITS ---
Vital Signs 01/11/25 10:46 Height 5 ft Weight 160 lb BMI 31.2 BP 130/74 Blood Pressure Location Rt brachial Position Sitting Pulse 60 Pulse Source Pulse Oximeter Pulse Oximetry (%) 95 Oxygen Delivery Method Room Air Intake Visit Reasons: DANISH/ Conf Svp Operations Required: No Accompanied by: Daughter Allergies Penicillins [PENICILLINS] Allergy (Unknown, Verified 01/11/25 10:48) Rash lactose Adverse Reaction (Mild, Verified 01/11/25 10:48) Unknown shellfish Allergy (Mild, Uncoded 12/28/24 10:51) Unknown Medication List - Last Reconciled 01/11/25 by Cristhian Dolan MD acetaminophen 500 mg PO DAILY PRN amlodipine mg PO apixaban (Eliquis) 5 mg PO BID atorvastatin 40 mg PO BEDTIME blood sugar diagnostic (FreeStyle Lite Strips) Test four times a day or as d irected. blood sugar diagnostic (FreeStyle Lite Strips) three times per day blood-glucose meter (FreeStyle Lite Meter kit) As Directed blood-glucose meter (FreeStyle Lite Meter kit) As directed to test blood sugar 3 times per day carvedilol 25 mg PO BID cholecalciferol (vitamin D3) 25 mcg PO DAILY dapagliflozin propanediol (Farxiga) 5 mg PO DAILY fluticasone furoate-vilanterol 100-25 mcg/dose (Breo Ellipta) 1 inh inhalation DAILY furosemide (Lasix) 40 mg PO DAILY PRN gabapentin 100 mg PO DAILY gemfibrozil 600 mg PO BID insulin glargine (Lantus Solostar U-100 Insulin) 18 units subcut BEDTIME insulin lispro (Humalog KwikPen (U-100) Insulin) 1 sliding scale dose subcut QIDACHS isosorbide mononitrate ER 30 mg PO DAILY lancets (FreeStyle Lancets) Test four times a day or as directed. lancets (FreeStyle Lancets) Test 3 times per day magnesium hydroxide (Milk of Magnesia) 5 mL PO DAILY PRN melatonin 6 mg PO BEDTIME PRN multivitamin with minerals 1 tab PO DAILY pen needle, diabetic Use four times a day or as directed. sodium bicarbonate 650 mg PO BID tamsulosin (Flomax) 0.4 mg PO BEDTIME trazodone 25 mg PO BEDTIME PRN HPI Comments Details: 73-year-old woman with a history of longstanding diabetes mellitus for more than 20 years. She was recently hospitalized and was found to have acute kidney injury. During workup she was found to have about 5 g of proteinuria. At the time of discharge serum creatinine decreased to 2.8 mg/dL. She appeared euvolemic. She was on valsartan and Jardiance which were placed on hold. Today she was accompanied by her daughter. Blood pressure is still suboptimal blood sugar is suboptimal. She has no shortness of breath at rest. She has shortness of breath on exertion. no nausea or vomiting. No urinary symptoms. 10/08/24 Seen by And cardiology Sleep apnea requiring O2 01/11/25 Still at [facility] On LAsix 40 mg PRN PFSH Medical History CVA (cerebral vascular accident) (HFpEF) heart failure with preserved ejection fraction Left leg weakness SOB (shortness of breath) Gout of big toe Elevated troponin Bilateral wheezing Leg edema Increasing shortness of breath 2+ pitting edema Cataract Hypertension Gout Surgical History History of cholecystectomy H/O: hysterectomy Social History Household Members: Children Housing: House Do you presently have visiting nurse or other home services: No Alcohol intake: never Comment: refusing alarms Patient Tobacco Use Status: Former Tobacco user Second Hand Smoke Exposure: No Advance Directives Date on File: 04/08/24 service: No Current occupational status: retired Female Reproductive History Menstrual Age of Menarche: 20 Physical Exam Vital Signs: BMI result Body Mass Index 31.2 Last Vital Signs Temp 96.5 F L 02/13/24 11:05 Pulse 72 02/13/24 11:41 Resp 16 02/13/24 11:41 BP 103/58 L 02/13/24 11:05 Pulse Ox 95 02/13/24 11:05 O2 Del Method Room Air 02/13/24 11:05 BMI result Body Mass Index 34.3 Awake. Comfortable. Neck is supple. Mucosa moist. Lungs clear Heart S1-S2 heard no gallop. Abdomen soft. Extremities no edema. No involuntary movements. No myoclonus. Const Nutritional Appearance: well nourished Orientation/consciousness: patient oriented x3 HEENT Head: No normal to inspection Mouth: moist mucous membranes Neck Neck: Yes supple and Yes no JVD Resp Auscultation: crackles Cardio Jugular venous distension: no JVD Palpation: no palpable S3 and no palpable S4 Heart sounds: no rubs GI Palpation (GI): Soft to palpation and nontender Percussion: No Fluid wave present General: Yes no CVA tenderness Back/Spine/Pelvis Back: no CVA tenderness Skin General skin exam: no rashes or lesions noted Neuro General: patient oriented x3 Extrem General: No clubbing Results Reviewed Results Reviewed: 12/28/24 Cr 2.18 Nephrology Results: No Data to Display Assessment & Plan Assessment & Plan (1) Acute kidney injury superimposed on chronic kidney disease: Code(s): N17.9 - Acute kidney failure, unspecified; N18.9 - Chronic kidney disease, unspecified Category: Medical Plan 73-year-old woman with chronic kidney disease. She has proteinuria most likely due to underlying diabetic nephropathy. 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 Baseline creatinine is around 2.2 mg/dL. She sustained DANISH due to hypoperfusion. Renal function has improved and close to baseline. Creatinine at baseline with eGFR of 28 ml/mt At this point the goal is to slow the progression of kidney disease Continue to avoid nephrotoxic agents. Agree with SGLT-2 inhibitor Change LAsix at 20 mg dialy We discussed importance of tight control of blood sugar and blood pressure to slow the portion disease. BP is well controlled Anemia due to underlying chronic kidney disease. No absolute indication for Epogen yet She will follow closely. Splenic mass- follow with PCP Orders: Orders Basic Metabolic Panel 4 Weeks N17.9 - Acute kidney failure, unspecified, N18.9 - Chronic kidney disease, unspecified Medications: Changed From furosemide (Lasix) 40 mg PO DAILY PRN 20 tabs 0RF edema I50.30 - Unspecified diastolic (congestive) heart failure To furosemide 20 mg PO DAILY 90 tabs 3RF edema I50.30 - Unspecified diastolic (congestive) heart failure Coding Level of Care Code Est Pt Level 4 (24453) Diagnoses Acute kidney injury superimposed on chronic kidney disease N17.9; N18.9
[2025-01-11 10:46] VITALS: BP 130/74; PULSE 60; O2SAT 95; BMI 31.2
== END 2025-01-11 11:03 | disposition home or self-care (01) ==
LOC: HO.HKA 10:40
PROVIDERS: Visit Provider Internal Medicine Hypertension Specialist
DX: N17.9 Acute kidney failure, unspecified (principal); N18.9 Chronic kidney disease, unspecified
CPT/HCPCS: 99214

== ENCOUNTER → 2025-01-11 10:39 | Outpatient (BNVA) | payer MEDICARE, MEDICAID, SELFPAY | PROVIDERS: Visit Provider Internal Medicine Hypertension Specialist | DX: N17.9 Acute kidney failure, unspecified (principal); E11.22 Type 2 diabetes mellitus with diabetic chronic kidney disease; I12.9 Hypertensive chronic kidney disease with stage 1 through stage 4 chronic kidney disease, or unspecified chronic kidney disease; N18.9 Chronic kidney disease, unspecified | CPT/HCPCS: 99212 ==

== ENCOUNTER 2025-01-20 10:29 | Outpatient (AMB) | payer MEDICARE, MEDICAID, SELFPAY ==
--- NOTE | 2025-01-20 10:30 | A.OFFVIS_ITS ---
Intake Visit Reasons: 3 month dexa follow up Allergies Penicillins [PENICILLINS] Allergy (Unknown, Verified 01/11/25 10:48) Rash lactose Adverse Reaction (Mild, Verified 01/11/25 10:48) Unknown shellfish Allergy (Mild, Uncoded 12/28/24 10:51) Unknown HPI Comments Details: The patient is scheduled for a telehealth visit for follow-up DEXA scan which showed the following: The bone mineral density of the lumbar spine is 1.134 with a T-score of -0.4, and a Z-score of 1.1. The bone mineral density of the left total hip is 0.828 with a T-score of -1.4, and a Z-score of 0.0. The bone mineral density of the left femoral neck is 0.751 with a T-score of -2.1, and a Z-score of -0.4. FRACTURE RISK: The FRAX index suggests a risk of major osteoporotic fracture of 7.0%, and of hip fracture 1.6%. [facility] Medical History CVA (cerebral vascular accident) (HFpEF) heart failure with preserved ejection fraction Left leg weakness SOB (shortness of breath) Gout of big toe Elevated troponin Bilateral wheezing Leg edema Increasing shortness of breath 2+ pitting edema Cataract Hypertension Gout Surgical History History of cholecystectomy H/O: hysterectomy Social History Household Members: Children Housing: House Do you presently have visiting nurse or other home services: No Alcohol intake: never Comment: refusing alarms Patient Tobacco Use Status: Former Tobacco user Second Hand Smoke Exposure: No Advance Directives Date on File: 04/08/24 service: No Current occupational status: retired Female Reproductive History Menstrual Age of Menarche: 20 Review of Systems Const All systems reviewed & are unremarkable except as noted in HPI and below Reports as per HPI and Reports no additional complaints GI Reports no additional complaints Reports no additional complaints Telehealth Telehealth Telehealth Platform: [employer] Location of provider rendering services: practice address Location of patient: address on file Patient Identification confirmed using: Name, : Yes Telehealth method: video Patient verbally consented to treatment: Yes Patient verbally consented to billing insurance company: Yes Patient informed of any privacy concerns related to visit: Yes Minutes spent on Phone/Video with Pt.: 2 Assessment & Plan Assessment & Plan (1) Osteopenia: Code(s): M85.80 - Other specified disorders of bone density and structure, unspecified site Category: Medical Plan: Discussed with the patient the DEXA results and FRAX risk. FRAX risk and T score showed no evidence of osteoporosis. Discussed with the patient all the options for osteoporosis prevention including lifestyle modifications including Ca+D supplements 1200 mg po qd/800 MIU, Weight bearing exercises and proteine supplements. The patient verbalized understanding and agreed plan will repeat DEXA in 2 years. I spent a total of 20 minutes reviewing the chart, talking to the patient via video and documenting in the medical record. Coding Level of Care Code Tele Est Pt Level 3 (29497) Diagnoses Osteopenia M85.80
== END 2025-01-20 10:49 | disposition home or self-care (01) ==
LOC: HO.HWS 10:29
PROVIDERS: PCP Family Medicine Geriatric Medicine; Visit Provider Obstetrics & Gynecology
DX: M85.80 Other specified disorders of bone density and structure, unspecified site (principal)
CPT/HCPCS: 99213

== ENCOUNTER 2025-02-19 11:12 | Outpatient (AMB) | payer MEDICARE, MEDICAID, SELFPAY ==
[2025-02-19 11:16] VITALS: BP 156/98; PULSE 62; TEMP 37; O2SAT 96; BMI 31.5
--- NOTE | 2025-02-19 11:16 | MHC.PC.OV ---
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 blood sugar diagnostic (FreeStyle Lite Strips) three times per day blood-glucose meter (FreeStyle Lite Meter kit) As Directed blood-glucose meter (FreeStyle Lite Meter kit) As directed to test blood sugar 3 times per day Breo Ellipta 100-25 mcg/dose (fluticasone furoate-vilanterol) 1 inh inhalation DAILY NS carvedilol 25 mg PO BID cholecalciferol (vitamin D3) 25 mcg PO DAILY dapagliflozin propanediol (Farxiga) 5 mg PO DAILY furosemide 20 mg PO DAILY gabapentin 100 mg PO DAILY gemfibrozil 600 mg PO BID insulin glargine (Lantus Solostar U-100 Insulin) 18 units subcut BEDTIME insulin lispro (Humalog KwikPen (U-100) Insulin) 1 sliding scale dose subcut QIDACHS isosorbide mononitrate ER 30 mg PO DAILY lancets (FreeStyle Lancets) Test four times a day or as directed. lancets (FreeStyle Lancets) Test 3 times per day magnesium hydroxide (Milk of Magnesia) 5 mL PO DAILY PRN melatonin 6 mg PO BEDTIME PRN multivitamin with minerals 1 tab PO DAILY nitrofurantoin monohyd/m-cryst 100 mg 1 cap PO BID pen needle, diabetic Use four times a day or as directed. 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 Farxiga 5 mg Eliquis 5 mg b.i.d. Frusemide 20 mg daily Gabapentin 100 at night Gemfibrozil 600 b.i.d. Insulin 18 units long-acting bedtime Insulin Humalog on sliding scale Magnesium Multivitamin Sodium bicarb 650 b.i.d. through Nephrology Flomax through Nephrology Trazodone 25 at bedtime as a sleep aid Last set of lab in the chart are from July of 2024 Hemoglobin 9.8 hematocrit 31.4 Creatinine 1.76 GFR 28 AST ALT within normal limit alkaline phosphatase 136 Patient will need new set of labs order placed [place] [facility] Dr. Prajapati cardiology Dr. Dolan nephrology last visit December this Neurology Dr. Samuels last visit February OBGYN Dr. Yi last visit December Pulmonary [facility] last visit December Urology [facility] last visit September of last year - She experienced a stroke in the past and is recovering from it. Prior to the stroke, the patient was hospitalized due to significant edema stemming from fluid overload related to heart failure. - She wears oxygen at night and previously underwent a sleep study four months ago; another study is required in 30 days to continue oxygen therapy coverage. - The patient takes blood thinners, specifically Apixaban, following a stroke with MRI findings of multiple embolic-looking lesions in the acute right side. - Her chronic kidney disease has required her to monitor fluid intake closely due to past issues with fluid retention and previous recommendation for daily diuretic (Furosemide). - She has a history of dyslipidemia, controlled with Atorvastatin, due to high cholesterol. - Regular cardiology follow-up is planned due to weak heart function; the upcoming cardiology appointment is scheduled for March 11. - There have been concerns about short-term memory issues potentially related to prior head trauma from a fall in July last year. Health Maintenance - Scheduled follow-up evaluations for her ongoing cardiology and pulmonary care. - Continued monitoring and management of blood glucose levels as the patient's diabetes is currently under control. - Weight management is ongoing, with daily weight checks recommended to monitor fluid status. Social History - Lives with family, daughter present during consultation - discharged date from a rehabilitation facility with plans for continued support at home in February Problem List - Stroke - Chronic Kidney Disease - Diabetes Mellitus - Dyslipidemia - Acute Ischemic Stroke - Hypertension - Sleep Apnea - weakness left leg post stroke - risk for fall - obesity - chronic congestive heart failure - chronic blood thinners Patient Instructions - Continue prescribed medications for chronic conditions. - Perform daily weight checks to monitor for fluid retention. - Attend all scheduled medical appointments, including cardiology on March 11 and pulmonary on March 15. - Ensure adherence to nightly oxygen therapy and follow-up on sleep study requirements. - communicate with the rehab facility and restarted frusemide ex Review of Systems - General: No fever no chills - Neurological: No headaches some dizziness off and on - Ear nose throat: No sore throat no hearing difficulty no ear pain - Cardiovascular: No syncope, no chest pain, no palpitations - Gastrointestinal: No nausea vomiting or diarrhea - Endocrine: No polyuria polydipsia no heat intolerance - Genitourinary: No dysuria - Skin: No new complaints Physical Exam General: Cooperative, healthy appearing, comfortable, no acute distress Orientation: Patient oriented x3 Limitations: Risk for fall difficulty walking Head: Normal to inspection Ears: Within normal limit visually Nose: Normal external nose present Face and sinus: Normal facial exam Eyes: Appearance normal, extraocular movement intact pupils reactive Neck: Normal visual inspection and supple Respiratory: Normal respiratory effort and able to speak in complete sentences. Crackles at the base of lungs bilateral no stridor. Patient wears oxygen at night. Cardiovascular: S1 and S2. RRR GI: Normal to inspection. Soft to palpation and nontender Skin: Turgor normal, no acute findings. Neuro: Patient oriented x3, motor intact, sitting in wheelchair weakness in left lower extremity Extremities: Minimal edema ankles bilateral PFSH Medical History Leg edema CVA (cerebral vascular accident) (HFpEF) heart failure with preserved ejection fraction Left leg weakness SOB (shortness of breath) Gout of big toe Elevated troponin Bilateral wheezing Increasing shortness of breath 2+ pitting edema Cataract Hypertension Gout Surgical History History of cholecystectomy H/O: hysterectomy Social History Household Members: Children Housing: House Do you presently have visiting nurse or other home services: No Alcohol intake: never Comment: refusing alarms Patient Tobacco Use Status: Former Tobacco user Second Hand Smoke Exposure: No Advance Directives Date on File: 04/08/24 service: No Current occupational status: retired Female Reproductive History Menstrual Age of Menarche: 20 Questionnaire PHQ-9 Over the last 2 weeks, how often have you been bothered by any of the following problems? 1. Little interest or pleasure in doing things: not at all 2. Feeling down, depressed, or hopeless: not at all 3. Trouble falling or staying asleep, or sleeping too much: several days 4. Feeling tired or having little energy: not at all 5. Poor appetite or overeating: not at all 6. Feeling bad about yourself - or that you are a failure or have let yourself or your family down: not at all 7. Trouble concentrating on things, such as reading the newspaper or watching television: several days 8. Moving or speaking so slowly that other people could have noticed. Or the opposite - being so fidgety or restless that you have been moving around a lot more than usual: not at all 9. Thoughts that you would be better off or of hurting yourself in some way: not at all Total score: 2 Depression Screening Interpretation: Negative Depression Screening Done: Yes [id number] - PHQ-9 Billing: Yes Source: Developed by Drs. Fermin Bynum, Evelyn Sanchez, Gabo Alamo and colleagues, with an educational rubina from [employer]. Thrive Questionnaire Date Thrive assessed: 02/19/25 I am a: Parent/Caregiver What is your living situation today?: I have a steady place to live Within the past 12 months, did the food you bought not last and you didn't have the money to get more?: I choose not to answer this question Within the past 12 months, did you worry whether your food would run out before you got money to buy more?: I choose not to answer this question Do you have trouble paying for medicines?: No Do you have trouble getting transportation to medical appointments?: No Do you have trouble paying your heating and electricity bill?: No Do you have trouble taking care of your child, family member or friend?: No Do you have trouble with day-to-day activities such as bathing, preparing meals, shopping, managing finances, etc.?: Yes Are you currently unemployed and looking for a job?: I choose not to answer this question Are you interested in more education?: I choose not to answer this question Please select the resources that you would like help with: Food Currently or been in a relationship where the following occur: I choose not to answer THRIVE Score: 0 AUDIT C Alcohol Use Questionnaire (AUDIT-C) 1. How often do you have a drink containing alcohol?: Never 3. How often do you have six or more drinks on one occasion?: Never Total Score: 0 LORA-7 AMB Questionnaire LORA-7 Date LORA - 7 assessed: 02/19/25 Feeling nervous, anxious, or on edge: 1 = Several days Not being able to stop or control worryin = Several days Worrying too much about different things: 1 = Several days Trouble relaxin = Several days Being so restless that it is hard to sit still: 0 = Not at all Becoming easily annoyed or irritable: 1 = Several days Feeling afraid as if something awful might happen: 0 = Not at all Total LORA-7 score (0-4 normal; 5-9 mild; 10-14 moderate; 15-21 severe): 5 Source: Developed by Evelyn Fraser Kurt Kroenke and colleagues, with an educational rubina from [employer]. LORA-7 Assessment Billing LORA-7 Assessment Tool: LORA-7 Assessment 85243 Physical exam (Primary Care) Vital Signs: Last Vital Signs Temp 98.6 F 02/19/25 11:16 Pulse 62 02/19/25 11:16 BP 156/98 H 02/19/25 11:16 Pulse Ox 96 02/19/25 11:16 Oxygen Delivery Method Room Air 02/19/25 11:16 BMI result Body Mass Index 31.5 Tobacco/Smoking Status: Tobacco use Status Tobacco use date assessed 02/19/25 02/19/25 11:27 Patient Tobacco Use Status Former Tobacco user 02/19/25 11:27 PHQ-9: PHQ-9 Score PHQ-9: Total score 2 02/19/25 12:02 Depression Screening Interpretation: Negative Thrive Assessment: Date of Thrive Assessment Date Thrive assessed 02/19/25 02/19/25 11:27 Currently or been in a relationship where the following occur: I choose not to answer Results AMB Hemoglobin A1c AMB Hemoglobin A1c 5.6 % Last Edit by Candace Jones CMA on 02/19/25 11:35 Results Reviewed Results Reviewed: Laboratory Last Values Hgb A1c (Clinic) 5.6 % (4.0-6.0) 02/19/25 11:28 Coding Level of Care Code New Pt Level 5 (66740) Diagnoses Establishing care with new doctor, encounter for Z76.89 Diabetes mellitus with multiple complications E11.8 CKD stage 3b, GFR 30-44 ml/min N18.32 Hypertension, unspecified type I10 Hypertension type: unspecified Diabetes type 2, no ocular involvement E11.9 Leg edema R60.0 Chronic heart failure with preserved ejection fraction I50.32 Heart failure chronicity: chronic Anemia in other chronic diseases classified elsewhere D63.8 Anemia type: other cause Other causes of anemia: chronic disease, other Dyspnea on exertion R06.09 Osteopenia, unspecified location M85.80 Osteopenia location: unspecified Moderate persistent asthma without complication J45.40 Asthma complication type: uncomplicated Class 1 obesity due to excess calories with serious comorbidity and body mass index (BMI) of 31.0 to 31.9 in adult E66.811; E66.09; Z68.31 Body mass index: BMI 31.0-31.9 Obesity classification: adult class 1 (BMI 30 - 34.9) Serious obesity comorbidity presence: with serious comorbidity Risk for falls Z91.81 Chronic gout without tophus, unspecified cause, unspecified site [id number] Chronicity: chronic Gout etiology: unspecified cause Gout site: unspecified site Presence of tophus: without tophus History of stroke Z86.73 Recurrent falls R29.6 Additional Codes LORA-7 Assessment Billing - LORA-7 Assessment Tool: LORA-7 Assessment 88156 ([id number]) PHQ-9 - 44261 - PHQ-9 Billing: Yes ([id number]) Time Spent (min) 61 Assessment & Plan Assessment & Plan (1) Establishing care with new doctor, encounter for: Code(s): Z76.89 - Persons encountering health services in other specified circumstances Category: Medical (2) Diabetes mellitus with multiple complications: Code(s): E11.8 - Type 2 diabetes mellitus with unspecified complications Category: Medical (3) CKD stage 3b, GFR 30-44 ml/min: Code(s): N18.32 - Chronic kidney disease, stage 3b Category: Medical (4) Hypertension: Code(s): I10 - Essential (primary) hypertension Category: Medical Qualifiers: Hypertension type: unspecified Qualified Code(s): I10 - Essential (primary) hypertension (5) Diabetes type 2, no ocular involvement: Comment: Patient started on metformin. Patient should restart Jardiance. Will send patient glucometer and test kit. Patient has referral to Podiatry, patient will be making appointment for Ophthalmology. Patient should take blood sugar measurements at home. Patient meeting with community nurse navigator in 1 week. Patient will have follow-up in 2 weeks. Code(s): E11.9 - Type 2 diabetes mellitus without complications Category: Medical (6) Leg edema: Code(s): R60.0 - Localized edema Category: Medical (7) (HFpEF) heart failure with preserved ejection fraction: Code(s): I50.30 - Unspecified diastolic (congestive) heart failure Category: Medical Qualifiers: Heart failure chronicity: chronic Qualified Code(s): I50.32 - Chronic diastolic (congestive) heart failure (8) Anemia: Code(s): D64.9 - Anemia, unspecified Category: Medical Qualifiers: Anemia type: other cause Other causes of anemia: chronic disease, other Qualified Code(s): D63.8 - Anemia in other chronic diseases classified elsewhere (9) Dyspnea on exertion: Code(s): R06.09 - Other forms of dyspnea Category: Medical (10) Osteopenia: Code(s): M85.80 - Other specified disorders of bone density and structure, unspecified site Category: Medical Qualifiers: Osteopenia location: unspecified Qualified Code(s): M85.80 - Other specified disorders of bone density and structure, unspecified site (11) Asthma, moderate persistent: Code(s): J45.40 - Moderate persistent asthma, uncomplicated Category: Medical Qualifiers: Asthma complication type: uncomplicated Qualified Code(s): J45.40 - Moderate persistent asthma, uncomplicated (12) Obesity due to excess calories: Code(s): E66.09 - Other obesity due to excess calories Category: Medical Qualifiers: Body mass index: BMI 31.0-31.9 Obesity classification: adult class 1 (BMI 30 - 34.9) Serious obesity comorbidity presence: with serious comorbidity Qualified Code(s): E66.811 - Obesity, class 1; E66.09 - Other obesity due to excess calories; Z68.31 - Body mass index [BMI] 31.0-31.9, adult (13) Risk for falls: Code(s): Z91.81 - History of falling Category: Medical (14) Gout: Code(s): M10.9 - Gout, unspecified Category: Medical Qualifiers: Chronicity: chronic Gout etiology: unspecified cause Gout site: unspecified site Presence of tophus: without tophus Qualified Code(s): M1A.9XX0 - Chronic gout, unspecified, without tophus (tophi) (15) History of stroke: Code(s): Z86.73 - Personal history of transient ischemic attack (TIA), and cerebral infarction without residual deficits Category: Medical (16) Recurrent falls: Code(s): R29.6 - Repeated falls Category: Medical Plan Patient is a 74-year-old female came in today for establish care visit Patient has a history of diabetes mellitus type 2, hypertension, gout, chronic bilateral lower extremity edema, chronic kidney disease, orthopnea secondary to chronic congestive heart failure, obesity with BMI of 31.5 Recently discharged from rehab facility in need of new PCP Blood pressure is elevated today 156/98 Medication list Patient is on Tylenol for joint aches and pain Amlodipine Atorvastatin 40 mg Breo inhaler Carvedilol 25 b.i.d. Farxiga 5 mg Eliquis 5 mg b.i.d. Frusemide 20 mg daily Gabapentin 100 at night Gemfibrozil 600 b.i.d. Insulin 18 units long-acting bedtime Insulin Humalog on sliding scale Magnesium Multivitamin Sodium bicarb 650 b.i.d. through Nephrology Flomax through Nephrology Trazodone 25 at bedtime as a sleep aid Last set of lab in the chart are from July of 2024 Hemoglobin 9.8 hematocrit 31.4 Creatinine 1.76 GFR 28 AST ALT within normal limit alkaline phosphatase 136 Patient will need new set of labs order placed [place] [facility] Dr. Prajapati cardiology Dr. Dolan nephrology last visit December this Neurology Dr. Samuels last visit February OBGYN Dr. Yi last visit December Pulmonary [facility] last visit December Urology [facility] last visit September of last year - She experienced a stroke in the past and is recovering from it. Prior to the stroke, the patient was hospitalized due to significant edema stemming from fluid overload related to heart failure. - She wears oxygen at night and previously underwent a sleep study four months ago; another study is required in 30 days to continue oxygen therapy coverage. - The patient takes blood thinners, specifically Apixaban, following a stroke with MRI findings of multiple embolic-looking lesions in the acute right side. - Her chronic kidney disease has required her to monitor fluid intake closely due to past issues with fluid retention and previous recommendation for daily diuretic (Furosemide). - She has a history of dyslipidemia, controlled with Atorvastatin, due to high cholesterol. - Regular cardiology follow-up is planned due to weak heart function; the upcoming cardiology appointment is scheduled for March 11. - There have been concerns about short-term memory issues potentially related to prior head trauma from a fall in July last year. Health Maintenance - Scheduled follow-up evaluations for her ongoing cardiology and pulmonary care. - Continued monitoring and management of blood glucose levels as the patient's diabetes is currently under control. - Weight management is ongoing, with daily weight checks recommended to monitor fluid status. Social History - Lives with family, daughter present during consultation - discharged date from a rehabilitation facility with plans for continued support at home in February Problem List - Stroke - Chronic Kidney Disease - Diabetes Mellitus - Dyslipidemia - Acute Ischemic Stroke - Hypertension - Sleep Apnea - weakness left leg post stroke - risk for fall - obesity - chronic congestive heart failure - chronic blood thinners Patient Instructions - Continue prescribed medications for chronic conditions. - Perform daily weight checks to monitor for fluid retention. - Attend all scheduled medical appointments, including cardiology on March 11 and pulmonary on March 15. - Ensure adherence to nightly oxygen therapy and follow-up on sleep study requirements. - communicate with the rehab facility and restarted frusemide ex Orders: Orders Hemoglobin A1c Today D64.9 - Anemia, unspecified, E11.65 - Type 2 diabetes mellitus with hyperglycemia, E11.9 - Type 2 diabetes mellitus without complications, E66.09 - Other obesity due to excess calories, I10 - Essential (primary) hypertension, I50.30 - Unspecified diastolic (congestive) heart failure, J45.40 - Moderate persistent asthma, uncomplicated, M10.9 - Gout, unspecified, M85.80 - Other specified disorders of bone density and structure, unspecified site, N18.32 - Chronic kidney disease, stage 3b, R06.09 - Other forms of dyspnea, R60.0 - Localized edema, Z76.89 - Persons encountering health services in other specified circumstances, Z91.81 - History of falling Comprehensive Met. Panel Today D64.9 - Anemia, unspecified, E11.65 - Type 2 diabetes mellitus with hyperglycemia, E11.9 - Type 2 diabetes mellitus without complications, E66.09 - Other obesity due to excess calories, I10 - Essential (primary) hypertension, I50.30 - Unspecified diastolic (congestive) heart failure, J45.40 - Moderate persistent asthma, uncomplicated, M10.9 - Gout, unspecified, M85.80 - Other specified disorders of bone density and structure, unspecified site, N18.32 - Chronic kidney disease, stage 3b, R06.09 - Other forms of dyspnea, R60.0 - Localized edema, Z76.89 - Persons encountering health services in other specified circumstances, Z91.81 - History of falling TSH reflex Free T4 Today D64.9 - Anemia, unspecified, E11.65 - Type 2 diabetes mellitus with hyperglycemia, E11.9 - Type 2 diabetes mellitus without complications, E66.09 - Other obesity due to excess calories, I10 - Essential (primary) hypertension, I50.30 - Unspecified diastolic (congestive) heart failure, J45.40 - Moderate persistent asthma, uncomplicated, M10.9 - Gout, unspecified, M85.80 - Other specified disorders of bone density and structure, unspecified site, N18.32 - Chronic kidney disease, stage 3b, R06.09 - Other forms of dyspnea, R60.0 - Localized edema, Z76.89 - Persons encountering health services in other specified circumstances, Z91.81 - History of falling LDL Cholesterol Direct Today D64.9 - Anemia, unspecified, E11.65 - Type 2 diabetes mellitus with hyperglycemia, E11.9 - Type 2 diabetes mellitus without complications, E66.09 - Other obesity due to excess calories, I10 - Essential (primary) hypertension, I50.30 - Unspecified diastolic (congestive) heart failure, J45.40 - Moderate persistent asthma, uncomplicated, M10.9 - Gout, unspecified, M85.80 - Other specified disorders of bone density and structure, unspecified site, N18.32 - Chronic kidney disease, stage 3b, R06.09 - Other forms of dyspnea, R60.0 - Localized edema, Z76.89 - Persons encountering health services in other specified circumstances, Z91.81 - History of falling Vitamin D 25-OH (D2 and D3) Today D64.9 - Anemia, unspecified, E11.65 - Type 2 diabetes mellitus with hyperglycemia, E11.9 - Type 2 diabetes mellitus without complications, E66.09 - Other obesity due to excess calories, I10 - Essential (primary) hypertension, I50.30 - Unspecified diastolic (congestive) heart failure, J45.40 - Moderate persistent asthma, uncomplicated, M10.9 - Gout, unspecified, M85.80 - Other specified disorders of bone density and structure, unspecified site, N18.32 - Chronic kidney disease, stage 3b, R06.09 - Other forms of dyspnea, R60.0 - Localized edema, Z76.89 - Persons encountering health services in other specified circumstances, Z91.81 - History of falling AMB Hemoglobin A1c Today Z13.9 - Encounter for screening, unspecified Complete Blood Count Auto Diff Today D64.9 - Anemia, unspecified, E11.65 - Type 2 diabetes mellitus with hyperglycemia, E11.9 - Type 2 diabetes mellitus without complications, E66.09 - Other obesity due to excess calories, I10 - Essential (primary) hypertension, I50.30 - Unspecified diastolic (congestive) heart failure, J45.40 - Moderate persistent asthma, uncomplicated, M10.9 - Gout, unspecified, M85.80 - Other specified disorders of bone density and structure, unspecified site, N18.32 - Chronic kidney disease, stage 3b, R06.09 - Other forms of dyspnea, R60.0 - Localized edema, Z76.89 - Persons encountering health services in other specified circumstances, Z91.81 - History of falling Ferritin Today D64.9 - Anemia, unspecified, E11.65 - Type 2 diabetes mellitus with hyperglycemia, E11.9 - Type 2 diabetes mellitus without complications, E66.09 - Other obesity due to excess calories, I10 - Essential (primary) hypertension, I50.30 - Unspecified diastolic (congestive) heart failure, J45.40 - Moderate persistent asthma, uncomplicated, M10.9 - Gout, unspecified, M85.80 - Other specified disorders of bone density and structure, unspecified site, N18.32 - Chronic kidney disease, stage 3b, R06.09 - Other forms of dyspnea, R60.0 - Localized edema, Z76.89 - Persons encountering health services in other specified circumstances, Z91.81 - History of falling Folate Today D64.9 - Anemia, unspecified, E11.65 - Type 2 diabetes mellitus with hyperglycemia, E11.9 - Type 2 diabetes mellitus without complications, E66.09 - Other obesity due to excess calories, I10 - Essential (primary) hypertension, I50.30 - Unspecified diastolic (congestive) heart failure, J45.40 - Moderate persistent asthma, uncomplicated, M10.9 - Gout, unspecified, M85.80 - Other specified disorders of bone density and structure, unspecified site, N18.32 - Chronic kidney disease, stage 3b, R06.09 - Other forms of dyspnea, R60.0 - Localized edema, Z76.89 - Persons encountering health services in other specified circumstances, Z91.81 - History of falling Magnesium Today D64.9 - Anemia, unspecified, E11.65 - Type 2 diabetes mellitus with hyperglycemia, E11.9 - Type 2 diabetes mellitus without complications, E66.09 - Other obesity due to excess calories, I10 - Essential (primary) hypertension, I50.30 - Unspecified diastolic (congestive) heart failure, J45.40 - Moderate persistent asthma, uncomplicated, M10.9 - Gout, unspecified, M85.80 - Other specified disorders of bone density and structure, unspecified site, N18.32 - Chronic kidney disease, stage 3b, R06.09 - Other forms of dyspnea, R60.0 - Localized edema, Z76.89 - Persons encountering health services in other specified circumstances, Z91.81 - History of falling Vitamin B12 Today D64.9 - Anemia, unspecified, E11.65 - Type 2 diabetes mellitus with hyperglycemia, E11.9 - Type 2 diabetes mellitus without complications, E66.09 - Other obesity due to excess calories, I10 - Essential (primary) hypertension, I50.30 - Unspecified diastolic (congestive) heart failure, J45.40 - Moderate persistent asthma, uncomplicated, M10.9 - Gout, unspecified, M85.80 - Other specified disorders of bone density and structure, unspecified site, N18.32 - Chronic kidney disease, stage 3b, R06.09 - Other forms of dyspnea, R60.0 - Localized edema, Z76.89 - Persons encountering health services in other specified circumstances, Z91.81 - History of falling Referrals Neurology Referral [id number] - Unspecified fall, initial encounter, Z86.73 - Personal history of transient ischemic attack (TIA), and cerebral infarction without residual deficits
== END 2025-02-19 11:52 | disposition home or self-care (01) ==
LOC: HO.HMCC 11:13
PROVIDERS: PCP Family Medicine Geriatric Medicine; Visit Provider Internal Medicine
DX: I12.9 Hypertensive chronic kidney disease with stage 1 through stage 4 chronic kidney disease, or unspecified chronic kidney disease (principal); E11.8 Type 2 diabetes mellitus with unspecified complications; N18.32 Chronic kidney disease, stage 3b; E11.9 Type 2 diabetes mellitus without complications; I50.32 Chronic diastolic (congestive) heart failure; Z76.89 Persons encountering health services in other specified circumstances; R60.0 Localized edema; D63.8 Anemia in other chronic diseases classified elsewhere; R06.09 Other forms of dyspnea; M85.80 Other specified disorders of bone density and structure, unspecified site; J45.40 Moderate persistent asthma, uncomplicated; E66.811 Obesity, class 1

== ENCOUNTER → 2025-02-24 11:00 | Outpatient (REF) | payer MEDICARE, MEDICAID, SELFPAY ==
[2025-02-19 13:07] LABS: MANUAL DIFF FLAG NO
[2025-02-19 13:22] LABS: Basophils Percent Auto 0.3 % (0-2); Eosinophils Absolute Auto 0.8 X10*3/uL (0.0-0.4); Hemoglobin 9.4 g/dl (12.0-16.0); Imm Gran Abs Auto 0.22 X10*3/uL (0.00-0.03); Imm Gran Pct Auto 3.2 % (0.0-0.4); Lymphocytes Absolute Auto 2.2 X10*3/uL (1.2-4.9); Mean Corpuscular HGB Conc 31.3 g/dl (31.0-35.0); Mean Corpuscular Hemoglobin 28.7 pg (27.0-33.0); Mean Corpuscular Volume 91.5 fL (80.0-98.0); Mean Platelet Volume 10.6 fL (9.4-12.3); Monocytes Absolute Auto 0.7 X10*3/uL (0.1-1.2); Monocytes Percent Auto 9.3 % (2-11); Neutrophils Absolute Auto 3.2 x10*3/uL (2.0-8.3); Neutrophils Percent Auto 45.2 % (45-73); Platelet Count 255 X10*3/uL (160-400); Red Blood Count 3.28 X10*6/uL (4.20-5.50); Red Cell Distribution Width 15.9 % (11.0-16.0)
[2025-02-19 13:40] LABS: Estimated Average Glucose 140 mg/dL; Hemoglobin A1C 120.9258 umol/L; Hemoglobin A1c % 6.5 % (<6.0); Total Hemoglobin (HGBA1C) 2547.7831 umol/L
[2025-02-19 13:45] LABS: Alanine Aminotransferase 7 U/L (0-31); Albumin Level 3.9 g/dL (3.5-5.0); Alkaline Phosphatase 149 U/L (39-117); Anion Gap 13 (12-20); Aspartate Amino Transferase 19 U/L (5-31); Bilirubin Total 0.2 mg/dL (0.0-1.0); Blood Urea Nitrogen 32 mg/dL (9-16); Calcium 9.5 mg/dL (8.4-10.2); Carbon Dioxide 23 mmol/L (22-29); Chloride 107 mmol/L (96-108); Estimated Glomerular Filt Rate 26; Glucose Random 233 mg/dL (60-115); Magnesium 2.1 mg/dL (1.6-2.6); Potassium 4.8 mmol/L (3.3-5.1); Sodium 138 mmol/L (135-145); Total Protein 6.8 g/dL (6.5-8.0)
[2025-02-19 14:09] LABS: Folate 8.9 ng/mL (> or = 4.0); Vitamin B12 687 pg/mL (200-900)
[2025-02-19 14:13] LABS: Ferritin 73 ng/mL (10-250); TSH reflex Free T4 1.11 uIU/mL (0.32-4.0)
[2025-02-20 13:38] LABS: LDL Cholesterol Direct 150 mg/dL (<100)
[2025-02-24 12:18] LABS: Vitamin D 25-OH, D2 7 ng/mL; Vitamin D 25-OH, D3 24 ng/mL; Vitamin D 25-OH, Total 31 ng/mL (30-100)
== END ==
LOC: HO.SL 11:00
PROVIDERS: PCP Family Medicine Geriatric Medicine; Referring Provider Internal Medicine; Visit Provider Nurse Practitioner Family
DX: G47.34 Idiopathic sleep related nonobstructive alveolar hypoventilation (principal); R40.0 Somnolence; Z76.89 Persons encountering health services in other specified circumstances; E11.8 Type 2 diabetes mellitus with unspecified complications; E11.22 Type 2 diabetes mellitus with diabetic chronic kidney disease; I13.0 Hypertensive heart and chronic kidney disease with heart failure and stage 1 through stage 4 chronic kidney disease, or unspecified chronic kidney disease; N18.32 Chronic kidney disease, stage 3b; I50.32 Chronic diastolic (congestive) heart failure; D63.1 Anemia in chronic kidney disease; R60.0 Localized edema; R06.09 Other forms of dyspnea; M85.80 Other specified disorders of bone density and structure, unspecified site; J45.40 Moderate persistent asthma, uncomplicated; E66.811 Obesity, class 1; E66.09 Other obesity due to excess calories; Z68.31 Body mass index [BMI] 31.0-31.9, adult; M1A.9XX0 Chronic gout, unspecified, without tophus (tophi); R29.6 Repeated falls; E11.65 Type 2 diabetes mellitus with hyperglycemia; Z86.73 Personal history of transient ischemic attack (TIA), and cerebral infarction without residual deficits; Z79.4 Long term (current) use of insulin; Z79.899 Other long term (current) drug therapy; Z91.81 History of falling
CPT/HCPCS: 36415; 80053; 82306; 82607; 82728; 82746; 83036; 83721; 83735; 84443; 85025; 95810; 96127; 99212

== ENCOUNTER → 2025-02-24 19:30 | Outpatient (REF) | payer MEDICARE, MEDICAID, SELFPAY | LOC: HO.SL 19:30 | PROVIDERS: PCP Family Medicine Geriatric Medicine; Visit Provider Nurse Practitioner Family | DX: Z13.89 Encounter for screening for other disorder (principal) ==

== ENCOUNTER → 2025-02-24 22:49 | Outpatient (BNV) | payer MEDICARE, MEDICAID, SELFPAY | PROVIDERS: PCP Family Medicine Geriatric Medicine; Referring Provider Internal Medicine; Visit Provider Internal Medicine | DX: G47.33 Obstructive sleep apnea (adult) (pediatric) (principal); G47.36 Sleep related hypoventilation in conditions classified elsewhere | CPT/HCPCS: 95810 ==

== ENCOUNTER 2025-03-01 10:48 | Outpatient (REF) | payer MEDICARE, MEDICAID, SELFPAY ==
--- NOTE | ~2025-03-01 | US_ITS ---
EXAMINATION: US DIAGNOSTIC ULTRASOUND BREAST, LEFT CLINICAL INFORMATION: Call back from screening for left axillary question prominent lymph nodes.. COMPARISON: Comparison is made with relevant prior imaging. TECHNIQUE: Ultrasound of the breast is performed with real-time hillman scale imaging and color Doppler. FINDINGS: Targeted color Doppler ultrasound scanning in the left axilla demonstrates multiple normal-appearing lymph nodes. There is no sonographic abnormality. There are no abnormal lymph nodes. Results are discussed with the patient at time of visit. US/US breast LT limited mamm only IMPRESSION: Normal axillary lymph nodes. Benign. ASSESSMENT: BI-RADS 1: Negative RECOMMENDATION: Routine annual mammography screening. This patient's information was entered into a reminder system with a target due date for their next mammogram. Electronically signed by: Yasmeen Tee DO 03/01/2025 01:07 PM EDT
== END 2025-03-01 10:49 | disposition home or self-care (01) ==
LOC: HO.MAMMO 10:48
PROVIDERS: PCP Family Medicine Geriatric Medicine; Visit Provider Obstetrics & Gynecology
DX: N63.32 Unspecified lump in axillary tail of the left breast (principal)
CPT/HCPCS: 76642

== ENCOUNTER → 2025-03-01 11:30 | Outpatient (BNV) | payer MEDICARE, MEDICAID, SELFPAY | PROVIDERS: PCP Family Medicine Geriatric Medicine; Visit Provider Internal Medicine | DX: R92.8 Other abnormal and inconclusive findings on diagnostic imaging of breast (principal) | CPT/HCPCS: 76642 ==

== ENCOUNTER 2025-03-10 12:48 | Outpatient (REF) | payer MEDICARE, MEDICAID, SELFPAY | END 2025-03-10 12:49 | disposition home or self-care (01) | LOC: HO.LNP 12:48 | PROVIDERS: PCP Internal Medicine; Visit Provider Internal Medicine | DX: E11.8 Type 2 diabetes mellitus with unspecified complications (principal); M54.50 Low back pain, unspecified; G89.29 Other chronic pain; N30.01 Acute cystitis with hematuria; I13.0 Hypertensive heart and chronic kidney disease with heart failure and stage 1 through stage 4 chronic kidney disease, or unspecified chronic kidney disease; E11.22 Type 2 diabetes mellitus with diabetic chronic kidney disease; N18.32 Chronic kidney disease, stage 3b; I50.32 Chronic diastolic (congestive) heart failure; R60.0 Localized edema; D63.8 Anemia in other chronic diseases classified elsewhere; R06.09 Other forms of dyspnea; M85.80 Other specified disorders of bone density and structure, unspecified site; J45.40 Moderate persistent asthma, uncomplicated; R29.6 Repeated falls; Z86.73 Personal history of transient ischemic attack (TIA), and cerebral infarction without residual deficits; Z87.440 Personal history of urinary (tract) infections; Z79.01 Long term (current) use of anticoagulants; Z79.899 Other long term (current) drug therapy; Z91.81 History of falling | CPT/HCPCS: 81003; 87086; 87088; 87186; 99212 ==

== ENCOUNTER 2025-03-10 12:48 | Outpatient (AMB) | payer MEDICARE, MEDICAID, SELFPAY ==
--- NOTE | 2025-03-10 12:59 | A.OFFPC_ITS ---
Vital Signs 03/10/25 13:00 Height 5 ft Weight 163 lb 4 oz BMI 31.9 BP 130/66 Blood Pressure Location Rt brachial Position Sitting Pulse 66 Pulse Source Pulse Oximeter Pulse Oximetry (%) 94 Oxygen Delivery Method Room Air Intake Visit Reasons: Discharge f/up Allergies Penicillins [PENICILLINS] Allergy (Unknown, Verified 03/10/25 13:00) Rash lactose Adverse Reaction (Mild, Verified 03/10/25 13:00) Unknown shellfish Allergy (Mild, Uncoded 03/10/25 13:00) Unknown Medication List - Last Reconciled 03/10/25 by Keeley Samuels MD acetaminophen 500 mg PO DAILY PRN amlodipine mg PO apixaban (Eliquis) 5 mg PO BID atorvastatin 40 mg PO BEDTIME blood sugar diagnostic (FreeStyle Lite Strips) Test four times a day or as directed. blood sugar diagnostic (FreeStyle Lite Strips) three times per day blood-glucose meter (FreeStyle Lite Meter kit) As Directed blood-glucose meter (FreeStyle Lite Meter kit) As directed to test blood sugar 3 times per day Breo Ellipta 100-25 mcg/dose (fluticasone furoate-vilanterol) 1 inh inhalation DAILY NS carvedilol 25 mg PO BID cholecalciferol (vitamin D3) 25 mcg PO DAILY dapagliflozin propanediol (Farxiga) 5 mg PO DAILY furosemide 20 mg PO DAILY gabapentin 100 mg PO DAILY gemfibrozil 600 mg PO BID insulin glargine (Lantus Solostar U-100 Insulin) 18 units subcut BEDTIME insulin lispro (Humalog KwikPen (U-100) Insulin) 1 sliding scale dose subcut QIDACHS isosorbide mononitrate ER 30 mg PO DAILY lancets (FreeStyle Lancets) Test four times a day or as directed. lancets (FreeStyle Lancets) Test 3 times per day magnesium hydroxide (Milk of Magnesia) 5 mL PO DAILY PRN melatonin 6 mg PO BEDTIME PRN multivitamin with minerals 1 tab PO DAILY pen needle, diabetic Use four times a day or as directed. sodium bicarbonate 650 mg PO BID tamsulosin (Flomax) 0.4 mg PO BEDTIME trazodone 25 mg PO BEDTIME PRN Tobacco use date assessed: 03/10/25 Fall risk assessment: 2 + Falls in past year (3 falls) Last assessed Fall Risk: 03/10/25 Dental Screening Dental Screen Date: 03/10/25 Did you have a dental visit in the last 12 months?: No Did you have a dental problem in the last 6 months where you did not have access to dental care?: No Was dental information given to patient?: Patient has dentist HPI Discharge f/up HPI Details Chief Complaint The patient presents with confusion and blood in urine following recent discharge. She recently got discharged from a rehab center Managing multiple chronic conditions including post-stroke care and monitoring of chronic kidney disease. History - The patient is a 74-year-old female pr esenting with urinary tract infection. The UTI was noted previously, and antibiotics were administered, yet the patient remains confused with episodes of pink urine, suggesting continued or recurrent infection. - The confusion observed may be associat ed with urinary tract infection, polypharmacy, or sequelae from a stroke experienced in the past. - The patient has a history of a cerebro vascular accident. Post-stroke, the patient had been under rehabilitation care and was discharged two days prior to this visit. - Recent glucose levels were sporadicall y high, with a glucose reading of 500 noted, which may be impacting her confusion status. Morning checks reveal glucose at around 130 mg/dL. - Chronic anemia has been identified wit h a hemoglobin level of 9.4, raising concerns about potential gastro-intestinal or renal causes, despite adequate iron and B12 levels. - Kidney function is impaired, with a re ported creatinine level of 1.92 mg/dL and an eGFR (estimated Glomerular Filtration Rate) of 26, indicating significantly reduced renal function. Patient has appointment with Nephrology coming up - She wears oxygen at night and previous ly underwent a sleep study four months ago; another study is is done, pending reading - The patient takes blood thinners, spec ifically Apixaban, following a stroke with MRI findings of multiple embolic-looking lesions in the acute right side. . - She has a history of dyslipidemia, con trolled with Atorvastatin, due to high cholesterol. Through Cardiology patient is also on gemfibrozil, daughter will discuss with Cardiology if combination medication should continue Cardiology appointment is in 1 day - There have been concerns about short-t erm memory issues potentially related to prior head trauma from a fall in July last year. Neurology appointment is coming up Health Maintenance - Sleep study completed for home oxygen approval. - Colonoscopy scheduled due to concerns about hemorrhoids and potential bleeding sources. - Current medication review due to poten tial drug interactions with hyperlipidemia regimen. - Recurrence of a urinary tract infectio n , UA done today shows signs of infection along with 3+ blood, Cipro 250 mg b.i.d. for 5 days considering nephropathy lower dose is given - Scheduled follow-up evaluations for he r ongoing cardiology and pulmonary care. - Continued monitoring and management of blood glucose levels as the patient's diabetes is currently under control. - Weight management is ongoing, with florin ly weight checks recommended to monitor fluid status. Medications - Eliquis for anticoagulation. - Isosorbide for angina-related symptoms . - Atorvastatin 40 mg for hyperlipidemia. - Gemfibrozole 600 mg for hyperlipidemia . - Tylenol for pain management. - Breo inhaler for respiratory managemen t. - Carvedilol for hypertension and heart failure management. - Apixaban for anticoagulation due to po st-stroke - Atorvastatin 40 mg for dyslipidemia - Amlodipine 2.5 mg for hypertension - Metoprolol for heart rate management - Furosemide as needed for fluid managem ent related to chronic kidney disease Social History - The patient mentioned a job at a [employer], indicating a level of functional independence. 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 - Continue monitoring blood glucose leve ls and adhere to diabetic management as prescribed. - Follow prescribed courses of antibioti cs to address urinary tract infection. - Use medication doses as discussed, devin ecially with altered renal function. - Maintain scheduled follow-up with neph rology for kidney assessment and management. - Consult cardiology regarding the combi amrik use of Atorvastatin and Gemfibrozole. - Observe for any new or worsening sympt oms and seek immediate care if necessary. - Continue prescribed medications for ch ronic conditions. - Perform daily weight checks to monitor for fluid retention. - Attend all scheduled medical appointme nts, including cardiology on March 11 and pulmonary on March 15. - Ensure adherence to nightly oxygen the rapy and follow-up on sleep study requirements. Review of Systems - General: No fever no chills - Neurological: No headaches - Ear nose throat: No sore throat no hearing difficulty no ear pain - Cardiovascular: No syncope, no chest pain, no palpitations - Gastrointestinal: No nausea vomiting or diarrhea - Skin: No new complaints Physical Exam General: Cooperative, healthy appearing, comfortable, no acute distress Orientation: Patient oriented x3, but very forgetful and confused Head: Normal to inspection Ears: Within normal limit visually Nose: Normal external nose present Face and sinus: Normal facial exam Eyes: Appearance normal, extraocular movement intact pupils reactive Neck: Normal visual inspection and supple Respiratory: Normal respiratory effort and able to speak in complete sentences. Clear to auscultation Cardiovascular: S1 and S2.. GI: Normal to inspection. Soft to palpation and nontender Skin: Turgor normal, . Neuro: Patient oriented x3, sitting in wheelchair very pleasant Extremities: Normal to inspection. Swelling noted in the ankles. [facility] [place] Medical History Leg edema CVA (cerebral vascular accident) (HFpEF) heart failure with preserved ejection fraction Left leg weakness SOB (shortness of breath) Gout of big toe Elevated troponin Bilateral wheezing Increasing shortness of breath 2+ pitting edema Cataract Hypertension Gout Surgical History History of cholecystectomy H/O: hysterectomy Social History Household Members: Children Housing: House Do you presently have visiting nurse or other home services: No Alcohol intake: never Comment: refusing alarms Patient Tobacco Use Status: Former Tobacco user e-Cigarette/Vaping Use: Never Used Second Hand Smoke Exposure: No Advance Directives Date on File: 04/08/24 service: No Current occupational status: retired Cognitive needs: No Hearing needs: No Vision needs: No Female Reproductive History Menstrual Age of Menarche: 20 Questionnaire Thrive Questionnaire Date Thrive assessed: 03/10/25 I am a: Parent/Caregiver What is your living situation today?: I have a steady place to live Within the past 12 months, did the food you bought not last and you didn't have the money to get more?: I choose not to answer this question Within the past 12 months, did you worry whether your food would run out before you got money to buy more?: I choose not to answer this question Do you have trouble paying for medicines?: No Do you have trouble getting transportation to medical appointments?: No Do you have trouble paying your heating and electricity bill?: No Do you have trouble taking care of your child, family member or friend?: No Do you have trouble with day-to-day activities such as bathing, preparing meals, shopping, managing finances, etc.?: Yes Are you currently unemployed and looking for a job?: I choose not to answer this question Are you interested in more education?: I choose not to answer this question Please select the resources that you would like help with: Food Currently or been in a relationship where the following occur: I choose not to answer THRIVE Score: 0 AUDIT C Alcohol Use Questionnaire (AUDIT-C) 1. How often do you have a drink containing alcohol?: Never 3. How often do you have six or more drinks on one occasion?: Never Total Score: 0 Score Reviewed/Action Taken: Yes LORA-7 AMB Questionnaire LORA-7 Date LORA - 7 assessed: 02/19/25 Source: Developed by Drs. Fermin Bynum, Evelyn Sanchez, Gabo Alamo and colleagues, with an educational rubina from [employer]. Physical exam (Primary Care) Vital Signs: Last Vital Signs Pulse 66 03/10/25 13:00 BP 130/66 03/10/25 13:00 Pulse Ox 94 03/10/25 13:00 Oxygen Delivery Method Room Air 03/10/25 13:00 BMI result Body Mass Index 31.9 Tobacco/Smoking Status: Tobacco use Status Tobacco use date assessed 03/10/25 03/10/25 13:04 Patient Tobacco Use Status Former Tobacco user 03/10/25 13:04 e-Cigarette/Vaping Use Never Used 03/10/25 13:04 Thrive Assessment: Date of Thrive Assessment Date Thrive assessed 03/10/25 03/10/25 13:04 Currently or been in a relationship where the following occur: I choose not to answer Results AMB Urinalysis, Automated UA Leukoctes 125 Mike/uL Last Edit by Edd Marc CMA on 03/10/25 13:16 UA Nitrite Negative Last Edit by Edd Marc, ROXANNE on 03/10/25 13:16 UA Urobilinogen 0.2 mg/dL Last Edit by Edd Marc, ROXANNE on 03/10/25 13:1 6 UA Protein 100 mg/dL Last Edit by Edd Marc, ROXANNE on 03/10/25 13:16 UA pH 6.0 Last Edit by Edd Marc, [employer] on 03/10/25 13:16 UA Blood 200 [place]/uL Last Edit by Edd Marc, ROXANNE on 03/10/25 13:16 UA Specific [place] 1.015 Last Edit by Edd Marc, ROXANNE on 03/10/25 13: 16 UA Ketone Negative Last Edit by Edd Marc, ROXANNE on 03/10/25 13:16 UA Bilirubin 0 mg/dL Last Edit by Edd Marc CMA on 03/10/25 13:16 UA Glucose 500 mg/dL Last Edit by Edd Marc CMA on 03/10/25 13:16 Results Reviewed Results Reviewed: Laboratory Last Values Urine pH (Auto) 6.0 03/10/25 13:12 Specific [place] (Auto) 1.015 03/10/25 13:12 Urine Protein (Auto) 100 mg/dL 03/10/25 13:12 Glucose (UA)(Auto) 500 mg/dL 03/10/25 13:12 Urine Ketones (Auto) Negative 03/10/25 13:12 Urine Blood (Auto) 200 [place]/uL 03/10/25 13:12 Urine Nitrite (Auto) Negative 03/10/25 13:12 Urine Bilirubin (Auto) 0 mg/dL 03/10/25 13:12 Urine Urobilinogen (Auto) 0.2 mg/dL 03/10/25 13:12 Leukocyte Esterase (Auto) 125 Mike/uL 03/10/25 13:12 Coding Level of Care Code Est Pt Level 5 (31973) Diagnoses Diabetes mellitus with multiple complications E11.8 Chronic left-sided low back pain without sciatica M54.50; G89.29 Back pain laterality: left Sciatica presence: without sciatica Acute cystitis with hematuria N30.01 CKD stage 3b, GFR 30-44 ml/min N18.32 Hypertension, unspecified type I10 Hypertension type: unspecified Leg edema R60.0 Chronic heart failure with preserved ejection fraction I50.32 Heart failure chronicity: chronic Anemia in other chronic diseases classified elsewhere D63.8 Anemia type: other cause Other causes of anemia: chronic disease, other Dyspnea on exertion R06.09 Osteopenia, unspecified location M85.80 Osteopenia location: unspecified Moderate persistent asthma without complication J45.40 Asthma complication type: uncomplicated Risk for falls Z91.81 History of stroke Z86.73 Recurrent falls R29.6 Time Spent (min) 41 Comment Reviewing chart, medication, [id number] with patient and daughter, coordination of care Assessment & Plan Assessment & Plan (1) Diabetes mellitus with multiple complications: Code(s): E11.8 - Type 2 diabetes mellitus with unspecified complications Category: Medical (2) Chronic lower back pain: Code(s): M54.50 - Low back pain, unspecified; G89.29 - Other chronic pain Category: Medical Qualifiers: Back pain laterality: left Sciatica presence: without sciatica Qualified Code(s): M54.50 - Low back pain, unspecified; G89.29 - Other chronic pain (3) Acute cystitis with hematuria: Code(s): N30.01 - Acute cystitis with hematuria Category: Medical (4) CKD stage 3b, GFR 30-44 ml/min: Code(s): N18.32 - Chronic kidney disease, stage 3b Category: Medical (5) Hypertension: Code(s): I10 - Essential (primary) hypertension Category: Medical Qualifiers: Hypertension type: unspecified Qualified Code(s): I10 - Essential (primary) hypertension (6) Leg edema: Code(s): R60.0 - Localized edema Category: Medical (7) (HFpEF) heart failure with preserved ejection fraction: Code(s): I50.30 - Unspecified diastolic (congestive) heart failure Category: Medical Qualifiers: Heart failure chronicity: chronic Qualified Code(s): I50.32 - Chronic diastolic (congestive) heart failure (8) Anemia: Code(s): D64.9 - Anemia, unspecified Category: Medical Qualifiers: Anemia type: other cause Other causes of anemia: chronic disease, other Qualified Code(s): D63.8 - Anemia in other chronic diseases classified elsewhere (9) Dyspnea on exertion: Code(s): R06.09 - Other forms of dyspnea Category: Medical (10) Osteopenia: Code(s): M85.80 - Other specified disorders of bone density and structure, unspecified site Category: Medical Qualifiers: Osteopenia location: unspecified Qualified Code(s): M85.80 - Other specified disorders of bone density and structure, unspecified site (11) Asthma, moderate persistent: Code(s): J45.40 - Moderate persistent asthma, uncomplicated Category: Medical Qualifiers: Asthma complication type: uncomplicated Qualified Code(s): J45.40 - Moderate persistent asthma, uncomplicated (12) Risk for falls: Code(s): Z91.81 - History of falling Category: Medical (13) History of stroke: Code(s): Z86.73 - Personal history of transient ischemic attack (TIA), and cerebral infarction without residual deficits Category: Medical (14) Recurrent falls: Code(s): R29.6 - Repeated falls Category: Medical Plan Chief Complaint The patient presents with confusion and blood in urine following recent discharge. She recently got discharged from a rehab center Managing multiple chronic conditions including post-stroke care and monitoring of chronic kidney disease. History - The patient is a 74-year-old female presenting with urinary tract infection. The UTI was noted previously, and antibiotics were administered, yet the patient remains confused with episodes of pink urine, suggesting continued or recurrent infection. - The confusion observed may be associated with urinary tract infection, polypharmacy, or sequelae from a stroke experienced in the past. - The patient has a history of a cerebrovascular accident. Post-stroke, the patient had been under rehabilitation care and was discharged two days prior to this visit. - Recent glucose levels were sporadically high, with a glucose reading of 500 noted, which may be impacting her confusion status. Morning checks reveal glucose at around 130 mg/dL. - Chronic anemia has been identified with a hemoglobin level of 9.4, raising concerns about potential gastro-intestinal or renal causes, despite adequate iron and B12 levels. - Kidney function is impaired, with a reported creatinine level of 1.92 mg/dL and an eGFR (estimated Glomerular Filtration Rate) of 26, indicating significantly reduced renal function. Patient has appointment with Nephrology coming up - She wears oxygen at night and previously underwent a sleep study four months ago; another study is is done, pending reading - The patient takes blood thinners, specifically Apixaban, following a stroke with MRI findings of multiple embolic-looking lesions in the acute right side. . - She has a history of dyslipidemia, controlled with Atorvastatin, due to high cholesterol. Through Cardiology patient is also on gemfibrozil, daughter will discuss with Cardiology if combination medication should continue Cardiology appointment is in 1 day - There have been concerns about short-term memory issues potentially related to prior head trauma from a fall in July last year. Neurology appointment is coming up Health Maintenance - Sleep study completed for home oxygen approval. - Colonoscopy scheduled due to concerns about hemorrhoids and potential bleeding sources. - Current medication review due to potential drug interactions with hyperlipidemia regimen. - Recurrence of a urinary tract infection , UA done today shows signs of infection along with 3+ blood, Cipro 250 mg b.i.d. for 5 days considering nephropathy lower dose is given - Scheduled follow-up evaluations for her ongoing cardiology and pulmonary care. - Continued monitoring and management of blood glucose levels as the patient's diabetes is currently under control. - Weight management is ongoing, with daily weight checks recommended to monitor fluid status. Medications - Eliquis for anticoagulation. - Isosorbide for angina-related symptoms. - Atorvastatin 40 mg for hyperlipidemia. - Gemfibrozole 600 mg for hyperlipidemia. - Tylenol for pain management. - Breo inhaler for respiratory management. - Carvedilol for hypertension and heart failure management. 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 - Lives with family, daughter present during consultation - Recently discharged from a rehabilitation facility with plans for continued support at home Problem List - Urinary Tract Infection - Stroke (Cerebrovascular Accident) - Anemia - Type 2 Diabetes Mellitus - Kidney Dysfunction - Hyperlipidemia - Hypertension - Sleep Apnea with nocturnal hypoxia - wheelchair bound - chronic urine incontinence where diapers Patient Instructions - Use heating pads and massage for back pain relief; consider procuring a portable massager. - Continue monitoring blood glucose levels and adhere to diabetic management as prescribed. - Follow prescribed courses of antibiotics to address urinary tract infection. - Use medication doses as discussed, especially with altered renal function. - Maintain scheduled follow-up with nephrology for kidney assessment and management. - Consult cardiology regarding the combined use of Atorvastatin and Gemfibrozole. - Observe for any new or worsening symptoms and seek immediate care if necessary. - Continue prescribed medications for chronic conditions. - Perform daily weight checks to monitor for fluid retention. - Attend all scheduled medical appointments, including cardiology on March 11 and pulmonary on March 15. - Ensure adherence to nightly oxygen therapy and follow-up on sleep study requirements. Orders: Orders Urine Culture Today Z87.440 - Personal history of urinary (tract) infections AMB Urinalysis Automated Today Z13.9 - Encounter for screening, unspecified Medications: New ciprofloxacin HCl 250 mg PO BID 5 days 10 tabs 0RF Refilled blood sugar diagnostic (FreeStyle Lite Strips) Test four times a day or as directed. 100 ea 0RF E11.9 - Type 2 diabetes mellitus without complications
[2025-03-10 13:00] VITALS: BP 130/66; PULSE 66; O2SAT 94; BMI 31.9
== END 2025-03-10 13:36 | disposition home or self-care (01) ==
LOC: HO.HMCC 12:49
PROVIDERS: PCP Internal Medicine; Visit Provider Internal Medicine
DX: I12.9 Hypertensive chronic kidney disease with stage 1 through stage 4 chronic kidney disease, or unspecified chronic kidney disease (principal); E11.8 Type 2 diabetes mellitus with unspecified complications; N18.32 Chronic kidney disease, stage 3b; I50.32 Chronic diastolic (congestive) heart failure; M54.50 Low back pain, unspecified; G89.29 Other chronic pain; N30.01 Acute cystitis with hematuria; R60.0 Localized edema; D63.8 Anemia in other chronic diseases classified elsewhere; R06.09 Other forms of dyspnea; M85.80 Other specified disorders of bone density and structure, unspecified site; J45.40 Moderate persistent asthma, uncomplicated

== ENCOUNTER 2025-03-15 12:46 | Outpatient (AMB) | payer MEDICARE, MEDICAID, SELFPAY ==
--- NOTE | 2025-03-15 12:56 | A.OFFVIS_ITS ---
Vital Signs 03/15/25 13:05 Height 5 ft Weight 162 lb 0.636 oz BMI 31.6 BP 108/60 Blood Pressure Location Rt brachial Position Sitting Pulse 61 Pulse Source Pulse Oximeter Pulse Oximetry (%) 97 Oxygen Delivery Method Room Air Intake Visit Reasons: Nocturnal Hypoxemia Allergies Penicillins [PENICILLINS] Allergy (Unknown, Verified 03/15/25 13:09) Rash lactose Adverse Reaction (Mild, Verified 03/15/25 13:09) Unknown shellfish Allergy (Mild, Uncoded 03/15/25 13:09) Unknown HPI HPI Nocturnal Hypoxemia: Details: Enma Staples is a pleasant 74 year old female, former minimal smoker, with underlying CHF, DMII, HTN, CVA 01/2024 on Eliquis. since the last visit, she has been discharged from SNF and is living with daughter. She was initially referred by cardiology for pulmonary evaluation after recent home sleep study revealed significant nocturnal hypoxemia <88% for 321 minutes, negative for NOE 06/2024. She has undergone repeat studies that continue to be negative for NOE, positive for nocturnal hypoxemia, and she has been compliant with nocturnal supplemental oxygen using 1-2L NOC. At the last visit, 6MWT performed and did not require supplemental oxygen with exertion. PFT revealed moderate obstructive ventilatory defect with positive bronchodilator response and was started on Breo. Since she reports improvements however daughter continues to hear wheezing with exertion as well as labored breathing with any exertion. Denies cough or chest tightness. She denies any visits to urgent care or hospitalizations related to respiratory distress since the last visit. [facility] Medical History Leg edema CVA (cerebral vascular accident) (HFpEF) heart failure with preserved ejection fraction Left leg weakness SOB (shortness of breath) Gout of big toe Elevated troponin Bilateral wheezing Increasing shortness of breath 2+ pitting edema Cataract Hypertension Gout Surgical History History of cholecystectomy H/O: hysterectomy Social History Household Members: Children Housing: House Do you presently have visiting nurse or other home services: No Alcohol intake: never Comment: refusing alarms Patient Tobacco Use Status: Former Tobacco user e-Cigarette/Vaping Use: Never Used Second Hand Smoke Exposure: No Advance Directives Date on File: 04/08/24 service: No Current occupational status: retired Cognitive needs: No Hearing needs: No Vision needs: No Female Reproductive History Menstrual Age of Menarche: 20 Review of Systems Const Denies chills, Denies excessive sweating, Denies fever(s), Denies headache(s) and Denies night sweats Eyes Denies dry eyes, Denies irritation and Denies itchy eyes ENT Reports Normal hearing present, Denies headache(s), Denies nasal congestion, Denies nasal discharge, Denies post nasal drip and Denies sore throat Card Denies chest pain, Denies chest pain at rest, Denies chest pain with activity, Denies claudication, Reports dyspnea on exertion and Denies paroxysmal nocturnal dyspnea Resp Denies change in phlegm color, Denies chest congestion, Denies cough, Denies excessive phlegm production, Denies pain on inspiration, Denies pain with cough, Reports dyspnea on exertion, Denies stridor and Reports wheezing Musc Denies myalgias Neuro Reports Normal hearing present and Denies headache(s) Endo Denies excessive sweating [place]/Lymph Denies lymphadenopathy Aller/Immun Denies itchy eyes, Denies seasonal rhinorrhea and Reports wheezing Physical Exam Vital Signs: Last Vital Signs Pulse 61 03/15/25 13:05 BP 108/60 03/15/25 13:05 Pulse Ox 97 03/15/25 13:05 Oxygen Delivery Method Room Air 03/15/25 13:05 BMI result Body Mass Index 31.6 Const General: cooperative, healthy appearing, comfortable, no acute distress, well developed and alert Nutritional Appearance: obese Orientation/consciousness: patient oriented x3 Limitations: wheelchair HEENT Head: Yes normal to inspection, Yes normocephalic and Yes atraumatic Ears: hearing grossly normal bilaterally and external ears normal Eyes General: appearance normal, both eyes and all related structures Eyelids: Yes eyelids normal Sclerae: sclerae normal EOM: EOMs intact bilaterally Neck Neck: Yes normal visual inspection and Yes no lymphadenopathy Lymphatic: no lymphadenopathy noted Chest Chest palpation & inspection: normal inspection of the chest Resp Effort & Inspection: normal respiratory effort, able to speak in complete sentences, no audible wheezes, no cough, no stridor, not tachypneic, no tripod positioning and no use of accessory muscles Auscultation: clear to auscultation bilaterally Cardio Jugular venous distension: no JVD Rate: regular rate Rhythm: regular rhythm Skin Other: warm, dry General skin exam: no rashes or lesions noted Neuro General: patient oriented x3 Cranial nerves: Yes Normal hearing present Cognition (Neuro): normal cognition Extrem Other: 1-2+ pitting edema BLE Psych Appearance: grossly normal and well kempt Speech and movement: Normal speech and movement present and Clear speech present Affect: normal affect Attitude: cooperative Thought process: Normal thought process present Thought content: Normal thought content present Insight: Good insight present (Psych) Judgement: Good judgement present (Psych) Assessment & Plan Assessment & Plan (1) Asthma: Code(s): J45.909 - Unspecified asthma, uncomplicated Category: Medical (2) Nocturnal hypoxemia: Code(s): G47.34 - Idiopathic sleep related nonobstructive alveolar hypoventilation Category: Medical (3) Dyspnea on exertion: Code(s): R06.09 - Other forms of dyspnea Category: Medical (4) (HFpEF) heart failure with preserved ejection fraction: Code(s): I50.30 - Unspecified diastolic (congestive) heart failure Category: Medical Qualifiers: Heart failure chronicity: chronic Qualified Code(s): I50.32 - Chronic diastolic (congestive) heart failure Plan Reviewed recent in lab sleep study required for discharge from SNF, which again revealed negative NOE, positive for nocturnal hypoxemia, average 95%, lowest 82% and <88% for 8.5 minutes with recommendations for 1L supplemental oxygen NOC. Will increase Breo 100 mcg to 200mcg for suboptimal control. Discussed probability of dyspnea being related to deconditioning given that she resided at a SNF x 1 year. Will monitor symptoms and call if no improvement. All questions were answered and patient is in agreement of plan. Will follow-up in 6-8 weeks or sooner if needed. Medications: New fluticasone furoate-vilanterol 200-25 mcg/dose (Breo Ellipta) 1 inh inhalation DAILY 60 ea 3RF Coding Level of Care Code Est Pt Level 4 (35485) Diagnoses Asthma J45.909 Nocturnal hypoxemia G47.34 Dyspnea on exertion R06.09 Chronic heart failure with preserved ejection fraction I50.32 Heart failure chronicity: chronic
[2025-03-15 13:05] VITALS: BP 108/60; PULSE 61; O2SAT 97; BMI 31.6
== END 2025-03-15 13:29 | disposition home or self-care (01) ==
LOC: HO.HPS 12:47
PROVIDERS: PCP Family Medicine Geriatric Medicine; Visit Provider Nurse Practitioner Family
DX: J45.909 Unspecified asthma, uncomplicated (principal); G47.34 Idiopathic sleep related nonobstructive alveolar hypoventilation; R06.09 Other forms of dyspnea; I50.32 Chronic diastolic (congestive) heart failure
CPT/HCPCS: 99214

== ENCOUNTER → 2025-03-15 12:46 | Outpatient (BNVA) | payer MEDICARE, MEDICAID, SELFPAY | PROVIDERS: PCP Family Medicine Geriatric Medicine; Visit Provider Nurse Practitioner Family | DX: I11.0 Hypertensive heart disease with heart failure (principal); I50.32 Chronic diastolic (congestive) heart failure; J45.909 Unspecified asthma, uncomplicated; G47.34 Idiopathic sleep related nonobstructive alveolar hypoventilation; R06.09 Other forms of dyspnea; Z87.891 Personal history of nicotine dependence; Z79.01 Long term (current) use of anticoagulants | CPT/HCPCS: 99212 ==

== ENCOUNTER → 2025-03-19 23:59 | Outpatient (BNV) | payer MEDICARE, MEDICAID, SELFPAY | PROVIDERS: PCP Internal Medicine; Visit Provider Internal Medicine | DX: I13.0 Hypertensive heart and chronic kidney disease with heart failure and stage 1 through stage 4 chronic kidney disease, or unspecified chronic kidney disease (principal); E11.22 Type 2 diabetes mellitus with diabetic chronic kidney disease; I50.32 Chronic diastolic (congestive) heart failure; N18.4 Chronic kidney disease, stage 4 (severe) | CPT/HCPCS: G0180 ==

== ENCOUNTER 2025-03-23 09:41 | Outpatient (REF) | payer MEDICARE, MEDICAID, SELFPAY ==
[2025-03-23 10:16] LABS: MANUAL DIFF FLAG NO
[2025-03-23 10:45] LABS: Basophils Percent Auto 0.1 % (0-2); Eosinophils Absolute Auto 0.5 X10*3/uL (0.0-0.4); Eosinophils Percent Auto 6.6 % (0-4); Hematocrit 26.6 % (37.0-47.0); Hemoglobin 8.3 g/dl (12.0-16.0); Imm Gran Abs Auto 0.23 X10*3/uL (0.00-0.03); Imm Gran Pct Auto 2.9 % (0.0-0.4); Lymphocytes Absolute Auto 2.7 X10*3/uL (1.2-4.9); Lymphocytes Percent Auto 34.1 % (20-40); Mean Corpuscular HGB Conc 31.2 g/dl (31.0-35.0); Mean Platelet Volume 11.2 fL (9.4-12.3); Monocytes Absolute Auto 0.8 X10*3/uL (0.1-1.2); Monocytes Percent Auto 10.4 % (2-11); Neutrophils Absolute Auto 3.7 x10*3/uL (2.0-8.3); Neutrophils Percent Auto 45.9 % (45-73); Platelet Count 217 X10*3/uL (160-400); Red Blood Count 2.86 X10*6/uL (4.20-5.50); Red Cell Distribution Width 15.6 % (11.0-16.0)
[2025-03-23 10:55] LABS: Estimated Average Glucose 140 mg/dL; Hemoglobin A1C 105.6584 umol/L; Hemoglobin A1c % 6.5 % (<6.0); Total Hemoglobin (HGBA1C) 2226.3264 umol/L
[2025-03-23 11:07] LABS: Appearance Urine Cloudy; Color Urine Yellow; Glucose Urine UA 500 mg/dL (Negative); Leukocyte Esterase Urine Large (3+) (Negative); Nitrite Urine Negative (Negative); PH 5.5 (5.0-9.0); Specific Gravity - Urine 1.015 (1.005-1.025); UMIC TRIGGER UA YES; Urine Blood Moderate (2+) (Negative); Urine Ketones Negative (Negative); Urine Protein 100 (2+) mg/dL (Neg-Trace)
[2025-03-23 11:09] LABS: Anion Gap 14 (12-20); Blood Urea Nitrogen 58 mg/dL (9-16); Calcium 9.4 mg/dL (8.4-10.2); Carbon Dioxide 17 mmol/L (22-29); Chloride 115 mmol/L (96-108); Estimated Glomerular Filt Rate 20; Glucose Random 134 mg/dL (60-115); Potassium 5.2 mmol/L (3.3-5.1); Sodium 141 mmol/L (135-145)
[2025-03-23 11:11] LABS: Bacteria Urine 4+ (None Seen); Hyaline Casts Urine 0-2 /LPF (0-2); RBC Urine >20 /HPF (0-2); Squamous Epithelial Cell Urine 0-2 /HPF (0-2); WBC Urine >50 /HPF (0-5)
== END 2025-03-23 09:42 | disposition home or self-care (01) ==
LOC: HO.LAB 09:41
PROVIDERS: Internal Medicine Hypertension Specialist; PCP Internal Medicine; Visit Provider Psychiatry & Neurology Neurology
DX: N39.0 Urinary tract infection, site not specified (principal); N17.9 Acute kidney failure, unspecified; N18.9 Chronic kidney disease, unspecified; Z13.1 Encounter for screening for diabetes mellitus
CPT/HCPCS: 36415; 80048; 81001; 83036; 85025; 87086; 87088; 87186

== ENCOUNTER 2025-03-29 09:13 | Outpatient (AMB) | payer MEDICARE, MEDICAID, SELFPAY ==
--- NOTE | 2025-03-29 09:30 | MHC.OFFVIS ---
Vital Signs 03/29/25 09:36 Height 5 ft BMI Reason not done Patient refused/unable BP 118/60 Blood Pressure Location Lt brachial Position Sitting Pulse 62 Pulse Source Pulse Oximeter Intake Visit Reasons: r/s 03/11/25 6 mos followup Allergies Penicillins [PENICILLINS] Allergy (Unknown, Verified 03/15/25 13:09) Rash lactose Adverse Reaction (Mild, Verified 03/15/25 13:09) Unknown shellfish Allergy (Mild, Uncoded 03/15/25 13:09) Unknown Medication List - Last Reconciled 03/29/25 by EDWARD AlvaresC acetaminophen 500 mg PO DAILY PRN amlodipine mg PO apixaban (Eliquis) 5 mg PO BID atorvastatin 40 mg PO BEDTIME Basaglar KwikPen U-100 Insulin (insulin glargine) 18 units (0.18 mL) subcut QAM 90 days NS blood sugar diagnostic (FreeStyle Lite Strips) three times per day blood sugar diagnostic (FreeStyle Lite Strips) Test three times a day or as directed. blood-glucose meter (FreeStyle Lite Meter kit) As Directed blood-glucose meter (FreeStyle Lite Meter kit) As directed to test blood sugar 3 times per day Breo Ellipta 100-25 mcg/dose (fluticasone furoate-vilanterol) 1 inh inhalation DAILY NS carvedilol 25 mg PO BID cholecalciferol (vitamin D3) 25 mcg PO DAILY dapagliflozin propanediol (Farxiga) 5 mg PO DAILY fluticasone furoate-vilanterol 200-25 mcg/dose (Breo Ellipta) 1 inh inhalation DAILY furosemide 20 mg PO DAILY gabapentin 100 mg PO DAILY gemfibrozil 600 mg PO BID insulin lispro (Humalog KwikPen (U-100) Insulin) 1 sliding scale dose subcut QIDACHS isosorbide mononitrate ER 30 mg PO DAILY lancets (FreeStyle Lancets) Test 3 times per day lancets (FreeStyle Lancets) Check blood sugar three times a day as directed. magnesium hydroxide (Milk of Magnesia) 5 mL PO DAILY PRN melatonin 6 mg PO BEDTIME PRN multivitamin with minerals 1 tab PO DAILY nitrofurantoin monohyd/m-cryst 100 mg (Macrobid) 100 mg PO DAILY 3 days pen needle, diabetic Use four times a day or as directed. sodium bicarbonate 650 mg PO BID tamsulosin (Flomax) 0.4 mg PO BEDTIME HPI HPI r/s 03/11/25 6 mos followup: Details: Enma Staples is a 74-year-old female past medical history of prior smoking, hypertension, diabetes, heart failure with preserved EF, CVA who presents for follow-up. Today she reports she has been feeling well. She has been wearing oxygen at night as directed. She has no chest discomfort at rest or with activity. She denies having shortness of breath, PND, orthopnea or edema. No palpitations, presyncope, syncope or recurrent falls. She continues on Eliquis with no signs of bleeding. She has not had any recurrent neurological changes. Daughter is present. She now resides at home with her daughter. [facility] Medical History Leg edema CVA (cerebral vascular accident) (HFpEF) heart failure with preserved ejection fraction Left leg weakness SOB (shortness of breath) Gout of big toe Elevated troponin Bilateral wheezing Increasing shortness of breath 2+ pitting edema Cataract Hypertension Gout Surgical History History of cholecystectomy H/O: hysterectomy Social History Household Members: Children Housing: House Do you presently have visiting nurse or other home services: No Alcohol intake: never Comment: refusing alarms Patient Tobacco Use Status: Former Tobacco user e-Cigarette/Vaping Use: Never Used Second Hand Smoke Exposure: No Advance Directives Date on File: 04/08/24 service: No Current occupational status: retired Cognitive needs: No Hearing needs: No Vision needs: No Female Reproductive History Menstrual Age of Menarche: 20 Review of Systems Const All systems reviewed & are unremarkable except as noted in HPI and below Reports weakness (left leg - able with walk using walker) ENT Denies dizziness Card Denies chest pain, Denies chest pain with activity, Denies syncope, Denies rapid heart rate, Denies pedal edema, Denies edema, Reports leg edema, Denies lightheadedness, Denies palpitations, Denies dyspnea, Denies dyspnea on exertion and Denies orthopnea Resp Denies cough, Denies dyspnea and Denies dyspnea on exertion GI Denies hematochezia and Denies change in stool character Musc Reports abnormal gait, Denies muscle cramps, Reports muscle weakness, Denies numbness, Denies radiating pain into limb and Denies tingling Neuro Reports abnormal gait, Denies dizziness, Denies syncope, Denies numbness, Denies tingling and Reports weakness (left leg - able with walk using walker) Endo Denies palpitations Physical Exam Vital Signs: Last Vital Signs Pulse 62 03/29/25 09:36 BP 118/60 03/29/25 09:36 Const Other: Sitting in wheelchair General: cooperative, healthy appearing, comfortable and no acute distress Orientation/consciousness: patient oriented x3 HEENT Head: Yes normal to inspection Neck Neck: Yes normal visual inspection Resp Effort & Inspection: normal respiratory effort Auscultation: clear to auscultation bilaterally, no crackles, no rales, no rhonchi and no wheezes Cardio Jugular venous distension: no JVD Rate: regular rate Rhythm: regular rhythm Heart sounds: S1 normal heart sound present, S2 normal heart sound present, no murmurs and no rubs Neuro General: patient oriented x3 Extrem General: Yes normal to inspection Psych Appearance: grossly normal Mental Status: mental status grossly normal Speech and movement: Normal speech and movement present Assessment & Plan Assessment & Plan (1) (HFpEF) heart failure with preserved ejection fraction: Code(s): I50.30 - Unspecified diastolic (congestive) heart failure Category: Medical Qualifiers: Heart failure chronicity: chronic Qualified Code(s): I50.32 - Chronic diastolic (congestive) heart failure Plan: History of heart failure with preserved EF. Echocardiogram from 02/07/24 shows EF 65-70%, severe LVH, normal RV, abnormal diastolic function. Her heart failure was thought to be related to uncontrolled hypertension, LVH. She has been on Lasix with control of symptoms. A nuclear stress test was done 08/17/2024 showing no ischemia, fixed perfusion defect probably from diaphragm attenuation, basal lateral wall can not exclude nontransmural infarct. She had a renal duplex 07/13/2024 showing no evidence of renal artery stenosis. She did have a sleep study done on 07/30/2024 which was negative for obstructive sleep apnea however did show nocturnal hypoxia and she now wears O2 at night. For blood pressure she has been on amlodipine, carvedilol and Lasix. Blood pressure today is well controlled at 118/60. She is not fluid overloaded on examination. The need for good blood pressure control reviewed. Low-salt diet discussed. Weight control and increasing physical activity as tolerated recommended. Cardiology follow-up in 6 months, sooner if needed. (2) Hypertension: Code(s): I10 - Essential (primary) hypertension Category: Medical Qualifiers: Hypertension type: unspecified Qualified Code(s): I10 - Essential (primary) hypertension Plan: Blood pressure goal less than 130/80. Well (3) CVA (cerebral vascular accident): Code(s): I63.9 - Cerebral infarction, unspecified Category: Medical Plan: [facility] [place] 03/02/2024 with inability to walk, leg weakness. A brain MRI did show multiple embolic looking acute right HELENA ischemic infarcts, multiple bilateral small chronic infarcts. She was evaluated by Neurology. Recommendation was for anticoagulation for at least 6 months with cardiac evaluation. She did wear a cardiac event monitor on 07/20/24 420 of the 30 days showing sinus rhythm with average heart rate 63, rare SVE, no atrial fibrillation was seen. She has no reports of heart palpitations. She continues on Eliquis at this time. Clinically she is in sinus rhythm. Will check a 1 week Holter monitor to evaluate for AFib. If Holter monitor is negative for AFib will check with her primary copier technician regarding use of implanted loop recorder. She does have some anemia with no signs of active bleeding that is being evaluated (4) Nocturnal hypoxemia: Code(s): G47.34 - Idiopathic sleep related nonobstructive alveolar hypoventilation Category: Medical Plan: Compliant with O2 at night. (5) Hyperlipidemia: Code(s): E78.5 - Hyperlipidemia, unspecified Category: Medical Plan: [place] LDL goal less than 100. She has been on atorvastatin and gemfibrozil. Daughter states she has not taken gemfibrozil in the last 2 weeks as she ran out. Will have her stop gemfibrozil and check fasting lipids on atorvastatin 40 mg daily. Plan I discussed maintaining atorvastatin while discontinuing gemfibrozil for cholesterol management. Emphasized the importance of fasting before cholesterol testing to ensure accurate readings. Eliquis continuation remains crucial unless atrial fibrillation is conclusively excluded following further monitoring. Peripheral edema management may entail revising amlodipine dosage if symptoms persist. I outlined this comprehensive care plan and encouraged alertness to alternative specialist opinions. We agreed on a coordinated care strategy, centered on addressing her multifaceted health concerns primarily through current cardiovascular diagnostics. Future evaluations to focus on collective health improvements across her medication profile. I proposed a six-month outpatient re-evaluation unless circumstances necessitate earlier intervention. Patient comprehension of plans and compliance is affirmed. Orders: Orders ECG 7 day holter monitor Today I63.9 - Cerebral infarction, unspecified Lipid Panel Today E11.9 - Type 2 diabetes mellitus without complications Patient Instructions: - Continue atorvastatin for cholesterol and monitor fasting lab results. - Stop taking gemfibrozil; will be reassessed later. - Stay on Eliquis unless instructed otherwise after monitoring. - Fast overnight before cholesterol test. - If edema worsens, discuss potential medication adjustments. - Maintain low-sodium diet for blood pressure. - Wear the Holter monitor as instructed and avoid baths. - Attend upcoming kidney test appointments. - Call the office if symptoms worsen or for any concerns. - Return for re-evaluation in six months, or sooner if needed. Patient was informed and verbally consented to the use of an ambient scribe for clinic note documentation during this visit. Visit time spent on chart review, interview, assessment, orders, documentation. Coding Level of Care Code Est Pt Level 4 (94613) Complex EM visit Add On G2211 Diagnoses Chronic heart failure with preserved ejection fraction I50.32 Heart failure chronicity: chronic Hypertension, unspecified type I10 Hypertension type: unspecified CVA (cerebral vascular accident) I63.9 Nocturnal hypoxemia G47.34 Hyperlipidemia E78.5 Time Spent (min) 28
[2025-03-29 09:36] VITALS: BP 118/60; PULSE 62
== END 2025-03-29 10:00 | disposition home or self-care (01) ==
LOC: HO.HCS 09:14
PROVIDERS: PCP Internal Medicine; Visit Provider Nurse Practitioner Family
DX: I50.32 Chronic diastolic (congestive) heart failure (principal); I10 Essential (primary) hypertension; I63.9 Cerebral infarction, unspecified; G47.34 Idiopathic sleep related nonobstructive alveolar hypoventilation; E78.5 Hyperlipidemia, unspecified
CPT/HCPCS: 99214; G2211

== ENCOUNTER → 2025-03-29 09:13 | Outpatient (BNVA) | payer MEDICARE, MEDICAID, SELFPAY | PROVIDERS: PCP Internal Medicine; Visit Provider Nurse Practitioner Family | DX: I11.0 Hypertensive heart disease with heart failure (principal); I50.32 Chronic diastolic (congestive) heart failure; G47.34 Idiopathic sleep related nonobstructive alveolar hypoventilation; E78.5 Hyperlipidemia, unspecified; Z86.73 Personal history of transient ischemic attack (TIA), and cerebral infarction without residual deficits | CPT/HCPCS: 99212 ==

== ENCOUNTER 2025-03-31 08:49 | Outpatient (REF) | payer MEDICARE, MEDICAID, SELFPAY ==
[2025-03-31 10:08] LABS: Cholesterol 200 mg/dL (<200); HDL Cholesterol 37 mg/dL (>40); LDL Cholesterol Calculated 132 mg/dL (<100); Triglycerides 156 mg/dL (<150)
== END 2025-03-31 08:50 | disposition home or self-care (01) ==
LOC: HO.LAB 08:49
PROVIDERS: PCP Internal Medicine; Visit Provider Nurse Practitioner Family
DX: Z13.89 Encounter for screening for other disorder (principal)
CPT/HCPCS: 36415; 80061

== ENCOUNTER 2025-04-02 09:59 | Outpatient (AMB) | payer MEDICARE, MEDICAID, SELFPAY ==
[2025-04-02 10:05] VITALS: BP 84/50; PULSE 64; O2SAT 95
--- NOTE | 2025-04-02 10:05 | HO.NEPHOV_ITS ---
Vital Signs 04/02/25 10:05 Height 5 ft BP 84/50 L Blood Pressure Location Rt brachial Position Sitting Pulse 64 Pulse Source Pulse Oximeter Pulse Oximetry (%) 95 Oxygen Delivery Method Room Air Intake Visit Reasons: per Dr Villalpando Abnormal labs/ LVM Floor Associate Required: No Accompanied by: Daughter Allergies Penicillins [PENICILLINS] Allergy (Unknown, Verified 04/02/25 10:07) Rash lactose Adverse Reaction (Mild, Verified 04/02/25 10:07) Unknown shellfish Allergy (Mild, Uncoded 03/15/25 13:09) Unknown Medication List - Last Reconciled 04/02/25 by Cristhian Dolan MD acetaminophen 500 mg PO DAILY PRN amlodipine mg PO apixaban (Eliquis) 5 mg PO BID atorvastatin 40 mg PO BEDTIME Basaglar KwikPen U-100 Insulin (insulin glargine) 18 units (0.18 mL) subcut QAM 90 days NS blood sugar diagnostic (FreeStyle Lite Strips) three times per day blood sugar diagnostic (FreeStyle Lite Strips) Test three times a day or as directed. blood-glucose meter (FreeStyle Lite Meter kit) As Directed blood-glucose meter (FreeStyle Lite Meter kit) As directed to test blood sugar 3 times per day Breo Ellipta 100-25 mcg/dose (fluticasone furoate-vilanterol) 1 inh inhalation DAILY NS carvedilol 25 mg PO BID cholecalciferol (vitamin D3) 25 mcg PO DAILY dapagliflozin propanediol (Farxiga) 5 mg PO DAILY fluticasone furoate-vilanterol 200-25 mcg/dose (Breo Ellipta) 1 inh inhalation DAILY furosemide 20 mg PO DAILY insulin lispro (Humalog KwikPen (U-100) Insulin) 1 sliding scale dose subcut QIDACHS isosorbide mononitrate ER 30 mg PO DAILY lancets (FreeStyle Lancets) Test 3 times per day lancets (FreeStyle Lancets) Check blood sugar three times a day as directed. magnesium hydroxide (Milk of Magnesia) 5 mL PO DAILY PRN melatonin 6 mg PO BEDTIME PRN multivitamin with minerals 1 tab PO DAILY pen needle, diabetic Use four times a day or as directed. sodium bicarbonate 650 mg PO BID HPI Comments Details: 73-year-old woman with a history of longstanding diabetes mellitus for more than 20 years. She was recently hospitalized and was found to have acute kidney injury. During workup she was found to have about 5 g of proteinuria. At the time of discharge serum creatinine decreased to 2.8 mg/dL. She appeared euvolemic. She was on valsartan and Jardiance which were placed on hold. Today she was accompanied by her daughter. Blood pressure is still suboptimal blood sugar is suboptimal. She has no shortness of breath at rest. She has shortness of breath on exertion. no nausea or vomiting. No urinary symptoms. 10/08/24 Seen by [facility] cardiology Sleep apnea requiring O2 01/11/25 Still at [facility] On LAsix 40 mg PRN 04/02/25 74-year-old female presenting with persistent urinary tract infection (UTI) complicated by acute kidney injury (DANISH). After a UTI diagnosis in mid-February, initial treatment with Ciprofloxacin was altered to Nitrofurantoin due to resistance patterns and drug allergies. Despite the new antibiotic regimen, follow-up urine cultures remain positive for infection as of March 23. Complications include acute kidney injury, with lab results indicating elevated potassium levels, requiring consideration in treatment decisions. Symptomatically, the patient has noted intermittent confusion, possibly related to the ongoing UTI. Blood pressure variations, with a notably low reading compared to usual clinical figures, and significant fluctuations in blood glucose levels relate to her diabetic status, compounding the management challenge. [facility] Medical History Leg edema CVA (cerebral vascular accident) (HFpEF) heart failure with preserved ejection fraction Left leg weakness SOB (shortness of breath) Gout of big toe Elevated troponin Bilateral wheezing Increasing shortness of breath 2+ pitting edema Cataract Hypertension Gout Surgical History History of cholecystectomy H/O: hysterectomy Social History Household Members: Children Housing: House Do you presently have visiting nurse or other home services: No Alcohol intake: never Comment: refusing alarms Patient Tobacco Use Status: Former Tobacco user e-Cigarette/Vaping Use: Never Used Second Hand Smoke Exposure: No Advance Directives Date on File: 04/08/24 service: No Current occupational status: retired Cognitive needs: No Hearing needs: No Vision needs: No Female Reproductive History Menstrual Age of Menarche: 20 Physical Exam Vital Signs: Last Vital Signs Pulse 64 04/02/25 10:05 BP 84/50 L 04/02/25 10:05 Pulse Ox 95 04/02/25 10:05 Oxygen Delivery Method Room Air 04/02/25 10:05 Last Vital Signs Temp 96.5 F L 02/13/24 11:05 Pulse 72 02/13/24 11:41 Resp 16 02/13/24 11:41 BP 103/58 L 02/13/24 11:05 Pulse Ox 95 02/13/24 11:05 O2 Del Method Room Air 02/13/24 11:05 BMI result Body Mass Index 34.3 Awake. Comfortable. Neck is supple. Mucosa moist. Lungs clear Heart S1-S2 heard no gallop. Abdomen soft. Extremities no edema. No involuntary movements. No myoclonus. Const Nutritional Appearance: well nourished Orientation/consciousness: patient oriented x3 HEENT Head: No normal to inspection Mouth: moist mucous membranes Neck Neck: Yes supple and Yes no JVD Resp Auscultation: crackles Cardio Jugular venous distension: no JVD Palpation: no palpable S3 and no palpable S4 Heart sounds: no rubs GI Palpation (GI): Soft to palpation and nontender Percussion: No Fluid wave present General: Yes no CVA tenderness Back/Spine/Pelvis Back: no CVA tenderness Skin General skin exam: no rashes or lesions noted Neuro General: patient oriented x3 Extrem General: No clubbing Results Reviewed Results Reviewed: E.Coli UTI Nephrology Results: Hgb 8.3 g/dl (12.0-16.0) L 03/23/25 WBC 8.0 X10*3/uL (4.8-10.8) 03/23/25 Plt Count 217 X10*3/uL (160-400) 03/23/25 Sodium 141 mmol/L (135-145) 03/23/25 Potassium 5.2 mmol/L (3.3-5.1) H 03/23/25 Chloride 115 mmol/L (96-108) H 03/23/25 Carbon Dioxide 17 mmol/L (22-29) L 03/23/25 BUN 58 mg/dL (9-16) H 03/23/25 Creatinine 2.34 mg/dL (0.5-1.4) H 03/23/25 Calcium 9.4 mg/dL (8.4-10.2) 03/23/25 Urine Protein 100 (2+) mg/dL (Neg-Trace) H 03/23/25 Assessment & Plan Assessment & Plan (1) Acute kidney injury superimposed on chronic kidney disease: Code(s): N17.9 - Acute kidney failure, unspecified; N18.9 - Chronic kidney disease, unspecified Category: Medical Plan 73-year-old woman with chronic kidney disease. She has proteinuria most likely due to underlying diabetic nephropathy. 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 Baseline creatinine is around 2.2 mg/dL. She sustained DANISH due to hypoperfusion. Renal function has improved and close to baseline. Creatinine at baseline with eGFR of 28 ml/mt At this point the goal is to slow the progression of kidney disease Continue to avoid nephrotoxic agents. Agree with SGLT-2 inhibitor Change LAsix at 20 mg dialy We discussed importance of tight control of blood sugar and blood pressure to slow the portion disease. BP is well controlled Anemia due to underlying chronic kidney disease. No absolute indication for Epogen yet She will follow closely. Splenic mass- follow with PCP 04/02/25 Superimposed DANISH Hyperkalemia Resistant UTI requiring IV Antibiotics Hospital admission is required to manage the persistent urinary tract infection with intravenous antibiotics due to resistance to oral therapy along with superimposed DANISH And hyperkalemia Blood glucose fluctuations will be managed in the context of her diabetic care, acknowledging the infection's impact on control. Hospitalization for IV antibiotics was recommended Coding Level of Care Code Est Pt Level 4 (51008) Diagnoses Acute kidney injury superimposed on chronic kidney disease N17.9; N18.9
== END 2025-04-02 10:19 | disposition home or self-care (01) ==
LOC: HO.HKA 10:00
PROVIDERS: PCP Internal Medicine; Visit Provider Internal Medicine Hypertension Specialist
DX: N17.9 Acute kidney failure, unspecified (principal); N18.9 Chronic kidney disease, unspecified
CPT/HCPCS: 99214

== ENCOUNTER → 2025-04-02 09:59 | Outpatient (BNVA) | payer MEDICARE, MEDICAID, SELFPAY | PROVIDERS: PCP Internal Medicine; Visit Provider Internal Medicine Hypertension Specialist | DX: Z13.89 Encounter for screening for other disorder (principal) | CPT/HCPCS: 99212 ==

== ENCOUNTER 2025-04-02 16:53 | Inpatient (IN) | payer MEDICARE, OTHER, SELFPAY ==
[2025-04-02 17:12] VITALS: BP 127/56; PULSE 65; RESP 16; TEMP 36.5; O2SAT 96; BMI 31.9
--- NOTE | 2025-04-02 17:18 | ED_ITS ---
HPI - Female Genitourinary General Chief complaint: Urogenital-Female Stated complaint: DR saavedra sent over for IV antibiotics needed Time Seen by Provider: 04/02/25 23:50 Source: patient Mode of arrival: ambulatory Limitations: no limitations History of Present Illness ED Provider: HPI Narrative: Patient is 74 years old with history of type 2 diabetes, HFpEF, CVA with left- sided weakness on Eliquis, CKD, hyperlipidemia, hypertension been having UTI symptoms for last 1 month been treated with different antibiotics in his still having the UTI patient has been feeling weak and tired without any significant appetite 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 sent the patient to ER for hydration and IV antibiotics patient's baseline creatinine is around 1.9 with frequent flare-up had urine culture done which showed E coli sensitive to ceftriaxone patient received nitrofurantoin and Cipro as outpatient for UTI Related Data Home Medications ?Medication ?Instructions ?Recorded ?Confirmed acetaminophen 500 mg tablet 500 mg PO DAILY PRN Pain 02/06/24 04/02/25 insulin lispro 100 unit/mL 1 sliding scale dose subcut QIDACHS 03/01/24 04/02/25 subcutaneous pen (Humalog KwikPen (U-100) Insulin) atorvastatin 40 mg tablet 40 mg PO BEDTIME 04/07/24 04/02/25 isosorbide mononitrate 30 mg 30 mg PO DAILY 04/07/24 04/02/25 tablet,extended release 24 hr melatonin 3 mg capsule 6 mg PO BEDTIME PRN Sleep 04/07/24 04/02/25 multivitamin with minerals 1 tab PO DAILY 04/07/24 04/02/25 cholecalciferol (vitamin D3) 25 25 mcg PO DAILY 05/28/24 04/02/25 mcg (1,000 unit) capsule magnesium hydroxide 400 mg/5 mL 5 ml PO DAILY PRN 05/28/24 04/02/25 oral suspension (Milk of Magnesia) amlodipine 2.5 mg tablet mg PO 10/08/24 04/02/25 sodium bicarbonate 650 mg tablet 650 mg PO BID 10/08/24 04/02/25 Previous Rx's ?Medication ?Instructions ?Recorded lancets 28 gauge (FreeStyle #300 ea 02/06/24 Lancets) blood-glucose meter (FreeStyle #1 ea 02/07/24 Lite Meter kit) blood-glucose meter (FreeStyle #1 ea 02/13/24 Lite Meter kit) pen needle, diabetic 32 gauge x #100 ea 02/13/24 1/ apixaban 5 mg tablet (Eliquis) 5 mg PO BID #60 tabs 03/04/24 blood sugar diagnostic (FreeStyle #100 ea 03/13/24 Lite Strips) furosemide 20 mg tablet 20 mg PO DAILY edema #90 tabs 01/11/25 Breo Ellipta 100 mcg-25 mcg/dose 1 inh inhalation DAILY #60 ea 01/25/25 powder for inhalation (fluticasone furoate-vilanterol) fluticasone furoate 200 1 inh inhalation DAILY #60 ea 03/15/25 mcg-vilanterol 25 mcg/dose inhalation powder (Breo Ellipta) carvedilol 25 mg tablet 25 mg PO BID #60 tabs 03/16/25 blood sugar diagnostic (FreeStyle #200 strips 03/18/25 Lite Strips) lancets 28 gauge (FreeStyle #200 ea 03/18/25 Lancets) dapagliflozin propanediol 5 mg 5 mg PO DAILY #90 tabs 03/19/25 tablet (Farxiga) Basaglar KwikPen U-100 Insulin 100 18 unit (0.18 mL) subcut QAM 90 03/24/25 unit/mL (3 mL) subcutaneous days #15 mL (insulin glargine) Allergies Allergy/AdvReac Type Severity Reaction Status Date / Time Penicillins [PENICILLINS] Allergy Unknown Rash Verified 04/02/25 17:14 lactose AdvReac Mild Unknown Verified 04/02/25 17:14 shellfish Allergy Mild Unknown Uncoded 03/15/25 13:09 Review of Systems 2 Review of Systems: Yes all other systems are reviewed and are negative [facility] Past Medical History Medical History Leg edema CVA (cerebral vascular accident) (HFpEF) heart failure with preserved ejection fraction Left leg weakness SOB (shortness of breath) Gout of big toe Elevated troponin Bilateral wheezing Increasing shortness of breath 2+ pitting edema Cataract Hypertension Gout Surgical History History of cholecystectomy H/O: hysterectomy Social History Social History Household Members: Children Housing: House Do you presently have visiting nurse or other home services: No Alcohol intake: never Comment: refusing alarms Patient Tobacco Use Status: Former Tobacco user Smoked in Last 30 Days: No e-Cigarette/Vaping Use: Never Used Second Hand Smoke Exposure: No Use of substances other than those prescribed or required for medical reasons: No Advance Directives: No Advance Directives Information Provided: No Advance Directives Date on File: 04/08/24 Do you have a plan to hurt others: No Plan Patient : No service: No Current occupational status: retired Cognitive needs: No Hearing needs: No Vision needs: No Physical Exam 2 Vital Signs: Vital Signs: Last Vital Signs Temp 98.2 F 04/03/25 05:58 Pulse 60 04/03/25 05:58 Resp 16 04/03/25 05:58 BP 131/68 04/03/25 05:58 Pulse Ox 97 04/03/25 05:58 O2 Del Method Room Air 04/03/25 05:58 BMI result Body Mass Index 31.9 Appearance: Alert. Oriented X3. No acute distress. Eyes: No pallor or icterus ENT: Pharynx normal. Oral Mucosa moist Neck: Normal inspection. Neck supple. CVS: Normal heart rate and rhythm. Pulses normal. Respiratory: No respiratory distress. Equal air entry bilateral, no wheezing/rales/rhonchi Abdomen: Soft and nontender. Bowel sounds are present, no mass palpable, no CVA tenderness Skin: Skin warm and dry. Normal skin color. Normal skin turgor. Extremities: No lower extremity edema. No calf tenderness Neuro: Oriented X 3. No motor deficit. No sensory deficit.No cerebellar signs , cranial nerves II-XII intact Course Course Course Narrative: 04/02/25 1719 ANGEL Hidalgo This is a Rapid Medical Examination (RME) performed by Jennifer Moon PA-C in triage. Full HPI, ROS, assessment and treatment plan per primary provider in the Main ED. Hx: 74 yo F hx CKD here from 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's office for IV abx. +UTI, resistent to abx , sent here for IV. Plan: labs, UA, lactic, BC Reviewed 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'snote. Requesting IV antibiotics/admission for persistent UTI resistant to oral therapy along with superimposed DANISH and hyperkalemia. Medications Administered Discontinued Medications Generic Name Dose Route Start Last Admin Trade Name Freq PRN Reason Stop Dose Admin Ceftriaxone Sodium 1 gm 04/02/25 23:56 04/03/25 00:19 Ceftriaxone Sodium 1 Gm Vial IVPUSH 04/02/25 23:57 1 gm ONCE ONE Administration Sodium Chloride 500 mls @ 500 mls/hr 04/03/25 02:15 04/03/25 04:00 Ns IV 04/03/25 03:14 Infused .Q1H [facility] Infusion Medical Decision Making Medical Decision Making [facility] Narrative: Patient with CKD with UTI previous culture grew E coli sensitive to cefuroxime will give IV antibiotics in 04/20 patient urine grew Pseudomonas will wait for the final culture report at this time patient is afebrile with normal leukocyte count and lactic acid level Differential Diagnosis Differential Diagnoses: The differential diagnosis associated with the presentation includes UTI/bacteremia/pyelonephritis/CKD Admission/Observation Consideration of admission/observation: Escalation of care including admission/observation considered Consult Healthcare Provider Management of the patient was discussed with: Hospitalist Lab Data [facility] Lab Attestation statement: I reviewed the patient's lab results. 04/03/25 04:23 04/03/25 04:23 Labs: Lab Results 04/02/25 Range/Units 17:58 WBC 6.8 (4.8-10.8) X10*3/uL RBC 3.02 L (4.20-5.50) X10*6/uL Hgb 9.1 L (12.0-16.0) g/dl Hct 27.9 L (37.0-47.0) % MCV 92.4 (80.0-98.0) fL MCH 30.1 (27.0-33.0) pg MCHC 32.6 (31.0-35.0) g/dl RDW 14.7 (11.0-16.0) % Plt Count 219 (160-400) X10*3/uL MPV 10.8 (9.4-12.3) fL Immature Gran % (Auto) 1.0 H (0.0-0.4) % Neut % (Auto) 38.8 L (45-73) % Lymph % (Auto) 35.4 (20-40) % Cobb % (Auto) 13.6 H (2-11) % Eos % (Auto) 11.1 H (0-4) % Baso % (Auto) 0.1 (0-2) % Lymph # (Auto) 2.4 (1.2-4.9) X10*3/uL Cobb # (Auto) 0.9 (0.1-1.2) X10*3/uL Eos # (Auto) 0.8 H (0.0-0.4) X10*3/uL Baso # (Auto) 0.0 (0.0-0.2) X10*3/uL Abs Immat Gran (auto) 0.07 H (0.00-0.03) X10*3/uL Absolute Neuts (auto) 2.6 (2.0-8.3) x10*3/uL Absolute Nucleated RBC 0.000 (0.0-0.012) X10*3/uL Nucleated RBC % (auto) 0.0 (0.0-0.2) /100WBC Sodium 142 (135-145) mmol/L Potassium 4.8 (3.3-5.1) mmol/L Chloride 113 H (96-108) mmol/L Carbon Dioxide 18 L (22-29) mmol/L Anion Gap 16 (12-20) BUN 45 H (9-16) mg/dL Creatinine 2.47 H (0.5-1.4) mg/dL Estim Creat Clear Calc 17.7 Estimated GFR 19 Random Glucose 217 H (60-115) mg/dL Lactic Acid 1.1 (0.5-2.0) mmol/L Calcium 9.5 (8.4-10.2) mg/dL Magnesium 2.3 (1.6-2.6) mg/dL Total Bilirubin 0.2 (0.0-1.0) mg/dL AST 17 (5-31) U/L ALT 14 (0-31) U/L Alkaline Phosphatase 188 H (39-117) U/L Total Protein 6.7 (6.5-8.0) g/dL Albumin 4.4 (3.5-5.0) g/dL Discharge Plan Discharge Clinical Impression: Acute kidney injury superimposed on chronic kidney disease UTI (urinary tract infection) Qualifiers: Urinary tract infection type: acute cystitis Hematuria presence: without hematuria Qualified Code(s): N30.00 - Acute cystitis without hematuria Patient Disposition: Admitted As Inpatient
[2025-04-02 18:03] LABS: MANUAL DIFF FLAG NO
[2025-04-02 18:05] LABS: Basophils Percent Auto 0.1 % (0-2); Eosinophils Absolute Auto 0.8 X10*3/uL (0.0-0.4); Eosinophils Percent Auto 11.1 % (0-4); Hematocrit 27.9 % (37.0-47.0); Hemoglobin 9.1 g/dl (12.0-16.0); Imm Gran Abs Auto 0.07 X10*3/uL (0.00-0.03); Lymphocytes Absolute Auto 2.4 X10*3/uL (1.2-4.9); Lymphocytes Percent Auto 35.4 % (20-40); Mean Corpuscular HGB Conc 32.6 g/dl (31.0-35.0); Mean Corpuscular Hemoglobin 30.1 pg (27.0-33.0); Mean Corpuscular Volume 92.4 fL (80.0-98.0); Mean Platelet Volume 10.8 fL (9.4-12.3); Monocytes Absolute Auto 0.9 X10*3/uL (0.1-1.2); Monocytes Percent Auto 13.6 % (2-11); Neutrophils Absolute Auto 2.6 x10*3/uL (2.0-8.3); Neutrophils Percent Auto 38.8 % (45-73); Platelet Count 219 X10*3/uL (160-400); Red Blood Count 3.02 X10*6/uL (4.20-5.50); Red Cell Distribution Width 14.7 % (11.0-16.0); White Blood Count 6.8 X10*3/uL (4.8-10.8)
[2025-04-02 18:20] LABS: Lactic Acid 1.1 mmol/L (0.5-2.0)
[2025-04-02 18:27] LABS: Alanine Aminotransferase 14 U/L (0-31); Albumin Level 4.4 g/dL (3.5-5.0); Anion Gap 16 (12-20); Aspartate Amino Transferase 17 U/L (5-31); Bilirubin Total 0.2 mg/dL (0.0-1.0); Blood Urea Nitrogen 45 mg/dL (9-16); Calcium 9.5 mg/dL (8.4-10.2); Carbon Dioxide 18 mmol/L (22-29); Chloride 113 mmol/L (96-108); Creatinine Clr Calc Pharmacy 17.7; Estimated Glomerular Filt Rate 19; Glucose Random 217 mg/dL (60-115); Magnesium 2.3 mg/dL (1.6-2.6); Potassium 4.8 mmol/L (3.3-5.1); Sodium 142 mmol/L (135-145); Total Protein 6.7 g/dL (6.5-8.0)
[2025-04-02 19:59] LABS: Alkaline Phosphatase 188 U/L (39-117)
[2025-04-02 23:59] VITALS: BP 132/86; PULSE 56; RESP 16; TEMP 36.4; O2SAT 97
[2025-04-03] VITALS (7 sets, daily range): BP systolic 126–181; BP diastolic 60–87; PULSE 55–60; RESP 14–18; TEMP 36.4–36.8; O2SAT 95–98; BMI 36.2
[2025-04-03] MEDS: cefTRIAXone sodium 1 GM VIAL IVPUSH ×2 (00:19→23:20)
--- NOTE | 2025-04-03 00:22 | PC.NURSE ---
Pt reports 4/10 suprapubic pain Pt medicated per mar Pts daughter at bedside Plan of care ongoing.
--- NOTE | 2025-04-03 01:51 | PM.IMHP ---
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 The patient reports that she has been symptomatic for 1 month and has been treated with nitrofurantoin and ciprofloxacin outpatient without improvement. She is now experiencing weakness, fatigue and decreased appetite. She denies any nausea, vomiting, abdominal pain, frequency of urination, urgency with urination or dysuria. Her urine culture was reviewed and is susceptible to ceftriaxone, the patient will be admitted for IV antibiotics. She was also found to have and DANISH therefore we will monitor and treat with IV fluids as well. Review of Systems Constitutional: Constitutional: Denies chills, Reports fatigue, Denies fever(s), Denies headache(s) and Reports weakness Eyes: Eyes: Denies change in vision and Denies photophobia ENT: Denies headache(s), Denies nasal congestion, Denies nasal discharge and Denies sore throat Cardiovascular: Cardiovascular: Denies chest pain, Denies syncope, Denies rapid heart rate, Denies leg edema and Denies dyspnea Respiratory: Respiratory: Denies chest congestion, Denies cough, Denies dyspnea and Denies wheezing Gastrointestinal: Gastrointestinal: Denies abdominal pain, Denies diarrhea, Denies nausea and Denies vomiting Genitourinary: Genitourinary: Denies difficulty voiding, Denies dysuria and Denies urinary urgency Musculoskeletal: Musculoskeletal: Denies myalgias Integumentary/Breasts: Skin/Breast: Denies rash Neurologic: Denies confusion, Denies syncope, Denies headache(s) and Reports weakness Psychiatric: Psychiatric: Denies confusion Endocrine: Endocrine: Reports fatigue Hematologic/Lymphatic: Hematologic/Lymphatic: Denies easy bleeding and Denies easy bruising Allergic/Immunologic: Allergic/Immunologic: Denies wheezing [facility] Medical History Leg edema CVA (cerebral vascular accident) (HFpEF) heart failure with preserved ejection fraction Left leg weakness SOB (shortness of breath) Gout of big toe Elevated troponin Bilateral wheezing Increasing shortness of breath 2+ pitting edema Cataract Hypertension Gout Functional capacity: independent ambulation Surgical History History of cholecystectomy H/O: hysterectomy Social History Household Members: Children Housing: House Do you presently have visiting nurse or other home services: No Alcohol intake: never Comment: refusing alarms Patient Tobacco Use Status: Former Tobacco user Smoked in Last 30 Days: No e-Cigarette/Vaping Use: Never Used Second Hand Smoke Exposure: No Use of substances other than those prescribed or required for medical reasons: No Advance Directives: No Advance Directives Information Provided: No Advance Directives Date on File: 04/08/24 Do you have a plan to hurt others: No Plan Patient : No service: No Current occupational status: retired Cognitive needs: No Hearing needs: No Vision needs: No Narrative: No smoking, alcohol or drug use Meds Allergies Allergy/AdvReac Type Severity Reaction Status Date / Time Penicillins [PENICILLINS] Allergy Unknown Rash Verified 04/02/25 17:14 lactose AdvReac Mild Unknown Verified 04/02/25 17:14 shellfish Allergy Mild Unknown Uncoded 03/15/25 13:09 Active Medications: Current Medications Dextrose (Dextrose 50 % 25 Gm/50 Ml Syringe) 25 gm IVPUSH Q15M PRN; Protocol PRN Reason: per Hypoglycemia Standing Ord. Glucose (Glucose Gel 15 Gm Gel..Gram.) 15 gm PO Q15M PRN; Protocol PRN Reason: per Hypoglycemia Standing Ord. Insulin Glargine (Insulin Glargine,Hum.Rec.Anlog 100 Unit/Ml 10 Ml Vial) 12 unit SUBCUT DAILY [facility] Insulin Human Lispro (Insulin Lispro 100 Unit/Ml 3 Ml Vial) 0 unit SUBCUT QIDACHS [facility]; Protocol Home Medications ?Medication ?Instructions ?Recorded ?Confirmed ?Last Taken ?Type acetaminophen 500 mg tablet 500 mg PO DAILY PRN Pain 02/06/24 04/02/25 Unknown History insulin lispro 100 unit/mL 1 sliding scale dose subcut QIDACHS 03/01/24 04/02/25 04/07/24 History subcutaneous pen (Humalog KwikPen (U-100) Insulin) atorvastatin 40 mg tablet 40 mg PO BEDTIME 04/07/24 04/02/25 04/07/24 History isosorbide mononitrate 30 mg 30 mg PO DAILY 04/07/24 04/02/25 Unknown History tablet,extended release 24 hr melatonin 3 mg capsule 6 mg PO BEDTIME PRN Sleep 04/07/24 04/02/25 Unknown History multivitamin with minerals 1 tab PO DAILY 04/07/24 04/02/25 Unknown History cholecalciferol (vitamin D3) 25 25 mcg PO DAILY 05/28/24 04/02/25 Unknown History mcg (1,000 unit) capsule magnesium hydroxide 400 mg/5 mL 5 ml PO DAILY PRN 05/28/24 04/02/25 Unknown History oral suspension (Milk of Magnesia) amlodipine 2.5 mg tablet mg PO 10/08/24 04/02/25 Unknown History sodium bicarbonate 650 mg tablet 650 mg PO BID 10/08/24 04/02/25 Unknown History Physical Exam Vital Signs and Narrative: Vital Signs: Last Vital Signs Temp 97.5 F 04/02/25 23:59 Pulse 56 04/02/25 23:59 Resp 16 04/02/25 23:59 BP 132/86 04/02/25 23:59 Pulse Ox 97 04/02/25 23:59 O2 Del Method Room Air 04/02/25 23:59 BMI result Body Mass Index 31.9 General: AOx3, no acute distress Resp: CTA bilaterally CVS: S1, S2, RRR GI: +BS, NT, no distention Skin: Warm, dry Neuro: Cranial nerves II-XII grossly intact bilaterally. Motor grossly intact bilaterally Extremities: No LE edema Psych: Appropriate affect Const: General: No confusion Orientation/consciousness: No confusion Eyes: Direct Ophthalmoscopy: No photophobia Neuro: General: No confusion Results Labs 04/02/25 17:58 04/02/25 17:58 Labs: Laboratory Results - last 24 hr 04/02/25 17:58 MCV 92.4 MCH 30.1 MCHC 32.6 RDW 14.7 Plt Count 219 MPV 10.8 Immature Gran % (Auto) 1.0 H Neut % (Auto) 38.8 L Lymph % (Auto) 35.4 [place] % (Auto) 13.6 H Eos % (Auto) 11.1 H Baso % (Auto) 0.1 Lymph # (Auto) 2.4 [place] # (Auto) 0.9 Eos # (Auto) 0.8 H Baso # (Auto) 0.0 Abs Immat Gran (auto) 0.07 H Absolute Neuts (auto) 2.6 Absolute Nucleated RBC 0.000 Nucleated RBC % (auto) 0.0 Anion Gap 16 Estim Creat Clear Calc 17.7 Estimated GFR 19 Random Glucose 217 H Lactic Acid 1.1 Calcium 9.5 Magnesium 2.3 Total Bilirubin 0.2 AST 17 ALT 14 Alkaline Phosphatase 188 H Total Protein 6.7 Albumin 4.4 Assessment and Plan (1) UTI (urinary tract infection): Qualifiers: Urinary tract infection type: acute cystitis Hematuria presence: without hematuria Qualified Code(s): N30.00 - Acute cystitis without hematuria Status: Acute (2) Acute kidney injury superimposed on chronic kidney disease: Status: Acute (3) Hyperchloremic metabolic acidosis: Status: Acute (4) Class 1 obesity: Status: Acute Plan Patient is a 74-year-old female with a past medical history significant for CKD 3B, type 2 diabetes on insulin, HFpEF, history CVA with subsequent left-sided weakness on Eliquis, HLD, HTN, class 1 obesity and moderate persistent asthma, who presented to the ED per 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 UTI -- failed outpatient treatment - WBC 6.8, vital signs stable, no sepsis - urine culture reviewed from 03/23/2025, was susceptible to ceftriaxone - started on ceftriaxone in ED, continue - monitor CBC and BMP DANISH on CKD - baseline creatinine 1.5, current creatinine 2.47 - NS 500 mL - monitor BMP - avoid nephrotoxins Hyperchloremic metabolic acidosis - secondary to poor p.o. intake, DANISH and UTI - IV fluids as above - monitor BMP Type 2 diabetes - Lantus 12 units QHS - sliding scale insulin - diabetic diet History CVA - continue Eliquis HLD - continue statin HTN - continue amlodipine and carvedilol Chronic HFpEF, no acute exacerbation - hold Lasix due to AVR Moderate persistent asthma, no acute exacerbation - continue home inhalers Full code VTE prophylaxis: Eliquis Patient with UTI with multiple failed outpatient treatments complicated by DANISH on CKD, requiring admission for at least 2 midnights stay for IV antibiotics, fluids and monitoring. Quality Stroke Does the patient have a stroke diagnosis?: No VTE Prior VTE?: No VTE Risk Level:: Medical - moderate - high VTE Device Contraindication: Treatment Not Indicated VTE Drug Contraindication: N/A - Med Ordered
--- NOTE | 2025-04-03 02:15 | PC.NURSE ---
Pts daughter Jerri can be reached at [phone]
[2025-04-03] MEDS: 0.9 % Sodium Chloride 500 ML IV (02:52)
--- NOTE | 2025-04-03 02:57 | PC.NURSE ---
Pt medicated per mar Pt requested and given warm blanket Pt advised urine sample needed, per pt will notify RN/TECH when she needs to go. Plan of care ongoing.
[2025-04-03 03:58] LABS: Appearance Urine Cloudy; Color Urine Yellow; Glucose Urine UA >=1000 mg/dL (Negative); Leukocyte Esterase Urine Large (3+) (Negative); Nitrite Urine Positive (Negative); Specific Gravity - Urine 1.015 (1.005-1.025); UMIC TRIGGER UACC YES; Urine Blood Moderate (2+) (Negative); Urine Ketones Negative (Negative); Urine Protein 300 (3+) mg/dL (Neg-Trace)
[2025-04-03 04:01] LABS: Bacteria Urine 1+ (None Seen); Hyaline Casts Urine 0-2 /LPF (0-2); Squamous Epithelial Cell Urine 0-2 /HPF (0-2); UACC Culture Trigger YES; WBC Urine >50 /HPF (0-5)
[2025-04-03 04:30] LABS: Hematocrit 30.3 % (37.0-47.0); Hemoglobin 9.7 g/dl (12.0-16.0); Mean Corpuscular Hemoglobin 29.5 pg (27.0-33.0); Mean Corpuscular Volume 92.1 fL (80.0-98.0); Mean Platelet Volume 10.6 fL (9.4-12.3); Platelet Count 200 X10*3/uL (160-400); Red Blood Count 3.29 X10*6/uL (4.20-5.50); Red Cell Distribution Width 14.6 % (11.0-16.0); White Blood Count 6.2 X10*3/uL (4.8-10.8)
[2025-04-03 04:42] LABS: Anion Gap 12 (12-20); Blood Urea Nitrogen 42 mg/dL (9-16); Calcium 9.5 mg/dL (8.4-10.2); Carbon Dioxide 17 mmol/L (22-29); Chloride 118 mmol/L (96-108); Creatinine Clr Calc Pharmacy 21.3; Estimated Glomerular Filt Rate 24; Glucose Random 167 mg/dL (60-115); Potassium 4.2 mmol/L (3.3-5.1); Sodium 143 mmol/L (135-145)
[2025-04-03 07:19] LABS: Glucose, Whole Blood 136 mg/dL (60-115)
--- NOTE | 2025-04-03 07:31 | MHC.EDTECH ---
Patient given breakfast
[2025-04-03] MEDS: 0.9 % Sodium Chloride Flush 3 ML SYRINGE IVFLUSH ×2 (07:49→20:22)
--- NOTE | 2025-04-03 09:08 | PHA.MEDREC ---
Addendum entered by Jordan Goodman [facility] 04/03/25 09:32: REVIEWED BY [facility] Original Note: Pharmacy Consult ? Medication Reconciliation Pharmacy has completed the medication reconciliation. Spoke with patients daughter (Jerri) at bedside. She had a list of medications from home. She confirmed 3 tablets of amlodipine 2.5 mg daily. Patient takes furosemide every other day, last taken yesterday. Patient has been using a Lantus vial at home for her 18 units at bedtime, she has Basaglar at home but has not started using it yet. She uses Humalog SS which Jerri had written down (entered in med list). Patient is no longer taking tamsulosin, gabapentin, trazodone, or gemfibrozil. Jerri reports she had her morning medications yesterday but not her evening ones.
[2025-04-03] MEDS: Lactated Ringers 1,000 ML 100 ML IVCONT (09:15)
--- NOTE | 2025-04-03 09:27 | MHC.EDTECH ---
Patient token in wheelchair to bathroom and washed up and total bed changed
[2025-04-03 11:29] LABS: Creatinine Urine 23.56 mg/dL
[2025-04-03] MEDS: Insulin Lispro 100 UNIT/ML 3 ML VIAL SUBCUT (12:24)
[2025-04-03 12:44] LABS: Glucose, Whole Blood 185 mg/dL (60-115)
--- NOTE | 2025-04-03 12:52 | P.PNIM_ITS ---
Subjective Subjective Date of Service: 04/03/25 Interval History: c/o dysuria no flank pain and no fever Review of Systems Review of Systems: Yes all other systems are reviewed and are negative Physical Exam 2 Vital Signs: Vital Signs: Last Vital Signs Temp 97.8 F 04/03/25 07:48 Pulse 59 04/03/25 07:48 Resp 16 04/03/25 07:48 BP 126/65 04/03/25 07:48 Pulse Ox 98 04/03/25 07:48 O2 Del Method Room Air 04/03/25 07:48 BMI result Body Mass Index 31.9 Gen: in no acute distress HEENT: sclera anicteric, moist mucus membranes Neck: supple Lungs: clear to auscultation bilaterally Heart: regular rate and rhythm, no murmurs Abd: soft, suprapubic tenderness, non-distended Ext: no edema Skin: warm/well-perfused Neuro: alert and oriented x3, no focal findings Psych: appropriate affect Objective Data Active Medications Acetaminophen (Acetaminophen 325 Mg Tablet) 975 mg PO Q6H PRN PRN Reason: Pain, Mild 1-3,fever,headache Calcium Carbonate (Calcium Carbonate 750 Mg Tab.Chew) 750 mg PO Q4H PRN PRN Reason: Heartburn Ceftriaxone Sodium (Ceftriaxone Sodium 1 Gm Vial) 1 gm IVPUSH Q24H [facility] Dextrose (Dextrose 50 % 25 Gm/50 Ml Syringe) 25 gm IVPUSH Q15M PRN; Protocol PRN Reason: per Hypoglycemia Standing Ord. Glucose (Glucose Gel 15 Gm Gel..Gram.) 15 gm PO Q15M PRN; Protocol PRN Reason: per Hypoglycemia Standing Ord. Lactated Ringer's (Lr) 1,000 mls @ 100 mls/hr IVCONT .Q10H [facility] Stop: 04/03/25 18:29 Last Admin: 04/03/25 09:15 Dose: 100 mls/hr Documented By: FRANCISCO JAVIER Insulin Glargine (Insulin Glargine,Hum.Rec.Anlog 100 Unit/Ml 10 Ml Vial) 12 unit SUBCUT BEDTIME [facility] Insulin Human Lispro (Insulin Lispro 100 Unit/Ml 3 Ml Vial) 0 unit SUBCUT QIDACHS [facility]; Protocol Last Admin: 04/03/25 12:24 Dose: 2 unit Documented By: MYRNA Magnesium Hydroxide (Milk Of Magnesia 30 Ml Oral.Susp) 30 ml PO DAILY PRN PRN Reason: Constipation Melatonin (Melatonin 3 Mg Tablet) 6 mg PO BEDTIME PRN PRN Reason: Insomnia Ondansetron HCl (Ondansetron Hcl 4 Mg/2 Ml Vial) 4 mg IVPUSH Q8H PRN PRN Reason: Nausea and Vomiting Oxycodone HCl (Oxycodone Hcl Immed Release 5 Mg Tablet) 5 mg PO Q6H PRN PRN Reason: Pain, Severe (Pain Scale 7-10) Sodium Chloride (0.9 % Sodium Chloride Flush 3 Ml Syringe) [facility] Last Admin: 04/03/25 07:49 Dose: 3 ml Documented By: DINORAH Tramadol HCl (Tramadol Hcl 50 Mg Tablet) 50 mg PO Q6H PRN PRN Reason: Pain, Moderate(Pain Scale 4-6) Labs 04/03/25 04:23 04/03/25 04:23 Labs: Laboratory Results - last 24 hr 04/02/25 04/03/25 04/03/25 17:58 03:51 04:23 MCV 92.4 92.1 MCH 30.1 29.5 MCHC 32.6 32.0 RDW 14.7 14.6 Plt Count 219 200 MPV 10.8 10.6 Immature Gran % (Auto) 1.0 H Neut % (Auto) 38.8 L Lymph % (Auto) 35.4 [place] % (Auto) 13.6 H Eos % (Auto) 11.1 H Baso % (Auto) 0.1 Lymph # (Auto) 2.4 [place] # (Auto) 0.9 Eos # (Auto) 0.8 H Baso # (Auto) 0.0 Abs Immat Gran (auto) 0.07 H Absolute Neuts (auto) 2.6 Absolute Nucleated RBC 0.000 0.000 Nucleated RBC % (auto) 0.0 0.0 Anion Gap 16 12 Estim Creat Clear Calc 17.7 21.3 Estimated GFR 19 24 POC Glucose Random Glucose 217 H 167 H Lactic Acid 1.1 Calcium 9.5 9.5 Magnesium 2.3 Total Bilirubin 0.2 AST 17 ALT 14 Alkaline Phosphatase 188 H Total Protein 6.7 Albumin 4.4 Urine Color Yellow Urine Appearance Cloudy Urine pH 6.0 Ur Specific [place] 1.015 Urine Protein 300 (3+) H Urine Glucose (UA) >=1000 H Urine Ketones Negative Urine Blood Moderate (2+) H Urine Nitrite Positive H Ur Leukocyte Esterase Large (3+) H Urine RBC 6-10 H Urine WBC >50 H Ur Squamous Epith Cells 0-2 Urine Bacteria 1+ Hyaline Casts 0-2 Ur Random Sodium Urine Creatinine 04/03/25 04/03/25 04/03/25 07:15 11:12 12:10 MCV MCH MCHC RDW Plt Count MPV Immature Gran % (Auto) Neut % (Auto) Lymph % (Auto) [place] % (Auto) Eos % (Auto) Baso % (Auto) Lymph # (Auto) [place] # (Auto) Eos # (Auto) Baso # (Auto) Abs Immat Gran (auto) Absolute Neuts (auto) Absolute Nucleated RBC Nucleated RBC % (auto) Anion Gap Estim Creat Clear Calc Estimated GFR POC Glucose 136 H 185 H Random Glucose Lactic Acid Calcium Magnesium Total Bilirubin AST ALT Alkaline Phosphatase Total Protein Albumin Urine Color Urine Appearance Urine pH Ur Specific [place] Urine Protein Urine Glucose (UA) Urine Ketones Urine Blood Urine Nitrite Ur Leukocyte Esterase Urine RBC Urine WBC Ur Squamous Epith Cells Urine Bacteria Hyaline Casts Ur Random Sodium 77.0 Urine Creatinine 23.56 Assessment and Plan (1) UTI (urinary tract infection): Status: Acute Plan d1 for 74yo F with CKD3, DM2 on insulin, HFpEF, hx CVA with L-sided weakness on apixaban, HLD, HTN, and asthma sent in by child development associate teacher for treatment of UTI resistant to ciprofloxacin, did not improve with nitrofurantoin either, also sent in for DANISH/CKD3 UTI - UCx 03/23/25 E coli resistant to ampicillin, ciprofloxacin, gentamicin and TMP- SMX but sensitive to ceftriaxone which we will continue; follow BCx + UCx repeats DANISH/CKD3 - improving with IV fluid hydration; continue, baseline SCr around 1.8-1.9 DM2 - basal-bolus insulin hx CVA - apixaban, statin HTN - carvedilol, amlodipine chronic HFpEF - hold furosemide due to DANISH, continue carvedilol + amlodipine mod persistent asthma without acute exac - continue Breo, prn albuterol VTE ppx - apixaban dispo - eventual home In my clinical judgment, the patient requires continued inpatient hospitalization for the following reasons: IV ABX Total time managing care of this patient today: 35 minutes. Quality Stroke Does the patient have a stroke diagnosis?: No VTE Prior VTE?: No VTE Risk Level:: Medical - moderate - high VTE Device Contraindication: Treatment Not Indicated VTE Drug Contraindication: N/A - Med Ordered
[2025-04-03 16:33] LABS: Glucose, Whole Blood 86 mg/dL (60-115)
[2025-04-03 20:14] LABS: Glucose, Whole Blood 131 mg/dL (60-115)
[2025-04-03] MEDS: Insulin Glargine,Hum.rec.anlog 100 UNIT/ML 10 ML VIAL 12 UNIT SUBCUT (20:22)
[2025-04-03] MEDS: carvediloL 25 MG TABLET PO (20:22)
[2025-04-03] MEDS: Apixaban 5 MG TABLET PO (20:22)
[2025-04-03] MEDS: Atorvastatin Calcium 40 MG TABLET PO (20:22)
[2025-04-04 05:57] LABS: Hematocrit 32.7 % (37.0-47.0); Hemoglobin 10.1 g/dl (12.0-16.0); Mean Corpuscular HGB Conc 30.9 g/dl (31.0-35.0); Mean Corpuscular Hemoglobin 29.2 pg (27.0-33.0); Mean Corpuscular Volume 94.5 fL (80.0-98.0); Mean Platelet Volume 10.5 fL (9.4-12.3); Platelet Count 198 X10*3/uL (160-400); Red Blood Count 3.46 X10*6/uL (4.20-5.50); Red Cell Distribution Width 14.6 % (11.0-16.0); White Blood Count 6.3 X10*3/uL (4.8-10.8)
[2025-04-04 06:21] LABS: Anion Gap 13 (12-20); Blood Urea Nitrogen 29 mg/dL (9-16); Calcium 9.8 mg/dL (8.4-10.2); Carbon Dioxide 18 mmol/L (22-29); Chloride 118 mmol/L (96-108); Creatinine Clr Calc Pharmacy 28.6; Estimated Glomerular Filt Rate 31; Glucose Random 134 mg/dL (60-115); Potassium 4.5 mmol/L (3.3-5.1); Sodium 144 mmol/L (135-145)
[2025-04-04] MEDS: Acetaminophen 325 MG TABLET 975 MG PO (06:57)
[2025-04-04 07:01] VITALS: BP 152/70; PULSE 58; RESP 17; TEMP 36.6; O2SAT 98
[2025-04-04] MEDS: Apixaban 5 MG TABLET PO ×2 (07:15→20:48)
[2025-04-04] MEDS: amLODIPine Besylate 2.5 MG TABLET 7.5 MG PO (07:15)
[2025-04-04] MEDS: Empagliflozin 10 MG TABLET PO (07:15)
[2025-04-04] MEDS: Isosorbide Mononitrate 30 MG TAB.ER.24H PO (07:16)
[2025-04-04 07:20] LABS: Glucose, Whole Blood 134 mg/dL (60-115)
[2025-04-04] MEDS: 0.9 % Sodium Chloride Flush 3 ML SYRINGE IVFLUSH ×3 (07:29→20:48)
--- NOTE | 2025-04-04 09:59 | P.PNIM_ITS ---
Subjective Subjective Date of Service: 04/04/25 Interval History: dysuria resolved; no fever; SCr better Review of Systems Review of Systems: Yes all other systems are reviewed and are negative Physical Exam 2 Vital Signs: Vital Signs: Last Vital Signs Temp 98 F 04/04/25 07:01 Pulse 58 04/04/25 07:01 Resp 17 04/04/25 07:01 BP 152/70 H 04/04/25 07:01 Pulse Ox 98 04/04/25 07:01 O2 Del Method Room Air 04/04/25 07:01 BMI result Body Mass Index 36.2 Gen: in no acute distress HEENT: sclera anicteric, moist mucus membranes Neck: supple Lungs: clear to auscultation bilaterally Heart: regular rate and rhythm, no murmurs Abd: soft, non-tender, non-distended Ext: no edema Skin: warm/well-perfused Neuro: alert and oriented x3, no focal findings Psych: appropriate affect Objective Data Active Medications Acetaminophen (Acetaminophen 325 Mg Tablet) 975 mg PO Q6H PRN PRN Reason: Pain, Mild 1-3,fever,headache Last Admin: 04/04/25 06:57 Dose: 975 mg Documented By: CAPRI Albuterol Sulfate (Albuterol Sulfate 90 Mcg 8 Gm Inhaler) 2 puff INHALE RQ4H PRN PRN Reason: short of breath or wheez Amlodipine Besylate (Amlodipine Besylate 2.5 Mg Tablet) 7.5 mg PO DAILY [facility]; Protocol Last Admin: 04/04/25 07:15 Dose: 7.5 mg Documented By: CAPRI Apixaban (Apixaban 5 Mg Tablet) 5 mg PO BID [facility] Last Admin: 04/04/25 07:15 Dose: 5 mg Documented By: CAPRI Atorvastatin Calcium (Atorvastatin Calcium 40 Mg Tablet) 40 mg PO BEDTIME [facility] Last Admin: 04/03/25 20:22 Dose: 40 mg Documented By: HENRY Calcium Carbonate (Calcium Carbonate 750 Mg Tab.Chew) 750 mg PO Q4H PRN PRN Reason: Heartburn Carvedilol (Carvedilol 25 Mg Tablet) 25 mg PO BID [facility]; Protocol Last Admin: 04/04/25 07:16 Dose: Not Given Documented By: CAPRI Non-Admin Reason: HR 58 Ceftriaxone Sodium (Ceftriaxone Sodium 1 Gm Vial) 1 gm IVPUSH Q24H [facility] Last Admin: 04/03/25 23:20 Dose: 1 gm Documented By: HENRY Dextrose (Dextrose 50 % 25 Gm/50 Ml Syringe) 25 gm IVPUSH Q15M PRN; Protocol PRN Reason: per Hypoglycemia Standing Ord. Empagliflozin (Empagliflozin 10 Mg Tablet) 10 mg PO DAILY [facility] Last Admin: 04/04/25 07:15 Dose: 10 mg Documented By: CAPRI Fluticasone/Vilanterol (Fluticasone/Vilanterol 100/25 Blst.W.Dev) 1 puff INHALE RDAILY [facility] Glucose (Glucose Gel 15 Gm Gel..Gram.) 15 gm PO Q15M PRN; Protocol PRN Reason: per Hypoglycemia Standing Ord. Insulin Glargine (Insulin Glargine,Hum.Rec.Anlog 100 Unit/Ml 10 Ml Vial) 12 unit SUBCUT BEDTIME [facility] Last Admin: 04/03/25 20:22 Dose: 12 unit Documented By: HENRY Insulin Human Lispro (Insulin Lispro 100 Unit/Ml 3 Ml Vial) 0 unit SUBCUT QIDACHS [facility]; Protocol Last Admin: 04/04/25 07:18 Dose: Not Given Documented By: CAPRI Non-Admin Reason: No Insulin Coverage Isosorbide Mononitrate (Isosorbide Mononitrate 30 Mg Tab.Er.24h) 30 mg PO DAILY [facility]; Protocol Last Admin: 04/04/25 07:16 Dose: 30 mg Documented By: CAPRI Magnesium Hydroxide (Milk Of Magnesia 30 Ml Oral.Susp) 30 ml PO DAILY PRN PRN Reason: Constipation Melatonin (Melatonin 3 Mg Tablet) 6 mg PO BEDTIME PRN PRN Reason: Insomnia Ondansetron HCl (Ondansetron Hcl 4 Mg/2 Ml Vial) 4 mg IVPUSH Q8H PRN PRN Reason: Nausea and Vomiting Oxycodone HCl (Oxycodone Hcl Immed Release 5 Mg Tablet) 5 mg PO Q6H PRN PRN Reason: Pain, Severe (Pain Scale 7-10) Sodium Chloride (0.9 % Sodium Chloride Flush 3 Ml Syringe) 3 ml IVFLUSH QSHIFT [facility] Last Admin: 04/04/25 07:29 Dose: 3 ml Documented By: CAPRI Tramadol HCl (Tramadol Hcl 50 Mg Tablet) 50 mg PO Q6H PRN PRN Reason: Pain, Moderate(Pain Scale 4-6) Labs 04/04/25 05:31 04/04/25 05:31 Labs: Laboratory Results - last 24 hr 04/03/25 04/03/25 04/03/25 11:12 12:10 16:23 MCV MCH MCHC RDW Plt Count MPV Absolute Nucleated RBC Nucleated RBC % (auto) Anion Gap Estim Creat Clear Calc Estimated GFR POC Glucose 185 H 86 Random Glucose Calcium Ur Random Sodium 77.0 Urine Creatinine 23.56 04/03/25 04/04/25 04/04/25 20:10 05:31 07:17 MCV 94.5 MCH 29.2 MCHC 30.9 L RDW 14.6 Plt Count 198 MPV 10.5 Absolute Nucleated RBC 0.000 Nucleated RBC % (auto) 0.0 Anion Gap 13 Estim Creat Clear Calc 28.6 Estimated GFR 31 POC Glucose 131 H 134 H Random Glucose 134 H Calcium 9.8 Ur Random Sodium Urine Creatinine Microbiology Microbiology Results: Microbiology 04/03/25 00:10 Blood Culture - Preliminary Blood - Venous No growth after 24 hours. 04/02/25 17:58 Blood Culture - Preliminary Blood - Venous No growth after 24 hours. Assessment and Plan (1) UTI (urinary tract infection): Status: Acute Plan d2 for 74yo F with CKD3, DM2 on insulin, HFpEF, hx CVA with L-sided weakness on apixaban, HLD, HTN, and asthma sent in by it communications specialist for treatment of UTI resistant to ciprofloxacin, did not improve with nitrofurantoin either, also sent in for DANISH/CKD3 UTI - UCx 03/23/25 E coli resistant to ampicillin, ciprofloxacin, gentamicin and TMP- SMX but sensitive to ceftriaxone which we will continue; follow BCx + repeat UCx DANISH/CKD3 - improved with IV fluid hydration and SCr now at baseline or even better DM2 - basal-bolus insulin hx CVA - apixaban, statin HTN - carvedilol, amlodipine chronic HFpEF - held furosemide due to DANISH, continue carvedilol + amlodipine mod persistent asthma without acute exac - continue Breo, prn albuterol VTE ppx - apixaban dispo - PT consult In my clinical judgment, the patient requires continued inpatient hospitalization for the following reasons: IV ABX Total time managing care of this patient today: 35 minutes. Quality Stroke Does the patient have a stroke diagnosis?: No VTE Prior VTE?: No VTE Risk Level:: Medical - moderate - high VTE Device Contraindication: Treatment Not Indicated VTE Drug Contraindication: N/A - Med Ordered
[2025-04-04 11:32] LABS: Glucose, Whole Blood 178 mg/dL (60-115)
[2025-04-04] MEDS: Insulin Lispro 100 UNIT/ML 3 ML VIAL SUBCUT ×2 (11:39→16:46)
[2025-04-04 12:48] LABS: Glucose, Whole Blood 197 mg/dL (60-115)
[2025-04-04 15:46] VITALS: BP 162/76; PULSE 65; RESP 18; TEMP 36.8; O2SAT 98
--- NOTE | 2025-04-04 16:20 | MHC.CM.PN ---
PT REPORTS SHE LIVES WITH HER DAUGHTER WHO ASSISTS WITH HER CARE PT IS ACTIVE WITH [facility] FOR PT AND OT SERVICES AND USES A WALKER TO AMBULATE PT STATED SHE DID NOT HAVE A HCP YET, HOWEVER CM CALLED PTS DAUGHTER, UJLIANA, WHO CONFIRMS THERE IS A HCP NAMING HER THE AGENT, COPY REQUESTED PCP: BRIDGET IGLESIAS DELIVERED DCP: HOME, RESUME [facility] SERVICES DAUGHTER TO TRANSPORT
[2025-04-04 16:34] LABS: Glucose, Whole Blood 161 mg/dL (60-115)
[2025-04-04 20:00] VITALS: BP 172/77; PULSE 57; RESP 18; TEMP 36.9; O2SAT 98
[2025-04-04] MEDS: Atorvastatin Calcium 40 MG TABLET PO (20:48)
[2025-04-04 21:03] LABS: Glucose, Whole Blood 146 mg/dL (60-115)
[2025-04-04] MEDS: Insulin Glargine,Hum.rec.anlog 100 UNIT/ML 10 ML VIAL 12 UNIT SUBCUT (21:21)
[2025-04-04] MEDS: cefTRIAXone sodium 1 GM VIAL IVPUSH (23:17)
--- NOTE | 2025-04-04 23:24 | PC.NURSE ---
This RN assumed care at 1900, Pt denies Pain at this time, denies SOB/CP. Pt resting comfortable in bed at this time, Meds given per DEC, IV #20G RAC, intact, and flushing. RR even and non-labored at this time, no apparent distress, BSx4, skin intact:bruising to abd from insulin. Will continue to reassess
[2025-04-04 23:53] VITALS: BP 154/67; PULSE 59; RESP 18; TEMP 36.5; O2SAT 96
[2025-04-05 06:53] LABS: Anion Gap 14 (12-20); Blood Urea Nitrogen 26 mg/dL (9-16); Calcium 9.9 mg/dL (8.4-10.2); Carbon Dioxide 18 mmol/L (22-29); Chloride 115 mmol/L (96-108); Creatinine Clr Calc Pharmacy 27.9; Estimated Glomerular Filt Rate 30; Glucose Random 137 mg/dL (60-115); Potassium 4.8 mmol/L (3.3-5.1); Sodium 142 mmol/L (135-145)
[2025-04-05 07:13] LABS: Hematocrit 29.8 % (37.0-47.0); Hemoglobin 9.7 g/dl (12.0-16.0); Mean Corpuscular HGB Conc 32.6 g/dl (31.0-35.0); Mean Corpuscular Hemoglobin 29.6 pg (27.0-33.0); Mean Corpuscular Volume 90.9 fL (80.0-98.0); Platelet Count 221 X10*3/uL (160-400); Red Blood Count 3.28 X10*6/uL (4.20-5.50); Red Cell Distribution Width 14.4 % (11.0-16.0); White Blood Count 6.5 X10*3/uL (4.8-10.8)
[2025-04-05 07:47] LABS: Glucose, Whole Blood 141 mg/dL (60-115)
[2025-04-05 07:52] VITALS: BP 178/72
[2025-04-05 07:56] VITALS: PULSE 62
[2025-04-05] MEDS: carvediloL 25 MG TABLET PO (07:56)
[2025-04-05] MEDS: 0.9 % Sodium Chloride Flush 3 ML SYRINGE IVFLUSH (07:56)
[2025-04-05] MEDS: amLODIPine Besylate 2.5 MG TABLET 7.5 MG PO (07:56)
[2025-04-05] MEDS: Empagliflozin 10 MG TABLET PO (07:56)
[2025-04-05] MEDS: Isosorbide Mononitrate 30 MG TAB.ER.24H PO (07:56)
[2025-04-05] MEDS: Apixaban 5 MG TABLET PO (07:56)
[2025-04-05 08:11] VITALS: BP 186/84; PULSE 59; RESP 12; TEMP 36.1; O2SAT 95
[2025-04-05 08:26] VITALS: PULSE 59; RESP 18; O2SAT 97
[2025-04-05] MEDS: Fluticasone/Vilanterol 100/25 BLST.W.DEV 1 PUFF INHALE (08:26)
[2025-04-05 09:29] VITALS: BP 162/72
--- NOTE | 2025-04-05 11:05 | P.F2F_ITS ---
Service Date Service Date: 04/05/25 Encounter Date of encounter: 04/05/25 Reasons for Services Signs and symptoms assessed: attach PT evaluation from 04/05/25 Reason for long term: diabetic teaching, monitoring of unstable blood sugar, medication management, medication treatment and teach disease management Reason for physical therapy: home safety and mobility, therapeutic exercises, gait/transfer training, assess need for DME, ADL training and energy conservation Overseeing Care: Keeley Samuels Homebound: Leaving the home is medically contraindicated at this time without the asist of a device and/or another person due th the listed conditions above and below. Reason homebound: weakness related to hospital stay Certification: Based on the above findings, I certify that this patient is confined to the home and needs intermittent long term care, physical therapy and/or speech therapy, or continues to need occupational therapy. The patient is under my care, and I have initiated the establishment of the plan of care. The patient will be followed by a physician who will periodically review the plan of care. Time Spent With Patient Time: Total time managing care of this patient today ____ minutes.
--- NOTE | 2025-04-05 11:08 | PM.DS ---
DS: Providers Provider Date of Service: 04/05/25 Date of admission: 04/03/25 01:19 Date of discharge: 04/05/25 Primary care physician: Keeley Samuels MD DS: Diagnosis Discharge Diagnosis (1) UTI (urinary tract infection): Status: Acute (2) Acute kidney injury superimposed on chronic kidney disease: Status: Acute (3) Diabetes type 2, no ocular involvement: Status: Acute DS: Summary Hospital Course Hospital Course: From the history and physical by the admitting hospitalist, ANGEL Diaz, 04/03/25: Patient is a 74-year-old female with a past medical history significant for CKD 3B, type 2 diabetes on insulin, HFpEF, history CVA with subsequent left-sided weakness on Eliquis, HLD, HTN, class 1 obesity and moderate persistent asthma, who presented to the ED per recommendation of her recep due to a drug-resistant UTI. The patient reports that she has been symptomatic for 1 month and has been treated with nitrofurantoin and ciprofloxacin outpatient without improvement. She is now experiencing weakness, fatigue and decreased appetite. She denies any nausea, vomiting, abdominal pain, frequency of urination, urgency with urination or dysuria. Her urine culture was reviewed and is susceptible to ceftriaxone, the patient will be admitted for IV antibiotics. She was also found to have and DANISH therefore we will monitor and treat with IV fluids as well. 74yo F with CKD3, DM2 on insulin, HFpEF, hx CVA with L-sided weakness on apixaban, HLD, HTN, and asthma sent in by recep for treatment of UTI resistant to ciprofloxacin, did not improve with nitrofurantoin either, also sent in for DANISH/CKD3. She was admitted to the medical-surgical unit and treated with ceftriaxone and IV fluids with symptomatic relief and return of creatinine to baseline (2.47->1.68). Urine culture collected 04/03/25 was contaminated but based on urine culture from 03/23/25, she grew E coli resistant to ampicillin, ciprofloxacin, gentamicin and TMP-SMX but sensitive to ceftriaxone which we will continue. Blood cultures negative. She was discharged on cefpodoxime for 5 days, having completed 2 days of ceftriaxone in the hospital. VNA services were arranged. BMP should be repeated in 1 week. Time Attestation Discharge Coordination Time (in mins): 35 Quality: Safe Use of Opioids Does Pt have an Active Cancer Diagnosis on the Problem List?: No Quality: Stroke Does the patient have a stroke diagnosis?: No Physical Exam Vital Signs: Vital Signs: Last Vital Signs Temp 97.0 F 04/05/25 08:11 Pulse 59 04/05/25 08:26 Resp 18 04/05/25 08:26 BP 162/72 H 04/05/25 09:29 Pulse Ox 95 04/05/25 08:11 O2 Del Method Room Air 04/05/25 08:11 BMI result Body Mass Index 36.2 Gen: in no acute distress HEENT: sclera anicteric, moist mucus membranes Neck: supple Lungs: clear to auscultation bilaterally Heart: regular rate and rhythm, no murmurs Abd: soft, non-tender, non-distended Ext: no edema Skin: warm/well-perfused Neuro: alert and oriented x3, no focal findings Psych: appropriate affect DS: Data Data Completed and Pending Completed studies during hospitalization [Text1]: Laboratory Results WBC 6.5 X10*3/uL (4.8-10.8) 04/05/25 06:13 RBC 3.28 X10*6/uL (4.20-5.50) L 04/05/25 06:13 Hgb 9.7 g/dl (12.0-16.0) L 04/05/25 06:13 Hct 29.8 % (37.0-47.0) L 04/05/25 06:13 MCV 90.9 fL (80.0-98.0) 04/05/25 06:13 MCH 29.6 pg (27.0-33.0) 04/05/25 06:13 MCHC 32.6 g/dl (31.0-35.0) 04/05/25 06:13 RDW 14.4 % (11.0-16.0) 04/05/25 06:13 Plt Count 221 X10*3/uL (160-400) 04/05/25 06:13 MPV 11.0 fL (9.4-12.3) 04/05/25 06:13 Immature Gran % (Auto) 1.0 % (0.0-0.4) H 04/02/25 17:58 Neut % (Auto) 38.8 % (45-73) L 04/02/25 17:58 Lymph % (Auto) 35.4 % (20-40) 04/02/25 17:58 [place] % (Auto) 13.6 % (2-11) H 04/02/25 17:58 Eos % (Auto) 11.1 % (0-4) H 04/02/25 17:58 Baso % (Auto) 0.1 % (0-2) 04/02/25 17:58 Lymph # (Auto) 2.4 X10*3/uL (1.2-4.9) 04/02/25 17:58 [place] # (Auto) 0.9 X10*3/uL (0.1-1.2) 04/02/25 17:58 Eos # (Auto) 0.8 X10*3/uL (0.0-0.4) H 04/02/25 17:58 Baso # (Auto) 0.0 X10*3/uL (0.0-0.2) 04/02/25 17:58 Abs Immat Gran (auto) 0.07 X10*3/uL (0.00-0.03) H 04/02/25 17:58 Absolute Neuts (auto) 2.6 x10*3/uL (2.0-8.3) 04/02/25 17:58 Absolute Nucleated RBC 0.000 X10*3/uL (0.0-0.012) 04/05/25 06:13 Nucleated RBC % (auto) 0.0 /100WBC (0.0-0.2) 04/05/25 06:13 Sodium 142 mmol/L (135-145) 04/05/25 06:13 Potassium 4.8 mmol/L (3.3-5.1) 04/05/25 06:13 Chloride 115 mmol/L (96-108) H 04/05/25 06:13 Carbon Dioxide 18 mmol/L (22-29) L 04/05/25 06:13 Anion Gap 14 (12-20) 04/05/25 06:13 BUN 26 mg/dL (9-16) H 04/05/25 06:13 Creatinine 1.68 mg/dL (0.5-1.4) H 04/05/25 06:13 Estim Creat Clear Calc 27.9 04/05/25 06:13 Estimated GFR 30 04/05/25 06:13 POC Glucose 141 mg/dL (60-115) H 04/05/25 07:37 Random Glucose 137 mg/dL (60-115) H 04/05/25 06:13 Lactic Acid 1.1 mmol/L (0.5-2.0) 04/02/25 17:58 Calcium 9.9 mg/dL (8.4-10.2) 04/05/25 06:13 Magnesium 2.3 mg/dL (1.6-2.6) 04/02/25 17:58 Total Bilirubin 0.2 mg/dL (0.0-1.0) 04/02/25 17:58 AST 17 U/L (5-31) 04/02/25 17:58 ALT 14 U/L (0-31) 04/02/25 17:58 Alkaline Phosphatase 188 U/L (39-117) H 04/02/25 17:58 Total Protein 6.7 g/dL (6.5-8.0) 04/02/25 17:58 Albumin 4.4 g/dL (3.5-5.0) 04/02/25 17:58 Urine Color Yellow 04/03/25 03:51 Urine Appearance Cloudy 04/03/25 03:51 Urine pH 6.0 (5.0-9.0) 04/03/25 03:51 Ur Specific [place] 1.015 (1.005-1.025) 04/03/25 03:51 Urine Protein 300 (3+) mg/dL (Neg-Trace) H 04/03/25 03:51 Urine Glucose (UA) >=1000 mg/dL (Negative) H 04/03/25 03:51 Urine Ketones Negative mg/dL (Negative) 04/03/25 03:51 Urine Blood Moderate (2+) (Negative) H 04/03/25 03:51 Urine Nitrite Positive (Negative) H 04/03/25 03:51 Ur Leukocyte Esterase Large (3+) (Negative) H 04/03/25 03:51 Urine RBC 6-10 /HPF (0-2) H 04/03/25 03:51 Urine WBC >50 /HPF (0-5) H 04/03/25 03:51 Ur Squamous Epith Cells 0-2 /HPF (0-2) 04/03/25 03:51 Urine Bacteria 1+ (None Seen) 04/03/25 03:51 Hyaline Casts 0-2 /LPF (0-2) 04/03/25 03:51 Ur Random Sodium 77.0 mmol/L 04/03/25 11:12 Urine Creatinine 23.56 mg/dL 04/03/25 11:12 Discharge Plan Discharge Anticipated Discharge Date/Time: 04/05/25 10:34 Patient Disposition: Home Health Service Discharge Diagnosis: urinary tract infection acute/chronic kidney disease Referrals: [facility] [Outside] - 3-5 Days (resume services) Cristhian Dolan MD [Physician] - 2 Weeks Keeley Samuels MD [Primary Care Provider] - 1 Week Discharge Medications: New cefpodoxime 200 mg tablet 400 mg PO DAILY Qty: 10 0RF Rx Instructions: must administer with a meal/food Continued (DME) lancets [FreeStyle Lancets] 28 gauge misc See Rx Instructions .Route Qty: 300 0RF Rx Instructions: Test 3 times per day (DME) blood-glucose meter [FreeStyle Lite Meter] Kit See Rx Instructions .Route Qty: 1 0RF Rx Instructions: As directed to test blood sugar 3 times per day (DME) FreeStyle Lite Strips Strip See Rx Instructions .Route Qty: 100 5RF Rx Instructions: three times per day fluticasone furoate-vilanterol [Breo Ellipta] 100-25 mcg/dose blister with device 1 inh inhalation DAILY Qty: 60 6RF carvedilol 25 mg tablet 25 mg PO BID Qty: 60 3RF (DME) lancets [FreeStyle Lancets] 28 gauge misc Qty: 200 2RF Rx Instructions: Check blood sugar three times a day as directed. (DME) FreeStyle Lite Strips Strip Qty: 200 2RF Rx Instructions: Test three times a day or as directed. dapagliflozin propanediol [Farxiga] 5 mg tablet 5 mg PO DAILY Qty: 90 0RF insulin lispro [Humalog KwikPen Insulin] 100 unit/mL insulin pen See Protocol SUBCUT TIDWM Protocol: Insulin Correction Scale Less than or equal to 110 ---- Give (units): 0 111 to 150 Give (units): 0 151 to 200 Give (units): 4 201 to 250 Give (units): 6 251 to 300 Give (units): 8 301 to 350 Give (units): 10 Greater than 350 Give (units): 12 Call MD if Blood Glucose > : 400 Rx Instructions: Blood Sugar: <150 - 0 units 151-200 - 4 units 201-250 - 6 units 251-300 - 8 units 301-350 - 10 units 351-400 -12 units over 400 -[address] Carmona 5 mg Tablet 5 mg PO BID Qty: 60 0RF atorvastatin 40 mg tablet 40 mg PO BEDTIME isosorbide mononitrate 30 mg tablet extended release 24 hr 30 mg PO DAILY acetaminophen 500 mg Tablet 1,000 mg PO DAILY PRN (Reason: Pain) (DME) blood-glucose meter [FreeStyle Lite Meter] Kit Qty: 1 0RF Rx Instructions: As Directed (DME) pen needle, diabetic 32 gauge x 1/4 needle Qty: 100 0RF Rx Instructions: Use four times a day or as directed. insulin glargine [Lantus U-100 Insulin] 100 unit/mL solution 18 unit subcut QPM furosemide 20 mg tablet 20 mg PO Q OTHER DAY amlodipine 2.5 mg tablet 7.5 mg PO DAILY Discharge Orders: Discharge Order (Routine); Ordered 04/05/25 Ordered By: Shlomo Fragoso Diet: Diabetic diet Activity on Discharge: As tolerated Stand Alone Forms: Patient Portal Discharge page Print Language: Amharic Other Ambulatory Orders: Basic Metabolic Panel (Routine) Timeframe: 1 Week Facility: [facility] - Location: Laboratory Ordered By: Shlomo Fragoso Care Plan Goals: recovery from infection Health Concerns: urinary tract infection acute/chronic kidney disease Plan of Treatment: home with VNA services/home PT cefpodoxime 400 mg once daily for 5 days follow up with recep Dr Dolan in 2 weeks Please follow up with your primary care doctor within 1 week. Return to the hospital if you experience recurrent or worsening symptoms. Assessment: See Discharge Summary.
--- NOTE | 2025-04-05 11:22 | MHC.CM.PN ---
Per MD rounds patient medically cleared for dc home w/ resumption of family support and PT/OT services via [facility] - with SN added. Per daughter, granddaughter also assists and patient is with family 20/05. Daughter requesting BLS transport home. Scheduled for 1pm. RN aware.
[2025-04-05 11:47] LABS: Glucose, Whole Blood 213 mg/dL (60-115)
[2025-04-05] MEDS: Insulin Lispro 100 UNIT/ML 3 ML VIAL SUBCUT (11:58)
--- NOTE | 2025-04-05 14:56 | P.CDIM_ITS ---
PROVIDER RESPONSE TEXT: To clarify, the appropriate diagnosis supported by the clinical indicators: Acute QUERY TEXT: PHYSICIAN'S DOCUMENTATION REQUEST Date of Query: 04/05/2025 08:06 AM EDT Patient Name: Enma Gaston Admit Date: 04/03/2025 Dear Shlomo Fragoso MD, A review of the medical record indicates additional documentation may be needed. Please review below and update the documentation accordingly. Clinical Indicators: H&P 04/03/25 - Metabolic acidosis Secondary to poor po intake. IV fluids Clarify which of the following accurately represents the acuity of the Metabolic acidosis: Possible options might include: Acute Chronic Other specified Other (explain) Clinically unable to determine (explain) Thank you, Caroline Ren, CCS, CDIS Use of terms such as suspected, likely, concern for, or probable (associated with a specific diagnosi s that is being evaluated, monitored, or treated as if it exists) are acceptable and can be coded in the inpatient se tting, when documented at the time of discharge. Please use your independent medical judgment in providing your response. THIS QUERY IS PART OF THE PERMANENT MEDICAL RECORD
== END 2025-04-05 13:50 | disposition home health service (06) | DRG 690 ==
LOC: HO.ED 23:50 → HO.EDOVER 04-03 01:52 → HO.S3 04-03 14:03
PROVIDERS: Physician Assistant Medical; Admitting Provider Physician Assistant; Emergency Provider Internal Medicine; PCP Internal Medicine; Visit Provider Family Medicine
DX: N39.0 Urinary tract infection, site not specified (principal); E87.21 Acute metabolic acidosis; I69.354 Hemiplegia and hemiparesis following cerebral infarction affecting left non-dominant side; I13.0 Hypertensive heart and chronic kidney disease with heart failure and stage 1 through stage 4 chronic kidney disease, or unspecified chronic kidney disease; N17.9 Acute kidney failure, unspecified; I50.32 Chronic diastolic (congestive) heart failure; Z16.24 Resistance to multiple antibiotics; J45.40 Moderate persistent asthma, uncomplicated; B96.20 Unspecified Escherichia coli [E. coli] as the cause of diseases classified elsewhere; N18.32 Chronic kidney disease, stage 3b; E11.22 Type 2 diabetes mellitus with diabetic chronic kidney disease; E78.5 Hyperlipidemia, unspecified; E87.8 Other disorders of electrolyte and fluid balance, not elsewhere classified; Z79.4 Long term (current) use of insulin; Z79.899 Other long term (current) drug therapy
CPT/HCPCS: 36415; 80048; 80053; 80061; 81001; 81003; 82570; 82947; 83605; 83735; 84300; 85025; 85027; 87040; 87086; 94640; 97162; 99212; 99285; J0696; J7120

== ENCOUNTER → 2025-04-03 01:19 | Outpatient (BNV) | payer MEDICARE, MEDICAID, SELFPAY | PROVIDERS: Admitting Provider Physician Assistant; Emergency Provider Internal Medicine; PCP Internal Medicine; Visit Provider Family Medicine | DX: E11.22 Type 2 diabetes mellitus with diabetic chronic kidney disease (principal); N18.30 Chronic kidney disease, stage 3 unspecified; N30.00 Acute cystitis without hematuria; N17.9 Acute kidney failure, unspecified | CPT/HCPCS: 99222; 99232; 99239; G0180 ==

== ENCOUNTER 2025-04-12 08:31 | Outpatient (AMB) | payer MEDICARE, SELFPAY ==
--- NOTE | 2025-04-12 09:03 | A.OFFVIS_ITS ---
Intake Visit Reasons: 6m Intake Note: Patient presents to office today for 6m follow up Urology Medication: Tamsulosin Antibiotic Allergies: Penicillins Blood Thinners: Eliquis PVR:10ml Broadcast Engineer Required: No Gear Finisher: Gear Finisher Present Accompanied by: Daughter Allergies Penicillins [PENICILLINS] Allergy (Unknown, Verified 04/12/25 09:04) Rash lactose Adverse Reaction (Mild, Verified 04/12/25 09:04) Unknown shellfish Allergy (Mild, Uncoded 03/15/25 13:09) Unknown Medication List - Last Reconciled 04/12/25 by Errol Grissom MD acetaminophen 1,000 mg PO DAILY PRN amlodipine 7.5 mg PO DAILY apixaban (Eliquis) 5 mg PO BID atorvastatin 80 mg PO BEDTIME blood sugar diagnostic (FreeStyle Lite Strips) three times per day blood sugar diagnostic (FreeStyle Lite Strips) Test three times a day or as directed. blood-glucose meter (FreeStyle Lite Meter kit) As Directed blood-glucose meter (FreeStyle Lite Meter kit) As directed to test blood sugar 3 times per day Breo Ellipta 100-25 mcg/dose (fluticasone furoate-vilanterol) 1 inh inhalation DAILY NS carvedilol 25 mg PO BID cefpodoxime 400 mg (2 x 200 mg) PO DAILY dapagliflozin propanediol (Farxiga) 5 mg PO DAILY furosemide 20 mg PO Q OTHER DAY insulin glargine (Lantus U-100 Insulin) 18 units subcut QPM insulin lispro (Humalog KwikPen (U-100) Insulin) See Protocol sliding scale doses subcut TIDWM isosorbide mononitrate ER 30 mg PO DAILY lancets (FreeStyle Lancets) Test 3 times per day lancets (FreeStyle Lancets) Check blood sugar three times a day as directed. pen needle, diabetic Use four times a day or as directed. HPI Comments Details: 04/12/25-- History of Present Illness - The patient is a 74-year-old female presenting with recurrent urinary tract infections and incomplete bladder emptying. - She has a history of recurrent UTIs, with a recent hospitalization due to a complicated and resistant infection requiring IV antibiotics. - The patient was discharged with a five-day course of oral antibiotics. - Urinalysis today shows 3+ protein, trace blood, and leukocytes negative. - History of incomplete bladder emptying, previously managed with tamsulosin, which was discontinued as the patient is now emptying adequately. - The patient is incontinent, more so at night, and wears briefs for management. Urinary Symptoms Review - Incomplete bladder emptying previously managed with tamsulosin, now discontinued. - Recurrent UTIs, with recent hospitalization for a resistant infection. - Urinary incontinence, more pronounced at night, managed with briefs. Results - Urinalysis: 3+ protein, trace blood, leukocytes negative Discussion Notes I discussed with the patient and her daughter the importance of follow-up care after hospitalization for a complicated UTI. We reviewed the urinalysis results and the discontinuation of tamsulosin due to adequate bladder emptying. I emphasized the need for regular changing of briefs to prevent further infections and advised on the importance of leaving a urine sample at the lab if symptoms of a UTI recur. We also discussed the necessity of attending the upcoming appointment with the primary care physician to ensure continuity of care and medication management. Plan - Monitor for symptoms of UTI and leave a urine sample at the lab if symptoms recur. - Continue to manage urinary incontinence with regular changing of briefs, especially at night. - Follow up with the primary care physician to ensure continuity of care and review of medication management. Patient Instructions Patient was informed and verbally consented to the use of an ambient scribe for clinic note documentation during this visit. 10/08/2024 Enma Staples is here with her daughter, who states that she is still in a nursing facility. [place] [facility] [place] for U[place] discharged with a Padilla and started on tamsulosin, she was seen in follow-up in the office 06/25/2024. She presents today and states that she needs help to get to the bathroom and will get an urge but by the time someone is available to help her she has wet her depends. Her daughter states that prior to her stroke she did have some urine incontinence but was not a significant problem. Urinalysis no signs of infection. The patient denies dysuria. I will decrease dose of tamsulosin from 0.8 mg to 0.4 mg. I have written in the consult notes to administer timed voiding every 3 hours while patient is awake. Since her visit in May with Urology, she was seen by Dr. Prajapati, cardiology a renal ultrasound was ordered which I reviewed possible small bilateral stones 2 and 3 mm and simple cyst. 07/13/24--renal ultrasound-- Small right kidney with cortical thinning. Small nonobstructing bilateral renal calculi. 06/25/2024 Enma Gaston is a 74 years old woman with past medical history significant for type 2 diabetes mellitus on insulin, recent CVA with left hemiparesis on Eliquis, CKD, hyperlipidemia and essential hypertension, who I in itially evaluated in consultation in [place] 2024 [place] [facility] [place] She had urinary retention she was treated for a UTI. She was discharged with padilla amd was started tamsulosin. She is currently voiding. Bladder scan PVR is minimal. She is unable to give urine sample today. Will continue to monitor PVR, cont tamsulosin. [facility] Medical History Diabetes type 2, no ocular involvement Right knee pain UTI (urinary tract infection) Uncontrolled type 2 diabetes mellitus with hyperglycemia Pain of left calf Acute hyperkalemia Dysuria History of UTI Well woman exam Asthma Risk for falls Establishing care with new doctor, encounter for History of stroke Acute cystitis with hematuria Recurrent UTI Class 1 obesity Leg edema CVA (cerebral vascular accident) (HFpEF) heart failure with preserved ejection fraction Left leg weakness SOB (shortness of breath) Gout of big toe Elevated troponin Bilateral wheezing Increasing shortness of breath 2+ pitting edema Cataract Hypertension Gout Surgical History History of cholecystectomy H/O: hysterectomy Social History Household Members: Children Household Members Other:: Daughter. Housing: Apartment Do you presently have visiting nurse or other home services: Yes (VNA and [employer]PER[employer].) Alcohol intake: never Comment: refusing alarms Patient Tobacco Use Status: Former Tobacco user e-Cigarette/Vaping Use: Never Used Second Hand Smoke Exposure: No Advance Directives Date on File: 04/08/24 service: No Current occupational status: retired Cognitive needs: No Hearing needs: No Vision needs: No Female Reproductive History Menstrual Age of Menarche: 20 Review of Systems Const All systems reviewed & are unremarkable except as noted in HPI and below Reports no additional complaints Eyes Reports no additional complaints ENT Reports no additional complaints Card Reports no additional complaints Resp Reports no additional complaints GI Reports no additional complaints Reports as per HPI Musc Reports no additional complaints Skin/Breast Reports system reviewed and no additional complaints, except as documented Neuro Reports no additional complaints Psych Reports no additional complaints Endo Reports no additional complaints [place]/Lymph Reports no additional complaints Aller/Immun Reports no additional complaints Office Procedures Post Void Residual Post Residual Void Post Void Residual (PVR): 10 [id number] Void Residual by ultrasound Results AMB Urinalysis, Automated UA Leukoctes 0 Mike/uL Last Edit by Crystal Norwodo on 04/12/25 13:41 UA Nitrite Negative Last Edit by Crystal Norwood on 04/12/25 13:41 UA Urobilinogen 3.5 mg/dL Last Edit by Crystal Norwood on 04/12/25 13:41 UA Protein 3.0 mg/dL Last Edit by Crystal Norwood on 04/12/25 13:41 UA pH 5.5 Last Edit by Crystal Norwood on 04/12/25 13:41 UA Blood 10 [place]/uL Last Edit by Crystal Norwood on 04/12/25 13:41 UA Specific [place] 1.015 Last Edit by Crystal Norwood on 04/12/25 13:41 UA Ketone Negative Last Edit by Crystal Norwood on 04/12/25 13:41 UA Bilirubin 0 mg/dL Last Edit by Crystal Norwood on 04/12/25 13:41 UA Glucose 60 mg/dL Last Edit by Crystal Norwood on 04/12/25 13:41 Results Reviewed Results Reviewed: Collected: 03/23/25 Status: COMP Req#: [id number] Received: 03/23/25 Source: [facility] Sp Desc: Clean Cat Subm Dr: Nancy Wong MD Ordered: Urine Culture Procedure Result Verified Urine Culture Final 03/26/25 Organism 1 Escherichia coli Quant > 100,000 cfu/mL E coli M.I.C. RX --------- --- Ampicillin >=32 R Cefazolin (Urine) 8 S Cefepime <=0.12 S Ceftriaxone <=0.25 S Ciprofloxacin >=4 R Gentamicin >=16 R Nitrofurantoin <=16 S Trimethoprim/Sulfamethoxazole >=320 R Date of Service: 07/13/24 US RETROPERITONEAL COMPLETE (RENAL) CLINICAL INFORMATION: Hypertension. COMPARISON: None available. TECHNIQUE: Ultrasound of the kidneys was performed along with color flow Doppler imaging and velocity measurements in the proximal mid and distal renal arteries. Aortic velocities were measured and renal/aortic ratios were calculated. Segmental renal indices were calculated. FINDINGS: RIGHT KIDNEY: 8.1 x 3.5 x 4.4 cm (SAG x AP x TRV). The right kidney is small with some cortical calcification and cortical thinning. Mid renal echogenic focus measuring 3 mm could represent a nonobstructing stone. No concerning solid focal parenchymal lesions. No hydronephrosis. LEFT KIDNEY: 10.3 x 5.4 x 4.2 cm (SAG x AP x TRV). The kidney is normal in size, contour, and echogenicity. Renal cortical thickness is normal. There is an upper pole 4 mm echogenic focus consistent with a nonobstructing stone. There is no hydronephrosis. A benign mid renal 0.6 cm Bosniak class I renal cyst is noted which requires no additional imaging or followup. No solid renal masses are seen. ADDITIONAL FINDINGS: In the region of the splenic henry, there is an ovoid vascular mass present measuring 4.8 x 6.5 x 3.7 cm which was also seen previously. DOPPLER EXAM: Velocity measurements in the proximal mid and distal renal arteries are normal. Velocity in the aorta is normal and, therefore, the renal aortic ratios are normal. Segmental resistive indices are all within normal limits aside from some minimal elevation on the left with a maximum of 0.84 (upper limits of normal is 0.80). IMPRESSION: 1. Small right kidney with cortical thinning. 2. Small nonobstructing bilateral renal calculi. 3. No convincing evidence to suggest renovascular hypertension. 4. Mass in splenic henry may be accessory splenic tissue or a splenule. Further workup would require cross-sectional imaging such as CT or MRI. I think MRI, even without contrast would be the exam of choice. Assessment & Plan Assessment & Plan Orders: Orders AMB Urinalysis Automated Today Z13.9 - Encounter for screening, unspecified Coding CPT Codes Post Residual Void - PVR CPT Code: 90224-[id number] Void Residual by ultrasound ([id number])
== END 2025-04-12 09:36 | disposition home or self-care (01) ==
LOC: HO.HUSH 08:33
PROVIDERS: Visit Provider Urology
DX: Z13.9 Encounter for screening, unspecified (principal)

== ENCOUNTER → 2025-04-12 08:31 | Outpatient (BNVA) | payer MEDICARE, SELFPAY | PROVIDERS: Visit Provider Urology | DX: R39.15 Urgency of urination (principal); N20.0 Calculus of kidney; Z87.440 Personal history of urinary (tract) infections | CPT/HCPCS: 51798; 81003; 99212 ==

== ENCOUNTER 2025-04-14 12:55 | Outpatient (AMB) | payer MEDICARE, MEDICAID, SELFPAY ==
[2025-04-14 13:00] VITALS: BP 124/76; PULSE 67; RESP 20; TEMP 36.8; O2SAT 96; BMI 32.5
--- NOTE | 2025-04-14 13:00 | MHC.PC.OV ---
Vital Signs 04/14/25 13:00 Height 4 ft 11 in Weight 161 lb BMI 32.5 BP 124/76 Blood Pressure Location Rt brachial Position Sitting Respiration 20 Pulse 67 Pulse Source Pulse Oximeter Temp 98.2 F Temp Source Oral Pulse Oximetry (%) 96 Oxygen Delivery Method Room Air Intake Visit Reasons: TCM f/u Allergies Penicillins (PENICILLINS) Allergy (Unknown, Verified 04/14/25 13:04) Rash lactose Adverse Reaction (Mild, Verified 04/14/25 13:04) Unknown shellfish Allergy (Mild, Uncoded 04/14/25 13:04) Unknown Medication List - Last Reconciled 04/14/25 by Keeley Samuels MD acetaminophen 1,000 mg PO DAILY PRN amlodipine 7.5 mg PO DAILY apixaban (Eliquis) 5 mg PO BID atorvastatin 80 mg PO BEDTIME blood sugar diagnostic (FreeStyle Lite Strips) three times per day blood sugar diagnostic (FreeStyle Lite Strips) Test three times a day or as directed. blood-glucose meter (FreeStyle Lite Meter kit) As Directed blood-glucose meter (FreeStyle Lite Meter kit) As directed to test blood sugar 3 times per day Breo Ellipta 100-25 mcg/dose (fluticasone furoate-vilanterol) 1 inh inhalation DAILY NS carvedilol 25 mg PO BID cefpodoxime 400 mg (2 x 200 mg) PO DAILY dapagliflozin propanediol (Farxiga) 5 mg PO DAILY furosemide 20 mg PO Q OTHER DAY insulin glargine (Lantus U-100 Insulin) 18 units subcut QPM insulin lispro (Humalog KwikPen (U-100) Insulin) See Protocol sliding scale doses subcut TIDWM isosorbide mononitrate ER 30 mg PO DAILY lancets (FreeStyle Lancets) Test 3 times per day lancets (FreeStyle Lancets) Check blood sugar three times a day as directed. pen needle, diabetic Use four times a day or as directed. Tobacco use date assessed: 04/14/25 Dental Screening Dental Screen Date: 03/10/25 HPI TCM f/u HPI Details Patient is 74-year-old female came in today for hospital discharge follow-up Date of admission 04/03/2025 date of discharge 04/05/2025 [facility] Discharge diagnosis UTI Acute kidney injury superimposed on chronic kidney injury Diabetes mellitus type 2 Patient also have a significant medical history of chronic kidney disease IIIb, she is on insulin, compensated cardiomyopathy, history of CVA with subsequent left-sided weakness on Eliquis, lipid disorder, hypertension, class 1 obesity, moderate persistent asthma. She presented to emergency room as per recommendation of her motor electrician due to drug-resistant UTI. As she was experiencing weakness and fatigue and decreased appetite She was admitted for IV antibiotics which improved her creatinine from 2.47 to 1.68 Her urine culture grew E coli resistant to ampicillin, Cipro, gentamicin and Bactrim but sensitive to ceftriaxone Her blood cultures remain negative She was discharged on cefpodoxime for 5 days after given 2 days of ceftriaxone in the hospital She need a repeat BNP Patient have chronic anemia her hemoglobin was 9.7 in the hospital with a hematocrit of 29.8 Patient will be seeing Dr. Dolan as her motor electrician She is feeling much better Blood sugar has been dropping off and on We will be cutting her an insulin glargine to 10 units from 18 units Continue with insulin lispro as per insulin sliding scale We will repeat urine analysis today again along with other labs She has seen archeologist few days ago blood pressure management and medication through them I have sent Eliquis script for the patient TCM TCM Information Date of Discharge 04/03/25 Discharged From [facility] Interactive Contact Date (Reference documentation from this date) 04/05/25 HPI Comments History of Present Illness Details Date of admission/discharge: 04/03/2025 till 04/05/2025 Facility: [facility] Discharge 2/current location: Home Diagnosis/procedure: Recurrent UTIs/nephropathy New/DC medications: Cefpodoxime Changed medication/dozing: None Pending labs/tests: Due for BNP Call to patient: Date/time Community Navigation TCM visit TCM discharge loca tion/reason [facility]/UTI/DANISH TCM discharge date 04/05/25 TCM Interactive Co ntact Date 04/06/25 TCM medications re conciled No Patient received d ischarge instructi ons Yes All patient questi ons answered Yes Teach back Yes TCM details pt doing ok, meds reconciled, discha rge documents note d, message left fo r tcm apt .no feve rs or bleeding. Outcome How are you feeling? Better Any pain or discomfort? None Do you have any questions about your condition or discharge instructions? None Were you able to get her medications filled? Yes Do you have any questions about your medications? No Were you able to schedule your follow-up appointments? Yes If home health was ordered, have they contacted you? Yes have [facility] come over 2 times a week Any outpatient services, if so, are you scheduled? None ordered Are there any additional resources like transportation you might need during your recovery? No Educational needs/resources: Provided What support system do you have? Living with daughter PFSH Medical History Recurrent UTI Diabetes type 2, no ocular involvement Right knee pain UTI (urinary tract infection) Uncontrolled type 2 diabetes mellitus with hyperglycemia Pain of left calf Acute hyperkalemia Dysuria History of UTI Well woman exam Asthma Risk for falls Establishing care with new doctor, encounter for History of stroke Acute cystitis with hematuria Class 1 obesity Leg edema CVA (cerebral vascular accident) (HFpEF) heart failure with preserved ejection fraction Left leg weakness SOB (shortness of breath) Gout of big toe Elevated troponin Bilateral wheezing Increasing shortness of breath 2+ pitting edema Cataract Hypertension Gout Surgical History History of cholecystectomy H/O: hysterectomy Social History Household Members: Children Household Members Other:: Daughter. 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.) Alcohol intake: never Comment: refusing alarms Patient Tobacco Use Status: Former Tobacco user e-Cigarette/Vaping Use: Never Used Second Hand Smoke Exposure: No Advance Directives Date on File: 04/08/24 service: No Current occupational status: retired Cognitive needs: No Hearing needs: No Vision needs: No Female Reproductive History Menstrual Age of Menarche: 20 Questionnaire Thrive Questionnaire Date Thrive assessed: 02/19/25 I am a: Parent/Caregiver What is your living situation today?: I have a steady place to live Within the past 12 months, did the food you bought not last and you didn't have the money to get more?: I choose not to answer this question Within the past 12 months, did you worry whether your food would run out before you got money to buy more?: I choose not to answer this question Do you have trouble paying for medicines?: No Do you have trouble getting transportation to medical appointments?: No Do you have trouble paying your heating and electricity bill?: No Do you have trouble taking care of your child, family member or friend?: No Do you have trouble with day-to-day activities such as bathing, preparing meals, shopping, managing finances, etc.?: Yes Are you currently unemployed and looking for a job?: I choose not to answer this question Are you interested in more education?: I choose not to answer this question Please select the resources that you would like help with: Food Currently or been in a relationship where the following occur: I choose not to answer THRIVE Score: 0 LORA-7 AMB Questionnaire LORA-7 Date LORA - 7 assessed: 02/19/25 Source: Developed by Drs. Fermin Bynum, Evelyn Sanchez, Gabo Alamo and colleagues, with an educational rubina from [email or web address]. Review of Systems Const Denies chills and Denies fever(s) ENT Denies epistaxis and Denies nasal discharge Card Denies chest pain Resp Denies chest congestion, Denies cough and Denies hemoptysis GI Denies diarrhea and Denies nausea Skin/Breast Denies rash Neuro Reports no additional complaints Psych Reports no additional complaints Endo Reports no additional complaints Physical exam (Primary Care) Vital Signs: Last Vital Signs Temp 98.2 F 04/14/25 13:00 Pulse 67 04/14/25 13:00 Resp 20 04/14/25 13:00 BP 124/76 04/14/25 13:00 Pulse Ox 96 04/14/25 13:00 Oxygen Delivery Method Room Air 04/14/25 13:00 BMI result Body Mass Index 32.5 Tobacco/Smoking Status: Tobacco use Status Tobacco use date assessed 04/14/25 04/14/25 13:05 Patient Tobacco Use Status Former Tobacco user 04/14/25 13:01 e-Cigarette/Vaping Use Never Used 04/14/25 13:01 Thrive Assessment: Date of Thrive Assessment Date Thrive assessed 02/19/25 04/14/25 13:01 Currently or been in a relationship where the following occur: I choose not to answer Const General: cooperative, comfortable and no acute distress Orientation/consciousness: patient oriented x3 HENMT Head: Yes normocephalic Eyes General: appearance normal, both eyes and all related structures Neck Neck: Yes supple Resp Effort & Inspection: normal respiratory effort, no cough and no stridor Cardio Heart sounds: S1 normal heart sound present and S2 normal heart sound present Skin General skin exam: turgor normal Neuro General: patient oriented x3, tone normal and moves all extremities Extrem Right lower extremity: no edema Left lower extremity: no edema Coding Level of Care Code TCM Mod MDM <= 14 Days Diagnoses Hospital discharge follow-up Z09 Chronic heart failure with preserved ejection fraction I50.32 Heart failure chronicity: chronic Diabetes mellitus with multiple complications E11.8 CKD stage 3b, GFR 30-44 ml/min N18.32 Anemia in other chronic diseases classified elsewhere D63.8 Anemia type: other cause Other causes of anemia: chronic disease, other Hypertension, unspecified type I10 Hypertension type: unspecified Recurrent UTI N39.0 Assessment & Plan Assessment & Plan (1) Hospital discharge follow-up: Code(s): Z09 - Encounter for follow-up examination after completed treatment for conditions other than malignant neoplasm Category: Medical (2) (HFpEF) heart failure with preserved ejection fraction: Code(s): I50.30 - Unspecified diastolic (congestive) heart failure Category: Medical Qualifiers: Heart failure chronicity: chronic Qualified Code(s): I50.32 - Chronic diastolic (congestive) heart failure (3) Diabetes mellitus with multiple complications: Code(s): E11.8 - Type 2 diabetes mellitus with unspecified complications Category: Medical (4) CKD stage 3b, GFR 30-44 ml/min: Code(s): N18.32 - Chronic kidney disease, stage 3b Category: Medical (5) Anemia: Code(s): D64.9 - Anemia, unspecified Category: Medical Qualifiers: Anemia type: other cause Other causes of anemia: chronic disease, other Qualified Code(s): D63.8 - Anemia in other chronic diseases classified elsewhere (6) Hypertension: Code(s): I10 - Essential (primary) hypertension Category: Medical Qualifiers: Hypertension type: unspecified Qualified Code(s): I10 - Essential (primary) hypertension (7) Recurrent UTI: Code(s): N39.0 - Urinary tract infection, site not specified Category: Medical Plan Patient is 74-year-old female came in today for hospital discharge follow-up Date of admission 04/03/2025 date of discharge 04/05/2025 [facility] Discharge diagnosis UTI Acute kidney injury superimposed on chronic kidney injury Diabetes mellitus type 2 Patient also have a significant medical history of chronic kidney disease IIIb, she is on insulin, compensated cardiomyopathy, history of CVA with subsequent left-sided weakness on Eliquis, lipid disorder, hypertension, class 1 obesity, moderate persistent asthma. She presented to emergency room as per recommendation of her motor electrician due to drug-resistant UTI. As she was experiencing weakness and fatigue and decreased appetite She was admitted for IV antibiotics which improved her creatinine from 2.47 to 1.68 Her urine culture grew E coli resistant to ampicillin, Cipro, gentamicin and Bactrim but sensitive to ceftriaxone Her blood cultures remain negative She was discharged on cefpodoxime for 5 days after given 2 days of ceftriaxone in the hospital She need a repeat BNP Patient have chronic anemia her hemoglobin was 9.7 in the hospital with a hematocrit of 29.8 Patient will be seeing Dr. Dolan as her motor electrician She is feeling much better Blood sugar has been dropping off and on We will be cutting her an insulin glargine to 10 units from 18 units Continue with insulin lispro as per insulin sliding scale We will repeat urine analysis today again along with other labs She has seen archeologist few days ago blood pressure management and medication through them I have sent [facility] script for the patient Orders: Orders Comprehensive Met. Panel Today D63.8 - Anemia in other chronic diseases classified elsewhere, E11.8 - Type 2 diabetes mellitus with unspecified complications, I10 - Essential (primary) hypertension, I50.32 - Chronic diastolic (congestive) heart failure, N18.32 - Chronic kidney disease, stage 3b, N39.0 - Urinary tract infection, site not specified, Z09 - Encounter for follow-up examination after completed treatment for conditions other than malignant neoplasm UA CC w/rflx Micro + Cult Today D63.8 - Anemia in other chronic diseases classified elsewhere, E11.8 - Type 2 diabetes mellitus with unspecified complications, I10 - Essential (primary) hypertension, I50.32 - Chronic diastolic (congestive) heart failure, N18.32 - Chronic kidney disease, stage 3b, N39.0 - Urinary tract infection, site not specified, Z09 - Encounter for follow-up examination after completed treatment for conditions other than malignant neoplasm B Type Natriuretic Peptide Today D63.8 - Anemia in other chronic diseases classified elsewhere, E11.8 - Type 2 diabetes mellitus with unspecified complications, I10 - Essential (primary) hypertension, I50.32 - Chronic diastolic (congestive) heart failure, N18.32 - Chronic kidney disease, stage 3b, N39.0 - Urinary tract infection, site not specified, Z09 - Encounter for follow-up examination after completed treatment for conditions other than malignant neoplasm Complete Blood Count Auto Diff Today D63.8 - Anemia in other chronic diseases classified elsewhere, E11.8 - Type 2 diabetes mellitus with unspecified complications, I10 - Essential (primary) hypertension, I50.32 - Chronic diastolic (congestive) heart failure, N18.32 - Chronic kidney disease, stage 3b, N39.0 - Urinary tract infection, site not specified, Z09 - Encounter for follow-up examination after completed treatment for conditions other than malignant neoplasm Medications: Refilled apixaban (Eliquis) 5 mg PO BID 60 tabs 0RF
== END 2025-04-14 13:34 | disposition home or self-care (01) ==
LOC: HO.HMCC 12:56
PROVIDERS: PCP Internal Medicine; Visit Provider Internal Medicine
DX: I13.10 Hypertensive heart and chronic kidney disease without heart failure, with stage 1 through stage 4 chronic kidney disease, or unspecified chronic kidney disease (principal); I50.32 Chronic diastolic (congestive) heart failure; N18.32 Chronic kidney disease, stage 3b; E11.8 Type 2 diabetes mellitus with unspecified complications; Z09 Encounter for follow-up examination after completed treatment for conditions other than malignant neoplasm; D63.8 Anemia in other chronic diseases classified elsewhere; N39.0 Urinary tract infection, site not specified

== ENCOUNTER 2025-04-14 13:20 | Outpatient (REF) | payer MEDICARE, SELFPAY ==
[2025-04-14 15:20] LABS: Appearance Urine Clear; Color Urine Yellow; Glucose Urine UA >=1000 mg/dL (Negative); Leukocyte Esterase Urine Negative (Negative); Nitrite Urine Negative (Negative); PH 5.5 (5.0-9.0); Specific Gravity - Urine 1.015 (1.005-1.025); UMIC TRIGGER UACC YES; Urine Blood Negative (Negative); Urine Ketones Negative (Negative); Urine Protein 300 (3+) mg/dL (Neg-Trace)
[2025-04-14 15:22] LABS: Bacteria Urine None Seen (None Seen); RBC Urine 0-2 /HPF (0-2); WBC Urine 0-5 /HPF (0-5)
[2025-04-14 16:15] LABS: MANUAL DIFF FLAG NO
[2025-04-14 16:21] LABS: Basophils Percent Auto 0.1 % (0-2); Eosinophils Absolute Auto 0.8 X10*3/uL (0.0-0.4); Eosinophils Percent Auto 10.5 % (0-4); Hematocrit 28.9 % (37.0-47.0); Hemoglobin 9.1 g/dl (12.0-16.0); Imm Gran Abs Auto 0.13 X10*3/uL (0.00-0.03); Imm Gran Pct Auto 1.7 % (0.0-0.4); Lymphocytes Absolute Auto 2.9 X10*3/uL (1.2-4.9); Lymphocytes Percent Auto 37.3 % (20-40); Mean Corpuscular HGB Conc 31.5 g/dl (31.0-35.0); Mean Corpuscular Hemoglobin 29.6 pg (27.0-33.0); Mean Corpuscular Volume 94.1 fL (80.0-98.0); Mean Platelet Volume 11.5 fL (9.4-12.3); Monocytes Absolute Auto 0.8 X10*3/uL (0.1-1.2); Monocytes Percent Auto 10.8 % (2-11); Neutrophils Absolute Auto 3.1 x10*3/uL (2.0-8.3); Neutrophils Percent Auto 39.6 % (45-73); Platelet Count 205 X10*3/uL (160-400); Red Blood Count 3.07 X10*6/uL (4.20-5.50); Red Cell Distribution Width 14.5 % (11.0-16.0); White Blood Count 7.8 X10*3/uL (4.8-10.8)
[2025-04-14 16:40] LABS: B Type Natriuretic Peptide 421 pg/mL (<100)
[2025-04-14 16:42] LABS: Alanine Aminotransferase 15 U/L (0-31); Alkaline Phosphatase 174 U/L (39-117); Anion Gap 13 (12-20); Aspartate Amino Transferase 16 U/L (5-31); Bilirubin Total 0.2 mg/dL (0.0-1.0); Blood Urea Nitrogen 49 mg/dL (9-16); Calcium 9.1 mg/dL (8.4-10.2); Carbon Dioxide 20 mmol/L (22-29); Chloride 112 mmol/L (96-108); Estimated Glomerular Filt Rate 20; Glucose Random 141 mg/dL (60-115); Potassium 5.3 mmol/L (3.3-5.1); Sodium 140 mmol/L (135-145); Total Protein 6.2 g/dL (6.5-8.0)
== END 2025-04-14 13:21 | disposition home or self-care (01) ==
LOC: HO.HMGCLDS 13:20
PROVIDERS: PCP Internal Medicine; Visit Provider Internal Medicine
DX: I50.32 Chronic diastolic (congestive) heart failure (principal); E11.8 Type 2 diabetes mellitus with unspecified complications; N18.32 Chronic kidney disease, stage 3b; D63.8 Anemia in other chronic diseases classified elsewhere; N39.0 Urinary tract infection, site not specified; Z09 Encounter for follow-up examination after completed treatment for conditions other than malignant neoplasm; I10 Essential (primary) hypertension
CPT/HCPCS: 36415; 80053; 81001; 83880; 85025

== ENCOUNTER → 2025-04-14 14:31 | Outpatient (REF) | payer MEDICARE, SELFPAY ==
--- NOTE | 2025-04-14 14:34 | HM_ITS ---
Conclusion: 1. Patient was monitored for total period of 7 days 2. Baseline was normal sinus rhythm with average heart of 65 beats per minute 3. Rare PACs noted 4. No significant pauses noted 5. No patient reported events MTDD
== END ==
LOC: HO.CARD 14:31
PROVIDERS: PCP Internal Medicine; Visit Provider Nurse Practitioner Family
DX: I63.40 Cerebral infarction due to embolism of unspecified cerebral artery (principal)
CPT/HCPCS: 93242; 99495

== ENCOUNTER → 2025-04-14 14:34 | Outpatient (BNV) | payer MEDICARE, SELFPAY | PROVIDERS: PCP Internal Medicine; Visit Provider Internal Medicine Cardiovascular Disease | DX: I49.1 Atrial premature depolarization (principal) | CPT/HCPCS: 93244 ==

== ENCOUNTER 2025-04-21 08:43 | Outpatient (AMB) | payer MEDICARE, MEDICAID, SELFPAY ==
--- NOTE | 2025-04-21 08:55 | MHC.OFFVIS ---
Vital Signs 04/21/25 09:09 Height 4 ft 11 in Weight 155 lb BMI 31.3 BP 89/52 L Blood Pressure Location Lt brachial Position Sitting Pulse 71 Pulse Oximetry (%) 96 Oxygen Delivery Method Room Air Intake Visit Reasons: Colonoscopy Screening Intake Note: Patient new consult for 3rd pre Colonoscopy screening. first 2 Roby was in [place] everything normal. Patient cc: hx of bloody hemorrhoids on and off, and heartburn more at night time. Denies any other GI issues. Costume Cutter Required: No Accompanied by: Daughter Allergies Penicillins (PENICILLINS) Allergy (Unknown, Verified 04/21/25 08:55) Rash lactose Adverse Reaction (Mild, Verified 04/21/25 08:55) Unknown shellfish Allergy (Mild, Uncoded 04/14/25 13:04) Unknown HPI HPI Colonoscopy Screening: Details: 74-year-old female here for preprocedural meeting to discuss a screening colonoscopy. She is referred by Keeley Samuels. PMX Obesity Asthma Hypertension High cholesterol Diabetes Chronic kidney disease stage 3 Osteopenia Nephrolithiasis History of CVA Urinary retention Frequent falls Edema of the lower extremities Chronic low back pain Gout * SURGICAL HISTORY Cholecystectomy Hysterectomy * [facility] LABS: Laboratory Tests 04/14/25 13:25 WBC 7.8 Hgb 9.1 L Hct 28.9 L MCV 94.1 MCH 29.6 Plt Count 205 BUN 49 H Creatinine 2.36 H Estimated GFR 20 Total Bilirubin 0.2 AST 16 ALT 15 Alkaline Phosphatase 174 H TODAY'S VISIT She is her today with her daughter who supplies most of the history. They deny any GI problems. Given her total health picture, I think it would be more prudent to do a COloguard instead of the risk vs benefit to her of a colonoscopy. She has had 2 prior scopes that were negative. There is no known FHX of crc or polyps. ROV 8 weeks. [facility] Medical History (Updated 04/21/25 @ 11:40 by CHAYO Antoine) Hospital discharge follow-up CKD stage 3b, GFR 30-44 ml/min Recurrent UTI Diabetes type 2, no ocular involvement Right knee pain UTI (urinary tract infection) Uncontrolled type 2 diabetes mellitus with hyperglycemia Pain of left calf Acute hyperkalemia Dysuria History of UTI Well woman exam Asthma Risk for falls Establishing care with new doctor, encounter for History of stroke Acute cystitis with hematuria Class 1 obesity Leg edema CVA (cerebral vascular accident) (HFpEF) heart failure with preserved ejection fraction Left leg weakness SOB (shortness of breath) Gout of big toe Elevated troponin Bilateral wheezing Increasing shortness of breath 2+ pitting edema Cataract Hypertension Gout Surgical History History of cholecystectomy H/O: hysterectomy Social History Household Members: Children Household Members Other:: Daughter. 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.) Alcohol intake: never Comment: refusing alarms Patient Tobacco Use Status: Former Tobacco user e-Cigarette/Vaping Use: Never Used Second Hand Smoke Exposure: No Advance Directives Date on File: 04/08/24 service: No Current occupational status: retired Cognitive needs: No Hearing needs: No Vision needs: No Female Reproductive History Menstrual Age of Menarche: 20 Review of Systems Const Denies fatigue, Denies fever(s), Denies night sweats, Denies poor appetite and Denies weight loss ENT Reports Normal hearing present, Denies dental pain, Denies dysphagia, Denies hearing loss, Denies mouth pain, Denies odynophagia, Denies throat swelling, Denies tongue swelling and Reports other (Dentition adequate) Card Reports dyspnea on exertion Resp Reports dyspnea on exertion GI Details: Denies abdominal pain, Denies melena, Denies bloating, Denies hematochezia, Denies constipation, Denies GI cramping, Denies dysphagia, Denies excessive flatus, Denies early satiety, Denies heartburn, Denies diarrhea, Denies nausea, Denies odynophagia, Denies vomiting and Denies hematemesis Reports urinary incontinence Musc Reports abnormal gait and Reports muscle weakness Skin/Breast Denies pruritus, Denies lesions, Denies rash and Denies jaundice Neuro Reports Normal hearing present and Reports abnormal gait Endo Denies fatigue Aller/Immun Denies throat swelling and Denies tongue swelling Physical Exam Vital Signs: Last Vital Signs Pulse 71 04/21/25 09:09 BP 89/52 L 04/21/25 09:09 Pulse Ox 96 04/21/25 09:09 Oxygen Delivery Method Room Air 04/21/25 09:09 BMI result Body Mass Index 31.3 Const General: cooperative, no acute distress, well developed and well groomed Nutritional Appearance: well nourished and obese Orientation/consciousness: oriented to person, oriented to place and oriented to time Limitations: language barrier and wheelchair HEENT Head: Yes normocephalic and Yes atraumatic Eyes General: appearance normal, both eyes and all related structures Pupils: Equal, round and reactive pupils present Neck Neck: Yes normal visual inspection and Yes no lymphadenopathy Thyroid: Thyroid normal Resp Effort & Inspection: normal respiratory effort and able to speak in complete sentences Auscultation: clear to auscultation bilaterally Cardio Rate: regular rate Rhythm: regular rhythm Heart sounds: Normal, physiologic split S2 sound present Peripheral pulses: radial pulses present and posterior tibial pulses present GI Inspection: No distended, Yes Abdominal panniculus present and Yes obesity Palpation (GI): Soft to palpation, nontender, no guarding, not rigid and No hepatosplenomegaly present Percussion: Yes normal to percussion Auscultation: normal bowel sounds Rectal Exam - Female: deferred Abdomen image:  1. SURGICAL S Skin General skin exam: no rashes or lesions noted, turgor normal, skin not dry, no jaundice, No spider nevi and no striae Rashes: no rashes Nails: normal Neuro General: oriented to person, oriented to place and oriented to time Cranial nerves: Yes Equal, round and reactive pupils present and Yes Normal hearing present Extrem Other: AFO BRACE LEFT ANKLE General: No clubbing, No cyanosis and Yes edema Psych Appearance: grossly normal and well kempt Mental Status: other Speech and movement: Mute speech present Affect: normal affect Attitude: cooperative Thought process: not confabulating and Other thought process findings present Thought content: other Insight: Limited insight present (Psych) Judgement: Limited judgement present (Psych) Assessment & Plan Assessment & Plan (1) Encounter for colorectal cancer screening using Cologuard test: Code(s): Z12.11 - Encounter for screening for malignant neoplasm of colon; Z12.12 - Encounter for screening for malignant neoplasm of rectum Category: Medical (2) (HFpEF) heart failure with preserved ejection fraction: Code(s): I50.30 - Unspecified diastolic (congestive) heart failure Category: Medical Qualifiers: Heart failure chronicity: chronic Qualified Code(s): I50.32 - Chronic diastolic (congestive) heart failure (3) Diabetes mellitus with multiple complications: Code(s): E11.8 - Type 2 diabetes mellitus with unspecified complications Category: Medical (4) Chronic kidney disease (CKD) stage G4/A1, severely decreased glomerular filtration rate (GFR) between 15-29 mL/min/1.73 square meter and albuminuria creatinine ratio less than 30 mg/g: Code(s): N18.4 - Chronic kidney disease, stage 4 (severe) Category: Medical (5) Asthma, moderate persistent: Code(s): J45.40 - Moderate persistent asthma, uncomplicated Category: Medical Qualifiers: Asthma complication type: uncomplicated Qualified Code(s): J45.40 - Moderate persistent asthma, uncomplicated Plan She is her today with her daughter who supplies most of the history. They deny any GI problems. Given her total health picture, I think it would be more prudent to do a COloguard instead of the risk vs benefit to her of a colonoscopy. She has had 2 prior scopes that were negative. She is w/c bound and has mobility issues that would also, s/p CVA and hemiparesis, that would make prep difficult. There is no known FHX of crc or polyps. We watch the ColSezionard instructional video and they are in agreement that this would be a preferred first step in her CRC screening. ROV 8 weeks. Coding Level of Care Code New Pt Level 3 (03656) Diagnoses Encounter for colorectal cancer screening using Cologuard test Z12.11; Z12.12 Chronic heart failure with preserved ejection fraction I50.32 Heart failure chronicity: chronic Diabetes mellitus with multiple complications E11.8 Chronic kidney disease (CKD) stage G4/A1, severely decreased glomerular filtration rate (GFR) between 15-29 mL/min/1.73 square meter and albuminuria creatinine ratio less than 30 mg/g N18.4 Moderate persistent asthma without complication J45.40 Asthma complication type: uncomplicated
[2025-04-21 09:09] VITALS: BP 89/52; PULSE 71; O2SAT 96; BMI 31.3
== END 2025-04-21 09:37 | disposition home or self-care (01) ==
LOC: HO.HGI 08:44
PROVIDERS: PCP Family Medicine Geriatric Medicine; Visit Provider Nurse Practitioner
DX: Z12.11 Encounter for screening for malignant neoplasm of colon (principal); Z12.12 Encounter for screening for malignant neoplasm of rectum; I50.32 Chronic diastolic (congestive) heart failure; E11.8 Type 2 diabetes mellitus with unspecified complications; N18.4 Chronic kidney disease, stage 4 (severe); J45.40 Moderate persistent asthma, uncomplicated
CPT/HCPCS: 99024

== ENCOUNTER → 2025-04-21 08:43 | Outpatient (BNVA) | payer MEDICARE, MEDICAID, SELFPAY | PROVIDERS: PCP Family Medicine Geriatric Medicine; Visit Provider Nurse Practitioner | DX: Z12.11 Encounter for screening for malignant neoplasm of colon (principal); Z12.12 Encounter for screening for malignant neoplasm of rectum; E11.22 Type 2 diabetes mellitus with diabetic chronic kidney disease; N18.4 Chronic kidney disease, stage 4 (severe); E11.8 Type 2 diabetes mellitus with unspecified complications; J45.40 Moderate persistent asthma, uncomplicated; I50.32 Chronic diastolic (congestive) heart failure | CPT/HCPCS: 99212 ==

== ENCOUNTER → 2025-05-12 23:59 | Outpatient (BNV) | payer MEDICARE, MEDICAID, SELFPAY | PROVIDERS: PCP Family Medicine Geriatric Medicine; Visit Provider Internal Medicine | DX: I13.0 Hypertensive heart and chronic kidney disease with heart failure and stage 1 through stage 4 chronic kidney disease, or unspecified chronic kidney disease (principal); I50.32 Chronic diastolic (congestive) heart failure; E11.22 Type 2 diabetes mellitus with diabetic chronic kidney disease; N18.4 Chronic kidney disease, stage 4 (severe); N30.00 Acute cystitis without hematuria | CPT/HCPCS: G0179 ==

== ENCOUNTER 2025-06-03 10:27 | Outpatient (AMB) | payer MEDICARE, MEDICAID, SELFPAY ==
[2025-06-03 10:29] VITALS: BP 122/56; PULSE 65; O2SAT 95
--- NOTE | 2025-06-03 10:29 | HO.NEPHOV ---
Vital Signs 06/03/25 10:29 Height 4 ft 11 in BP 122/56 L Blood Pressure Location Rt brachial Position Sitting Pulse 65 Pulse Source Pulse Oximeter Pulse Oximetry (%) 95 Oxygen Delivery Method Room Air Intake Visit Reasons: FU/ Conf Supervisor Phosphatic Fertilizer Required: No Accompanied by: Daughter Allergies Penicillins (PENICILLINS) Allergy (Unknown, Verified 06/03/25 10:40) Rash lactose Adverse Reaction (Mild, Verified 06/03/25 10:40) Unknown shellfish Allergy (Mild, Uncoded 04/14/25 13:04) Unknown Medication List - Last Reconciled 06/03/25 by Cristhian Dolan MD acetaminophen 1,000 mg PO DAILY PRN amlodipine 7.5 mg (3 x 2.5 mg) PO DAILY apixaban (Eliquis) 5 mg PO BID atorvastatin 80 mg PO BEDTIME blood sugar diagnostic (FreeStyle Lite Strips) three times per day blood sugar diagnostic (FreeStyle Lite Strips) Test three times a day or as directed. blood-glucose meter (FreeStyle Lite Meter kit) As Directed blood-glucose meter (FreeStyle Lite Meter kit) As directed to test blood sugar 3 times per day Breo Ellipta 100-25 mcg/dose (fluticasone furoate-vilanterol) 1 inh inhalation DAILY NS carvedilol 25 mg PO BID cefpodoxime 400 mg (2 x 200 mg) PO DAILY dapagliflozin propanediol (Farxiga) 5 mg PO DAILY furosemide 20 mg PO Q OTHER DAY insulin glargine (Lantus U-100 Insulin) 18 units subcut QPM insulin lispro (Humalog KwikPen (U-100) Insulin) See Protocol sliding scale doses subcut TIDWM isosorbide mononitrate ER 30 mg PO DAILY lancets (FreeStyle Lancets) Test 3 times per day lancets (FreeStyle Lancets) Check blood sugar three times a day as directed. pen needle, diabetic Inject insulin 4 times per day HPI Comments Details: 73-year-old woman with a history of longstanding diabetes mellitus for more than 20 years. She was recently hospitalized and was found to have acute kidney injury. During workup she was found to have about 5 g of proteinuria. At the time of discharge serum creatinine decreased to 2.8 mg/dL. She appeared euvolemic. She was on valsartan and Jardiance which were placed on hold. Today she was accompanied by her daughter. Blood pressure is still suboptimal blood sugar is suboptimal. She has no shortness of breath at rest. She has shortness of breath on exertion. no nausea or vomiting. No urinary symptoms. 10/08/24 Seen by And cardiology Sleep apnea requiring O2 01/11/25 Still at DAyniantic On LAsix 40 mg PRN 04/02/25 74-year-old female presenting with persistent urinary tract infection (UTI) complicated by acute kidney injury (DANISH). After a UTI diagnosis in mid-February, initial treatment with Ciprofloxacin was altered to Nitrofurantoin due to resistance patterns and drug allergies. Despite the new antibiotic regimen, follow-up urine cultures remain positive for infection as of March 23. Complications include acute kidney injury, with lab results indicating elevated potassium levels, requiring consideration in treatment decisions. Symptomatically, the patient has noted intermittent confusion, possibly related to the ongoing UTI. Blood pressure variations, with a notably low reading compared to usual clinical figures, and significant fluctuations in blood glucose levels relate to her diabetic status, compounding the management challenge. 06/03/25: Overall doing well.Did not take lasix for few days No dyspnea [facility] History (Updated 04/21/25 @ 11:40 by CHAYO Antoine) Hospital discharge follow-up CKD stage 3b, GFR 30-44 ml/min Recurrent UTI Diabetes type 2, no ocular involvement Right knee pain UTI (urinary tract infection) Uncontrolled type 2 diabetes mellitus with hyperglycemia Pain of left calf Acute hyperkalemia Dysuria History of UTI Well woman exam Asthma Risk for falls Establishing care with new doctor, encounter for History of stroke Acute cystitis with hematuria Class 1 obesity Leg edema CVA (cerebral vascular accident) (HFpEF) heart failure with preserved ejection fraction Left leg weakness SOB (shortness of breath) Gout of big toe Elevated troponin Bilateral wheezing Increasing shortness of breath 2+ pitting edema Cataract Hypertension Gout Surgical History History of cholecystectomy H/O: hysterectomy Social History Household Members: Children Household Members Other:: Daughter. Housing: Apartment Do you presently have visiting nurse or other home services: Yes (VNA and JUNIOR ARCHITECT.) Alcohol intake: never Comment: refusing alarms Patient Tobacco Use Status: Former Tobacco user e-Cigarette/Vaping Use: Never Used Second Hand Smoke Exposure: No Advance Directives Date on File: 04/08/24 service: No Current occupational status: retired Cognitive needs: No Hearing needs: No Vision needs: No Female Reproductive History Menstrual Age of Menarche: 20 Physical Exam Vital Signs: Last Vital Signs Pulse 65 06/03/25 10:29 BP 122/56 L 06/03/25 10:29 Pulse Ox 95 06/03/25 10:29 Oxygen Delivery Method Room Air 06/03/25 10:29 Last Vital Signs Temp 96.5 F L 02/13/24 11:05 Pulse 72 02/13/24 11:41 Resp 16 02/13/24 11:41 BP 103/58 L 02/13/24 11:05 Pulse Ox 95 02/13/24 11:05 O2 Del Method Room Air 02/13/24 11:05 BMI result Body Mass Index 34.3 Awake. Comfortable. Neck is supple. Mucosa moist. Lungs clear Heart S1-S2 heard no gallop. Abdomen soft. Extremities no edema. No involuntary movements. No myoclonus. Const Nutritional Appearance: well nourished Orientation/consciousness: patient oriented x3 HEENT Head: No normal to inspection Mouth: moist mucous membranes Neck Neck: Yes supple and Yes no JVD Resp Auscultation: crackles Cardio Jugular venous distension: no JVD Palpation: no palpable S3 and no palpable S4 Heart sounds: no rubs GI Palpation (GI): Soft to palpation and nontender Percussion: No Fluid wave present General: Yes no CVA tenderness Back/Spine/Pelvis Back: no CVA tenderness Skin General skin exam: no rashes or lesions noted Neuro General: patient oriented x3 Extrem General: No clubbing Results Reviewed Nephrology Results: Hgb, (12.0-16.0) 9.1 g/dl L 04/14/25 WBC, (4.8-10.8) 7.8 X10*3/uL 04/14/25 Plt Count, (160-400) 205 X10*3/uL 04/14/25 Sodium, (135-145) 140 mmol/L 04/14/25 Potassium, (3.3-5.1) 5.3 mmol/L H 04/14/25 Chloride, (96-108) 112 mmol/L H 04/14/25 Carbon Dioxide, (22-29) 20 mmol/L L 04/14/25 BUN, (9-16) 49 mg/dL H 04/14/25 Creatinine, (0.5-1.4) 2.36 mg/dL H 04/14/25 Calcium, (8.4-10.2) 9.1 mg/dL Δ 04/14/25 Urine Protein, (Neg-Trace) 300 (3+) mg/dL H 04/14/25 Renal US 07/13/24 Assessment & Plan Assessment & Plan (1) Acute kidney injury superimposed on chronic kidney disease: Code(s): N17.9 - Acute kidney failure, unspecified; N18.9 - Chronic kidney disease, unspecified Category: Medical (2) Chronic kidney disease (CKD) stage G4/A1, severely decreased glomerular filtration rate (GFR) between 15-29 mL/min/1.73 square meter and albuminuria creatinine ratio less than 30 mg/g: Code(s): N18.4 - Chronic kidney disease, stage 4 (severe) Category: Medical Plan 73-year-old woman with chronic kidney disease. She has proteinuria most likely due to underlying diabetic nephropathy. 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 Baseline creatinine is around 2.2 mg/dL. She sustained DANISH due to hypoperfusion. Renal function has improved and close to baseline. Creatinine at baseline with eGFR of 28 ml/mt At this point the goal is to slow the progression of kidney disease Continue to avoid nephrotoxic agents. Agree with SGLT-2 inhibitor Change LAsix at 20 mg dialy We discussed importance of tight control of blood sugar and blood pressure to slow the portion disease. BP is well controlled Anemia due to underlying chronic kidney disease. No absolute indication for Epogen yet She will follow closely. Splenic mass- follow with PCP 04/02/25 Superimposed DANISH Hyperkalemia Resistant UTI requiring IV Antibiotics Hospital admission is required to manage the persistent urinary tract infection with intravenous antibiotics due to resistance to oral therapy along with superimposed DANISH And hyperkalemia Blood glucose fluctuations will be managed in the context of her diabetic care, acknowledging the infection's impact on control. Hospitalization for IV antibiotics was recommended 06/03/25 CKD with superimpsed DANISH No s/s of uremia Volume status OK BP well controlled REcheck Labs today Resume LAsix 20 mg QOD Orders: Orders Basic Metabolic Panel Today N18.4 - Chronic kidney disease, stage 4 (severe) Complete Blood Count Auto Diff Today N18.4 - Chronic kidney disease, stage 4 (severe) Coding Level of Care Code Est Pt Level 4 (71403) Diagnoses Acute kidney injury superimposed on chronic kidney disease N17.9; N18.9 Chronic kidney disease (CKD) stage G4/A1, severely decreased glomerular filtration rate (GFR) between 15-29 mL/min/1.73 square meter and albuminuria creatinine ratio less than 30 mg/g N18.4
--- OUTSIDE RECORDS SUMMARY | 2025-06-03 10:59 | XMS_ITS | Clinical Summary ---
Author Organization [facility] Address [address] [place] [id number] Phone Care Team Providers Care Geomorphology Teacher Name Role Phone Pcp, Unknown Primary Care Provider Unavailabl e Social History Tobacco Use Types Packs/Day Years Used Date Smoking Tobacco: Never Assessed Child or Family Care Answer Date Record ed Do you have problems with on e of the following making it difficult for you to work, study, or receive health care? No 04/09/2025 Education Answer Date Recorded Are you interested in more education? Not on liz e 02/09/2025 Are you concerned about learning? Not on file 02/09/2025 No 02/09/2025 No 02/09/2025 Food Answer Date Recorded Within the past 6 months we worried whether our food would run out before we got money to buy more. Sometimes True 025 Within the past 6 months the food we bought just didn't last and we didn't have enough money to get more. Sometimes True 03/28 Residential Stability Answer Date Recor ded What is your housing situation today? I have [employer] hooper 04/09/2025 How many times have you moved in the past 12 sat th? One time 04/09/2025 Paying for Meds Answer Date Recorded Do you have trouble paying for medicines? No 04/09/2025 Paying Utility Bills Answer Date Record ed Do you have trouble paying your heating or elect ricity bill? No 04/09/2025 Transportation Answer Date Recorded Has the lack of transportati on kept you from medical appointments or from getting medications? No 04/09/2025 Digital Access Answer Date Recorded No 04/09/2025 Yes 04/09/2025 Do you have reliable internet access at home? Ye s 04/09/2025 Do you have a device (e.g., phone, tablet, computer) with a working camera? Yes 04/09/2025 Intimate Partner Violence Answer Date R ecorded Denied Basic Needs Not on file 04/09/2025 In the past 12 months have y ou been in a relationship with a person who hurts, threatens, or tries to control you? No 04/09/2025 Worried food would run out Not on file 04/09 In the past 12 months have y ou been in a relationship with a person who hurts, threatens, or tries to control you? No 04/09/2025 Comments Unknown Sex and Gender Information Value Date Recorded Sex Assigned at Not on file Legal Sex Female 9:52 AM EDT Gender Identity Not on file Sexual Orientation Not on file Plan of Treatment Health Maintenance Due Date Last Done Comments Adult Td,Tdap Booster 1952 LIPID PANEL 1952 SMOKING Hx and SMOKELESS TOB ACCO SCREENING 1965 HEPATITIS C SCREENING 1970 MAMMOGRAM 1992 COLOGUARD 1997 COLONOSCOPY 1997 COLORECTAL CANCER SCREENING 1997 FIT TEST 1997 FOBT 1997 SIGMOIDOSCOPY 1997 VIRTUAL COLONOSCOPY 1997 PNEUMOCOCCAL VACCINES (50+ y ears) (1 of 1 - PCV) 2002 ZOSTER VACCINES (1 of 2) 2002 OSTEOPOROSIS SCREENING INITI AL (ONE-TIME) 2017 COVID-19 VACCINE ( - 2023-2 5 season) 2024 DEPRESSION SCREENING 04/09/2026 04/09/2025 RSV VACCINE (1 - 1-dose 75+ series) 2027 HEPATITIS A VACCINES Aged Out No long er eligible based on patient's age to complete this topic HIB VACCINES Aged Out No longer eligi ble based on patient's age to complete this topic MENINGOCOCCAL VACCINES (ACWY) Aged Out No longer eligible based on patient's age to complete this topic MENINGOCOCCAL VACCINES (B) Aged Out N o longer eligible based on patient's age to complete this topic Medical Devices Not on file Insurance [facility] A [facility] MEDICARE PART A & [facility]IC[facility] A & B [facility] MEDICARE PART A & B [facility] [employer] Care Teams Geomorphology Teacher Relationship Specialty Start Date End Date Pcp, Unknown PCP - General 02/09/25 Additional Source Comments The information contained in this document represents components of the legal health record. It is not the complete legal health record.[facility]
== END 2025-06-03 10:51 | disposition home or self-care (01) ==
LOC: HO.HKA 10:28
PROVIDERS: PCP Internal Medicine; Visit Provider Internal Medicine Hypertension Specialist
DX: N17.9 Acute kidney failure, unspecified (principal); N18.9 Chronic kidney disease, unspecified; N18.4 Chronic kidney disease, stage 4 (severe)
CPT/HCPCS: 99214

== ENCOUNTER → 2025-06-03 10:27 | Outpatient (BNVA) | payer MEDICARE, MEDICAID, SELFPAY | PROVIDERS: PCP Internal Medicine; Visit Provider Internal Medicine Hypertension Specialist | DX: N17.9 Acute kidney failure, unspecified (principal); E11.22 Type 2 diabetes mellitus with diabetic chronic kidney disease; N18.4 Chronic kidney disease, stage 4 (severe); Z87.440 Personal history of urinary (tract) infections; Z79.4 Long term (current) use of insulin | CPT/HCPCS: 99212 ==

== ENCOUNTER 2025-06-03 11:00 | Outpatient (REF) | payer MEDICARE, MEDICAID, SELFPAY ==
[2025-06-03 12:57] LABS: MANUAL DIFF FLAG NO
[2025-06-03 12:58] LABS: Hematocrit 30.1 % (37.0-47.0); Hemoglobin 9.4 g/dl (12.0-16.0); Imm Gran Abs Auto 0.14 X10*3/uL (0.00-0.03); Imm Gran Pct Auto 1.7 % (0.0-0.4); Lymphocytes Absolute Auto 2.8 X10*3/uL (1.2-4.9); Mean Corpuscular HGB Conc 31.2 g/dl (31.0-35.0); Mean Corpuscular Hemoglobin 28.6 pg (27.0-33.0); Mean Corpuscular Volume 91.5 fL (80.0-98.0); NRBC Abs Auto 0.000 X10*3/uL (0.0-0.012); NRBC Pct Auto 0.0 /100WBC (0.0-0.2); Platelet Count 164 X10*3/uL (160-400); Red Blood Count 3.29 X10*6/uL (4.20-5.50); White Blood Count 8.0 X10*3/uL (4.8-10.8)
[2025-06-03 13:55] LABS: Anion Gap 12 (12-20); Blood Urea Nitrogen 32 mg/dL (9-16); Calcium 9.3 mg/dL (8.4-10.2); Carbon Dioxide 22 mmol/L (22-29); Chloride 111 mmol/L (96-108); Estimated Glomerular Filt Rate 26; Potassium 5.1 mmol/L (3.3-5.1); Sodium 140 mmol/L (135-145)
== END 2025-06-03 11:01 | disposition home or self-care (01) ==
LOC: HO.10HDL 11:00
PROVIDERS: Visit Provider Internal Medicine Hypertension Specialist
DX: N18.4 Chronic kidney disease, stage 4 (severe) (principal)
CPT/HCPCS: 36415; 80048; 85025

== ENCOUNTER 2025-06-15 12:49 | Outpatient (REF) | payer MEDICARE, MEDICAID, SELFPAY ==
--- NOTE | ~2025-06-15 | XR_ITS ---
EXAMINATION: XR CHEST CLINICAL INFORMATION: R05.9 - Cough, unspecified COMPARISON: 02/06/2024 TECHNIQUE: 2 views of the chest were obtained. FINDINGS: There is borderline cardiac enlargement. Mediastinal and hilar contours appear normal. Lungs are well inspired. There is minimal linear atelectasis or scarring in both bases. Lungs otherwise clear. There is no pneumothorax or pleural effusion. There is no focal osseous or soft tissue abnormality. XR/XR chest 2V IMPRESSION: No active pulmonary disease. Electronically signed by: Rachid Espinoza MD 06/15/2025 02:24 PM EDT
== END 2025-06-15 12:50 | disposition home or self-care (01) ==
LOC: HO.XRAY 12:49
PROVIDERS: PCP Internal Medicine; Visit Provider Nurse Practitioner Family
DX: J45.909 Unspecified asthma, uncomplicated (principal); I11.0 Hypertensive heart disease with heart failure; G47.34 Idiopathic sleep related nonobstructive alveolar hypoventilation; I50.32 Chronic diastolic (congestive) heart failure; R05.9 Cough, unspecified; R06.09 Other forms of dyspnea; Z79.01 Long term (current) use of anticoagulants
CPT/HCPCS: 71046; 99212

== ENCOUNTER 2025-06-15 12:49 | Outpatient (AMB) | payer MEDICARE, MEDICAID, SELFPAY ==
--- NOTE | 2025-06-15 13:00 | A.OFFVIS_ITS ---
Vital Signs 06/15/25 13:01 Height 4 ft 11 in Weight 160 lb 2 oz BMI 32.3 BP 122/64 Blood Pressure Location Rt brachial Position Sitting Pulse 68 Pulse Source Pulse Oximeter Pulse Oximetry (%) 95 Oxygen Delivery Method Room Air Intake Visit Reasons: nocturnal hypoxemia Allergies Penicillins (PENICILLINS) Allergy (Unknown, Verified 06/15/25 13:04) Rash lactose Adverse Reaction (Mild, Verified 06/15/25 13:04) Unknown shellfish Allergy (Mild, Uncoded 06/15/25 13:04) Unknown HPI HPI nocturnal hypoxemia: Details: Enma Staples is a pleasant 75 year old female, former minimal smoker, with underlying asthma, CHF, DMII, HTN, 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 Since the last visit, she has been discharged from [facility] 3 months ago and is living with daughter, previously resided at [facility] x 1 year. Prior home sleep study revealed significant nocturnal hypoxemia <88% for 321 minutes, negative for NOE 06/2024 and continues using 1L supplemental oxygen NOC. 6MWT performed and did not require supplemental oxygen with exertion. Prior PFT revealed moderate obstructive ventilatory defect with positive bronchodilator response and was started on Breo however had stopped using as she could not tolerate the DPI. She reported increased cough and dyspnea immediately after inhalation. She reports respiratory symptoms are controlled however daughter continues to hear wheezing with exertion as well as labored breathing with any exertion. Denies cough or chest tightness. She denies any visits to urgent care or hospitalizations related to respiratory distress since the last visit. [facility] Medical History (Updated 06/15/25 @ 13:27 by Glenys Bunn NP) Hospital discharge follow-up CKD stage 3b, GFR 30-44 ml/min Recurrent UTI Diabetes type 2, no ocular involvement Right knee pain UTI (urinary tract infection) Uncontrolled type 2 diabetes mellitus with hyperglycemia Pain of left calf Acute hyperkalemia Dysuria History of UTI Well woman exam Asthma Risk for falls Establishing care with new doctor, encounter for History of stroke Acute cystitis with hematuria Class 1 obesity Leg edema CVA (cerebral vascular accident) (HFpEF) heart failure with preserved ejection fraction Left leg weakness SOB (shortness of breath) Gout of big toe Elevated troponin Bilateral wheezing Increasing shortness of breath 2+ pitting edema Cataract Hypertension Gout Surgical History History of cholecystectomy H/O: hysterectomy Social History Household Members: Children Household Members Other:: Daughter. Housing: Apartment Do you presently have visiting nurse or other home services: Yes (VNA and ACADEMIC REGISTRAR.) Alcohol intake: never Comment: refusing alarms Patient Tobacco Use Status: Former Tobacco user e-Cigarette/Vaping Use: Never Used Second Hand Smoke Exposure: No Advance Directives Date on File: 04/08/24 service: No Current occupational status: retired Cognitive needs: No Hearing needs: No Vision needs: No Female Reproductive History Menstrual Age of Menarche: 20 Review of Systems Const Denies chills, Denies excessive sweating, Denies fever(s), Denies headache(s) and Denies night sweats Eyes Denies dry eyes, Denies irritation and Denies itchy eyes ENT Reports Normal hearing present, Denies headache(s), Denies nasal congestion, Denies nasal discharge, Denies post nasal drip and Denies sore throat Card Denies chest pain, Denies chest pain at rest, Denies chest pain with activity, Denies claudication, Reports dyspnea on exertion and Denies paroxysmal nocturnal dyspnea Resp Denies change in phlegm color, Denies chest congestion, Denies cough, Denies excessive phlegm production, Denies pain on inspiration, Denies pain with cough, Reports dyspnea on exertion, Denies stridor and Reports wheezing Musc Denies myalgias Neuro Reports Normal hearing present and Denies headache(s) Endo Denies excessive sweating [place]/Lymph Denies lymphadenopathy Aller/Immun Denies itchy eyes, Denies seasonal rhinorrhea and Reports wheezing Physical Exam Vital Signs: Last Vital Signs Pulse 68 06/15/25 13:01 BP 122/64 06/15/25 13:01 Pulse Ox 95 06/15/25 13:01 Oxygen Delivery Method Room Air 06/15/25 13:01 BMI result Body Mass Index 32.3 Const General: cooperative, healthy appearing, comfortable, no acute distress, well developed and alert Nutritional Appearance: obese Orientation/consciousness: patient oriented x3 Limitations: wheelchair HEENT Head: Yes normal to inspection, Yes normocephalic and Yes atraumatic Ears: hearing grossly normal bilaterally and external ears normal Eyes General: appearance normal, both eyes and all related structures Eyelids: Yes eyelids normal Sclerae: sclerae normal EOM: EOMs intact bilaterally Neck Neck: Yes normal visual inspection and Yes no lymphadenopathy Lymphatic: no lymphadenopathy noted Chest Chest palpation & inspection: normal inspection of the chest Resp Other: inspiratory crackles R>L Effort & Inspection: normal respiratory effort, able to speak in complete sentences, no audible wheezes, no cough, no stridor, not tachypneic, no tripod positioning and no use of accessory muscles Cardio Jugular venous distension: no JVD Rate: regular rate Rhythm: regular rhythm Skin Other: warm, dry General skin exam: no rashes or lesions noted Neuro General: patient oriented x3 Cranial nerves: Yes Normal hearing present Cognition (Neuro): normal cognition Extrem Other: 1-2+ pitting edema BLE Psych Appearance: grossly normal and well kempt Speech and movement: Normal speech and movement present and Clear speech present Affect: normal affect Attitude: cooperative Thought process: Normal thought process present Thought content: Normal thought content present Insight: Good insight present (Psych) Judgement: Good judgement present (Psych) Assessment & Plan Assessment & Plan (1) Asthma: Code(s): J45.909 - Unspecified asthma, uncomplicated Category: Medical (2) Nocturnal hypoxemia: Code(s): G47.34 - Idiopathic sleep related nonobstructive alveolar hypoventilation Category: Medical (3) Dyspnea on exertion: Code(s): R06.09 - Other forms of dyspnea Category: Medical (4) (HFpEF) heart failure with preserved ejection fraction: Code(s): I50.30 - Unspecified diastolic (congestive) heart failure Category: Medical Qualifiers: Heart failure chronicity: chronic Qualified Code(s): I50.32 - Chronic d iastolic (congestive) heart failure Plan Most recent sleep study revealed nocturnal hypoxemia, average 95%, lowest 82% and <88% for 8.5 minutes with recommendations for 1L supplemental oxygen NOC, advised to continue. She reported worsening respiratory symptoms with the use of Breo likely related to the dry powder, will trial mist inhaler. Will monitor symptoms and call if no improvement. On exam patient with inspiratory bibasilar crackles, may be related to previously noted scarring however will send for CXR today. All questions were answered and patient is in agreement of plan. Will follow-up in 6-8 weeks or sooner if needed. Orders: Orders XR chest 2V Today R05.9 - Cough, unspecified Medications: New fluticasone propion-salmeterol 115-21 mcg/actuation (Advair HFA) 2 puffs inhalation Q12H 12 grams 3RF Coding Level of Care Code Est Pt Level 4 (29156) Diagnoses Asthma J45.909 Nocturnal hypoxemia G47.34 Dyspnea on exertion R06.09 Chronic heart failure with preserved ejection fraction I50.32 Heart failure chronicity: chronic
[2025-06-15 13:01] VITALS: BP 122/64; PULSE 68; O2SAT 95; BMI 32.3
--- OUTSIDE RECORDS SUMMARY | 2025-06-15 14:00 | XMS_ITS | Clinical Summary ---
Author Organization [facility] Address [address] [place] [phone] Phone Care Team Providers Care Extruding Press Operator Name Role Phone Pcp, Unknown Primary Care [...] file Insurance [facility] MEDICARE PART A & [facility] MED[facility] PART A & B [facility] MEDICARE PART A & B [facility] [employer] Care Teams Extruding Press Operator Relationship Specialty Start Date End Date Pcp, Unknown PCP - General 02/09/25 Additional Source Comments The information contained in this document represents components of the legal health record. It is not the complete legal health record.[facility]
== END 2025-06-15 13:30 | disposition home or self-care (01) ==
LOC: HO.HPSW 12:50
PROVIDERS: PCP Internal Medicine; Visit Provider Nurse Practitioner Family
DX: J45.909 Unspecified asthma, uncomplicated (principal); G47.34 Idiopathic sleep related nonobstructive alveolar hypoventilation; R06.09 Other forms of dyspnea; I50.32 Chronic diastolic (congestive) heart failure
CPT/HCPCS: 99214

== ENCOUNTER → 2025-06-15 14:09 | Outpatient (BNV) | payer MEDICARE, MEDICAID, SELFPAY | PROVIDERS: PCP Internal Medicine; Visit Provider Radiology Diagnostic Radiology | DX: R05.9 Cough, unspecified (principal) | CPT/HCPCS: 71046 ==

== ENCOUNTER 2025-06-19 10:24 | Emergency (ER) | payer MEDICARE, MEDICAID, SELFPAY ==
--- NOTE | ~2025-06-19 | XR_ITS ---
CLINICAL HISTORY: swelling, pain 4 view right knee Comparison: CR/SR - XR KNEE 3 VIEWS RIGHT - 02/05/24 12:01 EDT Findings: No fractures or dislocations. Mild tricompartmental joint space narrowing. Suprapatellar joint effusion measures 5.1 cm in craniocaudal diameter by 0.9 cm in AP diameter. No radiopaque foreign body. There is subcutaneous edema. IMPRESSION: 1. Small joint effusion. 2. No acute fracture or dislocation. 3. Mild arthritic changes. This document has been electronically signed by: Alicia Vega DO on 06/19/2025 13:21:40
--- NOTE | ~2025-06-19 | US_ITS ---
CLINICAL HISTORY: posterior knee pain pain, r o dvt VENOUS DUPLEX ULTRASOUND RIGHT LOWER EXTREMITY Comparison: None provided Findings: The visualized deep veins are fully compressible with normal Doppler color flow and spectral tracings. No popliteal cyst. A knee effusion measuring roughly 4.4 x 0.8 x 3.3 cm (Length x Height x Width) is identified. IMPRESSION: 1. Negative for right lower extremity deep vein thrombosis. 2. Small knee effusion. This document has been electronically signed by: Alicia Vega DO on 06/19/2025 14:22:25
[2025-06-19 10:25] VITALS: BP 127/60; PULSE 68; RESP 16; TEMP 37; O2SAT 96; BMI 32.1
[2025-06-19 10:37] VITALS: BP 121/53; PULSE 70; RESP 18; O2SAT 95
--- OUTSIDE RECORDS SUMMARY | 2025-06-19 10:55 | XMS_ITS | Clinical Summary ---
Author Organization [facility] Address [address] [place] [id number] Phone Care Team Providers Care Fleece Tier Name Role Phone Pcp, Unknown Primary Care [...] file Insurance [facility]IC[facility] A [facility] MEDICARE PART A & B [facility]IC[facility] A & B [facility] MEDICARE PART A & B [facility] Q[employer] Care Teams Fleece Tier Relationship Specialty Start Date End Date Pcp, Unknown PCP - General 02/09/25 Additional Source Comments The information contained in this document represents components of the legal health record. It is not the complete legal health record.[facility]
[2025-06-19 11:08] LABS: MANUAL DIFF FLAG NO
[2025-06-19 11:14] LABS: Hematocrit 28.9 % (37.0-47.0); Hemoglobin 9.4 g/dl (12.0-16.0); Imm Gran Abs Auto 0.10 X10*3/uL (0.00-0.03); Imm Gran Pct Auto 1.1 % (0.0-0.4); Lymphocytes Absolute Auto 2.7 X10*3/uL (1.2-4.9); Mean Corpuscular HGB Conc 32.5 g/dl (31.0-35.0); Mean Corpuscular Hemoglobin 29.2 pg (27.0-33.0); Mean Corpuscular Volume 89.8 fL (80.0-98.0); NRBC Abs Auto 0.000 X10*3/uL (0.0-0.012); NRBC Pct Auto 0.0 /100WBC (0.0-0.2); Platelet Count 152 X10*3/uL (160-400); Red Blood Count 3.22 X10*6/uL (4.20-5.50); White Blood Count 9.3 X10*3/uL (4.8-10.8)
[2025-06-19 11:18] LABS: INTERNATIONAL NORM RATIO 1.8 (0.9-1.1); Prothrombin Time 20.4 SEC (10.9-12.4)
--- NOTE | 2025-06-19 11:40 | ED.GENADULT ---
HPI - General Adult General Chief complaint: General Medical Stated complaint: knee pain and swelling Time Seen by Provider: 06/19/25 10:39 Source: patient and family Mode of arrival: wheelchair Limitations: no limitations History of Present Illness ED Provider: Tamera Nassar APRN HPI narrative: This is a 75-year-old female who has history of CKD, diabetes, gout, hypertension, hyperlipidemia, asthma, CVA on DOAC presents to the ER with complaints of right knee pain and swelling for 2 days. Patient denies any injury or trauma. Patient reports history of gout but has not had gout in her right knee before. She denies any associated fevers, chills, redness or warmth. No recent travel. No recent surgeries or hospitalizations. Patient reports she has been compliant with all her medications. She denies any associated numbness or tingling of the extremity. She does have pain over the posterior right knee. Related Data Home Medications ?Medication ?Instructions ?Recorded ?Confirmed acetaminophen 500 mg tablet 1,000 mg PO DAILY PRN Pain 02/06/24 06/03/25 insulin lispro 100 unit/mL See Protocol subcut TIDWM 03/01/24 06/03/25 subcutaneous pen (Humalog KwikPen (U-100) Insulin) insulin glargine 100 unit/mL 18 unit subcut QPM 04/03/25 06/03/25 subcutaneous solution (Lantus U-100 Insulin) Previous Rx's ?Medication ?Instructions ?Recorded lancets 28 gauge (FreeStyle #300 ea 02/06/24 Lancets) blood-glucose meter (FreeStyle #1 ea 02/07/24 Lite Meter kit) blood-glucose meter (FreeStyle #1 ea 02/13/24 Lite Meter kit) blood sugar diagnostic (FreeStyle #100 ea 03/13/24 Lite Strips) Breo Ellipta 100 mcg-25 mcg/dose 1 inh inhalation DAILY #60 ea 01/25/25 powder for inhalation (fluticasone furoate-vilanterol) blood sugar diagnostic (FreeStyle #200 strips 03/18/25 Lite Strips) lancets 28 gauge (FreeStyle #200 ea 03/18/25 Lancets) dapagliflozin propanediol 5 mg 5 mg PO DAILY #90 tabs 03/19/25 tablet (Farxiga) atorvastatin 80 mg tablet 80 mg PO BEDTIME #90 tabs 04/07/25 isosorbide mononitrate 30 mg 30 mg PO DAILY #90 tabs 04/07/25 tablet,extended release 24 hr amlodipine 2.5 mg tablet 7.5 mg (3 x 2.5 mg) PO DAILY #270 04/16/25 tabs apixaban 5 mg tablet (Eliquis) 5 mg PO BID #60 tabs 05/11/25 pen needle, diabetic 32 gauge x #100 ea 05/21/25 furosemide 20 mg tablet 20 mg PO Q OTHER DAY edema #30 tabs 06/03/25 carvedilol 25 mg tablet 25 mg PO BID #180 tabs 06/14/25 fluticasone propionate 115 2 puff inhalation Q12H #12 grams 06/15/25 mcg-salmeterol 21 mcg/actuation HFA inhaler (Advair HFA) prednisone 20 mg tablet 20 mg PO DAILY #5 tabs 06/19/25 Allergies Allergy/AdvReac Type Severity Reaction Status Date / Time Penicillins (PENICILLINS) Allergy Unknown Rash Verified 06/19/25 10:27 lactose AdvReac Mild Unknown Verified 06/19/25 10:27 shellfish Allergy Mild Unknown Uncoded 06/15/25 13:04 Review of Systems Review of Systems: Yes all other systems are reviewed and are negative Constitutional: Constitutional: Reports no additional constitutional complaints, Denies body ache(s), Denies chills, Denies fever(s), Denies headache(s) and Denies weakness Eyes: Eyes: Reports no additional eye complaints and Denies change in vision ENT: Reports system reviewed and no additional complaints, except as documented, Denies dizziness, Denies headache(s), Denies nasal congestion, Denies nasal discharge and Denies neck pain Cardiovascular: Cardiovascular: Reports no additional cardiovascular complaints, Denies chest pain, Denies leg edema and Denies dyspnea Respiratory: Respiratory: Reports no additional respiratory complaints, Denies cough and Denies dyspnea Gastrointestinal: Gastrointestinal: Reports no additional gastrointestinal complaints, Denies abdominal pain, Denies diarrhea, Denies nausea and Denies vomiting Genitourinary: Genitourinary: Reports no additional female genitourinary complaints and Denies urinary incontinence Musculoskeletal: Musculoskeletal: Reports no additional musculoskeletal complaints, Denies back pain, Reports arthralgias, Reports joint swelling, Denies limited range of motion, Denies neck pain, Denies numbness and Denies tingling Integumentary/Breasts: Skin/Breast: Reports system reviewed and no additional complaints, except as docu and Denies rash Neurologic: Reports system reviewed and no additional complaints, except as documented, Denies Abnormal speech present, Denies dizziness, Denies headache(s), Denies numbness, Denies tingling and Denies weakness PMF Past Medical History Attestation statement: The following information was validated with the patient. Source: old records reviewed and nursing notes reviewed Medical History Hospital discharge follow-up CKD stage 3b, GFR 30-44 ml/min Recurrent UTI Diabetes type 2, no ocular involvement Right knee pain UTI (urinary tract infection) Uncontrolled type 2 diabetes mellitus with hyperglycemia Pain of left calf Acute hyperkalemia Dysuria History of UTI Well woman exam Asthma Risk for falls Establishing care with new doctor, encounter for History of stroke Acute cystitis with hematuria Class 1 obesity Leg edema CVA (cerebral vascular accident) (HFpEF) heart failure with preserved ejection fraction Left leg weakness SOB (shortness of breath) Gout of big toe Elevated troponin Bilateral wheezing Increasing shortness of breath 2+ pitting edema Cataract Hypertension Gout Surgical History History of cholecystectomy H/O: hysterectomy Social History Social History Household Members: Children Household Members Other:: Daughter. Housing: Apartment Do you presently have visiting nurse or other home services: Yes ([employer] and [employer].) Alcohol intake: never Comment: refusing alarms Patient Tobacco Use Status: Former Tobacco user e-Cigarette/Vaping Use: Never Used Second Hand Smoke Exposure: No Advance Directives Date on File: 04/08/24 service: No Current occupational status: retired Cognitive needs: No Hearing needs: No Vision needs: No Physical Exam ED Vital Signs: Vital Signs - 24 hr 06/19/25 10:25 06/19/25 10:37 06/19/25 12:41 Temperature 98.6 F 97.4 F Pulse Rate 68 70 61 Respiratory Rate 16 18 16 Blood Pressure 127/60 121/53 L 132/67 Pulse Oximetry 96 95 95 Oxygen Delivery Method Room Air Room Air Room Air 06/19/25 14:38 Temperature 97.4 F Pulse Rate 61 Respiratory Rate 16 Blood Pressure 132/67 Pulse Oximetry 95 Oxygen Delivery Method Room Air BMI result Body Mass Index 32.1 Const General: cooperative, healthy appearing, comfortable and no acute distress Orientation/consciousness: patient oriented x3 Limitations: no limitations HENMT Head: Yes normal to inspection Ears: hearing grossly normal bilaterally General nose exam: Normal external nose present Face and sinus: Yes normal facial exam Mouth: Normal oral and palatal mucosa present Throat: Yes posterior oropharynx normal Eyes General: appearance normal, both eyes and all related structures Pupils: Equal, round and reactive pupils present Neck Neck: Yes normal visual inspection Chest Chest palpation & inspection: normal inspection of the chest Resp Effort & Inspection: normal respiratory effort Auscultation: clear to auscultation bilaterally Cardio Rate: regular rate Rhythm: regular rhythm Peripheral pulses: Peripheral pulses 2+ throughout GI Inspection: Yes normal to inspection Palpation (GI): Soft to palpation and nontender Auscultation: normal bowel sounds Back/Spine/Pelvis Thoracic/Lumbar Spine: thoracic and lumbar spine normal to inspection Skin General skin exam: no rashes or lesions noted Neuro General: patient oriented x3, no focal motor deficits and normal sensation to monofilament Cranial nerves: Yes Equal, round and reactive pupils present Cognition (Neuro): normal cognition Speech: No Abnormal speech present Gait exam (Neuro): Normal gait present Motor exam (neuro): 5/5 motor strength present throughout Extrem Other: There is some swelling and diffuse tenderness over the right knee. There is full active and passive range of motion of the right knee. There is no warmth or redness noted. There is some pain on palpation of the posterior right knee. There is no pain on palpation to the right calf. There is normal DP and PT pulses. Normal distal sensation. Course Course Course Narrative: Labs show an elevated uric acid otherwise unremarkable. X-ray shows a small knee effusion. Ultrasound shows small effusion with no acute DVT. Likely gout. Patient has multiple contraindications to NSAIDs and colchicine. Will give her low-dose prednisone. She has sliding scale insulin coverage and is aware that her blood sugar might be elevated while on the prednisone. She will adjust accordingly. Recommended Kelvin wrap. Reviewed worrisome signs and symptoms of when to return to the emergency room. Comfortable plan for discharge home. Procedures Orthopedic Splinting/Casting Injury #1: Side: right Upper Extremity Immobilizer: Kelvin wrap Lower Extremity Injury Location: knee Medical Decision Making Medical Decision Making [facility] Narrative: This is a 75-year-old female who has history of CKD, diabetes, gout, hypertension, hyperlipidemia, asthma, CVA on DOAC presents to the ER with complaints of right knee pain and swelling for 2 days. Patient denies any injury or trauma. Patient reports history of gout but has not had gout in her right knee before. She denies any associated fevers, chills, redness or warmth. No recent travel. No recent surgeries or hospitalizations. Patient reports she has been compliant with all her medications. She denies any associated numbness or tingling of the extremity. She does have pain over the posterior right knee. There is some swelling and diffuse tenderness over the right knee. There is full active and passive range of motion of the right knee. There is no warmth or redness noted. There is some pain on palpation of the posterior right knee. There is no pain on palpation to the right calf. There is normal DP and PT pulses. Normal distal sensation. This seems like gout. I doubt septic joint with full range of motion. I will obtain labs, US, x-ray Differential Diagnosis Differential Diagnoses: The differential diagnosis associated with the presentation includes Gout Septic joint Doubt DVT, cellulitis, bakers cyst, fracture dislocation Admission/Observation Consideration of admission/observation: Escalation of care including admission/observation considered Lab Data [facility] Lab Attestation statement: I reviewed the patient's lab results. 06/19/25 11:04 06/19/25 11:04 Labs: Lab Results 06/19/25 Range/Units 11:04 WBC 9.3 (4.8-10.8) X10*3/uL RBC 3.22 L (4.20-5.50) X10*6/uL Hgb 9.4 L (12.0-16.0) g/dl Hct 28.9 L (37.0-47.0) % MCV 89.8 (80.0-98.0) fL MCH 29.2 (27.0-33.0) pg MCHC 32.5 (31.0-35.0) g/dl RDW 14.3 (11.0-16.0) % Plt Count 152 L (160-400) X10*3/uL MPV 10.7 (9.4-12.3) fL Immature Gran % (Auto) 1.1 H (0.0-0.4) % Neut % (Auto) 51.8 (45-73) % Lymph % (Auto) 29.5 (20-40) % [place] % (Auto) 8.8 (2-11) % Eos % (Auto) 8.7 H (0-4) % Baso % (Auto) 0.1 (0-2) % Lymph # (Auto) 2.7 (1.2-4.9) X10*3/uL [place] # (Auto) 0.8 (0.1-1.2) X10*3/uL Eos # (Auto) 0.8 H (0.0-0.4) X10*3/uL Baso # (Auto) 0.0 (0.0-0.2) X10*3/uL Abs Immat Gran (auto) 0.10 H (0.00-0.03) X10*3/uL Absolute Neuts (auto) 4.8 (2.0-8.3) x10*3/uL Absolute Nucleated RBC 0.000 (0.0-0.012) X10*3/uL Nucleated RBC % (auto) 0.0 (0.0-0.2) /100WBC PT 20.4 H D (10.9-12.4) SEC INR 1.8 H (0.9-1.1) Sodium 139 (135-145) mmol/L Potassium 5.1 (3.3-5.1) mmol/L Chloride 112 H (96-108) mmol/L Carbon Dioxide 19 L (22-29) mmol/L Anion Gap 13 (12-20) BUN 44 H (9-16) mg/dL Creatinine 2.08 H (0.5-1.4) mg/dL Estim Creat Clear Calc 20.8 Estimated GFR 23 Random Glucose 199 H (60-115) mg/dL Uric Acid 10.1 H (2.4-5.7) mg/dL Calcium 9.1 (8.4-10.2) mg/dL Total Bilirubin 0.3 (0.0-1.0) mg/dL AST 20 (5-31) U/L ALT 18 (0-31) U/L Alkaline Phosphatase 130 H (39-117) U/L Total Protein 6.3 L (6.5-8.0) g/dL Albumin 3.9 (3.5-5.0) g/dL Independent Interpretation I performed an independent interpretation of an: Plain X-Ray and Ultrasound Interpretation: I independently reviewed the x-ray and venous US and agree with the radiology report Radiology Impression Discussion of test interpretation with radiology: I have reviewed the radiologist's reading. Radiologist Impression: [address] [address] XRay Report Signed Patient: Enma Gaston MR#: [id number] : 1950 Acct:[id number] Age/Sex: 75 / F ADM Date: 06/19/25 Loc: .ED Attending Dr: Ordering Physician: Tamera Nassar NP Date of Service: 06/19/25 Procedure(s): XR knee RT 4V Accession Number(s): [id number] cc: Keeley Samuels MD; Tamera Nassar NP~ CLINICAL HISTORY: swelling, pain 4 view right knee Comparison: CR/SR - XR KNEE 3 VIEWS RIGHT - 02/05/24 12:01 EDT Findings: No fractures or dislocations. Mild tricompartmental joint space narrowing. Suprapatellar joint effusion measures 5.1 cm in craniocaudal diameter by 0.9 cm in AP diameter. No radiopaque foreign body. There is subcutaneous edema. IMPRESSION: 1. Small joint effusion. 2. No acute fracture or dislocation. 3. Mild arthritic changes. [address] [address] Ultrasound Report Signed Patient: Enma Gaston MR#: [id number] : 1950 Acct:[id number] Age/Sex: 75 / F ADM Date: 06/19/25 Loc: .ED Attending Dr: Ordering Physician: Tamera Nassar NP Date of Service: 06/19/25 Procedure(s): US venous duplex LE RT Accession Number(s): [id number] cc: Keeley Samuels MD; Tamera Nassar NP~ CLINICAL HISTORY: posterior knee pain pain, r o dvt VENOUS DUPLEX ULTRASOUND RIGHT LOWER EXTREMITY Comparison: None provided Findings: The visualized deep veins are fully compressible with normal Doppler color flow and spectral tracings. No popliteal cyst. A knee effusion measuring roughly 4.4 x 0.8 x 3.3 cm (Length x Height x Width) is identified. IMPRESSION: 1. Negative for right lower extremity deep vein thrombosis. 2. Small knee effusion. This document has been electronically signed by: Alicia Vega DO on 06/19/2025 14:22:25 Independent Historian Clinical information obtained from an independent historian. History obtained from or confirmed by: Other (daughter ) Discharge Plan Discharge Clinical Impression: Gout Qualifiers: Gout site: unspecified site Gout etiology: unspecified cause Chronicity: chronic Presence of tophus: without tophus Qualified Code(s): M1A.9XX0 - Chronic gout, unspecified, without tophus (tophi) Patient Disposition: Home, Self-Care Instructions: Gout (ED) Additional Instructions: Elevate the extremity Apply ice to the affected area Use the Kelvin wrap for discomfort as needed Expect that with prednisone her blood sugar might be elevated for the next few days you may need to adjust her insulin accordingly Follow-up with her primary care doctor as needed next week Prescriptions: New prednisone 20 mg tablet 20 mg PO DAILY Qty: 5 0RF No Action (DME) lancets [FreeStyle Lancets] 28 gauge misc See Rx Instructions .Route Qty: 300 0RF Rx Instructions: Test 3 times per day (DME) blood-glucose meter [FreeStyle Lite Meter] Kit See Rx Instructions .Route Qty: 1 0RF Rx Instructions: As directed to test blood sugar 3 times per day (DME) FreeStyle Lite Strips Strip See Rx Instructions .Route Qty: 100 5RF Rx Instructions: three times per day fluticasone furoate-vilanterol [Breo Ellipta] 100-25 mcg/dose blister with device 1 inh inhalation DAILY Qty: 60 6RF (DME) lancets [FreeStyle Lancets] 28 gauge misc Qty: 200 2RF Rx Instructions: Check blood sugar three times a day as directed. (DME) FreeStyle Lite Strips Strip Qty: 200 2RF Rx Instructions: Test three times a day or as directed. dapagliflozin propanediol [Farxiga] 5 mg tablet 5 mg PO DAILY Qty: 90 0RF atorvastatin 80 mg tablet 80 mg PO BEDTIME Qty: 90 3RF Rx Instructions: dose increased isosorbide mononitrate 30 mg tablet extended release 24 hr 30 mg PO DAILY Qty: 90 3RF amlodipine 2.5 mg tablet 7.5 mg PO DAILY Qty: 270 3RF Eliquis 5 mg tablet 5 mg PO BID Qty: 60 2RF (DME) pen needle, diabetic 32 gauge x 5/32 needle See Rx Instructions .Route Qty: 100 5RF Rx Instructions: Inject insulin 4 times per day carvedilol 25 mg tablet 25 mg PO BID Qty: 180 1RF insulin lispro [Humalog KwikPen Insulin] 100 unit/mL insulin pen See Protocol SUBCUT TIDWM Protocol: Insulin Correction Scale Less than or equal to 110 ---- Give (units): 0 111 to 150 Give (units): 0 151 to 200 Give (units): 4 201 to 250 Give (units): 6 251 to 300 Give (units): 8 301 to 350 Give (units): 10 Greater than 350 Give (units): 12 Call if Blood Glucose > : 400 Rx Instructions: Blood Sugar: <150 - 0 units 151-200 - 4 units 201-250 - 6 units 251-300 - 8 units 301-350 - 10 units 351-400 -12 units over 400 -14 units and call acetaminophen 500 mg Tablet 1,000 mg PO DAILY PRN (Reason: Pain) (DME) blood-glucose meter [FreeStyle Lite Meter] Kit Qty: 1 0RF Rx Instructions: As Directed insulin glargine [Lantus U-100 Insulin] 100 unit/mL solution 18 unit subcut QPM fluticasone propion-salmeterol [Advair HFA] 115-21 mcg/actuation HFA aerosol inhaler 2 puff inhalation Q12H Qty: 12 3RF furosemide 20 mg tablet 20 mg PO Q OTHER DAY Qty: 30 2RF Referrals: Keeley Samuels MD [Primary Care Provider, Internal Medicine] Interventions: ED Discharge Assessment Last Done: 06/19/25 14:38 Discharge Date/Time: 06/19/25 14:44 Print Language: Samoan
[2025-06-19 11:47] LABS: Alanine Aminotransferase 18 U/L (0-31); Albumin Level 3.9 g/dL (3.5-5.0); Alkaline Phosphatase 130 U/L (39-117); Anion Gap 13 (12-20); Aspartate Amino Transferase 20 U/L (5-31); Blood Urea Nitrogen 44 mg/dL (9-16); Calcium 9.1 mg/dL (8.4-10.2); Carbon Dioxide 19 mmol/L (22-29); Chloride 112 mmol/L (96-108); Creatinine Clr Calc Pharmacy 20.8; Estimated Glomerular Filt Rate 23; Potassium 5.1 mmol/L (3.3-5.1); Sodium 139 mmol/L (135-145); Total Protein 6.3 g/dL (6.5-8.0)
[2025-06-19 12:22] LABS: Uric Acid 10.1 mg/dL (2.4-5.7)
[2025-06-19 12:41] VITALS: BP 132/67; PULSE 61; RESP 16; TEMP 36.3; O2SAT 95
[2025-06-19 14:38] VITALS: BP 132/67; PULSE 61; RESP 16; TEMP 36.3; O2SAT 95
== END 2025-06-19 14:44 | disposition home or self-care (01) ==
PROVIDERS: Nurse Practitioner Family; Emergency Provider Emergency Medicine; PCP Internal Medicine
DX: M1A.9XX0 Chronic gout, unspecified, without tophus (tophi) (principal); M25.461 Effusion, right knee; I10 Essential (primary) hypertension; I12.9 Hypertensive chronic kidney disease with stage 1 through stage 4 chronic kidney disease, or unspecified chronic kidney disease; E11.22 Type 2 diabetes mellitus with diabetic chronic kidney disease; N18.32 Chronic kidney disease, stage 3b; Z79.899 Other long term (current) drug therapy; Z87.440 Personal history of urinary (tract) infections
CPT/HCPCS: 36415; 73564; 80053; 84550; 85025; 85610; 93971; 99284

== ENCOUNTER → 2025-06-19 11:36 | Outpatient (BNV) | payer MEDICARE, MEDICAID, SELFPAY | PROVIDERS: Emergency Provider Emergency Medicine; PCP Internal Medicine; Visit Provider Radiology Diagnostic Radiology | DX: M25.561 Pain in right knee (principal); M25.461 Effusion, right knee | CPT/HCPCS: 73564; 93971 ==

== ENCOUNTER 2025-06-22 09:03 | Outpatient (AMB) | payer MEDICARE, MEDICAID, SELFPAY ==
[2025-06-22 09:08] VITALS: BP 102/56; PULSE 66; BMI 31.6
--- NOTE | 2025-06-22 09:08 | A.OFFVIS_ITS ---
Vital Signs 06/22/25 09:08 Height 4 ft 11 in Weight 156 lb 8 oz BMI 31.6 BP 102/56 L Blood Pressure Location Lt brachial Position Sitting Pulse 66 Intake Visit Reasons: 8 wks, Cologuard results Intake Note: [place] presents in the office as a 8 week follow up for her cologuard results. CC: no concerns at this time. Export Administrator Required: Yes Export Administrator Name: daughter Allergies Penicillins (PENICILLINS) Allergy (Unknown, Verified 06/22/25 09:08) Rash lactose Adverse Reaction (Mild, Verified 06/22/25 09:08) Unknown shellfish Allergy (Mild, Uncoded 06/22/25 09:08) Unknown HPI HPI 8 wks, Cologuard results: Details: Assessment & Plan (1) Encounter for colorectal cancer screening using Cologuard test: Code(s): Z12.11 - Encounter for screening for malignant neoplasm of colon; Z12.12 - Encounter for screening for malignant neoplasm of rectum Category: Medical (2) (HFpEF) heart failure with preserved ejection fraction: Code(s): I50.30 - Unspecified diastolic (congestive) heart failure Category: Medical Qualifiers: Heart failure chronicity: chronic Qualified Code(s): I50.32 - Chronic diastolic (congestive) heart failure (3) Diabetes mellitus with multiple complications: Code(s): E11.8 - Type 2 diabetes mellitus with unspecified complications Category: Medical (4) Chronic kidney disease (CKD) stage G4/A1, severely decreased glomerular filtration rate (GFR) between 15-29 mL/min/1.73 square meter and albuminuria creatinine ratio less than 30 mg/g: Code(s): N18.4 - Chronic kidney disease, stage 4 (severe) Category: Medical (5) Asthma, moderate persistent: Code(s): J45.40 - Moderate persistent asthma, uncomplicated Category: Medical Qualifiers: Asthma complication type: uncomplicated Qualified Code(s): J45.40 - Moderate persistent asthma, uncomplicated Plan She is her today with her daughter who supplies most of the history. They deny any GI problems. Given her total health picture, I think it would be more prudent to do a COloguard instead of the risk vs benefit to her of a colonoscopy. She has had 2 prior scopes that were negative. She is w/c bound and has mobility issues that would also, s/p CVA and hemiparesis, that would make prep difficult. There is no known FHX of crc or polyps. We watch the Colguard instructional video and they are in agreement that this would be a preferred first step in her CRC screening. ROV 8 weeks. TODAY'S VISIT The Cologuard was negative. We can repeat this in 3 years [facility] Medical History Hospital discharge follow-up CKD stage 3b, GFR 30-44 ml/min Recurrent UTI Diabetes type 2, no ocular involvement Right knee pain UTI (urinary tract infection) Uncontrolled type 2 diabetes mellitus with hyperglycemia Pain of left calf Acute hyperkalemia Dysuria History of UTI Well woman exam Asthma Risk for falls Establishing care with new doctor, encounter for History of stroke Acute cystitis with hematuria Class 1 obesity Leg edema CVA (cerebral vascular accident) (HFpEF) heart failure with preserved ejection fraction Left leg weakness SOB (shortness of breath) Gout of big toe Elevated troponin Bilateral wheezing Increasing shortness of breath 2+ pitting edema Cataract Hypertension Gout Surgical History History of cholecystectomy H/O: hysterectomy Social History Household Members: Children Household Members Other:: Daughter. Housing: Apartment Do you presently have visiting nurse or other home services: Yes ([employer] and [employer].) Alcohol intake: never Comment: refusing alarms Patient Tobacco Use Status: Former Tobacco user e-Cigarette/Vaping Use: Never Used Second Hand Smoke Exposure: No Advance Directives Date on File: 04/08/24 service: No Current occupational status: retired Cognitive needs: No Hearing needs: No Vision needs: No Female Reproductive History Menstrual Age of Menarche: 20 Physical Exam Vital Signs: Last Vital Signs Pulse 66 06/22/25 09:08 BP 102/56 L 06/22/25 09:08 BMI result Body Mass Index 31.6 Assessment & Plan Assessment & Plan (1) Encounter for colorectal cancer screening using Cologuard test: Comment: 04/2025= negative Cologuard repeat 3 years Code(s): Z12.11 - Encounter for screening for malignant neoplasm of colon; Z12.12 - Encounter for screening for malignant neoplasm of rectum Category: Medical Plan The Cologuard was negative. We can repeat this in 3 years Coding Level of Care Code Est Pt Level 3 (45690) Diagnoses Encounter for colorectal cancer screening using Cologuard test Z12.11; Z12.12
== END 2025-06-22 10:01 | disposition home or self-care (01) ==
LOC: HO.HGI 09:04
PROVIDERS: PCP Family Medicine Geriatric Medicine; Visit Provider Nurse Practitioner
DX: Z71.2 Person consulting for explanation of examination or test findings (principal)
CPT/HCPCS: 99213

== ENCOUNTER → 2025-06-22 09:03 | Outpatient (BNVA) | payer MEDICARE, MEDICAID, SELFPAY | PROVIDERS: PCP Family Medicine Geriatric Medicine; Visit Provider Nurse Practitioner | DX: Z12.11 Encounter for screening for malignant neoplasm of colon (principal); Z12.12 Encounter for screening for malignant neoplasm of rectum | CPT/HCPCS: 99212 ==

== ENCOUNTER → 2025-07-07 23:59 | Outpatient (BNV) | payer MEDICARE, MEDICAID, SELFPAY | PROVIDERS: PCP Internal Medicine; Visit Provider Internal Medicine | DX: I69.354 Hemiplegia and hemiparesis following cerebral infarction affecting left non-dominant side (principal); I13.0 Hypertensive heart and chronic kidney disease with heart failure and stage 1 through stage 4 chronic kidney disease, or unspecified chronic kidney disease; I50.32 Chronic diastolic (congestive) heart failure; N18.4 Chronic kidney disease, stage 4 (severe); E11.22 Type 2 diabetes mellitus with diabetic chronic kidney disease | CPT/HCPCS: G0179 ==

== ENCOUNTER 2025-07-16 22:10 | Emergency (ER) | payer MEDICARE, MEDICAID, SELFPAY ==
--- NOTE | ~2025-07-16 | XR_ITS ---
CLINICAL HISTORY: fell today Exam: AP pelvis with AP and frog-leg lateral views of the left hip Comparison: CR/AL/SR - XR HIP 1 VIEW LEFT WITH PELVIS - 03/01/24 12:20 EDT Findings: Bony alignment of the hip joints is anatomic. No acute fracture. Mild degenerative change of both hip joints. Mild degenerative change of the sacroiliac joints. Pubic rami are intact. IMPRESSION: No acute fracture. This document has been electronically signed by: Enrrique Bay MD on 07/17/2025 00:15:21
--- NOTE | ~2025-07-16 | CT_ITS ---
CLINICAL HISTORY: fell hit left side of head CT head without contrast Comparison: CT - CT HEAD/BRAIN WO IV CON - 08/15/24 21:30 EDT Findings: There is generalized cerebral and cerebellar atrophy as seen previously. The size and shape of the ventricular system is within normal limits for this degree of atrophy. Moderate scattered areas of low attenuation seen within the deep white matter. Unchanged areas of encephalomalacia within the right frontal lobe medially along its superior aspect. There are lacunar infarcts within the left basal ganglia and within the left external capsule as seen previously. Bilateral basal ganglia calcifications. Dense vascular calcification of the vertebrobasilar system and cavernous carotid arteries. No intracranial hemorrhage. No midline shift or mass effect. No calvarial fractures. Moderate mucosal thickening throughout the left maxillary sinus. IMPRESSION: 1. No acute intracranial findings. Specifically, no fracture or intracranial hemorrhage. This document has been electronically signed by: Enrrique Bay MD on 07/17/2025 00:34:07
--- NOTE | 2025-07-16 22:15 | ED.FALL ---
HPI - Fall General Chief Complaint: Fall Stated Complaint: fell & hit head less than 30 mins ago/ headache Time Seen by Provider: 07/17/25 02:21 Source: patient and family Mode of arrival: ambulatory Limitations: no limitations History of Present Illness ED Provider: Dr. Yeimi Hansen HPI Narrative: 75-year-old female with extensive past medical history including diabetes, hypertension, heart failure, CVA with left-sided residual deficits, CKD stage 4 presenting after a fall that occurred at home immediately prior to arrival. Patient states she walks with a walker at baseline. Admits she was walking in the house and reached up to turn the light on and fell backwards, hitting her head on the floor. Admits when she landed on the floor she felt as though the room was spinning for a moment but that has since resolved. Denies severe headaches, neck pain, vision changes, nausea, vomiting, chest pain or difficulty breathing. Has baseline left-sided residual deficits from her CVA. Those are unchanged. Does not feel dizzy or unsteady on her feet. Related Data Home Medications ?Medication ?Instructions ?Recorded ?Confirmed acetaminophen 500 mg tablet 1,000 mg PO DAILY PRN Pain 02/06/24 06/03/25 insulin lispro 100 unit/mL See Protocol subcut TIDWM 03/01/24 06/03/25 subcutaneous pen (Humalog KwikPen (U-100) Insulin) fluticasone furoate 200 1 ea inhalation DAILY 06/22/25 mcg-vilanterol 25 mcg/dose inhalation powder (Breo Ellipta) insulin glargine 100 unit/mL (3 unit subcut 06/22/25 mL) subcutaneous pen (Basaglar KwikPen U-100 Insulin) Previous Rx's ?Medication ?Instructions ?Recorded lancets 28 gauge (FreeStyle #300 ea 02/06/24 Lancets) blood-glucose meter (FreeStyle #1 ea 02/07/24 Lite Meter kit) blood-glucose meter (FreeStyle #1 ea 02/13/24 Lite Meter kit) blood sugar diagnostic (FreeStyle #100 ea 03/13/24 Lite Strips) blood sugar diagnostic (FreeStyle #200 strips 03/18/25 Lite Strips) lancets 28 gauge (FreeStyle #200 ea 03/18/25 Lancets) dapagliflozin propanediol 5 mg 5 mg PO DAILY #90 tabs 03/19/25 tablet (Farxiga) atorvastatin 80 mg tablet 80 mg PO BEDTIME #90 tabs 04/07/25 isosorbide mononitrate 30 mg 30 mg PO DAILY #90 tabs 04/07/25 tablet,extended release 24 hr amlodipine 2.5 mg tablet 7.5 mg (3 x 2.5 mg) PO DAILY #270 04/16/25 tabs apixaban 5 mg tablet (Eliquis) 5 mg PO BID #60 tabs 05/11/25 pen needle, diabetic 32 gauge x #100 ea 05/21/25 furosemide 20 mg tablet 20 mg PO Q OTHER DAY edema #30 tabs 06/03/25 carvedilol 25 mg tablet 25 mg PO BID #180 tabs 06/14/25 fluticasone propionate 115 2 puff inhalation Q12H #12 grams 06/15/25 mcg-salmeterol 21 mcg/actuation HFA inhaler (Advair HFA) prednisone 20 mg tablet 20 mg PO DAILY #5 tabs 06/19/25 Allergies Allergy/AdvReac Type Severity Reaction Status Date / Time Penicillins (PENICILLINS) Allergy Unknown Rash Verified 07/16/25 22:20 lactose AdvReac Mild Unknown Verified 07/16/25 22:20 shellfish Allergy Mild Unknown Uncoded 07/16/25 22:20 Review of Systems Review of Systems: As per HPI, full review of systems performed and negative but for the above mentioned pertinent positives and negatives. [facility] Past Medical History Medical History Hospital discharge follow-up CKD stage 3b, GFR 30-44 ml/min Recurrent UTI Diabetes type 2, no ocular involvement Right knee pain UTI (urinary tract infection) Uncontrolled type 2 diabetes mellitus with hyperglycemia Pain of left calf Acute hyperkalemia Dysuria History of UTI Well woman exam Asthma Risk for falls Establishing care with new doctor, encounter for History of stroke Acute cystitis with hematuria Class 1 obesity Leg edema CVA (cerebral vascular accident) (HFpEF) heart failure with preserved ejection fraction Left leg weakness SOB (shortness of breath) Gout of big toe Elevated troponin Bilateral wheezing Increasing shortness of breath 2+ pitting edema Cataract Hypertension Gout Surgical History History of cholecystectomy H/O: hysterectomy Social History Social History Household Members: Children Household Members Other:: Daughter. Housing: Apartment Do you presently have visiting nurse or other home services: Yes ([facility] and [facility].) Alcohol intake: never Comment: refusing alarms Patient Tobacco Use Status: Former Tobacco user e-Cigarette/Vaping Use: Never Used Second Hand Smoke Exposure: No Advance Directives: No Advance Directives Information Provided: Yes Advance Directives Date on File: 04/08/24 Do you have a plan to hurt others: No Plan service: No Current occupational status: retired Cognitive needs: No Hearing needs: No Vision needs: No Physical Exam Exam: Exam: GENERAL: Chronically ill-appearing, conversant, no acute distress. SKIN: Normal skin color for ethnicity, warm, dry, no rashes noted. HEENT: Normocephalic, atraumatic, no stridor, posterior oropharynx nonerythematous, EOMI. NECK: Soft, supple, full ROM, midline structures nontender, no step-offs, no deformities, no lymphadenopathy. CHEST: Heart regular rate and rhythm, no murmurs, symmetric chest rise and fall. PULMONARY: Clear to auscultation bilaterally, no labored breathing, no wheezes/rhales/ rhonchi. ABDOMINAL: Soft, nondistended, nontender, positive bowel sounds in all quadrants. : Deferred. MUSCULOSKELETAL: Normal tone, full range of motion, no deformities, no peripheral edema. NEURO: Alert and oriented to person, CN II through XII intact, no focal neurologic deficits, ambulatory with shuffling gait with the assistance of a walker. PSYCHIATRIC: Flat affect, fluid speech, appropriate demeanor. Vital Signs: Vital Signs: Last Vital Signs Temp 97.8 F 07/16/25 22:18 Pulse 71 07/16/25 22:18 Resp 16 07/16/25 22:18 BP 149/66 H 07/16/25 22:18 Pulse Ox 96 07/16/25 22:18 O2 Del Method Room Air 07/16/25 22:18 BMI result Body Mass Index 30.3 Course Course Course Narrative: This is a RME preformed in triage by Zaynab Dillard PA-C. Date: 07/16/25, time 1017pm. Patient presents with head trauma, hip hurts left side. Fell going to the bathroom 20 mins ago. Hx of CVA, residual left sided weakness. No sxs preceding sxs. Lives with daughter Ashley. Patient uses wheelchair and walker to get around. No LOC. Vision changed black for a little bit. Work UP: Head CT lab (on apixaban), L hip with pelvis. basic labs Will defer full ROS and PE to treating provider. Patient will continued to be monitored in the interim. Medical Decision Making Medical Decision Making [facility] Narrative: Patient presents today with chief complaint of head trauma after a fall. Different diagnosis on this patient includes intracranial hemorrhage, skull fracture, neck injury including fracture or spinal cord pathology. Other diagnoses considered would include chest or abdominal trauma as well as long bone fractures. Based on my physical exam, the ordered imaging modalities are indicated. The patient specifically does not show any signs of central cord syndrome as evidenced by equal strength in the upper extremities with normal two-point discrimination. Sensation is not altered. GCS is appropriate. Patient is neurovascularly intact. There are no signs of vascular emergency. No signs of shock. No respiratory distress. Patient was given Tylenol for pain control. 2:36 AM 07/17/2025 (Dr. Yeimi Hansen, D.O.) CT imaging of the brain shows no acute bleeding. Patient is ambulatory to the restroom using a walker without assistance. At this point I feel she is stable for discharge to follow up at her primary care doctor. Discussed importance of follow-up as well as strict return precautions to the emergency department. Discharged home in stable and improved condition. Differential Diagnosis Differential Diagnoses: The differential diagnosis associated with the presentation includes (as above) Admission/Observation Consideration of admission/observation: Escalation of care including admission/observation considered Lab Data [facility] Lab Attestation statement: I reviewed the patient's lab results. 07/16/25 22:28 07/16/25 22:28 Labs: Lab Results 07/16/25 Range/Units 22:28 WBC 9.8 (4.8-10.8) X10*3/uL RBC 3.41 L (4.20-5.50) X10*6/uL Hgb 9.9 L (12.0-16.0) g/dl Hct 29.8 L (37.0-47.0) % MCV 87.4 (80.0-98.0) fL MCH 29.0 (27.0-33.0) pg MCHC 33.2 (31.0-35.0) g/dl RDW 14.5 (11.0-16.0) % Plt Count 194 D (160-400) X10*3/uL MPV 10.7 (9.4-12.3) fL Immature Gran % (Auto) 1.3 H (0.0-0.4) % Neut % (Auto) 45.7 (45-73) % Lymph % (Auto) 30.3 (20-40) % [place] % (Auto) 12.6 H (2-11) % Eos % (Auto) 9.9 H (0-4) % Baso % (Auto) 0.2 (0-2) % Lymph # (Auto) 3.0 (1.2-4.9) X10*3/uL [place] # (Auto) 1.2 (0.1-1.2) X10*3/uL Eos # (Auto) 1.0 H (0.0-0.4) X10*3/uL Baso # (Auto) 0.0 (0.0-0.2) X10*3/uL Abs Immat Gran (auto) 0.13 H (0.00-0.03) X10*3/uL Absolute Neuts (auto) 4.5 (2.0-8.3) x10*3/uL Absolute Nucleated RBC 0.000 (0.0-0.012) X10*3/uL Nucleated RBC % (auto) 0.0 (0.0-0.2) /100WBC PT 19.0 H (10.9-12.4) SEC INR 1.7 H (0.9-1.1) Sodium 139 (135-145) mmol/L Potassium 4.9 (3.3-5.1) mmol/L Chloride 109 H (96-108) mmol/L Carbon Dioxide 23 (22-29) mmol/L Anion Gap 12 (12-20) BUN 43 H (9-16) mg/dL Creatinine 2.35 H (0.5-1.4) mg/dL Estim Creat Clear Calc 17.9 Estimated GFR 20 Random Glucose 199 H (60-115) mg/dL Calcium 9.5 (8.4-10.2) mg/dL Radiology Impression Discussion of test interpretation with radiology: I have reviewed the radiologist's reading. Prescription Management I considered prescription management with: Pain Medication Chronic Conditions Patient?s care impacted by: Diabetes, Hypertension and Other (CKD, CHF) Discharge Plan Discharge Clinical Impression: Unwitnessed fall, Closed head injury Patient Disposition: Home, Self-Care Instructions: Head Injury (ED), Fall Prevention for Older Adults (ED) Additional Instructions: Use Tylenol for headaches. Return to the emergency department with any new or worsening symptoms including: Worsening headaches despite Tylenol, fevers greater than 100?, inability to move 1 side of your body, difficulty with word finding, any new symptom that concerns you. Call 911 with any medical emergency. Prescriptions: No Action (DME) lancets [FreeStyle Lancets] 28 gauge misc See Rx Instructions .Route Qty: 300 0RF Rx Instructions: Test 3 times per day (DME) blood-glucose meter [FreeStyle Lite Meter] Kit See Rx Instructions .Route Qty: 1 0RF Rx Instructions: As directed to test blood sugar 3 times per day (DME) FreeStyle Lite Strips Strip See Rx Instructions .Route Qty: 100 5RF Rx Instructions: three times per day (DME) lancets [FreeStyle Lancets] 28 gauge misc Qty: 200 2RF Rx Instructions: Check blood sugar three times a day as directed. (DME) FreeStyle Lite Strips Strip Qty: 200 2RF Rx Instructions: Test three times a day or as directed. dapagliflozin propanediol [Farxiga] 5 mg tablet 5 mg PO DAILY Qty: 90 0RF atorvastatin 80 mg tablet 80 mg PO BEDTIME Qty: 90 3RF Rx Instructions: dose increased isosorbide mononitrate 30 mg tablet extended release 24 hr 30 mg PO DAILY Qty: 90 3RF amlodipine 2.5 mg tablet 7.5 mg PO DAILY Qty: 270 3RF Eliquis 5 mg tablet 5 mg PO BID Qty: 60 2RF (DME) pen needle, diabetic 32 gauge x 5/32 needle See Rx Instructions .Route Qty: 100 5RF Rx Instructions: Inject insulin 4 times per day carvedilol 25 mg tablet 25 mg PO BID Qty: 180 1RF insulin lispro [Humalog KwikPen Insulin] 100 unit/mL insulin pen See Protocol SUBCUT TIDWM Protocol: Insulin Correction Scale Less than or equal to 110 ---- Give (units): 0 111 to 150 Give (units): 0 151 to 200 Give (units): 4 201 to 250 Give (units): 6 251 to 300 Give (units): 8 301 to 350 Give (units): 10 Greater than 350 Give (units): 12 Call MD if Blood Glucose > : 400 Rx Instructions: Blood Sugar: <150 - 0 units 151-200 - 4 units 201-250 - 6 units 251-300 - 8 units 301-350 - 10 units 351-400 -12 units over 400 -14 units and call acetaminophen 500 mg Tablet 1,000 mg PO DAILY PRN (Reason: Pain) (DME) blood-glucose meter [FreeStyle Lite Meter] Kit Qty: 1 0RF Rx Instructions: As Directed prednisone 20 mg tablet 20 mg PO DAILY Qty: 5 0RF fluticasone propion-salmeterol [Advair HFA] 115-21 mcg/actuation HFA aerosol inhaler 2 puff inhalation Q12H Qty: 12 3RF furosemide 20 mg tablet 20 mg PO Q OTHER DAY Qty: 30 2RF fluticasone furoate-vilanterol [Breo Ellipta] 200-25 mcg/dose blister with device 1 ea inhalation DAILY insulin glargine [Basaglar KwikPen U-100 Insulin] 100 unit/mL (3 mL) insulin pen subcut Print Language: Malian
[2025-07-16 22:18] VITALS: BP 149/66; PULSE 71; RESP 16; TEMP 36.6; O2SAT 96; BMI 30.3
[2025-07-16 22:33] LABS: MANUAL DIFF FLAG NO
[2025-07-16 22:35] LABS: Hematocrit 29.8 % (37.0-47.0); Hemoglobin 9.9 g/dl (12.0-16.0); Imm Gran Abs Auto 0.13 X10*3/uL (0.00-0.03); Imm Gran Pct Auto 1.3 % (0.0-0.4); Lymphocytes Absolute Auto 3.0 X10*3/uL (1.2-4.9); Mean Corpuscular HGB Conc 33.2 g/dl (31.0-35.0); Mean Corpuscular Hemoglobin 29.0 pg (27.0-33.0); Mean Corpuscular Volume 87.4 fL (80.0-98.0); NRBC Abs Auto 0.000 X10*3/uL (0.0-0.012); NRBC Pct Auto 0.0 /100WBC (0.0-0.2); Platelet Count 194 X10*3/uL (160-400); Red Blood Count 3.41 X10*6/uL (4.20-5.50); White Blood Count 9.8 X10*3/uL (4.8-10.8)
[2025-07-16 22:42] LABS: INTERNATIONAL NORM RATIO 1.7 (0.9-1.1); Prothrombin Time 19.0 SEC (10.9-12.4)
[2025-07-16 22:48] LABS: Anion Gap 12 (12-20); Blood Urea Nitrogen 43 mg/dL (9-16); Calcium 9.5 mg/dL (8.4-10.2); Carbon Dioxide 23 mmol/L (22-29); Chloride 109 mmol/L (96-108); Creatinine Clr Calc Pharmacy 17.9; Estimated Glomerular Filt Rate 20; Potassium 4.9 mmol/L (3.3-5.1); Sodium 139 mmol/L (135-145)
--- OUTSIDE RECORDS SUMMARY | 2025-07-17 01:38 | XMS_ITS | Clinical Summary ---
Author Organization [facility] Address [address] [place] [id number] Phone Care Team Providers Care [employer] Name Role Phone Pcp, Unknown Primary Care [...] 2002 OSTEOPOROSIS SCREENING INITI AL (ONE-TIME) 2017 INFLUENZA VACCINE (#1) 2025 COVID-19 VACCINE ( - 2023-2 5 season) 2025 DEPRESSION SCREENING 04/09/2026 04/09/2025 RSV VACCINE (1 [...] file Insurance MEDICARE PART A & B [id number] [place] [address] MEDICARE PART A & B [facility] MEDIC[facility] PART A & B [facility] MEDIC[facility] PART A & B Member Subscriber Plan / Payer (Ef fective 2010-) Name:Loy Gaston Member ID:[id number] Relation to Subscriber:Self Name:Loy Gaston Subscriber ID:[id number] Payer ID:[id number] Group ID:Not on file Type:Medicare Address: [employer] [address] [address] [facility] MEDICARE PART A & B [facility] Care Teams [employer] Relationship Specialty Start Date End Date Pcp, Unknown PCP - General 02/09/25 Additional Source Comments The information contained in this document represents components of the legal health record. It is not the complete legal health record.[facility]
[2025-07-17 03:03] VITALS: BP 124/82; PULSE 78; RESP 16; TEMP 36.6; O2SAT 97
--- NOTE | 2025-07-17 03:04 | PC.NURSE ---
walks steadily without assist or symptoms with walker. discharged with daughter in wheelchair
== END 2025-07-17 03:05 | disposition home or self-care (01) ==
PROVIDERS: Physician Assistant Medical; Emergency Provider Emergency Medicine; PCP Internal Medicine
DX: S09.90XA Unspecified injury of head, initial encounter (principal); S79.912A Unspecified injury of left hip, initial encounter; M25.552 Pain in left hip; R10.2 Pelvic and perineal pain; R51.9 Headache, unspecified; X50.1XXA Overexertion from prolonged static or awkward postures, initial encounter; Y93.9 Activity, unspecified; Y92.9 Unspecified place or not applicable; Y99.8 Other external cause status; Z79.899 Other long term (current) drug therapy; Z87.891 Personal history of nicotine dependence
CPT/HCPCS: 36415; 70450; 73502; 80048; 85025; 85610; 99283

== ENCOUNTER → 2025-07-16 22:18 | Outpatient (BNV) | payer MEDICARE, MEDICAID, SELFPAY | PROVIDERS: PCP Internal Medicine; Visit Provider Radiology Diagnostic Radiology | DX: S09.90XA Unspecified injury of head, initial encounter (principal); Z04.3 Encounter for examination and observation following other accident; W19.XXXA Unspecified fall, initial encounter | CPT/HCPCS: 70450; 73502 ==

== ENCOUNTER 2025-07-20 13:36 | Outpatient (AMB) | payer MEDICARE, MEDICAID, SELFPAY ==
[2025-07-20 14:02] VITALS: BP 106/60; PULSE 70
--- NOTE | 2025-07-20 14:02 | A.OFFVIS_ITS ---
Vital Signs 07/20/25 14:02 Height 4 ft 11 in BMI Reason not done Patient refused/unable BP 106/60 Blood Pressure Location Lt brachial Position Sitting Pulse 70 Pulse Source Pulse Oximeter Intake Visit Reasons[place] [facility] [place] Allergies Penicillins (PENICILLINS) Allergy (Unknown, Verified 07/16/25 22:20) Rash lactose Adverse Reaction (Mild, Verified 07/16/25 22:20) Unknown shellfish Allergy (Mild, Uncoded 07/16/25 22:20) Unknown Medication List - Last Reconciled 07/20/25 by NATHANIEL Alvares acetaminophen 1,000 mg PO DAILY PRN amlodipine 7.5 mg (3 x 2.5 mg) PO DAILY apixaban (Eliquis) 5 mg PO BID atorvastatin 80 mg PO BEDTIME blood sugar diagnostic (FreeStyle Lite Strips) three times per day blood sugar diagnostic (FreeStyle Lite Strips) Test three times a day or as directed. blood-glucose meter (FreeStyle Lite Meter kit) As Directed blood-glucose meter (FreeStyle Lite Meter kit) As directed to test blood sugar 3 times per day carvedilol 25 mg PO BID furosemide 20 mg PO Q OTHER DAY insulin glargine (Basaglar KwikPen U-100 Insulin) units subcut insulin lispro (Humalog KwikPen (U-100) Insulin) See Protocol sliding scale doses subcut TIDWM isosorbide mononitrate ER 30 mg PO DAILY lancets (FreeStyle Lancets) Test 3 times per day lancets (FreeStyle Lancets) Check blood sugar three times a day as directed. pen needle, diabetic Inject insulin 4 times per day HPI HPI [facility] fu: Details: Enma Staples is a 75-year-old female past medical history of prior smoking, hypertension, diabetes, heart failure with preserved EF, CVA who was recently admitted to [facility] with report of chest discomfort. Her troponins were mildly elevated and she was admitted for evaluation. A nuclear stress test was normal. She now presents for follow-up. Today she reports she has been feeling well since her hospital discharge. She has not had any recurrent chest discomfort. Her daughter tells me she gave her a dose of her new inhaler the evening prior to her admission. The patient then woke up in the night with her chest feeling uncomfortable prompting hospital evaluation. She is not use the inhaler again since then and has not had concerning symptoms. She tells me her breathing is comfortable. She wears her oxygen at nighttime. No PND, orthopnea. She does have some mild swelling in her left ankle which is not new. She ambulates with her walker and did have a fall last week when she tried to reach a light to turn it on. She did strike her head and again went to the emergency room. A CT scan of her head showed no acute findings. She reports only mild head soreness at this time. She continues with Eliquis, no signs of bleeding. She has not had any recurrent neurological changes. Daughter is present. She now resides at home with her daughter. She is under stress as her grandson recently . [facility] Medical History Hospital discharge follow-up CKD stage 3b, GFR 30-44 ml/min Recurrent UTI Diabetes type 2, no ocular involvement Right knee pain UTI (urinary tract infection) Uncontrolled type 2 diabetes mellitus with hyperglycemia Pain of left calf Acute hyperkalemia Dysuria History of UTI Well woman exam Asthma Risk for falls Establishing care with new doctor, encounter for History of stroke Acute cystitis with hematuria Class 1 obesity Leg edema CVA (cerebral vascular accident) (HFpEF) heart failure with preserved ejection fraction Left leg weakness SOB (shortness of breath) Gout of big toe Elevated troponin Bilateral wheezing Increasing shortness of breath 2+ pitting edema Cataract Hypertension Gout Surgical History History of cholecystectomy H/O: hysterectomy Social History Household Members: Children Household Members Other:: Daughter. Housing: Apartment Do you presently have visiting nurse or other home services: Yes ([facility] and [employer].) Alcohol intake: never Comment: refusing alarms Patient Tobacco Use Status: Former Tobacco user e-Cigarette/Vaping Use: Never Used Second Hand Smoke Exposure: No Advance Directives Date on File: 04/08/24 service: No Current occupational status: retired Cognitive needs: No Hearing needs: No Vision needs: No Female Reproductive History Menstrual Age of Menarche: 20 Review of Systems Const All systems reviewed & are unremarkable except as noted in HPI and below Denies weakness ENT Denies dizziness Card Denies chest pain, Denies chest pain with activity, Denies syncope, Denies rapid heart rate, Denies pedal edema, Denies edema, Denies leg edema, Denies lig htheadedness, Denies palpitations, Denies dyspnea, Denies dyspnea on exertion and Denies orthopnea Resp Denies cough, Denies dyspnea and Denies dyspnea on exertion GI Denies hematochezia and Denies change in stool character Musc Details: has weakness left leg Reports abnormal gait (uses walker. ), Denies muscle cramps, Reports muscle weakness, Denies numbness, Denies radiating pain into limb and Denies tingling Neuro Reports abnormal gait (uses walker. ), Denies dizziness, Denies syncope, Denies numbness, Denies tingling and Denies weakness Endo Denies palpitations Physical Exam Vital Signs: Last Vital Signs Pulse 70 07/20/25 14:02 BP 106/60 07/20/25 14:02 Const Other: Sitting in wheelchair General: cooperative, healthy appearing, comfortable and no acute distress Orientation/consciousness: patient oriented x3 HEENT Head: Yes normal to inspection Neck Neck: Yes normal visual inspection Resp Effort & Inspection: normal respiratory effort Auscultation: clear to auscultation bilaterally, no crackles, no rales, no rho nchi and no wheezes Cardio Jugular venous distension: no JVD Rate: regular rate Rhythm: regular rhythm Heart sounds: S1 normal heart sound present, S2 normal heart sound present, no murmurs and no rubs Neuro General: patient oriented x3 Extrem Other: Left leg weakness General: Yes normal to inspection Psych Appearance: grossly normal Mental Status: mental status grossly normal Speech and movement: Normal speech and movement present Assessment & Plan Assessment & Plan (1) Chest discomfort: Code(s): R07.89 - Other chest pain Category: Medical Plan[place] [facility] [place] chest discomfort that occurred at rest. She did have slightly elevated troponins. EKGs did not show acute findings. Echocardiogram showed EF greater than 70%, no regional wall motion abnormalities. Nuclear stress test showed no fixed or reversible defects. She does have elevated creatinine which can contribute to the mildly elevated troponins. No recurrent chest discomfort. No further testing needed at this time. Continue with risk factor modification. (2) (HFpEF) heart failure with preserved ejection fraction: Code(s): I50.30 - Unspecified diastolic (congestive) heart failure Category: Medical Qualifiers: Heart failure chronicity: chronic Qualified Code(s): I50.32 - Chronic diastolic (congestive) heart failure Plan: History of heart failure with preserved EF. She has a history of uncontrolled hypertension and has severe LVH on echocardiograms. She had a renal duplex 07/13/2024 showing no evidence of renal artery stenosis. She did have a sleep study done on 07/30/2024 which was negative for obstructive sleep apnea however did show nocturnal hypoxia and she now wears O2 at night. She does not appear fluid overloaded on exam today. Her blood pressure is well controlled at this time. Continue amlodipine, carvedilol, isosorbide, and Lasix. (3) Hypertension: Code(s): I10 - Essential (primary) hypertension Category: Medical Qualifiers: Hypertension type: unspecified Qualified Code(s): I10 - Essential (primary) hypertension Plan: Blood pressure goal less than 130/80. Well controlled at this time. No med changes made. (4) CVA (cerebral vascular accident): Code(s): I63.9 - Cerebral infarction, unspecified Category: Medical Plan: [facility] 03/02/2024 with inability to walk, leg weakness. A brain MRI did show multiple embolic looking acute right HELENA ischemic infarcts, multiple bilateral small chronic infarcts. She was evaluated by Neurology. Recommendation was for anticoagulation for at least 6 months with cardiac evaluation. Echocardiogram did not have findings suggesting PFO/ASD. Carotid ultrasound 03/03/2024 showed right and left internal carotid arteries 0- 49% stenosis. Venous duplex had shown no DVT. She did wear a cardiac event monitor on 07/20/24 for 20 of the 30 days showing sinus rhythm with average heart rate 63, rare SVE, no atrial fibrillation was seen. She has no reports of heart palpitations. She continues on Eliquis at this time. Clinically she is in sinus rhythm. Will review further plan of care with primary psychologist counseling. (5) Nocturnal hypoxemia: Code(s): G47.34 - Idiopathic sleep related nonobstructive alveolar hypoventilation Category: Medical Plan: Compliant with O2 at night. (6) Hyperlipidemia: Code(s): E78.5 - Hyperlipidemia, unspecified Category: Medical Plan: [place] LDL goal less than 100. Labs done 03/31/2025 showed LDL 132. Atorvastatin was increased from 40 mg up to 80 mg daily at that time. She is due for updated fasting lipid profile. Orders entered. (7) Hospital discharge follow-up: Code(s): Z09 - Encounter for follow-up examination after completed treatment for conditions other than malignant neoplasm Category: Medical Plan[place] [facility] recent [facility] [place] reviewed. Plan Time spent on chart review, documentation, interview assessment Coding Level of Care Code Est Pt Level 4 (66548) Complex EM visit Add On G2211 Diagnoses Chest discomfort R07.89 Chronic heart failure with preserved ejection fraction I50.32 Heart failure chronicity: chronic Hypertension, unspecified type I10 Hypertension type: unspecified CVA (cerebral vascular accident) I63.9 Nocturnal hypoxemia G47.34 Hyperlipidemia E78.5 Hospital discharge follow-up Z09 Time Spent (min) 36
--- OUTSIDE RECORDS SUMMARY | 2025-07-20 16:44 | XMS_ITS | Clinical Summary ---
Author Organization [facility] Address [address] [place] [id number] Phone Care Team Providers Care Sales Contract Administrator Name Role Phone Pcp, Unknown Primary Care [...] file Insurance MEDICARE PART A & B [id number] [place] [address] [facility]ICARE PART A & [id number] A & B Member Subscriber Plan / Payer (Ef fective 2010-) Name:Loy Gaston Member ID:[id number] Relation to Subscriber:Self Name:Loy Gaston Subscriber ID:[id number] Payer ID:[id number] Group ID:Not on file Type:Medicare Address: [employer] [address] [address] [facility] MEDICARE PART A & B [facility] Care Teams Sales Contract Administrator Relationship Specialty Start Date End Date Pcp, Unknown PCP - General 02/09/25 Additional Source Comments The information contained in this document represents components of the legal health record. It is not the complete legal health record.[facility]
== END 2025-07-20 14:48 | disposition home or self-care (01) ==
LOC: HO.HCS 13:37
PROVIDERS: PCP Internal Medicine; Visit Provider Nurse Practitioner Family
DX: R07.89 Other chest pain (principal); I50.32 Chronic diastolic (congestive) heart failure; I10 Essential (primary) hypertension; I63.9 Cerebral infarction, unspecified; G47.34 Idiopathic sleep related nonobstructive alveolar hypoventilation; E78.5 Hyperlipidemia, unspecified; Z09 Encounter for follow-up examination after completed treatment for conditions other than malignant neoplasm
CPT/HCPCS: 99214; G2211

== ENCOUNTER → 2025-07-20 13:36 | Outpatient (BNVA) | payer MEDICARE, MEDICAID, SELFPAY | PROVIDERS: PCP Internal Medicine; Visit Provider Nurse Practitioner Family | DX: I11.0 Hypertensive heart disease with heart failure (principal); I50.32 Chronic diastolic (congestive) heart failure; R07.89 Other chest pain; E78.5 Hyperlipidemia, unspecified; G47.34 Idiopathic sleep related nonobstructive alveolar hypoventilation; Z86.73 Personal history of transient ischemic attack (TIA), and cerebral infarction without residual deficits; Z79.01 Long term (current) use of anticoagulants; Z79.899 Other long term (current) drug therapy | CPT/HCPCS: 99212 ==

== ENCOUNTER 2025-07-27 10:56 | Outpatient (AMB) | payer MEDICARE, MEDICAID, SELFPAY ==
[2025-07-27 11:00] VITALS: BP 110/68; PULSE 65; O2SAT 93; BMI 32.3
--- NOTE | 2025-07-27 11:00 | MHC.OFFVIS ---
Vital Signs 07/27/25 11:00 Height 4 ft 11 in Weight 160 lb 2 oz BMI 32.3 BP 110/68 Blood Pressure Location Rt brachial Position Sitting Pulse 65 Pulse Source Pulse Oximeter Pulse Oximetry (%) 93 Oxygen Delivery Method Room Air Intake Visit Reasons: nocturnal hypoxemia Allergies Penicillins (PENICILLINS) Allergy (Unknown, Verified 07/27/25 11:05) Rash lactose Adverse Reaction (Mild, Verified 07/27/25 11:05) Unknown shellfish Allergy (Mild, Uncoded 07/27/25 11:05) Unknown HPI HPI nocturnal hypoxemia: Details: Enma Staples is a pleasant 75 year old female, former minimal smoker, with underlying asthma, CHF, DMII, HTN, 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 Prior home sleep study revealed significant nocturnal hypoxemia <88% for 321 minutes, negative for NOE 06/2024 and continues using 1L supplemental oxygen NOC. 6MWT performed and did not require supplemental oxygen with exertion. Prior PFT revealed moderate obstructive ventilatory defect with positive bronchodilator response and was started on Breo however had stopped using as she could not tolerate the DPI. She was then switched to Advair however after the first dose taken prior to bed, she woke up in the middle of the night with midsternal chest pain prompting ED evaluation at [facility]. During ED evaluation troponins were found to be elevated, kept overnight for observation having echo, ekg and stress test which were unremarkable and discharged the following day. Although low likelihood chest pain related to Advair, she has since avoided and continues with intermittent wheezing with exertion as well as labored breathing with any exertion. [facility] Medical History Hospital discharge follow-up CKD stage 3b, GFR 30-44 ml/min Recurrent UTI Diabetes type 2, no ocular involvement Right knee pain UTI (urinary tract infection) Uncontrolled type 2 diabetes mellitus with hyperglycemia Pain of left calf Acute hyperkalemia Dysuria History of UTI Well woman exam Asthma Risk for falls Establishing care with new doctor, encounter for History of stroke Acute cystitis with hematuria Class 1 obesity Leg edema CVA (cerebral vascular accident) (HFpEF) heart failure with preserved ejection fraction Left leg weakness SOB (shortness of breath) Gout of big toe Elevated troponin Bilateral wheezing Increasing shortness of breath 2+ pitting edema Cataract Hypertension Gout Surgical History History of cholecystectomy H/O: hysterectomy Social History Household Members: Children Household Members Other:: Daughter. Housing: Apartment Do you presently have visiting nurse or other home services: Yes ([facility] and [employer].) Alcohol intake: never Comment: refusing alarms Patient Tobacco Use Status: Former Tobacco user e-Cigarette/Vaping Use: Never Used Second Hand Smoke Exposure: No Advance Directives Date on File: 04/08/24 service: No Current occupational status: retired Cognitive needs: No Hearing needs: No Vision needs: No Female Reproductive History Menstrual Age of Menarche: 20 Review of Systems Const Denies chills, Denies excessive sweating, Denies fever(s), Denies headache(s) and Denies night sweats Eyes Denies dry eyes, Denies irritation and Denies itchy eyes ENT Reports Normal hearing present and Denies headache(s) Card Denies chest pain, Denies chest pain at rest, Denies chest pain with activity, Denies claudication, Reports dyspnea on exertion and Denies paroxysmal nocturnal dyspnea Resp Denies change in phlegm color, Denies chest congestion, Denies cough, Denies excessive phlegm production, Denies pain on inspiration, Denies pain with cough, Reports dyspnea on exertion, Denies stridor and Reports wheezing Musc Denies myalgias Neuro Reports Normal hearing present and Denies headache(s) Endo Denies excessive sweating [place]/Lymph Denies lymphadenopathy Aller/Immun Denies itchy eyes, Denies seasonal rhinorrhea and Reports wheezing Physical Exam Vital Signs: Last Vital Signs Pulse 65 07/27/25 11:00 BP 110/68 07/27/25 11:00 Pulse Ox 93 07/27/25 11:00 Oxygen Delivery Method Room Air 07/27/25 11:00 BMI result Body Mass Index 32.3 Const General: cooperative, healthy appearing, comfortable, no acute distress, well developed and alert Nutritional Appearance: obese Orientation/consciousness: patient oriented x3 Limitations: wheelchair HEENT Head: Yes normal to inspection, Yes normocephalic and Yes atraumatic Ears: hearing grossly normal bilaterally and external ears normal Eyes General: appearance normal, both eyes and all related structures Eyelids: Yes eyelids normal Sclerae: sclerae normal EOM: EOMs intact bilaterally Neck Neck: Yes normal visual inspection and Yes no lymphadenopathy Lymphatic: no lymphadenopathy noted Chest Chest palpation & inspection: normal inspection of the chest Resp Other: inspiratory crackles R>L Effort & Inspection: normal respiratory effort, able to speak in complete sentences, no audible wheezes, no cough, no stridor, not tachypneic, no tripod positioning and no use of accessory muscles Cardio Jugular venous distension: no JVD Rate: regular rate Rhythm: regular rhythm Skin Other: warm, dry General skin exam: no rashes or lesions noted Neuro General: patient oriented x3 Cranial nerves: Yes Normal hearing present Cognition (Neuro): normal cognition Extrem Other: 1-2+ pitting edema BLE Psych Appearance: grossly normal and well kempt Speech and movement: Normal speech and movement present and Clear speech present Affect: normal affect Attitude: cooperative Thought process: Normal thought process present Thought content: Normal thought content present Insight: Good insight present (Psych) Judgement: Good judgement present (Psych) Assessment & Plan Assessment & Plan (1) Asthma: Code(s): J45.909 - Unspecified asthma, uncomplicated Category: Medical (2) Nocturnal hypoxemia: Code(s): G47.34 - Idiopathic sleep related nonobstructive alveolar hypoventilation Category: Medical (3) Dyspnea on exertion: Code(s): R06.09 - Other forms of dyspnea Category: Medical (4) (HFpEF) heart failure with preserved ejection fraction: Code(s): I50.30 - Unspecified diastolic (congestive) heart failure Category: Medical Qualifiers: Heart failure chronicity: chronic Qualified Code(s): I50.32 - Chronic diastolic (congestive) heart failure Plan Enma Staples continues with intermittent wheezing and dyspnea with any exertion. She was trialed on Breo however was unable to tolerate so trialed on Advair which she thought was the precipitating factor to chest pain. ED evaluation did not reveal any significant findings, troponins thought to be chronically elevated per daughter. Inhaler unlikely the cause of chest pain however will hold off at this time, patient agreeable to retrial Breo, although did offer alternative as she had difficulties with the DPI. Will monitor symptoms and call if no improvement. All questions were answered and patient is in agreement of plan. Will follow-up in 6-8 weeks or sooner if needed. Coding Level of Care Code Est Pt Level 4 (59217) Diagnoses Asthma J45.909 Nocturnal hypoxemia G47.34 Dyspnea on exertion R06.09 Chronic heart failure with preserved ejection fraction I50.32 Heart failure chronicity: chronic
--- OUTSIDE RECORDS SUMMARY | 2025-07-27 12:19 | XMS_ITS | Clinical Summary ---
Author Organization [facility] Address [address] [place] [id number] Phone Care Team Providers Care Flaking Roll Operator Name Role Phone Pcp, Unknown Primary [...] file Insurance MEDICARE PART A & B [id number] [place] [address] [facility]ICARE [facility] A [facility] Member Subscriber Plan / Payer (Ef fective 2010-) Name:Loy Gaston Member ID:[id number] Relation to Subscriber:Self Name:Loy Gaston Subscriber ID:[id number] Payer ID:[id number] Group ID:Not on file Type:Medicare Address: [employer] [address] [place], [place] [id number] [employer] [facility] A & [facility] B Member Subscriber Plan / Payer (Ef fective 2010-) Name:Loy Gaston Member ID:[id number] Relation to Subscriber:Self Name:Loy Gaston Subscriber ID:[id number] Payer ID:[id number] Group ID:Not on file Type:Medicare Address: [employer] [address] [address] [facility] MEDICARE PART A & B [facility] [employer] Care Teams Flaking Roll Operator Relationship Specialty Start Date End Date Pcp, Unknown PCP - General 02/09/25 Additional Source Comments The information contained in this document represents components of the legal health record. It is not the complete legal health record.[facility]
== END 2025-07-27 11:22 | disposition home or self-care (01) ==
PROVIDERS: PCP Internal Medicine; Visit Provider Nurse Practitioner Family
DX: J45.909 Unspecified asthma, uncomplicated (principal); G47.34 Idiopathic sleep related nonobstructive alveolar hypoventilation; R06.09 Other forms of dyspnea; I50.32 Chronic diastolic (congestive) heart failure
CPT/HCPCS: 99214

== ENCOUNTER → 2025-07-27 10:56 | Outpatient (BNVA) | payer MEDICARE, MEDICAID, SELFPAY | PROVIDERS: PCP Internal Medicine; Visit Provider Nurse Practitioner Family | DX: G47.34 Idiopathic sleep related nonobstructive alveolar hypoventilation (principal); J45.909 Unspecified asthma, uncomplicated; R06.09 Other forms of dyspnea; I50.32 Chronic diastolic (congestive) heart failure | CPT/HCPCS: 99212 ==

== ENCOUNTER 2025-08-02 10:52 | Outpatient (AMB) | payer MEDICARE, MEDICAID, SELFPAY ==
[2025-08-02 12:09] VITALS: BP 112/72; PULSE 66; O2SAT 98
--- NOTE | 2025-08-02 12:09 | MHC.OFFWIV ---
Intake Vital Signs 08/02/25 12:09 Height 4 ft 11 in BMI Reason not done Patient refused/unable BP 112/72 Blood Pressure Location Lt brachial Position Sitting Pulse 66 Pulse Source Pulse Oximeter Pulse Oximetry (%) 98 Intake Visit Reasons: EP UTI Patient Tobacco Use Status: Former Tobacco user Allergies Penicillins (PENICILLINS) Allergy (Unknown, Verified 08/02/25 12:19) Rash lactose Adverse Reaction (Mild, Verified 08/02/25 12:19) Unknown shellfish Allergy (Mild, Uncoded 07/27/25 11:05) Unknown Do you need a note to return to daycare/school/sports/work: No HPI HPI Comments History of Present Illness Details History - The patient is a 75-year-old female presenting with urinary symptoms. - She has a history of recurrent urinary tract infections, with the last episode occurring a couple of months ago, requiring hospitalization and IV antibiotics. - The patient reports urinary hesitancy and dribbling, with occasional blood noted. - She has chronic kidney disease, which complicates her urinary tract infections. - The patient has a history of a stroke approximately a year and a half ago, resulting in some mobility issues and confusion. - She uses a walker for mobility and experiences difficulty straightening her body, particularly her left leg. - She has needed help with her walker. - The patient has diabetes mellitus, with recent blood glucose levels ranging from 250 to 300 mg/dL, higher than her usual 150 mg/dL. - She has allergies to penicillin, cephalosporins, milk, and shellfish, complicating antibiotic selection. - She denies abd pain, back pain, stones, fever, chills, CP, SOB, vaginal bleeding or discharge. Physical Exam General: Cooperative, healthy appearing, comfortable, no acute distress and well developed Cardiac: Normal S1 and S2. RRR, no M/R/G noted. Respiratory: Normal respiratory effort and able to speak in complete sentences. Clear to auscultation bilaterally. No w/r/r noted. Skin: No rashes or lesions noted. GI: Normal inspection. Normal BS noted. Soft, non-tender, non-distended. No TTP of all 4 quadrants. No guarding or rebound tenderness noted. Back: Negative CVA bilaterally Patient was informed and verbally consented to the use of an ambient scribe for clinic note documentation during this visit. [facility] Medical History Hospital discharge follow-up CKD stage 3b, GFR 30-44 ml/min Recurrent UTI Diabetes type 2, no ocular involvement Right knee pain UTI (urinary tract infection) Uncontrolled type 2 diabetes mellitus with hyperglycemia Pain of left calf Acute hyperkalemia Dysuria History of UTI Well woman exam Asthma Risk for falls Establishing care with new doctor, encounter for History of stroke Acute cystitis with hematuria Class 1 obesity Leg edema CVA (cerebral vascular accident) (HFpEF) heart failure with preserved ejection fraction Left leg weakness SOB (shortness of breath) Gout of big toe Elevated troponin Bilateral wheezing Increasing shortness of breath 2+ pitting edema Cataract Hypertension Gout Surgical History History of cholecystectomy H/O: hysterectomy Social History Household Members: Children Household Members Other:: Daughter. Housing: Apartment Do you presently have visiting nurse or other home services: Yes ([facility] and [facility].) Alcohol intake: never Comment: refusing alarms Patient Tobacco Use Status: Former Tobacco user e-Cigarette/Vaping Use: Never Used Second Hand Smoke Exposure: No Advance Directives Date on File: 04/08/24 service: No Current occupational status: retired Cognitive needs: No Hearing needs: No Vision needs: No Female Reproductive History Menstrual Age of Menarche: 20 Review of Systems Const All systems reviewed & are unremarkable except as noted in HPI and below Physical Exam Vital Signs: Last Vital Signs Pulse 66 08/02/25 12:09 BP 112/72 08/02/25 12:09 Pulse Ox 98 08/02/25 12:09 Results AMB Urinalysis, Automated UA Leukoctes 0 Mike/uL Last Edit by Oskar Negron CMA on 08/02/25 12:21 UA Nitrite Negative Last Edit by Oskar Negron CMA on 08/02/25 12:21 UA Urobilinogen 0.2 mg/dL Last Edit by Oskar Negron CMA on 08/02/25 12:21 UA Protein 100 mg/dL Last Edit by Oskar Negron CMA on 08/02/25 12:21 UA pH 6.0 Last Edit by Oskar Negron CMA on 08/02/25 12:21 UA Blood 25 [place]/uL Last Edit by Oskar Negron CMA on 08/02/25 12:21 UA Specific [place] 1.015 Last Edit by Oskar Negron CMA on 08/02/25 12:21 UA Ketone Negative Last Edit by Oskar Negron CMA on 08/02/25 12:21 UA Bilirubin 0 mg/dL Last Edit by Oskar Negron CMA on 08/02/25 12:21 UA Glucose 0 mg/dL Last Edit by Oskar Negron CMA on 08/02/25 12:21 Results Reviewed Results Reviewed: Laboratory Last Values Urine pH (Auto) 6.0 08/02/25 12:04 Specific [place] (Auto) 1.015 08/02/25 12:04 Urine Protein (Auto) 100 mg/dL 08/02/25 12:04 Glucose (UA)(Auto) 0 mg/dL 08/02/25 12:04 Urine Ketones (Auto) Negative 08/02/25 12:04 Urine Blood (Auto) 25 [place]/uL 08/02/25 12:04 Urine Nitrite (Auto) Negative 08/02/25 12:04 Urine Bilirubin (Auto) 0 mg/dL 08/02/25 12:04 Urine Urobilinogen (Auto) 0.2 mg/dL 08/02/25 12:04 Leukocyte Esterase (Auto) 0 Mike/uL 08/02/25 12:04 Assessment & Plan Assessment & Plan (1) Urinary frequency: Code(s): R35.0 - Frequency of micturition Plan Maybe an UTI based on symtoms and UA in the office 1+blood and protein Plan - Initiate nitrofurantoin for urinary tract infection management, pending urine culture results. - Send urine culture to confirm infection and adjust treatment based on sensitivity results. - Monitor blood glucose levels closely due to recent elevations, potentially related to infection. - Follow up with nephrology for chronic kidney disease management and ensure compatibility of prescribed medications. - Review and adjust medications considering the patient's allergies to penicillin and cephalosporins. Orders: Orders AMB Urinalysis Automated Today Z13.9 - Encounter for screening, unspecified Urine Culture Today N39.0 - Urinary tract infection, site not specified Medications: New nitrofurantoin monohyd/m-cryst 100 mg (Macrobid) must administer with a meal/food 100 mg PO Q12H 10 caps 0RF 5 days Coding Level of Care Code Est Pt Level 3 (35964) Diagnoses Urinary frequency R35.0
--- OUTSIDE RECORDS SUMMARY | 2025-08-02 13:10 | XMS_ITS | Clinical Summary ---
Author Organization [facility] Address [address] [place] [phone] Phone Care Team Providers Care Court Interpreter Name Role Phone Pcp, Unknown Primary Care [...] 2017 INFLUENZA VACCINE (#1) 2025 COVID-19 VACCINE (1 - 2024-2 6 season) 2025 DEPRESSION SCREENING 04/09/2026 04/09/2025 RSV [...] file Insurance MEDICARE PART A & B [id number] [place] [address] [facility] B Member Subscriber Plan / Payer (Ef fective 2010-) Name:Loy Gaston Member ID:[id number] Relation to Subscriber:Self Name:Loy Gaston Subscriber ID:[id number] Payer ID:[id number] Group ID:Not on file Type:Medicare Address: [employer] [address] [address] [facility] MEDICARE PART A & B [facility] Care Teams Court Interpreter Relationship Specialty Start Date End Date Pcp, Unknown PCP - General 02/09/25 Additional Source Comments The information contained in this document represents components of the legal health record. It is not the complete legal health record.[facility]
== END 2025-08-02 12:32 | disposition home or self-care (01) ==
PROVIDERS: PCP Internal Medicine; Visit Provider Physician Assistant Medical
DX: R35.0 Frequency of micturition (principal); Z13.9 Encounter for screening, unspecified

== ENCOUNTER 2025-08-02 10:52 | Outpatient (REF) | payer MEDICARE, MEDICAID, SELFPAY | END 2025-08-02 10:53 | disposition home or self-care (01) | LOC: HO.LNP 10:52 | PROVIDERS: PCP Internal Medicine; Visit Provider Physician Assistant Medical | DX: R35.0 Frequency of micturition (principal); E11.22 Type 2 diabetes mellitus with diabetic chronic kidney disease; N18.32 Chronic kidney disease, stage 3b; Z13.89 Encounter for screening for other disorder; Z87.440 Personal history of urinary (tract) infections | CPT/HCPCS: 81003; 87086; 99212 ==

== ENCOUNTER 2025-08-04 11:10 | Outpatient (AMB) | payer MEDICARE, MEDICAID, SELFPAY ==
[2025-08-04 11:13] VITALS: BP 120/74; PULSE 67; O2SAT 98; BMI 32.3
--- NOTE | 2025-08-04 11:13 | A.OFFPC_ITS ---
Vital Signs 08/04/25 11:13 Height 4 ft 11 in Weight 160 lb BMI 32.3 BP 120/74 Blood Pressure Location Lt brachial Position Sitting Pulse 67 Pulse Source Pulse Oximeter Pulse Oximetry (%) 98 Intake Visit Reasons: s/p fall Allergies Penicillins (PENICILLINS) Allergy (Unknown, Verified 08/04/25 11:13) Rash lactose Adverse Reaction (Mild, Verified 08/04/25 11:13) Unknown shellfish Allergy (Mild, Uncoded 07/27/25 11:05) Unknown Medication List - Last Reconciled 08/04/25 by Keeley Samuels MD acetaminophen 1,000 mg PO DAILY PRN amlodipine 7.5 mg (3 x 2.5 mg) PO DAILY apixaban (Eliquis) 5 mg PO BID atorvastatin 80 mg PO BEDTIME blood sugar diagnostic (FreeStyle Lite Strips) three times per day blood sugar diagnostic (FreeStyle Lite Strips) Test three times a day or as directed. blood-glucose meter (FreeStyle Lite Meter kit) As Directed blood-glucose meter (FreeStyle Lite Meter kit) As directed to test blood sugar 3 times per day carvedilol 25 mg PO BID furosemide 20 mg PO Q OTHER DAY insulin glargine (Basaglar KwikPen U-100 Insulin) units subcut insulin lispro (Humalog KwikPen (U-100) Insulin) See Protocol sliding scale doses subcut TIDWM isosorbide mononitrate ER 30 mg PO DAILY lancets (FreeStyle Lancets) Test 3 times per day lancets (FreeStyle Lancets) Check blood sugar three times a day as directed. nitrofurantoin monohyd/m-cryst 100 mg (Macrobid) 100 mg PO Q12H 5 days pen needle, diabetic Inject insulin 4 times per day Tobacco use date assessed: 04/14/25 Fall risk assessment: 2 + Falls in past year Last assessed Fall Risk: 08/04/25 Dental Screening Dental Screen Date: 03/10/25 HPI s/p fall HPI Details Patient is a 75-year-old female with a history of diabetes mellitus hypertension, heart failure, CVA with left-sided residual deficit, chronic kidney disease stage 4 presented to emergency room on 07/17/2025 after having a fall that occurred at her home. At baseline patient is able to walk with the help of walker, she reached up to turn the light on and fell backwards hitting her head on the floor. On arrival she denied any severe headaches neck pain vision changes nausea vomiting nor did she had any chest pain or difficulty breathing Patient is unsteady on her feet and feels dizzy off and on chronically In emergency room her blood pressure was 149/66 she was afebrile with pulse of 71 and pulse ox 96 on room air Head CT scan was taken as patient is on apixaban x-ray left hip and pelvic and basic labs were ordered CT scan of head showed no acute bleed In emergency room patient was able to ambulate with help of walker and was going to restroom without assistance Her hemoglobin was 9.9 in emergency room Electrolytes stable creatinine 2.35 patient has a chronic kidney disease After evaluation patient was discharged home She is taking breaks eager 5 mg daily Atorvastatin 80 mg Isosorbide mononitrate 30 mg Amlodipine 2.5 mg Eliquis 5 mg Carvedilol 25 mg Insulin lispro as per insulin sliding scale Acetaminophen as needed Prednisone 20 mg only 5 tablets at the time of visiting to emergency room Advair Frusemide 20 mg And insulin glargine [place] [facility] Dr. Prajapati cardiology Dr. Dolan nephrology last visit December of this year Neurology Dr. Samuels last visit February of last year OBGYN Dr. Yi last visit December of this [facility] last visit December this [facility] last visit September of last year She came in today with her daughter for a follow-up appointment Diabetes Mellitus: - Blood glucose levels have been fluctua ting with readings between 250 mg/dL and as high as 326 mg/dL. - Home glucose monitoring with noted geovani vations and utilization of a sliding scale insulin regimen, especially for mornings with fasting glucose readings at 160 mg/dL to 190 mg/dL.. - Recent consultation noted periods of h ypoglycemic episodes leading to adjustments in insulin dosing; currently back to 18 units of long-acting insulin in the morning. - Nutritional intake includes avoidance of excessive carbohydrates and preference for proteins and vegetables. - Reports excessive thirst due to elevat ed glucose levels and resultant frequent urination. Acute Kidney Compromise: - we will continue to keep an eye also p atient is to continue with Nephrology follow-ups - Hospital visit included an evaluation of blood chemistry and kidney function which was reportedly fluctuating.. Anemia: - of chronic disease in 9 range stable. Edema and Heart Concerns: - Observations of crackling in lungs due to fluid accumulation, indicating periods of dyspnea particularly on exertion. - patient is currently using frusemide 2 0 mg every other day, I have recommended to daughter to start keeping her every day for next 7-10 days until her lungs clear up Back pain: - Reports ongoing back pain without effe ctive relief from Tylenol; history of lidocaine patch use suggested for symptomatic relief. Medications: - Insulin, [facility] Patient is also on short-acting insulin as per insulin sliding scale - Tylenol for back pain. - Furosemide every other day for fluid r etention and pulmonary congestion. - Melatonin reported for sleep disturban cornelius. - cardiac meds Social History: - The patient lives in proximity to [facility]. - Dietary intake noted with protein and vegetables; occasional pasta and rice consumption is limited. - Monitors fluid intake to manage glycem ic control and kidney pressure. Problem List - Diabetes Mellitus hemoglobin A1c 7.8 t [place] - Chronic Kidney Disease - Anemia - congestive heart failure - Back Pain chronic - risk for fall with recurrent falls, wa lker dependent for ambulation Plan - Insulin regimen adjusted to continue a t 18 units in the morning; advised that tighter glycemic control would benefit renal status. - Furosemide to increase to daily admini stration for the upcoming week to resolve lung fluid accumulation. - Lidocaine patches recommended for back pain as needed to avoid systemic medication due to renal concerns. - Continued monitoring of glucose levels at home and consultation advised for dietary adjustments to address fluctuations. - Annual flu vaccination advised during this visit. Continue follow-up with specialists Review of Systems General: No fever no chills neurological: No headaches no dizziness ear nose throat: No sore throat no hearing difficulty no ear pain cardiovascular: No syncope, no chest pain, no palpitations gastrointestinal: No nausea vomiting or diarrhea Physical Exam general: No acute distress elderly female sitting in a wheelchair HEENT: No acute findings neck: Supple respiratory system: Crackling sounds in the lungs, bilateral cardiovascular: S1-S2 gastrointestinal: No pain extremities: No new findings ROOM CLERK: Alert awake oriented x3 motor intact able to move all extremities skin: Normal turgor [facility] Medical History Risk for falls SOB (shortness of breath) Hospital discharge follow-up CKD stage 3b, GFR 30-44 ml/min Recurrent UTI Diabetes type 2, no ocular involvement Right knee pain UTI (urinary tract infection) Uncontrolled type 2 diabetes mellitus with hyperglycemia Pain of left calf Acute hyperkalemia Dysuria History of UTI Well woman exam Asthma Establishing care with new doctor, encounter for History of stroke Acute cystitis with hematuria Class 1 obesity Leg edema CVA (cerebral vascular accident) (HFpEF) heart failure with preserved ejection fraction Left leg weakness Gout of big toe Elevated troponin Bilateral wheezing Increasing shortness of breath 2+ pitting edema Cataract Hypertension Gout Surgical History History of cholecystectomy H/O: hysterectomy Social History Household Members: Children Household Members Other:: Daughter. Housing: Apartment Do you presently have visiting nurse or other home services: Yes ([facility] and [facility] [employer].) Alcohol intake: never Comment: refusing alarms Patient Tobacco Use Status: Former Tobacco user e-Cigarette/Vaping Use: Never Used Second Hand Smoke Exposure: No Advance Directives Date on File: 04/08/24 service: No Current occupational status: retired Cognitive needs: No Hearing needs: No Vision needs: No Female Reproductive History Menstrual Age of Menarche: 20 Questionnaire PHQ-9 Over the last 2 weeks, how often have you been bothered by any of the following problems? 1. Little interest or pleasure in doing things: not at all 2. Feeling down, depressed, or hopeless: not at all 3. Trouble falling or staying asleep, or sleeping too much: several days 4. Feeling tired or having little energy: not at all 5. Poor appetite or overeating: not at all 6. Feeling bad about yourself - or that you are a failure or have let yourself or your family down: not at all 7. Trouble concentrating on things, such as reading the newspaper or watching television: several days 8. Moving or speaking so slowly that other people could have noticed. Or the opposite - being so fidgety or restless that you have been moving around a lot more than usual: not at all 9. Thoughts that you would be better off or of hurting yourself in some way: not at all Total score: 2 Depression Screening Interpretation: Negative Depression Screening Done: Yes 21370 - PHQ-9 Billing: Yes Source: Developed by Drs. Fermin Bynum, Evelyn Sanchez, Gabo Alamo and colleagues, with an educational rubina from [employer]. Thrive Questionnaire Date Thrive assessed: 02/19/25 I am a: Parent/Caregiver What is your living situation today?: I have a steady place to live Within the past 12 months, did the food you bought not last and you didn't have the money to get more?: I choose not to answer this question Within the past 12 months, did you worry whether your food would run out before you got money to buy more?: I choose not to answer this question Do you have trouble paying for medicines?: No Do you have trouble getting transportation to medical appointments?: No Do you have trouble paying your heating and electricity bill?: No Do you have trouble taking care of your child, family member or friend?: No Do you have trouble with day-to-day activities such as bathing, preparing meals, shopping, managing finances, etc.?: Yes Are you currently unemployed and looking for a job?: I choose not to answer this question Are you interested in more education?: I choose not to answer this question Please select the resources that you would like help with: Food Currently or been in a relationship where the following occur: I choose not to answer THRIVE Score: 0 AUDIT C Alcohol Use Questionnaire (AUDIT-C) 1. How often do you have a drink containing alcohol?: Never 3. How often do you have six or more drinks on one occasion?: Never Total Score: 0 Score Reviewed/Action Taken: Yes LORA-7 AMB Questionnaire LORA-7 Date LORA - 7 assessed: 02/19/25 Feeling nervous, anxious, or on edge: 1 = Several days Not being able to stop or control worryin = Several days Worrying too much about different things: 1 = Several days Trouble relaxin = Several days Being so restless that it is hard to sit still: 0 = Not at all Becoming easily annoyed or irritable: 1 = Several days Feeling afraid as if something awful might happen: 0 = Not at all Total LORA-7 score (0-4 normal; 5-9 mild; 10-14 moderate; 15-21 severe): 5 Source: Developed by Drs. Fermin Bynum, Evelyn Sanchez, Gabo Alamo and colleagues, with an educational rubina from [employer]. LORA-7 Assessment Billing LORA-7 Assessment Tool: LORA-7 Assessment 74064 Physical exam (Primary Care) Vital Signs: Last Vital Signs Pulse 67 08/04/25 11:13 BP 120/74 08/04/25 11:13 Pulse Ox 98 08/04/25 11:13 BMI result Body Mass Index 32.3 Tobacco/Smoking Status: Tobacco use Status Tobacco use date assessed 04/14/25 08/04/25 11:17 Patient Tobacco Use Status Former Tobacco user 08/04/25 11:17 e-Cigarette/Vaping Use Never Used 08/04/25 11:17 PHQ-9: PHQ-9 Score PHQ-9: Total score 2 08/04/25 12:28 Depression Screening Interpretation: Negative Thrive Assessment: Date of Thrive Assessment Date Thrive assessed 02/19/25 08/04/25 11:17 Currently or been in a relationship where the following occur: I choose not to answer Coding Level of Care Code Est Pt Level 5 (78484) Complex EM visit Add On G2211 Diagnoses SOB (shortness of breath) R06.02 Other congestive heart failure I50.9 Heart failure type: other Traumatic injury of head without focal neurologic finding S09.90XA Diabetes mellitus with multiple complications E11.8 Risk for falls Z91.81 Chronic kidney disease (CKD) stage G4/A1, severely decreased glomerular filtration rate (GFR) between 15-29 mL/min/1.73 square meter and albuminuria creatinine ratio less than 30 mg/g N18.4 Dependent on walker for ambulation Z99.89 Additional Codes LORA-7 Assessment Billing - LORA-7 Assessment Tool: LORA-7 Assessment 86673 ([id number]) PHQ-9 - 55011 - PHQ-9 Billing: Yes ([id number]) Time Spent (min) 43 Comment review Hospital notes / imaging/lusn2iifo pt and daughter/coordination/documentation Assessment & Plan Assessment & Plan (1) SOB (shortness of breath): Code(s): R06.02 - Shortness of breath Category: Medical (2) Congestive heart failure: Code(s): I50.9 - Heart failure, unspecified Category: Medical Qualifiers: Heart failure type: other Qualified Code(s): I50.9 - Heart failure, unspecified (3) Traumatic injury of head without focal neurologic finding: Code(s): S09.90XA - Unspecified injury of head, initial encounter Category: Medical (4) Diabetes mellitus with multiple complications: Code(s): E11.8 - Type 2 diabetes mellitus with unspecified complications Category: Medical (5) Risk for falls: Code(s): Z91.81 - History of falling Category: Medical (6) Chronic kidney disease (CKD) stage G4/A1, severely decreased glomerular filtration rate (GFR) between 15-29 mL/min/1.73 square meter and albuminuria creatinine ratio less than 30 mg/g: Code(s): N18.4 - Chronic kidney disease, stage 4 (severe) Category: Medical (7) Dependent on walker for ambulation: Code(s): Z99.89 - Dependence on other enabling machines and devices Category: Medical Plan Patient is a 75-year-old female with a history of diabetes mellitus hypertension, heart failure, CVA with left-sided residual deficit, chronic kidney disease stage 4 presented to emergency room on 07/17/2025 after having a fall that occurred at her home. At baseline patient is able to walk with the help of walker, she reached up to turn the light on and fell backwards hitting her head on the floor. On arrival she denied any severe headaches neck pain vision changes nausea vomiting nor did she had any chest pain or difficulty breathing Patient is unsteady on her feet and feels dizzy off and on chronically In emergency room her blood pressure was 149/66 she was afebrile with pulse of 71 and pulse ox 96 on room air Head CT scan was taken as patient is on apixaban x-ray left hip and pelvic and basic labs were ordered CT scan of head showed no acute bleed In emergency room patient was able to ambulate with help of walker and was going to restroom without assistance Her hemoglobin was 9.9 in emergency room Electrolytes stable creatinine 2.35 patient has a chronic kidney disease After evaluation patient was discharged home She is taking breaks eager 5 mg daily Atorvastatin 80 mg Isosorbide mononitrate 30 mg Amlodipine 2.5 mg Eliquis 5 mg Carvedilol 25 mg Insulin lispro as per insulin sliding scale Acetaminophen as needed Prednisone 20 mg only 5 tablets at the time of visiting to emergency room Advair Frusemide 20 mg And insulin glargine [place] [facility] Dr. Prajapati cardiology Dr. Dolan nephrology last visit December this Neurology Dr. Samuels last visit February OBGYN Dr. Yi last visit December [facility] last visit December [facility] last visit September year She came in today with her daughter for a follow-up appointment Diabetes Mellitus: - Blood glucose levels have been fluctuating with readings between 250 mg/dL and as high as 326 mg/dL. - Home glucose monitoring with noted elevations and utilization of a sliding scale insulin regimen, especially for mornings with fasting glucose readings at 160 mg/dL to 190 mg/dL.. - Recent consultation noted periods of hypoglycemic episodes leading to adjustments in insulin dosing; currently back to 18 units of long-acting insulin in the morning. - Nutritional intake includes avoidance of excessive carbohydrates and preference for proteins and vegetables. - Reports excessive thirst due to elevated glucose levels and resultant frequent urination. Acute Kidney Compromise: - we will continue to keep an eye also patient is to continue with Nephrology follow-ups - Hospital visit included an evaluation of blood chemistry and kidney function which was reportedly fluctuating.. Anemia: - of chronic disease in 9 range stable. Edema and Heart Concerns: - Observations of crackling in lungs due to fluid accumulation, indicating periods of dyspnea particularly on exertion. - patient is currently using frusemide 20 mg every other day, I have recommended to daughter to start keeping her every day for next 7-10 days until her lungs clear up Back pain: - Reports ongoing back pain without effective relief from Tylenol; history of lidocaine patch use suggested for symptomatic relief. Medications: - Insulin, 18 units long-acting in the morning for diabetes management. Patient is also on short-acting insulin as per insulin sliding scale - Tylenol for back pain. - Furosemide every other day for fluid retention and pulmonary congestion. - Melatonin reported for sleep disturbances. - cardiac meds Social History: - The patient lives in proximity to family. - Dietary intake noted with protein and vegetables; occasional pasta and rice consumption is limited. - Monitors fluid intake to manage glycemic control and kidney pressure. Problem List - Diabetes Mellitus hemoglobin A1c 7.8 today - Chronic Kidney Disease - Anemia - congestive heart failure - Back Pain chronic - risk for fall with recurrent falls, walker dependent for ambulation Plan - Insulin regimen adjusted to continue at 18 units in the morning; advised that tighter glycemic control would benefit renal status. - Furosemide to increase to daily administration for the upcoming week to reso lve lung fluid accumulation. - Lidocaine patches recommended for back pain as needed to avoid systemic medication due to renal concerns. - Continued monitoring of glucose levels at home and consultation advised for dietary adjustments to address fluctuations. - Annual flu vaccination advised during this visit. Continue follow-up with specialists Orders: Orders AMB Hemoglobin A1c Today Z13.9 - Encounter for screening, unspecified
== END 2025-08-04 12:20 | disposition home or self-care (01) ==
LOC: HO.HMCC 11:11
PROVIDERS: PCP Internal Medicine; Visit Provider Internal Medicine
DX: R06.02 Shortness of breath (principal); I50.9 Heart failure, unspecified; E11.8 Type 2 diabetes mellitus with unspecified complications; N18.4 Chronic kidney disease, stage 4 (severe); S09.90XA Unspecified injury of head, initial encounter; Z91.81 History of falling; Z99.89 Dependence on other enabling machines and devices

== ENCOUNTER → 2025-08-04 11:10 | Outpatient (BNVA) | payer MEDICARE, MEDICAID, SELFPAY | PROVIDERS: PCP Internal Medicine; Visit Provider Internal Medicine | DX: I13.0 Hypertensive heart and chronic kidney disease with heart failure and stage 1 through stage 4 chronic kidney disease, or unspecified chronic kidney disease (principal); I50.9 Heart failure, unspecified; E11.22 Type 2 diabetes mellitus with diabetic chronic kidney disease; I69.398 Other sequelae of cerebral infarction; R26.81 Unsteadiness on feet; D64.9 Anemia, unspecified; R06.02 Shortness of breath; N18.4 Chronic kidney disease, stage 4 (severe); Z99.89 Dependence on other enabling machines and devices; Z91.81 History of falling | CPT/HCPCS: 83036; 96127; 99212 ==

== ENCOUNTER 2025-08-31 09:20 | Outpatient (AMB) | payer MEDICARE, MEDICAID, SELFPAY ==
--- NOTE | 2025-08-31 09:21 | HO.NEPHOV ---
Vital Signs 08/31/25 09:22 Height 4 ft 11 in Weight 161 lb BMI 32.5 BP 114/60 Blood Pressure Location Lt brachial Position Sitting Pulse 64 Pulse Source Pulse Oximeter Pulse Oximetry (%) 94 Oxygen Delivery Method Room Air Intake Visit Reasons: 3 MO FU-Conf Quality Assurance Specialist Required: No Accompanied by: Daughter Allergies Penicillins (PENICILLINS) Allergy (Unknown, Verified 08/31/25 09:25) Rash lactose Adverse Reaction (Mild, Verified 08/31/25 09:25) Unknown shellfish Allergy (Mild, Uncoded 07/27/25 11:05) Unknown Medication List - Last Reconciled 08/31/25 by Cristhian Dolan MD acetaminophen 1,000 mg PO DAILY PRN amlodipine 7.5 mg (3 x 2.5 mg) PO DAILY apixaban (Eliquis) 5 mg PO BID atorvastatin 80 mg PO BEDTIME blood sugar diagnostic (FreeStyle Lite Strips) three times per day blood sugar diagnostic (FreeStyle Lite Strips) Test three times a day or as directed. blood-glucose meter (FreeStyle Lite Meter kit) As Directed blood-glucose meter (FreeStyle Lite Meter kit) As directed to test blood sugar 3 times per day carvedilol 25 mg PO BID fluticasone propion-salmeterol 115-21 mcg/actuation inhalation furosemide 20 mg PO Q OTHER DAY insulin glargine (Basaglar KwikPen U-100 Insulin) units subcut insulin lispro (Humalog KwikPen (U-100) Insulin) See Protocol sliding scale doses subcut TIDWM isosorbide mononitrate ER 30 mg PO DAILY lancets (FreeStyle Lancets) Test 3 times per day lancets (FreeStyle Lancets) Check blood sugar three times a day as directed. nitrofurantoin monohyd/m-cryst 100 mg (Macrobid) 100 mg PO Q12H 5 days pen needle, diabetic Inject insulin 4 times per day HPI Comments Details: 73-year-old woman with a history of longstanding diabetes mellitus for more than 20 years. She was recently hospitalized and was found to have acute kidney injury. During workup she was found to have about 5 g of proteinuria. At the time of discharge serum creatinine decreased to 2.8 mg/dL. She appeared euvolemic. She was on valsartan and Jardiance which were placed on hold. Today she was accompanied by her daughter. Blood pressure is still suboptimal blood sugar is suboptimal. She has no shortness of breath at rest. She has shortness of breath on exertion. no nausea or vomiting. No urinary symptoms. 10/08/24 Seen by And cardiology Sleep apnea requiring O2 01/11/25 Still at [facility] On LAsix 40 mg PRN 04/02/25 74-year-old female presenting with persistent urinary tract infection (UTI) complicated by acute kidney injury (DANISH). After a UTI diagnosis in mid-February, initial treatment with Ciprofloxacin was altered to Nitrofurantoin due to resistance patterns and drug allergies. Despite the new antibiotic regimen, follow-up urine cultures remain positive for infection as of March 23. Complications include acute kidney injury, with lab results indicating elevated potassium levels, requiring consideration in treatment decisions. Symptomatically, the patient has noted intermittent confusion, possibly related to the ongoing UTI. Blood pressure variations, with a notably low reading compared to usual clinical figures, and significant fluctuations in blood glucose levels relate to her diabetic status, compounding the management challenge. 06/03/25: Overall doing well.Did not take lasix for few days No dyspnea Mild edema 08/31/2025 The patient is a 75-year-old female presenting with chronic kidney disease and anemia. Her kidney function remains reduced, with levels around 17 to 20%, and there has been no improvement noted. The patient is also experiencing anemia, which is being monitored closely, with potential plans for intervention if hemoglobin levels decrease further. The patient has a history of urinary tract infections, with the most recent episode treated with antibiotics in early July. She reports frequent urination with slow stream, but no current burning sensation. The patient experiences hyperglycemia, with blood sugar levels ranging from 170s to 250s, occasionally reaching 300. Her blood sugar levels tend to increase throughout the day. Cognitive impairment is noted, potentially related to a previous stroke, with symptoms including short-term memory issues and increased confusion. COUNT INCLUDES THE [facility] Medical History Risk for falls SOB (shortness of breath) Hospital discharge follow-up CKD stage 3b, GFR 30-44 ml/min Recurrent UTI Diabetes type 2, no ocular involvement Right knee pain UTI (urinary tract infection) Uncontrolled type 2 diabetes mellitus with hyperglycemia Pain of left calf Acute hyperkalemia Dysuria History of UTI Well woman exam Asthma Establishing care with new doctor, encounter for History of stroke Acute cystitis with hematuria Class 1 obesity Leg edema CVA (cerebral vascular accident) (HFpEF) heart failure with preserved ejection fraction Left leg weakness Gout of big toe Elevated troponin Bilateral wheezing Increasing shortness of breath 2+ pitting edema Cataract Hypertension Gout Surgical History History of cholecystectomy H/O: hysterectomy Social History Household Members: Children Household Members Other:: Daughter. Housing: Apartment Do you presently have visiting nurse or other home services: Yes ([employer] and [employer].) Alcohol intake: never Comment: refusing alarms Patient Tobacco Use Status: Former Tobacco user e-Cigarette/Vaping Use: Never Used Second Hand Smoke Exposure: No Advance Directives Date on File: 04/08/24 service: No Current occupational status: retired Cognitive needs: No Hearing needs: No Vision needs: No Female Reproductive History Menstrual Age of Menarche: 20 Physical Exam Vital Signs: Last Vital Signs Pulse 64 08/31/25 09:22 BP 114/60 08/31/25 09:22 Pulse Ox 94 08/31/25 09:22 Oxygen Delivery Method Room Air 08/31/25 09:22 BMI result Body Mass Index 32.5 Last Vital Signs Temp 96.5 F L 02/13/24 11:05 Pulse 72 02/13/24 11:41 Resp 16 02/13/24 11:41 BP 103/58 L 02/13/24 11:05 Pulse Ox 95 02/13/24 11:05 O2 Del Method Room Air 02/13/24 11:05 BMI result Body Mass Index 34.3 Const Nutritional Appearance: well nourished Orientation/consciousness: patient oriented x3 HEENT Head: No normal to inspection Mouth: moist mucous membranes Neck Neck: Yes supple and Yes no JVD Resp Auscultation: crackles Cardio Jugular venous distension: no JVD Palpation: no palpable S3 and no palpable S4 Heart sounds: no rubs GI Palpation (GI): Soft to palpation and nontender Percussion: No Fluid wave present General: Yes no CVA tenderness Back/Spine/Pelvis Back: no CVA tenderness Skin General skin exam: no rashes or lesions noted Neuro General: patient oriented x3 Extrem General: No clubbing Results Reviewed Nephrology Results: Hgb, (12.0-16.0) 9.8 g/dl L Today WBC, (4.8-10.8) 6.7 X10*3/uL Today Plt Count, (160-400) 184 X10*3/uL Today Sodium, (135-145) 138 mmol/L Today Potassium, (3.3-5.1) 4.4 mmol/L Today Chloride, (96-108) 110 mmol/L H Today Carbon Dioxide, (22-29) 22 mmol/L Today BUN, (9-16) 48 mg/dL H Today Creatinine, (0.5-1.4) 1.82 mg/dL H Today Calcium, (8.4-10.2) 9.1 mg/dL Today Renal US 07/13/24 Assessment & Plan Assessment & Plan (1) Acute kidney injury superimposed on chronic kidney disease: Code(s): N17.9 - Acute kidney failure, unspecified; N18.9 - Chronic kidney disease, unspecified Category: Medical (2) Chronic kidney disease (CKD) stage G4/A1, severely decreased glomerular filtration rate (GFR) between 15-29 mL/min/1.73 square meter and albuminuria creatinine ratio less than 30 mg/g: Code(s): N18.4 - Chronic kidney disease, stage 4 (severe) Category: Medical Plan 73-year-old woman with chronic kidney disease. She has proteinuria most likely due to underlying diabetic nephropathy. 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 Baseline creatinine is around 2.2 mg/dL. She sustained DANISH due to hypoperfusion. Renal function has improved and close to baseline. Anemia due to underlying chronic kidney disease. No absolute indication for Epogen yet She will follow closely. Splenic mass- follow with PCP Orders: Orders Complete Blood Count Auto Diff Today N18.4 - Chronic kidney disease, stage 4 (severe) Basic Metabolic Panel Today N18.4 - Chronic kidney disease, stage 4 (severe) Medications: Discontinued nitrofurantoin monohyd/m-cryst 100 mg (Macrobid) must administer with a meal/food Discontinued Reason: Patient no longer taking 100 mg PO Q12H 5 days 10 caps 0RF Coding Level of Care Code Est Pt Level 4 (04849) Diagnoses Acute kidney injury superimposed on chronic kidney disease N17.9; N18.9 Chronic kidney disease (CKD) stage G4/A1, severely decreased glomerular filtration rate (GFR) between 15-29 mL/min/1.73 square meter and albuminuria creatinine ratio less than 30 mg/g N18.4
[2025-08-31 09:22] VITALS: BP 114/60; PULSE 64; O2SAT 94; BMI 32.5
--- OUTSIDE RECORDS SUMMARY | 2025-08-31 10:10 | XMS_ITS | Clinical Summary ---
Author Organization [facility] Address [address] [place] [id number] Phone Care Team Providers Care Protection Engineer Name Role Phone Pcp, Unknown Primary Care [...] file Insurance MEDICARE PART A & B [id number] [place] [address] [facility]IC[facility] A [facility] A & B Member Subscriber Plan / Payer (Ef fective 2010-) Name:Loy Gaston Member ID:[id number] Relation to Subscriber:Self Name:Loy Gaston Subscriber ID:[id number] Payer ID:[id number] Group ID:Not on file Type:Medicare Address: [employer] [address] [id number] [facility] MEDICARE PART A & B [facility] Care Teams Protection Engineer Relationship Specialty Start Date End Date Pcp, Unknown PCP - General 02/09/25 Additional Source Comments The information contained in this document represents components of the legal health record. It is not the complete legal health record.[facility]
== END 2025-08-31 09:35 | disposition home or self-care (01) ==
LOC: HO.HKA 09:20
PROVIDERS: PCP Internal Medicine; Visit Provider Internal Medicine Hypertension Specialist
DX: N17.9 Acute kidney failure, unspecified (principal); N18.9 Chronic kidney disease, unspecified; N18.4 Chronic kidney disease, stage 4 (severe)
CPT/HCPCS: 99214

== ENCOUNTER 2025-08-31 09:40 | Outpatient (REF) | payer MEDICARE, MEDICAID, SELFPAY ==
[2025-08-31 13:09] LABS: MANUAL DIFF FLAG NO
[2025-08-31 13:17] LABS: Hematocrit 31.4 % (37.0-47.0); Hemoglobin 9.8 g/dl (12.0-16.0); Imm Gran Abs Auto 0.08 X10*3/uL (0.00-0.03); Imm Gran Pct Auto 1.2 % (0.0-0.4); Lymphocytes Absolute Auto 2.0 X10*3/uL (1.2-4.9); Mean Corpuscular HGB Conc 31.2 g/dl (31.0-35.0); Mean Corpuscular Hemoglobin 28.0 pg (27.0-33.0); Mean Corpuscular Volume 89.7 fL (80.0-98.0); NRBC Abs Auto 0.000 X10*3/uL (0.0-0.012); NRBC Pct Auto 0.0 /100WBC (0.0-0.2); Platelet Count 184 X10*3/uL (160-400); Red Blood Count 3.50 X10*6/uL (4.20-5.50); White Blood Count 6.7 X10*3/uL (4.8-10.8)
[2025-08-31 13:39] LABS: Anion Gap 10 (12-20); Blood Urea Nitrogen 48 mg/dL (9-16); Calcium 9.1 mg/dL (8.4-10.2); Carbon Dioxide 22 mmol/L (22-29); Chloride 110 mmol/L (96-108); Estimated Glomerular Filt Rate 27; Potassium 4.4 mmol/L (3.3-5.1); Sodium 138 mmol/L (135-145)
== END 2025-08-31 09:41 | disposition home or self-care (01) ==
LOC: HO.10HDL 09:40
PROVIDERS: Visit Provider Internal Medicine Hypertension Specialist
DX: N18.4 Chronic kidney disease, stage 4 (severe) (principal)
CPT/HCPCS: 36415; 80048; 85025; 99212

== ENCOUNTER 2025-09-14 10:58 | Outpatient (AMB) | payer MEDICARE, MEDICAID, SELFPAY ==
--- NOTE | 2025-09-14 11:03 | MHC.PC.OV ---
Vital Signs 09/14/25 11:05 Height 4 ft 11 in Weight 161 lb BMI 32.5 BP 128/78 Blood Pressure Location Lt brachial Position Sitting Pulse 72 Pulse Source Pulse Oximeter Pulse Oximetry (%) 96 Oxygen Delivery Method Room Air Intake Visit Reasons: 6 months f/up Logging Equipment Operator Required: No Accompanied by: Self / Same As Patient Allergies Penicillins (PENICILLINS) Allergy (Unknown, Verified 09/14/25 11:09) Rash lactose Adverse Reaction (Mild, Verified 09/14/25 11:09) Unknown shellfish Allergy (Mild, Uncoded 07/27/25 11:05) Unknown Medication List - Last Reviewed 09/14/25 by Latisha Kaplan MA acetaminophen 1,000 mg PO DAILY PRN amlodipine 7.5 mg (3 x 2.5 mg) PO DAILY apixaban (Eliquis) 5 mg PO BID atorvastatin 80 mg PO BEDTIME blood sugar diagnostic (FreeStyle Lite Strips) three times per day blood sugar diagnostic (FreeStyle Lite Strips) Test three times a day or as directed. blood-glucose meter (FreeStyle Lite Meter kit) As Directed blood-glucose meter (FreeStyle Lite Meter kit) As directed to test blood sugar 3 times per day carvedilol 25 mg PO BID fluticasone propion-salmeterol 115-21 mcg/actuation inhalation furosemide 20 mg PO Q OTHER DAY insulin glargine (Basaglar KwikPen U-100 Insulin) units subcut insulin lispro (Humalog KwikPen (U-100) Insulin) See Protocol sliding scale doses subcut TIDWM isosorbide mononitrate ER 30 mg PO DAILY lancets (FreeStyle Lancets) Test 3 times per day lancets (FreeStyle Lancets) Check blood sugar three times a day as directed. pen needle, diabetic Inject insulin 4 times per day Tobacco use date assessed: 09/14/25 Fall risk assessment: 1 Fall in past year Last assessed Fall Risk: 09/14/25 Dental Screening Dental Screen Date: 09/14/25 Did you have a dental visit in the last 12 months?: Yes Did you have a dental problem in the last 6 months where you did not have access to dental care?: No Was dental information given to patient?: Patient has dentist HPI 6 months f/up HPI Details History of Present Illness The patient is a 75-year-old female presenting for a follow-up appointment for management of multiple chronic medical conditions and a new complaint of right elbow pain. Diabetes mellitus: - The patient's hemoglobin A1c was 7.8% in July. - She is prescribed insulin glargine 18 units, but her daughter has been administering 12 units of the long-acting insulin. - Her blood sugars run in the 150s-160s in the morning and have been on the higher side, sometimes reaching 250-255. - She also takes insulin lispro on a sliding scale three times a day and is using supplies from a previous senior living stay. Chronic Kidney Disease, Stage 4: - The patient has Stage G4 chronic kidney disease and is followed by nephrology. - Recent lab work showed improvement in her kidney function, with creatinine decreasing from 2.35 in June to 1.82 and GFR increasing from 20 to 27. Congestive heart failure: - The patient has a history of congestive heart failure and is followed by cardiology at [facility]. - For fluid management, she takes furosemide; her daughter administers it every other day. - She was previously instructed to take furosemide daily in July due to crackles in her lungs. Anemia: - Her hemoglobin was recently 9.8, which is considered her baseline. Hypertension: - Her blood pressure is usually well-controlled, and her last reading in July was 114/60 mmHg. Lateral Epicondylitis: - The patient developed right elbow pain approximately one week ago, possibly from pulling the arm while getting out of bed. - The pain is suspected to be from tennis elbow, potentially related to using a bar for assistance with transfers. Medical History: - Congestive heart failure - Chronic kidney disease, Stage G4 - Recurrent UTIs - Hyperlipidemia - Diabetes mellitus - Obesity - Asthma - Osteopenia - Medial calculi - Anemia - Hypertension Medications: - Amlodipine, prescribed by cardiology - Apixaban, prescribed by cardiology - Atorvastatin, prescribed by cardiology - Carvedilol - Furosemide, taken every other day - Isosorbide, prescribed by cardiology - Insulin glargine 12 units in the morning (prescribed 18 units) - Insulin lispro (Humalog) per sliding scale three times a day Social History: - Functional Status: The patient has difficulty with walking and primarily uses a walker and wheelchair for ambulation. - Caregiver: Her daughter is her primary conveyor attendant. Diagnostic Results: - Labs (from the of the current month): - Hemoglobin: 9.8 g/dL, stable at baseline - Creatinine: 1.82 mg/dL (improved from 2.35 in June) - GFR: 27 mL/min/1.73 m? (improved from 20 in June) - Labs (from July): - Hemoglobin A1c: 7.8% Problem List - Congestive heart failure - Chronic kidney disease, Stage 4 - Recurrent urinary tract infections - Hyperlipidemia - Diabetes mellitus - Obesity - Asthma - Osteopenia - Anemia - Hypertension - Gait abnormality - Right lateral epicondylitis (Tennis elbow) - Preventative care: Influenza vaccination Plan - Diabetes Mellitus: The patient's daughter was advised she can increase the long-acting insulin by 2 units if blood sugars run high, with a target range between 140 and 250 mg/dL. - An order for a repeat hemoglobin A1c will be placed for her to complete in October. - Regarding the short-acting insulin (lispro), the pharmacy will be instructed to contact the office for a refill request when needed. - Right Lateral Epicondylitis: Recommended conservative management with a tennis elbow splint and warm olive oil massage. - A cortisone injection was offered as an alternative treatment but was deferred by the patient. - Congestive Heart Failure/Edema: Advised the daughter that she can give extra doses of furosemide for a couple of days if she notices increased swelling. - Health Maintenance: Advised the patient to receive the high-dose senior influenza vaccine from a pharmacy. - Consults/Coordination of Care: The patient has upcoming appointments with urology, nephrology, and pulmonary specialists. - Follow-up: The patient will follow up in the office in four months. 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 FIRER: Alert awake oriented x3 motor intact Skin: Normal turgor, some swelling noted in extremities [facility] Medical History Risk for falls SOB (shortness of breath) Hospital discharge follow-up CKD stage 3b, GFR 30-44 ml/min Recurrent UTI Diabetes type 2, no ocular involvement Right knee pain UTI (urinary tract infection) Uncontrolled type 2 diabetes mellitus with hyperglycemia Pain of left calf Acute hyperkalemia Dysuria History of UTI Well woman exam Asthma Establishing care with new doctor, encounter for History of stroke Acute cystitis with hematuria Class 1 obesity Leg edema CVA (cerebral vascular accident) (HFpEF) heart failure with preserved ejection fraction Left leg weakness Gout of big toe Elevated troponin Bilateral wheezing Increasing shortness of breath 2+ pitting edema Cataract Hypertension Gout Surgical History History of cholecystectomy H/O: hysterectomy Social History Household Members: Children Household Members Other:: Daughter. Housing: Apartment Do you presently have visiting nurse or other home services: Yes ([facility] and ACCELERATOR SYSTEMS DIRECTOR.) Alcohol intake: never Comment: refusing alarms Patient Tobacco Use Status: Former Tobacco user e-Cigarette/Vaping Use: Never Used Second Hand Smoke Exposure: No Advance Directives Date on File: 04/08/24 service: No Current occupational status: retired Cognitive needs: No Hearing needs: No Vision needs: No Female Reproductive History Menstrual Age of Menarche: 20 Questionnaire Thrive Questionnaire Date Thrive assessed: 02/19/25 I am a: Parent/Caregiver What is your living situation today?: I have a steady place to live Within the past 12 months, did the food you bought not last and you didn't have the money to get more?: I choose not to answer this question Within the past 12 months, did you worry whether your food would run out before you got money to buy more?: I choose not to answer this question Do you have trouble paying for medicines?: No Do you have trouble getting transportation to medical appointments?: No Do you have trouble paying your heating and electricity bill?: No Do you have trouble taking care of your child, family member or friend?: No Do you have trouble with day-to-day activities such as bathing, preparing meals, shopping, managing finances, etc.?: Yes Are you currently unemployed and looking for a job?: I choose not to answer this question Are you interested in more education?: I choose not to answer this question Please select the resources that you would like help with: Food Currently or been in a relationship where the following occur: I choose not to answer THRIVE Score: 0 LORA-7 AMB Questionnaire LORA-7 Date LORA - 7 assessed: 02/19/25 Source: Developed by Drs. Fermin Bynum, Evelyn Sanchez, Gabo Alamo and colleagues, with an educational rubina from [employer]. Physical exam (Primary Care) Vital Signs: Last Vital Signs Pulse 72 09/14/25 11:05 BP 128/78 09/14/25 11:05 Pulse Ox 96 09/14/25 11:05 Oxygen Delivery Method Room Air 09/14/25 11:05 BMI result Body Mass Index 32.5 Tobacco/Smoking Status: Tobacco use Status Tobacco use date assessed 09/14/25 09/14/25 11:09 Patient Tobacco Use Status Former Tobacco user 09/14/25 11:04 e-Cigarette/Vaping Use Never Used 09/14/25 11:04 Thrive Assessment: Date of Thrive Assessment Date Thrive assessed 02/19/25 09/14/25 11:04 Currently or been in a relationship where the following occur: I choose not to answer Coding Level of Care Code Est Pt Level 4 (62377) Complex EM visit Add On G2211 Diagnoses Right tennis elbow M77.11 Other congestive heart failure I50.9 Heart failure type: other Diabetes mellitus with multiple complications E11.8 Risk for falls Z91.81 Chronic kidney disease (CKD) stage G4/A1, severely decreased glomerular filtration rate (GFR) between 15-29 mL/min/1.73 square meter and albuminuria creatinine ratio less than 30 mg/g N18.4 Dependent on walker for ambulation Z99.89 Anemia in other chronic diseases classified elsewhere D63.8 Anemia type: other cause Other causes of anemia: chronic disease, other Moderate persistent asthma without complication J45.40 Asthma complication type: uncomplicated Leg edema R60.0 Time Spent (min) 40 Comment Assessment & Plan Assessment & Plan (1) Right tennis elbow: Code(s): M77.11 - Lateral epicondylitis, right elbow Category: Medical (2) Congestive heart failure: Code(s): I50.9 - Heart failure, unspecified Category: Medical Qualifiers: Heart failure type: other Qualified Code(s): I50.9 - Heart failure, unspecified (3) Diabetes mellitus with multiple complications: Code(s): E11.8 - Type 2 diabetes mellitus with unspecified complications Category: Medical (4) Risk for falls: Code(s): Z91.81 - History of falling Category: Medical (5) Chronic kidney disease (CKD) stage G4/A1, severely decreased glomerular filtration rate (GFR) between 15-29 mL/min/1.73 square meter and albuminuria creatinine ratio less than 30 mg/g: Code(s): N18.4 - Chronic kidney disease, stage 4 (severe) Category: Medical (6) Dependent on walker for ambulation: Code(s): Z99.89 - Dependence on other enabling machines and devices Category: Medical (7) Anemia: Code(s): D64.9 - Anemia, unspecified Category: Medical Qualifiers: Anemia type: other cause Other causes of anemia: chronic disease, other Qualified Code(s): D63.8 - Anemia in other chronic diseases classified elsewhere (8) Asthma, moderate persistent: Code(s): J45.40 - Moderate persistent asthma, uncomplicated Category: Medical Qualifiers: Asthma complication type: uncomplicated Qualified Code(s): J45.40 - Moderate persistent asthma, uncomplicated (9) Leg edema: Code(s): R60.0 - Localized edema Category: Medical Plan Diabetes mellitus: - The patient's hemoglobin A1c was 7.8% in July. - She is prescribed insulin glargine 18 units, but her daughter has been administering 12 units of the long-acting insulin. - Her blood sugars run in the 150s-160s in the morning and have been on the higher side, sometimes reaching 250-255. - She also takes insulin lispro on a sliding scale three times a day and is using supplies from a previous senior living stay. Chronic Kidney Disease, Stage 4: - The patient has Stage G4 chronic kidney disease and is followed by nephrology. - Recent lab work showed improvement in her kidney function, with creatinine decreasing from 2.35 in June to 1.82 and GFR increasing from 20 to 27. Congestive heart failure: - The patient has a history of congestive heart failure and is followed by cardiology at [facility]. - For fluid management, she takes furosemide; her daughter administers it every other day. - She was previously instructed to take furosemide daily in July due to crackles in her lungs. Anemia: - Her hemoglobin was recently 9.8, which is considered her baseline. Hypertension: - Her blood pressure is usually well-controlled, and her last reading in July was 114/60 mmHg. Lateral Epicondylitis: - The patient developed right elbow pain approximately one week ago, possibly from pulling the arm while getting out of bed. - The pain is suspected to be from tennis elbow, potentially related to using a bar for assistance with transfers. Medical History: - Congestive heart failure - Chronic kidney disease, Stage G4 - Recurrent UTIs - Hyperlipidemia - Diabetes mellitus - Obesity - Asthma - Osteopenia - Medial calculi - Anemia - Hypertension Medications: - Amlodipine, prescribed by cardiology - Apixaban, prescribed by cardiology - Atorvastatin, prescribed by cardiology - Carvedilol - Furosemide, taken every other day - Isosorbide, prescribed by cardiology - Insulin glargine 12 units in the morning (prescribed 18 units) - Insulin lispro (Humalog) per sliding scale three times a day Social History: - Functional Status: The patient has difficulty with walking and primarily uses a walker and wheelchair for ambulation. - Caregiver: Her daughter is her primary conveyor attendant. Diagnostic Results: - Labs (from the of the current month): - Hemoglobin: 9.8 g/dL, stable at baseline - Creatinine: 1.82 mg/dL (improved from 2.35 in June) - GFR: 27 mL/min/1.73 m? (improved from 20 in June) - Labs (from July): - Hemoglobin A1c: 7.8% Problem List - Congestive heart failure - Chronic kidney disease, Stage 4 - Recurrent urinary tract infections - Hyperlipidemia - Diabetes mellitus - Obesity - Asthma - Osteopenia - Anemia - Hypertension - Gait abnormality - Right lateral epicondylitis (Tennis elbow) - Preventative care: Influenza vaccination Plan - Diabetes Mellitus: The patient's daughter was advised she can increase the long-acting insulin by 2 units if blood sugars run high, with a target range between 140 and 250 mg/dL. - An order for a repeat hemoglobin A1c will be placed for her to complete in October. - Regarding the short-acting insulin (lispro), the pharmacy will be instructed to contact the office for a refill request when needed. - Right Lateral Epicondylitis: Recommended conservative management with a tennis elbow splint and warm olive oil massage. - A cortisone injection was offered as an alternative treatment but was deferred by the patient. - Congestive Heart Failure/Edema: Advised the daughter that she can give extra doses of furosemide for a couple of days if she notices increased swelling. - Health Maintenance: Advised the patient to receive the high-dose senior influenza vaccine from a pharmacy. - Consults/Coordination of Care: The patient has upcoming appointments with urology, nephrology, and pulmonary specialists. - Follow-up: The patient will follow up in the office in four months.
[2025-09-14 11:05] VITALS: BP 128/78; PULSE 72; O2SAT 96; BMI 32.5
== END 2025-09-14 11:24 | disposition home or self-care (01) ==
LOC: HO.HMCC 10:59
PROVIDERS: PCP Internal Medicine; Visit Provider Internal Medicine
DX: M77.11 Lateral epicondylitis, right elbow (principal); I50.9 Heart failure, unspecified; E11.8 Type 2 diabetes mellitus with unspecified complications; Z91.81 History of falling; N18.4 Chronic kidney disease, stage 4 (severe); Z99.89 Dependence on other enabling machines and devices; D63.8 Anemia in other chronic diseases classified elsewhere; J45.40 Moderate persistent asthma, uncomplicated; R60.0 Localized edema

== ENCOUNTER → 2025-09-14 10:58 | Outpatient (BNVA) | payer MEDICARE, MEDICAID, SELFPAY | PROVIDERS: PCP Internal Medicine; Visit Provider Internal Medicine | DX: M77.11 Lateral epicondylitis, right elbow (principal); I50.9 Heart failure, unspecified; E11.8 Type 2 diabetes mellitus with unspecified complications; N18.4 Chronic kidney disease, stage 4 (severe); D63.8 Anemia in other chronic diseases classified elsewhere; J45.40 Moderate persistent asthma, uncomplicated; R60.0 Localized edema; Z91.81 History of falling; Z99.89 Dependence on other enabling machines and devices | CPT/HCPCS: 99212 ==

== ENCOUNTER 2025-09-30 13:20 | Outpatient (AMB) | payer MEDICARE, MEDICAID, SELFPAY ==
--- NOTE | 2025-09-30 13:27 | AM.OFFWIN_ITS ---
Intake Vital Signs 09/30/25 13:29 Height 4 ft 11 in Weight 161 lb BMI 32.5 BP 143/67 H Blood Pressure Location Rt brachial Position Sitting Respiration 16 Pulse 66 Pulse Source Pulse Oximeter Temp 97.9 F Temp Source Oral Pulse Oximetry (%) 96 Oxygen Delivery Method Room Air Intake Visit Reasons: EP - Pt Fell/ Confusion Intake Note: EP fell down from walker on her knees on the way to washroom this Saturday. She complains of pain on knees, confusion and forgetfulness as well. Patient Tobacco Use Status: Former Tobacco user Allergies Penicillins (PENICILLINS) Allergy (Unknown, Verified 09/30/25 13:39) Rash lactose Adverse Reaction (Mild, Verified 09/30/25 13:39) Unknown shellfish Allergy (Mild, Uncoded 09/30/25 13:39) Unknown Do you need a note to return to daycare/school/sports/work: No HPI HPI Comments History of Present Illness Details History of Present Illness The patient is a 75-year-old female with a past medical history of CVA on Eliquis, type 2 diabetes mellitus on insulin, CKD Stage 4, recurrent UTIs, HFpEF presenting with her daughter for right knee pain following a fall and urinary urgency. - The patient reported a fall three days ago inside her apartment while using her walker. - There was no loss of consciousness or striking of the head during the event. - The fall involved landing on both knee s, with significant pain reported in the right knee. - Observations included redness and swel ling noted predominantly in the right knee. - The fall was unwitnessed; however, the daughter found the patient on her knees afterward. - Patient is able to bear weight but tro uble ambulating. Patient has residual left sided weakness s/p CVA - Patient daughter also reports that her confusion has been getting worse over the last few weeks from her usual baseline - Daughter states that it may be residua l effects from her stroke, however patient has also been complaining of difficulty urinating the last few days and would like to get her urine checked - She is alert and able to answer questi ons, however daughter states she has seemed increasingly forgetful - She has a history of urinary retention , recurrent UTIs, and kidney stones - She has previously required IV antibio tics for previous UTI's - Patient currently denies any dysuria o r burning with urination - She reports urinary frequency and urin roula urgency - Denies any gross hematuria - She has been following with urology an d nephrology - Denies any fevers Review of Systems Constitutional: Negative for fevers HENT: Negative for head injury Gastrointestinal: Negative for nausea or vomiting Genitourinary: Reports difficulty urinating urinary frequency, urinary urgency. Negative for dysuria, flank pain, hematuria Musculoskeletal: Reports right knee pain and swelling. Reports difficulty ambulating. Skin: Negative for open wounds Neurological: Reports increased confusion from baseline Physical Exam General Appearance: Normal appearance, well developed. No acute distress. Patient presents in wheelchair Head: Normocephalic, atraumatic Pulmonary: No respiratory distress. Speaking in full sentences Musculoskeletal: Patient has difficulty bearing weight on affected leg. Swelling noted overlying the right knee. No ecchymosis, erythema, or open wounds noted. Tenderness to palpation overlying the patella and medial joint line. No TTP overlying the quadriceps or patellar tendon. Negative anterior drawer, posterior drawer. Varus and valgus stress test reproduced pain. Mental Status: Patient alert and oriented to person and place. Clear speech and able to answer questions regarding injury Psychiatric: Normal mood. Normal affect. [facility] Medical History Risk for falls SOB (shortness of breath) Hospital discharge follow-up CKD stage 3b, GFR 30-44 ml/min Recurrent UTI Diabetes type 2, no ocular involvement Right knee pain UTI (urinary tract infection) Uncontrolled type 2 diabetes mellitus with hyperglycemia Pain of left calf Acute hyperkalemia Dysuria History of UTI Well woman exam Asthma Establishing care with new doctor, encounter for History of stroke Acute cystitis with hematuria Class 1 obesity Leg edema CVA (cerebral vascular accident) (HFpEF) heart failure with preserved ejection fraction Left leg weakness Gout of big toe Elevated troponin Bilateral wheezing Increasing shortness of breath 2+ pitting edema Cataract Hypertension Gout Surgical History History of cholecystectomy H/O: hysterectomy Social History Household Members: Children Household Members Other:: Daughter. Housing: Apartment Do you presently have visiting nurse or other home services: Yes ([employer] and [employer].) Alcohol intake: never Comment: refusing alarms Patient Tobacco Use Status: Former Tobacco user e-Cigarette/Vaping Use: Never Used Second Hand Smoke Exposure: No Advance Directives Date on File: 04/08/24 service: No Current occupational status: retired Cognitive needs: No Hearing needs: No Vision needs: No Female Reproductive History Menstrual Age of Menarche: 20 Physical Exam Vital Signs: Last Vital Signs Temp 97.9 F 09/30/25 13:29 Pulse 66 09/30/25 13:29 Resp 16 09/30/25 13:29 BP 143/67 H 09/30/25 13:29 Pulse Ox 96 09/30/25 13:29 Oxygen Delivery Method Room Air 09/30/25 13:29 BMI result Body Mass Index 32.5 Results AMB Urinalysis, Automated UA Leukoctes 70 Mike/uL Last Edit by Mikayla Marcos MA on 09/30/25 15:20 1+ Mikayla Marcos 09/30/25 15:20 UA Nitrite Negative Last Edit by Mikayla Marcos MA on 09/30/25 15:20 UA Urobilinogen 0 mg/dL Last Edit by Mikayla Marcos MA on 09/30/25 15:20 UA Protein 300 mg/dL Last Edit by Mikayla Marcos MA on 09/30/25 15:20 3+ Mikayla Marcos 09/30/25 15:20 UA pH 6.0 Last Edit by Mikayla Marcos MA on 09/30/25 15:20 UA Blood 200 [place]/uL Last Edit by Mikayla Marcos MA on 09/30/25 15:20 3+ Mikayla Marcos 09/30/25 15:20 UA Specific [place] 1.020 Last Edit by Mikayla Marcos MA on 09/30/25 15:2 0 UA Ketone Negative Last Edit by Mikayla Marcos MA on 09/30/25 15:20 UA Bilirubin 0 mg/dL Last Edit by Mikayla Marcos MA on 09/30/25 15:20 UA Glucose 250 mg/dL Last Edit by Mikayla Marcos MA on 09/30/25 15:20 1+ Mikayla Marcos 09/30/25 15:20 Assessment & Plan Assessment & Plan (1) Urinary urgency: Code(s): R39.15 - Urgency of urination (2) Right knee injury: Code(s): S89.91XA - Unspecified injury of right lower leg, initial encounter Qualifiers: Encounter type: initial encounter Qualified Code(s): S89.91XA - Unspecified injury of right lower leg, initial encounter (3) Fall: Code(s): W19.XXXA - Unspecified fall, initial encounter Qualifiers: Encounter type: initial encounter Qualified Code(s): W19.XXXA - Unspecified fall, initial encounter Plan Acute right knee injury - Plan to obtain a right knee x-ray; will call patients daughter with results - Knee was wrapped with REESE wrap in the interim. - Instructed the application of ice intermittently every 1-2 hours for 10-15 minutes and tylenol as needed for pain relief. Urinary urgency - Patient's daughter requested to check patients urine due to potential change in mentation and trouble urinating. - Per chart review, patient has a history of confusion secondary to CVA. She also has a history of recurrent UTIs and urinary urgency. She follows with urology - UA obtained in office shows 1+ leuks and negative nitrites. Protein, blood, and glucose also noted. - Discussed starting empiric antibiotics or waiting for urine cultures prior to starting treatment with patient's daughter - After shared decision making and due to patients history of recurrent UTIs including hospitalization for IV antibiotics, patients daughter requested to start antibiotics - After reviewing prior urine cultures, will start patient on cefuroxime 250 mg BID for 7 days. Recent lab work from 08/31/2025 show a CrCL of 32. Patient has a documented allergy to penicillins, however has tolerated cephalosporins in the past - Urine cultures were sent. Advised patient and patient's daughter that if urine cultures are negative, we will stop antibiotics. - Advised monitoring of symptoms; recommended prompt medical evaluation if worsening change in mentation, fevers, flank pain, or worsening symptoms. Patient was informed and verbally consented to the use of an ambient scribe for clinic note documentation during the visit. Orders: Orders AMB Urinalysis Automated Today R39.15 - Urgency of urination XR knee RT 4V Today S89.91XA - Unspecified injury of right lower leg, initial encounter Urine Culture Today R39.15 - Urgency of urination Medications: New cefuroxime axetil 250 mg PO Q12H 14 tabs 0RF 7 days Coding Level of Care Code Est Pt Level 4 (16144) Diagnoses Urinary urgency R39.15 Injury of right knee, initial encounter S89.91XA Encounter type: initial encounter Fall, initial encounter W19.XXXA Encounter type: initial encounter
[2025-09-30 13:29] VITALS: BP 143/67; PULSE 66; RESP 16; TEMP 36.6; O2SAT 96; BMI 32.5
== END 2025-09-30 15:41 | disposition home or self-care (01) ==
LOC: HO.HMCWIS 13:20
PROVIDERS: PCP Internal Medicine; Visit Provider Family Medicine
DX: R39.15 Urgency of urination (principal); S89.91XA Unspecified injury of right lower leg, initial encounter; W19.XXXA Unspecified fall, initial encounter

== ENCOUNTER 2025-09-30 13:20 | Outpatient (REF) | payer MEDICARE, MEDICAID, SELFPAY ==
--- NOTE | ~2025-09-30 | XR_ITS ---
EXAMINATION: XR KNEE, RIGHT CLINICAL INFORMATION: S89.91XA - Unspecified injury of right lower leg, initial encounter COMPARISON: None available. TECHNIQUE: Four views of the right knee. FINDINGS: There is mild narrowing of the lateral joint space. Small tricompartmental marginal osteophytes are present. There is a joint effusion. There is osteopenia. XR/XR knee RT 4V IMPRESSION: Moderate osteoarthritis and joint effusion. Osteopenia. Electronically signed by: Lino Theodore MD 09/30/2025 04:33 PM EST
--- OUTSIDE RECORDS SUMMARY | 2025-09-30 21:20 | XMS_ITS | Clinical Summary ---
Author Organization [facility] Address [address] [place] [address] Phone Care Team Providers Care Medical Biller/Coder Name Role Phone Pcp, Unknown Primary Care [...] file Insurance MEDICARE PART A & B [id number] [place] [address] MEDICARE PART A & B [facility]IC[facility] B Member Subscriber Plan / Payer (Ef fective 2010-) Name:Loy Gaston Member ID:[id number] Relation to Subscriber:Self Name:Loy Gaston Subscriber ID:[id number] Payer ID:[id number] Group ID:Not on file Type:Medicare Address: [place] [address] [address] [facility] MEDICARE PART A & B [facility] [employer] Care Teams Medical Biller/Coder Relationship Specialty Start Date End Date Pcp, Unknown PCP - General 02/09/25 Additional Source Comments The information contained in this document represents components of the legal health record. It is not the complete legal health record.[facility]
== END 2025-09-30 13:21 | disposition home or self-care (01) ==
LOC: HO.LAB 13:20
PROVIDERS: PCP Internal Medicine; Visit Provider Family Medicine
DX: S89.91XA Unspecified injury of right lower leg, initial encounter (principal); R39.15 Urgency of urination; W18.39XA Other fall on same level, initial encounter; Z79.01 Long term (current) use of anticoagulants
CPT/HCPCS: 73564; 87086; 87088; 87186; 99212

== ENCOUNTER → 2025-09-30 16:08 | Outpatient (BNV) | payer MEDICARE, MEDICAID, SELFPAY | PROVIDERS: PCP Internal Medicine; Visit Provider Radiology Diagnostic Radiology | DX: S89.91XA Unspecified injury of right lower leg, initial encounter (principal); M17.11 Unilateral primary osteoarthritis, right knee; M25.461 Effusion, right knee; M85.88 Other specified disorders of bone density and structure, other site | CPT/HCPCS: 73564 ==

== ENCOUNTER 2025-10-09 14:17 | Emergency (ER) | payer MEDICARE, MEDICAID, SELFPAY ==
--- NOTE | ~2025-10-09 | US_ITS ---
CLINICAL HISTORY: KUB ultrasound, bladder retention and hydro ? US kidneys with transabdominal imaging of the urinary bladder. Comparison: 07/13/2024 Findings: Right kidney normal size and reveals mild increased cortical echogenicity, suggesting nonspecific medical renal disease, 9.2 cm length. No hydronephrosis. Normal color flow. Left kidney normal size and reveals mild increased cortical echogenicity, suggesting nonspecific medical renal disease, 10.1 cm length. No hydronephrosis. Normal color flow. Punctate nonshadowing echogenic foci in the interpolar region could represent small nonobstructing calculi. Urinary bladder appears free of gross filling defects and wall thickening. Bladder volume not measured. Right-sided ureteral jet documented by Doppler interrogation. No left ureteral jet is documented. Impression: 1. Possible small nonobstructing left renal calculi. No hydronephrosis. 2. Right-sided ureteral jet was documented by Doppler interrogation. Left ureteral jet was not documented by Doppler interrogation. This document has been electronically signed by: Wilbert Werner MD on 10/09/2025 15:42:06
--- NOTE | ~2025-10-09 | CT_ITS ---
CLINICAL HISTORY: lower abd pain CT abdomen and pelvis without contrast Comparison: None provided Findings: Bibasilar dependent subsegmental atelectasis. The gallbladder is not identified. The liver and spleen, adrenals and pancreas is within normal limits. Mild right renal atrophy. Right interpolar region cortical 0.1 cm nonobstructing nephrolith. Right renal upper pole exophytic low-attenuation lesion, 1.5 cm; renal cyst Right hydroureter. No bowel obstruction, pneumoperitoneum, or pneumatosis. Calcified coronary atherosclerotic disease. Prior hysterectomy. The appendix not grossly identified. The bladder is decompressed with Ponce catheter in lumen. Mild osteopenia. Chronic Wedge compression fracture superior endplate of the L1 vertebral body with less than 30% vertebral body height loss, sagittal image number 69 of 131 series 8. No paraspinal edema identified. IMPRESSION: 1. Chronic wedge compression fracture of L1 superior endplate with less than 30% height loss. 2. Right renal 0.1 cm nonobstructing nephrolith. 3. Status post prior cholecystectomy and hysterectomy. 4. No acute intraabdominal or pelvic findings. This document has been electronically signed by: Dwayne Nguyễn MD on 10/09/2025 21:41:23
--- NOTE | 2025-10-09 14:38 | ED.FEMALEGU ---
HPI - Female Genitourinary General Chief complaint: Urogenital-Female Stated complaint: urinary issues Time Seen by Provider: 10/09/25 18:43 Related Data Home Medications ?Medication ?Instructions ?Recorded ?Confirmed acetaminophen 500 mg tablet 1,000 mg PO DAILY PRN Pain 02/06/24 09/14/25 insulin lispro 100 unit/mL See Protocol subcut TIDWM 03/01/24 09/14/25 subcutaneous pen (Humalog KwikPen (U-100) Insulin) insulin glargine 100 unit/mL (3 unit subcut 06/22/25 09/14/25 mL) subcutaneous pen (Basaglar KwikPen U-100 Insulin) Previous Rx's ?Medication ?Instructions ?Recorded lancets 28 gauge (FreeStyle #300 ea 02/06/24 Lancets) blood-glucose meter (FreeStyle #1 ea 02/07/24 Lite Meter kit) blood-glucose meter (FreeStyle #1 ea 02/13/24 Lite Meter kit) blood sugar diagnostic (FreeStyle #100 ea 03/13/24 Lite Strips) blood sugar diagnostic (FreeStyle #200 strips 03/18/25 Lite Strips) lancets 28 gauge (FreeStyle #200 ea 03/18/25 Lancets) isosorbide mononitrate 30 mg 30 mg PO DAILY #90 tabs 04/07/25 tablet,extended release 24 hr amlodipine 2.5 mg tablet 7.5 mg (3 x 2.5 mg) PO DAILY #270 04/16/25 tabs pen needle, diabetic 32 gauge x #100 ea 05/21/25 furosemide 20 mg tablet 20 mg PO Q OTHER DAY edema #30 tabs 06/03/25 carvedilol 25 mg tablet 25 mg PO BID #180 tabs 06/14/25 apixaban 5 mg tablet (Eliquis) 5 mg PO BID #60 tabs 08/13/25 atorvastatin 80 mg tablet 80 mg PO BEDTIME #90 tabs 09/27/25 cefuroxime axetil 250 mg tablet 250 mg PO Q12H 7 days #14 tabs 09/30/25 Allergies Allergy/AdvReac Type Severity Reaction Status Date / Time Penicillins (PENICILLINS) Allergy Unknown Rash Verified 10/09/25 14:44 lactose AdvReac Mild Unknown Verified 10/09/25 14:44 shellfish Allergy Mild Unknown Uncoded 09/30/25 13:[facility] Medical History Medical History Risk for falls SOB (shortness of breath) Hospital discharge follow-up CKD stage 3b, GFR 30-44 ml/min Recurrent UTI Diabetes type 2, no ocular involvement Right knee pain UTI (urinary tract infection) Uncontrolled type 2 diabetes mellitus with hyperglycemia Pain of left calf Acute hyperkalemia Dysuria History of UTI Well woman exam Asthma Establishing care with new doctor, encounter for History of stroke Acute cystitis with hematuria Class 1 obesity Leg edema CVA (cerebral vascular accident) (HFpEF) heart failure with preserved ejection fraction Left leg weakness Gout of big toe Elevated troponin Bilateral wheezing Increasing shortness of breath 2+ pitting edema Cataract Hypertension Gout Surgical History History of cholecystectomy H/O: hysterectomy Social History Social History Household Members: Children Household Members Other:: Daughter. Housing: Apartment Do you presently have visiting nurse or other home services: Yes ([facility]NA and [employer].) Alcohol intake: never Comment: refusing alarms Patient Tobacco Use Status: Former Tobacco user Smoked in Last 30 Days: No e-Cigarette/Vaping Use: Never Used Second Hand Smoke Exposure: No Use of substances other than those prescribed or required for medical reasons: No Advance Directives: No Advance Directives Information Provided: No Advance Directives Date on File: 04/08/24 Do you have a plan to hurt others: No Plan Patient : No service: No Current occupational status: retired Cognitive needs: No Hearing needs: No Vision needs: No Physical Exam Vital Signs: Vital Signs: Last Vital Signs Temp 97.9 F 10/09/25 21:45 Pulse 63 10/09/25 21:45 Resp 14 10/09/25 21:45 BP 117/52 L 10/09/25 21:45 Pulse Ox 96 10/09/25 21:45 O2 Del Method Room Air 10/09/25 21:45 BMI result Body Mass Index 33.2 Course Course Course Narrative: This is a RME preformed in triage by Zaynab Dillard PA-C. Date: 10/09/2025, time 238p . Patient presents with urinary concerns. Here with Jerri, her daughter. Hx of prolapsed colon, urinary urgency. last night it started. c/o low back pain and dysuria. Currently being treated for UTI. urine cx grew E coli. cx below. Given : cefuroxime axetil 250 mg PO Q12H 14 tabs 0RF 7 days HX: - Followed by urology Dr. Velez, last visit on 04/02/25 The patient is a 74-year-old female presenting with recurrent urinary tract infections and incomplete bladder emptying. - She has a history of recurrent UTIs, with a recent hospitalization due to a complicated and resistant infection requiring IV antibiotics. 09/30/25: Ampicillin 4 S Cefazolin (Urine) <=1 S Cefepime <=0.12 S Ceftriaxone <=0.25 S Ciprofloxacin >=4 R Gentamicin <=1 S Nitrofurantoin <=16 S Trimethoprim/Sulfamethoxazole <=20 S Work UP: U/A, basic labs, KUB ultrasound Will defer full ROS and PE to treating provider. Patient will continued to be monitored in the interim. Medications Administered Discontinued Medications Generic Name Dose Route Start Last Admin Trade Name Freq PRN Reason Stop Dose Admin Sodium Chloride 1,000 mls @ 999 mls/hr 10/09/25 20:45 10/09/25 21:08 Ns IV 10/09/25 21:45 999 mls/hr .Q1H1M BURTON Administration Medical Decision Making Lab Data 10/09/25 14:51 10/09/25 14:51 Labs: Lab Results 10/09/25 10/09/25 Range/Units 14:51 20:42 WBC 10.1 (4.8-10.8) X10*3/uL RBC 3.30 L (4.20-5.50) X10*6/uL Hgb 9.5 L (12.0-16.0) g/dl Hct 29.4 L (37.0-47.0) % MCV 89.1 (80.0-98.0) fL MCH 28.8 (27.0-33.0) pg MCHC 32.3 (31.0-35.0) g/dl RDW 14.5 (11.0-16.0) % Plt Count 184 (160-400) X10*3/uL MPV 10.3 (9.4-12.3) fL Immature Gran % (Auto) 1.2 H (0.0-0.4) % Neut % (Auto) 46.6 (45-73) % Lymph % (Auto) 31.1 (20-40) % [place] % (Auto) 10.7 (2-11) % Eos % (Auto) 10.2 H (0-4) % Baso % (Auto) 0.2 (0-2) % Lymph # (Auto) 3.1 (1.2-4.9) X10*3/uL [place] # (Auto) 1.1 (0.1-1.2) X10*3/uL Eos # (Auto) 1.0 H (0.0-0.4) X10*3/uL Baso # (Auto) 0.0 (0.0-0.2) X10*3/uL Abs Immat Gran (auto) 0.12 H (0.00-0.03) X10*3/uL Absolute Neuts (auto) 4.7 (2.0-8.3) x10*3/uL Absolute Nucleated RBC 0.000 (0.0-0.012) X10*3/uL Nucleated RBC % (auto) 0.0 (0.0-0.2) /100WBC Sodium 137 (135-145) mmol/L Potassium 5.2 H (3.3-5.1) mmol/L Chloride 110 H (96-108) mmol/L Carbon Dioxide 21 L (22-29) mmol/L Anion Gap 11 L (12-20) BUN 49 H (9-16) mg/dL Creatinine 2.02 H (0.5-1.4) mg/dL Estim Creat Clear Calc 21.8 Estimated GFR 24 Random Glucose 106 (60-115) mg/dL Calcium 9.2 (8.4-10.2) mg/dL Total Bilirubin 0.3 (0.0-1.0) mg/dL AST 21 (5-31) U/L ALT 25 (0-31) U/L Alkaline Phosphatase 111 (39-117) U/L Total Protein 6.5 (6.5-8.0) g/dL Albumin 3.8 (3.5-5.0) g/dL Urine Color Yellow Urine Appearance Clear Urine pH 5.5 (5.0-9.0) Ur Specific [place] <= 1.005 (1.005-1.025) Urine Protein 100 (2+) H (Neg-Trace) mg/dL Urine Glucose (UA) Negative (Negative) mg/dL Urine Ketones Negative (Negative) mg/dL Urine Blood Moderate (2+) H (Negative) Urine Nitrite Negative (Negative) Ur Leukocyte Esterase Negative (Negative) Urine RBC 3-5 H (0-2) /HPF Urine WBC 0-5 (0-5) /HPF Ur Squamous Epith Cells 0-2 (0-2) /HPF Urine Bacteria None Seen (None Seen) Hyaline Casts 0-2 (0-2) /LPF Discharge Plan Discharge Clinical Impression: Acute urinary retention Patient Disposition: Home, Self-Care Instructions: [place] Catheter Placement and Care (ED), Acute Urinary Retention in Women (ED), How to Change a Catheter Drainage Bag (DC) Prescriptions: No Action (DME) lancets [FreeStyle Lancets] 28 gauge misc See Rx Instructions .Route Qty: 300 0RF Rx Instructions: Test 3 times per day (DME) blood-glucose meter [FreeStyle Lite Meter] Kit See Rx Instructions .Route Qty: 1 0RF Rx Instructions: As directed to test blood sugar 3 times per day (DME) FreeStyle Lite Strips Strip See Rx Instructions .Route Qty: 100 5RF Rx Instructions: three times per day (DME) lancets [FreeStyle Lancets] 28 gauge misc Qty: 200 2RF Rx Instructions: Check blood sugar three times a day as directed. (DME) FreeStyle Lite Strips Strip Qty: 200 2RF Rx Instructions: Test three times a day or as directed. isosorbide mononitrate 30 mg tablet extended release 24 hr 30 mg PO DAILY Qty: 90 3RF amlodipine 2.5 mg tablet 7.5 mg PO DAILY Qty: 270 3RF (DME) pen needle, diabetic 32 gauge x 5/32 needle See Rx Instructions .Route Qty: 100 5RF Rx Instructions: Inject insulin 4 times per day carvedilol 25 mg tablet 25 mg PO BID Qty: 180 1RF Eliquis 5 mg tablet 5 mg PO BID Qty: 60 2RF atorvastatin 80 mg tablet 80 mg PO BEDTIME Qty: 90 3RF insulin lispro [Humalog KwikPen Insulin] 100 unit/mL insulin pen See Protocol SUBCUT TIDWM Protocol: Insulin Correction Scale Less than or equal to 110 ---- Give (units): 0 111 to 150 Give (units): 0 151 to 200 Give (units): 4 201 to 250 Give (units): 6 251 to 300 Give (units): 8 301 to 350 Give (units): 10 Greater than 350 Give (units): 12 Call if Blood Glucose > : 400 Rx Instructions: Blood Sugar: <150 - 0 units 151-200 - 4 units 201-250 - 6 units 251-300 - 8 units 301-350 - 10 units 351-400 -12 units over 400 -14 units and call acetaminophen 500 mg Tablet 1,000 mg PO DAILY PRN (Reason: Pain) (DME) blood-glucose meter [FreeStyle Lite Meter] Kit Qty: 1 0RF Rx Instructions: As Directed cefuroxime axetil 250 mg tablet 250 mg PO Q12H 7 Days Qty: 14 0RF furosemide 20 mg tablet 20 mg PO Q OTHER DAY Qty: 30 2RF insulin glargine [Basaglar KwikPen U-100 Insulin] 100 unit/mL (3 mL) insulin pen subcut Referrals: Serjio Gutierrez MD [Physician, Urology] - 10/13/25 Print Language: Citizen Of [place]
[2025-10-09 14:39] VITALS: BP 153/70; PULSE 68; RESP 16; TEMP 36.7; O2SAT 94; BMI 33.2
[2025-10-09 14:57] LABS: MANUAL DIFF FLAG NO
[2025-10-09 15:01] LABS: Hematocrit 29.4 % (37.0-47.0); Hemoglobin 9.5 g/dl (12.0-16.0); Imm Gran Abs Auto 0.12 X10*3/uL (0.00-0.03); Imm Gran Pct Auto 1.2 % (0.0-0.4); Lymphocytes Absolute Auto 3.1 X10*3/uL (1.2-4.9); Mean Corpuscular HGB Conc 32.3 g/dl (31.0-35.0); Mean Corpuscular Hemoglobin 28.8 pg (27.0-33.0); Mean Corpuscular Volume 89.1 fL (80.0-98.0); NRBC Abs Auto 0.000 X10*3/uL (0.0-0.012); NRBC Pct Auto 0.0 /100WBC (0.0-0.2); Platelet Count 184 X10*3/uL (160-400); Red Blood Count 3.30 X10*6/uL (4.20-5.50); White Blood Count 10.1 X10*3/uL (4.8-10.8)
[2025-10-09 15:11] LABS: Alanine Aminotransferase 25 U/L (0-31); Albumin Level 3.8 g/dL (3.5-5.0); Alkaline Phosphatase 111 U/L (39-117); Anion Gap 11 (12-20); Aspartate Amino Transferase 21 U/L (5-31); Blood Urea Nitrogen 49 mg/dL (9-16); Calcium 9.2 mg/dL (8.4-10.2); Carbon Dioxide 21 mmol/L (22-29); Chloride 110 mmol/L (96-108); Creatinine Clr Calc Pharmacy 21.8; Estimated Glomerular Filt Rate 24; Potassium 5.2 mmol/L (3.3-5.1); Sodium 137 mmol/L (135-145); Total Protein 6.5 g/dL (6.5-8.0)
--- OUTSIDE RECORDS SUMMARY | 2025-10-09 17:55 | XMS_ITS | Clinical Summary ---
Author Organization [facility] Address [address] [place] [phone] Phone Care Team Providers Care Oxygen Therapy Teacher Name Role Phone Pcp, Unknown Primary [...] file Insurance MEDICARE PART A & B [id number] [place] [address] MEDICARE PART A & B [facility] A & B Member Subscriber Plan / Payer (Ef fective 2010-) Name:Loy Gaston Member ID:[id number] Relation to Subscriber:Self Name:Loy Gaston Subscriber ID:[id number] Payer ID:[id number] Group ID:Not on file Type:Medicare Address: [employer] [address] [address] [facility] MEDICARE PART A & B [facility] [employer] Care Teams Oxygen Therapy Teacher Relationship Specialty Start Date End Date Pcp, Unknown PCP - General 02/09/25 Additional Source Comments The information contained in this document represents components of the legal health record. It is not the complete legal health record.[facility]
[2025-10-09 18:36] VITALS: BP 132/63; PULSE 61; RESP 18; O2SAT 96
--- NOTE | 2025-10-09 20:35 | ED.FEMALEGU ---
HPI - Female Genitourinary General Chief complaint: Urogenital-Female Stated complaint: urinary issues Time Seen by Provider: 10/09/25 18:43 Related Data Home Medications ?Medication ?Instructions ?Recorded ?Confirmed acetaminophen 500 mg tablet 1,000 mg PO DAILY PRN Pain 02/06/24 09/14/25 insulin lispro 100 unit/mL See Protocol subcut TIDWM 03/01/24 09/14/25 subcutaneous pen (Humalog KwikPen (U-100) Insulin) insulin glargine 100 unit/mL (3 unit subcut 06/22/25 09/14/25 mL) subcutaneous pen (Basaglar KwikPen U-100 Insulin) Previous Rx's ?Medication ?Instructions ?Recorded lancets 28 gauge (FreeStyle #300 ea 02/06/24 Lancets) blood-glucose meter (FreeStyle #1 ea 02/07/24 Lite Meter kit) blood-glucose meter (FreeStyle #1 ea 02/13/24 Lite Meter kit) blood sugar diagnostic (FreeStyle #100 ea 03/13/24 Lite Strips) blood sugar diagnostic (FreeStyle #200 strips 03/18/25 Lite Strips) lancets 28 gauge (FreeStyle #200 ea 03/18/25 Lancets) isosorbide mononitrate 30 mg 30 mg PO DAILY #90 tabs 04/07/25 tablet,extended release 24 hr amlodipine 2.5 mg tablet 7.5 mg (3 x 2.5 mg) PO DAILY #270 04/16/25 tabs pen needle, diabetic 32 gauge x #100 ea 05/21/25 furosemide 20 mg tablet 20 mg PO Q OTHER DAY edema #30 tabs 06/03/25 carvedilol 25 mg tablet 25 mg PO BID #180 tabs 06/14/25 apixaban 5 mg tablet (Eliquis) 5 mg PO BID #60 tabs 08/13/25 atorvastatin 80 mg tablet 80 mg PO BEDTIME #90 tabs 09/27/25 cefuroxime axetil 250 mg tablet 250 mg PO Q12H 7 days #14 tabs 09/30/25 Allergies Allergy/AdvReac Type Severity Reaction Status Date / Time Penicillins (PENICILLINS) Allergy Unknown Rash Verified 10/09/25 14:44 lactose AdvReac Mild Unknown Verified 10/09/25 14:44 shellfish Allergy Mild Unknown Uncoded 09/30/25 13:39 [facility] Past Medical History Medical History Risk for falls SOB (shortness of breath) Hospital discharge follow-up CKD stage 3b, GFR 30-44 ml/min Recurrent UTI Diabetes type 2, no ocular involvement Right knee pain UTI (urinary tract infection) Uncontrolled type 2 diabetes mellitus with hyperglycemia Pain of left calf Acute hyperkalemia Dysuria History of UTI Well woman exam Asthma Establishing care with new doctor, encounter for History of stroke Acute cystitis with hematuria Class 1 obesity Leg edema CVA (cerebral vascular accident) (HFpEF) heart failure with preserved ejection fraction Left leg weakness Gout of big toe Elevated troponin Bilateral wheezing Increasing shortness of breath 2+ pitting edema Cataract Hypertension Gout Surgical History History of cholecystectomy H/O: hysterectomy Social History Social History Household Members: Children Household Members Other:: Daughter. 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 PRACTITIONER.) Alcohol intake: never Comment: refusing alarms Patient Tobacco Use Status: Former Tobacco user Smoked in Last 30 Days: No e-Cigarette/Vaping Use: Never Used Second Hand Smoke Exposure: No Use of substances other than those prescribed or required for medical reasons: No Advance Directives: No Advance Directives Information Provided: No Advance Directives Date on File: 04/08/24 Do you have a plan to hurt others: No Plan Patient : No service: No Current occupational status: retired Cognitive needs: No Hearing needs: No Vision needs: No Physical Exam Vital Signs: Vital Signs: Last Vital Signs Temp 97.9 F 10/09/25 21:45 Pulse 63 10/09/25 21:45 Resp 14 10/09/25 21:45 BP 117/52 L 10/09/25 21:45 Pulse Ox 96 10/09/25 21:45 O2 Del Method Room Air 10/09/25 21:45 BMI result Body Mass Index 33.2 Medications Administered Discontinued Medications Generic Name Dose Route Start Last Admin Trade Name Freq PRN Reason Stop Dose Admin Sodium Chloride 1,000 mls @ 999 mls/hr 10/09/25 20:45 10/09/25 21:08 Ns IV 10/09/25 21:45 999 mls/hr .Q1H1M BURTON Administration Medical Decision Making Medical Decision Making [facility] Narrative: Patient has significant urinary retention bladder scan over 800 cc of urine. A Ponce was placed. Drained out mostly urine. Symptomatically feels improved. Patient is on Eliquis. A CT scan of the abdomen pelvis was done. There was no evidence for obstruction there is no evidence for kidney stone there is no evidence for bleed. Patient's white count is 10. Hemoglobin is 9.5 this is baseline. Patient's electrolytes showed an elevated creatinine this is also baseline it is a 2 today. Patient's urine showed no signs of infection after the Ponce catheter will discharge patient home patient has a history of urinary retention in the past has follow-up with Urology will discharge home Differential Diagnosis Differential Diagnoses: The differential diagnosis associated with the presentation includes Urinary retention Admission/Observation Consideration of admission/observation: Escalation of care including admission/observation considered Lab Data [facility] Lab Attestation statement: I reviewed the patient's lab results. 10/09/25 14:51 10/09/25 14:51 Labs: Lab Results 10/09/25 10/09/25 Range/Units 14:51 20:42 WBC 10.1 (4.8-10.8) X10*3/uL RBC 3.30 L (4.20-5.50) X10*6/uL Hgb 9.5 L (12.0-16.0) g/dl Hct 29.4 L (37.0-47.0) % MCV 89.1 (80.0-98.0) fL MCH 28.8 (27.0-33.0) pg MCHC 32.3 (31.0-35.0) g/dl RDW 14.5 (11.0-16.0) % Plt Count 184 (160-400) X10*3/uL MPV 10.3 (9.4-12.3) fL Immature Gran % (Auto) 1.2 H (0.0-0.4) % Neut % (Auto) 46.6 (45-73) % Lymph % (Auto) 31.1 (20-40) % [place] % (Auto) 10.7 (2-11) % Eos % (Auto) 10.2 H (0-4) % Baso % (Auto) 0.2 (0-2) % Lymph # (Auto) 3.1 (1.2-4.9) X10*3/uL [place] # (Auto) 1.1 (0.1-1.2) X10*3/uL Eos # (Auto) 1.0 H (0.0-0.4) X10*3/uL Baso # (Auto) 0.0 (0.0-0.2) X10*3/uL Abs Immat Gran (auto) 0.12 H (0.00-0.03) X10*3/uL Absolute Neuts (auto) 4.7 (2.0-8.3) x10*3/uL Absolute Nucleated RBC 0.000 (0.0-0.012) X10*3/uL Nucleated RBC % (auto) 0.0 (0.0-0.2) /100WBC Sodium 137 (135-145) mmol/L Potassium 5.2 H (3.3-5.1) mmol/L Chloride 110 H (96-108) mmol/L Carbon Dioxide 21 L (22-29) mmol/L Anion Gap 11 L (12-20) BUN 49 H (9-16) mg/dL Creatinine 2.02 H (0.5-1.4) mg/dL Estim Creat Clear Calc 21.8 Estimated GFR 24 Random Glucose 106 (60-115) mg/dL Calcium 9.2 (8.4-10.2) mg/dL Total Bilirubin 0.3 (0.0-1.0) mg/dL AST 21 (5-31) U/L ALT 25 (0-31) U/L Alkaline Phosphatase 111 (39-117) U/L Total Protein 6.5 (6.5-8.0) g/dL Albumin 3.8 (3.5-5.0) g/dL Urine Color Yellow Urine Appearance Clear Urine pH 5.5 (5.0-9.0) Ur Specific [place] <= 1.005 (1.005-1.025) Urine Protein 100 (2+) H (Neg-Trace) mg/dL Urine Glucose (UA) Negative (Negative) mg/dL Urine Ketones Negative (Negative) mg/dL Urine Blood Moderate (2+) H (Negative) Urine Nitrite Negative (Negative) Ur Leukocyte Esterase Negative (Negative) Urine RBC 3-5 H (0-2) /HPF Urine WBC 0-5 (0-5) /HPF Ur Squamous Epith Cells 0-2 (0-2) /HPF Urine Bacteria None Seen (None Seen) Hyaline Casts 0-2 (0-2) /LPF Independent Interpretation I performed an independent interpretation of an: CT Scan (CT scan showed no gross obstruction) Radiology Impression Discussion of test interpretation with radiology: I have reviewed the radiologist's reading. Independent Historian Clinical information obtained from an independent historian. History obtained from or confirmed by: Parent Additional history obtained through patient's daughter External Record Review External record reviewed: Inpatient record Chronic Conditions Patient?s care impacted by: Diabetes and Hypertension History of CVA on Eliquis. History of urinary retention history of chronic renal insufficiency Discharge Plan Discharge Clinical Impression: Acute urinary retention Patient Disposition: Home, Self-Care Instructions: Ponce Catheter Placement and Care (ED), Acute Urinary Retention in Women (ED), How to Change a Catheter Drainage Bag (DC) Prescriptions: No Action (DME) lancets [FreeStyle Lancets] 28 gauge misc See Rx Instructions .Route Qty: 300 0RF Rx Instructions: Test 3 times per day (DME) blood-glucose meter [FreeStyle Lite Meter] Kit See Rx Instructions .Route Qty: 1 0RF Rx Instructions: As directed to test blood sugar 3 times per day (DME) FreeStyle Lite Strips Strip See Rx Instructions .Route Qty: 100 5RF Rx Instructions: three times per day (DME) lancets [FreeStyle Lancets] 28 gauge misc Qty: 200 2RF Rx Instructions: Check blood sugar three times a day as directed. (DME) FreeStyle Lite Strips Strip Qty: 200 2RF Rx Instructions: Test three times a day or as directed. isosorbide mononitrate 30 mg tablet extended release 24 hr 30 mg PO DAILY Qty: 90 3RF amlodipine 2.5 mg tablet 7.5 mg PO DAILY Qty: 270 3RF (DME) pen needle, diabetic 32 gauge x 5/32 needle See Rx Instructions .Route Qty: 100 5RF Rx Instructions: Inject insulin 4 times per day carvedilol 25 mg tablet 25 mg PO BID Qty: 180 1RF Eliquis 5 mg tablet 5 mg PO BID Qty: 60 2RF atorvastatin 80 mg tablet 80 mg PO BEDTIME Qty: 90 3RF insulin lispro [Humalog KwikPen Insulin] 100 unit/mL insulin pen See Protocol SUBCUT TIDWM Protocol: Insulin Correction Scale Less than or equal to 110 ---- Give (units): 0 111 to 150 Give (units): 0 151 to 200 Give (units): 4 201 to 250 Give (units): 6 251 to 300 Give (units): 8 301 to 350 Give (units): 10 Greater than 350 Give (units): 12 Call if Blood Glucose > : 400 Rx Instructions: Blood Sugar: <150 - 0 units 151-200 - 4 units 201-250 - 6 units 251-300 - 8 units 301-350 - 10 units 351-400 -12 units over 400 -14 units and call acetaminophen 500 mg Tablet 1,000 mg PO DAILY PRN (Reason: Pain) (DME) blood-glucose meter [FreeStyle Lite Meter] Kit Qty: 1 0RF Rx Instructions: As Directed cefuroxime axetil 250 mg tablet 250 mg PO Q12H 7 Days Qty: 14 0RF furosemide 20 mg tablet 20 mg PO Q OTHER DAY Qty: 30 2RF insulin glargine [Basaglar KwikPen U-100 Insulin] 100 unit/mL (3 mL) insulin pen subcut Referrals: Serjio Gutierrez MD [Physician, Urology] - 10/13/25 Print Language: German
[2025-10-09 20:59] LABS: Appearance Urine Clear; Glucose Urine UA Negative (Negative); PH 5.5 (5.0-9.0); Specific Gravity - Urine <= 1.005 (1.005-1.025); UMIC TRIGGER UACC YES
[2025-10-09 21:45] VITALS: BP 117/52; PULSE 63; RESP 14; TEMP 36.6; O2SAT 96
[2025-10-09 23:03] VITALS: BP 140/68; PULSE 65; RESP 16; TEMP 36.5; O2SAT 97
[2025-10-09 23:10] VITALS: BP 140/68; PULSE 65; RESP 16; TEMP 36.5; O2SAT 97
== END 2025-10-09 23:21 | disposition home or self-care (01) ==
PROVIDERS: Physician Assistant Medical; Emergency Provider Emergency Medicine Emergency Medical Services; PCP Internal Medicine
DX: R33.9 Retention of urine, unspecified (principal); I12.9 Hypertensive chronic kidney disease with stage 1 through stage 4 chronic kidney disease, or unspecified chronic kidney disease; E11.22 Type 2 diabetes mellitus with diabetic chronic kidney disease; N18.30 Chronic kidney disease, stage 3 unspecified; Z87.891 Personal history of nicotine dependence
CPT/HCPCS: 36415; 51702; 74176; 76775; 80053; 81001; 81003; 85025; 96360; 96361; 99284

== ENCOUNTER → 2025-10-09 14:43 | Outpatient (BNV) | payer MEDICARE, MEDICAID, SELFPAY | PROVIDERS: PCP Internal Medicine; Visit Provider Radiology Diagnostic Radiology | DX: N20.0 Calculus of kidney (principal); K91.5 Postcholecystectomy syndrome; S32.010A Wedge compression fracture of first lumbar vertebra, initial encounter for closed fracture | CPT/HCPCS: 74176 ==

== ENCOUNTER 2025-10-12 10:38 | Outpatient (AMB) | payer MEDICARE, MEDICAID, SELFPAY ==
--- NOTE | 2025-10-12 10:41 | HO.NEPHOV ---
Vital Signs 10/12/25 10:47 Weight 157 lb BP 116/56 L Blood Pressure Location Rt brachial Position Sitting Pulse 69 Pulse Source Pulse Oximeter Pulse Oximetry (%) 92 Oxygen Delivery Method Room Air Intake Visit Reasons: 6 wks f/u w/ labs-CONF Glazier Artist Required: No Accompanied by: Daughter Allergies Penicillins (PENICILLINS) Allergy (Unknown, Verified 10/12/25 10:46) Rash lactose Adverse Reaction (Mild, Verified 10/12/25 10:46) Unknown shellfish Allergy (Mild, Uncoded 09/30/25 13:39) Unknown Medication List - Last Reconciled 10/12/25 by Cristhian Dolan MD acetaminophen 1,000 mg PO DAILY PRN amlodipine 7.5 mg (3 x 2.5 mg) PO DAILY apixaban (Eliquis) 5 mg PO BID atorvastatin 80 mg PO BEDTIME blood sugar diagnostic (FreeStyle Lite Strips) three times per day blood sugar diagnostic (FreeStyle Lite Strips) Test three times a day or as directed. blood-glucose meter (FreeStyle Lite Meter kit) As Directed blood-glucose meter (FreeStyle Lite Meter kit) As directed to test blood sugar 3 times per day carvedilol 25 mg PO BID furosemide 20 mg PO Q OTHER DAY insulin glargine (Basaglar KwikPen U-100 Insulin) units subcut insulin lispro (Humalog KwikPen (U-100) Insulin) See Protocol sliding scale doses subcut TIDWM isosorbide mononitrate ER 30 mg PO DAILY lancets (FreeStyle Lancets) Test 3 times per day lancets (FreeStyle Lancets) Check blood sugar three times a day as directed. pen needle, diabetic Inject insulin 4 times per day HPI Comments Details: 73-year-old woman with a history of longstanding diabetes mellitus for more than 20 years. She was recently hospitalized and was found to have acute kidney injury. During workup she was found to have about 5 g of proteinuria. At the time of discharge serum creatinine decreased to 2.8 mg/dL. She appeared euvolemic. She was on valsartan and Jardiance which were placed on hold. Today she was accompanied by her daughter. Blood pressure is still suboptimal blood sugar is suboptimal. She has no shortness of breath at rest. She has shortness of breath on exertion. no nausea or vomiting. No urinary symptoms. 10/08/24 Seen by And cardiology Sleep apnea requiring O2 01/11/25 Still at [facility] On LAsix 40 mg PRN 04/02/25 74-year-old female presenting with persistent urinary tract infection (UTI) complicated by acute kidney injury (DANISH). After a UTI diagnosis in mid-February, initial treatment with Ciprofloxacin was altered to Nitrofurantoin due to resistance patterns and drug allergies. Despite the new antibiotic regimen, follow-up urine cultures remain positive for infection as of March 23. Complications include acute kidney injury, with lab results indicating elevated potassium levels, requiring consideration in treatment decisions. Symptomatically, the patient has noted intermittent confusion, possibly related to the ongoing UTI. Blood pressure variations, with a notably low reading compared to usual clinical figures, and significant fluctuations in blood glucose levels relate to her diabetic status, compounding the management challenge. 06/03/25: Overall doing well.Did not take lasix for few days No dyspnea Mild edema 08/31/2025 The patient is a 75-year-old female presenting with chronic kidney disease and anemia. Her kidney function remains reduced, with levels around 17 to 20%, and there has been no improvement noted. The patient is also experiencing anemia, which is being monitored closely, with potential plans for intervention if hemoglobin levels decrease further. The patient has a history of urinary tract infections, with the most recent episode treated with antibiotics in early July. She reports frequent urination with slow stream, but no current burning sensation. The patient experiences hyperglycemia, with blood sugar levels ranging from 170s to 250s, occasionally reaching 300. Her blood sugar levels tend to increase throughout the day. Cognitive impairment is noted, potentially related to a previous stroke, with symptoms including short-term memory issues and increased confusion. 10/12/25 REcently had UTI REctal prolapse [facility] Medical History Risk for falls SOB (shortness of breath) Hospital discharge follow-up CKD stage 3b, GFR 30-44 ml/min Recurrent UTI Diabetes type 2, no ocular involvement Right knee pain UTI (urinary tract infection) Uncontrolled type 2 diabetes mellitus with hyperglycemia Pain of left calf Acute hyperkalemia Dysuria History of UTI Well woman exam Asthma Establishing care with new doctor, encounter for History of stroke Acute cystitis with hematuria Class 1 obesity Leg edema CVA (cerebral vascular accident) (HFpEF) heart failure with preserved ejection fraction Left leg weakness Gout of big toe Elevated troponin Bilateral wheezing Increasing shortness of breath 2+ pitting edema Cataract Hypertension Gout Surgical History History of cholecystectomy H/O: hysterectomy Social History Household Members: Children Household Members Other:: Daughter. 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 Comfortable. HENT: Neck supple. Mucosa moist. Pulmonary: Lungs aeration equal. No rales. Cardiology: Heart S1-S2 heard. No gallop. Abdomen: Soft. Non tender. Bowel sounds normal. Neurologic: No involuntary movements. No myoclonus. Extremities: No edema. No rash. Vital Signs: Last Vital Signs Pulse 69 10/12/25 10:47 BP 116/56 L 10/12/25 10:47 Pulse Ox 92 10/12/25 10:47 Oxygen Delivery Method Room Air 10/12/25 10:47 Results Reviewed Nephrology Results: Hgb, (12.0-16.0) 9.5 g/dl L 10/09/25 WBC, (4.8-10.8) 10.1 X10*3/uL 10/09/25 Plt Count, (160-400) 184 X10*3/uL 10/09/25 Sodium, (135-145) 137 mmol/L 10/09/25 Potassium, (3.3-5.1) 5.2 mmol/L H 10/09/25 Chloride, (96-108) 110 mmol/L H 10/09/25 Carbon Dioxide, (22-29) 21 mmol/L L 10/09/25 BUN, (9-16) 49 mg/dL H 10/09/25 Creatinine, (0.5-1.4) 2.02 mg/dL H 10/09/25 Calcium, (8.4-10.2) 9.2 mg/dL 10/09/25 Urine Protein, (Neg-Trace) 100 (2+) mg/dL H 10/09/25 Renal US 07/13/24 Assessment & Plan Assessment & Plan (1) Acute kidney injury superimposed on chronic kidney disease: Code(s): N17.9 - Acute kidney failure, unspecified; N18.9 - Chronic kidney disease, unspecified Category: Medical (2) Chronic kidney disease (CKD) stage G4/A1, severely decreased glomerular filtration rate (GFR) between 15-29 mL/min/1.73 square meter and albuminuria creatinine ratio less than 30 mg/g: Code(s): N18.4 - Chronic kidney disease, stage 4 (severe) Category: Medical Plan 75-year-old woman with chronic kidney disease. She has proteinuria most likely due to underlying diabetic nephropathy. 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 Baseline creatinine is around 2.2 mg/dL. She sustained DANISH due to hypoperfusion. Renal function has improved and close to baseline. Anemia due to underlying chronic kidney disease. No absolute indication for Epogen yet She will follow closely. Splenic mass- follow with PCP Rectal prolapse and Recent UTI- s/p Antibiotics ; Follow with Urology Orders: Orders Basic Metabolic Panel 3 Months N18.4 - Chronic kidney disease, stage 4 (severe) Complete Blood Count no Diff 3 Months N18.4 - Chronic kidney disease, stage 4 (severe) Coding Level of Care Code Est Pt Level 4 (54660) Diagnoses Acute kidney injury superimposed on chronic kidney disease N17.9; N18.9 Chronic kidney disease (CKD) stage G4/A1, severely decreased glomerular filtration rate (GFR) between 15-29 mL/min/1.73 square meter and albuminuria creatinine ratio less than 30 mg/g N18.4
[2025-10-12 10:47] VITALS: BP 116/56; PULSE 69; O2SAT 92
--- OUTSIDE RECORDS SUMMARY | 2025-10-12 13:31 | XMS_ITS | Clinical Summary ---
Author Organization [facility] Address [address] [place] [phone] Phone Care Team Providers Care Photo Mask Inspector Name Role Phone Pcp, Unknown Primary Care [...] file Insurance MEDICARE PART A & B [id number] [place] [address] MEDICARE PART A & B [facility] [employer] A [facility] B Member Subscriber Plan / Payer (Ef fective 2010-) Name:Loy Gaston Member ID:[id number] Relation to Subscriber:Self Name:Loy Gaston Subscriber ID:[id number] Payer ID:[id number] Group ID:Not on file Type:Medicare Address: [employer] [address] [address] [facility] MEDICARE PART A & B [facility] [employer] Care Teams Photo Mask Inspector Relationship Specialty Start Date End Date Pcp, Unknown PCP - General 02/09/25 Additional Source Comments The information contained in this document represents components of the legal health record. It is not the complete legal health record.[facility]
== END 2025-10-12 16:56 | disposition home or self-care (01) ==
LOC: HO.HKA 10:39
PROVIDERS: PCP Internal Medicine; Visit Provider Internal Medicine Hypertension Specialist
DX: N17.9 Acute kidney failure, unspecified (principal); N18.9 Chronic kidney disease, unspecified; N18.4 Chronic kidney disease, stage 4 (severe)
CPT/HCPCS: 99214

== ENCOUNTER → 2025-10-12 10:38 | Outpatient (BNVA) | payer MEDICARE, MEDICAID, SELFPAY | PROVIDERS: PCP Internal Medicine; Visit Provider Internal Medicine Hypertension Specialist | DX: E11.21 Type 2 diabetes mellitus with diabetic nephropathy (principal); I12.9 Hypertensive chronic kidney disease with stage 1 through stage 4 chronic kidney disease, or unspecified chronic kidney disease; N17.9 Acute kidney failure, unspecified; N18.4 Chronic kidney disease, stage 4 (severe); D63.1 Anemia in chronic kidney disease; Z87.891 Personal history of nicotine dependence | CPT/HCPCS: 99212 ==

== ENCOUNTER → 2025-10-18 09:56 | Outpatient (BNVA) | payer MEDICARE, SELFPAY | PROVIDERS: PCP Internal Medicine; Visit Provider Urology | DX: R33.9 Retention of urine, unspecified (principal) | CPT/HCPCS: 51700; 51798 ==

== ENCOUNTER 2025-10-26 11:05 | Outpatient (AMB) | payer MEDICARE, MEDICAID, SELFPAY ==
--- NOTE | 2025-10-26 11:12 | A.OFFVIS_ITS ---
Vital Signs 10/26/25 11:13 Height 4 ft 11 in Weight 161 lb BMI 32.5 BP 124/68 Blood Pressure Location Lt brachial Position Sitting Pulse 62 Pulse Source Pulse Oximeter Pulse Oximetry (%) 95 Oxygen Delivery Method Room Air Intake Visit Reasons: nocturnal hypoxemia Allergies Penicillins (PENICILLINS) Allergy (Unknown, Verified 10/26/25 11:16) Rash lactose Adverse Reaction (Mild, Verified 10/26/25 11:16) Unknown shellfish Allergy (Mild, Uncoded 10/26/25 11:16) Unknown HPI Comments Details: Enma Staples is a pleasant 75 year old female, former minimal smoker, with underlying asthma, CHF, DMII, HTN, 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 Today she is accompanied by her daughter. Prior home sleep study revealed significant nocturnal hypoxemia <88% for 321 minutes, negative for NOE 06/2024 and continues using 1L supplemental oxygen NOC. 6MWT performed and did not require supplemental oxygen with exertion. Prior PFT revealed moderate obstructive ventilatory defect with positive bronchodilator response and was started on Breo however had stopped using as she could not tolerate the DPI. She was then switched to Advair however after the first dose taken prior to bed, she woke up in the middle of the night with midsternal chest pain prompting ED evaluation at [facility]. During ED evaluation troponins were found to be elevated, kept overnight for observation having echo, ekg and stress test which were unremarkable and discharged the following day. Although low likelihood chest pain related to Advair and she has since restarted. She reports some wheezing, which is noted to be worse when her ankle swelling increases and when she is lying down. Regarding her medications, there was confusion about her inhaler, but it was clarified that she is on a generic form of Advair. She had previously been switched to Breo after a hospitalization for chest pain but is now back on Advair, with no recurrence of chest pain. Her adherence to the inhaler has been inconsistent, using it only a couple of times a week. She also uses supplemental oxygen at night, typically at 2 liters, although prior testing indicated 1L is sufficient. The patient experiences peripheral edema, which is managed with Lasix every other day. She has been instructed to take it for a few consecutive days if swelling worsens, which was recently done over the weekend with some improvement. Her medical history is significant for chronic kidney disease, which complicates diuretic management. Pulmonology History - Diagnoses of asthma confirmed by breathing tests in September. - History of hospitalization for chest pain, which prompted a temporary change in inhaler therapy. - Overnight Oximetry (prior): A repeat study showed nocturnal hypoxia for 8.5 minutes, with 1 liter of supplemental oxygen proving effective. [facility] Medical History Risk for falls SOB (shortness of breath) Hospital discharge follow-up CKD stage 3b, GFR 30-44 ml/min Recurrent UTI Diabetes type 2, no ocular involvement Right knee pain UTI (urinary tract infection) Uncontrolled type 2 diabetes mellitus with hyperglycemia Pain of left calf Acute hyperkalemia Dysuria History of UTI Well woman exam Asthma Establishing care with new doctor, encounter for History of stroke Acute cystitis with hematuria Class 1 obesity Leg edema CVA (cerebral vascular accident) (HFpEF) heart failure with preserved ejection fraction Left leg weakness Gout of big toe Elevated troponin Bilateral wheezing Increasing shortness of breath 2+ pitting edema Cataract Hypertension Gout Surgical History History of cholecystectomy H/O: hysterectomy Social History Household Members: Children Household Members Other:: Daughter. Housing: Apartment Do you presently have visiting nurse or other home services: Yes ([facility] and [employer].) Alcohol intake: never Comment: refusing alarms Patient Tobacco Use Status: Former Tobacco user e-Cigarette/Vaping Use: Never Used Second Hand Smoke Exposure: No Advance Directives Date on File: 04/08/24 service: No Current occupational status: retired Cognitive needs: No Hearing needs: No Vision needs: No Female Reproductive History Menstrual Age of Menarche: 20 Review of Systems Const Denies chills, Denies excessive sweating, Denies fever(s), Denies headache(s) and Denies night sweats Eyes Denies dry eyes, Denies irritation and Denies itchy eyes ENT Reports Normal hearing present and Denies headache(s) Card Denies chest pain, Denies chest pain at rest, Denies chest pain with activity, Denies claudication, Reports dyspnea on exertion and Denies paroxysmal nocturnal dyspnea Resp Denies change in phlegm color, Denies chest congestion, Denies cough, Denies excessive phlegm production, Denies pain on inspiration, Denies pain with cough, Reports dyspnea on exertion, Denies stridor and Reports wheezing Musc Denies myalgias Neuro Reports Normal hearing present and Denies headache(s) Endo Denies excessive sweating [place]/Lymph Denies lymphadenopathy Aller/Immun Denies itchy eyes, Denies seasonal rhinorrhea and Reports wheezing Physical Exam Exam Exam: Physical Exam - Respiratory: Lungs are clear to auscultation bilaterally. No wheezing noted during the examination. However, a cough was elicited on deep inspiration, suggesting airway hyperreactivity. - Extremities: Significant bilateral lower extremity edema is present, with one side noted to be more swollen than the other. Vital Signs: Last Vital Signs Pulse 62 10/26/25 11:13 BP 124/68 10/26/25 11:13 Pulse Ox 95 10/26/25 11:13 Oxygen Delivery Method Room Air 10/26/25 11:13 BMI result Body Mass Index 32.5 Const General: cooperative, healthy appearing, comfortable, no acute distress, well developed and alert Nutritional Appearance: obese Orientation/consciousness: patient oriented x3 Limitations: wheelchair HEENT Head: Yes normal to inspection, Yes normocephalic and Yes atraumatic Ears: hearing grossly normal bilaterally and external ears normal Eyes General: appearance normal, both eyes and all related structures Eyelids: Yes eyelids normal Sclerae: sclerae normal EOM: EOMs intact bilaterally Neck Neck: Yes normal visual inspection and Yes no lymphadenopathy Lymphatic: no lymphadenopathy noted Chest Chest palpation & inspection: normal inspection of the chest Resp Effort & Inspection: normal respiratory effort, able to speak in complete sentences, no audible wheezes, no cough, no stridor, not tachypneic, no tripod positioning and no use of accessory muscles Auscultation: diminished lung sounds Cardio Jugular venous distension: no JVD Rate: regular rate Rhythm: regular rhythm Skin Other: warm, dry General skin exam: no rashes or lesions noted Neuro General: patient oriented x3 Cranial nerves: Yes Normal hearing present Cognition (Neuro): normal cognition Extrem Other: 1-2+ pitting edema BLE Psych Appearance: grossly normal and well kempt Speech and movement: Normal speech and movement present and Clear speech present Affect: normal affect Attitude: cooperative Thought process: Normal thought process present Thought content: Normal thought content present Insight: Good insight present (Psych) Judgement: Good judgement present (Psych) Assessment & Plan Assessment & Plan (1) Asthma: Code(s): J45.909 - Unspecified asthma, uncomplicated Category: Medical (2) Nocturnal hypoxemia: Code(s): G47.34 - Idiopathic sleep related nonobstructive alveolar hypoventilation Category: Medical (3) Dyspnea on exertion: Code(s): R06.09 - Other forms of dyspnea Category: Medical (4) (HFpEF) heart failure with preserved ejection fraction: Code(s): I50.30 - Unspecified diastolic (congestive) heart failure Category: Medical Qualifiers: Heart failure chronicity: chronic Qualified Code(s): I50.32 - Chronic diastolic (congestive) heart failure Plan Clarified with the patient and her daughter that her current inhaler, a generic for Advair, should be continued. Stressed the importance of using this inhaler daily to control her asthma. We reviewed her oxygen use, and explained that based on her prior testing, 1L at night is the appropriate. In response to the finding of atelectasis on her recent scan, provided an incentive spirometer and demonstrated how to use it to perform deep breathing exercises, explaining that this will help open her airways and prevent pneumonia. We discussed the careful balance required in managing her leg swelling with Lasix due to her chronic kidney disease. Advised her to continue the current regimen but to contact her cardiology team if the swelling persists. Recommended a follow-up appointment in six months if she is doing well, and to call sooner if concerns arise. All questions were answered and patient is in agreement of plan. Patient Instructions - Use your purple inhaler (Advair) every day, twice daily. - Make sure to rinse your mouth with water after you use your inhaler. - Use your nighttime oxygen at a setting of 1L. - Use the plastic breathing device (incentive spirometer) as shown. Breathe in slowly to make the piston rise to the 1500 jas and try to hold your breath for a few seconds. - Continue taking your water pill (Lasix) every other day, as prescribed. - If your leg swelling does not get better, call your heart doctor, - We will plan to see you back in the office in about 6 months. Please call us sooner if your breathing gets worse or if you have other concerns. Patient was informed and verbally consented to the use of an ambient scribe for clinic note documentation during this visit. Coding Level of Care Code Est Pt Level 4 (86737) Diagnoses Asthma J45.909 Nocturnal hypoxemia G47.34 Dyspnea on exertion R06.09 Chronic heart failure with preserved ejection fraction I50.32 Heart failure chronicity: chronic
[2025-10-26 11:13] VITALS: BP 124/68; PULSE 62; O2SAT 95; BMI 32.5
--- OUTSIDE RECORDS SUMMARY | 2025-10-26 15:03 | XMS_ITS | Clinical Summary ---
Author Organization [facility] Address [address] [place] [phone] Phone Care Team Providers Care Barrel Polisher Inside Name Role Phone Pcp, Unknown Primary Care [...] file Insurance MEDICARE PART A & B [id number] [place] [address] [id number] Member Subscriber Plan / Payer (Ef fective 2010-) Name:Loy Gaston Member ID:[id number] Relation to Subscriber:Self Name:Loy Gaston Subscriber ID:[id number] Payer ID:[id number] Group ID:Not on file Type:Medicare Address: [employer] [address] [address] [facility] MEDICARE PART A & B [facility] Care Teams Barrel Polisher Inside Relationship Specialty Start Date End Date Pcp, Unknown PCP - General 02/09/25 Additional Source Comments The information contained in this document represents components of the legal health record. It is not the complete legal health record.[facility]
== END 2025-10-26 11:37 | disposition home or self-care (01) ==
LOC: HO.HPSW 11:06
PROVIDERS: PCP Internal Medicine; Visit Provider Nurse Practitioner Family
DX: J45.909 Unspecified asthma, uncomplicated (principal); G47.34 Idiopathic sleep related nonobstructive alveolar hypoventilation; R06.09 Other forms of dyspnea; I50.32 Chronic diastolic (congestive) heart failure
CPT/HCPCS: 99214

== ENCOUNTER → 2025-10-26 11:05 | Outpatient (BNVA) | payer MEDICARE, MEDICAID, SELFPAY | PROVIDERS: PCP Internal Medicine; Visit Provider Nurse Practitioner Family | DX: J45.909 Unspecified asthma, uncomplicated (principal); G47.34 Idiopathic sleep related nonobstructive alveolar hypoventilation; R06.09 Other forms of dyspnea; I11.0 Hypertensive heart disease with heart failure; I50.32 Chronic diastolic (congestive) heart failure; Z87.891 Personal history of nicotine dependence; Z99.81 Dependence on supplemental oxygen | CPT/HCPCS: 99212 ==